=== PATIENT | female | born 1970 | race Caucasian/White ===

== ENCOUNTER 2017-04-10 08:30 | Outpatient (RCR) | payer OTHER, SELFPAY ==
--- NOTE | 2017-02-01 12:17 | HP.PTEVAL_ITS ---
Patient's Visit Information HANNAH HU is a 46 year old F referred to Physical Therapy by Tabitha Musa DO with a diagnosis of RIGHT CLAVICLE PAIN. Date of Evaluation: 02/01/17 Physical Therapist: Sarah Galvan - Visit Plan Frequency: 2-3x /Week Duration: 4-6 Weeks Plan: CERVICAL AND RIGHT SHOULDER MODALITIES NEEDED. RESPONDED WELL TO US TODAY. ADD CTX AND E-STIM WITH CP OR MH NEXT VISIT. POSTURE CORRECTION/ STRENGTHEING. KLAUS UE AND CERVICAL ROM/STRETCHING AND STRENGTHENING NEEDED. 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 Disability: NO. Present symptoms: RIGHT CLAVICLE PAIN. COMES AND GOES. INTERMITTEN LEFT NECK AND TRAP PAIN TOO PAIN IN CLAVICLE REGION INCREASES. Present since: JULY 2016. Pain Scale: WORST 5/10, LEAST 0/10. Currently: 10. UNCHANGING. Commenced as a result of: NO APPARENT REASON. Symptoms at onset: LOCALIZED RIGHT CLAVICLE REGION PAIN. Worse: SITTING IN THE CAR, SCAPULAR DEPRESSION. VERY POSITIONAL. IF SHE MOVES OUT OF THOSE POSITIONS IT GOES AWAY. Better: SEE PREVIOUS. Disturbed sleep: NO. Previous history/Previous treatment: HISTORY OF WHIPLASH A FEW TIMES. STRAIGHTENING OF THE CERVICAL LORDOSIS. NO NECK SURGERY. NO NECK INJECTIONS. NO SHOULDER SURGERY. Gait: RECENT LEFT KNEE SCOPE 3 WEEKS AGO BUT WORKING. Accidents: NONE RECENT. Unexplained weight loss: NO. Imaging: NECK AND SHOULDER X-RAYS - NEGATIVE. MRI IS NEGATIVE. BUT FOUND GOITER. HAVE SEEN SPECIALISTS FOR GOITER AND NO TREATMENT RECOMMENDED AT THIS TIME. SHE IS GOING TO HAVE A BIOPSY THOUGH. SHE HAS ALSO SEEN A FUNCTIONAL MEDICINE DOCTOR AND IS MAKING DIETARY CHANGES. PMH: POTS, GOITER - TEVIN'S DZ., RECENT LEFT CALF PAIN - WENT TO ED AND HAD DOPPLER THAT WAS NEGATIVE. Recent major surgery: KLAUS GLUT MED SURGERIES. OTHER: TINGLING IN RIGHT UE FOR YEARS IF SHE SLEEPS ON IT. GOES AWAY QUICKLY. - Objective THIS PATIENT AMBULATES INDEP'LY INTO PT WITH NO AD'S. SHE IS PLEASANT AND COOPERATIVE TO WORK WITH. KLAUS UE LIGHT TOUCH SENSATION IS INTACT AND SYMMETRICAL. KLAUS UE ROM AND STRENGTH IS WFL. CERVICAL MVMT LOSS: FLEX - NIL, PRO - NIL, EXT - MIN, RET - MOD TO LETICIA, RIGHT ROT - MOD, LEFT ROT - MIN, RIGHT SB - MIN, LEFT SB - MIN. RETRACTION, KLAUS ROTATION, LEFT SB AND TO A LESSER DEGREE RIGHT SB PROVOKES RIGHT CLAVICLE PAIN. CERVICAL DISTRACTION RELEIVES RIGHT CLAVICLE PAIN AND RETURNS ON RELEASE. TREATMENT: PATIENT WAS SEEN TODAY FOR US AT 1.5W/CM2 X 10 MIN TO KLAUS CERVICAL REGION WITH PATIENT SITTING. PATIENT WITH DECREASED CLAVICLE PAIN WITH CERICAL ROM TESTING AGAIN AFTER US. - Goals Goal 1:: DECREASE C/O RIGHT CLAVICLE PAIN Goal Time Frame: 4-6 Weeks Goal 2:: IMPROVE DRIVING AND CERVICAL ROM FUNCTION Goal Time Frame: 4-6 Weeks Goal 3:: INSTRUCT IN PROPHYLAXIS Goal Time Frame: 4-6 Weeks - Rehabilitation Potential Rehabilitation Potential: Good - Anticipated Interventions Patient/Client Instruction: Educate patient on: Condition, Plan of Care, Risk Factors, Benefits of Fitness Program For the Purpose of:: To improve self management Therapeutic Exercise to Include: Strength training, Body mechanics, Postural training, Flexibilty training, Active ROM, Scapular Strength/Stabilization For the Purpose of:: To improve ability of physical actions for home/community/ work/leisure TENS: Yes IF ES: Yes Cryotherapy (ice pack, ice massage): Yes Thermo therapy (hot pack): Yes Ultrasound (thermal/non thermal): Yes Intermittent cervical traction: Yes For the Purpose of:: To decrease pain, To decrease swelling/inflammation, To increase ROM Thank you for the opportunity to evaluate your patient. For Medicare and Medicare HMO plans, please review the plan of care and approve it. It will need to be FAXED BACK to us at [phone] for Medicare purposes. Please let me know if there are questions or concerns regarding this plan of care. Physician Signature: Date:
== END 2017-04-10 09:00 | disposition home or self-care (01) ==
LOC: PT 08:30
PROVIDERS: Family Provider Internal Medicine; PCP Internal Medicine; Visit Provider Orthopaedic Surgery
DX: M25.511 Pain in right shoulder (principal)
CPT/HCPCS: 97012 ×6; 97035 ×7; 97140 ×2; 97162; 97530; 97110

== ENCOUNTER → 2017-10-17 18:41 | Outpatient (CLI) | payer OTHER, SELFPAY ==
[2017-10-24 08:21] LABS: HPV APTIMA, High Risk Negative (Negative); HPV Reflexed? YES, CHARGE PATIENT
== END ==
PROVIDERS: Family Provider Internal Medicine; PCP Internal Medicine; Visit Provider Obstetrics & Gynecology
DX: Z12.4 Encounter for screening for malignant neoplasm of cervix (principal)
CPT/HCPCS: 87624; 88175; G0145

== ENCOUNTER → 2017-11-16 15:29 | Outpatient (CLI) | payer OTHER, SELFPAY | PROVIDERS: Family Provider Internal Medicine; PCP Internal Medicine; Visit Provider Obstetrics & Gynecology | DX: Z12.31 Encounter for screening mammogram for malignant neoplasm of breast (principal) | CPT/HCPCS: 77063; 77067 ==

== ENCOUNTER → 2017-11-29 09:10 | Outpatient (CLI) | payer OTHER, SELFPAY ==
--- NOTE | 2017-11-29 | CER_PTH ---
PATIENT: HANNAH RITTERCCJuly #:[id number] [facility] U#:[id number] AGE/SX: 54/F ROOM: RE11/29/[address]: Dr. Douglas Adrian MD : 1970 BED: DIS: SPEC #: [id number] RECD: 11/30/17 11:47 STATUS: ASAEL FLORES #: [id number] MARYJO: 11/29/17 00:[address]: Douglas Adrian DEPT: SURGICAL PATHOLOGY RECD BY: Miguelito Khoury ENTERED: 11/30/17 11:48 SP TYPE: CERV OTHR DR: Dr. Alejandro Hamilton MD Tissues: A - Uterine cervix, NOS B - Endocervical Procedures: Surgery Specimen Level IV HEADER OPERATION: Colposcopy PRE-OP DIAGNOSIS: LGSIL TISSUE SUBMITTED: A ? Cervical biopsy four quad, B - ECC MICROSCOPIC DIAGNOSIS A. Cervix, four-quadrant biopsy: Focal minimal changes suspicious for HPV cytopathic effects. Acute inflammation. B. ECC: Fragments of benign ecto- and endocervical epithelium with focal minimal changes suspicious for HPV cytopathic effects, blood and mucous. NOREEN:saravanan 12/03/17 MICROSCOPIC DESCRIPTION Slides are reviewed. GROSS DESCRIPTION A - Received in fixative is one container labeled with the patient's name and designated cervical biopsy four quadrant. The specimen consists of multiple irregular fragments of pedro soft tissue that in aggregate measure 1.2 x 0.2 x 0.1 cm. The specimen is totally submitted in one cassette. B - Received in fixative is one container labeled with the patient's name and designated ECC. The specimen consists of multiple fragments of hemorrhagic soft tissue that in aggregate measure 1 x 1 x 0.2 cm. The specimen is totally submitted in one cassette. / NOREEN:saravanan 11/30/17 TC:5 CPT: 77438 x2
== END ==
PROVIDERS: Family Provider Internal Medicine; PCP Internal Medicine; Visit Provider Obstetrics & Gynecology
DX: R87.612 Low grade squamous intraepithelial lesion on cytologic smear of cervix (LGSIL) (principal)
CPT/HCPCS: 88305

== ENCOUNTER → 2018-11-19 08:00 | Outpatient (CLI) | payer OTHER, SELFPAY ==
[2018-10-03 16:57] VITALS: BMI 23.8
--- NOTE | 2018-11-19 08:02 | BI_ITS ---
MAMMOGRAPHY - BILATERAL SCREENING REASON FOR EXAM: Female, 48 years old. Routine annual screening examination. PERTINENT HISTORY: Non-contributory. TECHNIQUE: Digital bilateral breast eugene (3D mammographic acquisition) in the CC and MLO projections. 2-D mediolateral oblique (MLO) and craniocaudad (CC) views of both breasts were obtained. CAD: Full Field Digital Mammography with Computer Added Detection was performed. COMPARISON: Comparison is made with prior examination dated November 16, 2017 and November 15, 2016. FINDINGS: Breast Composition: The breasts are heterogeneously dense, which may obscure small masses. There are no dominant masses or suspicious calcifications. No other significant abnormalities are identified. There has been no significant change since the prior study. BI/SCREEN MAMM (CAD) W/EUGENE BILAT IMPRESSION: Stable bilateral screening mammogram. Yearly follow-up mammogram recommended. (A) ASSESSMENT CATEGORY: BIRADS Category 1: Negative. A letter regarding these results will be sent to the patient by the facility within 30 days. Approximately 10% of breast cancers are not detected by mammography. A normal mammogram should not delay biopsy of a clinically suspicious abnormality. [id number] Electronically Signed: Buzz Barbour, at 9:20 EDT , Service support ,
== END ==
PROVIDERS: Family Provider Internal Medicine; PCP Internal Medicine; Referring Provider Internal Medicine; Visit Provider Internal Medicine
DX: Z12.31 Encounter for screening mammogram for malignant neoplasm of breast (principal)
CPT/HCPCS: 77063; 77067

== ENCOUNTER → 2019-01-13 16:51 | Outpatient (CLI) | payer OTHER, SELFPAY ==
[2018-10-03 16:57] VITALS: BMI 23.8
[2019-01-16 15:36] LABS: HPV APTIMA, High Risk Negative (Negative); HPV Reflexed? YES, CHARGE PATIENT
== END ==
PROVIDERS: Visit Provider Obstetrics & Gynecology
DX: Z12.4 Encounter for screening for malignant neoplasm of cervix (principal)
CPT/HCPCS: 87624; 88175; G0145

== ENCOUNTER 2020-01-03 08:19 | Outpatient (RCR) | payer OTHER, SELFPAY ==
[2019-04-03 16:41] VITALS: BMI 21.7
== END 2020-01-24 23:59 ==
LOC: LABSPEC 08:19
PROVIDERS: Internal Medicine Infectious Disease; Visit Provider Family Medicine Geriatric Medicine
DX: Z11.59 Encounter for screening for other viral diseases (principal)
CPT/HCPCS: 87635; U0003

== ENCOUNTER → 2020-01-21 | Outpatient (CLI) | payer OTHER, SELFPAY ==
[2019-04-03 16:41] VITALS: BMI 21.7
[2020-01-28 15:27] LABS: HPV APTIMA, High Risk Negative (Negative)
[2020-01-28 15:28] LABS: HPV Reflexed? YES, CHARGE PATIENT
== END | disposition home or self-care (01) ==
LOC: LABSPEC 16:53
PROVIDERS: Visit Provider Obstetrics & Gynecology
DX: Z12.4 Encounter for screening for malignant neoplasm of cervix (principal)
CPT/HCPCS: 87624; 88175; G0145

== ENCOUNTER → 2020-04-08 07:54 | Outpatient (CLI) | payer OTHER, SELFPAY ==
[2019-04-03 16:41] VITALS: BMI 21.7
--- NOTE | 2020-04-08 07:57 | BI_ITS ---
MAMMOGRAPHY - BILATERAL SCREENING REASON FOR EXAM: Female, 49 years old. Routine annual screening examination. PERTINENT HISTORY: Non-contributory. TECHNIQUE: Digital bilateral breast eugene (3D mammographic acquisition) in the CC and MLO projections. 2-D mediolateral oblique (MLO) and craniocaudad (CC) views of both breasts were obtained. CAD: Full Field Digital Mammography with Computer Added Detection was performed. COMPARISON: Comparison is made with prior study dated 11/19/2018 and 11/16/2017. FINDINGS: Breast Composition: The breasts are heterogeneously dense, which may obscure small masses. There are no dominant masses or suspicious calcifications. No other significant abnormalities are identified. There has been no significant change since the prior study. BI/SCRN MAMM (CAD)W/EUGENE BILAT IMPRESSION: Stable bilateral screening mammogram. Yearly follow-up mammogram recommended. (A) ASSESSMENT CATEGORY: BIRADS Category 1: Negative. A letter regarding these results will be sent to the patient by the facility within 30 days. Approximately 10% of breast cancers are not detected by mammography. A normal mammogram should not delay biopsy of a clinically suspicious abnormality. [id number] Electronically Signed: Buzz Barbour, at 8:48 EST , Service support ,
== END ==
PROVIDERS: PCP Internal Medicine; Referring Provider Obstetrics & Gynecology; Visit Provider Obstetrics & Gynecology
DX: Z12.31 Encounter for screening mammogram for malignant neoplasm of breast (principal)
CPT/HCPCS: 77063; 77067

== ENCOUNTER → 2020-04-20 16:12 | Outpatient (CLI) | payer OTHER, SELFPAY ==
[2020-04-15 17:08] VITALS: BMI 21.6
[2020-04-20 16:55] LABS: Absolute Lymphocyte Count 1.89 X10^3/uL (0.83-4.51); Absolute Neutrophil Count 4.5 X10^3/uL (2.0-7.7); Basophil# 0.03 X10^3/uL; Basophil% 0.4 % (0-1); Eosinophil# 0.02 X10^3/uL; Eosinophils% 0.3 % (0-5); Hematocrit 42.3 % (37-47); Hemoglobin 13.5 g/dL (12.0-15.0); Lymphocyte # 1.89 X10^3/ul (4.0); Lymphocyte % 27.1 % (19-41); Mean Corp Hgb Conc 31.9 g/dL (32-36); Mean Corpuscular Hgb 31.3 pg (27.0-32.0); Mean Corpuscular Volume 98.1 fL (81-99); Mean Platelet Vol. 10.3 fl (6.2-12.0); Monocyte# 0.53 X10^3/uL; Monocyte% 7.6 % (0-10); NRBC Flagged by Analyzer 0 % (0-5); Neutrophil # 4.49 X10^3/uL (2.7-7.7); Neutrophil % 64.3 % (47-70); Platelet Count 357 K/mm3 (150-450); RBC Distribution Width CV 13.2 % (11.6-14.6); RBC Distribution Width SD 48.4 fl (35.1-43.9); Red Blood Count 4.31 M/mm3 (4.2-5.4)
[2020-04-20 17:14] LABS: Anion Gap 5 (5-15); BUN 15 mg/dL (7-18); BUN/Creat Ratio 16.9 RATIO (10-20); Calcium,Total 9.2 mg/dL (8.5-10.1); Chloride 102 mmol/L (98-107); Cholesterol 115 mg/dL (200); Creatinine, Serum 0.88 mg/dL (0.55-1.02); EST Glomerular Filtration Rate 71 mL/min (>60); Est Glom Filt Rate - Afr Amer 86 mL/min (>60); Glucose 101 mg/dL (74-106); High Density Lipoprotein 58 mg/dL; Potassium 4.1 mmol/L (3.5-5.1); Sodium Level 138 mmol/L (136-145); T4 Free Direct 1.22 ng/dL (0.76-1.46); Thyroid Stim Hormone (TSH) 2.13 uIU/mL (0.358-3.74); Triglycerides 97 mg/dL; Very Low Density Lipoprotein 19 mg/dL (5-40)
== END ==
PROVIDERS: PCP Internal Medicine; Referring Provider Internal Medicine; Visit Provider Internal Medicine
DX: Z00.00 Encounter for general adult medical examination without abnormal findings (principal); I95.1 Orthostatic hypotension; R00.0 Tachycardia, unspecified; N93.9 Abnormal uterine and vaginal bleeding, unspecified
CPT/HCPCS: 36415; 80048; 80061; 84439; 84443; 85025

== ENCOUNTER → 2021-01-27 | Outpatient (CLI) | payer OTHER, SELFPAY ==
[2021-02-01 16:28] LABS: HPV Reflexed? NOT INDICATED
== END | disposition home or self-care (01) ==
LOC: LABSPEC 16:25
PROVIDERS: PCP Internal Medicine; Visit Provider Obstetrics & Gynecology
DX: Z12.4 Encounter for screening for malignant neoplasm of cervix (principal)
CPT/HCPCS: 88175; G0145

== ENCOUNTER 2021-04-18 07:54 | Outpatient (CLI) | payer OTHER, SELFPAY ==
--- NOTE | 2021-04-18 07:57 | BI_ITS ---
MAMMOGRAPHY - BILATERAL SCREENING REASON FOR EXAM: Female, 50 years old. Routine annual screening examination. PERTINENT HISTORY: Non-contributory. TECHNIQUE: Digital bilateral breast eugene (3D mammographic acquisition) in the CC and MLO projections. 2-D mediolateral oblique (MLO) and craniocaudad (CC) views of both breasts were obtained. CAD: Full Field Digital Mammography with Computer Added Detection was performed. COMPARISON: Comparison is made with prior study dated 10/06/2020 and 11/19/2018. FINDINGS: Breast Composition: The breasts are heterogeneously dense, which may obscure small masses. There are no dominant masses or suspicious calcifications. No other significant abnormalities are identified. There has been no significant change since the prior study. BI/SCRN MAMM (CAD)W/EUGENE BILAT IMPRESSION: Stable bilateral screening mammogram. Yearly follow-up mammogram recommended. (A) ASSESSMENT CATEGORY: BIRADS Category 1: Negative. A letter regarding these results will be sent to the patient by the facility within 30 days. Approximately 10% of breast cancers are not detected by mammography. A normal mammogram should not delay biopsy of a clinically suspicious abnormality. [id number] Electronically Signed: Buzz Barbour MD at 9:02 EST , Service support ,
== END 2021-04-18 23:59 | disposition short-term general hospital (02) ==
LOC: OPBI 07:55
PROVIDERS: PCP Internal Medicine; Referring Provider Obstetrics & Gynecology; Visit Provider Obstetrics & Gynecology
DX: Z12.31 Encounter for screening mammogram for malignant neoplasm of breast (principal)
CPT/HCPCS: 77063; 77067

== ENCOUNTER 2021-05-31 15:25 | Outpatient (CLI) | payer OTHER, SELFPAY ==
[2021-05-31 17:17] LABS: Absolute Lymphocyte Count 1.58 X10^3/uL (0.83-4.51); Absolute Neutrophil Count 3.9 X10^3/uL (2.0-7.7); Basophil# 0.03 X10^3/uL; Basophil% 0.5 % (0-1); Eosinophil# 0.06 X10^3/uL; Hematocrit 39.8 % (37-47); Hemoglobin 13.3 g/dL (12.0-15.0); Lymphocyte # 1.58 X10^3/ul (0.83-4.51); Lymphocyte % 26.6 % (19-41); Mean Corp Hgb Conc 33.4 g/dL (32-36); Mean Corpuscular Hgb 32.9 pg (27.0-32.0); Mean Corpuscular Volume 98.5 fL (81-99); Mean Platelet Vol. 10.5 fl (6.2-12.0); Monocyte# 0.37 X10^3/uL; Monocyte% 6.2 % (0-10); NRBC Flagged by Analyzer 0 % (0-5); Neutrophil # 3.87 X10^3/uL (2.7-7.7); Neutrophil % 65.2 % (47-70); Platelet Count 333 K/mm3 (150-450); RBC Distribution Width SD 47.1 fl (35.1-43.9); Red Blood Count 4.04 M/mm3 (4.2-5.4); White Blood Count 5.9 K/mm3 (4.4-11.0)
[2021-05-31 17:42] LABS: ALB/GLOB Ratio 1.3 RATIO (0.9-2.4); AST(SGOT) 21 U/L (15-37); Alanine Aminotransfer ALT/SGPT 27 U/L (13-56); Albumin, Serum 3.9 g/dL (3.2-5.0); Alkaline Phosphatase 43 U/L (45-117); Anion Gap 3 (5-15); BUN 13 mg/dL (7-18); BUN/Creat Ratio 15.5 RATIO (10-20); Calcium,Total 8.7 mg/dL (8.5-10.1); Chloride 102 mmol/L (98-107); Cholesterol 113 mg/dL (200); Creatinine, Serum 0.84 mg/dL (0.55-1.02); EST Glomerular Filtration Rate 76 mL/min (>60); Est Glom Filt Rate - Afr Amer 92 mL/min (>60); Globulin 2.9 g/dL (2.2-4.2); Glucose 111 mg/dL (74-106); High Density Lipoprotein 49 mg/dL; Potassium 4.3 mmol/L (3.5-5.1); Protein, Total 6.8 g/dL (6.4-8.2); Sodium Level 136 mmol/L (136-145); Triglycerides 134 mg/dL; Very Low Density Lipoprotein 27 mg/dL (5-40)
== END 2021-05-31 23:59 | disposition home or self-care (01) ==
LOC: BIMLAB 15:26
PROVIDERS: PCP Internal Medicine; Referring Provider Internal Medicine; Visit Provider Internal Medicine
DX: Z00.00 Encounter for general adult medical examination without abnormal findings (principal)
CPT/HCPCS: 36415; 80053; 80061; 85025

== ENCOUNTER → 2022-02-17 | Outpatient (CLI) | payer OTHER, SELFPAY ==
--- NOTE | 2022-02-17 09:42 | RAD_ITS ---
STUDY: X-RAY - RIGHT KNEE REASON FOR EXAM: Female, 51 years old. Knee pain. TECHNIQUE: 4 view(s) of the knee. COMPARISON: None. FINDINGS: Growth arrest lines in the distal femur. Normal visualized proximal tibia and fibula. Normal proximal tibiofibular articulation. Mild medial compartmental arthrosis. Normal lateral femorotibial compartment. Normal patellofemoral articulation. The soft tissue structures are unremarkable. RAD/Knee 4 or More Views IMPRESSION: Mild medial compartmental arthrosis. No acute abnormality, chondrocalcinosis or erosive changes. Electronically Signed: Eduardo Mendieta, at 10:09 EST ,
== END | disposition home or self-care (01) ==
LOC: MTRAD 09:41
PROVIDERS: PCP Internal Medicine; Referring Provider Physician Assistant; Visit Provider Physician Assistant
DX: M70.51 Other bursitis of knee, right knee (principal)
CPT/HCPCS: 73564

== ENCOUNTER 2022-02-23 09:34 | Emergency (ER) | payer OTHER, SELFPAY ==
[2022-02-23 09:34] VITALS: BP 119/80; PULSE 82; RESP 16; TEMP 36.7; O2SAT 100; BMI 22.3
[2022-02-23 10:28] LABS: Anion Gap 5 (5-15); BUN 12 mg/dL (7-18); BUN/Creat Ratio 17.1 RATIO (10-20); Calcium,Total 8.6 mg/dL (8.5-10.1); Chloride 102 mmol/L (98-107); EST Glomerular Filtration Rate 93 mL/min (>60); Est Glom Filt Rate - Afr Amer 112 mL/min (>60); Estimated Creatinine Clearance 103.88 ml/min; Glucose 96 mg/dL (74-106); Potassium 3.7 mmol/L (3.5-5.1); Sodium Level 139 mmol/L (136-145)
[2022-02-23] MEDS: 0.9% Normal Saline 1,000 ML 1000 ML IV ×2 (10:39→11:59)
[2022-02-23] MEDS: Ondansetron 4 MG/2 ML Vial IV (10:39)
[2022-02-23 12:00] VITALS: BP 120/78; PULSE 82; RESP 16; O2SAT 99
--- NOTE | 2022-02-23 12:36 | EDS_ITS ---
HPI History of Present Illness Chief Complaint: Nausea/Vomiting Detail of Chief Complaint: Nausea, vomiting, congestion, cough and myalgias and arthralgias Informant: patient Onset/Context/Timing Onset: Days (Onset Sunday) Context: Sudden Onset Timing: Continuous and Waxes and wanes Quality: Nausea, vomiting and respiratory Location: GI and upper respiratory Current Severity: Severe Maximum Severity: Severe Worsened by: Attempts to eat or drink anything Relieved by: Nothing Associated Symptoms Associated Symptoms: Initially GI symptoms now respiratory Narrative Narrative: Patient is a 51-year-old woman who presents with nausea vomiting. She is not eating solid since Sunday. She does not anything to drink since Sunday. She does complain of thirst and dry mouth. She does get orthostatic symptoms. She denies diarrhea. Over the past 24 8 hours she has had respiratory symptoms with congestion and cough. Cough is nonproductive. She does complain of myalgias arthralgias. She had a document temperature 103.0 ?F. She denies rash. She denies joint swelling. She states she feels terrible. Patient son was ill with viral-like symptoms. She has been immunized for influenza. Prior similar symptoms: No Recent Illness/Hospitalization: No [facility] Medical History Anxiety Gastroenteritis Goiter IBS (irritable bowel syndrome) POTS (postural orthostatic tachycardia syndrome) SIBO Home Medications multivitamin,[id number]-hhdt-[id number] 27 mg-0.4 mg tablet 1 tab PO DAILY 01/29/17 [History Last Taken Unknown] krill 1,000 mg-omega-3 170 mg-dha 50 mg-epa 80 da-ldykge-dcixd capsule (krill oil) 1 cap PO BID 04/19/17 [History Last Taken Unknown] cholecalciferol (vitamin D3) 125 mcg (5,000 unit) disintegrating tablet unit PO 04/03/19 [History Last Taken Unknown] magnesium 30 mg tablet 30 mg PO DAILY 04/15/20 [History Last Taken Unknown] melatonin 10 mg capsule 5 mg PO HS 04/15/20 [History Last Taken Unknown] vitamin B complex 1 cap PO DAILY 04/15/20 [History Last Taken Unknown] meloxicam 15 mg tablet 15 mg PO DAILY #30 tabs 02/17/22 [Rx Last Taken Unknown] ondansetron 4 mg disintegrating tablet 4 mg PO Q8H PRN PRN Nausea #10 tabs 02/23/22 [Rx Last Taken Unknown] Allergy/AdvReac Type Severity Reaction Status Date / Time naproxen sodium [From Aleve] Allergy Severe Hives Verified 02/23/22 09:36 Penicillins [PCN] Allergy Unknown Unknown Verified 02/23/22 09:36 midodrine Allergy Rash Verified 02/23/22 09:36 Sulfa (Sulfonamide AdvReac Severe Other Verified 02/23/22 09:36 Antibiotics) Family History Mother Heart disease Hypertension Father Hypertension Arthritis Anxiety Hyperlipemia Grandfather Myocardial infarction, Onset Age: 60 Aunt Myocardial infarction, Onset Age: 75 CLL (chronic lymphocytic leukemia) Surgical History hemangeoma left elbow hemangeoma left elbow History of appendectomy History of appendectomy History of arthroscopy of left knee History of History of section History of thyroid surgery History of tonsillectomy History of tonsillectomy left glute medius tenson repair left knee scope left knee scope Mucinous cystadenoma of right ovary right glute medius tendon repair Right Mucinous Cystadenoma Tendinopathy of left gluteus medius Tendinopathy of right gluteal region Social History (Updated 02/23/22 @ 12:[address] Raymond Funes MD) household members: spouse and children Smoking Status: Never smoker alcohol intake: current alcohol intake frequency: holidays/special occasions only substance use type: does not use frequency: 5-6 times per week ROS ROS ED Constitutional Constitutional ED: Reports chills, fever(s) and sweats Eyes Eyes: Denies blurry vision, change in vision or diplopia ENT ENT ED: Reports rhinorrhea and sore throat; Denies ear pain Cardiovascular Cardiovascular: Denies chest pain, orthopnea, palpitations, paroxysmal nocturnal dyspnea or racing heartbeat Respiratory/Chest Respiratory/Chest: Reports cough and dyspnea; Denies dyspnea on exertion, orthopnea, paroxysmal nocturnal dyspnea or sputum Gastrointestinal Gastrointestinal: Reports abdominal pain, nausea and vomiting; Denies constipation, diarrhea or melena Genitourinary Genitourinary ED: Denies dysuria, hematuria or urinary frequency Musculoskeletal Musculoskeletal: Denies arthralgias, back pain, myalgias or neck pain Integumentary Denies abscess, Abrasions or rash Neurologic Neurologic: Denies headache(s), paresthesias or weakness Endocrine Endocrinology: Denies cold intolerance or heat intolerance Hematologic/Lymphatic Hematologic/Lymphatic: Reports systems reviewed and no addt'l complaints, except as documented and none EXAM Physical Exam Const Vital Signs: 02/23/22 09:34 02/23/22 12:00 Temperature 98.1 F Temperature Source Temporal Pulse Rate 82 82 Respiratory Rate 16 16 Blood Pressure 119/80 120/78 Blood Pressure Mean 93 92 Pulse Ox 100 99 Oxygen Delivery Method Room Air Positive well nourished and well developed General Appearance ED: well developed and NAD; Negative for cyanotic or diaphoretic HEENT Reports dry mucous membranes HEENT Narrative: Head is atraumatic normocephalic. Ears normal. Nares patent. Uvula midline. No erythema or exudate the posterior pharynx. Mouth ED: Yes dry mucous membranes Mouth: dry mucous membranes Eyes PERRL and EOMs intact bilaterally General Eye ED: Negative for pale conjunctiva or scleral icterus Neck no lymphadenopathy, supple and no JVD Chest Wall inspection of chest normal and palpation of chest normal Resp normal respiratory effort and clear to auscultation bilaterally Cardio regular rate, regular rhythm, S1 normal heart sound, S2 normal heart sound and no murmurs GI normal to inspection, nondistended, normoactive bowel sounds, non-tender, non- distended and no masses; Negative for hepatosplenomegaly Palpation: soft Back/Spine no CVA tenderness Extremity normal to inspection General Extremety ED: Negative for edema or tenderness General Extremity: Negative for edema Neuro oriented x3, CN's II-XII intact bilaterally and no sensory deficits noted Sensorium / Orientation: alert Psych mental status grossly normal Skin no rashes or lesions noted, no wounds and skin turgor normal MDM MDM MDM Narrative Medical decision making narrative: Clinically patient is dehydrated. Concern patient has influenza in light of her symptoms. Influenza test was obtained. Influenza was positive for influenza A. Basic metabolic panel was obtained to assess renal function and electrolytes. Patient was ordered 2 L of normal saline and Zofran. She states the nausea has improved with Zofran. She has not urinated. Will order third liter if needed. Patient urinated after the third liter of normal saline. She feels markedly better. Plan is to discharge to home. Lab Data Labs: Laboratory Results - last 24 hr 02/23/22 02/23/22 10:12 14:15 Sodium 139 Potassium 3.7 Chloride 102 Carbon Dioxide 32.0 Anion Gap 5 BUN 12 Creatinine 0.70 Estim Creat Clear Calc 103.88 Est GFR (MDRD) Af Amer 112 Est GFR (MDRD) Non-Af 93 BUN/Creatinine Ratio 17.1 Glucose 96 Calcium 8.6 Urine Color Yellow Urine Clarity Sl. Cloudy Urine pH 6.5 Ur Specific [place] 1.015 Urine Protein 15 H Urine Glucose (UA) Normal Urine Ketones 150 A* Urine Occult Blood Negative Urine Nitrite Negative Urine Bilirubin Negative Urine Urobilinogen Normal Ur Leukocyte Esterase Negative Urine RBC 0 SEEN Urine WBC 0 SEEN Ur Squamous Epith Cells 0-5 SEEN Urine Bacteria 0 SEEN Urine Mucus 0 SEEN Discharge Plan Triage Chief Complaint: Nausea/Vomiting ED Provider: Raymond Funes Dx/Rx/DC Orders Clinical Impression: Type A influenza, Intractable nausea and vomiting, Moderate dehydration, Ketosis Instructions: ED Influenza (Adult) Prescriptions: New ondansetron [ondansetron] 4 mg tablet,disintegrating 4 mg PO Q8H PRN PRN (Reason: Nausea) Qty: 10 0RF No Action [id number]-cyw-[id number]-[id number]-ast [krill oil] 1,346-050-16-50 mg capsule 1 cap PO BID melatonin 10 mg capsule 5 mg PO HS cholecalciferol (vitamin D3) 5,000 unit tablet,disintegrating PO vitamin B complex Capsule 1 cap PO DAILY magnesium 30 mg tablet 30 mg PO DAILY meloxicam 15 mg tablet 15 mg PO DAILY Qty: 30 0RF Label Comments: hold while on nsaids multivitamin,cs-aepk-nksspacl 1 TABLET tablet 1 tab PO DAILY Primary Care Provider: Alejandro Hamilton Referrals: Alejandro Hamilton MD [Primary Care Provider] - 1 Week if not improving Disposition Disposition: Home, Self Care
[2022-02-23] MEDS: 0.9% Normal Saline 1,000 ML 999 ML IV (13:17)
[2022-02-23 14:18] LABS: Bacteria 0 SEEN /hpf (None Seen); Mucous, Urine 0 SEEN /hpf (<or=2+); Red Blood Cells-Urine 0 SEEN /hpf (0-5); White Blood Cells 0 SEEN /hpf (0-5)
[2022-02-23 14:19] LABS: Color, Urine Yellow (Yellow); Glucose, Dipstick Normal (Normal); Leukocyte Esterase-Dipstick Negative /ul (Negative); Nitrite-Dipstick Negative (Negative); Occult Blood-Urine Negative /ul (Negative); Protein-Dipstick 15 mg/dl (Negative); Specific Gravity, Urine 1.015 (1.002-1.030); Urine Bilirubin Dipstick Negative (Negative); Urine Clarity Sl. Cloudy (Clear); Urine Urobilinogen Normal (Normal); Urine pH 6.5 (5.0 - 8.0)
[2022-02-23 14:22] LABS: Ketone-Dipstick 150 mg/dl (Negative)
[2022-02-23 14:28] LABS: Squamous Epithelial Cells - UA 0-5 SEEN /hpf (5-10)
[2022-02-23 15:03] VITALS: BP 117/66; PULSE 79; RESP 16; O2SAT 99
== END 2022-02-23 15:09 | disposition home or self-care (01) ==
PROVIDERS: Emergency Provider Emergency Medicine; PCP Internal Medicine; Visit Provider Emergency Medicine
DX: J10.1 Influenza due to other identified influenza virus with other respiratory manifestations (principal); E88.89 Other specified metabolic disorders; R11.2 Nausea with vomiting, unspecified; E86.0 Dehydration; M79.10 Myalgia, unspecified site
CPT/HCPCS: 80048; 81001; 87804; 96361; 96374; 99283; J7030; J2405

== ENCOUNTER → 2022-02-27 | Outpatient (CLI) | payer OTHER, SELFPAY | END | disposition home or self-care (01) | LOC: LABSPEC 10:58 | PROVIDERS: PCP Internal Medicine; Referring Provider Physician Assistant; Visit Provider Physician Assistant | DX: R05.9 Cough, unspecified (principal); Z11.59 Encounter for screening for other viral diseases | CPT/HCPCS: 87635; U0003; U0005 ==

== ENCOUNTER 2022-05-01 08:00 | Outpatient (RCR) | payer OTHER, SELFPAY ==
--- NOTE | 2022-01-12 10:06 | HP.PTEVAL_ITS ---
Patient's Visit Information HANNAH HU is a 51 year old F referred to Physical Therapy by MAXIM SALDANA with a diagnosis of Right Knee Pain. Date of Evaluation: 01/12/22 Physical Therapist: Traci Fuentes DPT - Visit Plan Frequency: 2x /Week Duration: 4 Weeks Plan: Focus on LE and core strength/stabilization- US and DN as modality of choice. HEP Given IE: quad set with towel roll - Subjective Patient reports that she has bursitis in her right knee- she went hiking in [place] in the last week of September- downhills were really bothering her- she used trecking poles which helped. When she got back the pain just continued to get worse. She thought it would get better and it didn't- was biking and then yoga and its not better. Pain is located in pes anserine- and it radiates around the medial knee and into the hamstring. She feels like she has a sleeve on and the patella isn't in the correct location. Went to see DO for her SI joint- and they saw her for her knee too- Meloxicam which is helping- she has had no images. No radiating pain. Decribes the pain as sharp if you push on it-dull and achy with movement- prior it was sharp with heel strike. Worst: 6/10 Agg: pushing on it, downhills, stairs (down specifically), kneeling. Best: 0/10 Eases: elevation, rest, ice. Sleep: disturbed if she loses the pillow between her knees- side sleeper. 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 PMHx: left knee 04' meniscal repair- 17' repair and drain of rabago's cyst- bilateral glut med tendon repairs, SI dysfunction. Meds: Meloxicam, Vitamins - Objective Posture: fair throughout treatment session. Gait: slightly antalgic- decreased heel strike into full extension. Stairs: asc/desc 8'' recip- asc does have mild vaulting to avoid full extension of the right LE, Desc: poor control. HR/TR: able. SLS: 30 sec with increased sway and reports instability. Palpation: tender along medial joint line, pes anserine, posterior medial knee. Observation: mild edema along pes anserine. ROM: 5-125 with pain at end ranges- can get to full extension with pain. Strength: Knee: quad set fair but does have 10 degree lag with SLR due to pain- hamstring strength: 4+/5 with discomfort. - Balance/Special Test Scores Lower Extremity Functional Score: 53 - Goals Goal 1:: Patient will be I with HEP and progression Goal Time Frame: 4-6 Weeks Goal 2:: Patient will asc/desc 8 recip with no HR and good control Goal Time Frame: 4-6 Weeks Goal 3:: Patient will ambulate >300 feet with a normalized gait pattern Goal Time Frame: 4-6 Weeks Goal 4:: Patient will report 80% improvement Goal Time Frame: 4-6 Weeks - Rehabilitation Potential Physical Therapy Diagnosis: Patient presents with hypomobility- she has decreased LE and core strength/stabilization, flex, ROM and muscular endurance leading to abnormal gait and increased pain with ADL's Rehabilitation Potential: Good - Anticipated Interventions Patient/Client Instruction: Educate patient on: Benefits of Fitness Program Therapeutic Exercise to Include: Strength training, Endurance training, Balance training, Coordination, Agility training, Body mechanics, Postural training, Flexibilty training, Gait and locomotor training, Neuromotor development, Dynamic Lumbar Stabilization, Scapular Strength/Stabilization For the Purpose of:: To improve muscle performance and motor function TENS: Yes Thermo therapy (hot pack): Yes Ultrasound (thermal/non thermal): Yes For the Purpose of:: To improve muscle performance and motor function Thank you for the opportunity to evaluate your patient. For Medicare and Medicare HMO plans, please review the plan of care and approve it. It will need to be FAXED BACK to us at [phone] for Medicare purposes. For Medicare only, by signing this I certify the plan of care. Please let me know if there are questions or concerns regarding this plan of care. Physician Signature:_ Date:
--- NOTE | 2022-02-09 08:29 | HP.PTREVAL ---
MAXIM SALDANA, It has been my pleasure to treat HANNAH HU over the last 9 visits for Right Knee Pain. Please see the progress note below for an update on the physical therapy plan of care! Subjective: Patient reports that she stopped the Meloxicam- Sunday and has been miserable since. She had to get up in the middle of the night last night and put ice on it- she can place her hand directly on the area. Functionally is 80% better but the pain is the same. She is able to much more of her workout activities but is still limited. Objective/Function: Posture: fair throughout treatment session. Gait: no deviation noted Stairs: asc/desc 8'' asc/desc good control no HR HR/TR: able. SLS: 30 sec with increased sway and reports instability. Palpation: tender along medial joint line, pes anserine, posterior medial knee. ROM: 0-140 Strength: Knee: Extn: 70 lbs, Flexion: 45 lbs. Plan Plan: 02/09/22: Patient has met all PT goals but she has not been able to functionally return to baseline with activities. Refer back to MD for further evaluation and follow up PRN with PT. IE: Focus on LE and core strength/stabilization- US and DN as modality of choice Balance/Gait/Functional tests - Balance/Special Test Scores Lower Extremity Functional Score: 59 Goals Goal 1:: Patient will be I with HEP and progression Goal Time Frame: 4-6 Weeks Goal Progress: Goal Met Goal 2:: Patient will asc/desc 8 recip with no HR and good control Goal Time Frame: 4-6 Weeks Goal Progress: Goal Met Goal 3:: Patient will ambulate >300 feet with a normalized gait pattern Goal Time Frame: 4-6 Weeks Goal Progress: Goal Met Goal 4:: Patient will report 80% improvement Goal Time Frame: 4-6 Weeks Goal Progress: Goal Met Anticipated Interventions Patient/Client Instruction: Educate patient on: Benefits of Fitness Program Therapeutic Exercise to Include: Strength training, Endurance training, Balance training, Coordination, Agility training, Body mechanics, Postural training, Flexibilty training, Gait and locomotor training, Neuromotor development, Dynamic Lumbar Stabilization, Scapular Strength/Stabilization For the Purpose of:: To improve muscle performance and motor function TENS: Yes Thermo therapy (hot pack): Yes Ultrasound (thermal/non thermal): Yes For the Purpose of:: To improve muscle performance and motor function Please do not hesitate to contact me at [phone] by phone or if you have questions or concerns regarding this new plan of care! Sincerely, ESTEPHANIA HuddlestonT
--- NOTE | 2022-03-08 07:59 | HP.PTREVAL ---
MAXIM PERKINS, It has been my pleasure to treat HANNAH HU over the last 10 visits for Right Knee Pain. Please see the progress note below for an update on the physical therapy plan of care! Subjective: Patient reports that she got an injection the day after Thanksgiving and then ended up getting the flu- was down for 8 days. She had to stop the Meloxicam when she had the flu then when you got better without the medication her knee was painful randomly pulsate throughout the day. She has been doing ice massages which is not making it better. Currently: its better daily function she is fine- steps and car transfers are good- but she is not able to bend all the way, go down inclines. She is point tender on the medial insertion. She had x-rays which were negative. She has not had an MRI. Objective/Function: Posture: fair throughout treatment session. Gait: no deviation noted Stairs: asc/desc 8'' asc/desc good control no HR HR/TR: able. SLS: 30 sec with increased sway and reports instability. Palpation: pes anserine. ROM: 0-140 Strength: Knee: Extn: 73.5 lbs, Flexion: 42 lbs (Strength Ratio is 56%- goal is 67%). Plan Plan: 03/08/22: Referral back to PT for continued strengthening- FOCUS ON POSTERIOR CHAIN. 02/09/22: Patient has met all PT goals but she has not been able to functionally return to baseline with activities. Refer back to MD for further evaluation and follow up PRN with PT. IE: Focus on LE and core strength/stabilization- US and DN as modality of choice Balance/Gait/Functional tests - Balance/Special Test Scores Lower Extremity Functional Score: 61 Goals Goal 1:: Patient will be I with HEP and progression Goal Time Frame: 4-6 Weeks Goal Progress: Goal Met Goal 2:: Patient will asc/desc 8 recip with no HR and good control Goal Time Frame: 4-6 Weeks Goal Progress: Goal Met Goal 3:: Patient will ambulate >300 feet with a normalized gait pattern Goal Time Frame: 4-6 Weeks Goal Progress: Goal Met Goal 4:: Patient will report 80% improvement Goal Time Frame: 4-6 Weeks Goal Progress: Goal Met Goal 5:: Patient will demo 3:2 strength ration of Quads/Hamstring to demo increased posterior chain strength with dynamometer Anticipated Interventions Patient/Client Instruction: Educate patient on: Benefits of Fitness Program Therapeutic Exercise to Include: Strength training, Endurance training, Balance training, Coordination, Agility training, Body mechanics, Postural training, Flexibilty training, Gait and locomotor training, Neuromotor development, Dynamic Lumbar Stabilization, Scapular Strength/Stabilization For the Purpose of:: To improve muscle performance and motor function TENS: Yes Thermo therapy (hot pack): Yes Ultrasound (thermal/non thermal): Yes For the Purpose of:: To improve muscle performance and motor function Please do not hesitate to contact me at [phone] by phone or if you have questions or concerns regarding this new plan of care! Sincerely, ESTEPHANIA HuddletsonT
--- NOTE | 2022-06-19 08:03 | HP.PT.NRP ---
HANNAH HU was seen in my office for initial evaluation on 01/12/22. The following Plan of Care was established for this patient: Initial Frequency: 2x /Week Initial Duration: 4 Weeks Patient/Client Instruction: Educate patient on: Benefits of Fitness Program Therapeutic Exercise to Include: Strength training, Endurance training, Balance training, Coordination, Agility training, Body mechanics, Postural training, Flexibilty training, Gait and locomotor training, Neuromotor development, Dynamic Lumbar Stabilization, Scapular Strength/Stabilization For the Purpose of:: To improve muscle performance and motor function TENS: Yes Thermo therapy (hot pack): Yes Ultrasound (thermal/non thermal): Yes For the Purpose of:: To improve muscle performance and motor function This patient was last seen in our office . Pertinent comments regarding their Physical therapy will appear below: Patient to hold on therapy- discharge at this time and return PRN At this point I will be discontinuing this patient from physical therapy. I would be happy to see this patient again in the future if found appropriate by the physician. Thank you! Traci Fuentes, ESTEPHANIAT Balance/Gait/Functional tests - Balance/Special Test Scores Lower Extremity Functional Score: 64
== END 2022-05-01 19:00 | disposition home or self-care (01) ==
LOC: PT 08:00
PROVIDERS: PCP Internal Medicine
DX: M70.50 Other bursitis of knee, unspecified knee (principal); M25.561 Pain in right knee
CPT/HCPCS: 97033; 97035; 97110; 97162; 97164

== ENCOUNTER → 2022-05-03 | Outpatient (CLI) | payer OTHER, SELFPAY ==
--- NOTE | 2022-05-03 08:45 | MRI_ITS ---
EXAM: MR RIGHT LOWER EXTREMITY WITHOUT INTRAVENOUS CONTRAST, KNEE CLINICAL INDICATION: RIGHT knee pain, NKI TECHNIQUE: Multiplanar and multisequence MR images of the right knee without intravenous contrast. This report was created using [employer] report generation technology. COMPARISON: Right knee radiography February 18, 2020 FINDINGS: BONES/JOINTS: Subtle ill-defined bone marrow edema along the peripheral aspect of the medial tibial plateau and medial tibial metaphysis without fracture line. Bone marrow edema at the anterosuperior patella. Could represent bone contusion with no fracture identified. Adjacent focal subcutaneous edema and also signal alteration involving the distal quadriceps tendon suggests a partial-thickness low to moderate grade tear. No synovial hypertrophy. No intra-articular body. EXTENSOR MECHANISM: Signal alteration involving the distal quadriceps tendon suggesting a partial-thickness low to moderate grade tear. No synovial hypertrophy. No intra-articular body. MEDIAL MENISCUS: Tiny radial tear at the anterior portion of the posterior horn of the medial meniscus. There also appears to be a very small longitudinal oblique tear of the posterior horn medial meniscus with tear contacting the inferior meniscal surface. LATERAL MENISCUS: Unremarkable. MEDIAL CAPSULE/SUPPORTING STRUCTURES: Unremarkable. Intact. LATERAL CAPSULE/SUPPORTING STRUCTURES: Unremarkable. Lateral collateral ligamentous complex, inclusive of the popliteal tendon, are intact. ANTERIOR CRUCIATE LIGAMENT: Unremarkable. Intact. POSTERIOR CRUCIATE LIGAMENT: Unremarkable. Intact. MUSCLES: Unremarkable. CARTILAGE: Unremarkable. No focal chondral defects. FLUID: Physiologic amounts of suprapatellar joint fluid. Very small Yepez''s cyst identified. No joint effusion. OTHER SOFT TISSUES: See above. MRI/Lower Ext Joint Only (Routine) IMPRESSION: 1. Tiny radial tear at the anterior portion of the posterior horn of the medial meniscus. Very small longitudinal oblique tear of the posterior horn medial meniscus with tear contacting the inferior meniscal surface. 2. Small area of bone marrow edema at the anterosuperior patella which may represent bone contusion with no fracture line identified. Adjacent focal subcutaneous edema and also signal alteration involving the distal quadriceps tendon suggests a partial-thickness low to moderate grade tear in the appropriate clinical setting. 3. Subtle ill-defined bone marrow edema along the peripheral aspect of the medial tibial plateau and adjacent medial tibial metaphysis without fracture line. Consider bone contusion in the setting of trauma. Electronically Signed: Ben Colindres MD at 14:26 EST ,
== END | disposition home or self-care (01) ==
PROVIDERS: PCP Internal Medicine; Visit Provider Physician Assistant
DX: M25.561 Pain in right knee (principal); M70.51 Other bursitis of knee, right knee
CPT/HCPCS: 73721

== ENCOUNTER → 2022-08-03 | Outpatient (CLI) | payer OTHER, SELFPAY ==
--- NOTE | 2022-08-03 08:24 | BI_ITS ---
MAMMOGRAPHY - BILATERAL SCREENING REASON FOR EXAM: Female, 51 years old. Routine annual screening examination. PERTINENT HISTORY: Non-contributory. TECHNIQUE: Digital bilateral breast eugene (3D mammographic acquisition) in the CC and MLO projections. 2-D mediolateral oblique (MLO) and craniocaudad (CC) views of both breasts were obtained. CAD: Full Field Digital Mammography with Computer Added Detection was performed. COMPARISON: Comparison is made with prior study dated April 18, 2021 and April 08, 2020. FINDINGS: Breast Composition: The breasts are heterogeneously dense, which may obscure small masses. There are no dominant masses or suspicious calcifications. No other significant abnormalities are identified. There has been no significant change since the prior study. BI/SCRN MAMM (CAD)W/EUGENE BILAT IMPRESSION: Stable bilateral screening mammogram. Yearly follow-up mammogram recommended. (A) ASSESSMENT CATEGORY: BIRADS Category 1: Negative. A letter regarding these results will be sent to the patient by the facility within 30 days. Approximately 10% of breast cancers are not detected by mammography. A normal mammogram should not delay biopsy of a clinically suspicious abnormality. [id number] Electronically Signed: Buzz Barbour MD at 9:52 EDT ,
== END | disposition home or self-care (01) ==
LOC: OPBI 08:21
PROVIDERS: PCP Internal Medicine; Referring Provider Obstetrics & Gynecology; Visit Provider Obstetrics & Gynecology
DX: Z12.31 Encounter for screening mammogram for malignant neoplasm of breast (principal)
CPT/HCPCS: 77063; 77067

== ENCOUNTER → 2022-10-23 | Outpatient (CLI) | payer OTHER, SELFPAY ==
[2022-10-23 16:44] LABS: Absolute Lymphocyte Count 1.43 X10^3/uL (0.83-4.51); Absolute Neutrophil Count 3.7 X10^3/uL (2.0-7.7); Basophil# 0.03 X10^3/uL; Basophil% 0.5 % (0-1); Eosinophil# 0.04 X10^3/uL; Eosinophils% 0.7 % (0-5); Hematocrit 40.3 % (37-47); Hemoglobin 13.1 g/dL (12.0-15.0); Lymphocyte # 1.43 X10^3/ul (0.83-4.51); Lymphocyte % 25.9 % (19-41); Mean Corp Hgb Conc 32.5 g/dL (32-36); Mean Corpuscular Volume 98.5 fL (81-99); Mean Platelet Vol. 10.4 fl (6.2-12.0); Monocyte# 0.29 X10^3/uL; Monocyte% 5.3 % (0-10); NRBC Flagged by Analyzer 0 % (0-5); Neutrophil # 3.71 X10^3/uL (2.7-7.7); Neutrophil % 67.2 % (47-70); Platelet Count 355 K/mm3 (150-450); RBC Distribution Width CV 13.3 % (11.6-14.6); RBC Distribution Width SD 48.3 fl (35.1-43.9); Red Blood Count 4.09 M/mm3 (4.2-5.4); White Blood Count 5.5 K/mm3 (4.4-11.0)
[2022-10-23 19:28] LABS: ALB/GLOB Ratio 1.4 RATIO (0.9-2.4); AST(SGOT) 21 U/L (15-37); Alanine Aminotransfer ALT/SGPT 27 U/L (13-56); Albumin, Serum 3.7 g/dL (3.2-5.0); Alkaline Phosphatase 57 U/L (45-117); Anion Gap 4 (5-15); BUN 12 mg/dL (7-18); BUN/Creat Ratio 12.5 RATIO (10-20); Calcium,Total 8.7 mg/dL (8.5-10.1); Chloride 104 mmol/L (98-107); Cholesterol 109 mg/dL (200); Creatinine, Serum 0.96 mg/dL (0.55-1.02); EST Glomerular Filtration Rate 65 mL/min (>60); Est Glom Filt Rate - Afr Amer 78 mL/min (>60); Globulin 2.7 g/dL (2.2-4.2); Glucose 105 mg/dL (74-106); High Density Lipoprotein 52 mg/dL; Potassium 4.3 mmol/L (3.5-5.1); Protein, Total 6.4 g/dL (6.4-8.2); Sodium Level 138 mmol/L (136-145); Thyroid Stim Hormone (TSH) 0.63 uIU/mL (0.358-3.74); Triglycerides 146 mg/dL; Very Low Density Lipoprotein 29 mg/dL (5-40)
== END | disposition home or self-care (01) ==
LOC: BIMLAB 14:36
PROVIDERS: PCP Internal Medicine; Referring Provider Internal Medicine; Visit Provider Internal Medicine
DX: R00.0 Tachycardia, unspecified (principal); I95.1 Orthostatic hypotension; F41.9 Anxiety disorder, unspecified
CPT/HCPCS: 36415; 80053; 80061; 84443; 85025

== ENCOUNTER 2023-06-11 08:30 | Outpatient (RCR) | payer OTHER, SELFPAY ==
--- NOTE | 2023-04-03 09:13 | HP.PTEVAL_ITS ---
Patient's Visit Information Visit Information Visit Information: HANNAH HU is a 52 year old F referred to Physical Therapy by HIREN HYLTON with a diagnosis of Trochanteric bursitis. Date of Evaluation: 04/03/23 Physical Therapist: ANURAG Bolaños Visit Plan Frequency: 2x /Week Duration: 4 Weeks Plan: 2X/ week for 4 weeks for R hip piriformis stretching, IT band stretching, hip ext and hip rotator strength, Core stability for SI, US, MT and possible try needling, with HEP HEP: knee to opp shoulder piriformis stretch and green strap IT band stretch in supine stretch on the R. Subjective Subjective: 2008 and 2009 glut tendon repair and got an MRI to be sure. Her pain is both (the L is mad because the R is mad). She has a lose SI joint This time it started on the R throbbing pain on the R side. It settled on posterior trochanter. It is just now on the R glut. R lose SI joint. It bothers her when she lays on her L side. She has no N&T or back pain. She does a lot of hiking but stopped because hip ext bothers it. She can walk the dog on flat surface. Her SI was really good. She does a lot of myofascial and muscle energy [facility]...Dr Castillo. Pain R Glut pain: Pain Intensity (Out of 10): 3 L Glut pain: Pain Intensity (Out of 10): 2 R SI pain: Pain Intensity (Out of 10): 1 Objective Objective: Gait: Normal gait pattern LE MMT: R hip flex 29 and L hip flex 20 R knee ext 26 and 30 R knee flex 25 and 19 R hip ext 21 and L 14 R hip abd 17 and L 16 Full trunk AROM Pt is able to walk on heels and toes without weakness Palpation: VERY tender over R piriformis/glut med attachment as well as along the R side border of the sacrum Tight Piriformis on the R (knee to opp shoulder) and IT band on the R compared to the L Balance/Special Test Scores Lower Extremity Functional Score: 66 Goals Goal 1:: I HEP Goal Time Frame: 6-8 Weeks Goal 2:: Increase B hip ext strength (at the time of the eval: R hip ext 21 and L 14) Goal Time Frame: 6-8 Weeks Goal 3:: Be able to walk with longer strides without pain (pain with hip ext) Goal Time Frame: 6-8 Weeks Goal 4:: Increase R piriformis and IT band muscle length Goal Time Frame: 6-8 Weeks Goal 5:: Decrease pain by 50% Goal Time Frame: 6-8 Weeks Rehabilitation Potential Rehabilitation Potential: Good Anticipated Interventions Patient/Client Instruction: Educate patient on: Condition and Plan of Care For the Purpose of:: To decrease pain, To increase ROM, To improve nutrient delivery to tissue, To increase oxygenation perfusion, To improve muscle performance and motor function, To improve ability to perform ADL's, To improve performance and independence with ADL's, To improve gait and locomotor f unctions, To improve health of tissue, To decrease soft tissue restriction and To increase flexibility/ROM Therapeutic Exercise to Include: Strength training, Flexibilty training, Gait and locomotor training, Active ROM and Dynamic Lumbar Stabilization For the Purpose of:: To decrease pain, To increase ROM, To improve nutrient delivery to tissue, To improve muscle performance and motor function, To improve ability to perform ADL's, To increase tolerance to activity/condition/position, To improve performance and independence with ADL's, To decrease level of supervision to perform tasks, To improve ability of physical actions for home/community/work/leisure, To improve gait and locomotor functions, To improve health of tissue, To decrease soft tissue restriction and To increase flexibility/ROM Manual Therapy Techniques to Include: Passive ROM, Functional dry needling and Soft tissue mobilization For the Purpose of:: To decrease pain, To increase ROM, To improve nutrient delivery to tissue, To improve muscle performance and motor function, To improve ability to perform ADL's, To increase tolerance to activity/condition/position, To improve performance and independence with ADL's, To decrease level of supervision to perform tasks, To improve ability of physical actions for home/community/work/leisure, To improve gait and locomotor functions, To improve health of tissue, To decrease soft tissue restriction and To increase flexibility/ROM Cryotherapy (ice pack, ice massage): Yes Thermo therapy (hot pack): Yes Ultrasound (thermal/non thermal): Yes For the Purpose of:: To decrease pain, To decrease swelling/inflammation, To increase ROM, To improve nutrient delivery to tissue, To improve muscle performance and motor function and To improve ability to perform ADL's Text: Thank you for the opportunity to evaluate your patient. For Medicare and Medicare HMO plans, please review the plan of care and approve it. It will need to be FAXED BACK to us at [phone] for Medicare purposes. For Medicare only, by signing this I certify the plan of care. Please let me know if there are questions or concerns regarding this plan of care. Physician Signature: Date:
--- NOTE | 2023-05-08 09:13 | HP.PTREVAL ---
Re-Evaluation Intro: HIREN HYLTON, It has been my pleasure to treat HANNAH HU over the last 10 visits for Trochanteric bursitis. Please see the progress note below for an update on the physical therapy plan of care! Subjective Subjective: Overall she had a 2 week period for no pain but sore. But now it came back. She thinks that it was the high of the steroid still. She only goes back to the Dr if she feels like she needs too. She is Yoga and rock climbing but no hiking and no biking. The pain is not waking her up anymore. Objective Objective/Function: R hip ext 21 and L 18.3 Plan Plan Plan: 2X/ week for additional 3 weeks for R hip piriformis stretching, IT band stretching, hip ext and hip rotator strength, Core stability for SI, US, MT and possible try needling, with HEP Balance/Gait/Functional tests Balance/Special Test Scores Lower Extremity Functional Score: 72 Goals Goals Goal 1:: I HEP Goal Time Frame: 6-8 Weeks Goal Progress: Progressing Goal 2:: Increase B hip ext strength (at the time of the eval: R hip ext 21 and L 14) Goal Time Frame: 6-8 Weeks Goal Progress: Progressing Goal 3:: Be able to walk with longer strides without pain (pain with hip ext) Goal Time Frame: 6-8 Weeks Goal Progress: Progressing Goal 4:: Increase R piriformis and IT band muscle length Goal Time Frame: 6-8 Weeks Goal Progress: Progressing Goal 5:: Decrease pain by 50% Goal Time Frame: 6-8 Weeks Goal Progress: Goal Met Anticipated Interventions Anticipated Interventions Patient/Client Instruction: Educate patient on: Condition and Plan of Care For the Purpose of:: To decrease pain, To increase ROM, To improve nutrient delivery to tissue, To increase oxygenation perfusion, To improve muscle performance and motor function, To improve ability to perform ADL's, To improve performance and independence with ADL's, To improve gait and locomotor functions, To improve health of tissue, To decrease soft tissue restriction and To increase flexibility/ROM Therapeutic Exercise to Include: Strength training, Flexibilty training, Gait and locomotor training, Active ROM and Dynamic Lumbar Stabilization For the Purpose of:: To decrease pain, To increase ROM, To improve nutrient delivery to tissue, To improve muscle performance and motor function, To improve ability to perform ADL's, To increase tolerance to activity/condition/position, To improve performance and independence with ADL's, To decrease level of supervision to perform tasks, To improve ability of physical actions for home/community/work/leisure, To improve gait and locomotor functions, To improve health of tissue, To decrease soft tissue restriction and To increase flexibility/ROM Manual Therapy Techniques to Include: Passive ROM, Functional dry needling and Soft tissue mobilization For the Purpose of:: To decrease pain, To increase ROM, To improve nutrient delivery to tissue, To improve muscle performance and motor function, To improve ability to perform ADL's, To increase tolerance to activity/condition/position, To improve performance and independence with ADL's, To decrease level of supervision to perform tasks, To improve ability of physical actions for home/community/work/leisure, To improve gait and locomotor functions, To improve health of tissue, To decrease soft tissue restriction and To increase flexibility/ROM Cryotherapy (ice pack, ice massage): Yes Thermo therapy (hot pack): Yes Ultrasound (thermal/non thermal): Yes For the Purpose of:: To decrease pain, To decrease swelling/inflammation, To increase ROM, To improve nutrient delivery to tissue, To improve muscle performance and motor function and To improve ability to perform ADL's Re-Evaluation Ending Re-evaluation ending: Please do not hesitate to contact me at [phone] by phone or if you have questions or concerns regarding this new plan of care! Sincerely, ANURAG Bolaños
--- NOTE | 2023-06-11 09:07 | HP.PTDCSUM ---
Discharge Summary D/C summary: It has been my pleasure to treat HANNAH HU referred by HIREN HYLTON, with the diagnosis of Trochanteric bursitis for a total of 19 visit(s). Discharge Date: 06/11/23 Please see the following information for a summary of their discharge status. Subjective Subjective: Pt reports that she is better. Her Raynaud's is bad today. After last Sunday she had no pain for numerous days. She tried hiking again yesterday and longer strides still bothered her for 45 min. Pain R Glut pain: Pain Intensity (Out of 10): 0 L Glut pain: Pain Intensity (Out of 10): 0 R SI pain: Pain Intensity (Out of 10): 0 R IT band: Pain Intensity (Out of 10): 0 Overall Improvement % Improvement: 85 Objective Objective/Function: R hip ext 21 and L 18.5 Goals Goal 1:: I HEP Goal Progress: Goal Met Goal 2:: Increase B hip ext strength (at the time of the eval: R hip ext 21 and L 14) Goal Progress: Goal Met Goal 3:: Be able to walk with longer strides without pain (pain with hip ext) Goal Progress: Progressing Goal 4:: Increase R piriformis and IT band muscle length Goal Progress: Progressing Goal 5:: Decrease pain by 50% Goal Progress: Goal Met Plan Plan: 2X/ week for additional 3 weeks for R hip piriformis stretching, IT band stretching, hip ext and hip rotator strength, Core stability for SI, US, MT and possible try needling, with HEP D/C Information Discharge Comments: Discharge d/c sentence: If there are questions or concerns regarding this patient's physical therapy, please feel free to call me at [phone]. Thank you for the referral of this patient. Sincerely, Letty Long, MPT Balance/Gait/Functional tests Balance/Special Test Scores Lower Extremity Functional Score: 77 Improvement % Improvement: 85
== END 2023-06-11 13:48 | disposition home or self-care (01) ==
LOC: PT 08:30
PROVIDERS: PCP Internal Medicine
DX: M70.61 Trochanteric bursitis, right hip (principal)
CPT/HCPCS: 97110; 97161; 97530

== ENCOUNTER → 2023-07-30 | Outpatient (CLI) | payer OTHER, SELFPAY ==
[2023-08-03 19:07] LABS: HPV APTIMA, High Risk Negative (Negative)
== END | disposition home or self-care (01) ==
PROVIDERS: PCP Internal Medicine; Referring Provider Obstetrics & Gynecology; Visit Provider Obstetrics & Gynecology
DX: Z12.4 Encounter for screening for malignant neoplasm of cervix (principal)
CPT/HCPCS: 87624; 88175; G0145

== ENCOUNTER → 2023-08-15 | Outpatient (CLI) | payer OTHER, SELFPAY ==
--- NOTE | 2023-08-15 07:35 | BI_ITS ---
MAMMOGRAPHY - BILATERAL SCREENING 3-D TOMOSYNTHESIS REASON FOR EXAM: Female, 52 years old. screening mammogram PERTINENT HISTORY: No significant family history. TECHNIQUE: 2-D mammograms and 3-D Tomosynthesis of the breast (s) were performed. CAD was performed. COMPARISON: 08/03/2022 FINDINGS: The breast composition is heterogeneously dense that can obscure small breast masses. Scattered benign calcifications are seen. No dense spiculated masses or suspicious microcalcifications are identified. No architectural distortion is identified. There is no skin thickening or retraction. There has been no significant change since the prior study. BI/SCRN MAMM (CAD)W/EUGENE BILAT IMPRESSION: No mammographic signs of malignancy. Routine yearly mammograms recommended. ASSESSMENT CATEGORY: BIRADS Category 1: Negative. A letter regarding these results will be sent to the patient by the facility within 30 days. FOLLOW UP RECOMMENDATION: Yearly follow up mammogram recommended. (A) Approximately 10% of breast cancers are not detected by mammography. A normal mammogram should not delay biopsy of a clinically suspicious abnormality. Electronically Signed: Judah Alvarez MD at 9:50 EDT ,
--- NOTE | 2023-08-15 07:35 | US_ITS ---
EXAM: US PELVIS TRANSABDOMINAL AND TRANSVAGINAL, COMPLETE CLINICAL INDICATION: postmenopausal bleeding TECHNIQUE: Transabdominal and endovaginal pelvic ultrasound was performed with grayscale and color Doppler imaging. Endovaginal imaging was used for better evaluation of the endometrium and adnexa. COMPARISON: US Pelvis Transabdominal Endovaginal dated 03/29/2012 FINDINGS: UTERUS/CERVIX: Uterus measures 7.7 x 5.5 x 3.8 cm. Endometrial thickness is 4 mm. No discrete evidence of uterine mass. Small amount of fluid distends the endocervical canal. An endocervical polyp difficult to exclude. RIGHT OVARY: Surgically absent. LEFT OVARY: Non-enlarged, normal echogenicity. No findings to suggest ovarian torsion. FREE FLUID: Physiological amount of free fluid noted within the pelvis. US/Pelvic w/ Transvaginal IMPRESSION: Normal endometrium. Question of endocervical polyp. Gynecological follow up recommended. Electronically Signed: Ahsan Interiano MD at 15:09 EDT ,
== END | disposition home or self-care (01) ==
PROVIDERS: PCP Internal Medicine; Referring Provider Obstetrics & Gynecology; Visit Provider Obstetrics & Gynecology
DX: Z12.31 Encounter for screening mammogram for malignant neoplasm of breast (principal); N95.0 Postmenopausal bleeding
CPT/HCPCS: 76830; 76856; 77063; 77067

== ENCOUNTER 2023-11-06 06:01 | Day surgery (SDC) | payer OTHER, SELFPAY ==
[2023-11-06] VITALS (8 sets, daily range): BP systolic 101–108; BP diastolic 57–72; PULSE 58–73; RESP 16–20; TEMP 36.4–36.8; O2SAT 95–99; BMI 22.1
--- NOTE | 2023-11-06 | EMB_PTH ---
PATIENT: HANNAH RITTERCCJuly #:[id number] [place] [facility] [id number] AGE/SX: 53/F ROOM: RE11/06/[address]: Dr. Natalya Schaffer DO : 1970 BED: DIS: 11/06/2023 SPEC #: [id number] RECD: 11/06/23 12:21 STATUS: ASAEL KRISHNAMURTHYLiat #: [id number] MARYJO: 11/06/23 00:[address]: Natalya Schaffer DEPT: SURGICAL PATHOLOGY RECD BY: Miguelito Khoury ENTERED: 11/06/23 12:21 SP TYPE: ENDOM BX/C OTHR DR: Dr. Alejandro Hamilton MD Tissues: Endometrium, NOS Procedures: Surgery Specimen Level IV HEADER OPERATION: Hysteroscopy, D&C, polypectomy PRE-OP DIAGNOSIS: Polyp of cervix uteri, post menopausal bleed TISSUE SUBMITTED: Endometrial curettings MICROSCOPIC DIAGNOSIS Endometrial curettings: Proliferative endometrium with glandular and stromal breakdown. Fragments of benign ectocervical and endocervical mucosa and mucous. Fragments of myometrium. NOREEN/ 11/07/2023 MICROSCOPIC DESCRIPTION Slides are reviewed. GROSS DESCRIPTION Received in fixative is one container labeled with the patient's name and designated Endometrial curettings. The specimen consists of multiple irregular fragments of pedro-pink soft tissue mixed with mucoid tissue that in aggregate measure 5.0 x 3.0 x 0.2 cm. The specimen is totally submitted in two cassettes. NOREEN/ 11/06/2023 TC:5 CPT:46459
[2023-11-06] MEDS: Lactated Ringers 1,000 ML 15 ML IV (06:48)
[2023-11-06 07:03] LABS: Hematocrit 38.5 % (37-47); Hemoglobin 12.8 g/dL (12.0-15.0); Mean Corp Hgb Conc 33.2 g/dL (32-36); Mean Corpuscular Hgb 32.2 pg (27.0-32.0); Mean Corpuscular Volume 96.7 fL (81-99); Mean Platelet Vol. 10.4 fl (6.2-12.0); Platelet Count 270 K/mm3 (150-450); RBC Distribution Width SD 46.6 fl (35.1-43.9); Red Blood Count 3.98 M/mm3 (4.2-5.4); White Blood Count 4.9 K/mm3 (4.4-11.0)
--- NOTE | 2023-11-06 07:13 | HP.PCM_ITS ---
History and Physical Date of Admission: 11/06/23 Vital Signs 07/29/2410:59 10/28/2414:38 10/28/2414:40 Height 5 ft 11 in 5 ft 11 in 5 ft 11 in Weight: 159 lb 2 oz 160 lb BMI 22.1 22.3 BP 110/72 126/84 H Intake Visit Reasons: D&C polypectomy Litigation Legal Secretary Required: No Is patient in pain?: No Allergies naproxen sodium (From Aleve) Allergy (Severe, Verified 10/29/23 15:38) HivesPenicillins (PCN) Allergy (Unknown, Verified 10/29/23 15:38) Unknownmidodrine Allergy (Verified 10/29/23 15:38) RashSulfa (Sulfonamide Antibiotics) Adverse Reaction (Severe, Verified 10/29/23 15:38) Other Medications ?Medication ?Instructions ?Recorded ?Confirmed ?Type multivitamin,zv-cntl-nxtzdqxd 27 1 tab PO DAILY 01/29/17 10/29/23 History mg-0.4 mg tablet krill 1,000 mg-omega-3 170 mg-dha 1 cap PO BID 04/19/17 10/29/23 History 50 mg-epa 80 mo-xlqhhk-cynaz capsule (krill oil) cholecalciferol (vitamin D3) 125 5,000 unit PO DAILY 04/03/19 10/29/23 History mcg (5,000 unit) disintegrating tablet magnesium 30 mg tablet 30 mg PO DAILY 04/15/20 10/29/23 History melatonin 10 mg capsule 5 mg PO HS 04/15/20 10/29/23 History gabapentin 300 mg capsule 300 mg PO QHS #90 caps 11/01/22 10/29/23 Rx medroxyprogesterone 2.5 mg tablet 2.5 mg PO DAILY #90 tabs 11/01/22 10/29/23 Rx estradiol 0.05 mg/24 hr semiweekly 1 patch transdermal 2XW #24 ea 07/30/23 10/29/23 Rx transdermal patch (Vivelle-Dot) Post menopausal: No Patient : No : No PFSH Medical History Wears contact lenses Post-menopausal Open wound Non-smoker History of stress test History of echocardiogram Cardiology follow-up encounter PONV (postoperative nausea and vomiting) Tinnitus Preventative health care Dermatitis Cellulitis Menopausal hot flushes Anxiety SIBO Gastroenteritis IBS (irritable bowel syndrome) Goiter POTS (postural orthostatic tachycardia syndrome) Surgical History History of thyroid surgery hemangeoma left elbow Mucinous cystadenoma of right ovary Tendinopathy of right gluteal region Tendinopathy of left gluteus medius History of arthroscopy of left knee History of section History of tonsillectomy History of appendectomy left knee scope hemangeoma left elbow Right Mucinous Cystadenoma left glute medius tenson repair right glute medius tendon repair left knee scope History of History of tonsillectomy History of appendectomy Family History Mother Heart disease HypertensionFather Hypertension Arthritis Anxiety HyperlipemiaGrandfather Myocardial infarction, Onset Age: 60Aunt Myocardial infarction, Onset Age: 75 CLL (chronic lymphocytic leukemia) Social History household members: spouse and children Smoking Status: Never smoker alcohol intake: current alcohol intake frequency: holidays/special occasions only substance use type: does not use caffeine: Yes what type of physical activity do you participate in: walking, yoga and aerobics frequency: 5-6 times per week HPI D&C polypectomy Details: HANNAH HU is a 52 year old who presents for a pre-op hysteroscopy d&c polypectomy for cervical polyp. She has started to experience withdrawal bleeding from the progesterone recently when she went on her 1 week break. Plan is to do the D&C first then re-evaluate after surgery about hormone changes causing some of the bleeding. ROS Const ROS Unobtainable: All systems reviewed & are unremarkable except as noted in H Resp Resp: Reports system reviewed and no additional complaints, except as documented; Denies cough GI GI: Reports as per HPI Psych Psych: Reports system reviewed and no additional complaints, except as documented Exam Const General: cooperative, healthy appearing, comfortable and no acute distress Resp Effort & Inspection: normal respiratory effort Skin General: no rashes or lesions noted Psych Appearance: grossly normal Speech and Movement: speech and movement normal Coding Level of Care Code Off vis,est,level 4 Diagnoses Polyp of cervix uteri N84.1 Postmenopausal bleeding N95.0 Female climacteric state N95.1 Assessment and Plan Assessment and Plan (1) Polyp of cervix uteri: Status: Acute (2) Postmenopausal bleeding: Status: Acute (3) Female climacteric state: Status: Acute Plan After discussing the patient's diagnosis and treatment plan options, patient wishes to proceed with surgical management. I have discussed with the patient the risks, benefits, and alternatives of the procedure which include but are not limited to risks of anesthesia, bleeding, infection, possible damage to bowel, bladder, or surrounding vasculature which could lead to additional surgery to evaluate any complications. Patient agrees to procedure and wishes to proceed. ACOG/uptodate references given for additional information regarding procedure. plan for hysteroscopy D&C polypectomy.
--- NOTE | 2023-11-06 07:13 | PCM.DC ---
Discharge Instructions Diet Discharge Diet: No restrictions Activity Discharge Activity: Return to Normal Activity, May Shower and May Take a Tub Bath (after 1 week) May resume sexual activity in: 1-2 weeks Weight Bearing Status: Weight bearing as tolerated Lifting Restrictions: none Additional Activity Instructions:: take 800 mg of ibuprofen every 8 hours as needed for pain and cramping. Dressing / Incision Call your doctor if you observe: Fever of 101 or Higher, Using more than 1 pad per hour, Shortness of breath and Uncontrolled pain Follow Up Care Please Follow Up With: Natalya Schaffer, When: Call [phone] to schedule appointment. Test Results: Test results from this visit will be discussed in further detail at your follow-up appointment, if applicable. Discharge Plan Admission Attending Provider: Natalya Schaffer Primary Care Provider: Alejandro Hamilton Instructions Print Language: Albanian Discharge Orders/Prescriptions Prescriptions: No Action grqtg-pr-2-lcu-iok-uiwyfha-ast [krill oil] [id number] mg capsule 1 cap PO BID melatonin 10 mg capsule 5 mg PO HS cholecalciferol (vitamin D3) 5,000 unit tablet,disintegrating 5,000 unit PO DAILY magnesium 30 mg tablet 30 mg PO DAILY medroxyprogesterone 2.5 mg tablet 2.5 mg PO DAILY Qty: 90 4RF gabapentin 300 mg capsule 300 mg PO QHS Qty: 90 4RF estradiol [Vivelle-Dot] 0.05 mg/24 hr patch semiweekly 1 patch transdermal 2XW Qty: 24 4RF Rx Instructions: apply 1 patch for 3 days alternating with 1 patch for 4 days each week for 3 wks per 4-wk cycle multivitamin,yu-qres-ebymlrwk 1 TABLET tablet 1 tab PO DAILY Referrals / Follow Up: Alejandro Hamilton MD [Primary Care Provider] - Disposition Disposition (needs filled in before D/C Order can be placed): Home, Self Care
--- NOTE | 2023-11-06 07:22 | PCM.PRE.AN2 ---
ASA Classification* ASA Classification ASA Classification: 2 Assessment & Plan Anesthesia* Anesthesia Assessment Anesthesia Assessment: Discussed sedation and/or anesthesia options, risks, benefits, and alternatives with patient/parents/legal guardian/POA. Questions invited. The patient/parents/legal guardian/POA seems to understand and agrees to proceed with anesthesia plan. Reviewed the physical assessment, medical history, allergy history and patient home medications list prior to surgery/procedure/anesthetic and documented any changes. Performed airway and anesthesia risk assessments. Anesthesia Type Anesthesia Type: MAC (see written pre anesthesia record for full assessment) Anesthesia Focused Assessment* Temperature: 97.8 F Pulse Rate: 58 Blood Pressure: 101/57 Respiratory Rate: 18 Pulse Ox: 99 Airway Assessment Mouth opens: >3 cm Mallampati Score: II Focused Labs Anesthesia Preop lab: CBC WBC 4.9 K/mm3 (4.4-11.0) 11/06/23 06:45 RBC 3.98 M/mm3 (4.2-5.4) L 11/06/23 06:45 Hgb 12.8 g/dL (12.0-15.0) 11/06/23 06:45 Hct 38.5 % (37-47) 11/06/23 06:45 Plt Count 270 K/mm3 (150-450) 11/06/23 06:45 CHEMISTRY Potassium 4.3 mmol/L (3.5-5.1) 10/23/22 14:36 Sodium 138 mmol/L (136-145) 10/23/22 14:36 BUN 12 mg/dL (7-18) 10/23/22 14:36 Creatinine 0.96 mg/dL (0.55-1.02) 10/23/22 14:36 Glucose 105 mg/dL (74-106) 10/23/22 14:36 TSH 0.63 uIU/mL (0.358-3.74) 10/23/22 14:36 COAG Pre-Assessment Diagnosis/Proposed Procedure Planned Operative Procedure(s): Hysteroscopy,Dilation and Curettage, Polypectomy Anesthesia History 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 When Was Last Pacemaker Check QUESTION #4 FULL TEXT: You/Your Family Experience fever (hyperthermia) with Anesthesia Last Oral Intake Last Oral intake: Last Oral Intake NPO since 20:30 11/06/23 06:32 Meds taken in AM with sips of No 11/06/23 06:32 water? Meds patient instructed to take am of surgery PONV PONV - sterile instrument technician: PONV - sterile instrument technician Female Yes 10/26/23 08:56 HX of Motion Sickness Yes 10/26/23 08:56 HX of N/V After Surgery Yes 10/26/23 08:56 Non-Smoker Yes 10/26/23 08:56 Duration of Surgery greater No 10/26/23 08:56 than 60 minutes Number of Risk Factors 4 10/26/23 08:56 PONV Score Severe Risk 10/26/23 08:56 Height & Weight Height & Weight: Anesthesia: Height & Weight Height 5 ft 11 in 11/06/23 06:32 Weight: 72.121 kg 11/06/23 06:32 Body Mass Index (BMI) 22.1 11/06/23 06:32 Respiratory Assessment Respiratory Assessment - sterile instrument technician: Respiratory Tract Infection Hx - sterile instrument technician Hx Respiratory Tract Infection No 10/26/23 08:56 STOP Sleep Apnea STOP Sleep Apnea - sterile instrument technician: STOP Sleep Apnea - sterile instrument technician Hx Hypertension No 10/26/23 08:56 Hx Sleep Apnea No 10/26/23 08:56 CPAP BIPAP Do you snore loudly (louder No 10/26/23 08:56 than talking or can be heard Do you often feel tired/ No 10/26/23 08:56 fatigued/ sleepy during daytime? Has anyone observed you stop No 10/26/23 08:56 breathing during sleep? STOP Results Negative 10/26/23 08:56 QUESTION #5 FULL TEXT : Do you snore loudly (louder than talking or can be heard through closed doors)? Tobacco Use History Tobacco Use History - sterile instrument technician: Tobacco Use History - sterile instrument technician Tobacco Use Smoking Status Never smoker 10/26/23 08:56 Hx Tobacco Use No 10/26/23 08:56 Years Smoking Packs Smoked per Day Smoking Cessation Date was within the last 15 years Hx Smoking Cessation Date Hx Smoking Cessation Counseling Hematologic Medial History Hematologic Hx - sterile instrument technician: Hematologic Medical Hx - dampener Hx of Blood Transfusion No 10/26/23 08:56 Hx of Transfusion in last 3 No 10/26/23 08:56 Months Date of Last Transfusion (if within last 3 months) Ever experience any problems No 10/26/23 08:56 with transfusion(s)? Specify any problems Hx of Preganancy in last 3 N/A 10/26/23 08:56 Months Nurse Filling Out Transfusion NBUCHER 10/26/23 08:56 & Questions: Date: 10/26/23 10/26/23 08:56 Time: 08:58 10/26/23 08:56 Patient unable to answer at this time (ie. confused, unrespo /Reproduction History /Reproductive History - sterile instrument technician: /Reproductive Hx- sterile instrument technician Hx Now No 10/26/23 08:56 Gestational Age (in weeks): EDC: Hx Hx Para Hx Section SAB No 10/29/23 15:40 Active Medications Active Medications: Current Medications Generic Name Dose Route Start Last Admin Trade Name Freq PRN Reason Stop Dose Admin Lactated Ringer's 1,000 mls @ 15 mls/hr 11/06/23 06:15 11/06/23 06:48 IV 15 mls/hr .Q48H ALEJA Administration PFSH Medical History Wears contact lenses Post-menopausal Open wound Non-smoker History of stress test History of echocardiogram Cardiology follow-up encounter PONV (postoperative nausea and vomiting) Tinnitus Preventative health care Dermatitis Cellulitis Menopausal hot flushes Anxiety SIBO Gastroenteritis IBS (irritable bowel syndrome) Goiter POTS (postural orthostatic tachycardia syndrome) Home Medications ?Medication ?Instructions ?Recorded ?Last Taken ?Type multivitamin,to-pshc-uzqnpfnp 27 1 tab PO DAILY 01/29/17 11/05/23 History mg-0.4 mg tablet krill 1,000 mg-omega-3 170 mg-dha 1 cap PO BID 04/19/17 11/05/23 History 50 mg-epa 80 pw-nezmef-edihu capsule (krill oil) cholecalciferol (vitamin D3) 125 5,000 unit PO DAILY 04/03/19 11/05/23 History mcg (5,000 unit) disintegrating tablet magnesium 30 mg tablet 30 mg PO DAILY 04/15/20 11/05/23 History melatonin 10 mg capsule 5 mg PO HS 04/15/20 11/05/23 History gabapentin 300 mg capsule 300 mg PO QHS #90 caps 11/01/22 11/05/23 Rx medroxyprogesterone 2.5 mg tablet 2.5 mg PO DAILY #90 tabs 11/01/22 11/05/23 Rx estradiol 0.05 mg/24 hr semiweekly 1 patch transdermal 2XW #24 ea 07/30/23 11/04/23 Rx transdermal patch (Vivelle-Dot) Allergy/AdvReac Type Severity Reaction Status Date / Time naproxen sodium (From Aleve) Allergy Severe Hives Verified 11/06/23 06:28 Penicillins (PCN) Allergy Unknown Unknown Verified 11/06/23 06:28 midodrine Allergy Rash Verified 11/06/23 06:28 Sulfa (Sulfonamide AdvReac Severe Other Verified 11/06/23 06:28 Antibiotics) Family History Mother Heart disease Hypertension Father Hypertension Arthritis Anxiety Hyperlipemia Grandfather Myocardial infarction, Onset Age: 60 Aunt Myocardial infarction, Onset Age: 75 CLL (chronic lymphocytic leukemia) Surgical History History of thyroid surgery hemangeoma left elbow Mucinous cystadenoma of right ovary Tendinopathy of right gluteal region Tendinopathy of left gluteus medius History of arthroscopy of left knee History of section History of tonsillectomy History of appendectomy left knee scope hemangeoma left elbow Right Mucinous Cystadenoma left glute medius tenson repair right glute medius tendon repair left knee scope History of History of tonsillectomy History of appendectomy Social History household members: spouse and children Smoking Status: Never smoker alcohol intake: current alcohol intake frequency: holidays/special occasions only substance use type: does not use caffeine: Yes what type of physical activity do you participate in: walking, yoga and aerobics frequency: 5-6 times per week Review of Systems (Anesthesia) ROS Narrative System reviewed and no additional complaints, except as documented.
[2023-11-06] MEDS: Lidocaine 1% (20 ml mdv) 20 ML Vial (07:51)
--- NOTE | 2023-11-06 08:06 | OP.PCM_ITS ---
Problems Associated Problem List Diagnoses (1) Polyp of cervix uteri: (2) Postmenopausal bleeding: Report of Operation Date of Procedure: 11/06/23 Pre-Operative Diagnosis: perimenopausal bleeding, ultrasound finding of polyp of cervix Post-Operative Diagnosis: perimenopausal bleeding, ultrasound finding of polyp of cervix Surgery/Procedure Performed:: hysteroscopy, symphion D&C/polypectomy Description of Surgical Findings:: small cervical polyp like structures visualized. fluid deficit 600cc Surgeon: Natalya Schaffer consulting psychologist: None Type of Anesthesia: MAC and Topical Anesth Anesthesiologist: Dank Ely Specimen's removed: endometrial curettings Estimated Blood Loss (mL): 5cc Description of Procedure: Patient was prepped and draped in a normal sterile fashion under MAC anesthesia. A weighted speculum was placed in the vagina and the anterior lip of the cervix was grasped with a single-tooth tenaculum. A paracervical block was placed with 1% lidocaine. Cervix was progressively dilated to allow passage of a 5 mm reseccting hysteroscope. The lining was fully visualized and noted to have polyp like stuctures in the cervix . The uterus sounded to 8 cm. Curettage was performed using the symphion. The device was pulled back into the cervix and polyp like structures were removed using the symphion. A sharp curettage was also performed, removing scan tissue. All specimens were sent to pathology. All instruments were removed from the vagina and excellent hemostasis was noted. Patient was awoken and taken to recovery in stable condition. Procedure Start Time: 07:47 Procedure Stop Time: 07:57 Complications none Admit VTE Documentation VTE Present on Admission: No VTE Mechan Device Prophylaxis: SCD's VTE Pharm Prophylaxis ordered?: No Multi Select Codes Urinary/Genital Urinary/Genital CPT Codes: 27214 Hysteroscopy,EMC, Polypectomy
--- NOTE | 2023-11-06 08:06 | PCM.POST.ANE ---
Anesthesia: Postop Eval I Current Vital Signs Temperature: 98.2 F Pulse Rate: 72 Blood Pressure: 106/59 Respiratory Rate: 20 Pulse Ox: 95 Oxygen Delivery Method: Room Air Assessment Airway patent: Yes Spontaneous unlabored respirations: Yes Mental status: Awake and Calm nausea: No Vomiting: No Anesthesia Complication: No Fluid Hydration Crystalloid volume administer (ml): 500 Total IV fluid infused: 500 Progress Note Anesthesia document: Postop Eval 1 completed: Yes
--- NOTE | 2023-11-06 08:53 | POSTOPAN2_ITS ---
Anesthesia Postop Eval I Sum Postop Eval Completion status Anesthesia document: Postop Eval 1 completed: Yes Anesthesia Postop Eval I Summary Anesthesia Postop Eval I Summary: Anesthesia Postop Eval I: Assessment Summary Airway patent Yes 11/06/23 08:07 [email or web address] Spontaneous unlabored Yes 11/06/23 08:07 [email or web address] [email or web address] respirations Mental status Awake,Calm 11/06/23 08:07 [email or web address] nausea No 11/06/23 08:07 [email or web address] Vomiting No 11/06/23 08:07 [email or web address] [email or web address] Anesthesia Postop Eval I: Fluid Summary Crystalloid volume administer 500 11/06/23 08:07 [email or web address] (ml) Colloids volume administered ( ml) Blood Product volume administered (ml) Total IV fluid infused 500 11/06/23 08:07 [email or web address] Anesthesia Postop Eval I: Summary Notes Anesthesia Complication No 11/06/23 08:07 [email or web address] Anesthesia Complication Comment: Post-operative progress note Anesthesia: Postop Eval II Evaluation Mental status: Awake Pain Level: 0 nausea: No Vomiting: No
--- NOTE | 2023-11-06 08:53 | PCM.POSTANE2 ---
Anesthesia Postop Eval I Sum Postop Eval Completion status Anesthesia document: Postop Eval 1 completed: Yes Anesthesia Postop Eval I Summary Anesthesia Postop Eval I Summary: Anesthesia Postop Eval I: Assessment Summary Airway patent Yes 11/06/23 08:07 [email or web address] Spontaneous unlabored Yes 11/06/23 08:07 [email or web address] respirations Mental status Awake,Calm 11/06/23 08:07 [email or web address] nausea No 11/06/23 08:07 [email or web address] Vomiting No 11/06/23 08:07 [email or web address] Anesthesia Postop Eval I: Fluid Summary Crystalloid volume administer 500 11/06/23 08:07 [email or web address] (ml) Colloids volume administered ( ml) Blood Product volume administered (ml) Total IV fluid infused 500 11/06/23 08:07 [email or web address] Anesthesia Postop Eval I: Summary Notes Anesthesia Complication No 11/06/23 08:07 [email or web address] Anesthesia Complication Comment: Post-operative progress note Anesthesia: Postop Eval II Evaluation Mental status: Awake Pain Level: 0 nausea: No Vomiting: No
== END 2023-11-06 09:16 | disposition home or self-care (01) ==
LOC: SDC 06:02 → AC 06:03
PROVIDERS: PCP Internal Medicine; Referring Provider Obstetrics & Gynecology; Visit Provider Obstetrics & Gynecology
PROC: 0UB98ZZ Excision of Uterus, Via Natural or Artificial Opening Endoscopic (ICD-10-PCS; CPT 58558; principal; 2023-11-06 07:15)
DX: N84.1 Polyp of cervix uteri (principal); N95.0 Postmenopausal bleeding; N95.1 Menopausal and female climacteric states; Z79.899 Other long term (current) drug therapy
CPT/HCPCS: 58558; 00952; 85027; 86850; 86900; 86901; 88305; J7120; J2405

== ENCOUNTER → 2024-06-25 | Outpatient (CLI) | payer OTHER, SELFPAY ==
--- NOTE | 2024-06-25 08:54 | US_ITS ---
EXAM: DIAG MAMM W/CAD, BILAT; BREAST LIMITED UNILATERAL; BILAT BRST [place] STAND ALONE 06/25/2024 CLINICAL HISTORY: F, Age 53 y/o , LEFT AXILLARY PAIN; LEXT AXILLARY PAIN; PAIN TECHNIQUE: Bilateral Diagnostic digital breast tomosynthesis with 2D and 3D images. Computer aided detection. Also, targeted left breast ultrasound was performed. COMPARISON: Prior exam(s) dated 08/15/2023, 08/03/2022. FINDINGS: MAMMOGRAM: TISSUE DENSITY: The breast tissue is heterogenously dense, which may obscure small masses. The mammogram demonstrates that the patient has dense breasts. Supplemental screening with whole breast ultrasound or MRI may be considered for further evaluation. Bilateral Breast Mammographic Findings: The patient presents with left axillary in the upper outer quadrant breast pain. On the present examination, there are no mammographic abnormalities in the upper-outer left breast and left axilla to account for the patient's pain. Otherwise, there are no suspicious masses, grouped calcifications or architectural distortions in either breast. ULTRASOUND: Targeted ultrasound performed of the left upper outer quadrant and left axilla demonstrate no suspicious sonographic findings. US/Breast Limited Unilateral IMPRESSION: 1. There are no suspicious mammographic or sonographic findings in the area of patient's reported pain in the left breast and left axilla. Clinical management is recommended for the pain. 2. There is no evidence of malignancy in either breast. Right Breast: BIRADS 1 NEGATIVE. Left Breast: BIRADS 1 NEGATIVE. OVERALL FINAL ASSESSMENT: BIRADS 1 NEGATIVE. RECOMMENDATION: Routine annual follow-up in 1 Year A letter with findings and recommendations will be mailed to the patient. Reading Location: [id number]
--- NOTE | 2024-06-25 09:11 | BI_ITS ---
EXAM: DIAG MAMM W/CAD, BILAT; BREAST LIMITED UNILATERAL; BILAT BRST [place] STAND ALONE 06/25/2024 CLINICAL HISTORY: F, Age 53 y/o , LEFT AXILLARY PAIN; LEXT AXILLARY PAIN; PAIN TECHNIQUE: Bilateral Diagnostic digital breast tomosynthesis with 2D and 3D images. Computer aided detection. Also, targeted left breast ultrasound was performed. COMPARISON: Prior exam(s) dated 08/15/2023, 08/03/2022. FINDINGS: MAMMOGRAM: TISSUE DENSITY: The breast tissue is heterogenously dense, which may obscure small masses. The mammogram demonstrates that the patient has dense breasts. Supplemental screening with whole breast ultrasound or MRI may be considered for further evaluation. Bilateral Breast Mammographic Findings: The patient presents with left axillary in the upper outer quadrant breast pain. On the present examination, there are no mammographic abnormalities in the upper-outer left breast and left axilla to account for the patient's pain. Otherwise, there are no suspicious masses, grouped calcifications or architectural distortions in either breast. ULTRASOUND: Targeted ultrasound performed of the left upper outer quadrant and left axilla demonstrate no suspicious sonographic findings. BI/Bilat Brst [place] Stand Alone IMPRESSION: 1. There are no suspicious mammographic or sonographic findings in the area of patient's reported pain in the left breast and left axilla. Clinical management is recommended for the pain. 2. There is no evidence of malignancy in either breast. Right Breast: BIRADS 1 NEGATIVE. Left Breast: BIRADS 1 NEGATIVE. OVERALL FINAL ASSESSMENT: BIRADS 1 NEGATIVE. RECOMMENDATION: Routine annual follow-up in 1 Year A letter with findings and recommendations will be mailed to the patient. Reading Location: [id number]
== END | disposition home or self-care (01) ==
LOC: OPBI 08:52
PROVIDERS: PCP Internal Medicine; Referring Provider Internal Medicine; Visit Provider Internal Medicine
DX: M79.622 Pain in left upper arm (principal)
CPT/HCPCS: 76642; 77062; 77066; G0279

== ENCOUNTER → 2024-09-10 | Outpatient (CLI) | payer OTHER, SELFPAY ==
--- NOTE | 2024-09-10 06:54 | EKG12_ITS ---
Test Reason : PREOP Blood Pressure : */* mmHG Vent. Rate : 67 BPM Atrial Rate : 67 BPM P-R Int : 126 ms QRS Dur : 84 ms QT Int : 398 ms P-R-T Axes : 74 87 65 degrees QTcB Int : 420 ms Normal sinus rhythm Normal ECG Confirmed by ABRIL MULTANI, SAYRA ([id number]), city editor BRYAN MORENO ([id number]) on 09/10/2024 12:45:22 PM Referred By: Fili Johnson Confirmed By: SAYRA SAMUELS MD
--- OUTSIDE RECORDS SUMMARY | 2024-09-10 06:59 | XMS RPT_ITS | CCD ---
Author Organization [facility] Care Team Providers Care Edger Runner Name Role Phone ROSAMARIA SU Unavailable Unavailable IMCA Unavailable Unavailable IMCA Unavailable Unavailable HORATTAS ROSAMARIA C Unavailable Unavailable IMCA Unavailable Unavailable IMCA Unavailable Unavailable HORATTAS, ROSAMARIA C Unavailable Unavailable HORATTAS, ROSAMARIA C Unavailable Unavailable HORATTAS, ROSAMARIA C Unavailable Unavailable IMCA Unavailable Unavailable IMCA Unavailable Unavailable HORATTAS, ROSAMARIA C Unavailable Unavailable IMCA Unavailable Unavailable HORATTAS, ROSAMARIA C Unavailable Unavailable IVELISSESARAH S Unavailable Unavailable IVELISSESARAH CORREA Unavailable Unavailable PB ZEPEDA Referring Unavailable Ama Hamilton MD Primary Care Provider 1(3 30) Estefany Prado MD Unavailable Tacho Del Castillo DO Unavailable [phone] Dr. Ama Cha Primary Care Provider [phone]) Dr. mAa Hamilton Referring Provider [phone] KHALIDA Irving Attending Provider UnavailAma Gaspar MD Primary Care Provider 1(3 30) Estefany Prado MD Unavailable Tacho Del Castillo DO Unavailable [phone] Ama Cha MD Primary Care Provider [phone] Dr. Ama Hamilton Primary Care Provider [phone] Dr. Ama Hamilton Referring Provider [phone] KHALIDA Francisco Attending Provider [phone] KHALIDA Irving Attending Provider UnavailAma Gaspar MD Primary Care Provider 1(3 30) Eve MULTANI, Estefany Unavailable Tacho Del Castillo DO Unavailable Dr. Ama Hamilton Primary Care Provider [phone]) Joy, Dr. Allen Referring Provider [phone] KHALIDA Irving Attending Provider UnavailKHALIDA Snow Attending Provider [phone] Joy, Dr. Allen Attending Provider [phone] Dr. Ama Hamilton Primary Care Provider 1(33 0) Dr. Ama Hamilton Referring Provider [phone] Dr. Natalya Schaffer Attending Provider 1(3 30) Dr. Ama Hamilton Primary Care Provider 1(33 0) Dr. Ama Hamilton Referring Provider [phone] Dr. Ama Hamilton Attending Provider [phone] Dr. Ama Hamilton Primary Care Provider 1(33 0) Joy, Dr. Allen Attending Provider [phone] Dr. Ama Hamilton Referring Provider [phone] Ama Hamilton MD Primary Care Provider 1(3 30) Dr. Natalya Schaffer Attending Provider 1(3 30) EASTON PARKER Attending Unavailable AMA HAMILTON B Primary Care Unavailable ANTONIO VIVAR Referring Unavailable EASTON PARKER Attending Unavailable AMA HAMILTON Primary Care Unavailable SELF Referring Unavailable EASTON PARKER Referring Unavailable EASTON PARKER Attending Unavailable AMA HAMILTON B Primary Care Unavailable Joy MULTANI, Dr. Allen Primary Care Provider Dr. Ama Hamilton MD Referring Provider [phone]) Nico Francisco Attending Provider [phone] Ama Hamilton MD Attending Provider TANIKA ALVES Attending Unavailable OLEGHE, EFEWONGBE B Primary Care Unavailable TANIKA ALVES Attending Unavailable OLEGHE, EFEWONGBE B Primary Care Unavailable TANIKA ALVES Attending Unavailable OLEGHE, EFEWONGBE B Primary Care Unavailable TANIKA ALVES Attending Unavailable OLEGHE, EFEWONGBE B Primary Care Unavailable TANIKA ALVES Attending Unavailable OLEGHE, EFEWONGBE B Primary Care Unavailable TANIKA ALVES Attending Unavailable OLEGHE, EFEWONGBE B Primary Care Unavailable TANIKA ALVES Attending Unavailable OLEGHE, EFEWONGBE B Primary Care Unavailable TANIKA ALVES Attending Unavailable OLEGHE, EFEWONGBE B Primary Care Unavailable Natalya Schaffer Attending Unavailabl e Jennifere Natalya Aguero Referring Unavailabl e Oleghe, Efewongbe Primary Care Unavailable Oleghe, Efewongbe Attending Unavailable Oleghe, Efewongbe Referring Unavailable Oleghe, Efewongbe Primary Care Unavailable Fili Johnson Attending Unavailable Fili Johnson Referring Unavailable Oleghe, Efewongbe Primary Care Unavailable Oleghe, Efewongbe Primary Care Unavailable Oleghe, Efewongbe Referring Unavailable Natalya Schaffer Attending Unavailabl e Oleghe, Efewongbe Attending Unavailable Oleghe, Efewongbe Referring Unavailable Oleghe, Efewongbe Primary Care Unavailable Nico Francisco Attending Unavailable Oleghe, Efewongbe Referring Unavailable Oleghe, Efewongbe Primary Care Unavailable Natalya Schaffer Referring Unavailabl e Oleghe, Efewongbe Primary Care Unavailable Natalya Schaffer Consulting Unavailabl e Natalya Schaffer Attending Unavailabl e Oleghe, Efewongbe Referring Unavailable Oleghe, Efewongbe Primary Care Unavailable Natalya Schaffer Attending Unavailabl e OLEGHE, EFEWONGBE B Primary Care Unavailable SARAH WYNN Referring Unavailable OLEGHE, EFEWONGBE B Primary Care Unavailable SARAH WYNN Attending Unavailable SELF Referring Unavailable OLEGHE, EFEWONGBE B Primary Care Unavailable SARAH WYNN Referring Unavailable OLEGHE, EFEWONGBE B Primary Care Unavailable CESILIA ANTONIO Referring Unavailable OLEGHE, EFEWONGBE B Primary Care Unavailable OLEGHE, EFEWONGBE B Primary Care Unavailable SELF Referring Unavailable SARAH WYNN Referring Unavailable OLEGHE, EFEWONGBE B Primary Care Unavailable OLEGHE, EFEWONGBE B Primary Care Unavailable SARAH WYNN Referring Unavailable OLEGHE, EFEWONGBE B Primary Care Unavailable SARAH WYNN Attending Unavailable SARAH WYNN Attending Unavailable OLEGHE, EFEWONGBE B Primary Care Unavailable OLEGHE, EFEWONGBE B Primary Care Unavailable CLARISTIDES, ROSAMARIA Referring Unavailable Allergies Allergy Classification Reported Allergen(s) Allergy Type Date of Onset Reaction(s) Facility (20 sources) lactase; Translations: [LACTASE] Drug Allergy 02-28-20 13 Other: See Comments [facility] (20 sources) midodrine; Translations: [MIDODRINE] Drug Allergy 06-01-19 16 Rash [facility] (20 sources) naproxen; Translations: [NAPROXEN] Drug Allergy 02-28-20 13 [facility] (20 sources) Penicillins; Translations: [PENICILLINS] Propensity to adverse reactions (disorder) 02-28-20 13 Unknown [facility] (20 sources) sulfamethoxazole; Translations: [SULFAMETHOXAZOLE] Drug Allergy 02-28-20 13 Other: See Comments [facility] (20 sources) Sulfamethoxazole / Trimethoprim; Translations: [SULFAMETHOXAZOLE-T RIMETHOPRIM] Drug Allergy 04-11-19 13 Unknown [facility] (11 sources) Naproxen; Translations: [naproxen sodium] Drug Allergy 09-01-19 22 [facility] (10 sources) Sulfonamides (Antibiotic) Propensity to adverse reactions 09-01-19 22 Other [facility] (1 source) Sulfonamides (Antibiotic) Drug allergy (disorder) 06-06-19 25 [facility] Medications Current Medications Medication Drug Class(es) Dates Sig (Normalized) Sig (Original) A-EB/H6 ([employer]) (20 sources) Start: 10-08-2018 A-EB/H6 ([employer]) Take 1-2 drops daily, increase to 10 drops per day as tolerated. 10/08/2018 Active Start: 10-08-2018 A-EB/H6 ([employer]) Take 1-2 drops daily, increase to 10 drops per day as tolerated. 0 10/08/2018 Active Comment on above: Take 1-2 drops daily , increase to 10 drops per day as tolerated. Biocidin Advanced Formula ([employer]) (20 sources) Start: 03-11-2019 take 5 drop(s) by mouth three times daily Biocidin Advanced Formula ([employer]) Take 5 Drops by mouth three times daily. 03/11/2019 Active Start: 03-11-2019 take 5 drop(s) by mo uth three times daily Biocidin Advanced Formula ([employer]) Take 5 Drops by mouth three times daily. 0 03/11/2019 Active Comment on above: Take 5 Drops by mout h three times daily. cephalexin 500 mg oral capsule (3 sources) Cephalosporin Antibacterial Start: End: take 1 capsule by mouth twice daily cephALEXin (KEFLEX) 500 mg capsule Indications: Injury of right hand, initial encounter Take 1 capsule by mouth two times a day for 5 days. 10 capsule 0 10/25/2023 10/30/2023 Active cholecalciferol 0.125 mg disintegrating oral tablet (10 sources) Vitamin D Start: take 1 tablet by mouth once daily Cholecalciferol (Vitamin D3) 5,000 unit tablet,disintegrating Active 5000 U PO DAILY April 03, 2019 1:00am Start: 04-03-2019 Cholecalcifero l (Vitamin D3) Active UNIT PO April 03, 2019 1:00am Cortisol [employer] 90 ct. ([employer]) Stress, blood sugar, thyroid/hormones/adrenals/sleep/energy/anxiety (20 sources) Start: 06-10-2018 Cortisol [employer]er [address] ([employer]) Stress, blood sugar, thyroid/hormones/adrenals/sleep/energy/anxiety Take 1 in AM and 1 before bed 0 06/10/2018 Active Comment on above: Take 1 in AM and 1 b efore bed diclofenac sodium 75 mg emily yed release oral tablet (20 sources) N o n s t e r o i d a l A n t i - i n f l a m m a t o r y D r u g Start: 02-20-2023 End: 04-05-2023 t a k e 1 t a b l e t b y m o u t h t h r e e t i m e s d a i l y a s n e e d e d f o r p a i n diclofenac, EC, (VOLTAREN) 75 mg EC tabl et Indications: Tendinopathy of gluteus medius Take 1 tablet by mouth three times a day as needed. for pain. 30 tablet 0 03/06/2023 04/05/2023 Active Start: 04-27-2022 End: 06-06-2023 Diclofenac Sodium (Pennsaid) 20 mg/gram /actuation(2 %) solution in metered-dose pump Discontinued 2 NMA TOPICAL Q12H 112 April 27, 2022 1:00am June 06, 2023 5:02pm apply to single affected knee Start: 04-27-2022 End: 06-06-2023 Diclofenac Sodium (Pennsaid) 20 mg/gram /actuation(2 %) solution in metered-dose pump Discontinued 2 PUMP TOPICAL Q12H 112 April 27, 2022 1:00am June 06, 2023 5:02pm apply to single affected knee Start: 01-10-2013 End: 02-17-2022 Diclofenac Sodium 75 MG tabl et Discontinued 75 mg PO NEEDED as needed for Pain January 10, 2013 12:00am February 17, 2022 9:53am Comment on above: Take 75 mg by mouth as needed. Take 1 tablet by florian th three times a day as needed. for pain. ERGOCALCIFEROL, VITAMIN D2, (VITAMIN D ORAL) (20 sources) take 1000 [IU] by mouth once daily ERGOCALCIFEROL, VITAMIN D2, (VITAMIN D ORAL) Take 1,000 Units by mouth once daily. Active take 1000 [IU] by mouth once ying ly ERGOCALCIFEROL, VITAMIN D2, (VITAMIN D ORAL) Take 1,000 Units by mouth once daily. 0 Active Comment on above: Take 1,000 Units by mouth once daily. 84 hr estradiol 0.15861 mg/hr transdermal system (20 sources) Estrogen Start: 03-06-2023 End: 07-30-2023 Estradiol (Vivelle-Dot) 0.05 mg/24 hr patch semiweekly Active 1 NMA TD TWICE A WEEK July 30, 2023 12:23pm apply 1 patch for 3 days alternating with 1 patch for 4 days each week for 3 wks per 4-wk cycle Start: 03-06-2023 End: 07-30-2023 Estradiol (Vivelle-Dot) 0.05 mg/24 hr patch semiweekly Active 1 PATCH TD TWICE A WEEK July 30, 2023 12:23pm apply 1 patch for 3 days alternating with 1 patch for 4 days each week for 3 wks per 4-wk cycle Start: 07-27-2022 Estradiol (DOT TI) 0.0375 mg/24 hr Apply 1 Patch as directed two times a week. 07/27/2022 Active Start: 07-27-2022 End: 03-12-2023 Estradiol (Vivelle-Dot) 0.03 75 mg/24 hr patch semiweekly Discontinued 1 NMA TD TWICE A WEEK November 01, 2022 4:36pm March 12, 2023 2:37pm apply 1 patch for 3 days alternating with 1 patch for 4 days each week for 3 wks per 4-wk cycle Start: 07-27-2022 End: 03-12-2023 Estradiol (Vivelle-Dot) 0.03 75 mg/24 hr patch semiweekly Discontinued 1 PATCH TD TWICE A WEEK October 03, 2022 2:02pm November 01, 2022 4:40pm apply 1 patch for 3 days alternating with 1 patch for 4 days each week for 3 wks per 4-wk cycle hydrocortisone 25 mg/ml topical cream (1 source) Corticosteroid Start: 08-31-2021 Hydrocortisone Active 1 APPLIC TOPICAL TWICE A DAY August 31, 2021 12:00am ketoconazole 20 mg/ml topical cream (1 source) Azole Antifungal Start: 08-31-2021 Ketoconazole Active 1 APPLIC TOPICAL TWICE A DAY 60 August 31, 2021 12:00am krill oil (10 sources) Start: 04-19-2017 take 1 capsule by mouth twice daily Qtzuv-Tg-7-Dha-Epa- Phospho-Ast (Krill Oil) 1,919-091-24-50 mg capsule Active 1 NMA PO TWICE A DAY April 19, 2017 1:00am Start: 04-19-2017 Suvax-Pu-5-Dha -Uts-Hqddrhf-Eto (Krill Oil) 1,547-805-11-50 mg capsule Active 1 CAP PO TWICE A DAY April 19, 2017 12:00am Start: 04-19-2017 Yqwur-Aa-0-Dha -Pyi-Iprceff-Tkc (Krill Oil) 1,124-353-28-50 mg capsule Active 1 CAP PO TWICE A DAY April 19, 2017 1:00am Magnesium (20 sources) Start: 06-10-2018 Magnesium (Citrate) 150 mg (Pure Encapsulations) Take 4 capsules daily. 120 capsule 5 06/10/2018 Active Comment on above: Take 4 capsules jseus y. magnesium gluconate 550 mg oral tablet (10 sources) Start: 04-15-2020 take 1 tablet by mouth once daily Magnesium 30 mg tablet Active 30 mg PO DAILY April 15, 2020 1:00am medroxyPROGESTERone acetate 2.5 mg oral tablet (10 sources) Progestin Start: 07-27-2022 End: 11-21-2023 take 1 tablet by mouth once daily Medroxyprogesterone 2.5 mg tablet Active 2.5 mg PO DAILY November 21, 2023 12:00am melatonin 10 mg oral capsule (20 sources) Start: 04-15-2020 take 5 mg by mouth at bedtime Melatonin 10 mg capsule Active 5 mg PO BEDTIME April 15, 2020 6:07pm Start: 04-15-2020 take 5 mg by mouth at bedtime Melatonin Active 5 MG PO BEDTIME April 15, 2020 6:07pm Start: 04-19-2017 End: 04-15-2020 take 1 capsule by mouth at bedtime as needed Melatonin 10 mg capsule Discontinued 10 mg PO BEDTIME as needed April 19, 2017 1:00am April 15, 2020 6:07pm take 1 tablet by florian th once daily at bedtime melatonin 1 mg tablet Take 1 mg by mouth daily at bedtime. Active Comment on above: Take 1 mg by mouth d aily at bedtime. meloxicam 15 mg oral tablet (20 sources) Nonsteroidal Anti-inflammatory Drug Start: 04-16-2024 take 1 tablet by mouth once daily meloxicam (MOBIC) 15 mg tablet Take 1 tablet by mouth once daily. 30 tablet 1 07/30/2024 Active Start: 03-05-2024 End: 06-05-2024 take 1 tablet by mouth twice daily as needed Meloxicam 7.5 mg tablet Active 7.5 mg PO TWICE A DAY as needed June 05, 2024 5:00pm Start: 01-06-2022 End: 11-03-2022 take 1 tablet by mouth once daily Meloxicam 15 mg tablet Discontinued 15 mg PO DAILY May 24, 2022 1:05pm September 13, 2022 4:56pm Comment on above: Take 1 tablet by florian th once daily. MULTIVIT-MINERALS/FERROUS FUM (MULTI VITAMIN ORAL) (20 sources) MULTIVIT-MINERAL S/FERROUS FUM (MULTI VITAMIN ORAL) Take by mouth once daily. Active MULTIVIT-MINERAL S/FERROUS FUM (MULTI VITAMIN ORAL) Take by mouth once daily. 0 Active Comment on above: Take by mouth once d aily. Multivitamin,Tx-Iro n-Minerals (9 sources) Start: 01-29-2017 take 1 tablet by mouth once daily Multivitamin,Tx-Iro n-Minerals Active 1 TABLET PO DAILY January 29, 2017 12:00am Start: 01-29-2017 take 1 tablet by florian th once daily Multivitamin,Lz-Bviu-Fsbgdnjl Active 1 T ABLET PO DAILY January 29, 2017 1:00am Multivitamin,Ox-Ptpn-Izbtmcp s 1 TABLET tablet (1 source) Start: 01-29-2017 take 1 tablet by mouth once daily Multivitamin,Px-Xlwm-Siwcvmls 1 TABLET tablet Active 1 {tbl} PO DAILY January 29, 2017 1:00am mupirocin 0.02 mg/mg topical ointment (4 sources) RNA Synth etase Inhib itor Antib acter ial Start: 10-25-2023 End: 11-04-2023 mupirocin (BACTROBAN) 2 % ointment Indications: Injury of right hand, initial encounter Apply to affected area three times a day for 10 days. 22 g 0 10/25/2023 11/04/2023 Active oseltamivir 75 mg oral capsu le (2 sources) Neura minid ase Inhib itor Start: 05-27-2024 End: 06-01-2024 take 1 capsule by mouth twice daily oseltamivir (TAMIFLU) 75 mg capsule Indications: Influenza Take 1 capsule by mouth two times a day for 5 days. 10 capsule 05/27/2024 06/01/2024 Active Vitamin D3 5000 U (Pure Encapsulations) (20 sources) Start: 06-10-2018 take 1 capsule by mouth once daily at mealtime Vitamin D3 5000 U (Pure Encapsulations) Take 1 capsule by mouth daily with food. 06/10/2018 Active Start: 06-10-2018 take 1 capsule by mo uth once daily at mealtime Vitamin D3 5000 U (Pure Encapsulations) Take 1 capsule by mouth daily with food. 0 06/10/2018 Active Comment on above: Take 1 capsule by mo uth daily with food. Completed/Discontinued Medications Medication Drug Class(es) Dates Sig (Normalized) Sig (Original) Meriwether (10 sources) Start: 04-19-2017 End: 04-18-2018 Meriwether 250 mg tablet Discontinued mg PO April 19, 2017 1:00am April 18, 2018 6:10pm Start: 04-19-2017 End: 04-18-2018 Meriwether Discontinued MG PO J anuary 2017 12:00am April 18, 2018 5:10pm Start: 04-19-2017 End: 04-18-2018 Meriwether Discontinued MG PO J anuary 2017 1:00am April 18, 2018 6:10pm ascorbic acid 100 mg chewable tablet (10 sources) Vitamin C Start: 04-19-2017 End: 04-15-2020 take 1 tablet by mouth once daily Ascorbic Acid (Vitamin C) 100 mg tablet,chewable Discontinued 100 mg PO daily April 19, 2017 1:00am April 15, 2020 6:05pm calcium carbonate 600 mg / cholecalciferol 0.01 mg oral tablet (10 sources) Vitamin D Start: 04-19-2017 End: 10-03-2018 [id number] p-Abdifatah-Bor (Caltrate 600-D Plus Minerals) 600 mg calcium- 800 unit-50 mg tablet Discontinued 1 {tbl} PO TWICE A DAY April 19, 2017 1:00am October 03, 2018 4:54pm cetirizine hydrochloride 10 mg oral tablet (10 sources) Histamine-1 Receptor Antagonist Start: 01-10-2013 End: 10-18-2017 take 1 tablet by mouth once daily as needed for pain Cetirizine 10 MG tablet Discontinued 10 mg PO DAILY NEEDED as needed for Pain January 10, 2013 12:00am October 18, 2017 5:03pm cyclobenzaprine hydrochloride 5 mg oral tablet (10 sources) Muscle Relaxant Start: 11-02-2020 End: 05-25-2021 take 1 tablet by mouth three times daily as needed for muscle spasms Cyclobenzaprine 5 mg tablet Discontinued 5 mg PO THREE TIMES A DAY as needed for muscle spasm November 02, 2020 12:00am May 25, 2021 6:17pm dexamethasone phosphate 4 mg/ml injectable solution (7 sources) Corticosteroid Start: 04-05-2022 End: 05-24-2022 take 1 dose by mouth once daily Dexamethasone Sodium Phosphate 4 mg/mL solution Discontinued 4 mg PO DAILY April 05, 2022 1:00am May 24, 2022 5:55pm apply to Iontophoresis patch per treatment protocol Start: 04-05-2022 End: 05-24-2022 take 1 dose by mouth once daily Dexamethasone Sodium Phosphate Discontinued 4 MG PO DAILY April 05, 2022 1:00am May 24, 2022 5:55pm apply to Iontophoresis patch per treatment protocol doxycycline monohydrate 100 mg oral capsule (4 sources) Tetracycline-class Drug Start: 09-13-2022 End: 12-20-2022 take 1 capsule by mouth twice daily Doxycycline Monohydrate 100 mg capsule Discontinued 100 mg PO TWICE A DAY September 13, 2022 12:00am December 20, 2022 5:04pm fludrocortisone acetate 0.1 mg oral tablet (20 sources) Start: 06-01-2015 End: 05-25-2021 Fludrocortisone 0.1 mg tablet Discontinued 0.1 mg PO .prn April 15, 2020 6:05pm May 25, 2021 6:16pm gabapentin 300 mg oral capsule (13 sources) Anti-epileptic Agent Start: 07-27-2022 End: 11-21-2023 take 1 capsule by mouth at bedtime Gabapentin 300 mg capsule Discontinued 300 mg PO AT BEDTIME October 27, 2022 3:25pm November 01, 2022 4:40pm methylPREDNISolone 4 mg oral tablet (8 sources) Corticosteroid Start: 03-05-2024 End: 06-05-2024 take 1 tablet by mouth once Methylprednisolone (Medrol (Trevin)) 4 mg tablets,dose pack Discontinued 0 PO per package directions March 05, 2024 1:00am June 05, 2024 5:00pm PO PER PKG DIR for 6 days Start: 04-27-2022 End: 05-05-2022 take 1 tablet by mouth once daily Methylprednisolone (Medrol (Trevin)) 4 mg tablets,dose pack Discontinued 4 mg PO DAILY April 27, 2022 1:00am May 05, 2022 3:54pm one tab by mouth as directed 24 hr metoprolol succinate 25 mg extended release oral tablet (16 sources) beta-Adrenergic Ruma Start: 10-18-2017 End: 05-19-2022 take 1 tablet by mouth once daily Metoprolol Succinate 25 mg tablet extended release 24 hr Discontinued 25 mg PO daily October 18, 2017 12:00am May 25, 2021 6:16pm Comment on above: Take 1 tablet by florian th once daily. ondansetron 4 mg disintegrating oral tablet (19 sources) Serotonin-3 Receptor Antagonist Start: 02-23-2022 End: 05-24-2022 take 1 tablet by mouth every eight hours as needed for nausea Ondansetron 4 mg tablet,disintegra ting Discontinued 4 mg PO EVERY 8 HOURS NEEDED as needed for Nausea February 23, 2022 1:00am May 24, 2022 5:56pm Start: 12-21-2017 End: 12-26-2017 take 1 tablet by mouth three times daily as needed for nausea and vomiting Ondansetron (Zofran Odt) 4 mg tablet,disintegrating Discontinued 4 mg PO THREE TIMES A DAY as needed for nausea and vomiting 12 08December 21, 2017 12:00am December 25, 2017 12:00am December 26, 2017 12:07am PARoxetine hydrochloride 10 mg oral tablet (6 sources) Serotonin Reuptake Inhibitor Start: 05-24-2022 End: 09-13-2022 take 1 tablet by mouth once daily Paroxetine Hcl 10 mg tablet Discontinued 10 mg PO DAILY May 24, 2022 1:00am September 13, 2022 4:56pm TherBiotic Complete 120 Ct. (Klaire/Prothera) (20 sources) Start: 06-10-2018 take 1 capsule by mouth once daily TherBiotic Complete 120 Ct[address] (Klaire/Prothera) Take 1 capsule by mouth once daily. 06/10/2018 Active Start: 06-10-2018 take 1 capsule by mo uth once daily TherBiotic Complete 120 Ct[address] (Klaire/Prothera) Take 1 capsule by mouth once daily. 0 06/10/2018 Active Comment on above: Take 1 capsule by mo uth once daily. Vitamin B Complex (20 sources) Start: 04-15-2020 End: 06-06-2023 take 1 capsule by mouth once daily Vitamin B Complex Discontinued 1 CAP PO DAILY April 15, 2020 1:00am June 06, 2023 5:03pm Start: 04-15-2020 take 1 capsule by mouth once d aily Vitamin B Complex Active 1 CAP PO DAILY April 15, 2020 12:00am Start: 04-15-2020 take 1 capsule by mouth once d aily Vitamin B Complex Active 1 CAP PO DAILY April 15, 2020 1:00am take 2 tablets by mouth once ying ly VITAMIN B COMPLEX (B COMPLEX ORAL) Take 2 tablets by mouth once daily. Active take 2 tablets by mouth once ying ly VITAMIN B COMPLEX (B COMPLEX ORAL) Take 2 tablets by mouth once daily. 0 Active Comment on above: Take 2 tablets by mo uth once daily. Vitamin B Complex capsule (1 source) Start: 04-15-2020 End: 06-06-2023 Vitamin B Complex capsule Discontinued 1 NMA PO DAILY April 15, 2020 1:00am June 06, 2023 5:03pm Problems Active Problems Problem Classification Problem Date Documented Da te Episodic/Chronic Allergic reactions (7 sources) Inflammatory dermatosis; Translations: [Dermatitis, unspecified] Onset: 06-05-2024 12-20-2022 Episodic Anxiety disorders (15 sources) Anxiety; Translations: [Anxiety disorder, unspecified] 05-25-2021 Chronic Complications of surgical procedures or medical care (20 sources) History of subtotal thyroidectomy; Translations: [Postprocedural hypothyroidism] Onset: 09-13-2017 09-13-2017 Chronic Fluid and electrolyte disorders (9 sources) Moderate dehydration; Translations: [Dehydration] 03-03-2022 Episodic Fracture of upper limb (10 sources) Stress fracture of clavicle; Translations: [Stress fracture, right shoulder, initial encounter for fracture] 02-24-2017 Episodic Influenza (10 sources) Influenza due to Influenza A virus; Translations: [Influenza due to other identified influenza virus with other respiratory manifestations] 03-03-2022 Episodic Menopausal disorders (20 sources) Menopausal flushing; Translations: [Menopausal and female climacteric states] Onset: 10-29-2023 05-24-2022 Chronic Mycoses (1 source) Pityriasis versicolor; Translations: [Pityriasis versicolor] Episodic Nausea and vomiting (9 sources) Intractable nausea and vomiting; Translations: [Nausea with vomiting, unspecified] 03-03-2022 Episodic Noninfectious gastroenteritis (10 sources) Gastroenteritis; Translations: [Noninfective gastroenteritis and colitis, unspecified] 04-19-2017 Episodic Other bone disease and musculoskeletal deformities (15 sources) Cervical somatic dysfunction; Translations: [Segmental and somatic dysfunction of cervical region] Episodic Other bone disease and musculoskeletal deformities (16 sources) Somatic dysfunction of thoracic region; Translations: [Segmental and somatic dysfunction of thoracic region] Episodic Other bone disease and musculoskeletal deformities (20 sources) Somatic dysfunction of lumbar region; Translations: [Segmental and somatic dysfunction of lumbar region] Episodic Other bone disease and musculoskeletal deformities (18 sources) Somatic dysfunction of sacral region; Translations: [Segmental and somatic dysfunction of sacral region] Episodic Other bone disease and musculoskeletal deformities (19 sources) Somatic dysfunction of pelvic region; Translations: [Segmental and somatic dysfunction of pelvic region] Episodic Other bone disease and musculoskeletal deformities (12 sources) Somatic dysfunction of lower limb; Translations: [Segmental and somatic dysfunction of lower extremity] Episodic Other bone disease and musculoskeletal deformities (1 source) Somatic dysfunction of abdominal region; Translations: [Segmental and somatic dysfunction of abdomen and other regions] Episodic Other bone disease and musculoskeletal deformities (8 sources) Somatic dysfunction of rib; Translations: [Segmental and somatic dysfunction of rib cage] Episodic Other bone disease and musculoskeletal deformities (13 sources) Somatic dysfunction of head region; Translations: [Segmental and somatic dysfunction of head region] Episodic Other bone disease and musculoskeletal deformities (12 sources) Somatic dysfunction of upper limb; Translations: [Segmental and somatic dysfunction of upper extremity] Episodic Other bone disease and musculoskeletal deformities (1 source) Segmental and somatic dysfunction of rib cage; Translations: [Somatic dysfunction of rib] Onset: 08-12-2024 Episodic Other circulatory disease (20 sources) Raynaud's phenomenon; Translations: [Raynaud's syndrome without gangrene] 01-04-2017 Chronic Other connective tissue disease (1 source) Pain in unspecified hand; Translations: [Pain in unspecified hand] Onset: 06-24-2018 Episodic Other connective tissue disease (2 sources) Bursitis of knee; Translations: [Other bursitis of knee, unspecified knee] Episodic Other connective tissue disease (9 sources) Pes anserinus bursitis of right knee; Translations: [Other bursitis of knee, right knee] 02-17-2022 Episodic Other connective tissue disease (9 sources) Other bursitis of knee, right knee; Translations: [Pes anserinus tendinitis or bursitis] Episodic Other connective tissue disease (3 sources) Disorder of tendon; Translations: [Unspecified disorder of synovium and tendon, unspecified thigh] 03-06-2023 Episodic Other connective tissue disease (2 sources) Iliotibial band friction syndrome of right knee; Translations: [Iliotibial band syndrome, right leg] 05-16-2023 Episodic Other connective tissue disease (1 source) Pain in left arm; Translations: [Pain in left arm] 05-16-2023 Episodic Other connective tissue disease (5 sources) Pain in finger of right hand; Translations: [Pain in right finger(s)] 10-02-2023 Episodic Other connective tissue disease (1 source) Pain in right hand; Translations: [Pain in right hand] 11-15-2023 Episodic Other connective tissue disease (14 sources) Ischial bursitis ; Translations: [Other bursitis of hip, right hip] 02-15-2024 Episodic Other connective tissue disease (2 sources) Pain in axilla; Translations: [Pain in left upper arm] 06-05-2024 Episodic Other connective tissue disease (5 sources) Hamstring injury; Translations: [Other specified enthesopathies of right lower limb, excluding foot] 07-30-2024 Episodic Other connective tissue disease (1 source) Pain in left upper arm; Translations: [Pain in left upper arm] Onset: 06-28-2024 Episodic Other connective tissue disease (1 source) Other specified enthesopathies of right lower limb, excluding foot; Translations: [Hamstring tendinitis of right thigh] Onset: 09-03-2024 Episodic Other ear and sense organ disorders (3 sources) Tinnitus; Translations: [Tinnitus, unspecified ear] 06-06-2023 Episodic Other ear and sense organ disorders (2 sources) Tinnitus, unspecified ear; Translations: [Tinnitus, unspecified] 06-06-2023 Episodic Other ear and sense organ disorders (2 sources) Bilateral tinnitus; Translations: [Tinnitus, bilateral] 06-05-2024 Episodic Other ear and sense organ disorders (1 source) Tinnitus, bilateral; Translations: [Tinnitus, bilateral] Onset: 06-05-2024 Episodic Other female genital disorders (2 sources) Polyp of cervix; Translations: [Polyp of cervix uteri] 07-30-2023 Episodic Other gastrointestinal disorders (20 sources) Irritable bowel syndrome; Translations: [Irritable bowel syndrome without diarrhea] Onset: 06-10-2018 06-10-2018 Chronic Other gastrointestinal disorders (1 source) Constipation, unspecified; Translations: [Constipation, unspecified] Onset: 06-24-2018 Episodic Other gastrointestinal disorders (1 source) Abdominal distension (gaseous); Translations: [Abdominal distension (gaseous)] Onset: 06-24-2018 Episodic Other gastrointestinal disorders (1 source) Irritable bowel syndrome with constipation; Translations: [Irritable bowel syndrome with constipation] Onset: 06-24-2018 Other injuries and conditions due to external causes (1 source) Unspecified injury of right wrist, hand and finger(s), initial encounter; Translations: [Injury of right hand, initial encounter] Onset: 10-26-2023 Episodic Other lower respiratory disease (2 sources) Rib pain; Translations: [Pleurodynia] 07-01-2024 Episodic Other lower respiratory disease (1 source) Pleurodynia; Translations: [Rib pain on left side] Onset: 08-12-2024 Episodic Other nervous system disorders (3 sources) Other chronic pain; Translations: [Chronic right shoulder pain] Onset: 10-02-2023 Chronic Other non-traumatic joint disorders (19 sources) Pain in right knee; Translations: [Pain in joint, lower leg] Episodic Other non-traumatic joint disorders (3 sources) Chronic pain of right upper limb; Translations: [Pain in right shoulder] 01-01-2023 Episodic Other non-traumatic joint disorders (2 sources) Hip pain; Translations: [Pain in right hip] 07-30-2024 Episodic Other non-traumatic joint disorders (1 source) Pain in right shoulder; Translations: [Chronic right shoulder pain] Onset: 07-01-2024 Episodic Other non-traumatic joint disorders (1 source) Pain in right hip; Translations: [Pain of right hip] Onset: 08-13-2024 Episodic Other nutritional; endocrine; and metabolic disorders (9 sources) Ketosis; Translations: [Other specified metabolic disorders] 03-03-2022 Chronic Other skin disorders (1 source) Rash and other nonspecific skin eruption; Translations: [Rash and other nonspecific skin eruption] Episodic Residual codes; unclassified (1 source) Insomnia, unspecified; Translations: [Insomnia, unspecified] Onset: 06-24-2018 Episodic Residual codes; unclassified (2 sources) Pain; Translations: [Pain, unspecified] 04-01-2024 Episodic Skin and subcutaneous tissue infections (5 sources) Cellulitis; Translations: [Cellulitis, unspecified] 09-13-2022 Episodic Sprains and strains (1 source) Acetabular labrum tear; Translations: [Other sprain of right hip, subsequent encounter] 09-09-2024 Episodic Superficial injury; contusion (1 source) Foreign body in hand; Translations: [Superficial foreign body of right hand, initial encounter] 10-25-2023 Episodic Thyroid disorders (20 sources) Nontoxic single thyroid nodule; Translations: [Autoimmune thyroiditis] Onset: 01-24-2017 01-24-2017 Chronic Unclassified (1 source) Unknown / UNK(Unknown) Onset: 06-07-2017 Unclassified (1 source) Established Patient Onset: 12-07-2023 Unclassified (2 sources) Tinnitus of both ears; Translations: [H93.13 - Tinnitus, bilateral,T78.40XA - Allergy, unspecified, initial encounter] Unclassified (1 source) POTS (postural orthostatic tachycardia syndrome); Translations: [POTS (postural orthostatic tachycardia syndrome)] Onset: 05-27-2024 Unclassified (1 source) Flu Like Symptoms Onset: 05-27-2024 Past or Other Problems Problem Classification Problem Date Documented Da te Episodic/Chronic Abdominal pain (20 sources) Abdominal pain; Translations: [Unspecified abdominal pain] Onset: 02-27-2013 Resolved: 06-07-2017 06-07-2017 Episodic Cardiac dysrhythmias (20 sources) Postural orthostatic tachycardia syndrome ; Translations: [Other specified cardiac arrhythmias] Onset: 09-14-2013 Resolved: 06-07-2017 04-19-2017 Chronic Cardiac dysrhythmias (20 sources) Tachycardia; Translations: [Tachycardia, unspecified] Onset: 02-27-2013 Resolved: 06-07-2017 06-07-2017 Episodic Immunizations and screening for infectious disease (5 sources) Requires a tetanus booster; Translations: [Encounter for immunization] Onset: 01-03-2024 10-25-2023 Episodic Malaise and fatigue (20 sources) Weakness; Translations: [Asthenia] Onset: 02-27-2013 02-27-2013 Episodic Open wounds of extremities (20 sources) Puncture wound of hand with foreign body; Translations: [Puncture wound with foreign body of right hand, initial encounter] Onset: 10-26-2023 10-26-2023 Episodic Other bone disease and musculoskeletal deformities (1 source) Segmental and somatic dysfunction of head region; Translations: [Somatic dysfunction of head region] Onset: 12-03-2023 Episodic Other bone disease and musculoskeletal deformities (1 source) Segmental and somatic dysfunction of cervical region; Translations: [Somatic dysfunction of cervical region] Onset: 12-03-2023 Episodic Other bone disease and musculoskeletal deformities (1 source) Segmental and somatic dysfunction of thoracic region; Translations: [Somatic dysfunction of thoracic region] Onset: 12-03-2023 Episodic Other bone disease and musculoskeletal deformities (1 source) Segmental and somatic dysfunction of lumbar region; Translations: [Somatic dysfunction of lumbar region] Onset: 12-03-2023 Episodic Other bone disease and musculoskeletal deformities (1 source) Segmental and somatic dysfunction of sacral region; Translations: [Somatic dysfunction of sacral region] Onset: 12-03-2023 Episodic Other bone disease and musculoskeletal deformities (1 source) Segmental and somatic dysfunction of pelvic region; Translations: [Somatic dysfunction of pelvis region] Onset: 12-03-2023 Episodic Other bone disease and musculoskeletal deformities (1 source) Segmental and somatic dysfunction of upper extremity; Translations: [Somatic dysfunction of upper extremity] Onset: 12-03-2023 Episodic Other bone disease and musculoskeletal deformities (1 source) Segmental and somatic dysfunction of lower extremity; Translations: [Somatic dysfunction of lower extremity] Onset: 10-02-2023 Episodic Other circulatory disease (20 sources) Orthostatic hypotension; Translations: [Orthostatic hypotension] Onset: 04-23-2013 Resolved: 06-07-2017 06-07-2017 Episodic Other connective tissue disease (20 sources) Hand pain; Translations: [Pain in unspecified hand] Onset: 06-10-2018 06-10-2018 Episodic Other connective tissue disease (2 sources) Other bursitis of hip, right hip; Translations: [Ischial bursitis of right side] Onset: 04-09-2024 Episodic Other connective tissue disease (1 source) Pain in right finger(s); Translations: [Finger pain, right] Onset: 12-03-2023 Episodic Other connective tissue disease (1 source) Unspecified disorder of synovium and tendon, unspecified thigh; Translations: [Tendinopathy of gluteus medius] Onset: 11-15-2023 Episodic Other connective tissue disease (1 source) Pain in right hand; Translations: [Right hand pain] Onset: 11-15-2023 Episodic Other connective tissue disease (1 source) Iliotibial band syndrome, right leg; Translations: [It band syndrome, right] Onset: 10-02-2023 Episodic Other female genital disorders (2 sources) Polyp of cervix uteri; Translations: [Mucous polyp of cervix] Onset: 10-29-2023 07-30-2023 Episodic Other gastrointestinal disorders (20 sources) Constipation; Translations: [Constipation, unspecified] Onset: 06-10-2018 06-10-2018 Episodic Other gastrointestinal disorders (20 sources) Abdominal bloating; Translations: [Abdominal distension (gaseous)] Onset: 06-10-2018 06-10-2018 Episodic Other gastrointestinal disorders (20 sources) Small bowel bacterial overgrowth syndrome; Translations: [Other specified diseases of intestine] Onset: 08-13-2018 08-13-2018 Episodic Other gastrointestinal disorders (20 sources) Diarrhea; Translations: [Diarrhea, unspecified] Onset: 02-27-2013 Resolved: 06-07-2017 06-07-2017 Episodic Other injuries and conditions due to external causes (20 sources) Rupture of muscle; Translations: [Other injury of unspecified body region, initial encounter] Onset: 04-23-2013 Resolved: 06-07-2017 06-07-2017 Episodic Other injuries and conditions due to external causes (20 sources) Injury of right hand; Translations: [Unspecified injury of right wrist, hand and finger(s), initial encounter] Onset: 10-26-2023 10-25-2023 Episodic Other non-traumatic joint disorders (1 source) Pain in left knee; Translations: [Chronic pain of left knee] Onset: 10-02-2023 Episodic Other skin disorders (20 sources) Localized swelling, mass and lump, unspecified upper limb; Translations: [Other symptoms referable to joint, upper arm] Onset: 11-03-2015 11-03-2015 Episodic Residual codes; unclassified (20 sources) Insomnia; Translations: [Insomnia, unspecified] Onset: 06-10-2018 06-10-2018 Episodic Residual codes; unclassified (1 source) Pain, unspecified; Translations: [Pain] Onset: 04-16-2024 Episodic Spondylosis; intervertebral disc disorders; other back problems (20 sources) Sacroiliac disorder; Translations: [Sacrococcygeal disorders, not elsewhere classified] Onset: 10-02-2023 Episodic Thyroid disorders (20 sources) Disorder of thyroid, unspecified; Translations: [Mass of thyroid gland] Onset: 01-24-2017 Resolved: 06-07-2017 06-07-2017 Episodic Unclassified (10 sources) 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-2021 Comment on above: 2012 Unclassified (10 sources) SIBO 10-12-2021 Unclassified (20 sources) hemangeoma left elbow 10-12-2021 Comment on above: 2015 Unclassified (10 sources) left glute medius tenson repair 10-12-2021 Comment on above: 2009 Unclassified (20 sources) left knee scope 10-12-2021 Comment on above: 12/2016 Unclassified (10 sources) right glute medius tendon repair 10-12-2021 Comment on above: 2008 Results Test Name Value Interpretation Reference Range Facility US HIP RTon 09-03-2024 US HIP RT * * *Final Report* * * DATE OF EXAM: Sep 03 2024 8:24AM [facility] 1148 - HIP RT / PROCEDURE REASON: multiple diagnoses * * * * Physician Interpretation * * * * RIGHT POSTERIOR HIP ULTRASOUND CLINICAL INFORMATION: Ischial bursitis of right side Hamstring tendinitis of right thigh TECHNIQUE: Moscoso-scale real-time ultrasound of the posterior hip with dynamic evaluation and power Doppler was performed. Images were saved to the permanent image archive. [id number]. COMPARISON: None FINDINGS: PROXIMAL HAMSTRING TENDONS AND ISCHIUM: Tendinosis: Mild. Tearing: None. Power Doppler: Normal power Doppler imaging. Ischial Bursa: No findings of bursitis. Ischial Tuberosity: No osseous hypertrophic changes. Posteromedial Adductor Origin: Intact. POSTERIOR HIP MUSCULATURE: No significant abnormality of the imaged portions of the gluteus wei, piriformis, obturator internus and quadratus femoris muscles. PROXIMAL POSTERIOR THIGH MUSCULATURE: The biceps femoris and semitendinosus muscles are unremarkable. Limited evaluation of the medial adductor gonzalo muscle is unremarkable. ISCHIOFEMORAL SPACE: Maintained. Quadratus femoris space: Maintained. Dynamic evaluation of the ischiofemoral space is normal with normal movement of the sciatic nerve. SCIATIC NERVE AT THE POSTERIOR HIP: Normal appearance. IMPRESSION: Mild hamstring origin tendinosis. No other significant abnormality is identified. The sciatic nerve is within normal limits. Auto Bench Mechanic: JESUS Transcribe Date/Time: Sep 03 2024 8:26A Dictated by : ANTONIO SALAS MD This examination was interpreted and the report reviewed and electronically signed by: ANTONIO SALAS MD on Sep 03 2024 8:27AM EST [id number] Normal [facility] Hip - righton 09-03-2024 IMPRESSION: Mild hamstring origin tendinosis. No other significant abnormality is identified. The sciatic nerve is within normal limits. Auto Bench Mechanic: [email or web address] Transcribe Date/Time: Sep 03 2024 8:26A Dictated by : ANTONIO SALAS MD This examination was interpreted and the report reviewed and electronically signed by: ANTONIO SALAS MD on Sep 03 2024 8:27AM EST DIVISION OF RADIOLOGY * * *Final Report* * * DATE OF EXAM: Sep 03 2024 8:24AM [facility] 1148 - HIP RT / PROCEDURE REASON: multiple diagnoses * * * * Physician Interpretation * * * * RIGHT POSTERIOR HIP ULTRASOUND CLINICAL INFORMATION: Ischial bursitis of right side Hamstring tendinitis of right thigh TECHNIQUE: Moscoso-scale real-time ultrasound of the posterior hip with dynamic evaluation and power Doppler was performed. Images were saved to the permanent image archive. [id number]. COMPARISON: None FINDINGS: PROXIMAL HAMSTRING TENDONS AND ISCHIUM: Tendinosis: Mild. Tearing: None. Power Doppler: Normal power Doppler imaging. Ischial Bursa: No findings of bursitis. Ischial Tuberosity: No osseous hypertrophic changes. Posteromedial Adductor Origin: Intact. POSTERIOR HIP MUSCULATURE: No significant abnormality of the imaged portions of the gluteus wei, piriformis, obturator internus and quadratus femoris muscles. PROXIMAL POSTERIOR THIGH MUSCULATURE: The biceps femoris and semitendinosus muscles are unremarkable. Limited evaluation of the medial adductor gonzalo muscle is unremarkable. ISCHIOFEMORAL SPACE: Maintained. Quadratus femoris space: Maintained. Dynamic evaluation of the ischiofemoral space is normal with normal movement of the sciatic nerve. SCIATIC NERVE AT THE POSTERIOR HIP: Normal appearance. DIVISION OF RADIOLOGY [facility] * * *Final Report* * * DATE OF EXAM: Sep 03 2024 8:24AM [facility] 1148 - US HIP RT / PROCEDURE REASON: multiple diagnoses * * * * Physician Interpretation * * * * RIGHT POSTERIOR HIP ULTRASOUND CLINICAL INFORMATION: Ischial bursitis of right side Hamstring tendinitis of right thigh TECHNIQUE: Moscoso-scale real-time ultrasound of the posterior hip with dynamic evaluation and power Doppler was performed. Images were saved to the permanent image archive. [id number]. COMPARISON: None FINDINGS: PROXIMAL HAMSTRING TENDONS AND ISCHIUM: Tendinosis: Mild. Tearing: None. Power Doppler: Normal power Doppler imaging. Ischial Bursa: No findings of bursitis. Ischial Tuberosity: No osseous hypertrophic changes. Posteromedial Adductor Origin: Intact. POSTERIOR HIP MUSCULATURE: No significant abnormality of the imaged portions of the gluteus wei, piriformis, obturator internus and quadratus femoris muscles. PROXIMAL POSTERIOR THIGH MUSCULATURE: The biceps femoris and semitendinosus muscles are unremarkable. Limited evaluation of the medial adductor gonzalo muscle is unremarkable. ISCHIOFEMORAL SPACE: Maintained. Quadratus femoris space: Maintained. Dynamic evaluation of the ischiofemoral space is normal with normal movement of the sciatic nerve. SCIATIC NERVE AT THE POSTERIOR HIP: Normal appearance. IMPRESSION IMPRESSION: Mild hamstring origin tendinosis. No other significant abnormality is identified. The sciatic nerve is within normal limits. Auto Bench Mechanic: JESUS Transcribe Date/Time: Sep 03 2024 8:26A Dictated by : ANTONIO SALAS MD This examination was interpreted and the report reviewed and electronically signed by: ANTONIO SALAS MD on Sep 03 2024 8:27AM EST [facility] Radiology Study observation (narrative) Pablo smith [facility] US Hip - rightOrdered By: Jeanne da silva Provider on 09-03-2024 [facility] MRI HIP WO IVCON RTon 2024 MRI HIP WO IVCON RT * * *Final Report* * * DATE OF EXAM: Aug 13 2024 9:11AM [facility] 0207 - MRI HIP WO IVCON RT / PROCEDURE REASON: multiple diagnoses * * * * Physician Interpretation * * * * EXAMINATION: MRI HIP WO IVCON RT HISTORY: Pain of right hip Ischial bursitis of right side Hamstring tendinitis of right thigh TECHNIQUE: Routine multiplanar MRI of the hip without contrast COMPARISON: 04/16/2024 radiographs RESULT: Hip joints: Right hip: Anterosuperior acetabular labral tear without displacement. Minimal paralabral chondrosis. Articular cartilage is otherwise relatively preserved. No sizable joint effusion. No subchondral fracture. Large [id number] images of the left hip are unremarkable. Evaluation of articular cartilage and labrum is limited. Bone Marrow: No fracture or suspicious marrow replacing lesions. Small synovial herniation pit at the right femoral head/neck junction. Sacroiliac joints: Within normal limits. Pubic symphysis: Within normal limits. Tendons: Postoperative changes of the gluteus medius tendon repair bilaterally with foci of susceptibility along the gluteus medius tendon insertions. There is increased signal and thickening along the tendon insertion on the right greater than left which could be postoperative and/or tendinosis, although there is no full-thickness or retracted recurrent tearing. Mild right hamstring origin tendinosis. Mild left adductor gonzalo origin tendinosis. No high-grade tear at the hamstring origins. Intact iliopsoas insertions with minimal tendinosis. Adductor and rectus femoris origins are intact. Mild right trochanteric bursitis. Muscles: Within normal limits. Other: No other significant findings. Localizer images: No significant additional findings. IMPRESSION: Right hip acetabular labral tear with minimal paralabral chondrosis . Bilateral gluteus medius insertional tendon repair. Right greater than left insertional signal and thickening which could be postoperative and/or tendinosis. Mild right trochanteric bursitis. Mild right hamstring origin tendinosis without tear. Auto Bench Mechanic: PSCB Transcribe Date/Time: Aug 13 2024 1:59P Dictated by : SVEN RIOS MD This examination was interpreted and the report reviewed and electronically signed by: SVEN RIOS MD on Aug 13 2024 5:04PM EST [id number] Normal [facility] CNOVon 08-12-2024 CNOV Office Visit (OMMS) -------- MARGOT HU ([id number]) 1970 [facility] Date Time Provider Department 08/12/24 8:15 AM [facility] During your visit today, we recorded the following information about you: Temperature Pulse Blood pressure Weight 97.9 degrees 71/minute 126/70 74.8 kg Taniak Alves DO 08/12/2024 9:15 AM Signed [facility] Progress Note Name: Margot Hu Date of : 1970 PCP: Ama Hamilton MD Date of Exam: August 12, 2024 This note was completed using [employer] AI Scribe; use of the scribe was explained to the patient who gave verbal consent to use of an AI scribe. Chief Complaint: This is Margot Hu, a 53 year old female who presents with Patient presents with: Rib pain on left side AMB ROOMING INTAKE FLOWSHEET DATA Pain Pain Level: 3 Pain Location: Buttocks-Right Description: Aching Duration Units: Months Frequency: Intermittent Intervention/Comfort measure: Relaxation, Reposition, Exercise, Cold, Medication, Positioning SUBJECTIVE History of Present Illness: Margot is a 53-year-old female presenting with bilateral hip pain, left rib pain, and right ischial tuberosity pain. Margot reports a recurrence of right hip pain, now accompanied by left hip and left rib pain. She is currently taking meloxicam and has an MRI for her hip scheduled for tomorrow. She describes the pain in her right ischial tuberosity as sharp and notes that it began suddenly while she was sitting in a car, without any preceding injury. The pain has been severe enough to prevent her from lying on either side while sleeping. She also reports a distinct pain on the medial part of the ischial tuberosity, which persisted even after a previous injection that alleviated bursitis. Additionally, Margot experiences stabbing pain in her left ribs, which is exacerbated by certain movements and relieved by bending to the left. She also notes that activities such as raking sticks after a storm have caused prolonged aching in her ribs. She mentions that her iliotibial band pain is not well-controlled and describes a sensation of nerve pain when pressure is applied to her abdomen during aerial yoga. She has an ultrasound scheduled to further investigate her symptoms. Medical, surgical, and family histories reviewed. Allergies and social history reviewed. Review of Systems: Constitutional: (+) sleep disturbance Musculoskeletal: (+) right hip pain, (+) left hip pain, (+) left rib pain, (+) sharp pain OBJECTIVE BP 126/70 Pulse 71 Temp (Src) 97.9 (Temporal) Wt 164 lb 14.5 oz (74.8kg) LMP 10/25/2023 GENERAL: NAD, alert and oriented SKIN: unremarkable, no rash or skin lesions. HEAD: normocephalic. Suboccipital hypertonicity. NOSE/SINUSES: Nares normal. Septum midline. OROPHARYNX: lips, mucosa, and tongue normal, good dentition. No oral lesions noted. NECK: Supple. EXTREMITIES: Normal, No deformities, No skin discoloration, No edema. NEURO: Awake, alert, normal gait, no involuntary motions MSK: Tender point on the mid axillary line on left rib 6. Left rib 6 also slightly inhaled. No significant somatic dysfunction in the cervical or thoracic spine. L5 flexed, rotated and side bent right. Mild to moderate bilateral lumbar paraspinal hypertonicity, slightly more pronounced on the right. Right innominate anteriorly rotated and out flared. Right sacroiliac ligament tight. Left on right sacral torsion. Trigger band noted just inferior of the ASIS and tracking anterolaterally to about 5 cm inferior of the right greater trochanter. ASSESSMENT AND PLAN Chronic right si joint pain (primary encounter diagnosis) Rib pain on left side Somatic dysfunction of head region Somatic dysfunction of lumbar region Somatic dysfunction of sacral region Somatic dysfunction of pelvis region Somatic dysfunction of rib Somatic dysfunction of lower extremity Orders Placed This Encounter Osteopathic manipulative treatment (OMT) Order Comments: This order was created via procedure documentation Patient presents for follow-up, reporting brief flareup of the chronic right hip pain, extending into the right IT band. Also having flare of left rib pain. OMT has provided some relief for this in the past; she is also undergoing orthopedic workup. Somatic dysfunction correlating with her symptoms was identified on exam today. OMT was performed today to improve function and reduce symptoms with good effect. See procedure note below. Return in about 6 weeks (around 09/23/2024). 25 minutes were spent on the date of service was dedicated to preparing to see the patient, [id number] patient care, completing clinical documentation, obtaining and/or reviewing separately obtained history, performing a medically appropriate examination, couns (more content not included)... Normal [facility] Osteopathic manipulative dominic atment (OMT)on 08-12-2024 Tanika Alves DO 08/12/2024 9:15 AM Osteopathic manipulative treatment (OMT) Time/Date:08/12/2024 9:13 AM Informed Consent Consent Obtained: Verbal Acworth Protocol A moment to CARE was completed. SIGN IN Special Equipment: N/A Patient/Surrogate Stated/Verified: Patient name, Date of and Intended procedure TIME OUT Consent documented and matches the intended procedure. Consent Obtained:Verbal Body Regions: Head, Ribs, Lumbar, Sacrum, Pelvis and Lower Extremities Head Technique: suboccipital release Ribs Technique: counterstrain Lumbar Technique: myofascial release Sacrum Technique: balanced ligamentous tension, myofascial release Pelvis Technique: balanced ligamentous tension, myofascial release Lower Extremities Technique:counterstrain, myofascial release Number of Body Regions: 5- 6 Disposition: Osteopathic manipulation tolerated well, reports subjective and objective improvement, improvement in range of motion and mechanics, instructed to increase hydration for the next 24 hours and instructed to follow up if symptoms worsen or fail to improve [facility] Joaquín 07-31-2024 CNPN Telephone (RULTTB) -------- MARGOT HU ([id number]) 1970 F [facility] Date Time Provider Department 07/31/24 EASTON WULTTB During your visit today, we recorded the following information about you: Easton Wu 07/31/2024 8:14 AM Addendum Visit Type: US MSK1 Visit Length: 45 OR 60 MINUTES Order Name/Protocol: US HIP RT; POSTERIOR-EVAL HAMSTRING INSERTION+SCIATIC NERVE. HX OF GLUTE MED TENDON REPAIR Preferred Provider: N/A Comment: N/A Location: [facility] Slot held: N/A Fabby Guillory 07/31/2024 9:25 AM Signed PT scheduled for MSK US on 09/03/24 at 8:15 AM at [facility] Allergies As of Date: 07/31/2024 Noted Allergy Reaction SULFAMETHOXAZOLE-TRIMETH OPRIM 04/11/2012 16 - Unknown ALEVE (NAPROXEN) 02/27/2013 4 - Hives BACTRIM (SULFAMETHOXAZOLE) 02/27/2013 14 - Other: See Comments Comments: Swollen joints LACTOSE INTOLERANCE (LACTASE) 02/27/2013 14 - Other: See Comments Comments: Gastric problems, swelling of lymph nodes MIDODRINE 06/01/2015 2 - Rash PENICILLINS 02/27/2013 16 - Unknown Comments: Childhood reaction. Date Reviewed: 07/30/2024 Reviewed by: Shruti Styles OCCA - Fully Assessed Reason for Visit: Appointment [186] Prescriptions as of 07/31/2024 - meloxicam (MOBIC) 15 mg tablet Take 1 tablet by mouth once daily. - meloxicam (MOBIC) 15 mg tablet Take 1 tablet by mouth once daily. - Estradiol (ZANDER) 0.0375 mg/24 hr Apply 1 Patch as directed two times a week. - Biocidin Advanced Formula ([employer]) Take 5 Drops by mouth three times daily. - A-EB/H6 (Bright White Formulas) Take 1-2 drops daily, increase to 10 drops per day as tolerated. - Cortisol Masonry Installer 90 ct. ([employer]) Stress, blood sugar, thyroid/hormones/adrenal s/sleep/energy/anxiety Take 1 in AM and 1 before bed - Magnesium (Citrate) 150 mg (Pure Encapsulations) Take 4 capsules daily. - TherBiotic Complete 120 Ct. (Klaire/Prothera) Take 1 capsule by mouth once daily. - Vitamin D3 5000 U (Pure Encapsulations) Take 1 capsule by mouth daily with food. - melatonin 1 mg tablet Take 1 mg by mouth daily at bedtime. - MULTIVIT-MINERALS/FERROU S FUM (MULTI VITAMIN ORAL) Take by mouth once daily. - ERGOCALCIFEROL, VITAMIN D2, (VITAMIN D ORAL) Take 1,000 Units by mouth once daily. - VITAMIN B COMPLEX (B COMPLEX ORAL) Take 2 tablets by mouth once daily. Problem List As Of Date 07/31/2024 Noted Resolved Weakness [R53.1] 02/27/2013 Tachycardia [R00.0] 02/27/2013 06/07/2017 Abdominal pain, other specified site [R10.9] 02/27/2013 06/07/2017 Diarrhea [R19.7] 02/27/2013 06/07/2017 Muscle tear [T14.8XXA] 04/23/2013 06/07/2017 Orthostatic hypotension [I95.1] 04/23/2013 06/07/2017 POTS (postural orthostatic tachycardia syndrome*09/14/2013 06/07/2017 Mass of elbow region [R22.30] 11/03/2015 Raynaud's phenomenon [I73.00] [place]'s thyroiditis [E06.3] 01/24/2017 Thyroid mass [E07.9] 01/24/2017 06/07/2017 S/P partial thyroidectomy [E89.0] 09/13/2017 Hand pain [M79.643] 06/10/2018 Constipation [K59.00] 06/10/2018 Bloating [R14.0] 06/10/2018 Insomnia [G47.00] 06/10/2018 IBS (irritable bowel syndrome) [K58.9] 06/10/2018 Small intestinal bacterial overgrowth [K63.8219]08/13/2018 Injury of right hand [S69.91XA] 10/26/2023 Puncture wound of right hand with foreign body *10/26/2023 Encounter Status:Closed by FABBY GUILLORY on 07/31/24 Normal [facility] CNOVon 07-30-2024 CNOV Office Visit (SPRTSO ) -------- MARGOT HU ([id number]) 1970 F [facility] Date Time Provider Department 07/30/24 3:30 PM SARAH WYNN During your visit today, we recorded the following information about you: Sarah Wynn MD 07/30/2024 3:49 PM Signed DEPARTMENT OF ORTHOPAEDICS Chief Complaint: Right hip pain Patient returns for follow up of right hip pain. Last seen 05-28-24 Patient reports no interim trauma. Patient states she was making some improvements up until about 2 weeks ago. No new trauma. Pain is in several different spots around her hip - lateral, proximal hamstring, gluteal region. Pain is affecting ADL's. PHYSICAL EXAM: [facility] 10/25/2023 General: Appears stated age, well built, in no apparent distress. Psychiatric: Mood and affect appropriate. Alert and oriented x 3 without evidence of abnormal respiratory effort. Musculoskeletal Exam: Gait normal, Posture: erect and normal. Exam: Right Left Single Leg Trendelenburg Negative Negative Hip flexion 100 100 IR 20 20 ER 50 50 Anterior impingement negative negative Dynamic labral stress negative negative BERLIN negative negative Posterior Impingement negative negative DHIRAJ negative negative Strength Supine HF 5/5 5/5 Upright HF 5/5 5/5 Adduction 5/5 5/5 Abduction 5/5 5/5 Tenderness with Palpation: Right Left Greater Troch Positive Negative Gluteus Medius Positive Positive Piriformis Positive Negative TTP right ischium IMPRESSION: Ischial bursitis of right hip PLAN: 1. Medication: Mobic 15mg PO q Day with meals PRN 2. Test(s)/Imaging/Referral (s): MRI and US Justification for advanced imaging based on the following: failed conservative treatment, an adequate course of formal physical therapy without relief, an adequate course of an in home rehabilitation program without relief, the use of analgesics including anti-inflammatory medication, when not contra-indicated, without relief, the use of corticosteroids, when not contra-indicated, without relief, activity modification, continued pain and weakness, and duration of symptoms without relief. 3. Intervention: Continue conservative treatment. We will obtain update imaging to further evaluate. Last MRI was in 2022. Patient is having recurrent right hip pain in several different spots around her hip joint. She also is s/p glute med repair several years ago. We will follow up with the patient after imaging is completed to go over the results and set up the next steps accordingly. Patient is on board with the plan and all questions were answered. They will let us know if there are any issues in the interim. 4. Follow-up: In office or virtual follow up after imaging is completed. Scribe Attestation: By signing my name below, I, ERNST Rodas, attest that this documentation has been prepared under the direction and in the presence of Sarah Wynn M.D. Electronically Signed:ERNST Rodas, July 30, 2024 3:33 PM I agree with the Chief Complaint, ROS, and Past Histories independently gathered by the clinical business support administrator and the remaining scribed note accurately describes my personal service to the patient. Sarah Wynn MD Allergies As of Date: 07/30/2024 Noted Allergy Reaction SULFAMETHOXAZOLE-TRIMETH OPRIM 04/11/2012 16 - Unknown ALEVE (NAPROXEN) 02/27/2013 4 - Hives BACTRIM (SULFAMETHOXAZOLE) 02/27/2013 14 - Other: See Comments Comments: Swollen joints LACTOSE INTOLERANCE (LACTASE) 02/27/2013 14 - Other: See Comments Comments: Gastric problems, swelling of lymph nodes MIDODRINE 06/01/2015 2 - Rash PENICILLINS 02/27/2013 16 - Unknown Comments: Childhood reaction. Date Reviewed: 07/30/2024 Reviewed by: Shruti Styles OCCA - Fully Assessed Reason for Visit: Follow Up [171] Primary Visit Diagnosis:Hamstring tendinitis of right thigh [M76.891] Other Visit Diagnoses:Pain of right hip [M25.551] Ischial bursitis of right side [M70.71] Order(s):MRI HIP WO IVCON RIGHT [[id number]] Order #: [id number] FUTURE US HIP RIGHT [[id number]] Order #: [id number] FUTURE meloxicam (MOBIC) 15 mg tabletTake 1 tablet by mouth once daily.Disp: 30 tabletRfl: 1 Prescriptions as of 07/30/2024 - meloxicam (MOBIC) 15 mg tablet Take 1 tablet by mouth once daily. - meloxicam (MOBIC) 15 mg tablet Take 1 tablet by mouth once daily. - Estradiol (ZANDER) 0.0375 mg/24 hr Apply 1 Patch as directed two times a week. - Biocidin Advanced Formula ([employer]) Take 5 Drops by mouth three times daily. - A-EB/H6 (Bright White Formulas) Take 1-2 drops daily, increase to 10 drops per day as tolerated. - Cortisol Masonry Installer 90 ct. ([employer]) Stress, blood sugar, thyroid/hormones/adrenal s/sleep/energy/anxiety Take 1 in AM and 1 before bed - Magnesium (Citrate) 150 mg (Pure Encapsulations) Take 4 capsules daily. - TherBiotic Complete 120 Ct. (more content not included)... Normal [facility] CNOVon 07-01-2024 CNOV Office Visit (OMMS) -------- MARGOT HU ([id number]) 1970 F [facility] Date Time Provider Department 07/01/24 9:15 AM [facility]ANIKA ALVES [facility] During your visit today, we recorded the following information about you: Temperature Pulse Blood pressure Weight 96.4 degrees 66/minute 115/71 73.8 kg Tanika Alves DO 07/01/2024 9:43 AM Signed Please note the following after treatment with Osteopathic Manipulative Treatment: 1. General aching can occur after manipulative treatment for 1-3 days. You may feel nauseous or unwell for a few hours after the treatment, please call if these symptoms persist for more than 24 hours. 2. Please drink an additional 8-16 ounces of water today. This will help reduce the chance of side effects. 3. Please do not engage in heavy lifting or other strenuous activity for 2 days. 4. Please call if you experience new numbness, weakness, or strong or sharp pain. This is not expected after manipulative treatment and should be evaluated. 5. Please minimize sugar, alcohol, and caffeine for the next 24 hours. Please eat a low-protein meal tonight to reduce nitrogen load on your kidneys. 6. Ensure you are getting adequate sleep; sleep is the time when your body does most of its healing. As a general rule, 7 hours of sleep per night is usually adequate. If you have any further questions or would like clarification on the above instructions, please call our office at [phone]. A message will be left with our physician staff and we will return your phone call as soon as possible. Please leave a current phone number to reach you back. If you need to cancel an appointment, it is important to make our office aware 24-48 hours before cancelling, for us to reschedule that appointment for you. You can call our appointment line at [phone] and press option number 1 to leave a message. Please leave a current phone number to reach you back. Tanika Alves DO 07/01/2024 9:49 AM Signed Osteopathic Neuromusculoskeletal Medicine Progress Note Name: Margot Hu Date of : 1970 PCP: Ama Hamilton MD Date of Exam: July 01, 2024 This note was completed using [employer] AI Scribe; use of the scribe was explained to the patient who gave verbal consent to use of an AI scribe. 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 Margot reports right axillary pain that began as intermittent pangs in March and significantly worsened at the end of April. The pain radiates along the path of the serratus anterior muscle and is associated with tenderness in the axillary region. She describes the pain as severe, stating it felt like her bra was attacking her while driving to work. The pain is exacerbated by pressure, such as during an ultrasound, and is not relieved by breath. She denies any issues with breathing. A diagnostic mammogram and ultrasound were performed, both of which were reportedly normal. She also visited urgent care for a fever, during which the axillary pain was noted to be severe. Additionally, Margot reports a recent onset of right shoulder pain that began suddenly five days before a scheduled rock climbing trip during spring. She woke up with an inability to abduct her arm without sharp pain in the posterior shoulder. The pain does not affect her ability to flex or extend the arm and does not disturb her sleep. She took meloxicam, which provided relief. Margot has a history of hamstring tendinopathy and bursitis, for which she received an injection in March. She reports significant improvement in her symptoms, stating she can sit without pain. However, she still experiences mild discomfort in the tendon, particularly during yoga. She is working on hamstring lengthening exercises. She also mentions a history of hip flexor pain and deep glute syndrome, which were alleviated by the injection. She has been taking meloxicam for these conditions but reports it was ineffective prior to the injection. Medical, surgical, and family histories reviewed. Allergies and social history reviewed. Review of Systems: Musculoskeletal: (+) right armpit pain, (+) right shoulder pain, (+) hamstring tightness, (+) tendon pain OBJECTIVE BP 115/71 Pulse 66 Temp (Src) 96.4 (Temporal) Wt 162 lb 11.2 oz (73.8kg) LMP 10/25/19 (more content not included)... Normal [facility] Osteopathic manipulative dominic atment (OMT)on 07-01-2024 Tanika Alves DO 07/01/2024 9:49 AM Osteopathic manipulative treatment (OMT) Time/Date:07/01/2024 9:47 AM Informed Consent Consent Obtained: Verbal Acworth Protocol A moment to CARE was completed. SIGN IN Special Equipment: N/A Patient/Surrogate Stated/Verified: Patient name, Date of and Intended procedure TIME OUT Consent documented and matches the intended procedure. Consent Obtained:Verbal Body Regions: Head, Cervical, Thoracic, Ribs, Lumbar, Sacrum, Pelvis and Upper Extremities Head Technique: balanced ligamentous tension Cervical Technique: balanced ligamentous tension Thoracic Technique: facilitated positional release Ribs Technique: counterstrain and still technique Lumbar Technique: myofascial release Sacrum Technique: myofascial release Pelvis Technique: myofascial release Upper Extremeties Technique: soft tissue Number of Body Regions: 7- 8 Disposition: Osteopathic manipulation tolerated well, reports subjective and objective improvement, improvement in range of motion and mechanics, instructed to increase hydration for the next 24 hours and instructed to follow up if symptoms worsen or fail to improve [facility] Bilat Brst Alphonse Stand Aloneo n 06-25-2024 Bilat Brst Alphonse Stand Alone [facility] [address] [place] [id number] Bilat Brst Alphonse Stand Alone MR#: [id number] Acct: [id number] Name: MARGOT RITTER Rep #: [id number] : 1970 F 53 From: Lyssa Quiros MD PCP: Dr. Ama Hamilton MD Status: REG CL Study: Bilat Brst Alphonse Stand Alone Date of Exam: 05/20 Exam# [id number] Ordering Dr: Ama Hamilton MD EXAM: DIAG MAMM W/CAD, BILAT; BREAST LIMITED UNILATERAL; BILAT BRST ALPHONSE STAND ALONE 06/25/2024 CLINICAL HISTORY: F, Age 53 y/o , LEFT AXILLARY PAIN; LEXT AXILLARY PAIN; PAIN TECHNIQUE: Bilateral Diagnostic digital breast tomosynthesis with 2D and 3D images. Computer aided detection. Also, targeted left breast ultrasound was performed. COMPARISON: Prior exam(s) dated 08/15/2023, 08/03/2022. FINDINGS: MAMMOGRAM: TISSUE DENSITY: The breast tissue is heterogenously dense, which may obscure small masses. The mammogram demonstrates that the patient has dense breasts. Supplemental screening with whole breast ultrasound or MRI may be considered for further evaluation. Bilateral Breast Mammographic Findings: The patient presents with left axillary in the upper outer quadrant breast pain. On the present examination, there are no mammographic abnormalities in the upper-outer left breast and left axilla to account for the patient's pain. Otherwise, there are no suspicious masses, grouped calcifications or architectural distortions in either breast. ULTRASOUND: Targeted ultrasound performed of the left upper outer quadrant and left axilla demonstrate no suspicious sonographic findings. BI/Bilat Brst Alphonse Stand Alone IMPRESSION: 1. There are no suspicious mammographic or sonographic findings in the area of patient's reported pain in the left breast and left axilla. Clinical management is recommended for the pain. 2. There is no evidence of malignancy in either breast. Right Breast: BIRADS 1 NEGATIVE. Left Breast: BIRADS 1 NEGATIVE. OVERALL FINAL ASSESSMENT: BIRADS 1 NEGATIVE. RECOMMENDATION: Routine annual follow-up in 1 Year A letter with findings and recommendations will be mailed to the patient. Reading Location: [facility] CC: Dr. Ama Hamilton MD Auto Bench Mechanic: Signed Normal [facility] Breast Limited Unilateralon 06-25-2024 Breast Limited Unilateral [facility] [address] [place] [id number] Breast Limited Unilateral MR#: [id number] Acct: [id number] Name: MARGOT RITTER Rep #: [id number] : 1970 F 53 From: Lyssa Quiros MD PCP: Dr. Ama Hamilton MD Status: [facility] CL Study: Breast Limited Unilateral Date of Exam: Exam# [id number] Ordering Dr: Ama Hamilton MD EXAM: DIAG MAMM W/CAD, BILAT; BREAST LIMITED UNILATERAL; BILAT BRST ALPHONSE STAND ALONE 06/25/2024 CLINICAL HISTORY: F, Age 53 y/o , LEFT AXILLARY PAIN; LEXT AXILLARY PAIN; PAIN TECHNIQUE: Bilateral Diagnostic digital breast tomosynthesis with 2D and 3D images. Computer aided detection. Also, targeted left breast ultrasound was performed. COMPARISON: Prior exam(s) dated 08/15/2023, 08/03/2022. FINDINGS: MAMMOGRAM: TISSUE DENSITY: The breast tissue is heterogenously dense, which may obscure small masses. The mammogram demonstrates that the patient has dense breasts. Supplemental screening with whole breast ultrasound or MRI may be considered for further evaluation. Bilateral Breast Mammographic Findings: The patient presents with left axillary in the upper outer quadrant breast pain. On the present examination, there are no mammographic abnormalities in the upper-outer left breast and left axilla to account for the patient's pain. Otherwise, there are no suspicious masses, grouped calcifications or architectural distortions in either breast. ULTRASOUND: Targeted ultrasound performed of the left upper outer quadrant and left axilla demonstrate no suspicious sonographic findings. US/Breast Limited Unilateral IMPRESSION: 1. There are no suspicious mammographic or sonographic findings in the area of patient's reported pain in the left breast and left axilla. Clinical management is recommended for the pain. 2. There is no evidence of malignancy in either breast. Right Breast: BIRADS 1 NEGATIVE. Left Breast: BIRADS 1 NEGATIVE. OVERALL FINAL ASSESSMENT: BIRADS 1 NEGATIVE. RECOMMENDATION: Routine annual follow-up in 1 Year A letter with findings and recommendations will be mailed to the patient. Reading Location: [facility] CC: Dr. Ama Hamilton MD Auto Bench Mechanic: Signed Normal [facility] Breast imaging reportOrdered By: Lyssa Quiros on 06-25-2024 Study report [facility] [address] [place] [address] DIAG MAMM W/CAD, BILAT MR#: [id number] Acct: [id number] Name: MARGOT RITTER Rep #: [id number] : 1970 F 53 From: Malaika Quiros MD PCP: Dr. Ama Hamilton MD Status: R EG CLI Study:DIAG MAMM W/CAD, BILAT Date of Exam: 06/25/24 Exam# [id number] Ordering Dr: Daysi Hamilton MD EXAM: DIAG MAMM W/CAD, BILAT; BREAST LIMITED UNILATERAL; BILAT BRST ALPHONSE STAND ALONE 06/25/2024 CLINICAL HISTORY: F, Age 53 y/o , LEFT AXILLARY PAIN; LEXT AXILLARY PAIN; PAIN TECHNIQUE: Bilateral Diagnostic digital breast tomosynthesis with 2D and 3D images. Computer aided detection. Also, targeted left breast ultrasound was performed. COMPARISON: Prior exam(s) dated 08/15/2023, 08/03/2022. FINDINGS: MAMMOGRAM: TISSUE DENSITY: The breast tissue is heterogenously dense, which may obscure small masses. The mammogram demonstrates that the patient has dense breasts. Supplemental screening with whole breast ultrasound or MRI may be considered for further evaluation. Bilateral Breast Mammographic Findings: The patient presents with left axillary in the upper outer quadrant breast pain. On the present examination, there are no mammographic abnormalities in the upper-outer left breast and left axilla to account for the patient's pain. Otherwise, there are no suspicious masses, grouped calcifications or architectural distortions in either breast. ULTRASOUND: Targeted ultrasound performed of the left upper outer quadrant and left axilla demonstrate no suspicious sonographic findings. BI/DIAG MAMM W/CAD, BILAT IMPRESSION: 1. There are no suspicious mammographic or sonographic findings in the area of patient's reported pain in the left breast and left axilla. Clinical management is recommended for the pain. 2. There is no evidence of malignancy in either breast. Right Breast: BIRADS 1 NEGATIVE. Left Breast: BIRADS 1 NEGATIVE. OVERALL FINAL ASSESSMENT: BIRADS 1 NEGATIVE. RECOMMENDATION: Routine annual follow-up in 1 Year A letter with findings and recommendations will be mailed to the patient. Reading Location: [facility] CC: Dr. Ama Hamilton MD ~ Auto Bench Mechanic: Signed [facility] Study report [facility] Imaging Services [address] [place], [place] [address] Bilat Brst Alphonse Stand Alone MR#: [id number] Acct: [id number] Name: PRISCILLASANJANA FRITZMARGOT WALTER Rep #: [id number] : 1970 F 53 From: Malaika Quiros MD PCP: Dr. Ama Hamilton MD Status: R EG CLI Study:Bilat Brst Alphonse Stand Alone Date of Exa m: 06/25/24 Exam# [id number] Ordering Dr: Daysi Hamilton MD EXAM: DIAG MAMM W/CAD, BILAT; BREAST LIMITED UNILATERAL; BILAT BRST ALPHONSE STAND ALONE 06/25/2024 CLINICAL HISTORY: F, Age 53 y/o , LEFT AXILLARY PAIN; LEXT AXILLARY PAIN; PAIN TECHNIQUE: Bilateral Diagnostic digital breast tomosynthesis with 2D and 3D images. Computer aided detection. Also, targeted left breast ultrasound was performed. COMPARISON: Prior exam(s) dated 08/15/2023, 08/03/2022. FINDINGS: MAMMOGRAM: TISSUE DENSITY: The breast tissue is heterogenously dense, which may obscure small masses. The mammogram demonstrates that the patient has dense breasts. Supplemental screening with whole breast ultrasound or MRI may be considered for further evaluation. Bilateral Breast Mammographic Findings: The patient presents with left axillary in the upper outer quadrant breast pain. On the present examination, there are no mammographic abnormalities in the upper-outer left breast and left axilla to account for the patient's pain. Otherwise, there are no suspicious masses, grouped calcifications or architectural distortions in either breast. ULTRASOUND: Targeted ultrasound performed of the left upper outer quadrant and left axilla demonstrate no suspicious sonographic findings. BI/Bilat Brst Alphonse Stand Alone IMPRESSION: 1. There are no suspicious mammographic or sonographic findings in the area of patient's reported pain in the left breast and left axilla. Clinical management is recommended for the pain. 2. There is no evidence of malignancy in either breast. Right Breast: BIRADS 1 NEGATIVE. Left Breast: BIRADS 1 NEGATIVE. OVERALL FINAL ASSESSMENT: BIRADS 1 NEGATIVE. RECOMMENDATION: Routine annual follow-up in 1 Year A letter with findings and recommendations will be mailed to the patient. Reading Location: [facility] CC: Dr. Ama Hamilton MD ~ Auto Bench Mechanic: Signed [facility] DIAG MAMM W/CAD, BILATon DIAG MAMM W/CAD, BILAT [facility] Imaging Services [address] [place], [place] [address] DIAG MAMM W/CAD, BILAT MR#: [id number] Acct: [id number] Name: MARGOT RITTER Rep #: [id number] : 1970 F 53 From: Lyssa Quiros MD PCP: Dr. Ama Hamilton MD Status: REG CLI Study: DIAG MAMM W/CAD, BILAT Date of Exam: 06/25/24 Exam# [id number] Ordering Dr: Ama Hamilton MD EXAM: DIAG MAMM W/CAD, BILAT; BREAST LIMITED UNILATERAL; BILAT BRST ALPHONSE STAND ALONE 06/25/2024 CLINICAL HISTORY: F, Age 53 y/o , LEFT AXILLARY PAIN; LEXT AXILLARY PAIN; PAIN TECHNIQUE: Bilateral Diagnostic digital breast tomosynthesis with 2D and 3D images. Computer aided detection. Also, targeted left breast ultrasound was performed. COMPARISON: Prior exam(s) dated 08/15/2023, 08/03/2022. FINDINGS: MAMMOGRAM: TISSUE DENSITY: The breast tissue is heterogenously dense, which may obscure small masses. The mammogram demonstrates that the patient has dense breasts. Supplemental screening with whole breast ultrasound or MRI may be considered for further evaluation. Bilateral Breast Mammographic Findings: The patient presents with left axillary in the upper outer quadrant breast pain. On the present examination, there are no mammographic abnormalities in the upper-outer left breast and left axilla to account for the patient's pain. Otherwise, there are no suspicious masses, grouped calcifications or architectural distortions in either breast. ULTRASOUND: Targeted ultrasound performed of the left upper outer quadrant and left axilla demonstrate no suspicious sonographic findings. BI/DIAG MAMM W/CAD, BILAT IMPRESSION: 1. There are no suspicious mammographic or sonographic findings in the area of patient's reported pain in the left breast and left axilla. Clinical management is recommended for the pain. 2. There is no evidence of malignancy in either breast. Right Breast: BIRADS 1 NEGATIVE. Left Breast: BIRADS 1 NEGATIVE. OVERALL FINAL ASSESSMENT: BIRADS 1 NEGATIVE. RECOMMENDATION: Routine annual follow-up in 1 Year A letter with findings and recommendations will be mailed to the patient. Reading Location: [id number] CC: Dr. Ama Hamilton MD Auto Bench Mechanic: Signed Normal [facility] Internal Medicine Office Vis itodarnell 06-05-2024 Internal Medicine Office Visit [facility] [address] [place] [address] [place] [address] OFFICE VISIT Date of Service: 06/05/24 MR#: [id number] Acct: [id number] Name: MARGOT HU Rep #: [id number] : 1970 Provider: Dr. Ama duff MD Age/Sex: 53/F Location: [facility] Status: Signed Intake Vital Signs 06/06/23 17:04 03/05/24 07:28 06/05/24 17:09 Height 5 ft 11 in 5 ft 11 in 5 ft 11 in Weight: 159 lb BMI 22.1 BP 110/70 Blood Pressure Location Lt brachial Position Sitting Respiration 16 Pulse 85 Pulse Source Monitor Temp 97.9 F Temp Source Temporal Pulse Oximetry (%) 99 Oxygen Delivery Method room air Intake Visit Reasons: 1 Y FU Chief Complaint: Follow-up/yearly Manager Systems Required: No Is patient in pain?: No Allergies naproxen sodium (From Aleve) Allergy (Severe, Verified 06/05/24 16:56) Hives Penicillins (PCN) Allergy (Unknown, Verified 06/05/24 16:56) Unknown midodrine Allergy (Verified 06/05/24 16:56) Rash Sulfa (Sulfonamide Antibiotics) Adverse Reaction (Severe, Verified 06/05/24 16:56) Other Medications ???Medication ???Instructions ???Recorded ???Confirmed ???Type multivitamin,tx-iron-min erals 27 1 tab PO DAILY 01/29/17 06/05/24 H istory mg-0.4 mg tablet krill 1,000 mg-omega-3 170 mg-dha 1 cap PO BID 04/19/17 06/05/24 Hi story 50 mg-epa 80 sm-gclofz-opbzw capsule (krill oil) cholecalciferol (vitamin D3) 125 5,000 unit PO DAILY 04/03/1906/05 History mcg (5,000 unit) disintegrating tablet magnesium 30 mg tablet 30 mg PO DAILY 04/15/20 06/05/24 H istory melatonin 10 mg capsule 5 mg PO HS 04/15/20 06/05/24 Histo ry estradiol 0.05 mg/24 hr semiweekly 1 patch transdermal 2XW #24 ea 0 07/30/23 06/05/24 Rx transdermal patch (Vivelle-Dot) gabapentin 300 mg capsule 300 mg PO QHS #90 caps 11/21/23 Rx medroxyprogesterone 2.5 mg tablet 2.5 mg PO DAILY 11/21/23 06/05/24 History meloxicam 7.5 mg tablet 7.5 mg PO BID PRN 06/05/24 Histor y PFSH Medical History (Updated 06/05/24 @ 19:[address] Ama Hamilton MD) Pain in left axilla Allergies Tinnitus of both ears Wears contact lenses Post-menopausal Open wound Non-smoker History of stress test History of echocardiogram Cardiology follow-up encounter PONV (postoperative nausea and vomiting) Tinnitus Preventative health care Dermatitis Cellulitis Menopausal hot flushes Anxiety SIBO Gastroenteritis IBS (irritable bowel syndrome) Goiter POTS (postural orthostatic tachycardia syndrome) Surgical History (Updated 06/05/24 @ 17:02 by Tammi Crawley MA) S/P cervical polypectomy History of thyroid surgery hemangeoma left elbow Mucinous cystadenoma of right ovary Tendinopathy of right gluteal region Tendinopathy of left gluteus medius History of arthroscopy of left knee History of section History of tonsillectomy History of appendectomy left knee scope hemangeoma left elbow Right Mucinous Cystadenoma left glute medius tenson repair right glute medius tendon repair left knee scope History of History of tonsillectomy History of appendectomy Family History Mother Heart disease Hypertension Father Hypertension Arthritis Anxiety Hyperlipemia Grandfather Myocardial infarction, Onset Age: 60 Aunt Myocardial infarction, Onset Age: 75 CLL (chronic lymphocytic leukemia) Social History (Updated 06/05/24 @ 17:04 by Tammi Crawley MA) adopted: No household members: spouse number of children: 2 current occupational status: employed current occupation: [employer] pets and animals: Yes (1) pets and animals: dog(s) sexually active: Yes Smoking Status: Never smoker alcohol intake: current alcohol intake frequency: holidays/special occasions only substance use type: does not use diet: gluten free and lactose free caffeine: Yes (3) Type: coffee what type of physical activity do you participate in: walking, yoga and aerobics frequency: 5-6 times per week do you feel safe at home: Yes HPI HPI Chief Complaint: Follow-up/yearly Details: MARGOT HU, is a 53 F who presents to the office today for yearly visit. Also has some concerns. A few weeks ago, she states that she developed sudden onset sharp prickly pain in her left armpit/axilla. Pain became much worse following a viral illness, was seen at an urgent care and had testing including CRP which was within range. Still has intermittent shooting pain in the axillary area. No swelling or palpable abnormality. Last mammogram was in July 2023, no concerns noted. She reports recurrent upper respiratory infection and congestion. Has been using Nasonex and OTC antiallergies which helps but not (more content not included)... Normal [facility] CNOVon 05-28-2024 CNOV Office Visit (SPRTSO ) -------- FRITZMARGOT Luis ([id number]) 1970 F [facility] Date Time Provider Department 05/28/24 8:15 AM SARAH WYNN During your visit today, we recorded the following information about you: Sarah Wynn MD 05/28/2024 8:22 AM Signed DEPARTMENT OF ORTHOPAEDICS May 28, 2024 CC: right hip follow up HPI: Patient returns for reevaluation of her right hip. She has had significant relief from the ischial bursa injection. She does have some additional medial complaints just medial to the ischial bursa on the ischium otherwise she is very happy with her improvement. Denies any interim trauma. She would like to return to hiking. PAIN EVALUATION 05/27/2024195205/28/2024 0808 Pain Level: 1 -- Pain Location: Buttocks-Right Hip-Right Description: Dull -- Duration Units: Months -- Frequency: Intermittent -- Intervention/Comfort measure: Reposition -- Past Medical History: PAST MEDICAL HISTORY Diagnosis Date Goiter IBS (irritable bowel syndrome) POTS (postural orthostatic tachycardia syndrome) Raynaud's phenomenon Family History: FAMILY HISTORY Problem Relation Age of Onset other (htn) Father other (htn) Mother other (DM) Mother other (CLL) Maternal Aunt Ischemic Heart Disease Maternal Grandfather other (HOCM) Maternal Aunt Social History: Medications: meloxicam (MOBIC) 15 mg tablet Take 1 tablet by mouth once daily. Estradiol (ZANDER) 0.0375 mg/24 hr Apply 1 Patch as directed two times a week. Biocidin Advanced Formula ([employer]) Take 5 Drops by mouth three times daily. A-EB/H6 (Bright White Formulas) Take 1-2 drops daily, increase to 10 drops per day as tolerated. Cortisol Masonry Installer 90 ct. ([employer]) Stress, blood sugar, thyroid/hormones/adrenal s/sleep/energy/anxiety Take 1 in AM and 1 before bed Magnesium (Citrate) 150 mg (Pure Encapsulations) Take 4 capsules daily. TherBiotic Complete 120 Ct. (Klaire/Prothera) Take 1 capsule by mouth once daily. Vitamin D3 5000 U (Pure Encapsulations) Take 1 capsule by mouth daily with food. melatonin 1 mg tablet Take 1 mg by mouth daily at bedtime. MULTIVIT-MINERALS/FERROU S FUM (MULTI VITAMIN ORAL) Take by mouth once daily. ERGOCALCIFEROL, VITAMIN D2, (VITAMIN D ORAL) Take 1,000 Units by mouth once daily. VITAMIN B COMPLEX (B COMPLEX ORAL) Take 2 tablets by mouth once daily. oseltamivir (TAMIFLU) 75 mg capsule Take 1 capsule by mouth two times a day for 5 days. Allergies: ALLERGIES Allergen Reactions Sulfamethoxazole-Tr* Unknown Aleve [Naproxen] Hives Bactrim [Sulfametho* Other: See Comments Swollen joints Lactose Intolerance* Other: See Comments Gastric problems, swelling of lymph nodes Midodrine Rash Penicillins Unknown Childhood reaction. Physical Exam: Musculoskeletal Exam: Gait normal, Posture: erect and normal. Exam: Right Left Single Leg Trendelenburg Negative Negative Hip flexion 110 110 IR 20 20 ER 60 60 Anterior impingement negative negative Dynamic labral stress negative negative BERLIN negative negative Posterior Impingement negative negative DHIRAJ negative negative Strength Right Left Supine HF 5/5 5/5 Upright HF 5/5 5/5 Adduction 5/5 5/5 Abduction 5/5 5/5 Tenderness with Palpation: Right Left Greater Troch Positive Negative Gluteus Medius Negative Negative Piriformis Negative Negative She has not no tenderness on the ischium. She has 5/5 strength with resisted knee flexion at 90 and 45 degrees. She does have reproducible pain when she fires her hamstring in full extension. She has mild pain just medial to the hamstring insertion. Review of Systems: GENERAL: No weight loss, malaise or fevers MUSCULOSKELETAL: See HPI Imaging: Assessment/Plan: Improved right ischial bursitis Plan for the patient reviewed. Patient dropped off her MRI to our office which I have not seen yet. I will need to do this. This was done over a year ago. She has had very good relief from the injection. Will continue to monitor the response and reassess in 2 months. If her symptoms recur we would likely repeat MRI and possibly consider ultrasound with focused depending on what I see on her imaging. This could include proximal hamstring insertion this can include ischiofemoral space. This could include sciatic nerve. She voiced understanding agreement with the plan. All questions answered today. Sarah Wynn MD This note was partially generated using BeehiveID voice recognition system, and there may be some incorrect words, spellings, and punctuation that were not noted in checking the note before saving. Medical Decision Making: Medical Decision Making Level: 1 - N/A Allergies As of Date: 05/28/2024 Noted Allergy Reaction SULFAMETHOXAZOLE-TRIMETH OPRIM 04/11/2012 16 - Unknown ALEVE (NAPROXEN) 02/27/2013 4 - Hives BACTRIM (SULFAMETHOXAZOLE) 02/27 (more content not included)... Normal [facility] CBC W Auto Differential pane l (Bld)on 05-27-2024 Basophils (Bld) [#/Vol] 0.04 10*3/uL [facility] Basophils/100 WBC (Bld) 0.8 % C [facility] Differential cell count method Nom (Bld) Auto [facility] Eosinophils (Bld) [#/Vol] 0.08 10*3/uL [facility] Eosinophils/100 WBC (Bld) 1.6 % [facility] Erythrocyte distribution width (RBC) [Ratio] 13.1 % 11.5 - 15.0 % [facility] Hematocrit (Bld) [Volume fraction] 41.8 % 36.0 - 46.0 % [facility] Hemoglobin (Bld) [Mass/Vol] 14.1 g/dL 11.5 - 15.5 g/dL [facility] Immature granulocytes (Bld) [#/Vol] [facility] Immature granulocytes/100 WBC (Bld) 0.4 % [facility] Lymphocytes (Bld) [#/Vol] 1.62 10*3/uL [facility] Lymphocytes/100 WBC (Bld) 32 % [facility] MCH (RBC) [Entitic mass] 32.6 pg 26.0 - 34.0 pg [facility] MCHC (RBC) [Mass/Vol] 33.7 g/dL 30.5 - 36.0 g/dL [facility] MCV (RBC) [Entitic vol] 96.5 fL 80.0 - 100.0 fL [facility] Monocytes (Bld) [#/Vol] 0.41 10*3/uL [facility] Monocytes/100 WBC (Bld) 8.1 % C [facility] Neutrophils (Bld) [#/Vol] 2.89 10*3/uL [facility] Neutrophils/100 WBC (Bld) 57.1 % [facility] Nucleated RBC (Bld) [#/Vol] [facility] Nucleated RBC/100 WBC (Bld) [Ratio] 0 % /100 WBC [facility] Platelet mean volume (Bld) [Entitic vol] 10 fL 9.0 - 12.7 fL [facility] Platelets (Bld) [#/Vol] 343 10*3/uL [facility] RBC (Bld) [#/Vol] 4.33 10*6/uL 3.90 - 5.2 0 m/uL [facility] WBC (Bld) [#/Vol] 5.06 10*3/uL [facility] Basophils (Bld) [#/Vol] 0.04 10*3/uL Normal <0.11 [facility] Comment on above: Order Comment: Speci men Type: BLOOD SPECIMENOrdering Facility: [facility] Address: [address] [place] [address] Performed By: #### 4 537-7 ####[facility] LABCLIA [id number] [place] [address] [place]#### 64835-1 ####[facility] MILL[facility]OWNCL[facility] [id number] [place] [address] [place] Basophils/100 WBC (Bld) 0.8 % Normal [facility] Comment on above: Order Comment: Speci men Type: BLOOD SPECIMENOrdering Facility: [facility] Address: [address] [place] [address] Performed By: #### 4 537-7 ####[facility] LABCLIA [id number] [place] [address] [place]#### 60171-9 ####[facility] MILLWNCLIA [id number] [place] [address] [place] Differential cell count method Nom (Bld) Auto Normal [facility] Comment on above: Order Comment: Speci men Type: BLOOD SPECIMENOrdering Facility: [facility] Address: [address] [place] [address] Performed By: #### 4 537-7 ####[facility] LABCLIA [id number] [place] [address] [place]#### 94860-1 ####[facility] [id number] [place] [address] [place] Eosinophils (Bld) [#/Vol] 0.08 10*3/uL Normal <0.46 [facility] Comment on above: Order Comment: Speci men Type: BLOOD SPECIMENOrdering Facility: [facility] Address: [address] [place] [address] Performed By: #### 4 537-7 ####[facility] LABCLIA [id number] [place] [address] [place]#### 23549-0 ####[facility] [id number] [place] [address] [place] Eosinophils/100 WBC (Bld) 1.6 % Normal [facility] Comment on above: Order Comment: Speci men Type: BLOOD SPECIMENOrdering Facility: [facility] Address: [address] [place] [address] Performed By: #### 4 537-7 ####[facility] LABCLIA [id number] [place] [address] [place]#### 67493-3 ####[facility] [id number] [place] [address] [place] Erythrocyte distribution width (RBC) [Ratio] 13.1 % Normal 11.5-15.0 [facility] Comment on above: Order Comment: Speci men Type: BLOOD SPECIMENOrdering Facility: [facility] Address: [address] [place] [address] Performed By: #### 4 537-7 ####[facility] LABCLIA [id number] [place] [address] [place]#### 33094-2 ####[facility]ILL[facility] [id number] [place] [address] [place] Hematocrit (Bld) [Volume fraction] 41.8 % Normal 36.0-46.0 [facility] Comment on above: Order Comment: Speci men Type: BLOOD SPECIMENOrdering Facility: [facility] Address: [address] [place] [address] Performed By: #### 4 537-7 ####[facility] LABCLIA [id number] [place] [address] [place]#### 53731-8 ####[facility] B[facility]ARDNCLIA [id number] [place] [address] [place] Hemoglobin (Bld) [Mass/Vol] 14.1 g/dL Normal 11.5-15.5 [facility] Comment on above: Order Comment: Speci men Type: BLOOD SPECIMENOrdering Facility: [facility] Address: [address] [place] [address] Performed By: #### 4 537-7 ####[facility] LABCLIA [id number] [place] [address] [place]#### 88755-5 ####[facility] [id number] [place] [address] [place] Immature granulocytes (Bld) [#/Vol] 10*3/uL Normal <0.10 [facility] Comment on above: Order Comment: Speci men Type: BLOOD SPECIMENOrdering Facility: [facility] Address: [address] [place] [address] Performed By: #### 4 537-7 ####[facility] LABCLIA [id number] [place] [address] [place]#### 42104-8 ####[facility] [id number] [place] [address] [place] Immature granulocytes/100 WBC (Bld) 0.4 % Normal [facility] Comment on above: Order Comment: Speci men Type: BLOOD SPECIMENOrdering Facility: [facility] Address: [address] [place] [address] Performed By: #### 4 537-7 ####[facility] LABCLIA [id number] [place] [address] [place]#### 21684-2 ####[facility]ENTER[facility] [id number] [place] [address] [place] Lymphocytes (Bld) [#/Vol] 1.62 10*3/uL Normal 1.00-4.00 [facility] Comment on above: Order Comment: Speci men Type: BLOOD SPECIMENOrdering Facility: [facility] Address: [address] [place] [address] Performed By: #### 4 537-7 ####[facility] LABCLIA [id number] [place] [address] [place]#### 64958-3 ####[facility] [id number] [place] [address] [place] Lymphocytes/100 WBC (Bld) 32.0 % Normal [facility] Comment on above: Order Comment: Speci men Type: BLOOD SPECIMENOrdering Facility: [facility] Address: [address] [place] [address] Performed By: #### 4 537-7 ####[facility] LABCLIA [id number] [place] [address] [place]#### 22095-7 ####[facility]ARDNCLIA [id number] [place] [address] [place] MCH (RBC) [Entitic mass] 32.6 pg Normal 26.0-34.0 [facility] Comment on above: Order Comment: Speci men Type: BLOOD SPECIMENOrdering Facility: [facility] Address: [address] [place] [address] Performed By: #### 4 537-7 ####[facility] LABCLIA [id number] [place] [address] [place]#### 85391-9 ####[facility]ILL[facility] [id number] [place] [address] [place] MCHC (RBC) [Mass/Vol] 33.7 g/dL Normal 30.5-36.0 [facility] Comment on above: Order Comment: Speci men Type: BLOOD SPECIMENOrdering Facility: [facility] Address: [address] [place] [address] Performed By: #### 4 537-7 ####[facility] LABCLIA [id number] [address] [place]#### 95685-7 ####[facility]ARD[facility]CLIA [id number] [place] [address] [place] MCV (RBC) [Entitic vol] 96.5 fL Normal 80.0-100.0 C [facility] Comment on above: Order Comment: Speci men Type: BLOOD SPECIMENOrdering Facility: [facility] Address: [address] [place] [address] Performed By: #### 4 537-7 ####[facility] LABCLIA [id number] [address] [place]#### 06357-4 ####[facility] [id number] [place] [address] [place] Monocytes (Bld) [#/Vol] 0.41 10*3/uL Normal <0.87 [facility] Comment on above: Order Comment: Speci men Type: BLOOD SPECIMENOrdering Facility: [facility] Address: [address] [place] [address] Performed By: #### 4 537-7 ####[facility] LABCLIA [id number] [place] [address] [place]#### 98848-6 ####[facility]CLIA [id number] [place] [address] [place] Monocytes/100 WBC (Bld) 8.1 % Normal [facility] Comment on above: Order Comment: Speci men Type: BLOOD SPECIMENOrdering Facility: [facility] Address: [address] [place] [address] Performed By: #### 4 537-7 ####[facility] LABCLIA [id number] [place] [address] [place]#### 27509-4 ####[facility] [id number] [place] [address] [place] [place] Neutrophils (Bld) [#/Vol] 2.89 10*3/uL Normal 1.45-7.50 [facility] Comment on above: Order Comment: Speci men Type: BLOOD SPECIMENOrdering Facility: [facility] Address: [address] [place] [address] Performed By: #### 4 537-7 ####[facility] LABCLIA [id number] [place] [address] [place]#### 88957-6 ####[facility] NASSAUWNCLIA [id number] [place] [address] [place] Neutrophils/100 WBC (Bld) 57.1 % Normal [facility] Comment on above: Order Comment: Speci men Type: BLOOD SPECIMENOrdering Facility: [facility] Address: [address] [place] [address] Performed By: #### 4 537-7 ####[facility] LABCLIA [id number] [place] [address] [place]#### 33066-3 ####[facility] [id number] [place] [address] [place] Nucleated RBC (Bld) [#/Vol] 10*3/uL Normal <0.01 [facility] Comment on above: Order Comment: Speci men Type: BLOOD SPECIMENOrdering Facility: [facility] Address: [address] [place] [address] Performed By: #### 4 537-7 ####[facility] LABCLIA [id number] [place] [address] [place]#### 04342-1 ####[facility] [id number] [place] [address] [place] Nucleated RBC/100 WBC (Bld) [Ratio] 0.0 /100 WBC Normal [facility] Comment on above: Order Comment: Speci men Type: BLOOD SPECIMENOrdering Facility: [facility] Address: [address] [place] [address] Performed By: #### 4 537-7 ####[facility] LABCLIA [id number] [address] STATES [place]#### 66230-7 ####[facility] [id number] [place] [address] [place] Platelet mean volume (Bld) [Entitic vol] 10.0 fL Normal 9.0-12.7 [facility] Comment on above: Order Comment: Speci men Type: BLOOD SPECIMENOrdering Facility: [facility] Address: [address] [place] [address] Performed By: #### 4 537-7 ####[facility] LABCLIA [id number] [place] [address] [place]#### 63254-8 ####[facility] MILLTOWNCLIA [id number] [place] [address] [place] Platelets (Bld) [#/Vol] 343 10*3/uL Normal 150-400 [facility] Comment on above: Order Comment: Speci men Type: BLOOD SPECIMENOrdering Facility: [facility] Address: [address] [place] [address] Performed By: #### 4 537-7 ####[facility] LABCLIA [id number] [place] [address] [place]#### 85967-8 ####[facility] MILLWNCLIA [id number] [place] [address] [place] RBC (Bld) [#/Vol] 4.33 10*6/uL Normal 3.90-5.20 [facility] Comment on above: Order Comment: Speci men Type: BLOOD SPECIMENOrdering Facility: [facility] Address: [address] [place] [address] Performed By: #### 4 537-7 ####[facility] LABCLIA [id number] [place] [address] [place]#### 94398-2 ####[facility] NASSAUWNCLIA [id number] [place] [address] [place] WBC (Bld) [#/Vol] 5.06 10*3/uL Normal 3.70-11.00 [facility] Comment on above: Order Comment: Speci men Type: BLOOD SPECIMENOrdering Facility: [facility] Address: [address] [place] [address] Performed By: #### 4 537-7 ####[facility] LABCLIA [id number] [place] [address] [place]#### 00716-7 ####[facility] BOULEVARDLANCEOfe [id number] [place] [id number] [place] CNOVon 05-27-2024 CNOV Office Visit (UCWSTR ) -------- MARGOT HU ([id number]) 1970 F [facility] Date Time Provider Department 05/27/24 9:45 AM ROSAMARIA KINCAID [facility] During your visit today, we recorded the following information about you: Temperature Pulse Respiration Blood pressure 97.8 degrees 73/minute 18/minute 124/82 Weight 72.8 kg Rosamaria Kincaid PA-C 05/27/2024 12:10 PM Signed This note was created using [email or web address]. Subjective Margot Hu is a 53 year old female. Patient is a 53-year-old female who complains of fever, chills, body aches with mild congestion and slight cough that she has been experiencing for the past 1 day. Patient also reports overall fatigue and weakness. Patient states that she did note an episode of elevated heart rate last evening without palpitations or chest pain. Patient states that she does have a history of POTS. Patient also reports chest wall pain to her left axilla. Patient denies accident or injury and states she has noted no redness or swelling to the area. Patient reports no dyspnea or shortness of breath. Patient does exercise daily. Flu Like Symptoms Associated symptoms include chills, fatigue, a fever and myalgias. Review of Systems Constitutional: Positive for chills, fatigue and fever. Musculoskeletal: Positive for myalgias. All other systems reviewed and are negative. Objective BP 124/82 Pulse 73 Temp 36.6 ?C (97.8 ?F) (Tympanic) Resp 18 Wt 72.8 kg (160 lb 7.9 oz) LMP 10/25/2023 (Exact Date) SpO2 98% BMI 22.38 kg/m? Physical Exam Vitals and nursing note reviewed. Constitutional: Appearance: Normal appearance. She is normal weight. Comments: Patient appears relaxed and comfortable in the exam room chair. Patient demonstrates a high degree of physical fitness. HENT: Head: Normocephalic and atraumatic. Right Ear: Tympanic membrane, ear canal and external ear normal. Left Ear: Tympanic membrane, ear canal and external ear normal. Nose: Nose normal. Mouth/Throat: Mouth: Mucous membranes are moist. Pharynx: Oropharynx is clear. Eyes: Extraocular Movements: Extraocular movements intact. Conjunctiva/sclera: Conjunctivae normal. Pupils: Pupils are equal, round, and reactive to light. Cardiovascular: Rate and Rhythm: Normal rate and regular rhythm. Pulses: Normal pulses. Heart sounds: Normal heart sounds. Pulmonary: Effort: Pulmonary effort is normal. Breath sounds: Normal breath sounds. Musculoskeletal: General: Normal range of motion. Cervical back: Normal range of motion and neck supple. Skin: General: Skin is warm and dry. Capillary Refill: Capillary refill takes less than 2 seconds. Neurological: General: No focal deficit present. Mental Status: She is alert and oriented to person, place, and time. Psychiatric: Mood and Affect: Mood normal. Behavior: Behavior normal. Thought Content: Thought content normal. Judgment: Judgment normal. Assessment and Plan Unremarkable physical exam findings as noted above. Influenza A/B/SARS-CoV-2/RSV PCR was ordered. Patient's heart rate was noted to be 73 bpm with blood pressure 124/82. Outpatient CBC, CMP, CRP, ESR and TSH/T4 were ordered. Patient was advised that she will be contacted once the above results are received. Patient states that she does have an appointment already scheduled to see her primary care physician next week. Patient was very clearly advised to report to an emergency department if she notes any worsening tachycardia or if she develops associated palpitations, chest pain or other concerning symptoms. Patient was otherwise advised that it is highly probable that she is developing influenza and she was provided with a prescription for Tamiflu 75 mg. Additional supportive care was discussed and the patient verbalizes excellent understanding of same. CLINICAL IMPRESSION: Influenza; History of POTS ASSESSMENT/PLAN: 1. Influenza - ICD9: 487.1, ICD10: J11.1 (primary diagnosis) - COVID AND INFLUENZA A/B AND RSV PCR, ROUTINE - OSELTAMIVIR 75 MG CAPSULE 2. POTS (postural orthostatic tachycardia syndrome) - ICD9: 427.89, ICD10: G90.A - COMPLETE BLOOD COUNT AND DIFFERENTIAL - COMPREHENSIVE METABOLIC PANEL - SEDIMENTATION RATE, WESTERGREN - C-REACTIVE PROTEIN - TSH W/REFLEX FT4 Rosamaria Kincaid PA-C Allergies As of Date: 05/27/2024 Noted Allergy Reaction SULFAMETHOXAZOLE-TRIMETH OPRIM 04/11/2012 16 - Unknown ALEVE (NAPROXEN) 02/27/2013 4 - Hives BACTRIM (SULFAMETHOXAZOLE) 02/27/2013 14 - Other: See Comments Comments: Swollen joints LACTOSE INTOLERANCE (LACTASE) 02/27/2013 14 - Other: See Comments Comments: Gastric problems, swelling of lymph nodes MIDODRINE 06/01/2015 2 - Rash PENICILLINS 02/27/2013 16 - Unknown Comments: Childhood reaction. Date Reviewed: 05/27/2024 Reviewed by: Lexi Agudelo LPN - Fully Assessed Reason for Visit: Flu Like Sy (more content not included)... Normal [facility] CRP SerPl-mCncon 05-27-2024 CRP [Mass/Vol] mg/L Normal <0.9 [facility] Comment on above: Order Comment: Speci men Type: BLOOD SPECIMENOrdering Facility: [facility] Address: [address] [place] [address] Performed By: #### July [facility], 1989-07 ####[employer] [facility] LABORATORYCLIA [id number] [address] STATES OF [facility] Comprehensive metabolic 2000 panelon 05-27-2024 Albumin [Mass/Vol] 4.8 g/dL Normal 3.9-4.9 [facility] Comment on above: Order Comment: Speci men Type: BLOOD SPECIMENOrdering Facility: [facility] Address: [address] [place] [address] Performed By: #### July [facility], 1989-07 ####[employer] [facility] LABORATORYCLIA [id number] [address] [place] ALP [Catalytic activity/Vol] 60 U/L Normal 34-123 [facility] Comment on above: Order Comment: Speci men Type: BLOOD SPECIMENOrdering Facility: [facility] Address: [address] [place] [address] Performed By: #### T JULIO CESAR, 1989-07 ####[facility]ORATORYCLIA [id number] [place] [address] [place] ALT With P-5'-P [Catalytic activity/Vol] 27 U/L Normal 7-38 [facility] Comment on above: Order Comment: Speci men Type: BLOOD SPECIMENOrdering Facility: [facility] Address: [address] [place] [address] Performed By: #### T JULIO CESAR, , 1989-07 ####[facility] LABORATORYCLIA [id number] [place] [address] [place] Anion gap [Moles/Vol] 10 mmol/L Normal 8-15 [facility] Comment on above: Order Comment: Speci men Type: BLOOD SPECIMENOrdering Facility: [facility] Address: [address] [place] [address] Performed By: #### July HARRELL, 1989-07 ####[facility] LABORATORYCLIA [id number] [place] [address] [place] AST With P-5'-P [Catalytic activity/Vol] 28 U/L Normal 13-35 [facility] Comment on above: Order Comment: Speci men Type: BLOOD SPECIMENOrdering Facility: [facility] Address: [address] [place] [address] Performed By: #### July HARRELL, 1989-07 ####[facility] LABORATORYCLIA [id number] [place] [address] [place] Bilirubin [Mass/Vol] 1.0 mg/dL Normal 0.2-1.3 [facility] Comment on above: Order Comment: Speci men Type: BLOOD SPECIMENOrdering Facility: [facility] Address: [address] [place] [address] Performed By: #### July HARRELL, 1989-07 ####[facility] LABORATORYCLIA [id number] [place] [address] [place] Calcium [Mass/Vol] 10.0 mg/dL Normal 8.5-10.2 [facility] Comment on above: Order Comment: Speci men Type: BLOOD SPECIMENOrdering Facility: [facility] Address: [address] [place] [address] Performed By: #### July HARRELL, 1989-07 ####[employer] [facility] LABORATORYCLIA [id number] [place] [address] [place] Chloride [Moles/Vol] 103 mmol/L Normal 98-107 [facility] Comment on above: Order Comment: Speci men Type: BLOOD SPECIMENOrdering Facility: [facility] Address: [address] [place] [address] Performed By: #### July HARRELL, 1989-07 ####[employer] [facility] LABORATORYCLIA [id number] [place] [id number] [place] CO2 [Moles/Vol] 29 mmol/L Normal 22-30 [facility] Comment on above: Order Comment: Speci men Type: BLOOD SPECIMENOrdering Facility: [facility] Address: [address] [place] [address] Performed By: #### July HARRELL, 1989-07 ####[facility] LABORATORYCLIA [id number] [place] [id number] [place] Creatinine [Mass/Vol] 0.88 mg/dL Normal 0.58-0.96 [facility] Comment on above: Order Comment: Speci men Type: BLOOD SPECIMENOrdering Facility: [facility] Address: [address] [place] [address] Performed By: #### July HARRELL, 1989-07 ####[employer] LABORATORYCLIA [id number] [place] [id number] [place] Creatinine and Glomerular filtration rate.predicted panel (S/P/Bld) 78 mL/min/1.73m??? Normal >=60 [facility] Comment on above: Order Comment: Speci men Type: BLOOD SPECIMENOrdering Facility: [facility] Address: [address] [place] [address] Result Comment: Haylie mated Glomerular Filtration Rate (eGFR) is calculated using the 2020 CKD-EPI creatinine equation. This equation utilizes serum creatinine, sex, and age as parameters. The creatinine assay has traceable calibration to isotope dilution-mass spectrometry. Refer to KDIGO guidelines for clinical interpretation. In patients with unstable renal function, e.g. those with acute kidney injury, the eGFR may not accurately reflect actual GFR. Performed By: #### T [facility], , 1989-07 ####[facility]RAX[facility] LABORATORYCLIA [id number] [place] [id number] [place] Glucose [Mass/Vol] 64 mg/dL Low 74-99 [facility] Comment on above: Order Comment: Eugenie dumont Type: BLOOD SPECIMENOrdering Facility: [facility] Address: [address] [place] [address] Result Comment: The [place] Diabetes [employer] (ADA) provides guidance for cutoff values for fasting glucose and random glucose. The ADA defines fasting as no caloric intake for at least 8 hours. Fasting plasma glucose results between 100 to 125 mg/dL indicate increased risk for diabetes (prediabetes). Fasting plasma glucose results greater than or equal to 126 mg/dL meet the criteria for diagnosis of diabetes. In the absence of unequivocal hyperglycemia, results should be confirmed by repeat testing. In a patient with classic symptoms of hyperglycemia or hyperglycemic crisis, random plasma glucose results greater than or equal to 200 mg/dL meet the criteria for diagnosis of diabetes. Reference: Standards of Medical Care in Diabetes 2016, [place] [employer]. Diabetes Care. 2016.39(Suppl 1). Performed By: #### T [facility], , 1989-07 ####[facility]RAX[facility] LABORATORYCLIA [id number] [place] [id number] [place] Potassium [Moles/Vol] 4.7 mmol/L Normal 3.7-5.1 [facility] Comment on above: Order Comment: Eugenie dumont Type: BLOOD SPECIMENOrdering Facility: [facility] Address: [address] [place] [id number] Performed By: #### T [facility], 1989-07 ####[facility] LABORATORYCLIA [id number] [place] [id number] [place] Protein [Mass/Vol] 6.9 g/dL Normal 6.3-8.0 [facility] Comment on above: Order Comment: Speci men Type: BLOOD SPECIMENOrdering Facility: [facility] Address: [address] [place] [address] Performed By: #### July HARRELL, 1989-07 ####[facility] LABORATORYCLIA [id number] [place] [address] [place] Sodium [Moles/Vol] 142 mmol/L Normal 136-144 [facility] Comment on above: Order Comment: Speci men Type: BLOOD SPECIMENOrdering Facility: [facility] Address: [address] [place] [address] Performed By: #### July HARRELL, 1989-07 ####[facility] LABORATORYCLIA [id number] [place] [address] [place] Urea nitrogen [Mass/Vol] 10 mg/dL Normal 7-21 [facility] Comment on above: Order Comment: Speci men Type: BLOOD SPECIMENOrdering Facility: [facility] Address: [address] [place] [address] Performed By: #### July HARRELL, 1989-07 ####[facility] LABORATORYCLIA [id number] [place] [address] [place] ESR Westergren method (Bld) [Velocity]on 05-27-2024 ESR (Bld) [Velocity] 2 mm/h [facility] Interpretation and review of laboratory results Normal [facility] ESR (Bld) [Velocity] 2 mm/h Normal 0-20 [facility] Comment on above: Order Comment: Speci men Type: BLOOD SPECIMENOrdering Facility: [facility] Address: [address] [place] [address] Performed By: #### 4 537-7 ####[facility] LABCLIA [id number] [facility] HOSPITALLuis NEW SPRINGFIELDLAURA [address] [place]#### [address]-6 ####[facility] IESHA [facility] [id number] [place] [id number] [place] TSH W/REFLEX FT4on 5 TSH Qn 1.600 m[IU]/L Normal 0.270-4.200 [facility] Comment on above: Order Comment: Speci men Type: BLOOD SPECIMENOrdering Facility: [facility] Address: [address] [place] [address] Performed By: #### T [facility], 94268-5, 1989-07 ####[facility] LABORATORYIA [id number] [address] [place] Guidance for arthrocentesis of Major jointon 05-06-2024 IMPRESSION: SUCCESSF UL ULTRASOUND GUIDED THERAPEUTIC INJECTION OF THE RIGHT ISCHIAL BURSA, DESCRIBED ABOVE. Attending Radiologist: Dr. Sven Rios MD Profile Grinder Technician: Ralph Guaman MD - Fellow The procedure was performed by the construction project assistant, and the attending radiologist personally supervised the entire procedure. Auto Bench Mechanic: [email or web address] Transcribe Date/Time: May 06 2024 10:03A Dictated by : RALPH GUAMAN MD This examination was interpreted and the report reviewed and electronically signed by: SVEN RIOS MD on May 06 2024 4:38PM [facility] DIVISION OF RADIOLOGY * * *Final Report* * * DATE OF EXAM: May 06 2024 9:05AM [facility] 1165 - US ASP/INJ HIP JT/BURSA RT / PROCEDURE REASON: Ischial bursitis of right side * * * * Physician Interpretation * * * * ULTRASOUND GUIDED RIGHT ISCHIAL BURSA THERAPEUTIC INJECTION INDICATION: The patient is a 53 years year old Female who presented with Ischial bursitis of right side. CONSENT: The risks, benefits, treatment options, potential complications and personnel to be involved were discussed (including the instruments to be used, contrast and anesthesia administration) with the patient. All questions were answered and consent was obtained. The patient indicated willingness to proceed. GENERAL: a) Medication Reconciliation: The patient's medications and allergies were reviewed in the electronic medical record and reconciled to the proposed procedure/treatment. Pre-procedure Sign-in: Safety Checklist Performed Yes c) Positioning: The patient was placed Prone on the Ultrasound table. d) Ultrasound guidance was used to target the ischial bursa. The area was then sterilely prepped and draped. Ultrasound images were saved and sent to a permanent archive. e) Time Out: A time out was performed immediately prior to procedure start with the nursing, anesthesia and interventional team, correctly identifying the patient name, date of , procedure, anatomy (including marking of site and side), patient position, procedure consent form, relevant diagnostic and radiology test results, antibiotic administration, safety precautions, and procedure-specific equipment needs. Procedure Start Time / Timeout Time: 0850 f) Anesthesia Type: Local anesthesia: 3 mL 1% Lidocaine PRE-PROCEDURE IMAGING: Imaging was performed for the purposes of localization. PROCEDURE: a) Procedure Details:A 22g needle was inserted into the bursa using ultrasound guidance after local anesthesia. 3 mL of injectate was administered into the bursa. The needle was removed. Images were stored to the digital archive documenting needle position. b) Injectate Contents: 1 mL Triamcinolone Acetonide (Kenalog) 40mg/ml 2 mL 0.5% Ropivacaine (Naropin) c) Estimated Blood Loss: 0 mL d) Number and Type of Removed Specimens: N/A POST PROCEDURE: a) Hemostasis: Hemostasis was achieved using light manual compression. b) Sign-out: Communication Performed N/A c) Procedure End Time: 0857 d) Conclusion: 1. Post-Procedure instructions:Verbal instructions were given. 2. The patient was discharged from the radiology department in stable condition. COMPLICATIONS: a) Significant Patient Complication: None b) Complications during the procedure: None RESULTS: Medication was injected into the bursa DIVISION OF RADIOLOGY Provider, Renée Kaur - 05/06/2024 * * *Final Report* * * DATE OF EXAM: May 06 2024 9:05AM [facility] 1165 - US ASP/INJ HIP JT/BURSA RT / PROCEDURE REASON: Ischial bursitis of right side * * * * Physician Interpretation * * * * ULTRASOUND GUIDED RIGHT ISCHIAL BURSA THERAPEUTIC INJECTION INDICATION: The patient is a 53 years year old Female who presented with Ischial bursitis of right side. CONSENT: The risks, benefits, treatment options, potential complications and personnel to be involved were discussed (including the instruments to be used, contrast and anesthesia administration) with the patient. All questions were answered and consent was obtained. The patient indicated willingness to proceed. GENERAL: a) Medication Reconciliation: The patient's medications and allergies were reviewed in the electronic medical record and reconciled to the proposed procedure/treatment. Pre-procedure Sign-in: Safety Checklist Performed Yes c) Positioning: The patient was placed Prone on the Ultrasound table. d) Ultrasound guidance was used to target the ischial bursa. The area was then sterilely prepped and draped. Ultrasound images were saved and sent to a permanent archive. e) Time Out: A time out was performed immediately prior to procedure start with the nursing, anesthesia and interventional team, correctly identifying the patient name, date of , procedure, anatomy (including marking of site and side), patient position, procedure consent form, relevant diagnostic and radiology test results, antibiotic administration, safety precautions, and procedure-specific equipment needs. Procedure Start Time / Timeout Time: 849 f) Anesthesia Type: Local anesthesia: 3 mL 1% Lidocaine PRE-PROCEDURE IMAGING: Imaging was performed for the purposes of localization. PROCEDURE: a) Procedure Details:A 22g needle was inserted into the bursa using ultrasound guidance after local anesthesia. 3 mL of injectate was administered into the bursa. The needle was removed. Images were stored to the digital archive documenting needle position. b) Injectate Contents: 1 mL Triamcinolone Acetonide (Kenalog) 40mg/ml 2 mL 0.5% Ropivacaine (Naropin) c) Estimated Blood Loss: 0 mL d) Number and Type of Removed Specimens: N/A POST PROCEDURE: a) Hemostasis: Hemostasis was achieved using light manual compression. b) Sign-out: Communication Performed N/A c) Procedure End Time: 856 d) Conclusion: 1. Post-Procedure instructions:Verbal instructions were given. 2. The patient was discharged from the radiology department in stable condition. COMPLICATIONS: a) Significant Patient Complication: None b) Complications during the procedure: None RESULTS: Medication was injected into the bursa IMPRESSION IMPRESSION: SUCCESSFUL ULTRASOUND GUIDED THERAPEUTIC INJECTION OF THE RIGHT ISCHIAL BURSA, DESCRIBED ABOVE. Attending Radiologist: Dr. Sven Rios MD Profile Grinder Technician: Ralph Guaman MD - Fellow The procedure was performed by the construction project assistant, and the attending radiologist personally supervised the entire procedure. Auto Bench Mechanic: PSCMaty Transcribe Date/Time: May 06 2024 10:03A Dictated by : RALPH GUAMAN MD This examination was interpreted and the report reviewed and electronically signed by: SVEN RIOS MD on May 06 2024 4:38PM EST [facility] Radiology Study observation (narrative) [place] [facility] Guidance for arthrocentesis of Major jointOrdered By: Ccf Provider on 05-06-2024 [facility] US ASP/INJ HIP JT/BURSA RTon 05-06-2024 US ASP/INJ HIP JT/BURSA RT * * *Final Report* * * DATE OF EXAM: May 06 2024 9:05AM KADY 1165 - US ASP/INJ HIP JT/BURSA RT / PROCEDURE REASON: Ischial bursitis of right side * * * * Physician Interpretation * * * * ULTRASOUND GUIDED RIGHT ISCHIAL BURSA THERAPEUTIC INJECTION INDICATION: The patient is a 53 years year old Female who presented with Ischial bursitis of right side. CONSENT: The risks, benefits, treatment options, potential complications and personnel to be involved were discussed (including the instruments to be used, contrast and anesthesia administration) with the patient. All questions were answered and consent was obtained. The patient indicated willingness to proceed. GENERAL: a) Medication Reconciliation: The patient's medications and allergies were reviewed in the electronic medical record and reconciled to the proposed procedure/treatment. Pre-procedure Sign-in: Safety Checklist Performed Yes c) Positioning: The patient was placed Prone on the Ultrasound table. d) Ultrasound guidance was used to target the ischial bursa. The area was then sterilely prepped and draped. Ultrasound images were saved and sent to a permanent archive. e) Time Out: A time out was performed immediately prior to procedure start with the nursing, anesthesia and interventional team, correctly identifying the patient name, date of , procedure, anatomy (including marking of site and side), patient position, procedure consent form, relevant diagnostic and radiology test results, antibiotic administration, safety precautions, and procedure-specific equipment needs. Procedure Start Time / Timeout Time: 0850 f) Anesthesia Type: Local anesthesia: 3 mL 1% Lidocaine PRE-PROCEDURE IMAGING: Imaging was performed for the purposes of localization. PROCEDURE: a) Procedure Details:A 22g needle was inserted into the bursa using ultrasound guidance after local anesthesia. 3 mL of injectate was administered into the bursa. The needle was removed. Images were stored to the digital archive documenting needle position. b) Injectate Contents: 1 mL Triamcinolone Acetonide (Kenalog) 40mg/ml 2 mL 0.5% Ropivacaine (Naropin) c) Estimated Blood Loss: 0 mL d) Number and Type of Removed Specimens: N/A POST PROCEDURE: a) Hemostasis: Hemostasis was achieved using light manual compression. b) Sign-out: Communication Performed N/A c) Procedure End Time: 856 d) Conclusion: 1. Post-Procedure instructions:Verbal instructions were given. 2. The patient was discharged from the radiology department in stable condition. COMPLICATIONS: a) Significant Patient Complication: None b) Complications during the procedure: None RESULTS: Medication was injected into the bursa IMPRESSION: SUCCESSFUL ULTRASOUND GUIDED THERAPEUTIC INJECTION OF THE RIGHT ISCHIAL BURSA, DESCRIBED ABOVE. Attending Radiologist: Dr. Sven Rios MD Profile Grinder Technician: Ralph Guaman MD - Fellow The procedure was performed by the construction project assistant, and the attending radiologist personally supervised the entire procedure. Auto Bench Mechanic: PSYCHIATRIC Transcribe Date/Time: May 06 2024 10:03A Dictated by : RALPH GUAMAN MD This examination was interpreted and the report reviewed and electronically signed by: SVEN RIOS MD on May 06 2024 4:38PM EST [id number] Normal [facility] 04-17-2024 [facility] Telephone (RULTTB) -------- MARGOT HU ([id number]) 1970 F [facility] Date Time Provider Department 04/17/24 EASTON WU During your visit today, we recorded the following information about you: Easton Wu 04/17/2024 12:05 PM Signed Visit Type: INJ ONLY 1 Visit Length: 60 MINUTES Order Name/Protocol: US ASP/INJ HIP JT/BURSA RT; RT ISCHIAL BURSA INJ. Preferred Provider: N/A Comment: N/A Location: [facility] Slot held: N/A Easton Wu 04/17/2024 1:31 PM Signed PT scheduled for MSK US INJ on 05/06/24 at 8:15 AM at [facility]. Allergies As of Date: 04/17/2024 Noted Allergy Reaction SULFAMETHOXAZOLE-TRIMETH OPRIM 04/11/2012 16 - Unknown ALEVE (NAPROXEN) 02/27/2013 4 - Hives BACTRIM (SULFAMETHOXAZOLE) 02/27/2013 14 - Other: See Comments Comments: Swollen joints LACTOSE INTOLERANCE (LACTASE) 02/27/2013 14 - Other: See Comments Comments: Gastric problems, swelling of lymph nodes MIDODRINE 06/01/2015 2 - Rash PENICILLINS 02/27/2013 16 - Unknown Comments: Childhood reaction. Date Reviewed: 04/16/2024 Reviewed by: Shruti Styles OCCA - Fully Assessed Reason for Visit: Appointment [186] Prescriptions as of 04/17/2024 - meloxicam (MOBIC) 15 mg tablet Take 1 tablet by mouth once daily. - Estradiol (ZANDER) 0.0375 mg/24 hr Apply 1 Patch as directed two times a week. - Biocidin Advanced Formula ([employer]) Take 5 Drops by mouth three times daily. - A-EB/H6 (Bright White Formulas) Take 1-2 drops daily, increase to 10 drops per day as tolerated. - Cortisol Masonry Installer 90 ct. ([employer]) Stress, blood sugar, thyroid/hormones/adrenal s/sleep/energy/anxiety Take 1 in AM and 1 before bed - Magnesium (Citrate) 150 mg (Pure Encapsulations) Take 4 capsules daily. - TherBiotic Complete 120 Ct. (Klaire/Prothera) Take 1 capsule by mouth once daily. - Vitamin D3 5000 U (Pure Encapsulations) Take 1 capsule by mouth daily with food. - melatonin 1 mg tablet Take 1 mg by mouth daily at bedtime. - MULTIVIT-MINERALS/FERROU S FUM (MULTI VITAMIN ORAL) Take by mouth once daily. - ERGOCALCIFEROL, VITAMIN D2, (VITAMIN D ORAL) Take 1,000 Units by mouth once daily. - VITAMIN B COMPLEX (B COMPLEX ORAL) Take 2 tablets by mouth once daily. Problem List As Of Date 04/17/2024 Noted Resolved Weakness [R53.1] 02/27/2013 Tachycardia [R00.0] 02/27/2013 06/07/2017 Abdominal pain, other specified site [R10.9] 02/27/2013 06/07/2017 Diarrhea [R19.7] 02/27/2013 06/07/2017 Muscle tear [T14.8XXA] 04/23/2013 06/07/2017 Orthostatic hypotension [I95.1] 04/23/2013 06/07/2017 POTS (postural orthostatic tachycardia syndrome*09/14/2013 06/07/2017 Mass of elbow region [R22.30] 11/03/2015 Raynaud's phenomenon [I73.00] [place]'s thyroiditis [E06.3] 01/24/2017 Thyroid mass [E07.9] 01/24/2017 06/07/2017 S/P partial thyroidectomy [E89.0] 09/13/2017 Hand pain [M79.643] 06/10/2018 Constipation [K59.00] 06/10/2018 Bloating [R14.0] 06/10/2018 Insomnia [G47.00] 06/10/2018 IBS (irritable bowel syndrome) [K58.9] 06/10/2018 Small intestinal bacterial overgrowth [K63.8219]08/13/2018 Injury of right hand [S69.91XA] 10/26/2023 Puncture wound of right hand with foreign body *10/26/2023 Encounter Status:Closed by EASTON WU on 04/17/24 [facility] 04-16-2024 CNOV Office Visit (SPRTSO ) -------- MARGOT HU ([id number]) 1970 F [facility] Date Time Provider Department 04/16/24 2:15 PM SARAH WYNN During your visit today, we recorded the following information about you: Christa Ashton MD 04/16/2024 2:58 PM Signed DEPARTMENT OF ORTHOPAEDICS Chief Complaint: Right hip pain HISTORY OF PRESENT ILLNESS: This is a pleasant 53 year old female, who presents today with a chief complaint of right hip pain. Injury/ Trauma: Denies Patient with a history of bilateral Anton medius abductor repairs done in 2008 by outside surgeon Ngoc. She overall did well from this but does have periodic lateral hip pain that she takes anti-inflammatories for. For the past 3 months since December she has had significant ischial pain which has not improved. Her primary care's started her on a oral prednisone which helped transiently. Anti-inflammatories helped somewhat. Pain is worst when seated or when riding the bike. She states she does have some pain when having resistance to her hamstrings but it is mostly pressure related. She does use a doughnut to help offload the area when seated. She has been doing therapy and some home exercises. PAIN EVALUATION 04/14/2024 0940 04/16/2024 1405 Pain Level: 3 3 Pain Location: Buttocks-Right Leg-Right Description: Aching;Burning;Cramping Sharp Duration Amount of Time: -- 3 Duration Units: Months Months Frequency: Intermittent Intermittent Intervention/Comfort measure: Medication;Reposition;Ex ercise;Pillow support Medication;Positioning ice Pain location: posterior Duration of pain/ symptoms: 3 months Frequency: intermittent Intensity: moderate Quality: dull She Reports nocturnal pain. She denies numbness, tingling, or electric shocks. She denies popping, clicking, catching, locking, grinding, instability, buckling, or giving way. 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 Activity level: Hiking, biking, walking PAST MEDICAL HISTORY Diagnosis Date Goiter IBS (irritable bowel syndrome) POTS (postural orthostatic tachycardia syndrome) Raynaud's phenomenon PAST SURGICAL HISTORY Procedure Laterality Date APPENDECTOMY ARTHROSCOPY KNEE DIAGNOSTIC W/WO SYNOVIAL BX SPX Left 2003 Arthroscopy, knee DELIVERY ONLY 1996 ELBOW SURGERY HX Left 2015 excission mass left elbow OOPHORECTOMY PARTIAL/TOTAL UNI/BI right ovary 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 Biocidin Advanced Formula ([employer]) Take 5 Drops by mouth three times daily. A-EB/H6 (Bright White Formulas) Take 1-2 drops daily, increase to 10 drops per day as tolerated. Cortisol Masonry Installer 90 ct[address] ([employer]) Stress, blood sugar, thyroid/hormones/adrenal s/sleep/energy/anxiety Take 1 in AM and 1 before bed 0 Magnesium (Citrate) 150 mg (Pure Encapsulations) Take 4 capsules daily. 120 capsule [address] (Klaire/Prothera) Take 1 capsule by mouth once daily. Vitamin D3 5000 U (Pure Encapsulations) Take 1 capsule by mouth daily with food. melatonin 1 mg tablet Take 1 mg by mouth daily at bedtime. MULTIVIT-MINERALS/FERROU S FUM (MULTI VITAMIN ORAL) Take by mouth once daily. ERGOCALCIFEROL, VITAMIN D2, (VITAMIN D ORAL) Take 1,000 Units by mouth once daily. VITAMIN B COMPLEX (B COMPLEX ORAL) Take 2 tablets by mouth once daily. No current facility-administered medications for this visit. ALLERGIES Allergen Reactions Sulfamethoxazole-Tr* Unknown Aleve [Naproxen] Hives Bactrim [Sulfametho* Other: See Comments Swollen joints Lactose Intolerance* Other: See Comments Gastric problems, swelling of lymph nodes Midodrine Rash Penicillins Unknown Childhood reaction. FAMILY HISTORY Problem Relation Age of Onset other (htn) Father other (htn) Mother other (DM) Mother other (CLL) Maternal Aunt Ischemic Heart Disease Maternal Grandfather other (HOCM) Maternal Aunt Social History Tobacco Use Smoking status: Never Smokeless tobacco: Never Tobacco comments: No smoking in childhood or adult homes. Substance Use Topics Alcohol use: Yes Comment: Rarely. Drug use: No REVIEW OF SYSTEMS: GENERAL: No weight loss, malaise or fevers HEENT: Negative for frequent or signi (more content not included)... Normal [facility] XR HIP 3V PELV+ AP/LAT RTon 04-16-2024 XR HIP 3V PELV+ AP/LAT RT * * *Final Report* * * DATE OF EXAM: Apr 16 2024 1:59PM SOX [id number] - XR HIP 3V PELV+ AP/LAT RT / PROCEDURE REASON: Pain * * * * Physician Interpretation * * * * HISTORY (as given from clinical provider): Pain . Additional history provided by the performing technologist (if any): --> pain TECHNIQUE: XR HIP 3V PELV+ AP/LAT RT COMPARISON: None RESULT: Normal hip joints and SI joints. Incidental note of transitional lumbosacral vertebral anatomy with prominent left-sided L5 transverse process. No other significant abnormality. Auto Bench Mechanic: PSYCHIATRIC Transcribe Date/Time: Apr 16 2024 5:52P Dictated by : CRIS CARTER MD This examination was interpreted and the report reviewed and electronically signed by: CRIS CARTER MD on Apr 16 2024 5:52PM EST [id number] Normal [facility] XR Pelvis and Hip - right AP and Lateral frogon 04-16-2024 * * *Final Report* * * DATE OF EXAM: Apr 16 2024 1:59PM SOX [id number] - XR HIP 3V PELV+ AP/LAT RT / PROCEDURE REASON: Pain * * * * Physician Interpretation * * * * HISTORY (as given from clinical provider): Pain . Additional history provided by the performing technologist (if any): --> pain TECHNIQUE: XR HIP 3V PELV+ AP/LAT RT COMPARISON: None RESULT: Normal hip joints and SI joints. Incidental note of transitional lumbosacral vertebral anatomy with prominent left-sided L5 transverse process. No other significant abnormality. Auto Bench Mechanic: PSYCHIATRIC Transcribe Date/Time: Apr 16 2024 5:52P Dictated by : CRIS CARTER MD This examination was interpreted and the report reviewed and electronically signed by: CRIS CARTER MD on Apr 16 2024 5:52PM [facility] DIVISION OF RADIOLOGY Provider, [facility] - 04/16/2024 * * *Final Report* * * DATE OF EXAM: Apr 16 2024 1:59PM MARBELLA 5352 - XR HIP 3V PELV+ AP/LAT RT / PROCEDURE REASON: Pain * * * * Physician Interpretation * * * * HISTORY (as given from clinical provider): Pain . Additional history provided by the performing technologist (if any): --> pain TECHNIQUE: XR HIP 3V PELV+ AP/LAT RT COMPARISON: None RESULT: Normal hip joints and SI joints. Incidental note of transitional lumbosacral vertebral anatomy with prominent left-sided L5 transverse process. No other significant abnormality. Auto Bench Mechanic: JESUS Transcribe Date/Time: Apr 16 2024 5:52P Dictated by : CRIS CARTER MD This examination was interpreted and the report reviewed and electronically signed by: CRIS CARTER MD on Apr 16 2024 5:52PM [facility] Radiology Study observation (narrative) Pablo smith [facility] XR Pelvis and Hip - right AP and Lateral frogOrdered By: [facility] Provider on 04-16-2024 [facility] CNOVon 04-09-2024 CNOV Office Visit (OMMS) -------- MARGOT HU ([id number]) 1970 [facility] Date Time Provider Department 04/09/24 4:00 PM [facility]A [facility] During your visit today, we recorded the following information about you: Temperature Pulse Blood pressure Weight 97.3 degrees 64/minute 112/72 74.2 kg Tanika Alves DO 04/09/2024 5:09 PM Signed Osteopathic Neuromusculoskeletal Medicine Progress Note Name: Margot Hu Date of : 1970 PCP: Ama Hamilton MD Date of Exam: April 09, 2024 SUBJECTIVE Chief Complaint: This is Margot Hu, a 53 year old female who presents with Patient presents with: lschial bursitis of right side AMB ROOMING INTAKE FLOWSHEET DATA Pain Pain Level: 2 Description: Sharp, Burning Frequency: Continuous Intervention/Comfort measure: Reposition, Relaxation, Positioning History of Present Illness: Patient presents for follow-up. She reports that she is doing okay. She does continue to experience persistent and constant burning, often sharp, pain over the ischial tuberosity on the right side 2/2 known ischial bursitis; no significant improvement with OMT. She does have an appointment with Dr. Wynn next week and plans to discuss potentially getting a steroid injection into the bursa. Otherwise, she does not have any particular concerns today. The pain in the right fourth finger is significantly improved, occasionally achy at night. Medical, surgical, and family histories reviewed. Allergies and social history reviewed. Review of Systems Musculoskeletal: Positive for arthralgias and back pain. Negative for gait problem, joint swelling, myalgias, neck pain and neck stiffness. Neurological: Negative for dizziness, weakness, numbness and headaches. OBJECTIVE BP 112/72 Pulse 64 Temp (Src) 97.3 (Temporal) Wt 163 lb 9.3 oz (74.2kg) LMP 10/25/2023 Physical Exam Vitals and nursing note reviewed. Constitutional: General: She is not in acute distress. HENT: Head: Normocephalic and atraumatic. Pulmonary: Effort: Pulmonary effort is normal. Abdominal: General: There is no distension. Palpations: Abdomen is soft. Musculoskeletal: Cervical back: Neck supple. No pain with movement, spinous process tenderness or muscular tenderness. Decreased range of motion. Thoracic back: No spasms, tenderness or bony tenderness. Decreased range of motion. Lumbar back: No spasms, tenderness or bony tenderness. Decreased range of motion. Comments: Marked tenderness with boggy texture over the right ischial tuberosity Skin: General: Skin is warm and dry. Neurological: Mental Status: She is alert. Mental status is at baseline. Psychiatric: Mood and Affect: Mood normal. Somatic Dysfunction by Body Region: Head: OA flexed, side bent right rotated left Cervical: C4 flexed, side bent right rotated left Thoracic: T7 extended, rotated and side bent right Lumbar: L5 flexed rotated and sidebent right Sacral: Left on left torsion Pelvis: Right innominate anteriorly rotated Upper extremities: Right fourth DIP restricted on its own lateral aspect Lower extremities: Right hamstring hypertonicity; tension overlying the right ischial tuberosity ASSESSMENT AND PLAN Ischial bursitis of right side (primary encounter diagnosis) Finger pain, right Somatic dysfunction of head region Somatic dysfunction of cervical region Somatic dysfunction of thoracic region Somatic dysfunction of lumbar region Somatic dysfunction of sacral region Somatic dysfunction of pelvis region Somatic dysfunction of upper extremity Somatic dysfunction of lower extremity Orders Placed This Encounter Osteopathic manipulative treatment (OMT) Order Comments: This order was created via procedure documentation Patient presents for follow-up of right ischial bursitis and right SI joint pain. No significant improvement; she will be seeing Dr. Wynn soon and will be discussing possible corticosteroid injection. Right finger pain has significantly improved. Somatic dysfunction correlating with her symptoms was identified on exam today. The goal of OMT will specifically be to restore as much structure as possible to improve the efficacy of any corticosteroid injections are performed as well as to improve blood flow in and out of the area to promote healing. OMT was performed today to improve function and reduce symptoms with good effect. See procedure note below. Return in about 8 weeks (around 06/04/2024). >50% of time spent on the date of service was dedicated to preparing to see the patient, [id number] patient care, completing clinical documentation, obtaining and/or reviewing separately obtained history, performing a medically appropriate examination, counseling and educating the patient/family/caregiver , and time excludes procedure OMT . Thi (more content not included)... Normal [facility] Osteopathic manipulative dominic atment (OMT)on 04-09-2024 Tanika Alves DO 04/09/2024 5:09 PM Osteopathic manipulative treatment (OMT) Time/Date:04/09/2024 4:31 PM Informed Consent Consent Obtained: Verbal [place] Protocol A moment to CARE was completed. SIGN IN Special Equipment: N/A Patient/Surrogate Stated/Verified: Patient name, Date of and Intended procedure TIME OUT Intended patient and procedure match the source document(s). Consent documented and matches the intended procedure. Consent Obtained:Verbal Body Regions: Head, Cervical, Thoracic, Lumbar, Sacrum, Pelvis, Upper Extremities and Lower Extremities Head Technique: balanced ligamentous tension Cervical Technique: balanced ligamentous tension, high-velocity low-amplitude thrust Thoracic Technique: myofascial release Lumbar Technique: myofascial release Sacrum Technique: myofascial release Pelvis Technique: myofascial release Upper Extremeties Technique: balanced ligamentous tension Lower Extremities Technique:facilitated positional release, myofascial release Number of Body Regions: 7- 8 Disposition: Osteopathic manipulation tolerated well, reports subjective and objective improvement, improvement in range of motion and mechanics, instructed to increase hydration for the next 24 hours and instructed to follow up if symptoms worsen or fail to improve [facility] Internal Medicine Office Vis aric 03-05-2024 Internal Medicine Office Visit [facility] [address] [place] [address] [place] [address] OFFICE VISIT Date of Service: 03/05/24 MR#: [id number] Acct: [id number] Name: MARGOT HU Rep #: [id number] : 1970 Provider: KHALIDA Tejeda Age/Sex: 53/F Location[facility] Status: Signed Intake Vital Signs 11/21/23 12:16 03/05/24 07:28 Height 5 ft 11 in 5 ft 11 in Weight: 161 lb BMI 22.4 BP 110/64 Blood Pressure Location Lt brachial Position Sitting Respiration 14 Pulse 77 Pulse Source Monitor Temp 97.5 F L Temp Source Temporal Pulse Oximetry (%) 97 Oxygen Delivery Method room air Intake Visit Reasons: BURSITIS FOLLOW UP Manager Systems Required: No Is patient in pain?: Yes (R buttock) Pain scale (1-10): 3 Allergies naproxen sodium (From Aleve) Allergy (Severe, Verified 03/05/24 07:22) Hives Penicillins (PCN) Allergy (Unknown, Verified 03/05/24 07:22) Unknown midodrine Allergy (Verified 03/05/24 07:22) Rash Sulfa (Sulfonamide Antibiotics) Adverse Reaction (Severe, Verified 03/05/24 07:22) Other Medications ???Medication ???Instructions ???Recorded ???Confirmed ???Type multivitamin,tx-iron-min erals 27 1 tab PO DAILY 01/29/17 03/05/24 History mg-0.4 mg tablet krill 1,000 mg-omega-3 170 mg-dha 1 cap PO BID 04/19/17 03/05/24 History 50 mg-epa 80 it-bqngbp-rceja capsule (krill oil) cholecalciferol (vitamin D3) 125 5,000 unit PO DAILY 04/03/19 03/05/24 History mcg (5,000 unit) disintegrating tablet magnesium 30 mg tablet 30 mg PO DAILY 04/15/20 03/05/24 History melatonin 10 mg capsule 5 mg PO HS 04/15/20 03/05/24 History estradiol 0.05 mg/24 hr semiweekly 1 patch transdermal 2XW #24 ea 07/30/23 03/05/24 Rx transdermal patch (Vivelle-Dot) gabapentin 300 mg capsule 300 mg PO QHS #90 caps 11/21/23 03/05/24 Rx medroxyprogesterone 2.5 mg tablet 2.5 mg PO DAILY 11/21/23 03/05/24 History meloxicam 7.5 mg tablet 7.5 mg PO BID #30 tabs 03/05/24 03/05/24 Rx methylprednisolone 4 mg tablets in See Rx Instructions PO PER PKG DIR 03/05/24 03/05/24 Rx a dose pack (Medrol (Trevin)) #21 tabs Nurse's Note: R buttock pain has been going on about 2.5 months, has been using ice, US, stretching , excercises, and advil. nothing is helping. There is not radiation down leg, and is pin pointed. Sitting and walking on even surfaces hurts the worse. Has been sitting on a donut. Thinks it is bursitis. COUNTS INCLUDE 234 BEDS AT THE [facility] Medical History Wears contact lenses Post-menopausal Open wound Non-smoker History of stress test History of echocardiogram Cardiology follow-up encounter PONV (postoperative nausea and vomiting) Tinnitus Preventative health care Dermatitis Cellulitis Menopausal hot flushes Anxiety SIBO Gastroenteritis IBS (irritable bowel syndrome) Goiter POTS (postural orthostatic tachycardia syndrome) Surgical History S/P cervical polypectomy History of thyroid surgery hemangeoma left elbow Mucinous cystadenoma of right ovary Tendinopathy of right gluteal region Tendinopathy of left gluteus medius History of arthroscopy of left knee History of section History of tonsillectomy History of appendectomy left knee scope hemangeoma left elbow Right Mucinous Cystadenoma left glute medius tenson repair right glute medius tendon repair left knee scope History of History of tonsillectomy History of appendectomy Family History Mother Heart disease Hypertension Father Hypertension Arthritis Anxiety Hyperlipemia Grandfather Myocardial infarction, Onset Age: 58 Aunt Myocardial infarction, Onset Age: 73 CLL (chronic lymphocytic leukemia) Social History household members: spouse and children Smoking Status: Never smoker alcohol intake: current alcohol intake frequency: holidays/special occasions only substance use type: does not use caffeine: Yes what type of physical activity do you participate in: walking, yoga and aerobics frequency: 5-6 times per week HPI HPI Details: MARGOT FRITZ, is a 53 F who presents to the office today for right sided buttock pain. Patient states that she started to notice this back in December. She noticed initially when she was walking and then noticed this when she would be seated. She has been taking anti-inflammatories, icing, heating, doing stretches / yoga, has done some u/s (she has her own U/s machine). ROS Const Constitutional: No body ache, chills, excessive sweating, fatigue, fever(s), frequent falls, headache(s), snoring, weakness, sleep problems or change in appetite Eyes Eyes: (more content not included)... Normal [facility] CNOVon 02-15-2024 CNOV Office Visit (OMMS) -------- MARGOT HU ([id number]) 1970 F [facility] Date Time Provider Department 02/15/24 8:00 AM TANIKA ALVES RADHA During your visit today, we recorded the following information about you: Temperature Pulse Respiration Blood pressure 96.8 degrees 77/minute 16/minute 114/71 Weight 72.7 kg Tanika Alves DO 02/15/2024 8:37 AM Signed Osteopathic Neuromusculoskeletal Medicine Progress Note Name: Margot Hu Date of : 1970 PCP: Ama Hamilton MD Date of Exam: February 15, 2024 SUBJECTIVE Chief Complaint: This is Margot Hu, a 53 year old female who presents with Patient presents with: Buttock Pain: Right side AMB ROOMING INTAKE FLOWSHEET DATA Risk Screening Do you have concerns about personal safety or safety in the home?: No Pain Pain Level: 3 Pain Location: Buttocks-Right Description: Aching, Sharp Duration Units: Weeks Frequency: Intermittent Intervention/Comfort measure: Medication, Reposition, Cold, Pillow support History of Present Illness: Patient presents for follow-up. Good improvement in her usual symptoms of right SI joint pain after last osteopathic manipulative treatment, also reporting full range of motion in the right fourth finger now, though there is still a little bit of aching pain there. It does feel like there is an occasional catch in her right wrist. Overall, she feels improved. However, for the past month and a half or so she has been experiencing gradually worsening aching and sometimes burning pain over the right ischial tuberosity, particularly with sitting or walking. There was no trauma or injury associated with this, however it is interfering with her usual exercise and physical activity. Nightly Advil helps, and sometimes an ice pack will also help (though sometimes it can make it burn more). She has had to sit on a wide oval shaped donut cushion. Medical, surgical, and family histories reviewed. Allergies and social history reviewed. Review of Systems Musculoskeletal: Positive for arthralgias, back pain and gait problem. Negative for joint swelling, myalgias, neck pain and neck stiffness. Neurological: Negative for dizziness, weakness, numbness and headaches. OBJECTIVE BP 114/71 Pulse 77 Temp 96.8 Resp 16 Wt 160 lb 4.4 oz (72.7kg) LMP 10/25/2023 Physical Exam Vitals and nursing note reviewed. Constitutional: General: She is not in acute distress. HENT: Head: Normocephalic and atraumatic. Pulmonary: Effort: Pulmonary effort is normal. Abdominal: General: There is no distension. Palpations: Abdomen is soft. Musculoskeletal: Cervical back: Neck supple. No pain with movement, spinous process tenderness or muscular tenderness. Decreased range of motion. Thoracic back: No spasms, tenderness or bony tenderness. Decreased range of motion. Lumbar back: No spasms, tenderness or bony tenderness. Decreased range of motion. Comments: Marked tenderness with boggy texture over the right ischial tuberosity Skin: General: Skin is warm and dry. Neurological: Mental Status: She is alert. Mental status is at baseline. Psychiatric: Mood and Affect: Mood normal. Somatic Dysfunction by Body Region: Cervical: C5 flexed, rotated and side bent left Thoracic: T2 bilaterally flexed; T4 flexed, rotated and side bent left; T12 extended, rotated and side bent right Lumbar: L5 extended, rotated sidebent right Sacral: Right on left torsion Pelvis: Right innominate markedly anteriorly rotated; tender point over the right ischial tuberosity Upper extremities: Right hamate and fifth metacarpal restricted; right wrist pronated ASSESSMENT AND PLAN Ischial bursitis of right side (primary encounter diagnosis) Chronic right si joint pain Finger pain, right Somatic dysfunction of cervical region Somatic dysfunction of thoracic region Somatic dysfunction of lumbar region Somatic dysfunction of sacral region Somatic dysfunction of pelvis region Somatic dysfunction of upper extremity Orders Placed This Encounter Osteopathic manipulative treatment (OMT) Order Comments: This order was created via procedure documentation Patient presents for follow-up, reporting continuing transient improvement in her usual symptoms of right SI joint pain with OMT. Right fourth finger range of motion is restored, however there is still a little bit of aching pain with an associated catch in the lateral aspect of the right wrist. Now also experiencing pain over the right ischial tuberosity, particular with sitting; exam findings are suggestive of ischial bursitis. Somatic dysfunction correlating with her symptoms was identified on exam today OMT was performed today to improve function and reduce symptoms with good effect. See procedure note below. If ischial bursitis persis (more content not included)... Normal [facility] Osteopathic manipulative dominic atment (OMT)on 02-15-2024 Tanika Alves DO 02/15/2024 8:37 AM Osteopathic manipulative treatment (OMT) Time/Date:02/15/2024 8:34 AM Informed Consent Consent Obtained: Verbal Acworth Protocol A moment to CARE was completed. SIGN IN Special Equipment: N/A Patient/Surrogate Stated/Verified: Patient name, Date of and Intended procedure TIME OUT Intended patient and procedure match the source document(s). Consent documented and matches the intended procedure. Consent Obtained:Verbal Body Regions: Cervical, Thoracic, Lumbar, Pelvis, Sacrum and Upper Extremities Cervical Technique: balanced ligamentous tension Thoracic Technique: facilitated positional release Lumbar Technique: myofascial release Sacrum Technique: myofascial release Pelvis Technique: balanced ligamentous tension, counterstrain Number of Body Regions: 5- 6 Disposition: Osteopathic manipulation tolerated well, reports subjective and objective improvement, improvement in range of motion and mechanics, instructed to increase hydration for the next 24 hours and instructed to follow up if symptoms worsen or fail to improve [facility] CNOVon 01-03-2024 CNOV Office Visit (OMMS) -------- MARGOT HU ([id number]) 1970 [facility] Date Time Provider Department 01/03/24 9:00 AM TANIKA ALVES [facility] During your visit today, we recorded the following information about you: Temperature Pulse Blood pressure Weight 96.1 degrees 62/minute 111/67 72.7 kg Tanika Alves DO 01/03/2024 10:31 AM Signed Osteopathic Neuromusculoskeletal Medicine Progress Note Name: Margot Hu Date of : 1970 PCP: Ama Hamilton MD Date of Exam: January 03, 2024 SUBJECTIVE Chief Complaint: This is Margot Hu, a 53 year old female who presents with Patient presents with: Finger Pain si joint pain Immunizations: Flu vaccination AMB ROOMING INTAKE FLOWSHEET DATA Pain Pain Level: 1 Pain Location: Buttocks-Right Description: Aching, Sharp Duration Units: Months Frequency: Intermittent Intervention/Comfort measure: Reposition, Relaxation, Positioning, Cold History of Present Illness: Patient presents for follow-up. Continues to get excellent relief with OMT. Her right fourth finger is generally much less painful though she does continue to get rather prominent sharp pains here and there along the medial aspect of the finger, particularly while she is asleep. She has not been able to identify any particular trigger for the sharp pains. Also continues to have her chronic right SI/buttock pain, getting good relief with OMT but nothing permanent as of yet. Medical, surgical, and family histories reviewed. Allergies and social history reviewed. Review of Systems Musculoskeletal: Positive for arthralgias and back pain. Negative for gait problem, joint swelling, myalgias, neck pain and neck stiffness. Neurological: Negative for dizziness, weakness, numbness and headaches. OBJECTIVE BP 111/67 Pulse 62 Temp (Src) 96.1 (Temporal) Wt 160 lb 4.4 oz (72.7kg) LMP 10/25/2023 Physical Exam Vitals and nursing note reviewed. Constitutional: General: She is not in acute distress. HENT: Head: Normocephalic and atraumatic. Pulmonary: Effort: Pulmonary effort is normal. Abdominal: General: There is no distension. Palpations: Abdomen is soft. Musculoskeletal: Cervical back: Neck supple. No pain with movement, spinous process tenderness or muscular tenderness. Decreased range of motion. Thoracic back: No spasms, tenderness or bony tenderness. Decreased range of motion. Lumbar back: No spasms, tenderness or bony tenderness. Decreased range of motion. Skin: General: Skin is warm and dry. Neurological: Mental Status: She is alert. Mental status is at baseline. Psychiatric: Mood and Affect: Mood normal. Somatic Dysfunction by Body Region: Head: Suboccipital hypertonicity Cervical: C4, C5, flexed rotated and sidebent right Thoracic: T11 flexed rotated and sidebent right Lumbar: Right quadratus lumborum hypertonicity Sacral: Left SI joint tight; mild tightness in the right SI joint Pelvis: Right innominate posterior Ribs: Right ribs 11 and 12 exhaled Upper extremities: herniated trigger point of right 4th PIP; trigger band between the right 4th PIP and DIP ASSESSMENT AND PLAN Chronic right si joint pain (primary encounter diagnosis) Finger pain, right Somatic dysfunction of head region Somatic dysfunction of cervical region Somatic dysfunction of thoracic region Somatic dysfunction of lumbar region Somatic dysfunction of sacral region Somatic dysfunction of pelvis region Somatic dysfunction of upper extremity Need for influenza vaccination Need for vaccination Somatic dysfunction of rib Orders Placed This Encounter Osteopathic manipulative treatment (OMT) Order Comments: This order was created via procedure documentation INFLUENZA VACCINE, AGE 6MO-64YR, TRIVALENT (FLUZONE) Miroi COVID-19 VACCINE AGE 12+ YR (COMIRNATY) Patient presents for follow-up of chronic SI joint pain and persistent pain in the right fourth finger. Overall doing fairly well today, it gets good relief with OMT. Somatic dysfunction correlating with her symptoms was identified on exam today. OMT was performed today to improve function and reduce symptoms with good effect. See procedure note below. Return in about 6 weeks (around 02/14/2024). >50% of time spent on the date of service was dedicated to preparing to see the patient, [id number] patient care, completing clinical documentation, obtaining and/or reviewing separately obtained history, performing a medically appropriate examination, and counseling and educating the patient/family/caregiver . This note was partially generated using voice recognition software. It has been reviewed for typographical errors, however some may remain. Any questions regarding meaning or word use should be directed to the author. The patient was seen, evaluated, and tr (more content not included)... Normal [facility] Osteopathic manipulative dominic atment (OMT)on 01-03-2024 BrunoTanika mora DO 01/03/2024 10:31 AM Osteopathic manipulative treatment (OMT) Time/Date:01/03/2024 9:35 AM Informed Consent Consent Obtained: Verbal Acworth Protocol SIGN IN Special Equipment: N/A Patient/Surrogate Stated/Verified: Patient name, Date of and Intended procedure TIME OUT Intended patient and procedure match the source document(s). Consent documented and matches the intended procedure. Consent Obtained:Verbal Body Regions: Head, Cervical, Thoracic, Ribs, Lumbar, Pelvis and Sacrum Head Technique: suboccipital release Cervical Technique: balanced ligamentous tension Thoracic Technique: facilitated positional release Ribs Technique: myofascial release Lumbar Technique: myofascial release Sacrum Technique: high-velocity low-amplitude thrust Pelvis Technique: balanced ligamentous tension, myofascial release Number of Body Regions: 7- 8 Disposition: Osteopathic manipulation tolerated well, reports subjective and objective improvement, improvement in range of motion and mechanics, instructed to increase hydration for the next 24 hours and instructed to follow up if symptoms worsen or fail to improve [facility] CNOVon 12-07-2023 CNOV Office Visit ([facility] ) -------- FRITZMARGOT Luis ([id number]) 1970 F [facility] Date Time Provider Department 12/07/23 9:30 AM EASTON PARKER During your visit today, we recorded the following information about you: Respiration Weight Height 16/minute 71.2 kg 1.803 m Easton Parker MD 12/07/2023 11:30 AM Signed Patient presents with: Right Hand - Established Patient: 1 month follow up HISTORY OF PRESENT ILLNESS Margot Hu presents to the office for follow up of right hand puncture wound. The patient is doing well overall. She is now roughly the 6 weeks out from her initial injury. She has retained full motion. No significant pain generally. She is back to her regular activities. No new complaints or concerns on today's visit. Location: Right hand Severity: 0 on a scale of 0-10 Duration of symptoms: Over 6 weeks Treatments tried include conservative management with antibiotics, early active motion Symptoms have Improved REVIEW OF SYSTEMS Cardiovascular ROS:No history of chest pain, palpitation, orthopnea, cyanosis, pedal edema Neurologic ROS: Numbness and Tingling: No PAST MEDICAL HISTORY Past medical, surgical, family, and social histories have been reviewed and updated with the patient today and are located elsewhere in the medical record. Diabetes:No ALLERGIES ALLERGIES Allergen Reactions Sulfamethoxazole-Tr* Unknown Aleve [Naproxen] Hives Bactrim [Sulfametho* Other: See Comments Swollen joints Lactose Intolerance* Other: See Comments Gastric problems, swelling of lymph nodes Midodrine Rash Penicillins Unknown Childhood reaction. PHYSICAL EXAMINATION Resp 16 Ht 180.3 cm (5' 11) Wt 71.2 kg (157 lb) LMP 10/25/2023 (Exact Date) BMI 21.90 kg/m? Body mass index is 21.9 kg/m?. General Appearance Well appearing, alert, in no acute distress, well-hydrated, well nourished. Alert and oriented times: 3 Normal affect times: 3 Appears stated age and well nourished Gait and station:normal Right Upper Extremity Exam: Inspection demonstrates full healing over the puncture wound There is some scar tissue in the area which is minimally tender Tenderness to palpation: No tenderness along the flexor sheath ROM: Full composite fist, all digits tip to palm Sensation intact median, radial, ulnar nerve distribution 2+ radial pulse REVIEW OF STUDIES No new imaging obtained ASSESSMENT AND PLAN ASSESSMENT/PLAN: 1. Puncture wound of right hand with foreign body, subsequent encounter - ICD9: V58.89, 882.1, ICD10: S61.441D The patient has progressed well. She is back to her regular activities without any issues. We will plan on following up together as needed. She has no particular restrictions from my standpoint. All of her questions were answered to her satisfaction. Easton Parker MD Patient educated on activity restrictions: None. Patient instructed to call the office with questions or concerns. Referring Provider: SELF [[id number]] Allergies As of Date: 12/07/2023 Noted Allergy Reaction SULFAMETHOXAZOLE-TRIMETH OPRIM 04/11/2012 16 - Unknown ALEVE (NAPROXEN) 02/27/2013 4 - Hives BACTRIM (SULFAMETHOXAZOLE) 02/27/2013 14 - Other: See Comments Comments: Swollen joints LACTOSE INTOLERANCE (LACTASE) 02/27/2013 14 - Other: See Comments Comments: Gastric problems, swelling of lymph nodes MIDODRINE 06/01/2015 2 - Rash PENICILLINS 02/27/2013 16 - Unknown Comments: Childhood reaction. Date Reviewed: 12/07/2023 Reviewed by: Sofie Taylor LPN - Fully Assessed Reason for Visit: Established Patient [[id number]] Cmt: 1 month follow up Primary Visit Diagnosis:Puncture wound of right hand with foreign body, subsequent encounter [S61.441D] Prescriptions as of 12/07/2023 - Estradiol (ZANDER) 0.0375 mg/24 hr Apply 1 Patch as directed two times a week. - Biocidin Advanced Formula ([employer]) Take 5 Drops by mouth three times daily. - A-EB/H6 (Bright White Formulas) Take 1-2 drops daily, increase to 10 drops per day as tolerated. - Cortisol Masonry Installer 90 ct. ([employer]) Stress, blood sugar, thyroid/hormones/adrenal s/sleep/energy/anxiety Take 1 in AM and 1 before bed - Magnesium (Citrate) 150 mg (Pure Encapsulations) Take 4 capsules daily. - TherBiotic Complete 120 Ct. (Klaire/Prothera) Take 1 capsule by mouth once daily. - Vitamin D3 5000 U (Pure Encapsulations) Take 1 capsule by mouth daily with food. - melatonin 1 mg tablet Take 1 mg by mouth daily at bedtime. - MULTIVIT-MINERALS/FERROU S FUM (MULTI VITAMIN ORAL) Take by mouth once daily. - ERGOCALCIFEROL, VITAMIN D2, (VITAMIN D ORAL) Take 1,000 Units by mouth once daily. - VITAMIN B COMPLEX (B COMPLEX ORAL) Take 2 tablets by mouth once daily. Problem List As Of Date 12/07/2023 Noted Resolved Weakness [R53.1] 02/27/2013 Tachycardia [R00.0] 02/27/2013 06/07/2017 Abdominal (more content not included)... Normal [facility] CNOVon 12-03-2023 [facility] Office Visit (OMMS) -------- MARGOT HU ([id number]) 1970 [facility] Date Time Provider Department 12/03/23 9:00 AM TANIKA ALVES [facility] During your visit today, we recorded the following information about you: Temperature Pulse Blood pressure Weight 96.8 degrees 61/minute 106/66 74 kg Tanika Alves DO 12/03/2023 9:29 AM Signed Osteopathic Neuromusculoskeletal Medicine Progress Note Name: Margot Hu Date of : 1970 PCP: Ama Hamilton MD Date of Exam: December 03, 2023 SUBJECTIVE Chief Complaint: This is Margot Hu, a 53 year old female who presents with Patient presents with: si joint pain AMB ROOMING INTAKE FLOWSHEET DATA Pain Pain Level: 1 Pain Location: Buttocks-Right Description: Aching Duration Units: Months Frequency: Intermittent Intervention/Comfort measure: Reposition, Relaxation, Positioning, Exercise History of Present Illness: Patient presents for follow-up. She reports continued improvement in the pain in her right fourth finger, which is her principal concern today. There is still lingering aching pain in the finger with occasional swelling, without any particular inciting event when it does get bad. It was, for example, bad this morning when she woke up, calming down after several minutes. She has not reinjured the finger. Right SI joint pain is persistent, but at its baseline. It does not really bother her, only occasionally occurring here and there. Medical, surgical, and family histories reviewed. Allergies and social history reviewed. Review of Systems Musculoskeletal: Positive for arthralgias and joint swelling. Negative for back pain, gait problem, myalgias, neck pain and neck stiffness. Neurological: Negative for dizziness, weakness, numbness and headaches. OBJECTIVE BP 106/66 Pulse 61 Temp (Src) 96.8 (Temporal) Wt 163 lb 2.3 oz (74.0kg) LMP 10/25/2023 Physical Exam Vitals and nursing note reviewed. Constitutional: General: She is not in acute distress. HENT: Head: Normocephalic and atraumatic. Pulmonary: Effort: Pulmonary effort is normal. Abdominal: General: There is no distension. Palpations: Abdomen is soft. Musculoskeletal: Cervical back: Neck supple. No pain with movement, spinous process tenderness or muscular tenderness. Decreased range of motion. Thoracic back: No spasms, tenderness or bony tenderness. Decreased range of motion. Lumbar back: No spasms, tenderness or bony tenderness. Decreased range of motion. Skin: General: Skin is warm and dry. Neurological: Mental Status: She is alert. Mental status is at baseline. Psychiatric: Mood and Affect: Mood normal. Somatic Dysfunction by Body Region: Head: OA flexed, side bent right rotated left Cervical: C3 flexed, rotated and side bent right; C5 extended, rotated and side bent right Thoracic: T6 flexed, rotated and side bent left Lumbar: L3-L5 neutral, side bent right and rotated left Sacral: Sacrum flexed, side bent right rotated left Pelvis: Right innominate anteriorly rotated Upper extremities: Tension in the DIP and PIP of the right fourth finger; mild restriction involving the right metacarpal; right olecranon slightly valgus; right acromioclavicular joint moderately tight ASSESSMENT AND PLAN Finger pain, right (primary encounter diagnosis) Chronic right si joint pain Somatic dysfunction of head region Somatic dysfunction of cervical region Somatic dysfunction of thoracic region Somatic dysfunction of lumbar region Somatic dysfunction of sacral region Somatic dysfunction of pelvis region Somatic dysfunction of upper extremity Orders Placed This Encounter Osteopathic manipulative treatment (OMT) Order Comments: This order was created via procedure documentation Patient presents for follow-up of right fourth finger pain and chronic right SI joint pain. Right fourth finger pain is the principal concern today, improving with OMT. Right SI joint pain is chronic, currently at baseline. Somatic dysfunction correlating with her symptoms was identified on exam today. OMT was performed today to improve function and reduce symptoms with good effect. See procedure note below. Return in about 3 weeks (around 12/24/2023). >50% of time spent on the date of service was dedicated to preparing to see the patient, [id number] patient care, completing clinical documentation, obtaining and/or reviewing separately obtained history, performing a medically appropriate examination, and counseling and educating the patient/family/caregiver . This note was partially generated using voice recognition software. It has been reviewed for typographical errors, however some may remain. Any questions regarding meaning or word use should be directed to the author. Tanika Alves DO 8:58 AM 12/03/2023 Procedure (more content not included)... Normal [facility] Osteopathic manipulative dominic atment (OMT)on 12-03-2023 Tanika Alves DO 12/03/2023 9:29 AM Osteopathic manipulative treatment (OMT) Time/Date:12/03/2023 9:27 AM Informed Consent Consent Obtained: Verbal Acworth Protocol SIGN IN Special Equipment: N/A Patient/Surrogate Stated/Verified: Patient name, Date of and Intended procedure TIME OUT Intended patient and procedure match the source document(s). Consent documented and matches the intended procedure. Consent Obtained:Verbal Body Regions: Head, Cervical, Thoracic, Lumbar, Sacrum, Pelvis and Upper Extremities Head Technique: Facilitated positional release Cervical Technique: balanced ligamentous tension Thoracic Technique: balanced ligamentous tension Lumbar Technique: balanced ligamentous tension Sacrum Technique: balanced ligamentous tension Pelvis Technique: facilitated positional release Upper Extremeties Technique: balanced ligamentous tension, myofascial release Number of Body Regions: 5- 6 Disposition: Osteopathic manipulation tolerated well, reports subjective and objective improvement, improvement in range of motion and mechanics, instructed to increase hydration for the next 24 hours and instructed to follow up if symptoms worsen or fail to improve [facility] [employer] Office Visit Reporton 11-21-2023 [employer] [facility] Office Visit Report [facility] [facility] [address], [address] [place] [address] OFFICE VISIT Date of Service: 11/21/23 MR#: [id number] Acct: [id number] Name: MARGOT HU Rep #: [id number] : 1970 Provider: Dr. Natalya Choudhary DO Age/Sex: 53/F [place] [facility] [place]: Signed Intake Vital Signs 07/30/23 11:59 11/06/23 06:32 11/21/23 12:14 11/21/23 12:16 Height 5 ft 11 in 5 ft 11 in 5 ft 11 in 5 ft 11 in Weight: 159 lb 8 oz BMI 22.2 BP 107/72 Intake Visit Reasons: 2 wk D C Manager Systems Required: No Is patient in pain?: No Allergies naproxen sodium (From Aleve) Allergy (Severe, Verified 11/21/23 12:14) Hives Penicillins (PCN) Allergy (Unknown, Verified 11/21/23 12:14) Unknown midodrine Allergy (Verified 11/21/23 12:14) Rash Sulfa (Sulfonamide Antibiotics) Adverse Reaction (Severe, Verified 11/21/23 12:14) Other Medications ???Medication ???Instructions ???Recorded ???Confirmed ???Type multivitamin,tx-iron-min erals 27 1 tab PO DAILY 01/29/17 11/21/23 History mg-0.4 mg tablet krill 1,000 mg-omega-3 170 mg-dha 1 cap PO BID 04/19/17 11/21/23 History 50 mg-epa 80 um-llfkop-rwmrm capsule (krill oil) cholecalciferol (vitamin D3) 125 5,000 unit PO DAILY 04/03/19 11/21/23 History mcg (5,000 unit) disintegrating tablet magnesium 30 mg tablet 30 mg PO DAILY 04/15/20 11/21/23 History melatonin 10 mg capsule 5 mg PO HS 04/15/20 11/21/23 History estradiol 0.05 mg/24 hr semiweekly 1 patch transdermal 2XW #24 ea 07/30/23 11/21/23 Rx transdermal patch (Vivelle-Dot) gabapentin 300 mg capsule 300 mg PO QHS #90 caps 11/21/23 11/21/23 Rx medroxyprogesterone 2.5 mg tablet 2.5 mg PO DAILY 11/21/23 11/21/23 History Post menopausal: No Patient : No : No COUNTS INCLUDE 234 BEDS AT THE [facility] Medical History Wears contact lenses Post-menopausal Open wound Non-smoker History of stress test History of echocardiogram Cardiology follow-up encounter PONV (postoperative nausea and vomiting) Tinnitus Preventative health care Dermatitis Cellulitis Menopausal hot flushes Anxiety SIBO Gastroenteritis IBS (irritable bowel syndrome) Goiter POTS (postural orthostatic tachycardia syndrome) Surgical History S/P cervical polypectomy History of thyroid surgery hemangeoma left elbow Mucinous cystadenoma of right ovary Tendinopathy of right gluteal region Tendinopathy of left gluteus medius History of arthroscopy of left knee History of section History of tonsillectomy History of appendectomy left knee scope hemangeoma left elbow Right Mucinous Cystadenoma left glute medius tenson repair right glute medius tendon repair left knee scope History of History of tonsillectomy History of appendectomy Family History Mother Heart disease Hypertension Father Hypertension Arthritis Anxiety Hyperlipemia Grandfather Myocardial infarction, Onset Age: 60 Aunt Myocardial infarction, Onset Age: 75 CLL (chronic lymphocytic leukemia) Social History household members: spouse and children Smoking Status: Never smoker alcohol intake: current alcohol intake frequency: holidays/special occasions only substance use type: does not use caffeine: Yes what type of physical activity do you participate in: walking, yoga and aerobics frequency: 5-6 times per week HPI 2 wk D C Details: MARGOT HU is a 53 year old who presents for 2 week post op visit. She is status post D C polypectomy. The pathology showed that the multiple areas that were thought to be polyps were just proliferative tissue. She still has some minor bleeding ROS ENT ENT: Reports system reviewed and no additional complaints, except as documented Cardio Card: Reports system reviewed and no additional complaints, except as documented Resp Resp: Denies cough, dyspnea or dyspnea on exertion GI GI: Denies abdominal pain, bloating or change in bowel habits : Denies vaginal odor or vaginal pruritus Musc Musc: Reports system reviewed and no additional complaints, except as documented Exam Const General: cooperative, healthy appearing and comfortable Resp Effort Inspection: normal respiratory effort GI Palpation: soft and nontender Rectal Exam: other Extrem General: no edema Coding Level of Care Code Off vis,est,level 3 Diagnoses Postmenopausal bleeding N95.0 Assessment and Plan Assessment and Plan (1) Postmenopausal bleeding: Status: Acute Plan: pathology was benign. importance of continuing progesterone to prevent malignant transformation of endometrial t (more content not included)... Normal [facility] CNOVon 11-15-2023 CNOV Office Visit (OMMS) -------- MARGOT HU ([id number]) 1970 [facility] Date Time Provider Department 11/15/23 9:00 AM [facility] During your visit today, we recorded the following information about you: Temperature Pulse Blood pressure Weight 97.7 degrees 73/minute 105/67 72 kg Tanika Alves DO 11/15/2023 9:40 AM Signed Osteopathic Neuromusculoskeletal Medicine Progress Note Name: Margot Hu Date of : 1970 PCP: Ama Hamilton MD Date of Exam: November 15, 2023 SUBJECTIVE Chief Complaint: This is Margot Hu, a 53 year old female who presents with Patient presents with: SI Joint Pain: Right side. AMB ROOMING INTAKE FLOWSHEET DATA Pain Pain Level: 1 Pain Location: Back-Lower Description: Aching Duration Units: Months Frequency: Intermittent Intervention/Comfort measure: Medication, Reposition, Cold History of Present Illness: Patient presents for follow-up. After last osteopathic manipulative treatment she reports that she was doing fairly well, until late September when she was on a hiking trip in [place]. After returning from the trip, she noticed return of pain in her right SI joint, similar to prior. Is a mild but persistent aching. For the past several days it has been a little bit worse. Her left knee pain/swelling is resolved. The pain in the right fourth finger is also much improved, though still present, particularly in the morning. Notably, she recently had an injury at work in which a screw punctured her right hand, though the subsequent pain is gradually improving as well; the screw did not damage any neurovascular structures. Medical, surgical, and family histories reviewed. Allergies and social history reviewed. Review of Systems Musculoskeletal: Positive for arthralgias, joint swelling, myalgias and neck pain. Negative for back pain, gait problem and neck stiffness. Neurological: Negative for dizziness, weakness, numbness and headaches. OBJECTIVE BP 105/67 Pulse 73 Temp (Src) 97.7 (Temporal) Wt 158 lb 11.7 oz (72.0kg) LMP 10/25/2023 Physical Exam Vitals and nursing note reviewed. Constitutional: General: She is not in acute distress. HENT: Head: Normocephalic and atraumatic. Pulmonary: Effort: Pulmonary effort is normal. Abdominal: General: There is no distension. Palpations: Abdomen is soft. Musculoskeletal: Cervical back: Neck supple. No pain with movement, spinous process tenderness or muscular tenderness. Decreased range of motion. Thoracic back: No spasms, tenderness or bony tenderness. Decreased range of motion. Lumbar back: No spasms, tenderness or bony tenderness. Decreased range of motion. Skin: General: Skin is warm and dry. Neurological: Mental Status: She is alert. Mental status is at baseline. Psychiatric: Mood and Affect: Mood normal. Somatic Dysfunction by Body Region: Cervical: Left-sided paraspinal hypertonicity; C5 rotated left and C7 rotated right Thoracic: T6 extended, rotated and side bent right Lumbar: L2-L5 neutral, sidebent right rotated left Sacral: Right posterior base Pelvis: Right innominate anteriorly rotated Upper extremities: Right fourth metacarpal tight; right olecranon radially deviated ASSESSMENT AND PLAN Chronic right si joint pain (primary encounter diagnosis) Tendinopathy of gluteus medius Right hand pain Somatic dysfunction of cervical region Somatic dysfunction of thoracic region Somatic dysfunction of lumbar region Somatic dysfunction of sacral region Somatic dysfunction of pelvis region Somatic dysfunction of upper extremity Orders Placed This Encounter Osteopathic manipulative treatment (OMT) Order Comments: This order was created via procedure documentation Patient presents for follow-up of right SI joint pain which has flared up again in the past several weeks. Also presenting for follow-up of right finger pain. Somatic dysfunction correlating with her symptoms was identified on exam today. OMT was performed today to improve function and reduce symptoms with good effect. See procedure note below. Return in about 4 weeks (around 12/13/2023). >50% of time spent on the date of service was dedicated to preparing to see the patient, [id number] patient care, completing clinical documentation, obtaining and/or reviewing separately obtained history, performing a medically appropriate examination, and counseling and educating the patient/family/caregiver . The patient was seen, evaluated, and treated with the assistance of Dr. Natali Spann DO, PGY-IV ON. This note was partially generated using voice recognition software. It has been reviewed for typographical errors, however some may remain. Any questions regarding meaning or word use should be directed to the author. Tanika Alves DO 9:00 AM 11/14 (more content not included)... Normal [facility] Osteopathic manipulative dominic atment (OMT)on 11-15-2023 Tanika Alves DO 11/15/2023 9:40 AM Osteopathic manipulative treatment (OMT) Time/Date:11/15/2023 9:37 AM Informed Consent Consent Obtained: Verbal Acworth Protocol SIGN IN Special Equipment: N/A Patient/Surrogate Stated/Verified: Patient name, Date of and Intended procedure TIME OUT Intended patient and procedure match the source document(s). Consent documented and matches the intended procedure. Consent Obtained:Verbal Body Regions: Cervical, Thoracic, Lumbar, Sacrum, Pelvis and Upper Extremities Cervical Technique: balanced ligamentous tension, facilitated positional release Thoracic Technique: balanced ligamentous tension Lumbar Technique: balanced ligamentous tension Sacrum Technique: myofascial release Pelvis Technique: balanced ligamentous tension Upper Extremeties Technique: balanced ligamentous tension Number of Body Regions: 5- 6 Disposition: Osteopathic manipulation tolerated well, reports subjective and objective improvement, improvement in range of motion and mechanics, instructed to increase hydration for the next 24 hours and instructed to follow up if symptoms worsen or fail to improve [facility] CBC-Complete Blood Cnt No Di ffon 11-06-2023 Erythrocyte distribution width (RBC) [Ratio] 13.0 % Normal 11.6-14.6 [facility] Comment on above: Performed By: #### B TSPAT, L100.0500 #### [facility] [address] [place], [address] Hematocrit (Bld) [Volume fraction] 38.5 % Normal 37-47 [facility] Comment on above: Performed By: #### B TSPAT, L100.0500 #### [facility] [address] [place], [address] Hemoglobin (Bld) [Mass/Vol] 12.8 g/dL Normal 12.0-15.0 [facility] Comment on above: Performed By: #### B TSPAT, L100.0500 #### [facility] [address] [place], [address] MCH (RBC) [Entitic mass] 32.2 pg High 27.0-32.0 [facility] Comment on above: Performed By: #### B TSPAT, L100.0500 #### [facility] [address] [place], [address] MCHC (RBC) [Mass/Vol] 33.2 g/dL Normal 32-36 [facility] Comment on above: Performed By: #### B TSPAT, L100.0500 #### [facility] [address] [place], [address] MCV (RBC) [Entitic vol] 96.7 fL Normal 81-99 [facility] Comment on above: Performed By: #### B TSPAT, L100.0500 #### [facility] [address] [place], [address] Platelet mean volume (Bld) [Entitic vol] 10.4 fL Normal 6.2-12.0 [facility] Comment on above: Performed By: #### B TSPAT, L100.0500 #### [facility] [address] [place], [address] Platelets (Bld) [#/Vol] 270 10*3/uL Normal 150-450 [facility] Comment on above: Performed By: #### B TSPAT, L100.0500 #### [facility] [address] [place], [address] RBC (Bld) [#/Vol] 3.98 10*6/uL Low 4.2-5.4 [facility] Comment on above: Performed By: #### B TSPAT, L100.0500 #### [facility] [address] [place], [address] RDW SD 46.6 fl High 35.1-43.9 [facility] Comment on above: Performed By: #### B TSPAT, L100.0500 #### [facility] [address] [place], [address] WBC (Bld) [#/Vol] 4.9 10*3/uL Normal 4.4-11.0 [facility] Comment on above: Performed By: #### B TSPAT, L100.0500 #### [facility] [address] [place], [address] Discharge Instructionon 10-24 Discharge Instruction [facility] Medical Records Department [address] [place] [address] Instructions for Home/Discharge Instructions 11/06/23 0713 MR#: [id number] Acct: [id number] Name: MARGOT HU Rep #: [id number] : 1970 53 From: Natalya Schaffer DO PCP: Dr. Ama Hamilton MD Status:REG [facility] Discharge Instructions Diet Discharge Diet: No restrictions Activity Discharge Activity: Return to Normal Activity, May Shower and May Take a Tub Bath (after 1 week) May resume sexual activity in: 1-2 weeks Weight Bearing Status: Weight bearing as tolerated Lifting Restrictions: none Additional Activity Instructions:: take 800 mg of ibuprofen every 8 hours as needed for pain and cramping. Dressing / Incision Call your doctor if you observe: Fever of 101 or Higher, Using more than 1 pad per hour, Shortness of breath and Uncontrolled pain Follow Up Care Please Follow Up With: Natalya Schaffer DO When: Call [phone] to schedule appointment. Test Results: Test results from this visit will be discussed in further detail at your follow-up appointment, if applicable. Discharge Plan Admission Attending Provider: Natalya Schaffer Primary Care Provider: Ama Hamilton Instructions Print Language: Kazakh Discharge Orders/Prescriptions Prescriptions: No Action vqeox-[id number]-vtm-fnn-lbvml ho-ast [krill oil] 1,342-339-45-50 mg capsule 1 cap PO BID melatonin 10 mg capsule 5 mg PO HS cholecalciferol (vitamin D3) 5,000 unit tablet,disintegrating 5,000 unit PO DAILY magnesium 30 mg tablet 30 mg PO DAILY medroxyprogesterone 2.5 mg tablet 2.5 mg PO DAILY Qty: 90 4RF gabapentin 300 mg capsule 300 mg PO QHS Qty: 90 4RF estradiol [Vivelle-Dot] 0.05 mg/24 hr patch semiweekly 1 patch transdermal 2XW Qty: 24 4RF Rx Instructions: apply 1 patch for 3 days alternating with 1 patch for 4 days each week for 3 wks per 4-wk cycle multivitamin,tx-iron-min erals 1 TABLET tablet 1 tab PO DAILY Referrals / Follow Up: Ama Hamilton MD [Primary Care Provider] - Disposition Disposition (needs filled in before D/C Order can be placed): Home, Self Care 08/713 Natalya Schaffer DO CC: Dr. Ama Hamilton MD Signed [facility] MR/POSTOP.ANEon 11-06-2023 MR/POSTOP.[facility] Medical Records Department [address] [place] [address] Anesthesia Postop Eval I 11/06/23 0806 MR#: [id number] Acct: [id number] Name: MARGOT HU WALTER Rep #: [id number] : 1970 53 From: Blessing Elizondo CRNA PCP: Dr. Ama Hamilton MD Status:REG SDC Y Race: C Location: [place] [address] Anesthesia: Postop Eval I Current Vital Signs Temperature: 98.2 F Pulse Rate: 72 Blood Pressure: 106/59 Respiratory Rate: 20 Pulse Ox: 95 Oxygen Delivery Method: Room Air Assessment Airway patent: Yes Spontaneous unlabored respirations: Yes Mental status: Awake and Calm nausea: No Vomiting: No Anesthesia Complication: No Fluid Hydration Crystalloid volume administer (ml): 500 Total IV fluid infused: 500 Progress Note Anesthesia document: Postop Eval 1 completed: Yes 11/06/23806 Date Blessing Elizondo CHEMICAL MANAGER Cosigner Signature: Date CC: Signed [facility] MR/TXSCMEOK0qy 11-06-2023 [facility] [address] [facility] [address] Anesthesia Postop Eval II 11/06/2353 MR#: [id number] Acct: [id number] Name: HUMARGOTNETTA WATSON Rep #: [id number] : 1970 53 From: Dank Ely MD PCP: Dr. Ama Hamilton MD Status:REG SDC Y Race: C Location: [place] [address] Anesthesia Postop Eval I Sum Postop Eval Completion status Anesthesia document: Postop Eval 1 completed: Yes Anesthesia Postop Eval I Summary Anesthesia Postop Eval I Summary: Anesthesia Postop Eval I: Assessment Summary Airway patent Yes 11/06/23 08:07 CHEMICAL MANAGER.JDEF Spontaneous unlabored Yes 11/06/23 08:07 CHEMICAL MANAGER.JDEF respirations Mental status Awake,Calm 11/06/23 08:07 CHEMICAL MANAGER.JDEF nausea No 11/06/23 08:07 CHEMICAL MANAGER.JDEF Vomiting No 11/06/23 08:07 CHEMICAL MANAGER.JDEF Anesthesia Postop Eval I: Fluid Summary Crystalloid volume administer 500 11/06/23 08:07 CHEMICAL MANAGER.JDEF (ml) Colloids volume administered ( ml) Blood Product volume administered (ml) Total IV fluid infused 500 11/06/23 08:07 CHEMICAL MANAGER.JDEF Anesthesia Postop Eval I: Summary Notes Anesthesia Complication No 11/06/23 08:07 CHEMICAL MANAGER.JDEF Anesthesia Complication Comment: Post-operative progress note Anesthesia: Postop Eval II Evaluation Mental status: Awake Pain Level: 0 nausea: No Vomiting: No 11/06/23 0853 Date Dank Ely MD Cosigner Signature: Date CC: Signed Normal [facility] Operative Reporton 4 Operative Report [facility] Medical Records Department [address] [place] [address] Operative Report 11/06/23 08 MR#: [id number] Acct: [id number] Name: MARGOT HU Rep #: [id number] : 1970 53 From: Natalya Schaffer DO PCP: Dr. Ama Hamilton MD Status:REG [facility] Location: [place] [address] Problems Associated Problem List Diagnoses (1) Polyp of cervix uteri: (2) Postmenopausal bleeding: Report of Operation Date of Procedure: 11/06/23 Pre-Operative Diagnosis: perimenopausal bleeding, ultrasound finding of polyp of cervix Post-Operative Diagnosis: perimenopausal bleeding, ultrasound finding of polyp of cervix Surgery/Procedure Performed:: hysteroscopy, symphion D C/polypectomy Description of Surgical Findings:: small cervical polyp like structures visualized. fluid deficit 600cc Surgeon: Natalya Schaffer die tripper: None Type of Anesthesia: MAC and Topical Anesth Anesthesiologist: Dank Ely Specimen's removed: endometrial curettings Estimated Blood Loss (mL): 5cc Description of Procedure: Patient was prepped and draped in a normal sterile fashion under MAC anesthesia. A weighted speculum was placed in the vagina and the anterior lip of the cervix was grasped with a single-tooth tenaculum. A paracervical block was placed with 1% lidocaine. Cervix was progressively dilated to allow passage of a 5 mm reseccting hysteroscope. The lining was fully visualized and noted to have polyp like stuctures in the cervix . The uterus sounded to 8 cm. Curettage was performed using the symphion. The device was pulled back into the cervix and polyp like structures were removed using the symphion. A sharp curettage was also performed, removing scan tissue. All specimens were sent to pathology. All instruments were removed from the vagina and excellent hemostasis was noted. Patient was awoken and taken to recovery in stable condition. Procedure Start Time: 07:47 Procedure Stop Time: 07:57 Complications none Admit VTE Documentation VTE Present on Admission: No VTE Mechan Device Prophylaxis: SCD's VTE Pharm Prophylaxis ordered?: No Multi Select Codes Urinary/Genital Urinary/Genital CPT Codes: 13034 Hysteroscopy,EMC, Polypectomy 11/06/23 0809 Cosigner Signature (if applicable): CC: Dr. Ama Hamilton MD; Dr. Natalya Schaffer DO Signed Normal [facility] Surgery Specimen Level Julissa 11-06-2023 Surgery Specimen Level IV Patient Age/Sex Location Account Attending Physician MARGOT HU 53/F [facility] [id number] Dr. Natalya Schaffer, Luis Specimen: [id number] Received: 11/06/23-122 Status: ASAEL Laguna Num: [id number] Spec Type: CHRISTIAN BX/C Enrique Dr: Dr. Natalya Schaffer, HEAD OPERATION: Hysteroscopy, Luis C, polypectomy PRE-OP DIAGNOSIS: Polyp of cervix uteri, post menopausal bleed TISSUE SUBMITTED: Endometrial curettings MICROSCOPIC DIAGNOSIS Endometrial curettings: Proliferative endometrium with glandular and stromal breakdown. Fragments of benign ectocervical and endocervical mucosa and mucous. Fragments of myometrium. NOREEN/ 11/07/2023 MICROSCOPIC DESCRIPTION Slides are reviewed. GROSS DESCRIPTION Received in fixative is one container labeled with the patient's name and designated Endometrial curettings. The specimen consists of multiple irregular fragments of pedro-pink soft tissue mixed with mucoid tissue that in aggregate measure 5.0 x 3.0 x 0.2 cm. The specimen is totally submitted in two cassettes. Aaron 11/06/2023 TC:5 CPT:06856 Patient Age/Sex Location Account Attending Physician MARGOT HU 53/F [facility] [id number] Luis Morrow Signed (signature on file) Dr. Cj Daniels MD 11/07/23 1116 Normal [facility] Comment on above: Performed By: #### P SUIV #### [facility] [address] [place], [place], [address] Type AND Screen - PAT ONLYon 11-06-2023 ABO and Rh group Nom (Bld) Blood group A Rh(D) positive Normal [facility] Comment on above: Order Comment: Reaso n for Laboratory Test PREOP [id number] No N N S 0600 D C Performed By: #### B TSPAT, L100.0500 #### [facility] [address] [place], [place], [address] CNOVon 11-02-2023 CNOV Office Visit ([facility] ) -------- MARGOT HU ([id number]) 1970 F [facility] Date Time Provider Department 11/02/23 8:45 AM EASTON PARKER During your visit today, we recorded the following information about you: Weight Height 71.7 kg 1.803 m Easton Parker MD 11/02/2023 9:05 AM Signed Patient presents with: Right Hand - Established Patient HISTORY OF PRESENT ILLNESS Margot Hu presents to the office for follow up of right hand puncture wound. The patient reports that the injury is still rather sore but is improving consistently. She notes that yesterday she was able to go without Aleve. No numbness or tingling. There has been some continued scant drainage. She has continued to work without any limitations. Location: Right hand Severity: 1 on a scale of 0-10 Duration of symptoms: 8 days Treatments tried include antibiotics, anti-inflammatories Symptoms have Improved REVIEW OF SYSTEMS Cardiovascular ROS:No history of chest pain, palpitation, orthopnea, cyanosis, pedal edema Neurologic ROS: Numbness and Tingling: No PAST MEDICAL HISTORY Past medical, surgical, family, and social histories have been reviewed and updated with the patient today and are located elsewhere in the medical record. Diabetes:No ALLERGIES ALLERGIES Allergen Reactions Sulfamethoxazole-Tr* Unknown Aleve [Naproxen] Hives Bactrim [Sulfametho* Other: See Comments Swollen joints Lactose Intolerance* Other: See Comments Gastric problems, swelling of lymph nodes Midodrine Rash Penicillins Unknown Childhood reaction. PHYSICAL EXAMINATION Ht 180.3 cm (5' 11) Wt 71.7 kg (158 lb) LMP 10/25/2023 (Exact Date) BMI 22.04 kg/m? Body mass index is 22.04 kg/m?. General Appearance Well appearing, alert, in no acute distress, well-hydrated, well nourished. Alert and oriented times: 3 Normal affect times: 3 Appears stated age and well nourished Gait and station:normal Right Upper Extremity Exam: Inspection shows minimal swelling Open wound has decreased in diameter Tenderness to palpation: Tenderness within the palm, within expectations ROM: Full composite fist, all digits tip to palm Sensation intact median, radial, ulnar nerve distribution 2+ radial pulse REVIEW OF STUDIES No new imaging obtained X-rays 10/25/23 3 views of the right hand: No acute fracture or dislocation. Joint spaces are maintained. There are multiple tiny densities between the third and fourth metatarsal heads which could be due to foreign bodies. ASSESSMENT AND PLAN ASSESSMENT/PLAN: 1. Puncture wound of right hand with foreign body, subsequent encounter - ICD9: V58.89, 882.1, ICD10: S61.441D The patient continues to make progress. We will plan on maintaining our current treatment regimen and she will complete the oral antibiotic therapy. We will follow-up in 1 month to ensure uneventful resolution. If there is any degree of worsening we have a plan for her to contact me and earlier follow-up will be arranged. All of her questions were answered to her satisfaction. Easton Parker MD Patient educated on wound care, range of motion exercises. Patient instructed to call the office with questions or concerns. Referring Provider: EASTON PARKER [[id number]] Allergies As of Date: 11/02/2023 Noted Allergy Reaction SULFAMETHOXAZOLE-TRIMETH OPRIM 04/11/2012 16 - Unknown ALEVE (NAPROXEN) 02/27/2013 4 - Hives BACTRIM (SULFAMETHOXAZOLE) 02/27/2013 14 - Other: See Comments Comments: Swollen joints LACTOSE INTOLERANCE (LACTASE) 02/27/2013 14 - Other: See Comments Comments: Gastric problems, swelling of lymph nodes MIDODRINE 06/01/2015 2 - Rash PENICILLINS 02/27/2013 16 - Unknown Comments: Childhood reaction. Date Reviewed: 11/02/2023 Reviewed by: Sofie Taylor LPN - Fully Assessed Reason for Visit: Established Patient [175] Primary Visit Diagnosis:Puncture wound of right hand with foreign body, subsequent encounter [S61.441D] Prescriptions as of 11/02/2023 - Estradiol (ZANDER) 0.0375 mg/24 hr Apply 1 Patch as directed two times a week. - mupirocin (BACTROBAN) 2 % ointment Apply to affected area three times a day for 10 days. - Biocidin Advanced Formula ([employer]) Take 5 Drops by mouth three times daily. - A-EB/H6 (Bright White Formulas) Take 1-2 drops daily, increase to 10 drops per day as tolerated. - Cortisol Masonry Installer 90 ct. (Integrative [employer]) Stress, blood sugar, thyroid/hormones/adrenal s/sleep/energy/anxiety Take 1 in AM and 1 before bed - Magnesium (Citrate) 150 mg (Pure Encapsulations) Take 4 capsules daily. - TherBiotic Complete 120 Ct[address] (Klaire/Prothera) Take 1 capsule by mouth once daily. - Vitamin D3 5000 U (Pure Encapsulations) Take 1 capsule by mouth daily with food. - melatonin 1 mg tablet Take 1 mg by mouth daily at bedtime. - MULTIVIT-MINERALS/FERROU S FUM (more content not included)... Normal [facility] Hazardous Waste Management Specialist Office Visit Reporton 10-29-2023 Hazardous Waste Management Specialist Office Visit Report [facility] [address] [place] [address] OFFICE VISIT Date of Service: 10/29/23 MR#: [id number] Acct: [id number] Name: MARGOT HU Rep #: [id number] : 1970 Provider: Dr. Natalya Choudhary DO Age/Sex: 52/F [place] [facility] [place]: Signed Intake Vital Signs 07/30/23 11:59 10/29/23 15:38 10/29/23 15:40 Height 5 ft 11 in 5 ft 11 in 5 ft 11 in Weight: 159 lb 2 oz 160 lb BMI 22.1 22.3 BP 110/72 126/84 H Intake Visit Reasons: D C polypectomy Manager Systems Required: No Is patient in pain?: No Allergies naproxen sodium (From Aleve) Allergy (Severe, Verified 10/29/23 15:38) Hives Penicillins (PCN) Allergy (Unknown, Verified 10/29/23 15:38) Unknown midodrine Allergy (Verified 10/29/23 15:38) Rash Sulfa (Sulfonamide Antibiotics) Adverse Reaction (Severe, Verified 10/29/23 15:38) Other Medications ???Medication ???Instructions ???Recorded ???Confirmed ???Type multivitamin,tx-iron-min erals 27 1 tab PO DAILY 01/29/17 10/29/23 History mg-0.4 mg tablet krill 1,000 mg-omega-3 170 mg-dha 1 cap PO BID 04/19/17 10/29/23 History 50 mg-epa 80 [id number] capsule (krill oil) cholecalciferol (vitamin D3) 125 5,000 unit PO DAILY 04/03/19 10/29/23 History mcg (5,000 unit) disintegrating tablet magnesium 30 mg tablet 30 mg PO DAILY 04/15/20 10/29/23 History melatonin 10 mg capsule 5 mg PO HS 04/15/20 10/29/23 History gabapentin 300 mg capsule 300 mg PO QHS #90 caps 11/01/22 10/29/23 Rx medroxyprogesterone 2.5 mg tablet 2.5 mg PO DAILY #90 tabs 11/01/22 10/29/23 Rx estradiol 0.05 mg/24 hr semiweekly 1 patch transdermal 2XW #24 ea 07/30/23 10/29/23 Rx transdermal patch (Vivelle-Dot) Post menopausal: No Patient : No : No PFSH Medical History Wears contact lenses Post-menopausal Open wound Non-smoker History of stress test History of echocardiogram Cardiology follow-up encounter PONV (postoperative nausea and vomiting) Tinnitus Preventative health care Dermatitis Cellulitis Menopausal hot flushes Anxiety SIBO Gastroenteritis IBS (irritable bowel syndrome) Goiter POTS (postural orthostatic tachycardia syndrome) Surgical History History of thyroid surgery hemangeoma left elbow Mucinous cystadenoma of right ovary Tendinopathy of right gluteal region Tendinopathy of left gluteus medius History of arthroscopy of left knee History of section History of tonsillectomy History of appendectomy left knee scope hemangeoma left elbow Right Mucinous Cystadenoma left glute medius tenson repair right glute medius tendon repair left knee scope History of History of tonsillectomy History of appendectomy Family History Mother Heart disease Hypertension Father Hypertension Arthritis Anxiety Hyperlipemia Grandfather Myocardial infarction, Onset Age: 60 Aunt Myocardial infarction, Onset Age: 75 CLL (chronic lymphocytic leukemia) Social History household members: spouse and children Smoking Status: Never smoker alcohol intake: current alcohol intake frequency: holidays/special occasions only substance use type: does not use caffeine: Yes what type of physical activity do you participate in: walking, yoga and aerobics frequency: 5-6 times per week HPI D C polypectomy Details: MARGOT HU is a 52 year old who presents for a pre-op hysteroscopy d c polypectomy for cervical polyp. She has started to experience withdrawal bleeding from the progesterone recently when she went on her 1 week break. Plan is to do the D C first then re-evaluate after surgery about hormone changes causing some of the bleeding. ROS Const ROS Unobtainable: All systems reviewed are unremarkable except as noted in H Resp Resp: Reports system reviewed and no additional complaints, except as documented; Denies cough GI GI: Reports as per HPI Psych Psych: Reports system reviewed and no additional complaints, except as documented Exam Const General: cooperative, healthy appearing, comfortable and no acute distress Resp Effort Inspection: normal respiratory effort Skin General: no rashes or lesions noted Psych Appearance: grossly normal Speech and Movement: speech and movement normal Coding Level of Care Code Off vis,est,level 4 Diagnoses Polyp of cervix uteri N84.1 Postmenopausal bleeding N95.0 Female climacteric state N95.1 Assessment and Plan Assessment and Plan (1) Polyp of cervix uteri: Status: Acute (2) Postmenopausal bleeding: Status: Acute (3) (more content not included)... Normal [facility] CNOVon 10-26-2023 CNOV Office Visit (AGHWW1 ) -------- MARGOT HU ([id number]) 1970 [facility] Date Time Provider Department 10/26/23 10:00 AM EASTON PARKER AGHWW1 During your visit today, we recorded the following information about you: Temperature Weight Height 98.2 degrees 70.3 kg 1.803 m Cristóbal Lockhart Tech 10/30/2023 10:17 AM Signed REVIEW OF SYSTEMS: GENERAL: Well developed, well nourished. No acute distress PAIN: Negative for pain, history of chronic pain or current treatment for chronic pain conditions CARDIOVASCULAR: Negative for chest pain, leg swelling and palpations. MSK: Negative for joint swelling SKIN: Negative for lesions, rash, itching, metal sensitivity NEURO: Negative for seizure, trauma, numbness/tingling of extremities. ENDOCRINE: Negative for diabetic associated symptoms HEMATOLOGY: Negative for excessive bleeding, clots, bleeding disorders. Easton Parker MD 10/30/2023 10:17 AM Signed Patient presents with: Right Hand - New, Pain HISTORY OF PRESENT ILLNESS Margot Luis Hu is a 52 year old female right hand dominant who presents for evaluation of a puncture wound to the right hand. The patient sustained an injury at work yesterday when she was sitting in a chair which had broken and collapsed and a screw had penetrated the palmar aspect of the hand between the third and fourth metacarpals. She was evaluated at the emergency department and placed on antibiotics. She reports mild pain, no worsening. She has been tolerating the oral antibiotics. Ports no numbness or tingling. 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 Diabetes:No ALLERGIES ALLERGIES Allergen Reactions Sulfamethoxazole-Tr* Unknown Aleve [Naproxen] Hives Bactrim [Sulfametho* Other: See Comments Swollen joints Lactose Intolerance* Other: See Comments Gastric problems, swelling of lymph nodes Midodrine Rash Penicillins Unknown Childhood reaction. PHYSICAL EXAMINATION Temp 36.8 ?C (98.2 ?F) Ht 180.3 cm (5' 11) Wt 70.3 kg (155 lb) LMP 10/25/2023 (Exact Date) BMI 21.62 kg/m? Body mass index is 21.62 kg/m?. General Appearance Well appearing, alert, in no acute distress, well-hydrated, well nourished. Alert and oriented times: 3 Normal affect times: 3 Appears stated age and well nourished Gait and station:normal Right Upper Extremity Exam: Demonstrates a puncture wound between the third and fourth metacarpals roughly at the level of the distal palmar crease There is no active drainage Skin: WNL Tenderness to palpation: Mild tenderness in line with expectations No tenderness distally along the flexor sheath of either the middle or ring fingers ROM: Full composite fist Independent flexion of the FDS, FDP tendons of the middle, ring fingers is noted Instability: none Sensation:Normal sensation on the radial and ulnar aspect of the middle and ring fingers respectively Atrophy: None Brisk capillary refill REVIEW OF STUDIES X-rays 10/25/23 3 views of the right hand: No acute fracture or dislocation. Joint spaces are maintained. There are multiple tiny densities between the third and fourth metatarsal heads which could be due to foreign bodies. ASSESSMENT AND PLAN ASSESSMENT/PLAN: 1. Puncture wound of right hand with foreign body, initial encounter - ICD9: 882.1, ICD10: S61.441A (primary diagnosis) 2. Injury of right hand, initial encounter - ICD9: 959.4, ICD10: S69.91XA I reviewed the imaging with the patient. There is some radiopaque material within the hand although no sizable foreign body is noted. The puncture wound appears to have avoided the neurovascular bundles as well as the flexor sheaths. I recommended that we continue to treat this conservatively and that she continue out the oral antibiotics until completion. Will plan on following up next week to ensure uneventful healing. She may continue to work. All of her questions were answered to her satisfaction. Easton Parker MD Patient educated on wound care, antibiotic therapy. Patient instructed to call the office with questions or concerns. Referring Provider: ANTONIO VIVAR [[id number]] Allergies As of Date: 10/26/2023 Noted Allergy Reaction SULFAMETHOXAZOLE-TRIMETH OPRIM 04/11/2012 16 - Unknown ALEVE (NAPROXEN) 02/27/2013 4 - Hives BACTRIM (SULFAMETHOXAZOLE) 02/27/2013 14 - Other: (more content not included)... Normal [facility] CNOVon 10-25-2023 CNOV Office Visit (UCWSTR ) -------- MARGOT HU ([id number]) 1970 F [facility] Date Time Provider Department 10/25/23 10:45 AM ANTONIO VIVAR [facility] During your visit today, we recorded the following information about you: Temperature Pulse Respiration Blood pressure 98.4 degrees 69/minute 18/minute 127/86 Weight Last Period 72 kg 10/25/23 Antonio Vivar APRN.GARMENT MANUFACTURER 10/25/2023 12:41 PM Signed Subjective HPI HPI Margot Hu is a 52 year old female who presents today for CC of right hand puncture. This started 1 hour ago. Has tried cleaning with soap/water/alcohol. Symptoms are worsened by rom. Unknown last tetanus. .Patient presents with: Trauma: [facility]-was at a pts home when lawn chair collapsed and a screw went through her R palm x 1 hr ago PAST MEDICAL HISTORY No date: Goiter No date: IBS (irritable bowel syndrome) No date: POTS (postural orthostatic tachycardia syndrome) No date: Raynaud's phenomenon PAST SURGICAL HISTORY No date: APPENDECTOMY 2004: ARTHROSCOPY KNEE DIAGNOSTIC W/WO SYNOVIAL BX SPX; Left Comment: Arthroscopy, knee 1996: DELIVERY ONLY 2016: ELBOW SURGERY HX; Left Comment: excission mass left elbow right ovary Mar 2012 : OOPHORECTOMY PARTIAL/TOTAL UNI/BI Comment: Mucinous cysadenoma 2009: PAST SURGICAL HISTORY OF; Right Comment: Gluteus medius tendon repair 2010: PAST SURGICAL HISTORY OF; Left Comment: Gluteus medius tendon repair 1987: TONSILLECTOMY HX ALLERGIES Sulfamethoxazole-Trimeth oprim, Aleve [Naproxen], Bactrim [Sulfamethoxazole], Lactose Intolerance [Lactase], Midodrine, and Penicillins MEDICATIONS Estradiol (ZANDER) 0.0375 mg/24 hr Apply 1 Patch as directed two times a week. Biocidin Advanced Formula ([employer]) Take 5 Drops by mouth three times daily. A-EB/H6 (Bright White Formulas) Take 1-2 drops daily, increase to 10 drops per day as tolerated. Cortisol Masonry Installer 90 ct. ([employer]) Stress, blood sugar, thyroid/hormones/adrenal s/sleep/energy/anxiety Take 1 in AM and 1 before bed Magnesium (Citrate) 150 mg (Pure Encapsulations) Take 4 capsules daily. TherBiotic Complete 120 Ct[address] (Klaire/Prothera) Take 1 capsule by mouth once daily. Vitamin D3 5000 U (Pure Encapsulations) Take 1 capsule by mouth daily with food. melatonin 1 mg tablet Take 1 mg by mouth daily at bedtime. MULTIVIT-MINERALS/FERROU S FUM (MULTI VITAMIN ORAL) Take by mouth once daily. ERGOCALCIFEROL, VITAMIN D2, (VITAMIN D ORAL) Take 1,000 Units by mouth once daily. VITAMIN B COMPLEX (B COMPLEX ORAL) Take 2 tablets by mouth once daily. FAMILY HISTORY Problem Relation Age of Onset other (htn) Father other (htn) Mother other (DM) Mother other (CLL) Maternal Aunt Ischemic Heart Disease Maternal Grandfather other (HOCM) Maternal Aunt Social History Tobacco Use Smoking status: Never Smokeless tobacco: Never Tobacco comments: No smoking in childhood or adult homes. Substance Use Topics Alcohol use: Yes Comment: Rarely. Drug use: No ROS Objective Blood pressure 127/86, pulse 69, temperature 36.9 ?C (98.4 ?F), resp. rate 18, weight 72 kg (158 lb 11.7 oz), last menstrual period 10/25/2023, SpO2 100%. Physical Exam Constitutional: General: She is not in acute distress. Appearance: She is not toxic-appearing or diaphoretic. HENT: Head: Normocephalic and atraumatic. Pulmonary: Effort: Pulmonary effort is normal. No accessory muscle usage or respiratory distress. Musculoskeletal: Hands: Neurological: Mental Status: She is alert and oriented to person, place, and time. ASSESSMENT/PLAN: 1. Foreign body of right hand, initial encounter - ICD9: 914.6, ICD10: S60.551A (primary diagnosis) Referred to ortho, appointment made 2. Injury of right hand, initial encounter - ICD9: 959.4, ICD10: S69.91XA Site covered Prophylactic atb ordered F/u for s/s infection. - XR HAND GENERAL 3V PA/LAT/OBL RIGHT IMPRESSION: Multiple tiny densities between the third and fourth metatarsal heads which could be due to foreign bodies Dictated by : MIKA PETE MD - CONSULT TO ORTHOPAEDICS - CEPHALEXIN 500 MG CAPSULE - MUPIROCIN 2 % TOPICAL OINTMENT 3. Need for tetanus booster - ICD9: V03.7, ICD10: Z23 - TDAP VACCINE, AGE 7+ YR (ADACEL, BOOSTRIX) Antonio Vivar APRN.GARMENT MANUFACTURER Referring Provider: SELF [[id number]] Allergies As of Date: 10/25/2023 Noted Allergy Reaction SULFAMETHOXAZOLE-TRIMETH OPRIM 04/11/2012 16 - Unknown ALEVE (NAPROXEN) 02/27/2013 4 - Hives BACTRIM (SULFAMETHOXAZOLE) 02/27/2013 14 - Other: See Comments Comments: Swollen joints LACTOSE INTOLERANCE (LACTASE) 02/27/2013 14 - Other: See Comments Comments: Gastric problems, swelling of lymph nodes MIDODRINE 06/01/2015 2 - Rash PENICILLINS 02/27/2013 16 - Unknown Comments: Childhood reaction. Date Reviewed: 10/25/2023 Reviewed by: Dasiy Vicente LPN - Fully Assessed Reaso (more content not included)... [facility] CNPNon 10-25-2023 CNPN Telephone (AGPOB3) -------- MARGOT HU ([id number]) 1970 [facility] Date Time Provider Department 10/25/23 AG ORTH AGPOB3 During your visit today, we recorded the following information about you: Blanca Mac 10/25/2023 11:42 AM Signed ----- Message from Marleen Combs sent at 10/25/2023 11:38 AM EDT ----- Regarding: Orthopedics / Hand: Laceration (Cut) / Workers Compensation Case Orthopedics / Hand: Laceration (Cut) / Workers Compensation Case Patient has been identified by name and Date of (Y/N): Y Patient: Margot Hu Date of : 1970 Previous Provider Seen: NA Body Part(s) Identified: Rt Hand Diagnosis/Reason For Visit: Puncture Wound Reason for the call/escalation: [facility]. Puncture wound occurred at work. If reason for call/escalation is discharge from ED/ER or Hospital, which facility was the patient seen at: na Was an appointment scheduled (Y/N): N-can not schedule worker's comp. Person calling if other than patient: pt Return call to if other than patient: pt Best contact number: [phone] Thank you, Marleen Combs October 25, 2023 11:39 AM Allergies As of Date: 10/25/2023 Noted Allergy Reaction SULFAMETHOXAZOLE-TRIMETH OPRIM 04/11/2012 16 - Unknown ALEVE (NAPROXEN) 02/27/2013 4 - Hives BACTRIM (SULFAMETHOXAZOLE) 02/27/2013 14 - Other: See Comments Comments: Swollen joints LACTOSE INTOLERANCE (LACTASE) 02/27/2013 14 - Other: See Comments Comments: Gastric problems, swelling of lymph nodes MIDODRINE 06/01/2015 2 - Rash PENICILLINS 02/27/2013 16 - Unknown Comments: Childhood reaction. Date Reviewed: 10/25/2023 Reviewed by: Daisy Vicente LPN - Fully Assessed Reason for Visit: ER F/U [41] Cmt: [facility] 10[facility] W/C Prescriptions as of 10/25/2023 - Estradiol (ZANDER) 0.0375 mg/24 hr Apply 1 Patch as directed two times a week. - cephALEXin (KEFLEX) 500 mg capsule Take 1 capsule by mouth two times a day for 5 days. - mupirocin (BACTROBAN) 2 % ointment Apply to affected area three times a day for 10 days. - Biocidin Advanced Formula ([employer]) Take 5 Drops by mouth three times daily. - A-EB/H6 (Bright White Formulas) Take 1-2 drops daily, increase to 10 drops per day as tolerated. - Cortisol Masonry Installer 90 ct. ([employer]) Stress, blood sugar, thyroid/hormones/adrenal s/sleep/energy/anxiety Take 1 in AM and 1 before bed - Magnesium (Citrate) 150 mg (Pure Encapsulations) Take 4 capsules daily. - TherBiotic Complete 120 Ct[address] (Klaire/Prothera) Take 1 capsule by mouth once daily. - Vitamin D3 5000 U (Pure Encapsulations) Take 1 capsule by mouth daily with food. - melatonin 1 mg tablet Take 1 mg by mouth daily at bedtime. - MULTIVIT-MINERALS/FERROU S FUM (MULTI VITAMIN ORAL) Take by mouth once daily. - ERGOCALCIFEROL, VITAMIN D2, (VITAMIN D ORAL) Take 1,000 Units by mouth once daily. - VITAMIN B COMPLEX (B COMPLEX ORAL) Take 2 tablets by mouth once daily. Problem List As Of Date 10/25/2023 Noted Resolved Weakness [R53.1] 02/27/2013 Tachycardia [R00.0] 02/27/2013 06/07/2017 Abdominal pain, other specified site [R10.9] 02/27/2013 06/07/2017 Diarrhea [R19.7] 02/27/2013 06/07/2017 Muscle tear [T14.8XXA] 04/23/2013 06/07/2017 Orthostatic hypotension [I95.1] 04/23/2013 06/07/2017 POTS (postural orthostatic tachycardia syndrome*09/14/2013 06/07/2017 Mass of elbow region [R22.30] 11/03/2015 Raynaud's phenomenon [I73.00] [place]'s thyroiditis [E06.3] 01/24/2017 Thyroid mass [E07.9] 01/24/2017 06/07/2017 S/P partial thyroidectomy [E89.0] 09/13/2017 Hand pain [M79.643] 06/10/2018 Constipation [K59.00] 06/10/2018 Bloating [R14.0] 06/10/2018 Insomnia [G47.00] 06/10/2018 IBS (irritable bowel syndrome) [K58.9] 06/10/2018 Small intestinal bacterial overgrowth [K63.8219]08/13/2018 Encounter Status:Closed by BLANCA MAC on 10/25/23 Normal [facility] XR HAND 3V PA/LAT/OBL RTon 0 10-25-2023 XR HAND 3V PA/LAT/OBL RT * * *Final Report* * * DATE OF EXAM: Oct 25 2023 11:15AM WOX [id number] - XR HAND 3V PA/LAT/OBL RT / PROCEDURE REASON: Injury of right hand, initial encounter * * * * Physician Interpretation * * * * EXAMINATION: XR HAND 3V PA/LAT/OBL RT CLINICAL HISTORY: Right hand pain after trauma Technique: XR HAND 3V PA/LAT/OBL RT -- RIGHT with 3 views on 3 images Comparison: X-ray bilateral hands 05/22/2018 RESULT: No acute fracture or dislocation. Joint spaces are maintained. There are multiple tiny densities between the third and fourth metatarsal heads which could be due to foreign bodies. IMPRESSION: Multiple tiny densities between the third and fourth metatarsal heads which could be due to foreign bodies Auto Bench Mechanic: PSCB Transcribe Date/Time: Oct 25 2023 11:26A Dictated by : MIKA PETE MD This examination was interpreted and the report reviewed and electronically signed by: MIKA PETE MD on Oct 25 2023 11:28AM EST [id number] Normal [facility] XR Hand - right PA and Later al and Obliqueon 10-25-2023 IMPRESSION: Multiple tiny densities between the third and fourth metatarsal heads which could be due to foreign bodies Auto Bench Mechanic: JESUS Transcribe Date/Time: Oct 25 2023 11:26A Dictated by : MIKA PETE MD This examination was interpreted and the report reviewed and electronically signed by: MIKA PETE MD on Oct 25 2023 11:28AM [facility] DIVISION OF RADIOLOGY * * *Final Report* * * DATE OF EXAM: Oct 25 2023 11:15AM WOX [id number] - XR HAND 3V PA/LAT/OBL RT / PROCEDURE REASON: Injury of right hand, initial encounter * * * * Physician Interpretation * * * * EXAMINATION: XR HAND 3V PA/LAT/OBL RT CLINICAL HISTORY: Right hand pain after trauma Technique: XR HAND 3V PA/LAT/OBL RT -- RIGHT with 3 views on 3 images Comparison: X-ray bilateral hands 05/22/2018 RESULT: No acute fracture or dislocation. Joint spaces are maintained. There are multiple tiny densities between the third and fourth metatarsal heads which could be due to foreign bodies. DIVISION OF RADIOLOGY Provider, [facility] - 10/25/2023 * * *Final Report* * * DATE OF EXAM: Oct 25 2023 11:15AM WOX [id number] - XR HAND 3V PA/LAT/OBL RT / PROCEDURE REASON: Injury of right hand, initial encounter * * * * Physician Interpretation * * * * EXAMINATION: XR HAND 3V PA/LAT/OBL RT CLINICAL HISTORY: Right hand pain after trauma Technique: XR HAND 3V PA/LAT/OBL RT -- RIGHT with 3 views on 3 images Comparison: X-ray bilateral hands 05/22/2018 RESULT: No acute fracture or dislocation. Joint spaces are maintained. There are multiple tiny densities between the third and fourth metatarsal heads which could be due to foreign bodies. IMPRESSION IMPRESSION: Multiple tiny densities between the third and fourth metatarsal heads which could be due to foreign bodies Auto Bench Mechanic: JESUS Transcribe Date/Time: Oct 25 2023 11:26A Dictated by : MIKA PETE MD This examination was interpreted and the report reviewed and electronically signed by: MIKA PETE MD on Oct 25 2023 11:28AM [facility] Radiology Study [facility]narrative[facility] - [facility] PA and Later al and ObliqueOrdered By: [facility] Provider on 10-25-2023 [facility] [facility] CNOVon 10-02-2023 CNOV Office Visit (OMMS) -------- MARGOT HU ([id number]) 1970 F [facility] Date Time Provider Department 10/02/23 8:30 AM [facility] During your visit today, we recorded the following information about you: Temperature Pulse Blood pressure Weight 97.6 degrees 70/minute 105/63 72.1 kg Tanika Alves DO 10/02/2023 9:15 AM Signed Osteopathic Neuromusculoskeletal Medicine Progress Note Name: Margot Hu Date of : 1970 PCP: Ama Hamilton MD Date of Exam: October 02, 2023 SUBJECTIVE Chief Complaint: This is Margot Hu, a 52 year old female who presents with Patient presents with: Back Pain AMB ROOMING INTAKE FLOWSHEET DATA Pain Pain Level: 2 Pain Location: Back Description: Aching Duration Amount of Time: 6 Duration Units: Years Frequency: Intermittent Intervention/Comfort measure: Exercise, Reposition, Relaxation History of Present Illness: Patient presents for follow-up. She reports that her lower back pain is doing quite well; she did have a flareup several days ago however it self resolved. She is not having any back pain at all today. However, she does direct attention to her right fourth finger which, in mid July 2023 she injured it while doing aerial yoga (the finger caught in the silk), bruising immediate onset of severe pain in that finger with any movement. Over time, it has gotten better, however it has remained radially deviated at the PIP and painful to move; she has not been able to take a manual blood pressure with her right hand (which is her dominant hand) due to the pain. Other concerns today include posterior left knee pain, which comes and goes and is presently mild to moderate in intensity; sometimes it feels like she is developing a Yepez's cyst, but she is usually able to pushed down. Her right IT band is tight and aching. There is some stiffness and tightness in the neck and upper back as well. These are chronic issues that are present intermittently. Medical, surgical, and family histories reviewed. Allergies and social history reviewed. Review of Systems Musculoskeletal: Positive for arthralgias, joint swelling, myalgias and neck pain. Negative for back pain, gait problem and neck stiffness. Neurological: Negative for dizziness, weakness, numbness and headaches. OBJECTIVE BP 105/63 Pulse 70 Temp (Src) 97.6 (Temporal) Wt 158 lb 15.2 oz (72.1kg) LMP 06/11/2017 Physical Exam Vitals and nursing note reviewed. Constitutional: General: She is not in acute distress. HENT: Head: Normocephalic and atraumatic. Pulmonary: Effort: Pulmonary effort is normal. Abdominal: General: There is no distension. Palpations: Abdomen is soft. Musculoskeletal: Cervical back: Neck supple. No pain with movement, spinous process tenderness or muscular tenderness. Decreased range of motion. Thoracic back: No spasms, tenderness or bony tenderness. Decreased range of motion. Lumbar back: No spasms, tenderness or bony tenderness. Decreased range of motion. Comments: Tenderness and slight radial deviation of the right fourth PIP. Minimal swelling. No swelling noted in the left knee today, though there is some muscle hypertonicity. Right IT band tender. Skin: General: Skin is warm and dry. Neurological: Mental Status: She is alert. Mental status is at baseline. Psychiatric: Mood and Affect: Mood normal. Somatic Dysfunction by Body Region: Head: Suboccipital hypertonicity; OA flexed, side bent right and rotated left Cervical: C3 and C6 bilaterally restricted; C4 flexed, rotated and side bent left Thoracic: Bilateral paraspinal hypertonicity; T2 extended, rotated and side bent left Lumbar: L4 extended, rotated and side bent right Pelvis: Left innominate posteriorly rotated Upper extremities: Right fourth PIP radially deviated Lower extremities: Left hamstrings and gastrocnemius hypertonicity; left tibia externally rotated; left fibular head posterior ASSESSMENT AND PLAN Finger pain, right (primary encounter diagnosis) It band syndrome, right Chronic pain of left knee Neck pain Somatic dysfunction of head region Somatic dysfunction of cervical region Somatic dysfunction of thoracic region Somatic dysfunction of lumbar region Somatic dysfunction of pelvis region Somatic dysfunction of lower extremity Somatic dysfunction of upper extremity Orders Placed This Encounter Osteopathic manipulative treatment (OMT) Order Comments: This order was created via procedure documentation Patient presents for follow-up, chief complaints today being pain in the right fourth finger, the left knee, the neck, and the right IT band. These chronic issues have responded well to OMT in the past. Finger pain specifically is acute, related to injury doing aerial yoga. Somatic dysfunction correlating with he (more content not included)... Normal [facility] Osteopathic manipulative dominic atment (OMT)on 10-02-2023 Tanika Alves DO 10/02/2023 9:15 AM Osteopathic manipulative treatment (OMT) Time/Date:10/02/2023 9:09 AM Informed Consent Consent Obtained: Verbal Acworth Protocol SIGN IN Special Equipment: N/A Patient/Surrogate Stated/Verified: Patient name, Date of and Intended procedure TIME OUT Intended patient and procedure match the source document(s). Consent documented and matches the intended procedure. Consent Obtained:Verbal Body Regions: Head, Cervical, Thoracic, Lumbar, Pelvis, Upper Extremities and Lower Extremities Head Technique: balanced ligamentous tension, suboccipital release Cervical Technique: articulatory, facilitated positional release Thoracic Technique: balanced ligamentous tension, progressive inhibition of neuromusculoskeletal structures Lumbar Technique: balanced ligamentous tension Pelvis Technique: facilitated positional release Upper Extremeties Technique: articulatory Lower Extremities Technique:balanced ligamentous tension, progressive inhibition of neuromusculoskeletal structures Number of Body Regions: 7- 8 Disposition: Osteopathic manipulation tolerated well, reports subjective and objective improvement, improvement in range of motion and mechanics, instructed to increase hydration for the next 24 hours and instructed to follow up if symptoms worsen or fail to improve [facility] Cervical or vaginal specimen microscopic examination by liquid based cytology (reportOrdered By: Natalya Aguero on 07-30-2023 Cytology report Cyto stain.thin prep Doc (Cvx/Vag) Comment . [facility] Comment on above: Criteria not met, HP V Genotype not performed.Performed at: [address] [id number] Director: Kesha Mcclellan MD, Phone: [phone] at: =[facility] [id number] Director: Kesha Mcclellan MD, Phone: [phone] Cervical or vagninal specime n microscopic examination by cytology stain (reported asOrdered By: Natalya Aguero on 07-30-2023 Cytology report Cyto stain Doc (Cvx/Vag) Comment . [facility] Comment on above: The Pap smear is a s creening test designed to aid in thedetection of premalignant and malignant conditions of theuterine cervix. It is not a diagnostic procedure andshould not be used as the sole means of detecting cervicalcancer. Both false-positive and false-negative reports dooccur. Detection in cervical specim en of any of human papilloma virus (HPV) 16, 18, 31, 33,Ordered By: Natalya Aguero on 07-30-2023 HPV 16+18+31+33+35+39+45+51 +52+56+58+59+66+68 DNA Probe+sig amp Ql (Cvx) Negative Negative [facility] Comment on above: This nucleic acid am plification test detects fourteen high-risk HPV types (16,18,31,33,35,39,45,51,52,56,58,59,66,68)without differentiation. Laboratory - CytologyOrdered By: Natalya Aguero on 07-30-2023 [employer] Cyto stain Nom (Cvx/Vag) [ID] Comment . [facility] Comment on above: Symone Eller, Cyto technologist (ASCP) Laboratory - Miscellaneous t estsOrdered By: Natalya Aguero on 07-30-2023 Service comment (Unsp spec) [Interp] . . [facility] Thin prep Papanicolaou smear with manual screeningOrdered By: Natalya Aguero on 07-30-2023 Thin prep Papanicolaou smear with manual screening Comment . [facility] Comment on above: NEGATIVE FOR INTRAEP ITHELIAL LESION OR MALIGNANCY. This liquid based Th inPrep(R) pap test was screened withthe use of an image guided system. Osteopathic manipulative dominic atment (OMT)on 07-25-2023 Tanika Alves DO 07/25/2023 9:01 AM Osteopathic manipulative treatment (OMT) Time/Date:07/25/2023 8:58 AM Informed Consent Consent Obtained: Verbal Acworth Protocol SIGN IN Special Equipment: N/A Patient/Surrogate Stated/Verified: Patient name, Date of and Intended procedure TIME OUT Intended patient and procedure match the source document(s). Consent documented and matches the intended procedure. Consent Obtained:Verbal Body Regions: Head, Cervical, Thoracic, Lumbar, Sacrum, Pelvis and Lower Extremities Head Technique: balanced ligamentous tension Cervical Technique: balanced ligamentous tension Thoracic Technique: balanced ligamentous tension, facilitated positional release, progressive inhibition of neuromusculoskeletal structures Lumbar Technique: balanced ligamentous tension Sacrum Technique: balanced ligamentous tension Pelvis Technique: myofascial release Lower Extremities Technique:counterstrain Number of Body Regions: 7- 8 Disposition: Osteopathic manipulation tolerated well, reports subjective and objective improvement, improvement in range of motion and mechanics, instructed to increase hydration for the next 24 hours and instructed to follow up if symptoms worsen or fail to improve [facility] Absolute lymphocyte countOrd ered By: Ama Hamilton on 10-23-2022 Lymphocytes Auto (Unsp spec) [#/Vol] 1.43 10*3/uL 0.83-4.51 [facility] Basophil percentageOrdered B y: Ama Hamilton on 10-23-2022 Basophils/100 WBC (Bld) 0.5 % 0-1 [facility] Bilirubin [Mass/Vol] 0.50 mg/dL 0.20-1.00 [facility] Comment on above: For patients on eltr ombopag therapy, use of Dimension Brantley TBIL is not recommended. Chloride [Moles/Vol] 104 mmol/L 98-107 [facility] Cholesterol [Mass/Vol] 109 mg/dL <200 [facility] Comment on above: <200 mg/dL Desirable 200-240 mg/dL Borderline >240 mg/dL High Risk Eosinophils/100 WBC (Bld) 0.7 % 0-5 [facility] Glucose [Mass/Vol] 105 mg/dL 74-106 [facility] Comment on above: Fasting Glucose resu lt from 100 to 125 mg/dL suggests IMPAIRED HOMEOSTASIS per A.D.A. criteria. Neutrophils (Bld) [#/Vol] 3.7 10*3/uL 2.0-7.7 [facility] Neutrophils/100 WBC (Bld) 67.2 % 47-70 [facility] Potassium [Moles/Vol] 4.3 mmol/L 3.5-5.1 [facility] Protein [Mass/Vol] 6.4 g/dL 6.4-8.2 [facility] Sodium [Moles/Vol] 138 mmol/L 136-145 [facility] Triglyceride [Mass/Vol] 146 mg/dL <199 [facility] Comment on above: The drugs N-Acetylcy steine and Metamizole may falsely depress this assay.Serum Triglycerides Reference Interval Normal <150 mg/dL Borderline high 150 - 199 mg/dL High 200 - 499 mg/dL Very High > or = 500 mg/dL WBC (Bld) [#/Vol] 5.5 10*3/uL 4.4-11.0 [facility] Blood erythrocytes count (nu mber/volume)Ordered By: Ama Hamilton on 10-23-2022 RBC (Bld) [#/Vol] 4.09 10*6/uL 4.2-5.4 [facility] Blood hemoglobin measurement (mass/volume)Ordered By: Ama Hamilton on 10-23-2022 Hemoglobin (Bld) [Mass/Vol] 13.1 g/dL 12.0-15.0 [facility] Blood lymphocytes/100 leukoc ytesOrdered By: Ama Hamilton on 10-23-2022 Lymphocytes/100 WBC (Bld) 25.9 % 19-41 [facility] Blood monocytes/100 leukocyt esOrdered By: Ama Hamilton on 10-23-2022 Monocytes/100 WBC (Bld) 5.3 % 0-10 [facility] Blood platelet mean volumeOr dered By: Ama Hamilton on 10-23-2022 Platelet mean volume (Bld) [Entitic vol] 10.4 fL 6.2-12.0 [facility] Determination of erythrocyte mean corpuscular volume (MCV)Ordered By: Ama Hamilton on 10-23-2022 MCV (RBC) [Entitic vol] 98.5 fL 81-99 [facility] Hematocrit Auto (Bld) [Volum e fraction]Ordered By: Ama Hamilton on 10-23-2022 Hematocrit (Bld) [Volume fraction] 40.3 % 37-47 [facility] Laboratory - Chemistry and C hemistry - challengeOrdered By: Ama Hamilton on 10-23-2022 ALP [Catalytic activity/Vol] 57 U/L 45-117 [facility] ALT [Catalytic activity/Vol] 27 U/L 13-56 [facility] CO2 [Moles/Vol] 30.0 mmol/L 21.0-32.0 [facility] Globulin (S) [Mass/Vol] 2.7 g/dL 2.2-4.2 [facility] Urea nitrogen/Creatinine [Mass ratio] 12.5 mg/mg 10-20 [facility] Laboratory - Hematology and Cell countsOrdered By: Aidenutriosocuong Hamilton on 10-23-2022 Erythrocyte distribution width (RBC) [Entitic vol] 48.3 fL 35.1-43.9 [facility] Erythrocyte distribution width (RBC) [Ratio] 13.3 % 11.6-14.6 [facility] Immature granulocytes/100 WBC (Bld) 0.400 % 0.0-0.9 [facility] Comment on above: IG% - Immature Granu locytes (promyelocytes, myelocytes and metamyelocytes) > 1% indicates that a LEFT SHIFT is Present. MCH (RBC) [Entitic mass] 32.0 pg 27.0-32.0 [facility] Nucleated RBC/100 WBC (Bld) [Ratio] 0 % 0-5 [facility] MCHC Auto (RBC) [Mass/Vol]Or dered By: Ama Hamilton on 10-23-2022 MCHC (RBC) [Mass/Vol] 32.5 g/dL 32-36 [facility] No Panel InformationOrdered By: Ama Hamilton on 10-23-2022 Estimated GFR (MDRD) Amer 78 mL/min >60 [facility] Comment on above: GFR Calc Estimated GFR (MDRD) Non-Af Amer 65 mL/min >60 [facility] Comment on above: Non- GFR Calc Thyroid Stimulating Hormone (TSH) 0.63 uIU/mL 0.358-3.74 [facility] Platelets bldOrdered By: Timoteodaysi hernandez Brunochristaldaysi on 10-23-2022 Platelets (Bld) [#/Vol] 355 10*3/uL 150-450 [facility] Serum or plasma albumin renee urement (mass/volume)Ordered By: Ama Hamilton on 10-23-2022 Albumin [Mass/Vol] 3.7 g/dL 3.2-5.0 [facility] Serum or plasma albumin/glob ulin mass ratioOrdered By: Ama Hamilton on 10-23-2022 Albumin/Globulin [Mass ratio] 1.4 {ratio} 0.9-2.4 [facility] Serum or plasma calcium renee urement (mass/volume)Ordered By: Ama Hamilton on 10-23-2022 Calcium [Mass/Vol] 8.7 mg/dL 8.5-10.1 [facility] Serum or plasma cholesterol in HDL measurement (mass/volume)Ordered By: Ama Hamilton on 10-23-2022 Cholesterol in HDL [Mass/Vol] 52 mg/dL >40 [facility] Comment on above: The drugs N-Acetylcy steine and Metamizole may falsely depress this assay. Reference Range HDL <40 mg/dL Low HDL Cholesterol HDL >or= 60 mg/dL High HDL Cholesterol Serum or plasma cholesterol in VLDL measurement (mass/volume)Ordered By: Ama Hamilton on 10-23-2022 Cholesterol in VLDL [Mass/Vol] 29 mg/dL 5-40 [facility] Serum or plasma creatinine m easurement (mass/volume)Ordered By: Ama Hamilton on 10-23-2022 Creatinine [Mass/Vol] 0.96 mg/dL 0.55-1.02 [facility] Comment on above: The validity of the calculated GFR & GFRAA in patients over 70 years has not been determined. Clinical correlation is essential. Serum or plasma low density lipoprotein (LDL) cholesterol measurement (mass/volume)Ordered By: Ama Hamilton on 10-23-2022 Cholesterol in LDL [Mass/Vol] 28 mg/dL 0-130 [facility] Serum or plasma urea nitroge n measurement (mass/volume)Ordered By: Ama Hamilton on 10-23-2022 Urea nitrogen [Mass/Vol] 12 mg/dL 7-18 [facility] Thin prep Papanicolaou smear with manual screeningOrdered By: Ama Hamilton on 10-23-2022 Thin prep Papanicolaou smear with manual screening 21 U/L 15-37 [facility] Thin prep Papanicolaou smear with manual screening 4 5-15 [facility] Laboratory - Microbiology an d Antimicrobial susceptibilityOrdered By: Anastasia Irving on 02-27-2022 SARS-CoV-2 (COVID-19) RNA SANDIE+probe Ql (Unsp spec) Not detected Not Detect [facility] Comment on above: Normal Reference Ran ge: Not DetectedMethod:(RT-PCR) real-time reverse transcriptase PCRLuminex Needish Instrument*The Food and Drug Administration (FDA) has issued an Emergency Use Authorization (EAU) for the ALYSSA SARS-CoV-2 Assay for the rapid detection of the virus that causes COVID-19. This test has been validated, but the FDAs independent review of this validation is pending.*Negative results do not preclude infection and should not be used as the sole basis for treatment or patient management. Optimum specimen types and timing for peak viral levels during infections caused by SARS-CoV-2 have not been determined. Collection of multiple specimens from the same patient may be necessary to detect the virus. The possibility of a false negative result should be considered if the patient has clinical presentation or has had recent exposure. Basophil percentageOrdered B y: Dr. Funes on 02-23-2022 Basophil percentage 0 SEEN /hpf 0-5 [facility] Chloride [Moles/Vol] 102 mmol/L 98-107 [facility] Glucose [Mass/Vol] 96 mg/dL 74-106 [facility] Potassium [Moles/Vol] 3.7 mmol/L 3.5-5.1 [facility] Sodium [Moles/Vol] 139 mmol/L 136-145 [facility] Bilirubin Test strip Ql (U)O rdered By: Dr. Funes on 02-23-2022 Bilirubin Ql (U) Negative Negative [facility] Ketones Test strip Ql (U)Ord ered By: Dr. Funes on 02-23-2022 Ketones Ql (U) 150 mg/dl Negative [facility] Comment on above: CRITICAL VALUE *HCRI TICAL VALUE VERIFIED. CALLED TO CHAO CHAMPION (ER)02/23/22 1422 Nico Long.RESULTS READ BACK BY SAME. Laboratory - Chemistry and C hemistry - challengeOrdered By: Dr. Funes on 02-23-2022 CO2 [Moles/Vol] 32.0 mmol/L 21.0-32.0 [facility] Urea nitrogen/Creatinine [Mass ratio] 17.1 mg/mg 10-20 [facility] Mucus LM Ql (Urine sed)Order ed By: Dr. Funes on 02-23-2022 Mucus Ql (Urine sed) 0 SEEN /hpf [facility] Nitrite Test strip Ql (U)Ord ered By: Dr. Funes on 02-23-2022 Nitrite Ql (U) Negative Negative [facility] No Panel InformationOrdered By: Dr. Funes on 02-23-2022 Estimated Creatinine Clearance Calc 103.88 ml/min [facility] Estimated GFR (MDRD) Amer 112 mL/min >60 [facility] Comment on above: GFR Calc Estimated GFR (MDRD) Non-Af Amer 93 mL/min >60 [facility] Comment on above: Non- GFR Calc Influenza Types A,B Direct FA (AZAM) Influenzae A [facility] Protein Test strip Ql (U)Ord ered By: Dr. Funes on 02-23-2022 Protein Ql (U) 15 mg/dl Negative [facility] Serum or plasma calcium renee urement (mass/volume)Ordered By: Dr. Funes on 02-23-2022 Calcium [Mass/Vol] 8.6 mg/dL 8.5-10.1 [facility] Serum or plasma creatinine m easurement (mass/volume)Ordered By: Dr. Funes on 02-23-2022 Creatinine [Mass/Vol] 0.70 mg/dL 0.55-1.02 [facility] Comment on above: The validity of the calculated GFR & GFRAA in patients over 70 years has not been determined. Clinical correlation is essential. Serum or plasma urea nitroge n measurement (mass/volume)Ordered By: Dr. Funes on 02-23-2022 Urea nitrogen [Mass/Vol] 12 mg/dL 7-18 [facility] Squamous epithelial cells de tection in urine sediment by light microscopyOrdered By: Dr. Funes on 02-23-2022 Epithelial cells.squamous LM Ql (Urine sed) 0-5 SEEN /hpf 5-10 [facility] Thin prep Papanicolaou smear with manual screeningOrdered By: Dr. Funes on 02-23-2022 Thin prep Papanicolaou smear with manual screening 5 5-15 [facility] Urine blood detectionOrdered By: Dr. Funes on 02-23-2022 RBC Ql (U) Negative Negative [facility] RBC Ql (U) 0 SEEN /hpf 0-5 [facility] Urine clarityOrdered By: Dr. Funes on 02-23-2022 Clarity (U) Sl. Cloudy Clear [facility] Urine color determinationOrd ered By: Dr. Funes on 02-23-2022 Color (U) Yellow Yellow [facility] Urine glucose detectionOrder ed By: Dr. Funes on 02-23-2022 Glucose Ql (U) Normal mg/dl Normal [facility] Urine leukocyte esterase det ection by dipstickOrdered By: Dr. Funes on 02-23-2022 Leukocyte esterase Test strip Ql (U) Negative Negative [facility] Urine pHOrdered By: Dr. Syed pelayo on 02-23-2022 pH (U) 6.5 [pH] 5.0 - 8.0 [facility] Urine sediment bacteria coun t by microscopy (number/high power field)Ordered By: Dr. Funes on 02-23-2022 Bacteria LM.HPF (Urine sed) [#/Area] 0 /[HPF] None Seen [facility] Urine specific gravity measu rementOrdered By: Dr. Funes on 02-23-2022 Specific gravity (U) [Rel density] 1.015 1.002-1.030 [facility] Urobilinogen Auto test strip Ql (U)Ordered By: Dr. Funes on 02-23-2022 Urobilinogen Ql (U) Normal mg/dl Normal [facility] Surgical Tissue Examon 06-06 Surgical Tissue Exam Test performed at A [address] [id number]: MARGOT HU [id number] REQUESTING: ROSAMARIA SU M.D.FINAL DIAGNOSIS:LEFT THYROID LOBECTOMY - MULTINODULAR GOITER WITH ASSOCIATED CYSTICDEGENERATION, HEMORRHAGE, FIBROSIS AND CALCIFICATION.OPERATIVE PROCEDURE: Lobectomy thyroid total, Unilateral with or without isthmusectomyCLINICAL INFORMATION: Thyroid mass [E07.9]INTRAOPERATIVE CONSULTATION:FROZEN SECTION DIAGNOSIS: Left thyroid lobe, excision - Featurescompatible with colloid goiter in the one section evaluation. Onefrozen section and two touch preps. (ATP)GROSS DESCRIPTION:Substernal goiter and left lobeThe specimen is received fresh and designated with the patient's name,Margot Hu and the designation substernal goiter and left lobe.Received fresh for intraoperative consultation is an intact thyroidlobe with two smaller segments of similar tissue. The specimen has anaggregate weight of 31 gm. The larger intact specimen measures 8 x 4 x2 cm, and the two smaller pieces of tissue together measure 4 x 2 x 1cm. The cauterized surgical margin of the left lobe is inked yellowand the remainder of the specimens are inked black. Serial sectionsthrough the lobe disclose gelatinous and cystic foci throughout. Nodiscrete encapsulated nodules or fleshy regions are identified. Arepresentative section from the intact specimen was submitted forfrozen section evaluation. Sections through the two smaller pieces oftissue disclose one area of calcific change that cuts evenly with ascalpel blade. No additional findings are appreciated. Sections aresubmitted in ten cassettes as follows: 1-8 - payable representative sections ofleft thyroid lobe; 9 - smaller piece of tissue; 10 - smaller piece oftissue with calcification, totally submitted. ATP:vanessa AGUIRRE M.D.(Electronic signature on file)Signed out: 06/11/2017 16:26PRINTED: 06/11/2017 Page 1 of 1 Normal [facility] Comment on above: Performed By: #### S URG ####[place] [id number] Urine HCG, Qual.on 8 HCG.beta subunit ( test) Ql (U) Negative Normal Negative [facility] Comment on above: Performed By: #### H CGUR ####[facility] [place], [place] [address] Specific [place], Ur 1.013 Normal 1.005-1.030 [facility] Comment on above: Performed By: #### H CGUR ####[facility] [place], [place] [address] Calcium Bloodon 05-30-2017 Calcium 9.4 mg/dL Normal 8.5-10.1 [facility] Comment on above: Performed By: #### C A ####[facility] [place], [place] [address] BRIEF OP NOTon 02-06-2017 BRIEF OP NOT HNO ID: [id number]: Sarah Johnservice: RadiologyAuthor Type: PhysicianType: Brief Op NoteFiled: 02/06/2017 1:35 PMNote Text:BRIEF OPERATIVE NOTEPatient Name: Margot HuMRN: [id number] ID: [id number] Date: 02/06/2017Surgeon(s) and Profile Grinder Technician(s):Surgeon(s) and Role: * Sarah Oviedo - PrimaryProcedures and Anesthesia:Procedure(s) and Anesthesia Type: * BIOPSY THYROID - LocalFindings: naEstimated Blood Loss: NoneIntravenous Fluids: NoneCondition: stableSpecimens: 3, 25G FNAPostop Diagnosis: * No post-op diagnosis entered *Signature: Sarah Oviedo MDDate: February 06, 2017Time: 1:35 PM [facility] CYTOLOGYon 02-06-2017 [facility] [facility]: [id number] Physician: Sarah Oviedo M.D.SPECIMEN SUBMITTEDA: THYROID, LEFT LOBE, FINE NEEDLE ASPIRATE (THINPREP, SMEARS ANDCELLBLOCK) FINAL DIAGNOSISA. THYROID, LEFT LOBE, FINE NEEDLE ASPIRATE (THINPREP, SMEARS ANDCELLBLOCK)Benign.Jenaro gn follicular cells, cyst contents, and colloid.Medina Cr MD (Electronic Signature) CLINI TELMA DATA Dominant NoduleGROSS [id number] cc Slightly Cloudy, jason CytoLyt with particles and 6 Smears STAINSA: THYROID, LEFT LOBE, FINE NEEDLE ASPIRATE (THINPREP, SMEARS ANDCELLBLOCK) SMEARS RECEIVED x 6, THIN PREP Non-Orange Picker, CELL BLOCK, H&E, InitialPatient ID #: [id number] of Report: 02/12/2017Date of Procedure: 02/06/2017Date of Receipt: 02/06/2017Submitted by: Sarah Oviedo M.D.Location: MERADDiagnostic interpretation performed at [facility], [address] [place] [id number]. [facility] Comment on above: Performed By: #### F NTHYL ####[facility] [id number] [place], [place] [phone] US GUIDED NEEDLEon 7 US GUIDED NEEDLE * * *Final Report* * *DATE OF EXAM: Feb 06 2017 1:49PM LINDA 1030 - US GUIDED NEEDLE / REASON: Thyroid nodule * * * * Physician Interpretation * * * * INDICATION: Thyroid nodulePROCEDURE: Informed written consent was obtained. The nature of the procedure was explained to the patient with discussion of the risks, benefits, and alternatives. The patient's questions were answered and the patient understands and elects to proceed with the procedure.Using aseptic technique, 1% lidocaine for local anesthesia and sonographic guidance, 3 separate 25-gauge fine-needle aspiration biopsies were obtained from a dominant, complex left lower pole thyroid mass. The patient tolerated the procedure well and left the department in stable condition. No complications were encountered.IMPRESSION: Left thyroid nodule FNA.Auto Bench Mechanic: JESUS Transcribe Date/Time: Feb 06 2017 3:03PDictated by : SARAH OVIEDO MDThis examination was interpreted and the report reviewed and electronically signed by: SARAH OVIEDO MD on Feb 06 2017 3:04PM [id number] [facility] HOSPon 02-05-2017 HOSP Patient:Rashard Hu on N: Height:5' 10.079(1.78 m)Weight:152 lb 9.6 oz (69.219 kg)Outpatient Medications as of 02/06/17:fludrocortisone (FLORINEF) 0.1 mg tabletMULTIVIT-MINERALS/ FERROUS FUM (MULTI VITAMIN ORAL)Lysine 500 mg tabCOMPOUNDED PRESCRIPTIONCOMPOUNDED PRESCRIPTIONGUAIFENESIN/ PSEUDOEPHEDRNE HCL (MUCINEX D ORAL)Cetirizine (ZYRTEC) 10 mg capERGOCALCIFEROL, VITAMIN D2, (VITAMIN D ORAL)VITAMIN B COMPLEX (B COMPLEX ORAL)diclofenac, EC, 75 mg EC tabletAdmission/Clinic Administered Medications as of 02/06/17:Patient has no admission medications.Problem List:Weakness [R53.1]Tachycardia [R00.0]Abdominal pain, other specified site [R10.9]Diarrhea [R19.7]Muscle tear [T14.8XXA]Orthostatic hypotension [I95.1]POTS (postural orthostatic tachycardia syndrome) [R00.0, I95.1]Mass of elbow region [R22.30]Raynaud's phenomenon [I73.00][place]'s thyroiditis [E06.3]Thyroid mass [E07.9]Allergies:Aleve [Naproxen]Bactrim [Sulfamethoxazole]Lactos e Intolerance [Lactase]MidodrinePenici llinsDate Verified: 01/24/17Lab ValuesNo results within the last 30 days for the following basenames: K,HCTProgress Notes ([facility]):Emerita Camarillo RN, RN 02/01/2017 2:54 PM SignedLeft voicemail to schedule Thyroid biopsy. Awaiting call back.Progress Notes ([facility]):Emerita Camarillo RN, RN 01/29/2017 4:07 PM SignedPatient called to schedule Thyroid biopsy, awaiting order from Dr Prado. Perpatient, would like for the procedure to be completed here, as there was a longwait for it to be completed in office. Called Dr Prado's nurse, will see aboutgetting an order by tomorrow. Awaiting order before scheduling patient. [facility] COVID-19 virus antigen assay SARS-CoV-2 (COVID-19) Ag IA.rapid Ql (Resp) [facility] Work Phone: No Panel Information Influenza Types A,B Direct FA (AZAM) Influenzae A [facility] Work Phone: [facility] Vital Signs Date Time Vital Sign Value Performing Clinician Facility 08-12-2024 08:11-0400 Body mass index (BMI) [Ratio] 23 kg/m2 Tanika Alves DO Work Phone: [facility] 08-12-2024 08:11-0400 Body temperature 97.9 [degF] Tanika Alves DO Work Phone: [facility] 08-12-2024 08:11-0400 Body weight 74.8 kg Tanika Alves DO Work Phone: [facility] 08-12-2024 08:11-0400 Diastolic blood pressure 70 mm[Hg] Tanika Alves DO Work Phone: [facility] 08-12-2024 08:11-0400 Heart rate 71 /min Tanika Alves DO Work Phone: [facility] 08-12-2024 08:11-0400 Systolic blood pressure 126 mm[Hg] Tanika Alves DO Work Phone: [facility] 07-01-2024 09:10-0400 Body mass index (BMI) [Ratio] 22.69 kg/m2 Tanika Alves DO Work Phone: [facility] 07-01-2024 09:10-0400 Body temperature 96.4 [degF] Tanika Alves DO Work Phone: [facility] 07-01-2024 09:10-0400 Body weight 73.8 kg Tanika Alves DO Work Phone: [facility] 07-01-2024 09:10-0400 Diastolic blood pressure 71 mm[Hg] Tanika Alves DO Work Phone: [facility] 07-01-2024 09:10-0400 Heart rate 66 /min Tanika Alves DO Work Phone: [facility] 07-01-2024 09:10-0400 Systolic blood pressure 115 mm[Hg] Tanika Alves DO Work Phone: [facility] 06-05-2024 17:09-0400 Body height 180.[address] Ama Hamilton MD Work Phone: [facility] 06-05-2024 17:09-0400 Body mass index (BMI) [Ratio] 22.1 kg/m2 Dr. Ama Hamilton MD Work Phone: [facility] 06-05-2024 17:09-0400 Body temperature 97.9 [degF] Dr. Ama Hamilton MD Work Phone: [facility] 06-05-2024 17:09-0400 Body weight 72.[address] Ama Hamilton MD Work Phone: [facility] 06-05-2024 17:09-0400 Diastolic blood pressure 70 mm[Hg] Dr. Ama Hamilton MD Work Phone: [facility] 06-05-2024 17:09-0400 Heart rate 85 /min Dr. Ama Hamilton MD Work Phone: [facility] 06-05-2024 17:09-0400 Respiratory rate 16 /min Dr. Ama Hamilton MD Work Phone: [facility] 06-05-2024 17:09-0400 SaO2% (BldA) [Mass fraction] 99 % Dr. Ama Hamilton MD Work Phone: [facility] 06-05-2024 17:09-0400 Systolic blood pressure 110 mm[Hg] Dr. Ama Hamilton MD Work Phone: [facility] 05-27-2024 09:57-0500 Body mass index (BMI) [Ratio] 22.38 kg/m2 Rosamaria Clutter PA-C Work Phone: [facility] 05-27-2024 09:57-0500 Body temperature 97.81 [degF] Rosamaria Clutter PA-C Work Phone: [facility] 05-27-2024 09:57-0500 Body weight 72.8 kg Rosamaria Clutter PA-C Work Phone: [facility] 05-27-2024 09:57-0500 Diastolic blood pressure 82 mm[Hg] Rosamaria Clutter PA-C Work Phone: [facility] 05-27-2024 09:57-0500 Heart rate 73 /min Rosamaria Clutter PA-C Work Phone: [facility] 05-27-2024 09:57-0500 Respiratory rate 18 /min Rosamaria Clutter PA-C Work Phone: [facility] 05-27-2024 09:57-0500 SaO2% (BldA) [Mass fraction] 98 % Rosamaria Clutter PA-C Work Phone: [facility] 05-27-2024 09:57-0500 Systolic blood pressure 124 mm[Hg] Rosamaria Clutter PA-C Work Phone: [facility] 04-09-2024 15:57-0500 Body mass index (BMI) [Ratio] 22.81 kg/m2 Tanika Alves DO Work Phone: [facility] 04-09-2024 15:57-0500 Body temperature 97.3 [degF] Tanika Alves DO Work Phone: [facility] 04-09-2024 15:57-0500 Body weight 74.2 kg Tanika Alves DO Work Phone: [facility] 04-09-2024 15:57-0500 Diastolic blood pressure 72 mm[Hg] Tanika Alves DO Work Phone: [facility] 04-09-2024 15:57-0500 Heart rate 64 /min Tanika Alves DO Work Phone: [facility] 04-09-2024 15:57-0500 Systolic blood pressure 112 mm[Hg] Tanika Alves DO Work Phone: [facility] 03-05-2024 07:28-0500 Body mass index (BMI) [Ratio] 22.4 kg/m2 Dr. Ama Hamilton MD Work Phone: [facility] 03-05-2024 07:28-0500 Body temperature 97.5 [degF] Dr. Ama Hamilton MD Work Phone: [facility] 03-05-2024 07:28-0500 Body weight 73.[address] Ama Hamilton MD Work Phone: [facility] 03-05-2024 07:28-0500 Diastolic blood pressure 64 mm[Hg] Dr. Ama Hamilton MD Work Phone: [facility] 03-05-2024 07:28-0500 Heart rate 77 /min Dr. Ama Hamilton MD Work Phone: [facility] 03-05-2024 07:28-0500 Respiratory rate 14 /min Dr. Ama Hamilton MD Work Phone: [facility] 03-05-2024 07:28-0500 SaO2% (BldA) [Mass fraction] 97 % Dr. Ama Hamilton MD Work Phone: [facility] 03-05-2024 07:28-0500 Systolic blood pressure 110 mm[Hg] Dr. Ama Hamilton MD Work Phone: [facility] 02-15-2024 08:03-0500 Body mass index (BMI) [Ratio] 22.35 kg/m2 Tanika Alves DO Work Phone: [facility] 02-15-2024 08:03-0500 Body temperature 96.8 [degF] Tanika Bourgeois DO Work Phone: [facility] 02-15-2024 08:03-0500 Body weight 72.7 kg Tanika Bourgeois DO Work Phone: [facility] 02-15-2024 08:03-0500 Diastolic blood pressure 71 mm[Hg] Tanika Bourgeois DO Work Phone: [facility] 02-15-2024 08:03-0500 Heart rate 77 /min Tanika Bourgeois DO Work Phone: [facility] 02-15-2024 08:03-0500 Respiratory rate 16 /min Tanika Bourgeois DO Work Phone: [facility] 02-15-2024 08:03-0500 Systolic blood pressure 114 mm[Hg] Tanika Bourgeois DO Work Phone: [facility] 01-03-2024 09:00-0400 Body mass index (BMI) [Ratio] 22.35 kg/m2 Tanika Bourgeois DO Work Phone: [facility] 01-03-2024 09:00-0400 Body temperature 96.1 [degF] Tanika Bourgeois DO Work Phone: [facility] 01-03-2024 09:00-0400 Body weight 72.7 kg Tanika Bourgeois DO Work Phone: [facility] 01-03-2024 09:00-0400 Diastolic blood pressure 67 mm[Hg] Tanika Bourgeois DO Work Phone: [facility] 01-03-2024 09:00-0400 Heart rate 62 /min Tanika Bourgeois DO Work Phone: [facility] 01-03-2024 09:00-0400 Systolic blood pressure 111 mm[Hg] Tanika Bourgeois DO Work Phone: [facility] 12-07-2023 09:27-0400 Body height 180.3 cm Easton Parker MD Work Phone: [facility] 12-07-2023 09:27-0400 Body mass index (BMI) [Ratio] 21.9 kg/m2 Easton Parker MD Work Phone: [facility] 12-07-2023 09:27-0400 Body weight 71.22 kg Easton Parker MD Work Phone: [facility] 12-07-2023 09:27-0400 Respiratory rate 16 /min Easton Parker MD Work Phone: [facility] 12-03-2023 08:57-0400 Body mass index (BMI) [Ratio] 22.75 kg/m2 Tanika Krishnanois DO Work Phone: [facility] 12-03-2023 08:57-0400 Body temperature 96.8 [degF] Tanika Carrurgeois DO Work Phone: [facility] 12-03-2023 08:57-0400 Body weight 74 kg Tanika Carrurgeois DO Work Phone: [facility] 12-03-2023 08:57-0400 Diastolic blood pressure 66 mm[Hg] Tanika Bourgeois DO Work Phone: [facility] 12-03-2023 08:57-0400 Heart rate 61 /min Tanika Bourgeois DO Work Phone: [facility] 12-03-2023 08:57-0400 Systolic blood pressure 106 mm[Hg] Tanika Bourgeois DO Work Phone: [facility] 11-15-2023 09:03-0400 Body mass index (BMI) [Ratio] 22.14 kg/m2 Tanika Bourgeois DO Work Phone: [facility] 11-15-2023 09:03-0400 Body temperature 97.7 [degF] Tanika Bourgeois DO Work Phone: [facility] 11-15-2023 09:03-0400 Body weight 72 kg Tanika Alves DO Work Phone: [facility] 11-15-2023 09:03-0400 Diastolic blood pressure 67 mm[Hg] Tanika Alves DO Work Phone: [facility] 11-15-2023 09:03-0400 Heart rate 73 /min Tanika Alves DO Work Phone: [facility] 11-15-2023 09:03-0400 Systolic blood pressure 105 mm[Hg] Tanika Alves DO Work Phone: [facility] 11-02-2023 08:44-0400 Body height 180.3 cm Easton Parker MD Work Phone: [facility] 11-02-2023 08:44-0400 Body mass index (BMI) [Ratio] 22.04 kg/m2 Easton Parker MD Work Phone: [facility] 11-02-2023 08:44-0400 Body weight 71.67 kg Easton Parker MD Work Phone: [facility] 10-26-2023 09:56-0400 Body height 180.3 cm Easton Parker MD Work Phone: [facility] 10-26-2023 09:56-0400 Body mass index (BMI) [Ratio] 21.62 kg/m2 Easton Parker MD Work Phone: [facility] 10-26-2023 09:56-0400 Body temperature 98.2 [degF] Easton Parker MD Work Phone: [facility] 10-26-2023 09:56-0400 Body weight 70.31 kg Easton Parker MD Work Phone: [facility] 10-25-2023 10:46-0400 Body mass index (BMI) [Ratio] 22.14 kg/m2 Antonio Vivar APRN.GARMENT MANUFACTURER Work Phone: [facility] 10-25-2023 10:46-0400 Body temperature 98.4 [degF] Antonio Vivar APRN.GARMENT MANUFACTURER Work Phone: [facility] 10-25-2023 10:46-0400 Body weight 72 kg Antonio Vivar APRN.CNP Work Phone: [facility] 10-25-2023 10:46-0400 Diastolic blood pressure 86 mm[Hg] Antonio Vivar TRANSLATOR/INTERPRETER.GARMENT MANUFACTURER Work Phone: [facility] 10-25-2023 10:46-0400 Heart rate 69 /min Antonio Vivar TRANSLATOR/INTERPRETER.GARMENT MANUFACTURER Work Phone: [facility] 10-25-2023 10:46-0400 Respiratory rate 18 /min Antonio Vivar TRANSLATOR/INTERPRETER.GARMENT MANUFACTURER Work Phone: [facility] 10-25-2023 10:46-0400 SaO2% (BldA) [Mass fraction] 100 % Antonio Vivar TRANSLATOR/INTERPRETER.GARMENT MANUFACTURER Work Phone: [facility] 10-25-2023 10:46-0400 Systolic blood pressure 127 mm[Hg] Antonio Vivar TRANSLATOR/INTERPRETER.GARMENT MANUFACTURER Work Phone: [facility] 10-02-2023 08:29-0400 Body mass index (BMI) [Ratio] 22.17 kg/m2 Tanika Alves DO Work Phone: [facility] 10-02-2023 08:29-0400 Body temperature 97.59 [degF] Tanika Alves DO Work Phone: [facility] 10-02-2023 08:29-0400 Body weight 72.1 kg Tanika Alves DO Work Phone: [facility] 10-02-2023 08:29-0400 Diastolic blood pressure 63 mm[Hg] Tanika Alves DO Work Phone: [facility] 10-02-2023 08:29-0400 Heart rate 70 /min Tanika Alves DO Work Phone: [facility] 10-02-2023 08:29-0400 Systolic blood pressure 105 mm[Hg] Tanika Alves DO Work Phone: [facility] 07-30-2023 11:59-0400 Body height 180.[address] Ama Hamilton Work Phone: [facility] 07-30-2023 11:59-0400 Body mass index (BMI) [Ratio] 22.1 kg/m2 Dr. Ama Hamilton Work Phone: [facility] 07-30-2023 11:59-0400 Body weight 72.[address] Ama Hamilton Work Phone: [facility] 07-30-2023 11:59-0400 Diastolic blood pressure 72 mm[Hg] Dr. Ama Hamilton Work Phone: [facility] 07-30-2023 11:59-0400 Systolic blood pressure 110 mm[Hg] Dr. Ama Hamilton Work Phone: [facility] 07-25-2023 08:26-0400 Body mass index (BMI) [Ratio] 22.59 kg/m2 Tanika Alves DO Work Phone: [facility] 07-25-2023 08:26-0400 Body temperature 96.6 [degF] Tanika Alves DO Work Phone: [facility] 07-25-2023 08:26-0400 Body weight 73.48 kg Tanika Alves DO Work Phone: [facility] 07-25-2023 08:26-0400 Diastolic blood pressure 66 mm[Hg] Tanika Alves DO Work Phone: [facility] 07-25-2023 08:26-0400 Heart rate 61 /min Tanika Alves DO Work Phone: [facility] 07-25-2023 08:26-0400 Systolic blood pressure 123 mm[Hg] Tanika Alves DO Work Phone: [facility] 06-06-2023 17:04-0400 Body height 180.[address] Ama Hamilton Work Phone: [facility] 06-06-2023 17:04-0400 Body mass index (BMI) [Ratio] 22.4 kg/m2 Dr. Ama Hamilton Work Phone: [facility] 06-06-2023 17:04-0400 Body temperature 98.9 [degF] Dr. Ama Hamilton Work Phone: [facility] 06-06-2023 17:04-0400 Body weight 73.[address] Ama Hamilton Work Phone: [facility] 06-06-2023 17:04-0400 Diastolic blood pressure 70 mm[Hg] Dr. Ama Hamilton Work Phone: [facility] 06-06-2023 17:04-0400 Heart rate 54 /min Dr. Ama Hamilton Work Phone: [facility] 06-06-2023 17:04-0400 Respiratory rate 16 /min Dr. Ama Hamilton Work Phone: [facility] 06-06-2023 17:04-0400 SaO2% (BldA) [Mass fraction] 99 % Dr. Ama Hamilton Work Phone: [facility] 06-06-2023 17:04-0400 Systolic blood pressure 110 mm[Hg] Dr. Ama Hamilton Work Phone: [facility] 05-16-2023 09:30-0500 Body temperature 97.2 [degF] Tanika Alves DO Work Phone: [facility] 05-16-2023 09:30-0500 Body weight 72.12 kg Tanika Alves DO Work Phone: [facility] 05-16-2023 09:30-0500 Diastolic blood pressure 68 mm[Hg] Tanika Alves DO Work Phone: [facility] 05-16-2023 09:30-0500 Heart rate 65 /min Tanika Alves DO Work Phone: [facility] 05-16-2023 09:30-0500 Respiratory rate 18 /min Tanika Carrurgeois DO Work Phone: [facility] 05-16-2023 09:30-0500 Systolic blood pressure 108 mm[Hg] Tanika Bourgeois DO Work Phone: [facility] 03-06-2023 11:34-0500 Body temperature 97 [degF] Tanika Bourgeois DO Work Phone: [facility] 03-06-2023 11:34-0500 Body weight 72.12 kg Tanika Carrurgeois DO Work Phone: [facility] 03-06-2023 11:34-0500 Diastolic blood pressure 80 mm[Hg] Tanika Bourgeois DO Work Phone: [facility] 03-06-2023 11:34-0500 Heart rate 73 /min Tanika Brunourgeois DO Work Phone: [facility] 03-06-2023 11:34-0500 Respiratory rate 17 /min Tanika Carrurgeois DO Work Phone: [facility] 03-06-2023 11:34-0500 Systolic blood pressure 121 mm[Hg] Tanika Brunourgeois DO Work Phone: [facility] 01-24-2023 10:55-0400 Body weight 71.22 kg Tanika Carrurgeois DO Work Phone: [facility] 01-24-2023 10:55-0400 Diastolic blood pressure 70 mm[Hg] Tanika Carrurgeois DO Work Phone: [facility] 01-24-2023 10:55-0400 Heart rate 67 /min Tanika Carrurgeois DO Work Phone: [facility] 01-24-2023 10:55-0400 Respiratory rate 12 /min Tanika Carrurgeois DO Work Phone: [facility] 01-24-2023 10:55-0400 Systolic blood pressure 105 mm[Hg] Tanika Carrurgeois DO Work Phone: [facility] 01-01-2023 14:03-0400 Body temperature 97.5 [degF] Tanika Bourgeois DO Work Phone: [facility] 01-01-2023 14:03-0400 Body weight 71.22 kg Tanika Bourgeois DO Work Phone: [facility] 01-01-2023 14:03-0400 Diastolic blood pressure 69 mm[Hg] Tanika Bourgeois DO Work Phone: [facility] 01-01-2023 14:03-0400 Heart rate 62 /min Tanika Bourgeois DO Work Phone: [facility] 01-01-2023 14:03-0400 Systolic blood pressure 127 mm[Hg] Tanika Bourgeois DO Work Phone: [facility] 11-03-2022 08:43-0400 Body temperature 96.91 [degF] Tanika Bourgeois DO Work Phone: [facility] 11-03-2022 08:43-0400 Body weight 71.67 kg Tanika Bourgeois DO Work Phone: [facility] 11-03-2022 08:43-0400 Diastolic blood pressure 65 mm[Hg] Tanika Bourgeois DO Work Phone: [facility] 11-03-2022 08:43-0400 Heart rate 75 /min Tanika Bourgeois DO Work Phone: [facility] 11-03-2022 08:43-0400 Respiratory rate 17 /min Tanika Carrurgeois DO Work Phone: [facility] 11-03-2022 08:43-0400 Systolic blood pressure 107 mm[Hg] Tanika Bourgeois DO Work Phone: [facility] 09-13-2022 16:59-0400 Body height 180.[address] Ama Hamilton Work Phone: [facility] 09-13-2022 16:59-0400 Body mass index (BMI) [Ratio] 21.9 kg/m2 Dr. Ama Hamilton Work Phone: [facility] 09-13-2022 16:59-0400 Body temperature 98.2 [degF] Dr. Ama Hamilton Work Phone: [facility] 09-13-2022 16:59-0400 Body weight 71.[address] Ama Hamilton Work Phone: [facility] 09-13-2022 16:59-0400 Diastolic blood pressure 70 mm[Hg] Dr. Ama Hamilton Work Phone: [facility] 09-13-2022 16:59-0400 Heart rate 65 /min Dr. Ama Hamilton Work Phone: [facility] 09-13-2022 16:59-0400 Respiratory rate 14 /min Dr. Ama Hamilton Work Phone: [facility] 09-13-2022 16:59-0400 SaO2% (BldA) [Mass fraction] 99 % Dr. Ama Hamilton Work Phone: [facility] 09-13-2022 16:59-0400 Systolic blood pressure 106 mm[Hg] Dr. Ama Hamilton Work Phone: [facility] 07-27-2022 15:18-0400 Body height 180.[address] Ama Hamilton Work Phone: [facility] 07-27-2022 15:18-0400 Body mass index (BMI) [Ratio] 22.1 kg/m2 Dr. Ama Hamilton Work Phone: [facility] 07-27-2022 15:18-0400 Body weight 71.[address] Ama Hamilton Work Phone: [facility] 07-27-2022 15:18-0400 Diastolic blood pressure 72 mm[Hg] Dr. Ama Hamilton Work Phone: [facility] 07-27-2022 15:18-0400 Systolic blood pressure 115 mm[Hg] Dr. Ama Hamilton Work Phone: [facility] 05-24-2022 16:59-0500 Body height 180.[address] Ama Hamilton Work Phone: [facility] 05-24-2022 16:59-0500 Body mass index (BMI) [Ratio] 22.1 kg/m2 Dr. Ama Hamilton Work Phone: [facility] 05-24-2022 16:59-0500 Body temperature 98.6 [degF] Dr. Ama Hamilton Work Phone: [facility] 05-24-2022 16:59-0500 Body weight 72.[address] Ama Hamilton Work Phone: [facility] 05-24-2022 16:59-0500 Diastolic blood pressure 72 mm[Hg] Dr. Ama Hamilton Work Phone: [facility] 05-24-2022 16:59-0500 Heart rate 72 /min Dr. Ama Hamilton Work Phone: [facility] 05-24-2022 16:59-0500 Respiratory rate 14 /min Dr. Ama Hamilton Work Phone: [facility] 05-24-2022 16:59-0500 SaO2% (BldA) [Mass fraction] 98 % Dr. Ama Hamilton Work Phone: [facility] 05-24-2022 16:59-0500 Systolic blood pressure 104 mm[Hg] Dr. Ama Hamilton Work Phone: [facility] 05-19-2022 08:32-0500 Body height 180.3 cm Maxim Tat DO Work Phone: [facility] 05-19-2022 08:32-0500 Body temperature 97.39 [degF] Maxim Tat DO Work Phone: [facility] 05-19-2022 08:32-0500 Body weight 72.58 kg Maxim Tat DO Work Phone: [facility] 05-19-2022 08:32-0500 Diastolic blood pressure 65 mm[Hg] Maxim Tat DO Work Phone: [facility] 05-19-2022 08:32-0500 Heart rate 64 /min Maxim Tat DO Work Phone: [facility] 05-19-2022 08:32-0500 Systolic blood pressure 102 mm[Hg] Maxim Tat DO Work Phone: [facility] 04-21-2022 15:57-0500 Body height 180.3 cm Tanika Krishnanois DO Work Phone: [facility] 04-21-2022 15:57-0500 Body temperature 97.59 [degF] Tanika Carrurgeois DO Work Phone: [facility] 04-21-2022 15:57-0500 Body weight 73.48 kg Tanika Carrurgeois DO Work Phone: [facility] 04-21-2022 15:57-0500 Diastolic blood pressure 56 mm[Hg] Tanika Bourgeois DO Work Phone: [facility] 04-21-2022 15:57-0500 Heart rate 70 /min Tanika Carrurgeois DO Work Phone: [facility] 04-21-2022 15:57-0500 Systolic blood pressure 119 mm[Hg] Tanika Carrurgeois DO Work Phone: [facility] 02-27-2022 09:55-0500 Body height 180.[address] Ama Hamilton Work Phone: [facility] 02-27-2022 09:55-0500 Body mass index (BMI) [Ratio] 22.3 kg/m2 Dr. Ama Hamilton Work Phone: [facility] 02-27-2022 09:55-0500 Body temperature 97.1 [degF] Dr. Ama Hamilton Work Phone: [facility] 02-27-2022 09:55-0500 Body weight 72.[address] Ama Hamilton Work Phone: [facility] 02-27-2022 09:55-0500 Diastolic blood pressure 74 mm[Hg] Dr. Ama Hamilton Work Phone: [facility] 02-27-2022 09:55-0500 Heart rate 94 /min Dr. Ama Hamilton Work Phone: [facility] 02-27-2022 09:55-0500 Respiratory rate 16 /min Dr. Ama Hamilton Work Phone: [facility] 02-27-2022 09:55-0500 SaO2% (BldA) [Mass fraction] 98 % Dr. Ama Hamilton Work Phone: [facility] 02-27-2022 09:55-0500 Systolic blood pressure 118 mm[Hg] Dr. Ama Hamilton Work Phone: [facility] 02-23-2022 15:03-0500 Diastolic blood pressure 66 mm[Hg] Dr. Ama Hamilton Work Phone: [facility] 02-23-2022 15:03-0500 Heart rate 79 /min Dr. Ama Hamilton Work Phone: [facility] 02-23-2022 15:03-0500 Respiratory rate 16 /min Dr. Ama Hamilton Work Phone: [facility] 02-23-2022 15:03-0500 SaO2% (BldA) [Mass fraction] 99 % Dr. Ama Hamilton Work Phone: [facility] 02-23-2022 15:03-0500 Systolic blood pressure 117 mm[Hg] Dr. Ama Hamilton Work Phone: [facility] 02-23-2022 09:34-0500 Body height 180.[address] Ama Hamilton Work Phone: [facility] Work Phone: 02-23-2022 09:34-0500 Body mass index (BMI) [Ratio] 22.3 kg/m2 Dr. Ama Hamilton Work Phone: [facility] 02-23-2022 09:34-0500 Body temperature 98.1 [degF] Dr. Ama Hamilton Work Phone: [facility] 02-23-2022 09:34-0500 Body weight 72.[address] Ama Hamilton Work Phone: [facility] 01-06-2022 09:26-0400 Body temperature 97.59 [degF] Maxim Tat DO Work Phone: [facility] 01-06-2022 09:26-0400 Body weight 73.94 kg Maxim Tat DO Work Phone: [facility] 01-06-2022 09:26-0400 Diastolic blood pressure 70 mm[Hg] Maxim Tat DO Work Phone: [facility] 01-06-2022 09:26-0400 Heart rate 70 /min Maxim Tat DO Work Phone: [facility] 01-06-2022 09:26-0400 Respiratory rate 17 /min Maxim Tat DO Work Phone: [facility] 01-06-2022 09:26-0400 Systolic blood pressure 126 mm[Hg] Maxim Tat DO Work Phone: [facility] 12-02-2021 16:49-0400 Body height 179.1 cm Maxim Tat DO Work Phone: [facility] 12-02-2021 16:49-0400 Body temperature 97.3 [degF] Maxim Tat DO Work Phone: [facility] 12-02-2021 16:49-0400 Body weight 73.37 kg Maxim Tat DO Work Phone: [facility] 12-02-2021 16:49-0400 Diastolic blood pressure 65 mm[Hg] Maxim Tat DO Work Phone: [facility] 12-02-2021 16:49-0400 Heart rate 60 /min Maxim Tat DO Work Phone: [facility] 12-02-2021 16:49-0400 Respiratory rate 14 /min Maxim Tat DO Work Phone: [facility] 12-02-2021 16:49-0400 SaO2% (BldA) [Mass fraction] 100 % Maxim Tat DO Work Phone: [facility] 12-02-2021 16:49-0400 Systolic blood pressure 131 mm[Hg] Maxim Tat DO Work Phone: [facility] 10-07-2021 08:58-0400 Body temperature 97.81 [degF] Fili Danyelle DO Work Phone: [facility] 10-07-2021 08:58-0400 Body weight 72.58 kg Fili Danyelle DO Work Phone: [facility] 10-07-2021 08:58-0400 Diastolic blood pressure 69 mm[Hg] Fili Danyelle DO Work Phone: [facility] 10-07-2021 08:58-0400 Heart rate 76 /min Fili Danyelle DO Work Phone: [facility] 10-07-2021 08:58-0400 Respiratory rate 17 /min Fili Danyelle DO Work Phone: [facility] 10-07-2021 08:58-0400 Systolic blood pressure 112 mm[Hg] Fili Danyelle DO Work Phone: [facility] 09-16-2021 09:09-0400 Body temperature 97.9 [degF] Fili Danyelle DO Work Phone: [facility] 09-16-2021 09:09-0400 Body weight 72.58 kg Fili Danyelle DO Work Phone: [facility] 09-16-2021 09:09-0400 Diastolic blood pressure 86 mm[Hg] Fili Danyelle DO Work Phone: [facility] 09-16-2021 09:09-0400 Heart rate 78 /min Fili Danyelle DO Work Phone: [facility] 09-16-2021 09:09-0400 Respiratory rate 17 /min Fili Danyelle DO Work Phone: [facility] 09-16-2021 09:09-0400 Systolic blood pressure 126 mm[Hg] Fili Danyelle DO Work Phone: [facility] 08-31-2021 08:03-0400 Body height 180.[address] Ama Hamilton Work Phone: [facility] Work Phone: 08-31-2021 08:03-0400 Body mass index (BMI) [Ratio] 22.5 kg/m2 Dr. Ama Hamilton Work Phone: [facility] Work Phone: 08-31-2021 08:03-0400 Body temperature 98.1 [degF] Dr. Ama Hamilton Work Phone: [facility] Work Phone: 08-31-2021 08:03-0400 Body weight 73.[address] Ama Hamilton Work Phone: [facility] Work Phone: 08-31-2021 08:03-0400 Diastolic blood pressure 74 mm[Hg] Dr. Ama Hamilton Work Phone: [facility] Work Phone: 08-31-2021 08:03-0400 Heart rate 56 /min Dr. Ama Hamilton Work Phone: [facility] Work Phone: 08-31-2021 08:03-0400 Respiratory rate 16 /min Dr. Ama Hamilton Work Phone: [facility] Work Phone: 08-31-2021 08:03-0400 SaO2% (BldA) [Mass fraction] 99 % Dr. Ama Hamilton Work Phone: [facility] Work Phone: 08-31-2021 08:03-0400 Systolic blood pressure 118 mm[Hg] Dr. Ama Hamilton Work Phone: [facility] Work Phone: Encounters Encounter Date Encounter Type Care Provider Facility Start: 09-10-2024 ambulatory [facility] Facility:[facility] Start: 09-09-2024 End: 09-09-2024 Patient encounter procedure Sarah Wynn MD Work Phone: [facility] Comment on above: Acetabular labrum te ar, right, subsequent encounter (Primary Dx) Start: 09-03-2024 ambulatory SARAH WYNN Facility: [facility] Start: 09-03-2024 End: 09-03-2024 Subsequent hospital visit by physician [facility] Comment on above: Ischial bursitis of right side [M70.71] Start: 09-01-2024 Encounter for other preprocedural examination Fili Alex [facility] Start: 08-13-2024 ambulatory [facility] Maty Rene lity:[facility] Start: 08-12-2024 End: 08-12-2024 Patient encounter procedure Tanika Alves DO Work Phone: [facility] Comment on above: Chronic right SI pillo nt pain (Primary Dx); Rib pain on left side; Somatic dysfunction of head region; Somatic dysfunction of lumbar region; Somatic dysfunction of sacral region; Somatic dysfunction of pelvis region; Somatic dysfunction of rib; Somatic dysfunction of lower extremity Start: 08-12-2024 End: 08-12-2024 ambulatory TANIKA KRISHNANRUDDY Facility:[facility] Start: 07-31-2024 End: 07-31-2024 Telephone encounter [facility] Comment on above: Appointment Start: 07-30-2024 End: 07-30-2024 Patient encounter procedure Sarah Wynn MD Work Phone: [employer] Comment on above: Hamstring tendinitis of right thigh (Primary Dx); Pain of right hip; Ischial bursitis of right side Start: 07-30-2024 End: 07-30-2024 ambulatory AMA HAMILTON Facility:[facility] Start: 07-01-2024 End: 07-01-2024 Patient encounter procedure Tanika Alves DO Work Phone: [facility] Comment on above: Rib pain on left izaiah e (Primary Dx); Chronic right shoulder pain; Chronic right SI joint pain; Somatic dysfunction of head region; Somatic dysfunction of cervical region; Somatic dysfunction of thoracic region; Somatic dysfunction of lumbar region; Somatic dysfunction of sacral region; Somatic dysfunction of pelvis region; Somatic dysfunction of rib; Somatic dysfunction of upper extremity Start: 07-01-2024 End: 07-01-2024 ambulatory TANIKA ALVES Facility:[facility] Start: 06-25-2024 End: 06-25-[address] Ama Hamilton MD Work Phone: [facility] Work Phone: Start: 06-25-2024 End: 06-25-[address] Ama Hamilton MD -Outpatient Breast Imaging Work Phone: Start: 06-25-2024 End: 06-25-2024 ambulatory Ama Hamilton Facility:[facility] Start: 06-05-2024 Encounter for genera l adult medical examination without abnormal findings Ama Hamilton [facility] Start: 06-05-2024 End: 06-05-[address] Ama Hamilton MD -[facility] Work Phone: Start: 06-05-2024 End: 06-05-[address] Ama Hamilton MD [facility] Start: 06-05-2024 End: 06-05-[facility] Start: 06-03-2024 End: 06-03-2024 ambulatory Sarah Wynn MD Work Phone: [facility] Comment on above: hip MRI Start: 06-03-2024 End: 06-03-2024 E-mail encounter from caregiver Sarah Wynn MD Work Phone: [facility] Start: 05-28-2024 End: 05-28-2024 ambulatory SARAH WYNN Facility:[facility] Start: 05-28-2024 End: 05-28-2024 Patient encounter procedure Sarah Wynn MD Work Phone: [facility] Comment on above: Ischial bursitis of right side (Primary Dx) Start: 05-27-2024 End: 07-27-2024 Follow-up encounter Carolyn Smith APRN.CNP Work Phone: [facility] [employer] [facility] Start: 05-27-2024 End: 05-27-2024 [facility] Start: 05-27-2024 End: 05-27-2024 Office outpatient new 30 minutes Rosamaria Kincaid PA-C Work Phone: [facility] [employer] [facility] Comment on above: Influenza (Primary D x); POTS (postural orthostatic tachycardia syndrome) Start: 05-06-2024 End: 05-06-2024 ambulatory SARAH WYNN Facility:[facility] Start: 05-06-2024 End: 05-06-2024 Subsequent hospital visit by physician [facility] Radiology Comment on above: Ischial bursitis of right side [M70.71] Start: 04-17-2024 End: 04-17-2024 Telephone encounter [facility] Comment on above: Appointment Start: 04-16-2024 End: 04-16-2024 Patient encounter procedure Sarah Wynn MD Work Phone: [facility] Comment on above: Ischial bursitis of right side (Primary Dx) Start: 04-16-2024 End: 04-16-2024 ambulatory Sarah Wynn MD Work Phone: [employer] Comment on above: Requested informatio n Start: 04-16-2024 End: 04-16-2024 Subsequent hospital visit by physician Geovany [facility] Geraldo Work Phone: Radiology Comment on above: rt hamstring Start: 04-09-2024 End: 04-09-2024 Patient encounter procedure Tanika Ariellaruddy DO Work Phone: [facility] [employer] [facility] Comment on above: Ischial bursitis of right side (Primary Dx); Finger pain, right; Somatic dysfunction of head region; Somatic dysfunction of cervical region; Somatic dysfunction of thoracic region; Somatic dysfunction of lumbar region; Somatic dysfunction of sacral region; Somatic dysfunction of pelvis region; Somatic dysfunction of upper extremity; Somatic dysfunction of lower extremity Start: 04-09-2024 End: 04-09-2024 ambulatory TANIKA ALVES Facility:[facility] Start: 04-01-2024 End: 04-01-2024 Orders Only Sarah Wynn MD Work Phone: [facility] Comment on above: Pain (Primary Dx) Start: 03-05-2024 End: 03-05-2024 Patient encounter procedure Nico GAXIOLA -[facility] Work Phone: Start: 03-05-2024 End: 03-05-2024 ambulatory Nico GAXIOLA Facility[facility] Start: 02-15-2024 End: 02-15-2024 Patient encounter procedure Tanika Ariellaruddy DO Work Phone: [facility] Comment on above: Ischial bursitis of right side (Primary Dx); Chronic right SI joint pain; Finger pain, right; Somatic dysfunction of cervical region; Somatic dysfunction of thoracic region; Somatic dysfunction of lumbar region; Somatic dysfunction of sacral region; Somatic dysfunction of pelvis region; Somatic dysfunction of upper extremity Start: 02-15-2024 End: 02-15-2024 ambulatory TANIKA ALVES Facility:[facility] Start: 02-14-2024 End: 02-14-2024 ambulatory Tanika Alves DO Work Phone: [facility] Comment on above: Parking Alert Notice - [facility] Start: 02-14-2024 End: 02-14-2024 E-mail encounter from caregiver Tanika Alves DO Work Phone: [facility] Start: 01-03-2024 End: 01-03-2024 Patient encounter procedure Tanika Alves DO Work Phone: [facility] Comment on above: Chronic right SI pillo nt pain (Primary Dx); Finger pain, right; Somatic dysfunction of head region; Somatic dysfunction of cervical region; Somatic dysfunction of thoracic region; Somatic dysfunction of lumbar region; Somatic dysfunction of sacral region; Somatic dysfunction of pelvis region; Somatic dysfunction of upper extremity; Need for influenza vaccination; Need for vaccination; Somatic dysfunction of rib Start: 01-03-2024 End: 01-03-2024 ambulatory TANIKA ALVES Facility:[facility] Start: 12-07-2023 End: 12-07-2023 Patient encounter procedure Easton Parker MD Work Phone: [facility] Comment on above: Puncture wound of ri ght hand with foreign body, subsequent encounter (Primary Dx) Start: 12-07-2023 End: 12-07-2023 ambulatory EASTON PARKER Facility:[facility] Start: 12-03-2023 End: 12-03-2023 Patient encounter procedure Tanika Alves DO Work Phone: [facility] Comment on above: Finger pain, right ( Primary Dx); Chronic right SI joint pain; Somatic dysfunction of head region; Somatic dysfunction of cervical region; Somatic dysfunction of thoracic region; Somatic dysfunction of lumbar region; Somatic dysfunction of sacral region; Somatic dysfunction of pelvis region; Somatic dysfunction of upper extremity Start: 12-03-2023 End: 12-03-2023 ambulatory TANIKA ALVES Facility:[facility] Start: 11-21-2023 End: 11-21-2023 ambulatory Ama Hamilton Facility[facility] Start: 11-15-2023 End: 11-15-2023 Patient encounter procedure Tanika Carraudraruddy DO Work Phone: [facility] Comment on above: Chronic right SI pillo nt pain (Primary Dx); Tendinopathy of gluteus medius; Right hand pain; Somatic dysfunction of cervical region; Somatic dysfunction of thoracic region; Somatic dysfunction of lumbar region; Somatic dysfunction of sacral region; Somatic dysfunction of pelvis region; Somatic dysfunction of upper extremity Start: 11-15-2023 End: 11-15-2023 ambulatory TANIKA ALVES Facility:[facility] Start: 11-06-2023 ambulatory Natalya José Miguel Aguero [facility] Start: 11-06-2023 End: 11-06-2023 ambulatory [facility] José Miguel Aguero Facility:[facility] Start: 11-02-2023 End: 11-02-2023 Patient encounter procedure [facility] Parker [facility] Comment on above: Puncture wound of ri ght hand with foreign body, subsequent encounter (Primary Dx) Start: 11-02-2023 End: 11-02-2023 ambulatory EASTON PARKER Facility:[facility] Start: 10-29-2023 End: 10-29-2023 ambulatory Yamiledolorescuong Joy Facility[facility] Start: 10-26-2023 End: 10-26-2023 Patient encounter procedure Easton Parker MD Work Phone: [facility] Comment on above: Puncture wound of ri ght hand with foreign body, initial encounter (Primary Dx); Injury of right hand, initial encounter Start: 10-26-2023 End: 10-26-2023 ambulatory EASTON PARKER Facility:[facility] Start: 10-25-2023 Telephone encounter Ag Orth Work Phone: [facility] Comment on above: ER F/U ([facility] 10/24 W/C ) Start: 10-25-2023 End: 10-25-2023 Subsequent hospital visit by physician Geovany [facility] Work Phone: Radiology Comment on above: Injury of right hand , initial encounter [S69.91XA] Start: 10-25-2023 End: 10-25-2023 ambulatory AMA HAMILTON Facility:[facility] Start: 10-25-2023 End: 10-25-2023 Patient encounter procedure Antonio Vivar LEBRON Work Phone: [facility] Comment on above: Foreign body of righ t hand, initial encounter (Primary Dx); Injury of right hand, initial encounter; Need for tetanus booster Start: 10-02-2023 End: 10-02-2023 Patient encounter procedure Tanika Alves DO Work Phone: [facility] Comment on above: Finger pain, right ( Primary Dx); It band syndrome, right; Chronic pain of left knee; Neck pain; Somatic dysfunction of head region; Somatic dysfunction of cervical region; Somatic dysfunction of thoracic region; Somatic dysfunction of lumbar region; Somatic dysfunction of pelvis region; Somatic dysfunction of lower extremity; Somatic dysfunction of upper extremity Start: 10-02-2023 End: 10-02-2023 ambulatory TANIKA ALVES Facility:[facility] Start: 07-30-2023 End: 07-30-[address] Ama Hamilton Work Phone: [facility] Work Phone: Start: 07-30-2023 End: 07-30-[address] Ama Hamilton Work Phone: [facility]-Laboratory, Specimen Work Phone: Start: 07-30-2023 End: 07-30-[address] Ama Hamilton Work Phone: [facility] Work Phone: Start: 07-25-2023 End: 07-25-2023 Patient encounter procedure Tanika Alves DO Work Phone: [facility] Comment on above: Chronic right SI pillo nt pain (Primary Dx); Neck pain; Somatic dysfunction of head region; Somatic dysfunction of cervical region; Somatic dysfunction of thoracic region; Somatic dysfunction of lumbar region; Somatic dysfunction of sacral region; Somatic dysfunction of pelvis region; Somatic dysfunction of lower extremity Start: 06-11-2023 End: 06-11-[address] Ama Hamilton Work Phone: [facility] Work Phone: Start: 06-11-2023 End: 06-11-[address] Ama Hamilton Work Phone: [facility]-Physical Therapy Work Phone: Start: 06-06-[address] Ama Hamilton Work Phone: [facility] Start: 06-06-2023 End: 06-06-2023 Encounter for general adult medical examination without abnormal findings Dr. Ama Hamilton Work Phone: [facility] Start: 06-06-2023 End: 06-06-[address] Ama Hamilton Work Phone: [facility] Work Phone: Start: 05-16-2023 End: 05-16-2023 Patient encounter procedure Tanika Alves DO Work Phone: [facility] Comment on above: Neck pain (Primary D x); Tendinopathy of gluteus medius; It band syndrome, right; Left arm pain; Somatic dysfunction of cervical region; Somatic dysfunction of thoracic region; Somatic dysfunction of lumbar region; Somatic dysfunction of sacral region; Somatic dysfunction of pelvis region; Somatic dysfunction of lower extremity; Somatic dysfunction of upper extremity Start: 03-06-2023 End: 03-06-2023 Patient encounter procedure Tanika Alves DO Work Phone: [facility] Comment on above: Tendinopathy of glut eus medius (Primary Dx); Chronic right SI joint pain; Somatic dysfunction of thoracic region; Somatic dysfunction of lumbar region; Somatic dysfunction of sacral region; Somatic dysfunction of pelvis region; Somatic dysfunction of lower extremity Start: 01-24-2023 End: 01-24-2023 Patient encounter procedure Tanika Alves DO Work Phone: [employer] [facility] Comment on above: Chronic right should er pain (Primary Dx); Chronic right SI joint pain; Somatic dysfunction of head region; Somatic dysfunction of thoracic region; Somatic dysfunction of lumbar region; Somatic dysfunction of sacral region; Somatic dysfunction of pelvis region; Somatic dysfunction of upper extremity Start: 01-01-2023 End: 01-01-2023 Patient encounter procedure Tanika Alves DO Work Phone: [facility] [employer] [facility] Comment on above: Neck pain (Primary D x); Chronic right SI joint pain; Chronic right shoulder pain; Somatic dysfunction of head region; Somatic dysfunction of cervical region; Somatic dysfunction of thoracic region; Somatic dysfunction of lumbar region; Somatic dysfunction of sacral region; Somatic dysfunction of upper extremity; Somatic dysfunction of rib Start: 11-03-2022 End: 11-03-2022 Patient encounter procedure Tanika Alves DO Work Phone: [facility] [employer] Comment on above: Neck pain (Primary D x); Chronic right SI joint pain; Chronic left SI joint pain; Right knee pain, unspecified chronicity; Somatic dysfunction of head region; Somatic dysfunction of cervical region; Somatic dysfunction of thoracic region; Somatic dysfunction of lumbar region; Somatic dysfunction of sacral region; Somatic dysfunction of pelvis region; Somatic dysfunction of rib; Somatic dysfunction of upper extremity; Somatic dysfunction of lower extremity Start: 10-23-2022 End: 10-23-[address] Ama Hamilton Work Phone: [facility] Work Phone: Start: 10-23-2022 End: 10-23-[address] Ama Hamilton Work Phone: [facility] [place] Start: 09-13-2022 End: 09-13-[address] Ama Hamilton Work Phone: [facility] Work Phone: Start: 08-03-2022 End: 08-03-[address] Ama Hamilton Work Phone: [facility] Work Phone: Start: 08-03-2022 End: 08-03-[address] Ama Hamilton Work Phone: [facility]-Outpatient Breast Imaging Start: 07-27-2022 End: 07-27-[address] Ama Hamilton Work Phone: [facility] Start: 05-24-2022 End: 05-24-[address] Ama Hamilton Work Phone: [facility] Internal Medicine Start: 05-19-2022 End: 05-19-2022 Office outpatient visit 25 minutes Maxim Tat DO Work Phone: [facility] Comment on above: Chronic left SI join t pain (Primary Dx); Chronic pain of right knee; Chronic midline low back pain without sciatica; Somatic dysfunction of head region; Somatic dysfunction of cervical region; Somatic dysfunction of thoracic region; Somatic dysfunction of rib; Somatic dysfunction of lumbar region; Somatic dysfunction of pelvis region; Somatic dysfunction of sacral region; Somatic dysfunction of lower extremity; Somatic dysfunction of upper extremities Start: 05-05-2022 End: 05-05-[address] Ama Hamilton Work Phone: [facility] Start: 05-03-2022 End: 05-03-[address] Ama Hamilton Work Phone: [facility] Work Phone: Start: 05-03-2022 End: 05-03-[address] Ama Hamilton Work Phone: [facility] Start: 05-01-2022 End: 05-01-[address] Ama Hamilton Work Phone: [facility] Work Phone: Start: 05-01-2022 End: 02-06-[address] [facility] Start: 05-01-[address] Baltazar Hamilton Work Phone: [facility]-Physical Therapy Start: 04-21-2022 End: 04-21-2022 Office outpatient visit 25 minutes Tanika Alves Work Phone: [facility] Comment on above: Sacroiliac pain (Acacia kira Dx); Right knee pain, unspecified chronicity; Pes anserine bursitis; Neck pain; Somatic dysfunction of head region; Somatic dysfunction of cervical region; Somatic dysfunction of lumbar region; Somatic dysfunction of sacral region; Somatic dysfunction of pelvis region; Somatic dysfunction of lower extremity Start: 04-19-2022 End: 04-19-[address] Ama Hamilton Work Phone: [facility] Start: 03-08-[address] Baltazar Hamilton Work Phone: [facility]-Physical Therapy Start: 02-27-2022 End: 02-27-[address] Ama Hamilton Work Phone: [facility] Work Phone: Start: 02-27-2022 End: 02-27-[address] Ama Hamilton Work Phone: [facility]-Laboratory, Specimen Start: 02-27-2022 End: 02-27-[address] Ama Hamilton Work Phone: [facility] Internal Medicine Start: 02-23-2022 End: 02-23-2022 Emergency department patient visit Dr. Ama Hamilton Work Phone: [facility]-Emergency Department Start: 02-17-2022 End: 02-17-[address] Ama Hamilton Work Phone: [facility] Start: 02-09-[address] Baltazar Hamilton Work Phone: [facility]-Physical Therapy Start: 01-06-2022 End: 01-06-2022 Office outpatient visit 25 minutes Maxim Tat DO Work Phone: [employer] Comment on above: Right knee pain, uns pecified chronicity (Primary Dx); Pes anserine bursitis; Sacroiliac pain; Somatic dysfunction of sacral region; Somatic dysfunction of pelvis region; Somatic dysfunction of lower extremity; Somatic dysfunction of lumbar region Start: 12-02-2021 End: 12-02-2021 Office outpatient visit 15 minutes Maxim Tat DO Work Phone: [employer] Comment on above: Sacroiliac pain (Acacia kira Dx); Acute pain of right knee; Neck pain; Somatic dysfunction of head region; Somatic dysfunction of cervical region; Somatic dysfunction of thoracic region; Somatic dysfunction of sacral region; Somatic dysfunction of pelvis region; Somatic dysfunction of rib; Somatic dysfunction of lumbar region Start: 11-12-2021 End: 11-23-[address] Ama Hamilton Work Phone: [facility] Work Phone: Start: 11-12-2021 End: 11-23-[address] Ama Hamilton Work Phone: [facility]-Employee Health Start: 10-07-2021 End: 10-07-2021 Patient encounter procedure Fili Bassett DO Work Phone: [facility] Comment on above: Acute bilateral low back pain without sciatica (Primary Dx); SI (sacroiliac) joint dysfunction; Somatic dysfunction of lumbar region; Somatic dysfunction of pelvis region; Somatic dysfunction of lower extremity; Somatic dysfunction of abdominal region; Somatic dysfunction of rib region Start: 09-16-2021 End: 09-16-2021 Patient encounter procedure Fili Danyelle DO Work Phone: [facility] Comment on above: SI (sacroiliac) join t dysfunction (Primary Dx); Somatic dysfunction of spine, cervical; Somatic dysfunction of thoracic region; Somatic dysfunction of lumbar region; Somatic dysfunction of sacral region; Somatic dysfunction of pelvis region; Somatic dysfunction of lower extremity Start: 08-31-2021 End: 08-31-[address] Ama Hamilton Work Phone: [facility] Start: 06-24-2018 Patient encounter procedure [facility] Start: 04-18-[address] Ama Hamilton Work Phone: [facility] Start: 06-14-2017 End: 06-14-2017 Ambulatory IM[facility] Facility:[facility] Start: 06-06-2017 End: 06-07-2017 Evaluation and management of inpatient IMCA Facility:[facility] Start: 05-29-2017 End: 05-30-2017 Ambulatory [facility] Facility:[facility] Start: 05-10-2017 End: 05-10-2017 Ambulatory ROSAMARIA SU Facility:[facility] Start: 02-06-2017 End: 02-06-2017 Ambulatory [facility] Procedures Date Procedure Procedure Detail Performing Clinician Start: 09-03-2024 Us compl joint r-t w /image documentation Sarah Wynn MD Work Phone: Start: 08-12-2024 Osteopathic manipula tive tx 5-6 body regions Tanika Alves DO Work Phone: Start: 07-01-2024 Osteopathic manipula tive tx 7-8 body regions Tanika Alves DO Work Phone: Start: 06-25-2024 Bilateral mammography Luis Hamilton MD Work Phone: Start: 06-25-[address] mAa Hamilton MD Work Phone: Start: 05-06-2024 Arthrocentesis aspir &/inj major jt/bursa w/us Sarah Wynn MD Work Phone: Start: 04-16-2024 Radex hip unilateral with pelvis 2-3 views Sarah Wynn MD Work Phone: Start: 04-09-2024 Osteopathic manipula tive tx 7-8 body regions Tanika Alves DO Work Phone: Start: 02-15-2024 Osteopathic manipula tive tx 5-6 body regions Tanika Alves DO Work Phone: Start: 01-03-2024 Osteopathic manipula tive tx 7-8 body regions Tanika Krishnanois DO Work Phone: Start: 01-03-2024 PFIZER-BIONTECH COVI D-19 VACCINE AGE 12+ YR (COMIRNATY) Tanika Alves DO Work Phone: Start: 12-03-2023 Osteopathic manipula tive tx 5-6 body regions Tanika Krishnanois DO Work Phone: Start: 11-15-2023 Osteopathic manipula tive tx 5-6 body regions Tanika Krishnanois DO Work Phone: Start: 10-25-2023 Radex hand minimum 3 views Antonio Vivar APRN.CNP Work Phone: Start: 10-02-2023 Osteopathic manipula tive tx 7-8 body regions Tanika Krishnanois DO Work Phone: Start: 07-25-2023 Osteopathic manipula tive tx 7-8 body regions Tanika Krishnanois DO Work Phone: Start: 05-16-2023 Osteopathic manipula tive tx 7-8 body regions Tanika Krishnanois DO Work Phone: Start: 03-06-2023 Osteopathic manipula tive tx 5-6 body regions Tanika Carrurgeois DO Work Phone: Start: 01-24-2023 Osteopathic manipula tive tx 5-6 body regions Tanika Krishnanois DO Work Phone: Start: 01-01-2023 Osteopathic manipula tive tx 7-8 body regions Tanika Bourgeois DO Work Phone: Start: 08-03-2022 Screening mammography D jhonny Hamilton Work Phone: Start: 05-03-2022 MRI of joint of lowe r extremity Dr. Ama Hamilton Work Phone: Start: 02-17-2022 Radiologic examinati on of knee Dr. Ama Hamilton Work Phone: Start: 02-01-2021 Adult depression scr eening assessment Fili Bassett DO Work Phone: Influenza Types A,B Direct FA (AZAM) Dr. Ama Hamilton Work Phone: Influenza Types A,B Direct FA (AZAM) Dr. Ama Hamilton Work Phone: Viral antigen assay Dr. Aide Hamilton Work Phone: Plan of Treatment Date Care Activity Detail Author Start: 10-24-2033 Urine microalbumin profile DTaP,Tdap,Td Vaccine (2 - Td or Tdap) [facility] Start: 05-28-2027 Diabetes Screening Diabetes Screenin g [facility] Start: 10-02-2024 End: 10-02-2024 Patient encounter procedure 10/02/2024 8:45 AM EDT Office Visit [address] [address] Tanika Alves DO [address] [place] [id number] OMM/SI Joint OM [facility] Comment on above: OMM/SI Joint Start: 09-12-2024 End: 09-12-2024 Patient encounter procedure 09/12/2024 10:30 AM EDT Appointment Radiology [address] [address] RT HIP ARTHROGRAM Radiology Comment on above: RT HIP ARTHROGRAM Start: 09-09-2024 End: 09-09-2024 Patient encounter procedure 09/09/2024 2:15 PM EDT Office Visit [facility] [address] [place] [address] Sarah Wynn MD [address] [place] [address] Rt Hip MRI and US F/U [facility] Comment on above: Rt Hip MRI and US F/ U Start: 09-03-2024 End: 09-03-2024 Patient encounter procedure 09/03/2024 8:15 AM EDT Appointment Radiology [address] [place] [address] US HIP RT; POSTERIOR-EVAL HAMSTRING INSERTION+SCIATIC NERVE. HX OF GLUTE MED TENDON REPAIR Radiology Comment on above: US HIP RT; POSTERIOR -EVAL HAMSTRING INSERTION+SCIATIC NERVE. HX OF GLUTE MED TENDON REPAIR Start: 08-27-2024 End: 08-27-2024 Patient encounter procedure 08/27/2024 9:15 AM EDT Office Visit [facility] [address] [place] [address] Sarah Wynn MD [address] [place] [address] right hip f/u after MRI [facility] Comment on above: right hip f/u after MRI Start: 08-13-2024 End: 08-13-2024 Patient encounter procedure Radiology Comment on above: Pain of right hip [M 25.551] Authorized/als Start: 08-12-2024 End: 08-12-2024 Patient encounter procedure 08/12/2024 8:15 AM EDT Office Visit [facility] [address] [place] [address] Tanika Alves DO [address] [place] [address] 6 week follow up [facility] Comment on above: 6 week follow up Start: 07-30-2024 End: 07-30-2024 Patient encounter procedure 07/30/2024 3:30 PM EDT Office Visit [facility] [address] [place] [address] Sarah Wynn MD [address] [place], [place] [id number] 2 month right hip follow up [facility] Comment on above: 2 month right hip fo llow up Start: 07-01-2024 End: 07-01-2024 Patient encounter procedure 07/01/2024 9:15 AM EDT Office Visit [facility] [address] [place] [address] Tanika Alves DO [address] [place] [address] [facility] Comment on above: OMM/SI Joint Start: 06-05-2024 Patient referral [facility] Work Phone: Start: 05-28-2024 End: 05-28-2024 Patient encounter procedure 05/28/2024 8:15 AM EST Office Visit [facility] [address] [place] [address] Sarah Wynn MD [address] [place] [address] right hip follow up [facility] Comment on above: right hip follow up Start: 05-27-2024 End: 08-26-2024 C reactive protein [Mass/volume] in Serum or Plasma [facility] Comment on above: Expected: 05/27/2024 , Expires: 08/26/2024 Start: 05-27-2024 End: 08-26-2024 Comprehensive metabolic 2000 panel - Serum or Plasma [facility] Work Phone: Comment on above: Expected: 05/27/2024 , Expires: 08/26/2024 Start: 05-27-2024 End: 08-26-2024 TSH W/REFLEX FT4 [facility] Comment on above: Expected: 05/27/2024 , Expires: 08/26/2024 Start: 05-20-2024 End: 05-20-2024 Patient encounter procedure 05/20/2024 8:15 AM EST Office Visit [facility] [address] [place] [address] Tanika Alves DO [address] [place] [address] OMM/SI Joint [facility] Comment on above: OMM/SI Joint Start: 05-06-2024 End: 05-06-2024 Patient encounter procedure 05/06/2024 8:15 AM EST Appointment Radiology [address] [place] [address] US ASP/INJ HIP JT/BURSA RT; RT ISCHIAL BURSA INJ. Radiology Comment on above: US ASP/INJ HIP JT/BU RSA RT; RT ISCHIAL BURSA INJ. Start: 04-16-2024 End: 04-16-2024 Patient encounter procedure Radiology Comment on above: Rt Hamstring/Hip xra y Rt Hamstring pain, T enosynovitis, Looking for provider to do US Guided Injection Start: 04-09-2024 End: 04-09-2024 Patient encounter procedure [facility] Comment on above: OMM/SI Joint Start: 04-02-2024 End: 04-02-2024 Patient encounter procedure 04/02/2024 4:00 PM EST Office Visit Plastic Surgery [address] [facility] [address] [place] [address] Rosamaria Pitts MD [address] [facility] [address] [place] [address] deviated nasal septum Plastic Surgery Comment on above: deviated nasal septu m Start: 02-15-2024 End: 02-15-2024 Patient encounter procedure 02/15/2024 8:00 AM EST Office Visit [facility] [address] [place] [address] Tanika Alves DO [address] [place] [address] OMM/SI Joint [facility] Comment on above: OMM/SI Joint Start: 01-03-2024 End: 01-03-2024 Patient encounter procedure 01/03/2024 9:00 AM EDT Office Visit [facility] [address] [address] Tanika Alves DO [address] [place] [address] OMM/SI joint [facility] Comment on above: OMM/SI joint Start: 12-31-2023 End: 12-31-2023 Patient encounter procedure 12/31/2023 9:00 AM EDT Office Visit [facility] [address] [address] Tanika Alves DO [address] [place] [address] OMM/SI joint [facility] Comment on above: OMM/SI joint Start: 12-03-2023 End: 12-03-2023 Patient encounter procedure 12/03/2023 9:00 AM EDT Office Visit [facility] [address] [address] Tanika Alves DO [address] [place] [address] omm follow up [facility] Comment on above: omm follow up Start: 11-25-2023 Influenza vaccination Influenza Vacc ine (#1) [facility] Start: 11-15-2023 End: 11-15-2023 Patient encounter procedure [facility] Comment on above: OMM/SI Joint pain Start: 11-02-2023 End: 11-02-2023 Patient encounter procedure 11/02/2023 8:45 AM EDT Office Visit [facility] [address] [place] [address] Easton Parker MD [address] [place] [address] [facility] Comment on above: RIGHT HAND Start: 10-26-2023 End: 10-26-2023 Patient encounter procedure 10/26/2023 10:00 AM EDT Office Visit [facility] [address] [place] [address] Easton Parker MD [address] [place], [place] [id number] Rt hand/foreign body, [facility] 10[facility]24 [facility] Comment on above: Rt hand/foreign body , [facility] 10/24 Start: 03-26-2023 Behavioral Health Screening Behavioral Health Screening [facility] Start: 03-26-2023 [facility] Start: 11-24-2022 Influenza vaccination C [facility] Start: 05-24-2022 Patient referral [facility] Work Phone: Start: 03-26-2022 DEPRESSION ASSESSMENT DEPRESSION ASS ESSMENT [facility] Start: 02-17-2022 Patient referral [facility] Work Phone: Start: 02-01-2022 Adult depression screening assessment DEPRESSION SCREENING [facility] Start: 11-24-2021 COVID-19 VACCINE (5 - Booster for Moderna series) COVID-19 VACCINE (5 - Booster for Moderna series) [facility] Start: 11-24-2021 Influenza vaccination INFLUENZA (#1) [facility] Start: 07-13-2021 COVID-19 VACCINE (4 - Booster for Moderna series) COVID-19 VACCINE (4 - Booster for Moderna series) [facility] Start: 06-10-2021 DIABET[facility]CREEN [facility] Start: 06-10-2021 Diabetes Screening Diabetes Screenin g [facility] Start: 03-26-2021 DEPRESSION ASSESSMENT DEPRESSION ASS ESSMENT [facility] Start: 2018 Pneumococcal Vaccine : 50+ (1 of 1 - PCV) Pneumococcal Vaccine: 50+ (1 of 1 - PCV) [facility] Start: 2018 SHINGRIX VACCINE (1 of 2) SHINGRIX VACCINE (1 of 2) [facility] Start: 2013 COLOGUARD (FIT-DNA) COLOGUARD (FIT-D NA) [facility] Start: 2013 Colonoscopy COLONOSCOPY [facility] Start: 2013 COLORECTAL CANCER SCREENING COLORECTAL CANCER SCREENING [facility] Start: [address] COLONOGRAPHY [facility] Start: 2013 FECAL OCCULT BLOOD FECAL OCCULT BLOO D [facility] Start: 2013 Lipid 1996 panel - S tho or Plasma Lipid Screening [facility] Start: 2013 Lipid panel Lipid Screening [facility] Start: 2013 LIPID SCREEN LIPID SCREEN [facility] Start: 2013 Screening for malign ant neoplasm of colon [facility] Start: 2013 SIGMOIDOSCOPY SIGMOIDOSCOPY [facility] Start: 2008 Mammography [facility] Start: 2008 Screening for malign ant neoplasm of breast Mammogram Screening [facility] Start: 1998 HPV TESTING HPV TESTING [facility] Start: 1998 Screening for malign ant neoplasm of cervix HPV Testing [facility] Start: 1989 PAP TESTING PAP TESTING [facility] Start: 1989 Screening for malign ant neoplasm of cervix [facility] Start: 11-01-1987 Hepatitis B Vaccine (1 of 3 - 19+ 3-dose series) Hepatitis B Vaccine (1 of 3 - 19+ 3-dose series) [facility] Start: 11-01-1987 Urine microalbumin profile [facility] Start: 1986 Anxiety Screening Anxiety Screening [facility] Start: 1986 Depression Screening Depression Scre ening [facility] Start: 1986 HEPATITIS C SCREENING HEPATITIS C [facility] Start: 1986 Hepatitis C screening Hepatitis C [facility] Start: 1986 HIV SCREENING HIV SCREENING [facility] Start: 1986 HIV screening HIV Screening [facility] Start: 1968 HEPATITIS B (1 of 3 - 3-dose series) HEPATITIS B (1 of 3 - 3-dose series) [facility] Start: 1968 Hepatitis B Vaccine (1 of 3 - 3-dose series) Hepatitis B Vaccine (1 of 3 - 3-dose series) [facility] CBC W Auto Different ial panel - Blood [facility] CBC W Auto Different ial panel - Blood [facility] COVID & INFLUENZA A/ B & RSV PCR, ROUTINE COVID & INFLUENZA A/B & RSV PCR, ROUTINE Microbiology Routine Influenza 05/27/2024 10:51 AM EST [facility] End: 05-16-2025 Guidance for arthrocentesis of Major joint US ASP/INJ HIP JT/BURSA RIGHT Radiology Routine Ischial bursitis of right side 1 Occurrences starting 04/16/2024 until 05/16/2025 [facility] Work Phone: Comment on above: 1 Occurrences starti ng 04/16/2024 until 05/16/2025 End: 10-09-2025 Guidance for injection of Hip IMAGING GUIDED HIP INJECTION RIGHT Radiology Routine Acetabular labrum tear, right, subsequent encounter 1 Occurrences starting 09/09/2024 until 10/09/2025 [facility] Work Phone: Comment on above: 1 Occurrences starti ng 09/09/2024 until 10/09/2025 Lipid 1996 panel - S tho or Plasma [facility] Lipid 1995 panel - S tho or Plasma [facility] Lipid 1995 panel - S tho or Plasma [facility] MG Breast - bilatera l Screening [facility] End: 08-30-2025 MR Hip - right WO contrast MRI HIP WO IVCON RIGHT Radiology Routine Pain of right hip Ischial bursitis of right side Hamstring tendinitis of right thigh 1 Occurrences starting 07/30/2024 until 08/30/2025 [facility] Work Phone: Comment on above: 1 Occurrences starti ng 07/30/2024 until 08/30/2025 Osteopathic manipula tive tx 3-4 body regions OSTEOPATHIC MANIP,3-4 BODY REGN Procedures Routine Somatic dysfunction of sacral region Somatic dysfunction of pelvis region Somatic dysfunction of lower extremity Somatic dysfunction of lumbar region Ordered: 01/06/2022 [facility] Work Phone: Comment on above: Ordered: 01/06/2022 Osteopathic manipula tive tx 5-6 body regions OSTEOPATHIC MANIP,5-6 BODY REGN Procedures Routine Somatic dysfunction of spine, cervical Somatic dysfunction of thoracic region Somatic dysfunction of lumbar region Somatic dysfunction of sacral region Somatic dysfunction of pelvis region Somatic dysfunction of lower extremity SI (sacroiliac) joint dysfunction Ordered: 09/16/2021 [facility] Work Phone: Comment on above: Ordered: 09/16/2021 Osteopathic manipula tive tx 5-6 body regions OSTEOPATHIC MANIP,5-6 BODY REGN Procedures Routine SI (sacroiliac) joint dysfunction Acute bilateral low back pain without sciatica Somatic dysfunction of lumbar region Somatic dysfunction of pelvis region Somatic dysfunction of lower extremity Somatic dysfunction of abdominal region Somatic dysfunction of rib region Ordered: 10/07/2021 [facility] Work Phone: Comment on above: Ordered: 10/07/2021 Osteopathic manipula tive tx 5-6 body regions OSTEOPATHIC MANIP,5-6 BODY REGN Procedures Routine Somatic dysfunction of head region Somatic dysfunction of cervical region Somatic dysfunction of lumbar region Somatic dysfunction of sacral region Somatic dysfunction of pelvis region Somatic dysfunction of lower extremity Ordered: 04/21/2022 [facility] Work Phone: Comment on above: Ordered: 04/21/2022 Osteopathic manipula tive tx 7-8 body regions OSTEOPATHIC MANIP,7-8 BODY REGN Procedures Routine Somatic dysfunction of head region Somatic dysfunction of cervical region Somatic dysfunction of thoracic region Somatic dysfunction of sacral region Somatic dysfunction of pelvis region Somatic dysfunction of rib Somatic dysfunction of lumbar region Ordered: 12/02/2021 [facility] Work Phone: Comment on above: Ordered: 12/02/2021 Osteopathic manipula tive tx 9-10 body regions OSTEOPATHIC MANIP,9-10 BODY REGN Procedures Routine Somatic dysfunction of head region Somatic dysfunction of cervical region Somatic dysfunction of thoracic region Somatic dysfunction of rib Somatic dysfunction of lumbar region Somatic dysfunction of pelvis region Somatic dysfunction of sacral region Somatic dysfunction of lower extremity Somatic dysfunction of upper extremities Ordered: 05/19/2022 [facility] Work Phone: Comment on above: Ordered: 05/19/2022 Osteopathic manipula tive tx 9-10 body regions OSTEOPATHIC MANIP,9-10 BODY REGN Procedures Routine Somatic dysfunction of head region Somatic dysfunction of cervical region Somatic dysfunction of thoracic region Somatic dysfunction of lumbar region Somatic dysfunction of sacral region Somatic dysfunction of pelvis region Somatic dysfunction of rib Somatic dysfunction of upper extremity Somatic dysfunction of lower extremity Ordered: 11/03/2022 [facility] Work Phone: Comment on above: Ordered: 11/03/2022 Patient Education ED Influenza (Adult) [facility] Work Phone: Patient referral [facility] Work Phone: Thyroid stimulating hormone measurement [facility] End: 08-29-2025 US Hip - right US HIP RIGHT Radiology Routine Ischial bursitis of right side Hamstring tendinitis of right thigh 1 Occurrences starting 07/30/2024 until 08/29/2025 [facility] Comment on above: 1 Occurrences starti ng 07/30/2024 until 08/29/2025 US Pelvis [facility] End: 05-01-2025 XR Pelvis and Hip - right AP and Lateral frog XR HIP GENERAL 3V PELV/AP/LAT RIGHT Radiology Routine Pain 1 Occurrences starting 04/01/2024 until 05/01/2025 [facility] Work Phone: Comment on above: 1 Occurrences starti ng 04/01/2024 until 05/01/[address] [facility] Immunizations Immunization Date Immunization Notes Care Provider Maria T yao 01-03-2024 COVID-19 vaccine, ag e 12+ yr ([email or web address] [facility]) Tanika Alves DO Work Phone: [facility] 01-03-2024 influenza, seasonal, injectable Tanika Alves DO Work Phone: [facility] 10-25-2023 tetanus toxoid, redu americo diphtheria toxoid, and acellular pertussis vaccine, adsorbed Antonio Vivar APRN.[employer]MENT MANUFACTURER Work Phone: [facility] 01-02-2023 COVID-19 vaccine, ag e 12+ yr, season ([email or web address]) Tanika Alves DO Work Phone: [facility] 01-02-2023 influenza virus vaccine, unspecified formulation Tanika Alves DO Work Phone: [facility] 06-01-2022 Covid (Moderna) Dr. Richi Hamilton Work Phone: [facility] 01-18-2022 influenza virus vaccine, unspecified formulation Tanika Alves DO Work Phone: [facility] 01-20-2021 influenza virus vaccine, unspecified formulation Fili Danyelle DO Work Phone: [facility] 04-27-2020 COVID-19 vaccine, fu ll dose (MODERNA) Fili Danyelle DO Work Phone: [facility] 03-30-2020 COVID-19 vaccine, fu ll dose (MODERNA) Fili Danyelle DO Work Phone: [facility] 12-16-2019 influenza virus vaccine, unspecified formulation Sarah Wynn MD Work Phone: [facility] 01-21-2019 influenza, injectabl e, quadrivalent, contains preservative Fili Danyelle DO Work Phone: [facility] 01-03-2018 influenza virus vaccine, unspecified formulation Fili Danyelle DO Work Phone: [facility] 02-08-2017 influenza virus vaccine, unspecified formulation Fili Danyelle DO Work Phone: [facility] 01-13-2016 influenza virus vaccine, unspecified formulation Fili Danyelle DO Work Phone: [facility] 03-08-2015 influenza, injectabl e, quadrivalent, preservative free Dr. Ama Hamilton Work Phone: [facility] 03-08-2015 influenza, seasonal, injectable Dr. Ama Hamilton Work Phone: [facility] Payers Date Payer Category Payer Self-pay [id number] 2023 Government (not [facility] care or Medicaid) [employer] [id number] 2023 Unknown [id number] 2023 Unknown PENDING 2013 Private Health Insurance MMO SUP ERMED PPO [id number] 2013 Unknown MMO MMO SUPERMED PLUS [id number] 2013-Present [phone] [address] [place] [address] PPO [id number] 2013 Unknown [id number] 2013 Unknown [id number] Unknown [id number] Unknown [id number] Unknown [id number] Unknown [id number] Unknown [id number] Unknown [id number] Unknown [id number] Unknown [id number] Social History Date Type Detail Facility Start: 01-04-2017 End: 01-06-2022 Tobacco smoking status NHIS Never smoked tobacco [facility] Start: 09-16-2021 End: 09-09-2024 Alcohol intake Current drinker of alcohol (finding) [facility] Start: 01-04-2017 History SDOH Alcohol Comment Rarely. [facility] Start: 01-04-2017 End: 01-06-2022 Tobacco Comment No smoking in childhood or adult homes. [facility] Start: 1970 Sex Assigned At Female C [facility] Work Phone: Start: 09-06-2021 End: 01-06-2022 Exposure to SARS-CoV-2 (event) Not sure [facility] Work Phone (unformatted): [phone] Start: 08-31-2021 End: 07-30-2023 Tobacco smoking status NHIS Unknown if ever smoked [facility] Start: 01-04-2017 End: 01-06-2022 Tobacco use and exposure Smokeless tobacco non-user [facility] Work Phone: Start: 09-12-2022 End: 11-03-2022 History of Social function [facility] Start: 09-12-2022 End: 11-03-2022 Tobacco use panel [facility] Adult Depression Screening Assessment 0 [facility] Start: 01-04-2017 Gender identity Identifies as female gender (finding) [facility] Work Phone: Start: 01-04-2017 Sexual orientation Heterosexual (fin ding) [facility] Work Phone: Start: 06-28-2024 Sex Female (finding) [facility] Functional Status Date Assessment Result Facility 06-07-2017 Are you deaf, or do you have serious difficulty hearing No 06/07/2017 10:13 AM Josefina Fox RN No [facility] 06-07-2017 Are you blind, or do you have serious difficulty seeing, even when wearing glasses No 06/07/2017 10:13 AM Josefina Fox RN No [facility] 06-07-2017 Do you have serious difficulty walking or climbing stairs No 06/07/2017 10:13 AM Josefina Fox, AKIRA No [facility] 06-07-2017 Do you have difficul ty dressing or bathing No 06/07/2017 10:13 AM Josefina Fox, AKIRA No [facility] 06-07-2017 Because of a physica l, mental, or emotional condition, do you have difficulty doing errands alone such as visiting a physician's office or shopping No 06/07/2017 10:13 AM Josefina Fox RN No [facility] Mental Status Date Assessment Result Facility 02-23-2022 Cognitive function Level Of Cons ciousness Awake;Alert;Appropriate;Fol lows Commands [facility] Work Phone: 06-07-2017 Because of a physica l, mental, or emotional condition, do you have serious difficulty concentrating, remembering, or making decisions No 06/07/2017 10:13 AM Josefina Fox RN No [facility] Clinical Notes 11-01-2017 to 09-09-2024 Sarah Wynn MD - 09/09/2024 2:19 PM EDTPatient InstructionsLong TanikaDO - 08/12/2024 8:12 AM EDTTelephone Encounter - Fabby Guillory - 07/31/2024 9:24 AM EDTPatient Instructions Note Date & Type Note Facility 09-09-2024 History of Present illness Narrative Images from the original note were not included. DEPARTMENT OF ORTHOPAEDICS Chief Complaint: Right hip pain Patient returns for follow up of right hip/buttocks pain Last seen 07-30-24 Patient reports no interim trauma since last visit. Patient reports anything that she does irritate her symptoms. She reports pain in several different spots around her hip (anterior, groin, lateral, posterior, buttocks). Since her last visit, the groin pain is new. MRI of the patient's right hip was completed on 08-13-24. Images were reviewed in detail with the patient. MRI shows right hip acetabular labral tear with minimal paralabral chondrosis. Bilateral gluteus medius insertional tendon repair. Right greater than left insertional signal and thickening which could be postoperative and/or tendinosis. Mild right trochanteric bursitis. Mild right hamstring origin tendinosis without tear. PHYSICAL EXAM: [facility] 10/25/2023 General: Appears stated age, well built, in no apparent distress. Psychiatric: Mood and affect appropriate. Alert and oriented x 3 without evidence of abnormal respiratory effort. Musculoskeletal Exam: Gait normal, Posture: erect and normal. Exam: Right Left Single Leg Trendelenburg Negative Negative Hip flexion 100 100 IR 30 30 ER 60 60 Anterior impingement positive negative Dynamic labral stress positive negative BERLIN positive negative Posterior Impingement negative negative DHIRAJ negative negative Strength Supine HF 5/5 5/5 Upright HF 5/5 5/5 Adduction 5/5 5/5 Abduction 5/5 5/5 Tenderness with Palpation: Right Left Greater Troch Positive Negative Gluteus Medius Positive Negative Piriformis Negative Negative IMPRESSION: (S73.191D) Acetabular labrum tear, right, subsequent encounter (primary encounter diagnosis) PLAN: 1. Medication: None. 2. Test(s)/Imaging/Referral(s): Right hip joint injection. 3. Intervention: Continue conservative treatment. Discussed the role for a right hip joint injection. Patient has pain in several different areas around her hip. Discussed the potential outcomes following the injection. - patient gets good relief = continue with PT and monitor - patient gets good relief but this is short lived - potential hip arthroscopy to address her labral tear - patient does not get any relief at all - potential referral to tendon clinic Patient will monitor her response both initially and after 2-3 weeks. She will call or MyChart us with the response. We will triage the next steps accordingly. Patient is on board with the plan and all questions were answered. They will let us know if there are any issues in the interim. 4. Follow-up: Return for contact office 2-3 weeks after injection with update on symptoms. Scribe Attestation: By signing my name below, I, ERNST Rodas, attest that this documentation has been prepared under the direction and in the presence of Sarah Wynn M.D. Electronically Signed:ERNST Rodas, September 09, 2024 2:19 PM I agree with the Chief Complaint, ROS, and Past Histories independently gathered by the clinical business support administrator and the remaining scribed note accurately describes my personal service to the patient. Sarah Wynn MD documented in this encounter [facility] 08-13-2024 Note HNO ID: [id number] Author: MASON GREEN RT(Maximilian) Service: Radiology Author Type: [employer] Producer Type: Progress Notes Filed: 08/13/2024 11:22 Note Text: Radiology Service Progress Note PATIENT NAME: Margot Hu DATE OF SERVICE: August 13, 2024 TIME: 8:47 AM PATIENT IDENTITY VERIFICATION COMPLETED USING TWO (2) IDENTIFIERS: Name and Date of confirmed by patient verbally. FALL SCREENING: Has the patient had 2 falls in the last year or 1 fall with injury or currently using an Ambulatory Assistive Device (Walker, Cane, Wheelchair, Crutches, etc.)? No PATIENT GENDER DATA: Assigned female at . status: : No status: NO. PATIENT RELEVANT IMPLANT DATA REVIEWED: Yes PATIENT PRESENTS WITH AN IMPLANTABLE OR ATTACHED HAND PAINTER: No RADIOLOGY DEPARTMENT: ; Exam(s) Completed: Lower MSK: Hip, right . Lavender Administered: No PERIPHERAL IV DATA: Not applicable SIGNED BY: RT Baylee(R) August 13, 2024 8:47 AM [facility] 08-12-2024 Instructions Tanika Alves DO - 08/12/2024 8:46 AM EDT Please note the following after treatment with Osteopathic Manipulative Treatment: 1. General aching can occur after manipulative treatment for 1-3 days. You may feel nauseous or unwell for a few hours after the treatment, please call if these symptoms persist for more than 24 hours. 2. Please drink an additional 8-16 ounces of water today. This will help reduce the chance of side effects. 3. Please do not engage in heavy lifting or other strenuous activity for 2 days. 4. Please call if you experience new numbness, weakness, or strong or sharp pain. This is not expected after manipulative treatment and should be evaluated. 5. Please minimize sugar, alcohol, and caffeine for the next 24 hours. Please eat a low-protein meal tonight to reduce nitrogen load on your kidneys. 6. Ensure you are getting adequate sleep; sleep is the time when your body does most of its healing. As a general rule, 7 hours of sleep per night is usually adequate. If you have any further questions or would like clarification on the above instructions, please call our office at [phone]. A message will be left with our physician staff and we will return your phone call as soon as possible. Please leave a current phone number to reach you back. If you need to cancel an appointment, it is important to make our office aware 24-48 hours before cancelling, for us to reschedule that appointment for you. You can call our appointment line at [phone] and press option number 1 to leave a message. Please leave a current phone number to reach you back. documented in this encounter [facility] 08-12-2024 Note HNO ID: [id number] Author: TANIKA ALVES DO Service: ? Author Type: Physician Type: Progress Notes Filed: 08/12/2024 09:15 Note Text: Osteopathic Neuromusculoskeletal Medicine Progress Note Name: Margot Hu Date of : 1970 PCP: Ama Hamilton MD Date of Exam: August 12, 2024 This note was completed using [id number] AI Scribe; use of the scribe was explained to the patient who gave verbal consent to use of an AI scribe. Chief Complaint: This is Margot Hu, a 53 year old female who presents with Patient presents with: Rib pain on left side AMB ROOMING INTAKE FLOWSHEET DATA Pain Pain Level: 3 Pain Location: Buttocks-Right Description: Aching Duration Units: Months Frequency: Intermittent Intervention/Comfort measure: Relaxation, Reposition, Exercise, Cold, Medication, Positioning SUBJECTIVE History of Present Illness: Margot is a 53-year-old female presenting with bilateral hip pain, left rib pain, and right ischial tuberosity pain. Margot reports a recurrence of right hip pain, now accompanied by left hip and left rib pain. She is currently taking meloxicam and has an MRI for her hip scheduled for tomorrow. She describes the pain in her right ischial tuberosity as sharp and notes that it began suddenly while she was sitting in a car, without any preceding injury. The pain has been severe enough to prevent her from lying on either side while sleeping. She also reports a distinct pain on the medial part of the ischial tuberosity, which persisted even after a previous injection that alleviated bursitis. Additionally, Margot experiences stabbing pain in her left ribs, which is exacerbated by certain movements and relieved by bending to the left. She also notes that activities such as raking sticks after a storm have caused prolonged aching in her ribs. She mentions that her iliotibial band pain is not well-controlled and describes a sensation of nerve pain when pressure is applied to her abdomen during aerial yoga. She has an ultrasound scheduled to further investigate her symptoms. Medical, surgical, and family histories reviewed. Allergies and social history reviewed. Review of Systems: Constitutional: (+) sleep disturbance Musculoskeletal: (+) right hip pain, (+) left hip pain, (+) left rib pain, (+) sharp pain OBJECTIVE BP 126/70 Pulse 71 Temp (Src) 97.9 (Temporal) Wt 164 lb 14.5 oz (74.8kg) LMP 10/25/2023 GENERAL: NAD, alert and oriented SKIN: unremarkable, no rash or skin lesions. HEAD: normocephalic. Suboccipital hypertonicity. NOSE/SINUSES: Nares normal. Septum midline. OROPHARYNX: lips, mucosa, and tongue normal, good dentition. No oral lesions noted. NECK: Supple. EXTREMITIES: Normal, No deformities, No skin discoloration, No edema. NEURO: Awake, alert, normal gait, no involuntary motions MSK: Tender point on the mid axillary line on left rib 6. Left rib 6 also slightly inhaled. No significant somatic dysfunction in the cervical or thoracic spine. L5 flexed, rotated and side bent right. Mild to moderate bilateral lumbar paraspinal hypertonicity, slightly more pronounced on the right. Right innominate anteriorly rotated and out flared. Right sacroiliac ligament tight. Left on right sacral torsion. Trigger band noted just inferior of the ASIS and tracking anterolaterally to about 5 cm inferior of the right greater trochanter. ASSESSMENT AND PLAN Chronic right si joint pain (primary encounter diagnosis) Rib pain on left side Somatic dysfunction of head region Somatic dysfunction of lumbar region Somatic dysfunction of sacral region Somatic dysfunction of pelvis region Somatic dysfunction of rib Somatic dysfunction of lower extremity Orders Placed This Encounter Osteopathic manipulative treatment (OMT) Order Comments: This order was created via procedure documentation Patient presents for follow-up, reporting brief flareup of the chronic right hip pain, extending into the right IT band. Also having flare of left rib pain. OMT has provided some relief for this in the past; she is also undergoing orthopedic workup. Somatic dysfunction correlating with her symptoms was identified on exam today. OMT was performed today to improve function and reduce symptoms with good effect. See procedure note below. Return in about 6 weeks (around 09/23/2024). 25 minutes were spent on the date of service was dedicated to preparing to see the patient, [id number] patient care, completing clinical documentation, obtaining and/or reviewing separately obtained history, performing a medically appropriate examination, counseling and educating the patient/family/caregiver, and time excludes procedure OMT. This note was partially generated using voice recognition software as well as an AI scribe. It has been reviewed for typographical errors, however some may remain. Any questions regarding (more content not included)... [facility] 08-12-2024 History of Present illness Narrative Associated Order(s): Osteopathic manipulative treatment (OMT) Post-Procedure Diagnose(s): Somatic dysfunction of lumbar region; Somatic dysfunction of sacral region; Somatic dysfunction of pelvis region; Chronic right SI joint pain; Somatic dysfunction of lower extremity; Rib pain on left side; Somatic dysfunction of head region; Somatic dysfunction of rib Images from the original note were not included. Osteopathic Neuromusculoskeletal Medicine Progress Note Name: Margot Hu Date of : 1970 PCP: Ama Hamilton MD Date of Exam: August 12, 2024 This note was completed using [employer] AI Scribe; use of the scribe was explained to the patient who gave verbal consent to use of an AI scribe. Chief Complaint: This is Margot Hu, a 53 year old female who presents with Patient presents with: Rib pain on left side AMB ROOMING INTAKE FLOWSHEET DATA Pain Pain Level: 3 Pain Location: Buttocks-Right Description: Aching Duration Units: Months Frequency: Intermittent Intervention/Comfort measure: Relaxation, Reposition, Exercise, Cold, Medication, Positioning SUBJECTIVE History of Present Illness: Margot is a 53-year-old female presenting with bilateral hip pain, left rib pain, and right ischial tuberosity pain. Margot reports a recurrence of right hip pain, now accompanied by left hip and left rib pain. She is currently taking meloxicam and has an MRI for her hip scheduled for tomorrow. She describes the pain in her right ischial tuberosity as sharp and notes that it began suddenly while she was sitting in a car, without any preceding injury. The pain has been severe enough to prevent her from lying on either side while sleeping. She also reports a distinct pain on the medial part of the ischial tuberosity, which persisted even after a previous injection that alleviated bursitis. Additionally, Margot experiences stabbing pain in her left ribs, which is exacerbated by certain movements and relieved by bending to the left. She also notes that activities such as raking sticks after a storm have caused prolonged aching in her ribs. She mentions that her iliotibial band pain is not well-controlled and describes a sensation of nerve pain when pressure is applied to her abdomen during aerial yoga. She has an ultrasound scheduled to further investigate her symptoms. Medical, surgical, and family histories reviewed. Allergies and social history reviewed. Review of Systems: Constitutional: (+) sleep disturbance Musculoskeletal: (+) right hip pain, (+) left hip pain, (+) left rib pain, (+) sharp pain OBJECTIVE BP 126/70 Pulse 71 Temp (Src) 97.9 (Temporal) Wt 164 lb 14.5 oz (74.8kg) LMP 10/25/2023 GENERAL: NAD, alert and oriented SKIN: unremarkable, no rash or skin lesions. HEAD: normocephalic. Suboccipital hypertonicity. NOSE/SINUSES: Nares normal. Septum midline. OROPHARYNX: lips, mucosa, and tongue normal, good dentition. No oral lesions noted. NECK: Supple. EXTREMITIES: Normal, No deformities, No skin discoloration, No edema. NEURO: Awake, alert, normal gait, no involuntary motions MSK: Tender point on the mid axillary line on left rib 6. Left rib 6 also slightly inhaled. No significant somatic dysfunction in the cervical or thoracic spine. L5 flexed, rotated and side bent right. Mild to moderate bilateral lumbar paraspinal hypertonicity, slightly more pronounced on the right. Right innominate anteriorly rotated and out flared. Right sacroiliac ligament tight. Left on right sacral torsion. Trigger band noted just inferior of the ASIS and tracking anterolaterally to about 5 cm inferior of the right greater trochanter. ASSESSMENT & PLAN Chronic right si joint pain (primary encounter diagnosis) Rib pain on left side Somatic dysfunction of head region Somatic dysfunction of lumbar region Somatic dysfunction of sacral region Somatic dysfunction of pelvis region Somatic dysfunction of rib Somatic dysfunction of lower extremity Orders Placed This Encounter Osteopathic manipulative treatment (OMT) Order Comments: This order was created via procedure documentation Patient presents for follow-up, reporting brief flareup of the chronic right hip pain, extending into the right IT band. Also having flare of left rib pain. OMT has provided some relief for this in the past; she is also undergoing orthopedic workup. Somatic dysfunction correlating with her symptoms was identified on exam today. OMT was performed today to improve function and reduce symptoms with good effect. See procedure note below. Return in about 6 weeks (around 09/23/2024). 25 minutes were spent on the date of service was dedicated to preparing to see the patient, [id number] patient care, completing clinical documentation, obtaining and/or reviewing separately obtained history, performing a medically appropriate examination, counseling and educating the patient/family/caregiver, and time excludes procedure OMT. This note was partially generated using voice recognition software as well as an AI scribe. It has been reviewed for typographical errors, however some may remain. Any questions regarding meaning or word use should be directed to the author. Tanika Alves DO 8:12 AM 08/12/2024 Procedure Osteopathic manipulative treatment (OMT) Time/Date:08/12/2024 9:13 AM Informed Consent Consent Obtained: Verbal [place] Protocol A moment to CARE was completed. SIGN IN Special Equipment: N/A Patient/Surrogate Stated/Verified: Patient name, Date of and Intended procedure TIME OUT Consent documented and matches the intended procedure. Consent Obtained:Verbal Body Regions: Head, Ribs, Lumbar, Sacrum, Pelvis and Lower Extremities Head Technique: suboccipital release Ribs Technique: counterstrain Lumbar Technique: myofascial release Sacrum Technique: balanced ligamentous tension, myofascial release Pelvis Technique: balanced ligamentous tension, myofascial release Lower Extremities Technique:counterstrain, myofascial release Number of Body Regions: 5- 6 Disposition: Osteopathic manipulation tolerated well, reports subjective and objective improvement, improvement in range of motion and mechanics, instructed to increase hydration for the next 24 hours and instructed to follow up if symptoms worsen or fail to improve documented in this encounter [facility] 07-31-2024 Telephone encounter Note PT scheduled for MSK US on 09/03/24 at 8:15 AM at Sports [facility] 07-31-2024 Miscellaneous Notes PT scheduled for MSK US on 09/03/24 at 8:15 AM at Sports Visit Type: US MSK1 Visit Length: 45 OR 60 MINUTES Order Name/Protocol: US HIP RT; POSTERIOR-EVAL HAMSTRING INSERTION+SCIATIC NERVE. HX OF GLUTE MED TENDON REPAIR Preferred Provider: N/A Comment: N/A Location: [facility] Slot held: N/A documented in this encounter [facility] 07-31-2024 Telephone encounter Note Visit Type: US MSK1 Visit Length: 45 OR 60 MINUTES Order Name/Protocol: US HIP RT; POSTERIOR-EVAL HAMSTRING INSERTION+SCIATIC NERVE. HX OF GLUTE MED TENDON REPAIR Preferred Provider: N/A Comment: N/A Location: [facility] Slot held: N/A [facility] 07-30-2024 Note HNO ID: [id number] Author: SARAH WYNN MD Service: ? Author Type: Physician Type: Progress Notes Filed: 07/30/2024 15:49 Note Text: DEPARTMENT OF ORTHOPAEDICS Chief Complaint: Right hip pain Patient returns for follow up of right hip pain. Last seen 05-28-24 Patient reports no interim trauma. Patient states she was making some improvements up until about 2 weeks ago. No new trauma. Pain is in several different spots around her hip - lateral, proximal hamstring, gluteal region. Pain is affecting ADL's. PHYSICAL EXAM: [facility] 10/25/2023 General: Appears stated age, well built, in no apparent distress. Psychiatric: Mood and affect appropriate. Alert and oriented x 3 without evidence of abnormal respiratory effort. Musculoskeletal Exam: Gait normal, Posture: erect and normal. Exam: Right Left Single Leg Trendelenburg Negative Negative Hip flexion 100 100 IR 20 20 ER 50 50 Anterior impingement negative negative Dynamic labral stress negative negative BERLIN negative negative Posterior Impingement negative negative DHIRAJ negative negative Strength Supine HF 5/5 5/5 Upright HF 5/5 5/5 Adduction 5/5 5/5 Abduction 5/5 5/5 Tenderness with Palpation: Right Left Greater Troch Positive Negative Gluteus Medius Positive Positive Piriformis Positive Negative TTP right ischium IMPRESSION: Ischial bursitis of right hip PLAN: 1. Medication: Mobic 15mg PO q Day with meals PRN 2. Test(s)/Imaging/Referral(s): MRI and US Justification for advanced imaging based on the following: failed conservative treatment, an adequate course of formal physical therapy without relief, an adequate course of an in home rehabilitation program without relief, the use of analgesics including anti-inflammatory medication, when not contra-indicated, without relief, the use of corticosteroids, when not contra-indicated, without relief, activity modification, continued pain and weakness, and duration of symptoms without relief. 3. Intervention: Continue conservative treatment. We will obtain update imaging to further evaluate. Last MRI was in 2022. Patient is having recurrent right hip pain in several different spots around her hip joint. She also is s/p glute med repair several years ago. We will follow up with the patient after imaging is completed to go over the results and set up the next steps accordingly. Patient is on board with the plan and all questions were answered. They will let us know if there are any issues in the interim. 4. Follow-up: In office or virtual follow up after imaging is completed. Scribe Attestation: By signing my name below, I, ERNST Rodas, attest that this documentation has been prepared under the direction and in the presence of Sarah Wynn M.D. Electronically Signed:ERNST Rodas, July 30, 2024 3:33 PM I agree with the Chief Complaint, ROS, and Past Histories independently gathered by the clinical business support administrator and the remaining scribed note accurately describes my personal service to the patient. Sarah Wynn MD [facility] 07-30-2024 History of Present illness Narrative Images from the original note were not included. DEPARTMENT OF ORTHOPAEDICS Chief Complaint: Right hip pain Patient returns for follow up of right hip pain. Last seen 05-28-24 Patient reports no interim trauma. Patient states she was making some improvements up until about 2 weeks ago. No new trauma. Pain is in several different spots around her hip - lateral, proximal hamstring, gluteal region. Pain is affecting ADL's. PHYSICAL EXAM: LMP 10/25/2023 General: Appears stated age, well built, in no apparent distress. Psychiatric: Mood and affect appropriate. Alert and oriented x 3 without evidence of abnormal respiratory effort. Musculoskeletal Exam: Gait normal, Posture: erect and normal. Exam: Right Left Single Leg Trendelenburg Negative Negative Hip flexion 100 100 IR 20 20 ER 50 50 Anterior impingement negative negative Dynamic labral stress negative negative BERLIN negative negative Posterior Impingement negative negative DHIRAJ negative negative Strength Supine HF 5/5 5/5 Upright HF 5/5 5/5 Adduction 5/5 5/5 Abduction 5/5 5/5 Tenderness with Palpation: Right Left Greater Troch Positive Negative Gluteus Medius Positive Positive Piriformis Positive Negative TTP right ischium IMPRESSION: Ischial bursitis of right hip PLAN: 1. Medication: Mobic 15mg PO q Day with meals PRN 2. Test(s)/Imaging/Referral(s): MRI and US Justification for advanced imaging based on the following: failed conservative treatment, an adequate course of formal physical therapy without relief, an adequate course of an in home rehabilitation program without relief, the use of analgesics including anti-inflammatory medication, when not contra-indicated, without relief, the use of corticosteroids, when not contra-indicated, without relief, activity modification, continued pain and weakness, and duration of symptoms without relief. 3. Intervention: Continue conservative treatment. We will obtain update imaging to further evaluate. Last MRI was in 2022. Patient is having recurrent right hip pain in several different spots around her hip joint. She also is s/p glute med repair several years ago. We will follow up with the patient after imaging is completed to go over the results and set up the next steps accordingly. Patient is on board with the plan and all questions were answered. They will let us know if there are any issues in the interim. 4. Follow-up: In office or virtual follow up after imaging is completed. Scribe Attestation: By signing my name below, I, ERNST Rodas, attest that this documentation has been prepared under the direction and in the presence of Sarah Wynn M.D. Electronically Signed:ERNST Rodas, July 30, 2024 3:33 PM I agree with the Chief Complaint, ROS, and Past Histories independently gathered by the clinical business support administrator and the remaining scribed note accurately describes my personal service to the patient. Sarah Wynn MD documented in this encounter [facility] 07-01-2024 Note HNO ID: [id number] Author: TANIKA ALVES, DO Service: ? Author Type: Physician Type: Progress Notes Filed: 07/01/2024 09:49 Note Text: Osteopathic Neuromusculoskeletal Medicine Progress Note Name: Margot Hu Date of : 1970 PCP: Ama Hamilton MD Date of Exam: July 01, 2024 This note was completed using [id number] AI Scribe; use of the scribe was explained to the patient who gave verbal consent to use of an AI scribe. 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 Margot reports right axillary pain that began as intermittent pangs in March and significantly worsened at the end of April. The pain radiates along the path of the serratus anterior muscle and is associated with tenderness in the axillary region. She describes the pain as severe, stating it felt like her bra was attacking her while driving to work. The pain is exacerbated by pressure, such as during an ultrasound, and is not relieved by breath. She denies any issues with breathing. A diagnostic mammogram and ultrasound were performed, both of which were reportedly normal. She also visited urgent care for a fever, during which the axillary pain was noted to be severe. Additionally, Margot reports a recent onset of right shoulder pain that began suddenly five days before a scheduled rock climbing trip during spring. She woke up with an inability to abduct her arm without sharp pain in the posterior shoulder. The pain does not affect her ability to flex or extend the arm and does not disturb her sleep. She took meloxicam, which provided relief. Margot has a history of hamstring tendinopathy and bursitis, for which she received an injection in March. She reports significant improvement in her symptoms, stating she can sit without pain. However, she still experiences mild discomfort in the tendon, particularly during yoga. She is working on hamstring lengthening exercises. She also mentions a history of hip flexor pain and deep glute syndrome, which were alleviated by the injection. She has been taking meloxicam for these conditions but reports it was ineffective prior to the injection. Medical, surgical, and family histories reviewed. Allergies and social history reviewed. Review of Systems: Musculoskeletal: (+) right armpit pain, (+) right shoulder pain, (+) hamstring tightness, (+) tendon pain OBJECTIVE BP 115/71 Pulse 66 Temp (Src) 96.4 (Temporal) Wt 162 lb 11.2 oz (73.8kg) LMP 10/25/2023 GENERAL: NAD, alert and oriented. SKIN: Unremarkable, no rash or skin lesions. HEAD: Normocephalic. OA flexed sidebent right, rotated left. NECK: Supple, C5 extended, rotated and sidebent right. EXTREMITIES: Normal, no deformities, no skin discoloration, no edema. NEURO: Awake, alert, normal gait, no involuntary motions. MUSCULOSKELETAL: - T7 flexed, rotated and sidebent left. - Left rib 6, posterior and inhaled. - Right serratus, tender point. - Right innominate anteriorly rotated. - Sacrum flexed, sidebent right and rotated left. - L5 flexed, rotated and sidebent right. - Hypertonicity in right teres minor and major and infraspinatus. ASSESSMENT AND PLAN Rib pain on left side (primary encounter diagnosis) Chronic right shoulder pain Chronic right si joint pain Somatic dysfunction of head region Somatic dysfunction of cervical region Somatic dysfunction of thoracic region Somatic dysfunction of lumbar region Somatic dysfunction of sacral region Somatic dysfunction of pelvis region Somatic dysfunction of rib Somatic dysfunction of upper extremity Orders Placed This Encounter Osteopathic manipulative treatment (OMT) Order Comments: This order was created via procedure documentation Patient presents for follow-up. Previously noted right ischial bursitis is much improved after corticosteroid injections. Presently, reporting acute pain in the left lateral rib cage consistent with a counterstrain tender point, as well as waxing and waning chronic pain in the posterior aspect of the right shoulder, musculoskeletal in nature. Her chronic right SI joint pain is also present, though mild at this time. Somatic dysfunction correlating with her symptoms was identified on exam today. OMT was performed today to improve function and reduce symptoms with good effect. See procedure note below. Return in about 6 weeks (around 5 (more content not included)... [facility] 07-01-2024 History of Present illness Narrative Associated Order(s): Osteopathic manipulative treatment (OMT) Post-Procedure Diagnose(s): Somatic dysfunction of cervical region; Somatic dysfunction of thoracic region; Somatic dysfunction of lumbar region; Somatic dysfunction of sacral region; Somatic dysfunction of pelvis region; Chronic right shoulder pain; Chronic right SI joint pain; Rib pain on left side; Somatic dysfunction of head region; Somatic dysfunction of rib; Somatic dysfunction of upper extremity Images from the original note were not included. Osteopathic Neuromusculoskeletal Medicine Progress Note Name: Margot Hu Date of : 1970 PCP: Ama Hamilton MD Date of Exam: July 01, 2024 This note was completed using [employer] AI Scribe; use of the scribe was explained to the patient who gave verbal consent to use of an AI scribe. 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 Margot reports right axillary pain that began as intermittent pangs in March and significantly worsened at the end of April. The pain radiates along the path of the serratus anterior muscle and is associated with tenderness in the axillary region. She describes the pain as severe, stating it felt like her bra was attacking her while driving to work. The pain is exacerbated by pressure, such as during an ultrasound, and is not relieved by breath. She denies any issues with breathing. A diagnostic mammogram and ultrasound were performed, both of which were reportedly normal. She also visited urgent care for a fever, during which the axillary pain was noted to be severe. Additionally, Margot reports a recent onset of right shoulder pain that began suddenly five days before a scheduled rock climbing trip during spring. She woke up with an inability to abduct her arm without sharp pain in the posterior shoulder. The pain does not affect her ability to flex or extend the arm and does not disturb her sleep. She took meloxicam, which provided relief. Margot has a history of hamstring tendinopathy and bursitis, for which she received an injection in March. She reports significant improvement in her symptoms, stating she can sit without pain. However, she still experiences mild discomfort in the tendon, particularly during yoga. She is working on hamstring lengthening exercises. She also mentions a history of hip flexor pain and deep glute syndrome, which were alleviated by the injection. She has been taking meloxicam for these conditions but reports it was ineffective prior to the injection. Medical, surgical, and family histories reviewed. Allergies and social history reviewed. Review of Systems: Musculoskeletal: (+) right armpit pain, (+) right shoulder pain, (+) hamstring tightness, (+) tendon pain OBJECTIVE BP 115/71 Pulse 66 Temp (Src) 96.4 (Temporal) Wt 162 lb 11.2 oz (73.8kg) LMP 10/25/2023 GENERAL: NAD, alert and oriented. SKIN: Unremarkable, no rash or skin lesions. HEAD: Normocephalic. OA flexed sidebent right, rotated left. NECK: Supple, C5 extended, rotated and sidebent right. EXTREMITIES: Normal, no deformities, no skin discoloration, no edema. NEURO: Awake, alert, normal gait, no involuntary motions. MUSCULOSKELETAL: - T7 flexed, rotated and sidebent left. - Left rib 6, posterior and inhaled. - Right serratus, tender point. - Right innominate anteriorly rotated. - Sacrum flexed, sidebent right and rotated left. - L5 flexed, rotated and sidebent right. - Hypertonicity in right teres minor and major and infraspinatus. ASSESSMENT & PLAN Rib pain on left side (primary encounter diagnosis) Chronic right shoulder pain Chronic right si joint pain Somatic dysfunction of head region Somatic dysfunction of cervical region Somatic dysfunction of thoracic region Somatic dysfunction of lumbar region Somatic dysfunction of sacral region Somatic dysfunction of pelvis region Somatic dysfunction of rib Somatic dysfunction of upper extremity Orders Placed This Encounter Osteopathic manipulative treatment (OMT) Order Comments: This order was created via procedure documentation Patient presents for follow-up. Previously noted right ischial bursitis is much improved after corticosteroid injections. Presently, reporting acute pain in the left lateral rib cage consistent with a counterstrain tender point, as well as waxing and waning chronic pain in the posterior aspect of the right shoulder, musculoskeletal in nature. Her chronic right SI joint pain is also present, though mild at this time. Somatic dysfunction correlating with her symptoms was identified on exam today. OMT was performed today to improve function and reduce symptoms with good effect. See procedure note below. Return in about 6 weeks (around 08/12/2024). 30 minutes were spent on the date of service was dedicated to preparing to see the patient, [id number] patient care, completing clinical documentation, obtaining and/or reviewing separately obtained history, performing a medically appropriate examination, counseling and educating the patient/family/caregiver, and time excludes procedure OMT . This note was partially generated using voice recognition software as well as an AI scribe. It has been reviewed for typographical errors, however some may remain. Any questions regarding meaning or word use should be directed to the author. Tanika Alves DO 9:46 AM 07/01/2024 Procedure Osteopathic manipulative treatment (OMT) Time/Date:07/01/2024 9:47 AM Informed Consent Consent Obtained: Verbal [place] Protocol A moment to CARE was completed. SIGN IN Special Equipment: N/A Patient/Surrogate Stated/Verified: Patient name, Date of and Intended procedure TIME OUT Consent documented and matches the intended procedure. Consent Obtained:Verbal Body Regions: Head, Cervical, Thoracic, Ribs, Lumbar, Sacrum, Pelvis and Upper Extremities Head Technique: balanced ligamentous tension Cervical Technique: balanced ligamentous tension Thoracic Technique: facilitated positional release Ribs Technique: counterstrain and still technique Lumbar Technique: myofascial release Sacrum Technique: myofascial release Pelvis Technique: myofascial release Upper Extremeties Technique: soft tissue Number of Body Regions: 7- 8 Disposition: Osteopathic manipulation tolerated well, reports subjective and objective improvement, improvement in range of motion and mechanics, instructed to increase hydration for the next 24 hours and instructed to follow up if symptoms worsen or fail to improve documented in this encounter [facility] 07-01-2024 Instructions aTnika Alves DO - 07/01/2024 9:43 AM EDT Please note the following after treatment with Osteopathic Manipulative Treatment: 1. General aching can occur after manipulative treatment for 1-3 days. You may feel nauseous or unwell for a few hours after the treatment, please call if these symptoms persist for more than 24 hours. 2. Please drink an additional 8-16 ounces of water today. This will help reduce the chance of side effects. 3. Please do not engage in heavy lifting or other strenuous activity for 2 days. 4. Please call if you experience new numbness, weakness, or strong or sharp pain. This is not expected after manipulative treatment and should be evaluated. 5. Please minimize sugar, alcohol, and caffeine for the next 24 hours. Please eat a low-protein meal tonight to reduce nitrogen load on your kidneys. 6. Ensure you are getting adequate sleep; sleep is the time when your body does most of its healing. As a general rule, 7 hours of sleep per night is usually adequate. If you have any further questions or would like clarification on the above instructions, please call our office at [phone]. A message will be left with our physician staff and we will return your phone call as soon as possible. Please leave a current phone number to reach you back. If you need to cancel an appointment, it is important to make our office aware 24-48 hours before cancelling, for us to reschedule that appointment for you. You can call our appointment line at [phone] and press option number 1 to leave a message. Please leave a current phone number to reach you back. documented in this encounter [facility] 06-25-2024 Radiology Diagnostic study note [facility] Services [address] [place] [address] [id number] Breast Limited Unilateral MR#: [id number] Acct: [id number] Name: MARGOT RITTER Rep #: [id number] : 1970 F 53 From: Malaika Quiros MD PCP: Dr. Ama Hamilton MD Status: R EG CLI Study:Breast Limited Unilateral Date of Exam: 06/25/24 Exam# [id number] Ordering Dr: Daysi Hamilton MD EXAM: DIAG MAMM W/CAD, BILAT; BREAST LIMITED UNILATERAL; BILAT BRST ALPHONSE STAND ALONE 06/25/2024 CLINICAL HISTORY: F, Age 53 y/o , LEFT AXILLARY PAIN; LEXT AXILLARY PAIN; PAIN TECHNIQUE: Bilateral Diagnostic digital breast tomosynthesis with 2D and 3D images. Computer aided detection. Also, targeted left breast ultrasound was performed. COMPARISON: Prior exam(s) dated 08/15/2023, 08/03/2022. FINDINGS: MAMMOGRAM: TISSUE DENSITY: The breast tissue is heterogenously dense, which may obscure small masses. The mammogram demonstrates that the patient has dense breasts. Supplemental screening with whole breast ultrasound or MRI may be considered for further evaluation. Bilateral Breast Mammographic Findings: The patient presents with left axillary in the upper outer quadrant breast pain. On the present examination, there are no mammographic abnormalities in the upper-outer left breast and left axilla to account for the patient's pain. Otherwise, there are no suspicious masses, grouped calcifications or architectural distortions in either breast. ULTRASOUND: Targeted ultrasound performed of the left upper outer quadrant and left axilla demonstrate no suspicious sonographic findings. US/Breast Limited Unilateral IMPRESSION: 1. There are no suspicious mammographic or sonographic findings in the area of patient's reported pain in the left breast and left axilla. Clinical management is recommended for the pain. 2. There is no evidence of malignancy in either breast. Right Breast: BIRADS 1 NEGATIVE. Left Breast: BIRADS 1 NEGATIVE. OVERALL FINAL ASSESSMENT: BIRADS 1 NEGATIVE. RECOMMENDATION: Routine annual follow-up in 1 Year A letter with findings and recommendations will be mailed to the patient. Reading Location: [facility] CC: Dr. Ama Hamilton MD ~ Auto Bench Mechanic: Signed [facility] 05-28-2024 History of Present illness Narrative Images from the original note were not included. DEPARTMENT OF ORTHOPAEDICS May 28, 2024 CC: right hip follow up HPI: Patient returns for reevaluation of her right hip. She has had significant relief from the ischial bursa injection. She does have some additional medial complaints just medial to the ischial bursa on the ischium otherwise she is very happy with her improvement. Denies any interim trauma. She would like to return to [employer]. PAIN EVALUATION 05/27/2024195205/28/2024 0808 Pain Level: 1 -- Pain Location: Buttocks-Right Hip-Right Description: Dull -- Duration Units: Months -- Frequency: Intermittent -- Intervention/Comfort measure: Reposition -- Past Medical History: PAST MEDICAL HISTORY Diagnosis Date Goiter IBS (irritable bowel syndrome) POTS (postural orthostatic tachycardia syndrome) Raynaud's phenomenon Family History: FAMILY HISTORY Problem Relation Age of Onset other (htn) Father other (htn) Mother other (DM) Mother other (CLL) Maternal Aunt Ischemic Heart Disease Maternal Grandfather other (HOCM) Maternal Aunt Social History: Medications: meloxicam (MOBIC) 15 mg tablet Take 1 tablet by mouth once daily. Estradiol (ZANDER) 0.0375 mg/24 hr Apply 1 Patch as directed two times a week. Biocidin Advanced Formula ([employer]) Take 5 Drops by mouth three times daily. A-EB/H6 (Bright White Formulas) Take 1-2 drops daily, increase to 10 drops per day as tolerated. 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 TherBiotic Complete 120 Ct. (Klaire/Prothera) Take 1 capsule by mouth once daily. Vitamin D3 5000 U (Pure Encapsulations) Take 1 capsule by mouth daily with food. melatonin 1 mg tablet Take 1 mg by mouth daily at bedtime. MULTIVIT-MINERALS/FERROUS FUM (MULTI VITAMIN ORAL) Take by mouth once daily. ERGOCALCIFEROL, VITAMIN D2, (VITAMIN D ORAL) Take 1,000 Units by mouth once daily. VITAMIN B COMPLEX (B COMPLEX ORAL) Take 2 tablets by mouth once daily. oseltamivir (TAMIFLU) 75 mg capsule Take 1 capsule by mouth two times a day for 5 days. Allergies: ALLERGIES Allergen Reactions Sulfamethoxazole-Tr* Unknown Aleve [Naproxen] Hives Bactrim [Sulfametho* Other: See Comments Swollen joints Lactose Intolerance* Other: See Comments Gastric problems, swelling of lymph nodes Midodrine Rash Penicillins Unknown Childhood reaction. Physical Exam: Musculoskeletal Exam: Gait normal, Posture: erect and normal. Exam: Right Left Single Leg Trendelenburg Negative Negative Hip flexion 110 110 IR 20 20 ER 60 60 Anterior impingement negative negative Dynamic labral stress negative negative BERLIN negative negative Posterior Impingement negative negative DHIRAJ negative negative Strength Right Left Supine HF 5/5 5/5 Upright HF 5/5 5/5 Adduction 5/5 5/5 Abduction 5/5 5/5 Tenderness with Palpation: Right Left Greater Troch Positive Negative Gluteus Medius Negative Negative Piriformis Negative Negative She has not no tenderness on the ischium. She has 5/5 strength with resisted knee flexion at 90 and 45 degrees. She does have reproducible pain when she fires her hamstring in full extension. She has mild pain just medial to the hamstring insertion. Review of Systems: GENERAL: No weight loss, malaise or fevers MUSCULOSKELETAL: See HPI Imaging: Assessment/Plan: Improved right ischial bursitis Plan for the patient reviewed. Patient dropped off her MRI to our office which I have not seen yet. I will need to do this. This was done over a year ago. She has had very good relief from the injection. Will continue to monitor the response and reassess in 2 months. If her symptoms recur we would likely repeat MRI and possibly consider ultrasound with focused depending on what I see on her imaging. This could include proximal hamstring insertion this can include ischiofemoral space. This could include sciatic nerve. She voiced understanding agreement with the plan. All questions answered today. Sarah Wynn MD This note was partially generated using BeehiveID voice recognition system, and there may be some incorrect words, spellings, and punctuation that were not noted in checking the note before saving. Medical Decision Making: Medical Decision Making Level: 1 - N/A documented in this encounter [facility] 05-28-2024 Note HNO ID: [id number] Author: SARAH WYNN MD Service: ? Author Type: Physician Type: Progress Notes Filed: 05/28/2024 08:22 Note Text: DEPARTMENT OF ORTHOPAEDICS May 28, 2024 CC: right hip follow up HPI: Patient returns for reevaluation of her right hip. She has had significant relief from the ischial bursa injection. She does have some additional medial complaints just medial to the ischial bursa on the ischium otherwise she is very happy with her improvement. Denies any interim trauma. She would like to return to [employer]. PAIN EVALUATION 05/27/2024195205/28/2024 0808 Pain Level: 1 -- Pain Location: Buttocks-Right Hip-Right Description: Dull -- Duration Units: Months -- Frequency: Intermittent -- Intervention/Comfort measure: Reposition -- Past Medical History: PAST MEDICAL HISTORY Diagnosis Date Goiter IBS (irritable bowel syndrome) POTS (postural orthostatic tachycardia syndrome) Raynaud's phenomenon Family History: FAMILY HISTORY Problem Relation Age of Onset other (htn) Father other (htn) Mother other (DM) Mother other (CLL) Maternal Aunt Ischemic Heart Disease Maternal Grandfather other (HOCM) Maternal Aunt Social History: Medications: meloxicam (MOBIC) 15 mg tablet Take 1 tablet by mouth once daily. Estradiol (ZANDER) 0.0375 mg/24 hr Apply 1 Patch as directed two times a week. Biocidin Advanced Formula ([employer]) Take 5 Drops by mouth three times daily. A-EB/H6 (Bright White Formulas) Take 1-2 drops daily, increase to 10 drops per day as tolerated. 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 TherBiotic Complete 120 Ct[address] (Klaire/Prothera) Take 1 capsule by mouth once daily. Vitamin D3 5000 U (Pure Encapsulations) Take 1 capsule by mouth daily with food. melatonin 1 mg tablet Take 1 mg by mouth daily at bedtime. MULTIVIT-MINERALS/FERROUS FUM (MULTI VITAMIN ORAL) Take by mouth once daily. ERGOCALCIFEROL, VITAMIN D2, (VITAMIN D ORAL) Take 1,000 Units by mouth once daily. VITAMIN B COMPLEX (B COMPLEX ORAL) Take 2 tablets by mouth once daily. oseltamivir (TAMIFLU) 75 mg capsule Take 1 capsule by mouth two times a day for 5 days. Allergies: ALLERGIES Allergen Reactions Sulfamethoxazole-Tr* Unknown Aleve [Naproxen] Hives Bactrim [Sulfametho* Other: See Comments Swollen joints Lactose Intolerance* Other: See Comments Gastric problems, swelling of lymph nodes Midodrine Rash Penicillins Unknown Childhood reaction. Physical Exam: Musculoskeletal Exam: Gait normal, Posture: erect and normal. Exam: Right Left Single Leg Trendelenburg Negative Negative Hip flexion 110 110 IR 20 20 ER 60 60 Anterior impingement negative negative Dynamic labral stress negative negative BERLIN negative negative Posterior Impingement negative negative DHIRAJ negative negative Strength Right Left Supine HF 5/5 5/5 Upright HF 5/5 5/5 Adduction 5/5 5/5 Abduction 5/5 5/5 Tenderness with Palpation: Right Left Greater Troch Positive Negative Gluteus Medius Negative Negative Piriformis Negative Negative She has not no tenderness on the ischium. She has 5/5 strength with resisted knee flexion at 90 and 45 degrees. She does have reproducible pain when she fires her hamstring in full extension. She has mild pain just medial to the hamstring insertion. Review of Systems: GENERAL: No weight loss, malaise or fevers MUSCULOSKELETAL: See HPI Imaging: Assessment/Plan: Improved right ischial bursitis Plan for the patient reviewed. Patient dropped off her MRI to our office which I have not seen yet. I will need to do this. This was done over a year ago. She has had very good relief from the injection. Will continue to monitor the response and reassess in 2 months. If her symptoms recur we would likely repeat MRI and possibly consider ultrasound with focused depending on what I see on her imaging. This could include proximal hamstring insertion this can include ischiofemoral space. This could include sciatic nerve. She voiced understanding agreement with the plan. All questions answered today. Sarah Wynn MD This note was partially generated using BeehiveID voice recognition system, and there may be some incorrect words, spellings, and punctuation that were not noted in checking the note before saving. Medical Decision Making: Medical Decision Making Level: 1 - N/A [facility] 05-27-2024 Note HNO ID: [id number] Author: ROSAMARIA KINCAID PA-C Service: ? Author Type: Physician Profile Grinder Technician Type: Progress Notes Filed: 05/27/2024 12:10 Note Text: This note was created using [email or web address]. Subjective Margot Hu is a 53 year old female. Patient is a 53-year-old female who complains of fever, chills, body aches with mild congestion and slight cough that she has been experiencing for the past 1 day. Patient also reports overall fatigue and weakness. Patient states that she did note an episode of elevated heart rate last evening without palpitations or chest pain. Patient states that she does have a history of POTS. Patient also reports chest wall pain to her left axilla. Patient denies accident or injury and states she has noted no redness or swelling to the area. Patient reports no dyspnea or shortness of breath. Patient does exercise daily. Flu Like Symptoms Associated symptoms include chills, fatigue, a fever and myalgias. Review of Systems Constitutional: Positive for chills, fatigue and fever. Musculoskeletal: Positive for myalgias. All other systems reviewed and are negative. Objective BP 124/82 Pulse 73 Temp 36.6 ?C (97.8 ?F) (Tympanic) Resp 18 Wt 72.8 kg (160 lb 7.9 oz) LMP 10/25/2023 (Exact Date) SpO2 98% BMI 22.38 kg/m? Physical Exam Vitals and nursing note reviewed. Constitutional: Appearance: Normal appearance. She is normal weight. Comments: Patient appears relaxed and comfortable in the exam room chair. Patient demonstrates a high degree of physical fitness. HENT: Head: Normocephalic and atraumatic. Right Ear: Tympanic membrane, ear canal and external ear normal. Left Ear: Tympanic membrane, ear canal and external ear normal. Nose: Nose normal. Mouth/Throat: Mouth: Mucous membranes are moist. Pharynx: Oropharynx is clear. Eyes: Extraocular Movements: Extraocular movements intact. Conjunctiva/sclera: Conjunctivae normal. Pupils: Pupils are equal, round, and reactive to light. Cardiovascular: Rate and Rhythm: Normal rate and regular rhythm. Pulses: Normal pulses. Heart sounds: Normal heart sounds. Pulmonary: Effort: Pulmonary effort is normal. Breath sounds: Normal breath sounds. Musculoskeletal: General: Normal range of motion. Cervical back: Normal range of motion and neck supple. Skin: General: Skin is warm and dry. Capillary Refill: Capillary refill takes less than 2 seconds. Neurological: General: No focal deficit present. Mental Status: She is alert and oriented to person, place, and time. Psychiatric: Mood and Affect: Mood normal. Behavior: Behavior normal. Thought Content: Thought content normal. Judgment: Judgment normal. Assessment and Plan Unremarkable physical exam findings as noted above. Influenza A/B/SARS-CoV-2/RSV PCR was ordered. Patient's heart rate was noted to be 73 bpm with blood pressure 124/82. Outpatient CBC, CMP, CRP, ESR and TSH/T4 were ordered. Patient was advised that she will be contacted once the above results are received. Patient states that she does have an appointment already scheduled to see her primary care physician next week. Patient was very clearly advised to report to an emergency department if she notes any worsening tachycardia or if she develops associated palpitations, chest pain or other concerning symptoms. Patient was otherwise advised that it is highly probable that she is developing influenza and she was provided with a prescription for Tamiflu 75 mg. Additional supportive care was discussed and the patient verbalizes excellent understanding of same. CLINICAL IMPRESSION: Influenza; History of POTS ASSESSMENT/PLAN: 1. Influenza - ICD9: 487.1, ICD10: J11.1 (primary diagnosis) - COVID AND INFLUENZA A/B AND RSV PCR, ROUTINE - OSELTAMIVIR 75 MG CAPSULE 2. POTS (postural orthostatic tachycardia syndrome) - ICD9: 427.89, ICD10: G90.A - COMPLETE BLOOD COUNT AND DIFFERENTIAL - COMPREHENSIVE METABOLIC PANEL - SEDIMENTATION RATE, WESTERGREN - C-REACTIVE PROTEIN - TSH W/REFLEX FT4 Rosamaria Kincaid PA-C [facility] 05-27-2024 History of Present illness Narrative This note was created using NoteWriter. Subjective Margot Hu is a 53 year old female. Patient is a 53-year-old female who complains of fever, chills, body aches with mild congestion and slight cough that she has been experiencing for the past 1 day. Patient also reports overall fatigue and weakness. Patient states that she did note an episode of elevated heart rate last evening without palpitations or chest pain. Patient states that she does have a history of POTS. Patient also reports chest wall pain to her left axilla. Patient denies accident or injury and states she has noted no redness or swelling to the area. Patient reports no dyspnea or shortness of breath. Patient does exercise daily. Flu Like Symptoms Associated symptoms include chills, fatigue, a fever and myalgias. Review of Systems Constitutional: Positive for chills, fatigue and fever. Musculoskeletal: Positive for myalgias. All other systems reviewed and are negative. Objective BP 124/82 Pulse 73 Temp 36.6 C (97.8 F) (Tympanic) Resp 18 Wt 72.8 kg (160 lb 7.9 oz) LMP 10/25/2023 (Exact Date) SpO2 98% BMI 22.38 kg/m Physical Exam Vitals and nursing note reviewed. Constitutional: Appearance: Normal appearance. She is normal weight. Comments: Patient appears relaxed and comfortable in the exam room chair. Patient demonstrates a high degree of physical fitness. HENT: Head: Normocephalic and atraumatic. Right Ear: Tympanic membrane, ear canal and external ear normal. Left Ear: Tympanic membrane, ear canal and external ear normal. Nose: Nose normal. Mouth/Throat: Mouth: Mucous membranes are moist. Pharynx: Oropharynx is clear. Eyes: Extraocular Movements: Extraocular movements intact. Conjunctiva/sclera: Conjunctivae normal. Pupils: Pupils are equal, round, and reactive to light. Cardiovascular: Rate and Rhythm: Normal rate and regular rhythm. Pulses: Normal pulses. Heart sounds: Normal heart sounds. Pulmonary: Effort: Pulmonary effort is normal. Breath sounds: Normal breath sounds. Musculoskeletal: General: Normal range of motion. Cervical back: Normal range of motion and neck supple. Skin: General: Skin is warm and dry. Capillary Refill: Capillary refill takes less than 2 seconds. Neurological: General: No focal deficit present. Mental Status: She is alert and oriented to person, place, and time. Psychiatric: Mood and Affect: Mood normal. Behavior: Behavior normal. Thought Content: Thought content normal. Judgment: Judgment normal. Assessment and Plan Unremarkable physical exam findings as noted above. Influenza A/B/SARS-CoV-2/RSV PCR was ordered. Patient's heart rate was noted to be 73 bpm with blood pressure 124/82. Outpatient CBC, CMP, CRP, ESR and TSH/T4 were ordered. Patient was advised that she will be contacted once the above results are received. Patient states that she does have an appointment already scheduled to see her primary care physician next week. Patient was very clearly advised to report to an emergency department if she notes any worsening tachycardia or if she develops associated palpitations, chest pain or other concerning symptoms. Patient was otherwise advised that it is highly probable that she is developing influenza and she was provided with a prescription for Tamiflu 75 mg. Additional supportive care was discussed and the patient verbalizes excellent understanding of same. CLINICAL IMPRESSION: Influenza; History of POTS ASSESSMENT/PLAN: 1. Influenza - ICD9: 487.1, ICD10: J11.1 (primary diagnosis) - COVID & INFLUENZA A/B & RSV PCR, ROUTINE - OSELTAMIVIR 75 MG CAPSULE 2. POTS (postural orthostatic tachycardia syndrome) - ICD9: 427.89, ICD10: G90.A - COMPLETE BLOOD COUNT AND DIFFERENTIAL - COMPREHENSIVE METABOLIC PANEL - SEDIMENTATION RATE, WESTERGREN - C-REACTIVE PROTEIN - TSH W/REFLEX FT4 Rosamaria Kincaid PA-C documented in this encounter [facility] 05-27-2024 Note SARS-COV-2 (AGENT OF COVID-19) RNA: Not detected INFLUENZA A RNA: Not detected INFLUENZA B RNA: Not detected RESPIRATORY SYNCYTIAL VIRUS (RSV) RNA: Not detected [facility] Comment on above: Performed By: #### 9 [id number] ####[facility] [id number] [address] [place] 04-17-2024 Telephone encounter Note PT scheduled for MSK US INJ on 05/06/24 at 8:15 AM at [facility]. [facility] 04-17-2024 Miscellaneous Notes PT scheduled for MSK US INJ on 05/06/24 at 8:15 AM at [facility]. Visit Type: INJ ONLY 1 Visit Length: 60 MINUTES Order Name/Protocol: US ASP/INJ HIP JT/BURSA RT; RT ISCHIAL BURSA INJ. Preferred Provider: N/A Comment: N/A Location: [facility] Slot held: N/A documented in this encounter [facility] 04-17-2024 Telephone encounter Note Visit Type: INJ ONLY 1 Visit Length: 60 MINUTES Order Name/Protocol: US ASP/INJ HIP JT/BURSA RT; RT ISCHIAL BURSA INJ. Preferred Provider: N/A Comment: N/A Location: [facility] Slot held: N/A [facility] 04-16-2024 Note HNO ID: [id number] Author: SARAH WYNN MD Service: ? Author Type: Physician Type: Progress Notes Filed: 04/16/2024 14:58 Note Text: I have reviewed the history and physical obtained by my resident or fellow. HPI explored in detail with the patient. Pt was seen by me and arango findings were confirmed. I agree with the findings as documented. I personally participated the patient's assessment and treatment recommendations. Sarah Wynn MD [facility] 04-16-2024 History of Present illness Narrative I have reviewed the history and physical obtained by my resident or fellow. HPI explored in detail with the patient. Pt was seen by me and arango findings were confirmed. I agree with the findings as documented. I personally participated the patient's assessment and treatment recommendations. Sarah Wynn MD Images from the original note were not included. DEPARTMENT OF ORTHOPAEDICS Chief Complaint: Right hip pain HISTORY OF PRESENT ILLNESS: This is a pleasant 53 year old female, who presents today with a chief complaint of right hip pain. Injury/ Trauma: Denies Patient with a history of bilateral Anton medius abductor repairs done in 2008 by outside surgeon Ngoc. She overall did well from this but does have periodic lateral hip pain that she takes anti-inflammatories for. For the past 3 months since December she has had significant ischial pain which has not improved. Her primary care's started her on a oral prednisone which helped transiently. Anti-inflammatories helped somewhat. Pain is worst when seated or when riding the bike. She states she does have some pain when having resistance to her hamstrings but it is mostly pressure related. She does use a doughnut to help offload the area when seated. She has been doing therapy and some home exercises. PAIN EVALUATION 04/14/2024 0940 04/16/2024 1405 Pain Level: 3 3 Pain Location: Buttocks-Right Leg-Right Description: Aching;Burning;Cramping Sharp Duration Amount of Time: -- 3 Duration Units: Months Months Frequency: Intermittent Intermittent Intervention/Comfort measure: Medication;Reposition;Exercise;Pil low support Medication;Positioning ice Pain location: posterior Duration of pain/ symptoms: 3 months Frequency: intermittent Intensity: moderate Quality: dull She Reports nocturnal pain. She denies numbness, tingling, or electric shocks. She denies popping, clicking, catching, locking, grinding, instability, buckling, or giving way. 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 Activity level: Hiking, biking, walking PAST MEDICAL HISTORY Diagnosis Date Goiter IBS (irritable bowel syndrome) POTS (postural orthostatic tachycardia syndrome) Raynaud's phenomenon PAST SURGICAL HISTORY Procedure Laterality Date APPENDECTOMY ARTHROSCOPY KNEE DIAGNOSTIC W/WO SYNOVIAL BX SPX Left 2003 Arthroscopy, knee DELIVERY ONLY 1996 ELBOW SURGERY HX Left 2016 excission mass left elbow OOPHORECTOMY PARTIAL/TOTAL UNI/BI right ovary 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 Biocidin Advanced Formula ([employer]) Take 5 Drops by mouth three times daily. A-EB/H6 (Bright [employer] Formulas) Take 1-2 drops daily, increase to 10 drops per day as tolerated. 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 120 capsule [address] TherBiotic [address] (Klaire/Prothera) Take 1 capsule by mouth once daily. Vitamin D3 5000 U (Pure Encapsulations) Take 1 capsule by mouth daily with food. melatonin 1 mg tablet Take 1 mg by mouth daily at bedtime. MULTIVIT-MINERALS/FERROUS FUM (MULTI VITAMIN ORAL) Take by mouth once daily. ERGOCALCIFEROL, VITAMIN D2, (VITAMIN D ORAL) Take 1,000 Units by mouth once daily. VITAMIN B COMPLEX (B COMPLEX ORAL) Take 2 tablets by mouth once daily. No current facility-administered medications for this visit. ALLERGIES Allergen Reactions Sulfamethoxazole-Tr* Unknown Aleve [Naproxen] Hives Bactrim [Sulfametho* Other: See Comments Swollen joints Lactose Intolerance* Other: See Comments Gastric problems, swelling of lymph nodes Midodrine Rash Penicillins Unknown Childhood reaction. FAMILY HISTORY Problem Relation Age of Onset other (htn) Father other (htn) Mother other (DM) Mother other (CLL) Maternal Aunt Ischemic Heart Disease Maternal Grandfather other (HOCM) Maternal Aunt Social History Tobacco Use Smoking status: Never Smokeless tobacco: Never Tobacco comments: No smoking in childhood or adult homes. Substance Use Topics Alcohol use: Yes Comment: Rarely. 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 Osseous and soft tissue structures within normal limits. Tonnis grade 2. X-Rays Reviewed and discussed. OTHER STUDIES: Patient brought with her outside MRI read but no images on the disc. Outside read states intact glute med repair with mild hamstring tendinosis PHYSICAL EXAM: LMP 10/25/2023 General: Appears stated age, well built, in no apparent distress. Psychiatric: Mood and affect appropriate. Alert and oriented x 3 without evidence of abnormal respiratory effort. Musculoskeletal Exam: Gait normal, Posture: erect and normal. Exam: Right Left Single Leg Trendelenburg Negative Negative Hip flexion 120 120 IR 25 25 ER 70 70 Anterior impingement positive negative Dynamic labral stress negative negative BERLIN negative negative Posterior Impingement positive negative DHIRAJ negative negative Strength Right Left Supine HF 5/5 5/5 Upright HF 5/5 5/5 Adduction 5/5 5/5 Abduction 5/5 5/5 No pain with resisted hamstring testing either with knee flexion or hip extension. 5/5 str Tenderness with Palpation: Right Left Greater Troch Positive Negative Gluteus Medius Positive Negative Piriformis Positive Negative PROCEDURE: na IMPRESSION: 53-year-old female with ischial tuberosity bursitis, some component of hamstring tendinitis but pain mostly from sitting and less so from resisted hamstring testing. Patient has an outside MRI which unfortunately is unable to be reviewed from a year ago which describes hamstring tendinosis. She has been doing therapy unsuccessfully and has tried both OTC medications and oral prednisone with only transient success. We will refer her for an ultrasound-guided injection and see her response after. She will continue offloading the area as able and avoiding exacerbating activities. She will work on getting the disc of her images. Ordered for 15mg meloxicam. PLAN: 1. Medication: continue, ordered for 15mg meloxicam. 2. Test(s)/Imaging/Referral(s): us guided ischial bursa injection. 3. Intervention: .us guided ischial bursa injection. 4. Follow-up: PRN. Christa Ashton MD Sports Medicine/Orthopaedic Surgery documented in this encounter [facility] 04-16-2024 Note HNO ID: [id number] Author: CHRISTA ASHTON MD Service: ? Author Type: Fellow Type: Progress Notes Filed: 04/16/2024 14:58 Note Text: DEPARTMENT OF ORTHOPAEDICS Chief Complaint: Right hip pain HISTORY OF PRESENT ILLNESS: This is a pleasant 53 year old female, who presents today with a chief complaint of right hip pain. Injury/ Trauma: Denies Patient with a history of bilateral Anton medius abductor repairs done in 2008 by outside surgeon Ngoc. She overall did well from this but does have periodic lateral hip pain that she takes anti-inflammatories for. For the past 3 months since December she has had significant ischial pain which has not improved. Her primary care's started her on a oral prednisone which helped transiently. Anti-inflammatories helped somewhat. Pain is worst when seated or when riding the bike. She states she does have some pain when having resistance to her hamstrings but it is mostly pressure related. She does use a doughnut to help offload the area when seated. She has been doing therapy and some home exercises. PAIN EVALUATION 04/14/2024 0940 04/16/2024 1405 Pain Level: 3 3 Pain Location: Buttocks-Right Leg-Right Description: Aching;Burning;Cramping Sharp Duration Amount of Time: -- 3 Duration Units: Months Months Frequency: Intermittent Intermittent Intervention/Comfort measure: Medication;Reposition;Exercise;Pil low support Medication;Positioning ice Pain location: posterior Duration of pain/ symptoms: 3 months Frequency: intermittent Intensity: moderate Quality: dull She Reports nocturnal pain. She denies numbness, tingling, or electric shocks. She denies popping, clicking, catching, locking, grinding, instability, buckling, or giving way. 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 Activity level: Hiking, biking, walking PAST MEDICAL HISTORY Diagnosis Date Goiter IBS (irritable bowel syndrome) POTS (postural orthostatic tachycardia syndrome) Raynaud's phenomenon PAST SURGICAL HISTORY Procedure Laterality Date APPENDECTOMY ARTHROSCOPY KNEE DIAGNOSTIC W/WO SYNOVIAL BX SPX Left 2003 Arthroscopy, knee DELIVERY ONLY 1995 ELBOW SURGERY HX Left 2015 excission mass left elbow OOPHORECTOMY PARTIAL/TOTAL UNI/BI right ovary 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 Biocidin Advanced Formula ([employer]) Take 5 Drops by mouth three times daily. A-EB/H6 (Bright White Formulas) Take 1-2 drops daily, increase to 10 drops per day as tolerated. 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 120 capsule [address] TherBiotic [address] (Klaire/Prothera) Take 1 capsule by mouth once daily. Vitamin D3 5000 U (Pure Encapsulations) Take 1 capsule by mouth daily with food. melatonin 1 mg tablet Take 1 mg by mouth daily at bedtime. MULTIVIT-MINERALS/FERROUS FUM (MULTI VITAMIN ORAL) Take by mouth once daily. ERGOCALCIFEROL, VITAMIN D2, (VITAMIN D ORAL) Take 1,000 Units by mouth once daily. VITAMIN B COMPLEX (B COMPLEX ORAL) Take 2 tablets by mouth once daily. No current facility-administered medications for this visit. ALLERGIES Allergen Reactions Sulfamethoxazole-Tr* Unknown Aleve [Naproxen] Hives Bactrim [Sulfametho* Other: See Comments Swollen joints Lactose Intolerance* Other: See Comments Gastric problems, swelling of lymph nodes Midodrine Rash Penicillins Unknown Childhood reaction. FAMILY HISTORY Problem Relation Age of Onset other (htn) Father other (htn) Mother other (DM) Mother other (CLL) Maternal Aunt Ischemic Heart Disease Maternal Grandfather other (HOCM) Maternal Aunt Social History Tobacco Use Smoking status: Never Smokeless tobacco: Never Tobacco comments: No smoking in childhood or adult homes. Substance Use Topics Alcohol use: Yes Comment: Rarely. Drug use: No REVIEW OF SYSTEMS: GENERAL: No weight loss, malaise or fevers HEENT: Negative for frequent or significant headaches, No changes in hearing or vision, no nose bleeds or other nasal problems NECK: Negative for lumps, goiter, pain and significant neck swelling RESPIRATORY: Negative for cough, hem (more content not included)... [facility] 04-16-2024 History of Present illness Narrative Radiology Service Progress Note PATIENT NAME: Margot Hu DATE OF SERVICE: April 16, 2024 TIME: 1:59 PM PATIENT IDENTITY VERIFICATION COMPLETED USING TWO (2) IDENTIFIERS: Name and Date of confirmed by patient verbally. FALL SCREENING: Has the patient had 2 falls in the last year or 1 fall with injury or currently using an Ambulatory Assistive Device (Walker, Cane, Wheelchair, Crutches, etc.)? No PATIENT GENDER DATA: Assigned female at . status: : No status: NO. PATIENT RELEVANT IMPLANT DATA REVIEWED: Not Applicable PATIENT PRESENTS WITH AN IMPLANTABLE OR ATTACHED HAND PAINTER: No RADIOLOGY DEPARTMENT: General X-ray: Exam(s) Completed: Pelvis X-Ray: Pelvis with Hip Right PERIPHERAL IV DATA: Not applicable SIGNED BY: RT Aletha(Maximilian) April 16, 2024 1:59 PM documented in this encounter [facility] 04-16-2024 Note HNO ID: [id number] Author: ANTONIO PAN RT(Maximilian) Service: ? Author Type: Morning Show [employer] Producer Type: Progress Notes Filed: 04/16/2024 13:59 Note Text: Radiology Service Progress Note PATIENT NAME: Margot Hu DATE OF SERVICE: April 16, 2024 TIME: 1:59 PM PATIENT IDENTITY VERIFICATION COMPLETED USING TWO (2) IDENTIFIERS: Name and Date of confirmed by patient verbally. FALL SCREENING: Has the patient had 2 falls in the last year or 1 fall with injury or currently using an Ambulatory Assistive Device (Walker, Cane, Wheelchair, Crutches, etc.)? No PATIENT GENDER DATA: Assigned female at . status: : No status: NO. PATIENT RELEVANT IMPLANT DATA REVIEWED: Not Applicable PATIENT PRESENTS WITH AN IMPLANTABLE OR ATTACHED HAND PAINTER: No RADIOLOGY DEPARTMENT: General X-ray: Exam(s) Completed: Pelvis X-Ray: Pelvis with Hip Right PERIPHERAL IV DATA: Not applicable SIGNED BY: RT Aletha(R) April 16, 2024 1:59 PM [facility] 04-09-2024 Instructions Tanika Alves DO - 04/09/2024 4:26 PM EST Please note the following after treatment with Osteopathic Manipulative Treatment: 1. General aching can occur after manipulative treatment for 1-3 days. You may feel nauseous or unwell for a few hours after the treatment, please call if these symptoms persist for more than 24 hours. 2. Please drink an additional 8-16 ounces of water today. This will help reduce the chance of side effects. 3. Please do not engage in heavy lifting or other strenuous activity for 2 days. 4. Please call if you experience new numbness, weakness, or strong or sharp pain. This is not expected after manipulative treatment and should be evaluated. 5. Please minimize sugar, alcohol, and caffeine for the next 24 hours. Please eat a low-protein meal tonight to reduce nitrogen load on your kidneys. 6. Ensure you are getting adequate sleep; sleep is the time when your body does most of its healing. As a general rule, 7 hours of sleep per night is usually adequate. If you have any further questions or would like clarification on the above instructions, please call our office at [phone]. A message will be left with our physician staff and we will return your phone call as soon as possible. Please leave a current phone number to reach you back. If you need to cancel an appointment, it is important to make our office aware 24-48 hours before cancelling, for us to reschedule that appointment for you. You can call our appointment line at [phone] and press option number 1 to leave a message. Please leave a current phone number to reach you back. documented in this encounter [facility] 04-09-2024 Note HNO ID: [id number] Author: TANIKA ALVES DO Service: ? Author Type: Physician Type: Progress Notes Filed: 04/09/2024 17:09 Note Text: Osteopathic Neuromusculoskeletal Medicine Progress Note Name: Margot Hu Date of : 1970 PCP: Ama Hamilton MD Date of Exam: April 09, 2024 SUBJECTIVE Chief Complaint: This is Margot Hu, a 53 year old female who presents with Patient presents with: lschial bursitis of right side AMB ROOMING INTAKE FLOWSHEET DATA Pain Pain Level: 2 Description: Sharp, Burning Frequency: Continuous Intervention/Comfort measure: Reposition, Relaxation, Positioning History of Present Illness: Patient presents for follow-up. She reports that she is doing okay. She does continue to experience persistent and constant burning, often sharp, pain over the ischial tuberosity on the right side 2/2 known ischial bursitis; no significant improvement with OMT. She does have an appointment with Dr. Wynn next week and plans to discuss potentially getting a steroid injection into the bursa. Otherwise, she does not have any particular concerns today. The pain in the right fourth finger is significantly improved, occasionally achy at night. Medical, surgical, and family histories reviewed. Allergies and social history reviewed. Review of Systems Musculoskeletal: Positive for arthralgias and back pain. Negative for gait problem, joint swelling, myalgias, neck pain and neck stiffness. Neurological: Negative for dizziness, weakness, numbness and headaches. OBJECTIVE BP 112/72 Pulse 64 Temp (Src) 97.3 (Temporal) Wt 163 lb 9.3 oz (74.2kg) LMP 10/25/2023 Physical Exam Vitals and nursing note reviewed. Constitutional: General: She is not in acute distress. HENT: Head: Normocephalic and atraumatic. Pulmonary: Effort: Pulmonary effort is normal. Abdominal: General: There is no distension. Palpations: Abdomen is soft. Musculoskeletal: Cervical back: Neck supple. No pain with movement, spinous process tenderness or muscular tenderness. Decreased range of motion. Thoracic back: No spasms, tenderness or bony tenderness. Decreased range of motion. Lumbar back: No spasms, tenderness or bony tenderness. Decreased range of motion. Comments: Marked tenderness with boggy texture over the right ischial tuberosity Skin: General: Skin is warm and dry. Neurological: Mental Status: She is alert. Mental status is at baseline. Psychiatric: Mood and Affect: Mood normal. Somatic Dysfunction by Body Region: Head: OA flexed, side bent right rotated left Cervical: C4 flexed, side bent right rotated left Thoracic: T7 extended, rotated and side bent right Lumbar: L5 flexed rotated and sidebent right Sacral: Left on left torsion Pelvis: Right innominate anteriorly rotated Upper extremities: Right fourth DIP restricted on its own lateral aspect Lower extremities: Right hamstring hypertonicity; tension overlying the right ischial tuberosity ASSESSMENT AND PLAN Ischial bursitis of right side (primary encounter diagnosis) Finger pain, right Somatic dysfunction of head region Somatic dysfunction of cervical region Somatic dysfunction of thoracic region Somatic dysfunction of lumbar region Somatic dysfunction of sacral region Somatic dysfunction of pelvis region Somatic dysfunction of upper extremity Somatic dysfunction of lower extremity Orders Placed This Encounter Osteopathic manipulative treatment (OMT) Order Comments: This order was created via procedure documentation Patient presents for follow-up of right ischial bursitis and right SI joint pain. No significant improvement; she will be seeing Dr. Wynn soon and will be discussing possible corticosteroid injection. Right finger pain has significantly improved. Somatic dysfunction correlating with her symptoms was identified on exam today. The goal of OMT will specifically be to restore as much structure as possible to improve the efficacy of any corticosteroid injections are performed as well as to improve blood flow in and out of the area to promote healing. OMT was performed today to improve function and reduce symptoms with good effect. See procedure note below. Return in about 8 weeks (around 06/04/2024). >50% of time spent on the date of service was dedicated to preparing to see the patient, [id number] patient care, completing clinical documentation, obtaining and/or reviewing separately obtained history, performing a medically appropriate examination, counseling and educating the patient/family/caregiver, and time excludes procedure OMT . This note was partially generated using voice recognition software. It has been reviewed for typographical errors, however some may remain. Any questions regarding meaning or word use should be directed to the author. The patient was seen, evaluated, and treated with the cooper (more content not included)... [facility] 04-09-2024 History of Present illness Narrative Associated Order(s): Osteopathic manipulative treatment (OMT) Post-Procedure Diagnose(s): Ischial bursitis of right side; Finger pain, right; Somatic dysfunction of head region; Somatic dysfunction of cervical region; Somatic dysfunction of thoracic region; Somatic dysfunction of lumbar region; Somatic dysfunction of sacral region; Somatic dysfunction of pelvis region; Somatic dysfunction of upper extremity; Somatic dysfunction of lower extremity Images from the original note were not included. Osteopathic Neuromusculoskeletal Medicine Progress Note Name: Margot Hu Date of : 1970 PCP: Ama Hamilton MD Date of Exam: April 09, 2024 SUBJECTIVE Chief Complaint: This is Margot Hu, a 53 year old female who presents with Patient presents with: lschial bursitis of right side AMB ROOMING INTAKE FLOWSHEET DATA Pain Pain Level: 2 Description: Sharp, Burning Frequency: Continuous Intervention/Comfort measure: Reposition, Relaxation, Positioning History of Present Illness: Patient presents for follow-up. She reports that she is doing okay. She does continue to experience persistent and constant burning, often sharp, pain over the ischial tuberosity on the right side 2/2 known ischial bursitis; no significant improvement with OMT. She does have an appointment with Dr. Wynn next week and plans to discuss potentially getting a steroid injection into the bursa. Otherwise, she does not have any particular concerns today. The pain in the right fourth finger is significantly improved, occasionally achy at night. Medical, surgical, and family histories reviewed. Allergies and social history reviewed. Review of Systems Musculoskeletal: Positive for arthralgias and back pain. Negative for gait problem, joint swelling, myalgias, neck pain and neck stiffness. Neurological: Negative for dizziness, weakness, numbness and headaches. OBJECTIVE BP 112/72 Pulse 64 Temp (Src) 97.3 (Temporal) Wt 163 lb 9.3 oz (74.2kg) LMP 10/25/2023 Physical Exam Vitals and nursing note reviewed. Constitutional: General: She is not in acute distress. HENT: Head: Normocephalic and atraumatic. Pulmonary: Effort: Pulmonary effort is normal. Abdominal: General: There is no distension. Palpations: Abdomen is soft. Musculoskeletal: Cervical back: Neck supple. No pain with movement, spinous process tenderness or muscular tenderness. Decreased range of motion. Thoracic back: No spasms, tenderness or bony tenderness. Decreased range of motion. Lumbar back: No spasms, tenderness or bony tenderness. Decreased range of motion. Comments: Marked tenderness with boggy texture over the right ischial tuberosity Skin: General: Skin is warm and dry. Neurological: Mental Status: She is alert. Mental status is at baseline. Psychiatric: Mood and Affect: Mood normal. Somatic Dysfunction by Body Region: Head: OA flexed, side bent right rotated left Cervical: C4 flexed, side bent right rotated left Thoracic: T7 extended, rotated and side bent right Lumbar: L5 flexed rotated and sidebent right Sacral: Left on left torsion Pelvis: Right innominate anteriorly rotated Upper extremities: Right fourth DIP restricted on its own lateral aspect Lower extremities: Right hamstring hypertonicity; tension overlying the right ischial tuberosity ASSESSMENT & PLAN Ischial bursitis of right side (primary encounter diagnosis) Finger pain, right Somatic dysfunction of head region Somatic dysfunction of cervical region Somatic dysfunction of thoracic region Somatic dysfunction of lumbar region Somatic dysfunction of sacral region Somatic dysfunction of pelvis region Somatic dysfunction of upper extremity Somatic dysfunction of lower extremity Orders Placed This Encounter Osteopathic manipulative treatment (OMT) Order Comments: This order was created via procedure documentation Patient presents for follow-up of right ischial bursitis and right SI joint pain. No significant improvement; she will be seeing Dr. Wynn soon and will be discussing possible corticosteroid injection. Right finger pain has significantly improved. Somatic dysfunction correlating with her symptoms was identified on exam today. The goal of OMT will specifically be to restore as much structure as possible to improve the efficacy of any corticosteroid injections are performed as well as to improve blood flow in and out of the area to promote healing. OMT was performed today to improve function and reduce symptoms with good effect. See procedure note below. Return in about 8 weeks (around 06/04/2024). >50% of time spent on the date of service was dedicated to preparing to see the patient, [id number] patient care, completing clinical documentation, obtaining and/or reviewing separately obtained history, performing a medically appropriate examination, counseling and educating the patient/family/caregiver, and time excludes procedure OMT . This note was partially generated using voice recognition software. It has been reviewed for typographical errors, however some may remain. Any questions regarding meaning or word use should be directed to the author. The patient was seen, evaluated, and treated with the assistance of CAMI Alex. I was present for the entire visit and personally interviewed, examined, and treated the patient. The student was also present for the visit and assisted specifically with OMT in a learning role. Tanika Alves DO 4:01 PM 04/09/2024 Procedure Osteopathic manipulative treatment (OMT) Time/Date:04/09/2024 4:31 PM Informed Consent Consent Obtained: Verbal [place]worth Protocol A moment to CARE was completed. SIGN IN Special Equipment: N/A Patient/Surrogate Stated/Verified: Patient name, Date of and Intended procedure TIME OUT Intended patient and procedure match the source document(s). Consent documented and matches the intended procedure. Consent Obtained:Verbal Body Regions: Head, Cervical, Thoracic, Lumbar, Sacrum, Pelvis, Upper Extremities and Lower Extremities Head Technique: balanced ligamentous tension Cervical Technique: balanced ligamentous tension, high-velocity low-amplitude thrust Thoracic Technique: myofascial release Lumbar Technique: myofascial release Sacrum Technique: myofascial release Pelvis Technique: myofascial release Upper Extremeties Technique: balanced ligamentous tension Lower Extremities Technique:facilitated positional release, myofascial release Number of Body Regions: 7- 8 Disposition: Osteopathic manipulation tolerated well, reports subjective and objective improvement, improvement in range of motion and mechanics, instructed to increase hydration for the next 24 hours and instructed to follow up if symptoms worsen or fail to improve documented in this encounter [facility] 03-05-2024 Evaluation note Diagnosis Onset Date Resolution Ischial bursitis of right side acute March 05, 024 7:22am Health care maintenance acute [facility] 2024 4:55pm Allergies chronic June 05 4:55pm IBS (irritable bowel syndrome) chronic June 05, 2024 4:55pm Menopausal hot flushes chronic [facility] 2024 4:55pm Pain in left axilla chronic June 05, 2024 4:55pm POTS (postural orthostatic tachycardia syndrome) chronic June 05, 2024 4:55pm Tinnitus of both ears chronic Mar 2024 4:55pm [facility] Work Phone: 1(358) 911-732011-22-2024 Instructions* Patient Instructions* Tanika Alves DO - 02/15/2024 8:30 AM EST Please note the following after treatment with Osteopathic Manipulative Treatment: 1. General aching can occur after manipulative treatment for 1-3 days. You may feel nauseous or unwell for a few hours after the treatment, please call if these symptoms persist for more than 24 hours. 2. Please drink an additional 8-16 ounces of water today. This will help reduce the chance of side effects. 3. Please do not engage in heavy lifting or other strenuous activity for 2 days. 4. Please call if you experience new numbness, weakness, or strong or sharp pain. This is not expected after manipulative treatment and should be evaluated. 5. Please minimize sugar, alcohol, and caffeine for the next 24 hours. Please eat a low-protein meal tonight to reduce nitrogen load on your kidneys. 6. Ensure you are getting adequate sleep; sleep is the time when your body does most of its healing. As a general rule, 7 hours of sleep per night is usually adequate. If you have any further questions or would like clarification on the above instructions, please call our office at [phone]. A message will be left with our physician staff and we will return your phone call as soon as possible. Please leave a current phone number to reach you back. If you need to cancel an appointment, it is important to make our office aware 24-48 hours before cancelling, for us to reschedule that appointment for you. You can call our appointment line at [phone] and press option number 1 to leave a message. Please leave a current phone number to reachyou back. [facility] NoteHNO ID: [id number] Author: TANIKA ALVES DO Service: ? Author Type: Physician Type: Progress Notes Filed: 02/15/2024 08:37 Note Text: Osteopathic Neuromusculoskeletal Medicine Progress Note Name: Margot Hu Date of : 1970 PCP: Ama Hamilton MD Date of Exam: February 15, 2024 SUBJECTIVE Chief Complaint: This is Margot Hu, a 53 year old female who presents with Patient presents with: Buttock Pain: Right side AMB ROOMING INTAKE FLOWSHEET DATA Risk Screening Do you have concerns about personal safety or safety in the home?: No Pain Pain Level: 3 Pain Location: Buttocks-Right Description: Aching, Sharp Duration Units: Weeks Frequency: Intermittent Intervention/Comfort measure: Medication, Reposition, Cold, Pillow support History of Present Illness: Patient presents for follow-up. Good improvement in her usual symptoms of right SI joint pain after last osteopathic manipulative treatment, also reporting full range of motion in the right fourth finger now, though there is still a little bit of aching pain there. It does feel like there is an occasional catch in her right wrist. Overall, she feels improved. However, for the past month and a half or so she has been experiencing gradually worsening aching and sometimes burning pain over the right ischial tuberosity, particularly with sitting or walking. There was no trauma or injury associated with this, however it is interfering with her usual exercise and physical activity. Nightly Advil helps, and sometimes an ice pack will also help (though sometimes it can make it burn more). She has had to sit on a wide oval shaped donut cushion. Medical, surgical, and family histories reviewed. Allergies and social history reviewed. Review of Systems Musculoskeletal: Positive for arthralgias, back pain and gait problem. Negative for joint swelling, myalgias, neck pain and neck stiffness. Neurological: Negative for dizziness, weakness, numbness and headaches. OBJECTIVE BP 114/71 Pulse 77 Temp 96.8 Resp 16 Wt 160 lb 4.4 oz (72.7kg) LMP 10/25/2023 Physical Exam Vitals and nursing note reviewed. Constitutional: General: She is not in acute distress. HENT: Head: Normocephalic and atraumatic. Pulmonary: Effort: Pulmonary effort is normal. Abdominal: General: There is no distension. Palpations: Abdomen is soft. Musculoskeletal: Cervical back: Neck supple. No pain with movement, spinous process tenderness or muscular tenderness. Decreased range of motion. Thoracic back: No spasms, tenderness or bony tenderness. Decreased range of motion. Lumbar back: No spasms, tenderness or bony tenderness. Decreased range of motion. Comments: Marked tenderness with boggy texture over the right ischial tuberosity Skin: General: Skin is warm and dry. Neurological: Mental Status: She is alert. Mental status is at baseline. Psychiatric: Mood and Affect: Mood normal. Somatic Dysfunction by Body Region: Cervical: C5 flexed, rotated and side bent left Thoracic: T2 bilaterally flexed; T4 flexed, rotated and side bent left; T12 extended, rotated and side bent right Lumbar: L5 extended, rotated sidebent right Sacral: Right on left torsion Pelvis: Right innominate markedly anteriorly rotated; tender point over the right ischial tuberosity Upper extremities: Right hamate and fifth metacarpal restricted; right wrist pronated ASSESSMENT AND PLAN Ischial bursitis of right side (primary encounter diagnosis) Chronic right si joint pain Finger pain, right Somatic dysfunction of cervical region Somatic dysfunction of thoracic region Somatic dysfunction of lumbar region Somatic dysfunction of sacral region Somatic dysfunction of pelvis region Somatic dysfunction of upper extremity Orders Placed This Encounter Osteopathic manipulative treatment (OMT) Order Comments: This order was created via procedure documentation Patient presents for follow-up, reporting continuing transient improvement in her usual symptoms of right SI joint pain with OMT. Right fourth finger range of motion is restored, however there is still a little bit of aching pain with an associated catch in the lateral aspect of the right wrist. Now also experiencing pain over the right ischial tuberosity, particular with sitting; exam findings are suggestive of ischial bursitis. Somatic dysfunction correlating with her symptoms was identified on exam today OMT was performed today to improve function and reduce symptoms with good effect. See procedure note below. If ischial bursitis persists after treatment, may ultimately end up requiring corticosteroid injection. Return in about 8 weeks (around 04/11/2024). >50% of time spent on the date of service was dedicated to preparing to see the patient, [id number] patient care, completing clinical documentation, obtaining and/or reviewin (more content not included)...[facility]11-22-2024 History of Present illness Narrative* Tanika Alves DO - 02/15/2024 8:06 AM ESTAssociated Order(s): Osteopathic manipulative treatment (OMT) Post-Procedure Diagnose(s): Somatic dysfunction of cervical region; Somatic dysfunction of thoracicregion; Somatic dysfunction of lumbar region; Somatic dysfunction of sacral region; Somatic dysfunction of pelvis region; Chronic right SI joint pain; Finger pain, right; Ischial bursitis of right side; Somatic dysfunction of upper extremity Images from the original note were not included. Osteopathic Neuromusculoskeletal Medicine Progress Note Name: Margot Hu Date of : 1970 PCP: Aam Hamilton MD Date of Exam: February 15, 2024 SUBJECTIVE Chief Complaint: This is Margot Hu, a 53 year old female who presents with Patient presents with: Buttock Pain: Right side AMB ROOMING INTAKE FLOWSHEET DATA Risk Screening Do you have concerns about personal safety or safety in the home?: No Pain Pain Level: 3 Pain Location: Buttocks-Right Description: Aching, Sharp Duration Units: Weeks Frequency: Intermittent Intervention/Comfort measure: Medication, Reposition, Cold, Pillow support History of Present Illness: Patient presents for follow-up. Good improvement in her usual symptoms of right SI joint pain afterlast osteopathic manipulative treatment, also reporting full range of motion in the right fourth finger now, though there is still a little bit of aching pain there. It does feel like there is an occasional catch in her right wrist. Overall, she feels improved. However, for the past month and a half or so she has been experiencing gradually worsening aching and sometimes burning pain over the right ischial tuberosity, particularly with sitting or walking. There was no trauma or injury associated with this, however it is interfering with her usual exercise and physical activity. Nightly Advil helps, and sometimes an ice pack will also help (though sometimes it can make it burn more). She hashad to sit on a wide oval shaped donut cushion. Medical, surgical, and family histories reviewed. Allergies and social history reviewed. Review of Systems Musculoskeletal: Positive for arthralgias, back pain and gait problem. Negative for joint swelling,myalgias, neck pain and neck stiffness. Neurological: Negative for dizziness, weakness, numbness and headaches. OBJECTIVE BP 114/71 Pulse 77 Temp 96.8 Resp 16 Wt 160 lb 4.4 oz (72.7kg) LMP 10/25/2023 Physical Exam Vitals and nursing note reviewed. Constitutional: General: She is not in acute distress. HENT: Head: Normocephalic and atraumatic. Pulmonary: Effort: Pulmonary effort is normal. Abdominal: General: There is no distension. Palpations: Abdomen is soft. Musculoskeletal: Cervical back: Neck supple. No pain with movement, spinous process tenderness or muscular tenderness. Decreased range of motion. Thoracic back: No spasms, tenderness or bony tenderness. Decreased range of motion. Lumbar back: No spasms, tenderness or bony tenderness. Decreased range of motion. Comments: Marked tenderness with boggy texture over the right ischial tuberosity Skin: General: Skin is warm and dry. Neurological: Mental Status: She is alert. Mental status is at baseline. Psychiatric: Mood and Affect: Mood normal. Somatic Dysfunction by Body Region: Cervical: C5 flexed, rotated and side bent left Thoracic: T2 bilaterally flexed; T4 flexed, rotated and side bent left; T12 extended, rotated and side bent right Lumbar: L5 extended, rotated sidebent right Sacral: Right on left torsion Pelvis: Right innominate markedly anteriorly rotated; tender point over the right ischial tuberosity Upper extremities: Right hamate and fifth metacarpal restricted; right wrist pronated ASSESSMENT & PLAN Ischial bursitis of right side (primary encounter diagnosis) Chronic right si joint pain Finger pain, right Somatic dysfunction of cervical region Somatic dysfunction of thoracic region Somatic dysfunction of lumbar region Somatic dysfunction of sacral region Somatic dysfunction of pelvis region Somatic dysfunction of upper extremity Orders Placed This Encounter Osteopathic manipulative treatment (OMT) Order Comments: This order was created via procedure documentation Patient presents for follow-up, reporting continuing transient improvement in her usual symptoms ofright SI joint pain with OMT. Right fourth finger range of motion is restored, however there is still a little bit of aching pain with an associated catch in the lateral aspect of the right wrist. Now also experiencing pain over the right ischial tuberosity, particular with sitting; exam findings are suggestive of ischial bursitis. Somatic dysfunction correlating with her symptoms was identified on exam today OMT was performed today to improve function and reduce symptoms with good effect. See procedure note below. If ischial bursitis persists after treatment, may ultimately end up requiring corticosteroid injection. Return in about 8 weeks (around 04/11/2024). >50% of time spent on the date of service was dedicated to preparing to see the patient, [id number] patient care, completing clinical documentation, obtaining and/or reviewing separately obtained history, performing a medically appropriate examination, and counseling and educating the patient/f amily/caregiver. This note was partially generated using voice recognition software. It has been reviewed for typographical errors, however some may remain. Any questions regarding meaning or word use should be directed to the author. Tanika Alves DO 8:06 AM 02/15/2024 Procedure Osteopathic manipulative treatment (OMT) Time/Date:02/15/2024 8:34 AM Informed Consent Consent Obtained: Verbal Acworth Protocol A moment to CARE was completed. SIGN IN Special Equipment: N/A Patient/Surrogate Stated/Verified: Patient name, Date of and Intended procedure TIME OUT Intended patient and procedure match the source document(s). Consent documented and matches the intended procedure. Consent Obtained:Verbal Body Regions: Cervical, Thoracic, Lumbar, Pelvis, Sacrum and Upper Extremities Cervical Technique: balanced ligamentous tension Thoracic Technique: facilitated positional release Lumbar Technique: myofascial release Sacrum Technique: myofascial release Pelvis Technique: balanced ligamentous tension, counterstrain Number of Body Regions: 5- 6 Disposition: Osteopathic manipulation tolerated well, reports subjective and objective improvement, improvement in range of motion and mechanics, instructed to increase hydration for the next 24 hours and instructed to follow up if symptoms worsen or fail to improve [facility]* Magaly Sanchez RN - 01/03/2024 10:13 AM EDT Flu/Covid Immunizations were given as ordered. Vaccination information sheets given. Patient tolerated well. Magaly Sanchez RN [facility]10[facility] Nurse Note* Magaly Sanchez RN - 01/03/2024 10:13 AM EDT Flu/Covid Immunizations were given as ordered. Vaccination information sheets given. Patient tolerated well. Magaly Radeanu, RN documented in this [facility]Park[facility] Instructions* Patient Instructions* Tanika Alves DO - 01/03/2024 9:30 AM EDT Please note the following after treatment with Osteopathic Manipulative Treatment: 1. General aching can occur after manipulative treatment for 1-3 days. You may feel nauseous or unwell for a few hours after the treatment, please call if these symptoms persist for more than 24 hours. 2. Please drink an additional 8-16 ounces of water today. This will help reduce the chance of side effects. 3. Please do not engage in heavy lifting or other strenuous activity for 2 days. 4. Please call if you experience new numbness, weakness, or strong or sharp pain. This is not expected after manipulative treatment and should be evaluated. 5. Please minimize sugar, alcohol, and caffeine for the next 24 hours. Please eat a low-protein meal tonight to reduce nitrogen load on your kidneys. 6. Ensure you are getting adequate sleep; sleep is the time when your body does most of its healing. As a general rule, 7 hours of sleep per night is usually adequate. If you have any further questions or would like clarification on the above instructions, please call our office at [phone]. A message will be left with our physician staff and we will return your phone call as soon as possible. Please leave a current phone number to reach you back. If you need to cancel an appointment, it is important to make our office aware 24-48 hours before cancelling, for us to reschedule that appointment for you. You can call our appointment line at [phone] and press option number 1 to leave a message. Please leave a current phone number to reachyou back. documented in this encounterPark[facility]24 NoteHNO ID: [id number] Author: TANIKA ALVES DO Service: ? Author Type: Physician Type: Progress Notes Filed: 01/03/2024 10:31 Note Text: Osteopathic Neuromusculoskeletal Medicine Progress Note Name: Margot Hu Date of : 1970 PCP: Ama Hamilton MD Date of Exam: January 03, 2024 SUBJECTIVE Chief Complaint: This is Margot Hu, a 53 year old female who presents with Patient presents with: Finger Pain si joint pain Immunizations: Flu vaccination AMB ROOMING INTAKE FLOWSHEET DATA Pain Pain Level: 1 Pain Location: Buttocks-Right Description: Aching, Sharp Duration Units: Months Frequency: Intermittent Intervention/Comfort measure: Reposition, Relaxation, Positioning, Cold History of Present Illness: Patient presents for follow-up. Continues to get excellent relief with OMT. Her right fourth finger is generally much less painful though she does continue to get rather prominent sharp pains here and there along the medial aspect of the finger, particularly while she is asleep. She has not been able to identify any particular trigger for the sharp pains. Also continues to have her chronic right SI/buttock pain, getting good relief with OMT but nothing permanent as of yet. Medical, surgical, and family histories reviewed. Allergies and social history reviewed. Review of Systems Musculoskeletal: Positive for arthralgias and back pain. Negative for gait problem, joint swelling, myalgias, neck pain and neck stiffness. Neurological: Negative for dizziness, weakness, numbness and headaches. OBJECTIVE BP 111/67 Pulse 62 Temp (Src) 96.1 (Temporal) Wt 160 lb 4.4 oz (72.7kg) LMP 10/25/2023 Physical Exam Vitals and nursing note reviewed. Constitutional: General: She is not in acute distress. HENT: Head: Normocephalic and atraumatic. Pulmonary: Effort: Pulmonary effort is normal. Abdominal: General: There is no distension. Palpations: Abdomen is soft. Musculoskeletal: Cervical back: Neck supple. No pain with movement, spinous process tenderness or muscular tenderness. Decreased range of motion. Thoracic back: No spasms, tenderness or bony tenderness. Decreased range of motion. Lumbar back: No spasms, tenderness or bony tenderness. Decreased range of motion. Skin: General: Skin is warm and dry. Neurological: Mental Status: She is alert. Mental status is at baseline. Psychiatric: Mood and Affect: Mood normal. Somatic Dysfunction by Body Region: Head: Suboccipital hypertonicity Cervical: C4, C5, flexed rotated and sidebent right Thoracic: T11 flexed rotated and sidebent right Lumbar: Right quadratus lumborum hypertonicity Sacral: Left SI joint tight; mild tightness in the right SI joint Pelvis: Right innominate posterior Ribs: Right ribs 11 and 12 exhaled Upper extremities: herniated trigger point of right 4th PIP; trigger band between the right 4th PIP and DIP ASSESSMENT AND PLAN Chronic right si joint pain (primary encounter diagnosis) Finger pain, right Somatic dysfunction of head region Somatic dysfunction of cervical region Somatic dysfunction of thoracic region Somatic dysfunction of lumbar region Somatic dysfunction of sacral region Somatic dysfunction of pelvis region Somatic dysfunction of upper extremity Need for influenza vaccination Need for vaccination Somatic dysfunction of rib Orders Placed This Encounter Osteopathic manipulative treatment (OMT) Order Comments: This order was created via procedure documentation INFLUENZA VACCINE, AGE 6MO-64YR, TRIVALENT (FLUZONE) Miroi COVID-19 VACCINE AGE 12+ YR (COMIRNATY) Patient presents for follow-up of chronic SI joint pain and persistent pain in the right fourth finger. Overall doing fairly well today, it gets good relief with OMT. Somatic dysfunction correlating with her symptoms was identified on exam today. OMT was performed today to improve function and reduce symptoms with good effect. See procedure note below. Return in about 6 weeks (around 02/14/2024). >50% of time spent on the date of service was dedicated to preparing to see the patient, [id number] patient care, completing clinical documentation, obtaining and/or reviewing separately obtained history, performing a medically appropriate examination, and counseling and educating the patient/family/caregiver. This note was partially generated using voice recognition software. It has been reviewed for typographical errors, however some may remain. Any questions regarding meaning or word use should be directed to the author. The patient was seen, evaluated, and treated with the assistance of Dr. Pretty Charles DO. I was present for the entire visit and personally interviewed, examined, and treated the patient. The resident was also present for the visit and assisted specifically with OMT in a learning role. Luis Freeman (more content not included)...[facility] 01-03-2024 History of Present illness Narrative* Tanika Alves DO - 01/03/2024 9:07 AM EDTAssociated Order(s): Osteopathic manipulative treatment (OMT) Post-Procedure Diagnose(s): Chronic right SI joint pain; Finger pain, right; Somatic dysfunction ofhead region; Somatic dysfunction of cervical region; Somatic dysfunction of thoracic region; Somatic dysfunction of lumbar region; Somatic dysfunction of sacral region; Somatic dysfunction of pelvis region; Somatic dysfunction of upper extremity; Need for influenza vaccination; Need for vaccination; Somatic dysfunction of rib Images from the original note were not included. Osteopathic Neuromusculoskeletal Medicine Progress Note Name: Margot Hu Date of : 1970 PCP: Ama Hamilton MD Date of Exam: January 03, 2024 SUBJECTIVE Chief Complaint: This is Margot Hu, a 53 year old female who presents with Patient presents with: Finger Pain si joint pain Immunizations: Flu vaccination AMB ROOMING INTAKE FLOWSHEET DATA Pain Pain Level: 1 Pain Location: Buttocks-Right Description: Aching, Sharp Duration Units: Months Frequency: Intermittent Intervention/Comfort measure: Reposition, Relaxation, Positioning, Cold History of Present Illness: Patient presents for follow-up. Continues to get excellent relief with OMT. Her right fourth fingeris generally much less painful though she does continue to get rather prominent sharp pains here and there along the medial aspect of the finger, particularly while she is asleep. She has not been able to identify any particular trigger for the sharp pains. Also continues to have her chronic right SI/buttock pain, getting good relief with OMT but nothing permanent as of yet. Medical, surgical, and family histories reviewed. Allergies and social history reviewed. Review of Systems Musculoskeletal: Positive for arthralgias and back pain. Negative for gait problem, joint swelling,myalgias, neck pain and neck stiffness. Neurological: Negative for dizziness, weakness, numbness and headaches. OBJECTIVE BP 111/67 Pulse 62 Temp (Src) 96.1 (Temporal) Wt 160 lb 4.4 oz (72.7kg) LMP 10/25/2023 Physical Exam Vitals and nursing note reviewed. Constitutional: General: She is not in acute distress. HENT: Head: Normocephalic and atraumatic. Pulmonary: Effort: Pulmonary effort is normal. Abdominal: General: There is no distension. Palpations: Abdomen is soft. Musculoskeletal: Cervical back: Neck supple. No pain with movement, spinous process tenderness or muscular tenderness. Decreased range of motion. Thoracic back: No spasms, tenderness or bony tenderness. Decreased range of motion. Lumbar back: No spasms, tenderness or bony tenderness. Decreased range of motion. Skin: General: Skin is warm and dry. Neurological: Mental Status: She is alert. Mental status is at baseline. Psychiatric: Mood and Affect: Mood normal. Somatic Dysfunction by Body Region: Head: Suboccipital hypertonicity Cervical: C4, C5, flexed rotated and sidebent right Thoracic: T11 flexed rotated and sidebent right Lumbar: Right quadratus lumborum hypertonicity Sacral: Left SI joint tight; mild tightness in the right SI joint Pelvis: Right innominate posterior Ribs: Right ribs 11 and 12 exhaled Upper extremities: herniated trigger point of right 4th PIP; trigger band between the right 4th PIPand DIP ASSESSMENT & PLAN Chronic right si joint pain (primary encounter diagnosis) Finger pain, right Somatic dysfunction of head region Somatic dysfunction of cervical region Somatic dysfunction of thoracic region Somatic dysfunction of lumbar region Somatic dysfunction of sacral region Somatic dysfunction of pelvis region Somatic dysfunction of upper extremity Need for influenza vaccination Need for vaccination Somatic dysfunction of rib Orders Placed This Encounter Osteopathic manipulative treatment (OMT) Order Comments: This order was created via procedure documentation INFLUENZA VACCINE, AGE 6MO-64YR, TRIVALENT (FLUZONE) Miroi COVID-19 VACCINE AGE 12+ YR (COMIRNATY) Patient presents for follow-up of chronic SI joint pain and persistent pain in the right fourth finger. Overall doing fairly well today, it gets good relief with OMT. Somatic dysfunction correlating with her symptoms was identified on exam today. OMT was performed today to improve function and reduce symptoms with good effect. See procedure note below. Return in about 6 weeks (around 02/14/2024). >50% of time spent on the date of service was dedicated to preparing to see the patient, [id number] patient care, completing clinical documentation, obtaining and/or reviewing separately obtained history, performing a medically appropriate examination, and counseling and educating the patient/f amily/caregiver. This note was partially generated using voice recognition software. It has been reviewed for typographical errors, however some may remain. Any questions regarding meaning or word use should be directed to the author. The patient was seen, evaluated, and treated with the assistance of Dr. Pretty Charles DO. I was present for the entire visit and personally interviewed, examined, and treated the patient. The resident was also present for the visit and assisted specifically with OMT in a learning role. Tanika Alves DO 9:07 AM 01/03/2024 Procedure Osteopathic manipulative treatment (OMT) Time/Date:01/03/2024 9:35 AM Informed Consent Consent Obtained: Verbal Acworth Protocol SIGN IN Special Equipment: N/A Patient/Surrogate Stated/Verified: Patient name, Date of and Intended procedure TIME OUT Intended patient and procedure match the source document(s). Consent documented and matches the intended procedure. Consent Obtained:Verbal Body Regions: Head, Cervical, Thoracic, Ribs, Lumbar, Pelvis and Sacrum Head Technique: suboccipital release Cervical Technique: balanced ligamentous tension Thoracic Technique: facilitated positional release Ribs Technique: myofascial release Lumbar Technique: myofascial release Sacrum Technique: high-velocity low-amplitude thrust Pelvis Technique: balanced ligamentous tension, myofascial release Number of Body Regions: 7- 8 Disposition: Osteopathic manipulation tolerated well, reports subjective and objective improvement, improvement in range of motion and mechanics, instructed to increase hydration for the next 24 hours and instructed to follow up if symptoms worsen or fail to improve documented [facility] NoteHNO ID: [id number] Author: EASTON PARKER MD Service: ? Author Type: Physician Type: Progress Notes Filed: 12/07/2023 11:30 Note Text: Patient presents with: Right Hand - Established Patient: 1 month follow up HISTORY OF PRESENT ILLNESS Margot Hu presents to the office for follow up of right hand puncture wound. The patient is doing well overall. She is now roughly the 6 weeks out from her initial injury. She has retained full motion. No significant pain generally. She is back to her regular activities. No new complaints or concerns on today's visit. Location: Right hand Severity: 0 on a scale of 0-10 Duration of symptoms: Over 6 weeks Treatments tried include conservative management with antibiotics, early active motion Symptoms have Improved REVIEW OF SYSTEMS Cardiovascular ROS:No history of chest pain, palpitation, orthopnea, cyanosis, pedal edema Neurologic ROS: Numbness and Tingling: No PAST MEDICAL HISTORY Past medical, surgical, family, and social histories have been reviewed and updated with the patient today and are located elsewhere in the medical record. Diabetes:No ALLERGIES ALLERGIES Allergen Reactions Sulfamethoxazole-Tr* Unknown Aleve [Naproxen] Hives Bactrim [Sulfametho* Other: See Comments Swollen joints Lactose Intolerance* Other: See Comments Gastric problems, swelling of lymph nodes Midodrine Rash Penicillins Unknown Childhood reaction. PHYSICAL EXAMINATION Resp 16 Ht 180.3 cm (5' 11) Wt 71.2 kg (157 lb) LMP 10/25/2023 (Exact Date) BMI 21.90 kg/m? Body mass index is 21.9 kg/m?. General Appearance Well appearing, alert, in no acute distress, well-hydrated, well nourished. Alert and oriented times: 3 Normal affect times: 3 Appears stated age and well nourished Gait and station:normal Right Upper Extremity Exam: Inspection demonstrates full healing over the puncture wound There is some scar tissue in the area which is minimally tender Tenderness to palpation: No tenderness along the flexor sheath ROM: Full composite fist, all digits tip to palm Sensation intact median, radial, ulnar nerve distribution 2+ radial pulse REVIEW OF STUDIES No new imaging obtained ASSESSMENT AND PLAN ASSESSMENT/PLAN: 1. Puncture wound of right hand with foreign body, subsequent encounter - ICD9: V58.89, 882.1, ICD10: S61.441D The patient has progressed well. She is back to her regular activities without any issues. We will plan on following up together as needed. She has no particular restrictions from my standpoint. All of her questions were answered to her satisfaction. Easton Parker MD Patient educated on activity restrictions: None. Patient instructed to call the office with questions or concerns.[facility]09-13-2024 History of Present illness Narrative* Easton Parker MD - 12/07/2023 9:35 AM EDT Patient presents with: Right Hand - Established Patient: 1 month follow up HISTORY OF PRESENT ILLNESS Margot Hu presents to the office for follow up of right hand puncture wound. The patient is doing well overall. She is now roughly the 6 weeks out from her initial injury. She has retained full motion. No significant pain generally. She is back to her regular activities. No new complaints orconcerns on today's visit. Location: Right hand Severity: 0 on a scale of 0-10 Duration of symptoms: Over 6 weeks Treatments tried include conservative management with antibiotics, early active motion Symptoms have Improved REVIEW OF SYSTEMS Cardiovascular ROS:No history of chest pain, palpitation, orthopnea, cyanosis, pedal edema Neurologic ROS: Numbness and Tingling: No PAST MEDICAL HISTORY Past medical, surgical, family, and social histories have been reviewed and updated with the patient today and are located elsewhere in the medical record. Diabetes:No ALLERGIES ALLERGIES Allergen Reactions Sulfamethoxazole-Tr* Unknown Aleve [Naproxen] Hives Bactrim [Sulfametho* Other: See Comments Swollen joints Lactose Intolerance* Other: See Comments Gastric problems, swelling of lymph nodes Midodrine Rash Penicillins Unknown Childhood reaction. PHYSICAL EXAMINATION Resp 16 Ht 180.3 cm (5' 11) Wt 71.2 kg (157 lb) LMP 10/25/2023 (Exact Date) BMI 21.90 kg/m Body mass index is 21.9 kg/m . General Appearance Well appearing, alert, in no acute distress, well-hydrated, well nourished. Alert and oriented times: 3 Normal affect times: 3 Appears stated age and well nourished Gait and station:normal Right Upper Extremity Exam: Inspection demonstrates full healing over the puncture wound There is some scar tissue in the area which is minimally tender Tenderness to palpation: No tenderness along the flexor sheath ROM: Full composite fist, all digits tip to palm Sensation intact median, radial, ulnar nerve distribution 2+ radial pulse REVIEW OF STUDIES No new imaging obtained ASSESSMENT AND PLAN ASSESSMENT/PLAN: 1. Puncture wound of right hand with foreign body, subsequent encounter - ICD9: V58.89, 882.1, ICD10: S61.441D The patient has progressed well. She is back to her regular activities without any issues. We will plan on following up together as needed. She has no particular restrictions from my standpoint. All of her questions were answered to her satisfaction. Easton Parker MD Patient educated on activity restrictions: None. Patient instructed to call the office with questions or concerns. [facility] Inst[facility]* Patient Instructions* Tanika Alves DO - 12/03/2023 9:23 AM EDT Please note the following after treatment with Osteopathic Manipulative Treatment: 1. General aching can occur after manipulative treatment for 1-3 days. You may feel nauseous or unwell for a few hours after the treatment, please call if these symptoms persist for more than 24 hours. 2. Please drink an additional 8-16 ounces of water today. This will help reduce the chance of side effects. 3. Please do not engage in heavy lifting or other strenuous activity for 2 days. 4. Please call if you experience new numbness, weakness, or strong or sharp pain. This is not expected after manipulative treatment and should be evaluated. 5. Please minimize sugar, alcohol, and caffeine for the next 24 hours. Please eat a low-protein meal tonight to reduce nitrogen load on your kidneys. 6. Ensure you are getting adequate sleep; sleep is the time when your body does most of its healing. As a general rule, 7 hours of sleep per night is usually adequate. If you have any further questions or would like clarification on the above instructions, please call our office at [phone]. A message will be left with our physician staff and we will return your phone call as soon as possible. Please leave a current phone number to reach you back. If you need to cancel an appointment, it is important to make our office aware 24-48 hours before cancelling, for us to reschedule that appointment for you. You can call our appointment line at [phone] and press option number 1 to leave a message. Please leave a current phone number to reachyou back. documented in this encounter[facility] NoteHNO ID: [id number] Author: TANIKA ALVES DO Service: ? Author Type: Physician Type: Progress Notes Filed: 12/03/2023 09:29 Note Text: Osteopathic Neuromusculoskeletal Medicine Progress Note Name: Margot Hu Date of : 1970 PCP: Ama Hamilton MD Date of Exam: December 03, 2023 SUBJECTIVE Chief Complaint: This is Margot Hu, a 53 year old female who presents with Patient presents with: si joint pain AMB ROOMING INTAKE FLOWSHEET DATA Pain Pain Level: 1 Pain Location: Buttocks-Right Description: Aching Duration Units: Months Frequency: Intermittent Intervention/Comfort measure: Reposition, Relaxation, Positioning, Exercise History of Present Illness: Patient presents for follow-up. She reports continued improvement in the pain in her right fourth finger, which is her principal concern today. There is still lingering aching pain in the finger with occasional swelling, without any particular inciting event when it does get bad. It was, for example, bad this morning when she woke up, calming down after several minutes. She has not reinjured the finger. Right SI joint pain is persistent, but at its baseline. It does not really bother her, only occasionally occurring here and there. Medical, surgical, and family histories reviewed. Allergies and social history reviewed. Review of Systems Musculoskeletal: Positive for arthralgias and joint swelling. Negative for back pain, gait problem, myalgias, neck pain and neck stiffness. Neurological: Negative for dizziness, weakness, numbness and headaches. OBJECTIVE BP 106/66 Pulse 61 Temp (Src) 96.8 (Temporal) Wt 163 lb 2.3 oz (74.0kg) LMP 10/25/2023 Physical Exam Vitals and nursing note reviewed. Constitutional: General: She is not in acute distress. HENT: Head: Normocephalic and atraumatic. Pulmonary: Effort: Pulmonary effort is normal. Abdominal: General: There is no distension. Palpations: Abdomen is soft. Musculoskeletal: Cervical back: Neck supple. No pain with movement, spinous process tenderness or muscular tenderness. Decreased range of motion. Thoracic back: No spasms, tenderness or bony tenderness. Decreased range of motion. Lumbar back: No spasms, tenderness or bony tenderness. Decreased range of motion. Skin: General: Skin is warm and dry. Neurological: Mental Status: She is alert. Mental status is at baseline. Psychiatric: Mood and Affect: Mood normal. Somatic Dysfunction by Body Region: Head: OA flexed, side bent right rotated left Cervical: C3 flexed, rotated and side bent right; C5 extended, rotated and side bent right Thoracic: T6 flexed, rotated and side bent left Lumbar: L3-L5 neutral, side bent right and rotated left Sacral: Sacrum flexed, side bent right rotated left Pelvis: Right innominate anteriorly rotated Upper extremities: Tension in the DIP and PIP of the right fourth finger; mild restriction involving the right metacarpal; right olecranon slightly valgus; right acromioclavicular joint moderately tight ASSESSMENT AND PLAN Finger pain, right (primary encounter diagnosis) Chronic right si joint pain Somatic dysfunction of head region Somatic dysfunction of cervical region Somatic dysfunction of thoracic region Somatic dysfunction of lumbar region Somatic dysfunction of sacral region Somatic dysfunction of pelvis region Somatic dysfunction of upper extremity Orders Placed This Encounter Osteopathic manipulative treatment (OMT) Order Comments: This order was created via procedure documentation Patient presents for follow-up of right fourth finger pain and chronic right SI joint pain. Right fourth finger pain is the principal concern today, improving with OMT. Right SI joint pain is chronic, currently at baseline. Somatic dysfunction correlating with her symptoms was identified on exam today. OMT was performed today to improve function and reduce symptoms with good effect. See procedure note below. Return in about 3 weeks (around 12/24/2023). >50% of time spent on the date of service was dedicated to preparing to see the patient, [id number] patient care, completing clinical documentation, obtaining and/or reviewing separately obtained history, performing a medically appropriate examination, and counseling and educating the patient/family/caregiver. This note was partially generated using voice recognition software. It has been reviewed for typographical errors, however some may remain. Any questions regarding meaning or word use should be directed to the author. Tanika Alves DO 8:58 AM 12/03/2023 Procedure Osteopathic manipulative treatment (OMT) Time/Date:12/03/2023 9:27 AM Informed Consent Consent Obtained: Verbal Acworth Protocol SIGN IN Special Equipment: N/A Patient/Surrogate Stated/Verified: Patient name, Date of and Intended procedure TIME OUT I (more content not included)...[facility]09-09-2024 History of Present illness Narrative* Tanika Alves DO - 12/03/2023 8:58 AM EDT Associated Order(s): Osteopathic manipulative treatment (OMT) Post-Procedure Diagnose(s): Somatic dysfunction of cervical region; Somatic dysfunction of thoracicregion; Somatic dysfunction of lumbar region; Somatic dysfunction of sacral region; Somatic dysfunction of pelvis region; Chronic right SI joint pain; Finger pain, right; Somatic dysfunction of head region; Somatic dysfunction of upper extremity Images from the original note were not included. Osteopathic Neuromusculoskeletal Medicine Progress Note Name: Margot Hu Date of : 1970 PCP: Ama Hamilton MD Date of Exam: December 03, 2023 SUBJECTIVE Chief Complaint: This is Margot Hu, a 53 year old female who presents with Patient presents with: si joint pain AMB ROOMING INTAKE FLOWSHEET DATA Pain Pain Level: 1 Pain Location: Buttocks-Right Description: Aching Duration Units: Months Frequency: Intermittent Intervention/Comfort measure: Reposition, Relaxation, Positioning, Exercise History of Present Illness: Patient presents for follow-up. She reports continued improvement in the pain in her right fourth finger, which is her principal concern today. There is still lingering aching pain in the finger withoccasional swelling, without any particular inciting event when it does get bad. It was, for example, bad this morning when she woke up, calming down after several minutes. She has not reinjured the finger. Right SI joint pain is persistent, but at its baseline. It does not really bother her, only occasionally occurring here and there. Medical, surgical, and family histories reviewed. Allergies and social history reviewed. Review of Systems Musculoskeletal: Positive for arthralgias and joint swelling. Negative for back pain, gait problem,myalgias, neck pain and neck stiffness. Neurological: Negative for dizziness, weakness, numbness and headaches. OBJECTIVE BP 106/66 Pulse 61 Temp (Src) 96.8 (Temporal) Wt 163 lb 2.3 oz (74.0kg) LMP 10/25/2023 Physical Exam Vitals and nursing note reviewed. Constitutional: General: She is not in acute distress. HENT: Head: Normocephalic and atraumatic. Pulmonary: Effort: Pulmonary effort is normal. Abdominal: General: There is no distension. Palpations: Abdomen is soft. Musculoskeletal: Cervical back: Neck supple. No pain with movement, spinous process tenderness or muscular tenderness. Decreased range of motion. Thoracic back: No spasms, tenderness or bony tenderness. Decreased range of motion. Lumbar back: No spasms, tenderness or bony tenderness. Decreased range of motion. Skin: General: Skin is warm and dry. Neurological: Mental Status: She is alert. Mental status is at baseline. Psychiatric: Mood and Affect: Mood normal. Somatic Dysfunction by Body Region: Head: OA flexed, side bent right rotated left Cervical: C3 flexed, rotated and side bent right; C5 extended, rotated and side bent right Thoracic: T6 flexed, rotated and side bent left Lumbar: L3-L5 neutral, side bent right and rotated left Sacral: Sacrum flexed, side bent right rotated left Pelvis: Right innominate anteriorly rotated Upper extremities: Tension in the DIP and PIP of the right fourth finger; mild restriction involving the right metacarpal; right olecranon slightly valgus; right acromioclavicular joint moderately tight ASSESSMENT & PLAN Finger pain, right (primary encounter diagnosis) Chronic right si joint pain Somatic dysfunction of head region Somatic dysfunction of cervical region Somatic dysfunction of thoracic region Somatic dysfunction of lumbar region Somatic dysfunction of sacral region Somatic dysfunction of pelvis region Somatic dysfunction of upper extremity Orders Placed This Encounter Osteopathic manipulative treatment (OMT) Order Comments: This order was created via procedure documentation Patient presents for follow-up of right fourth finger pain and chronic right SI joint pain. Right fourth finger pain is the principal concern today, improving with OMT. Right SI joint pain is chronic, currently at baseline. Somatic dysfunction correlating with her symptoms was identified on exam today. OMT was performed today to improve function and reduce symptoms with good effect. See procedure note below. Return in about 3 weeks (around 12/24/2023). >50% of time spent on the date of service was dedicated to preparing to see the patient, [id number] patient care, completing clinical documentation, obtaining and/or reviewing separately obtained history, performing a medically appropriate examination, and counseling and educating the patient/f amily/caregiver. This note was partially generated using voice recognition software. It has been reviewed for typographical errors, however some may remain. Any questions regarding meaning or word use should be directed to the author. Tanika Alves DO 8:58 AM 12/03/2023 Procedure Osteopathic manipulative treatment (OMT) Time/Date:12/03/2023 9:27 AM Informed Consent Consent Obtained: Verbal Acworth Protocol SIGN IN Special Equipment: N/A Patient/Surrogate Stated/Verified: Patient name, Date of and Intended procedure TIME OUT Intended patient and procedure match the source document(s). Consent documented and matches the intended procedure. Consent Obtained:Verbal Body Regions: Head, Cervical, Thoracic, Lumbar, Sacrum, Pelvis and Upper Extremities Head Technique: Facilitated positional release Cervical Technique: balanced ligamentous tension Thoracic Technique: balanced ligamentous tension Lumbar Technique: balanced ligamentous tension Sacrum Technique: balanced ligamentous tension Pelvis Technique: facilitated positional release Upper Extremeties Technique: balanced ligamentous tension, myofascial release Number of Body Regions: 5- 6 Disposition: Osteopathic manipulation tolerated well, reports subjective and objective improvement, improvement in range of motion and mechanics, instructed to increase hydration for the next 24 hours and instructed to follow up if symptoms worsen or fail to improve documented in this encounterPark[facility] Instructions* Patient Instructions* Tanika Alves DO - 11/15/2023 9:31 AM EDT Please note the following after treatment with Osteopathic Manipulative Treatment: 1. General aching can occur after manipulative treatment for 1-3 days. You may feel nauseous or unwell for a few hours after the treatment, please call if these symptoms persist for more than 24 hours. 2. Please drink an additional 8-16 ounces of water today. This will help reduce the chance of side effects. 3. Please do not engage in heavy lifting or other strenuous activity for 2 days. 4. Please call if you experience new numbness, weakness, or strong or sharp pain. This is not expected after manipulative treatment and should be evaluated. 5. Please minimize sugar, alcohol, and caffeine for the next 24 hours. Please eat a low-protein meal tonight to reduce nitrogen load on your kidneys. 6. Ensure you are getting adequate sleep; sleep is the time when your body does most of its healing. As a general rule, 7 hours of sleep per night is usually adequate. If you have any further questions or would like clarification on the above instructions, please call our office at [phone]. A message will be left with our physician staff and we will return your phone call as soon as possible. Please leave a current phone number to reach you back. If you need to cancel an appointment, it is important to make our office aware 24-48 hours before cancelling, for us to reschedule that appointment for you. You can call our appointment line at [phone] and press option number 1 to leave a message. Please leave a current phone number to reachyou back. documented in this encounterPark[facility]24 NoteHNO ID: [id number] Author: TANIKA ALVES DO Service: ? Author Type: Physician Type: Progress Notes Filed: 11/15/2023 09:40 Note Text: Osteopathic Neuromusculoskeletal Medicine Progress Note Name: Margot Hu Date of : 1970 PCP: Ama Hamilton MD Date of Exam: November 15, 2023 SUBJECTIVE Chief Complaint: This is Margot Hu, a 53 year old female who presents with Patient presents with: SI Joint Pain: Right side. AMB ROOMING INTAKE FLOWSHEET DATA Pain Pain Level: 1 Pain Location: Back-Lower Description: Aching Duration Units: Months Frequency: Intermittent Intervention/Comfort measure: Medication, Reposition, Cold History of Present Illness: Patient presents for follow-up. After last osteopathic manipulative treatment she reports that she was doing fairly well, until late September when she was on a hiking trip in [place]. After returning from the trip, she noticed return of pain in her right SI joint, similar to prior. Is a mild but persistent aching. For the past several days it has been a little bit worse. Her left knee pain/swelling is resolved. The pain in the right fourth finger is also much improved, though still present, particularly in the morning. Notably, she recently had an injury at work in which a screw punctured her right hand, though the subsequent pain is gradually improving as well; the screw did not damage any neurovascular structures. Medical, surgical, and family histories reviewed. Allergies and social history reviewed. Review of Systems Musculoskeletal: Positive for arthralgias, joint swelling, myalgias and neck pain. Negative for back pain, gait problem and neck stiffness. Neurological: Negative for dizziness, weakness, numbness and headaches. OBJECTIVE BP 105/67 Pulse 73 Temp (Src) 97.7 (Temporal) Wt 158 lb 11.7 oz (72.0kg) LMP 10/25/2023 Physical Exam Vitals and nursing note reviewed. Constitutional: General: She is not in acute distress. HENT: Head: Normocephalic and atraumatic. Pulmonary: Effort: Pulmonary effort is normal. Abdominal: General: There is no distension. Palpations: Abdomen is soft. Musculoskeletal: Cervical back: Neck supple. No pain with movement, spinous process tenderness or muscular tenderness. Decreased range of motion. Thoracic back: No spasms, tenderness or bony tenderness. Decreased range of motion. Lumbar back: No spasms, tenderness or bony tenderness. Decreased range of motion. Skin: General: Skin is warm and dry. Neurological: Mental Status: She is alert. Mental status is at baseline. Psychiatric: Mood and Affect: Mood normal. Somatic Dysfunction by Body Region: Cervical: Left-sided paraspinal hypertonicity; C5 rotated left and C7 rotated right Thoracic: T6 extended, rotated and side bent right Lumbar: L2-L5 neutral, sidebent right rotated left Sacral: Right posterior base Pelvis: Right innominate anteriorly rotated Upper extremities: Right fourth metacarpal tight; right olecranon radially deviated ASSESSMENT AND PLAN Chronic right si joint pain (primary encounter diagnosis) Tendinopathy of gluteus medius Right hand pain Somatic dysfunction of cervical region Somatic dysfunction of thoracic region Somatic dysfunction of lumbar region Somatic dysfunction of sacral region Somatic dysfunction of pelvis region Somatic dysfunction of upper extremity Orders Placed This Encounter Osteopathic manipulative treatment (OMT) Order Comments: This order was created via procedure documentation Patient presents for follow-up of right SI joint pain which has flared up again in the past several weeks. Also presenting for follow-up of right finger pain. Somatic dysfunction correlating with her symptoms was identified on exam today. OMT was performed today to improve function and reduce symptoms with good effect. See procedure note below. Return in about 4 weeks (around 12/13/2023). >50% of time spent on the date of service was dedicated to preparing to see the patient, [id number] patient care, completing clinical documentation, obtaining and/or reviewing separately obtained history, performing a medically appropriate examination, and counseling and educating the patient/family/caregiver. The patient was seen, evaluated, and treated with the assistance of Dr. Natali Spann DO, PGY-IV ONMM. This note was partially generated using voice recognition software. It has been reviewed for typographical errors, however some may remain. Any questions regarding meaning or word use should be directed to the author. Tanika Alves DO 9:00 AM 11/15/2023 Procedure Osteopathic manipulative treatment (OMT) Time/Date:11/15/2023 9:37 AM Informed Consent Consent Obtained: Verbal Acworth Protocol SIGN IN Special Equipment: N/A Patient/Surrogate Stated/Verified: Patient name, Date of and Intended proce (more content not included)...[facility] History of Present illness Narrative* Tanika Alves DO - 11/15/2023 9:00 AM EDT Associated Order(s): Osteopathic manipulative treatment (OMT) Post-Procedure Diagnose(s): Somatic dysfunction of cervical region; Somatic dysfunction of thoracicregion; Somatic dysfunction of lumbar region; Right hand pain; Somatic dysfunction of sacral region; Somatic dysfunction of pelvis region; Chronic right SI joint pain; Somatic dysfunction of upper extremity; Tendinopathy of gluteus medius Images from the original note were not included. Osteopathic Neuromusculoskeletal Medicine Progress Note Name: Margot Hu Date of : 1970 PCP: Ama Hamilton MD Date of Exam: November 15, 2023 SUBJECTIVE Chief Complaint: This is Margot Hu, a 53 year old female who presents with Patient presents with: SI Joint Pain: Right side. AMB ROOMING INTAKE FLOWSHEET DATA Pain Pain Level: 1 Pain Location: Back-Lower Description: Aching Duration Units: Months Frequency: Intermittent Intervention/Comfort measure: Medication, Reposition, Cold History of Present Illness: Patient presents for follow-up. After last osteopathic manipulative treatment she reports that she was doing fairly well, until late September when she was on a hiking trip in [place]. After returning from the trip, she noticed return of pain in her right SI joint, similar to prior. Is a mild but persistent aching. For the past several days it has been a little bit worse. Her left knee pain/swelling is resolved. The pain in the right fourth finger is also much improved,though still present, particularly in the morning. Notably, she recently had an injury at work in which a screw punctured her right hand, though the subsequent pain is gradually improving as well; the screw did not damage any neurovascular structures. Medical, surgical, and family histories reviewed. Allergies and social history reviewed. Review of Systems Musculoskeletal: Positive for arthralgias, joint swelling, myalgias and neck pain. Negative for back pain, gait problem and neck stiffness. Neurological: Negative for dizziness, weakness, numbness and headaches. OBJECTIVE BP 105/67 Pulse 73 Temp (Src) 97.7 (Temporal) Wt 158 lb 11.7 oz (72.0kg) LMP 10/25/2023 Physical Exam Vitals and nursing note reviewed. Constitutional: General: She is not in acute distress. HENT: Head: Normocephalic and atraumatic. Pulmonary: Effort: Pulmonary effort is normal. Abdominal: General: There is no distension. Palpations: Abdomen is soft. Musculoskeletal: Cervical back: Neck supple. No pain with movement, spinous process tenderness or muscular tenderness. Decreased range of motion. Thoracic back: No spasms, tenderness or bony tenderness. Decreased range of motion. Lumbar back: No spasms, tenderness or bony tenderness. Decreased range of motion. Skin: General: Skin is warm and dry. Neurological: Mental Status: She is alert. Mental status is at baseline. Psychiatric: Mood and Affect: Mood normal. Somatic Dysfunction by Body Region: Cervical: Left-sided paraspinal hypertonicity; C5 rotated left and C7 rotated right Thoracic: T6 extended, rotated and side bent right Lumbar: L2-L5 neutral, sidebent right rotated left Sacral: Right posterior base Pelvis: Right innominate anteriorly rotated Upper extremities: Right fourth metacarpal tight; right olecranon radially deviated ASSESSMENT & PLAN Chronic right si joint pain (primary encounter diagnosis) Tendinopathy of gluteus medius Right hand pain Somatic dysfunction of cervical region Somatic dysfunction of thoracic region Somatic dysfunction of lumbar region Somatic dysfunction of sacral region Somatic dysfunction of pelvis region Somatic dysfunction of upper extremity Orders Placed This Encounter Osteopathic manipulative treatment (OMT) Order Comments: This order was created via procedure documentation Patient presents for follow-up of right SI joint pain which has flared up again in the past severalweeks. Also presenting for follow-up of right finger pain. Somatic dysfunction correlating with hersymptoms was identified on exam today. OMT was performed today to improve function and reduce symptoms with good effect. See procedure note below. Return in about 4 weeks (around 12/13/2023). >50% of time spent on the date of service was dedicated to preparing to see the patient, [id number] patient care, completing clinical documentation, obtaining and/or reviewing separately obtained history, performing a medically appropriate examination, and counseling and educating the patient/f amily/caregiver. The patient was seen, evaluated, and treated with the assistance of Dr. Natali Spann DO, PGY-IV ON. This note was partially generated using voice recognition software. It has been reviewed for typographical errors, however some may remain. Any questions regarding meaning or word use should be directed to the author. Tanika Alves DO 9:00 AM 11/15/2023 Procedure Osteopathic manipulative treatment (OMT) Time/Date:11/15/2023 9:37 AM Informed Consent Consent Obtained: Verbal Acworth Protocol SIGN IN Special Equipment: N/A Patient/Surrogate Stated/Verified: Patient name, Date of and Intended procedure TIME OUT Intended patient and procedure match the source document(s). Consent documented and matches the intended procedure. Consent Obtained:Verbal Body Regions: Cervical, Thoracic, Lumbar, Sacrum, Pelvis and Upper Extremities Cervical Technique: balanced ligamentous tension, facilitated positional release Thoracic Technique: balanced ligamentous tension Lumbar Technique: balanced ligamentous tension Sacrum Technique: myofascial release Pelvis Technique: balanced ligamentous tension Upper Extremeties Technique: balanced ligamentous tension Number of Body Regions: 5- 6 Disposition: Osteopathic manipulation tolerated well, reports subjective and objective improvement, improvement in range of motion and mechanics, instructed to increase hydration for the next 24 hours and instructed to follow up if symptoms worsen or fail to improve documented in [facility] Medical Records Department [address] [place] [address] History Physical Exam 11/06/23712 MR#: [id number] Acct: [id number] Name: MARGOT HU Rep #: [id number] : 1970 53 From: Natalya Schaffer DO PCP: Dr. Ama Hamilton MD Status:[facility] Location: [place] [address]- History and Physical Date of Admission: 11/06/23 Vital Signs 07/29/2410:59 10/28/2414:38 10/28/2414:40 Height 5 ft 11 in 5 ft 11 in 5 ft 11 in Weight: 159 lb 2 oz 160 lb BMI 22.1 22.3 BP 110/72 126/84 H Intake Visit Reasons: D C polypectomy Manager Systems Required: No Is patient in pain?: No Allergies naproxen sodium (From Aleve) Allergy (Severe, Verified 10/29/23 15:38) HivesPenicillins (PCN) Allergy (Unknown, Verified 10/29/23 15:38) Unknownmidodrine Allergy (Verified 10/29/23 15:38) RashSulfa (Sulfonamide Antibiotics) Adverse Reaction (Severe, Verified 10/29/23 15:38) Other Medications ???Medication ???Instructions ???Recorded ???Confirmed ???Type multivitamin,[id number] 27 1 tab PO DAILY 01/29/17 10/29/23 History mg-0.4 mg tablet krill 1,000 mg-omega-3 170 mg-dha 1 cap PO BID 04/19/17 10/29/23 History 50 mg-epa 80 [id number] capsule (krill oil) cholecalciferol (vitamin D3) 125 5,000 unit PO DAILY 04/03/19 10/29/23 History mcg (5,000 unit) disintegrating tablet magnesium 30 mg tablet 30 mg PO DAILY 04/15/20 10/29/23 History melatonin 10 mg capsule 5 mg PO HS 04/15/20 10/29/23 History gabapentin 300 mg capsule 300 mg PO QHS #90 caps 11/01/22 10/29/23 Rx medroxyprogesterone 2.5 mg tablet 2.5 mg PO DAILY #90 tabs 11/01/22 10/29/23 Rx estradiol 0.05 mg/24 hr semiweekly 1 patch transdermal 2XW #24 ea 07/30/23 10/29/23 Rx transdermal patch (Vivelle-Dot) Post menopausal: No Patient : No : No PFSH Medical History Wears contact lenses Post-menopausal Open wound Non-smoker History of stress test History of echocardiogram Cardiology follow-up encounter PONV (postoperative nausea and vomiting) Tinnitus Preventative health care Dermatitis Cellulitis Menopausal hot flushes Anxiety SIBO Gastroenteritis IBS (irritable bowel syndrome) Goiter POTS (postural orthostatic tachycardia syndrome) Surgical History History of thyroid surgery hemangeoma left elbow Mucinous cystadenoma of right ovary Tendinopathy of right gluteal region Tendinopathy of left gluteus medius History of arthroscopy of left knee History of section History of tonsillectomy History of appendectomy left knee scope hemangeoma left elbow Right Mucinous Cystadenoma left glute medius tenson repair right glute medius tendon repair left knee scope History of History of tonsillectomy History of appendectomy Family History Mother Heart disease HypertensionFather Hypertension Arthritis Anxiety HyperlipemiaGrandfather Myocardial infarction, Onset Age: 60Aunt Myocardial infarction, Onset Age: 75 CLL (chronic lymphocytic leukemia) Social History household members: spouse and children Smoking Status: Never smoker alcohol intake: current alcohol intake frequency: holidays/special occasions only substance use type: does not use caffeine: Yes what type of physical activity do you participate in: walking, yoga and aerobics frequency: 5-6 times per week HPI D C polypectomy Details: MARGOT HU is a 52 year old who presents for a pre-op hysteroscopy d c polypectomy for cervical polyp. She has started to experience withdrawal bleeding from the progesterone recently when she went on her 1 week break. Plan is to do the D C first then re-evaluate after surgery about hormone changes causing some of the bleeding. ROS Const ROS Unobtainable: All systems reviewed are unremarkable except as noted in H Resp Resp: Reports system reviewed and no additional complaints, except as documented; Denies cough GI GI: Reports as per HPI Psych Psych: Reports system reviewed and no additional complaints, except as documented Exam Const General: cooperative, healthy appearing, comfortable and no acute distress Resp Effort Inspection: normal respiratory effort Skin General: no rashes or lesions noted Psych Appearance: grossly normal Speech and Movement: speech and movement normal Coding Level of Care Code Off vis,est,level 4 Diagnoses Polyp of cervix uteri N84.1 Postmenopausal bleeding N95.0 Female climacteric state N95.1 Assessment and Plan Assessment and Plan (1) Polyp of cervix uteri: Status: Acute (2) Postmenopausal bleeding: Status: Acute (more content not included)...[facility]08-09-2024 NoteHNO ID: [id number] Author: EASTON PARKER MD Service: ? Author Type: Physician Type: Progress Notes Filed: 11/02/2023 09:05 Note Text: Patient presents with: Right Hand - Established Patient HISTORY OF PRESENT ILLNESS Margot Hu presents to the office for follow up of right hand puncture wound. The patient reports that the injury is still rather sore but is improving consistently. She notes that yesterday she was able to go without Aleve. No numbness or tingling. There has been some continued scant drainage. She has continued to work without any limitations. Location: Right hand Severity: 1 on a scale of 0-10 Duration of symptoms: 8 days Treatments tried include antibiotics, anti-inflammatories Symptoms have Improved REVIEW OF SYSTEMS Cardiovascular ROS:No history of chest pain, palpitation, orthopnea, cyanosis, pedal edema Neurologic ROS: Numbness and Tingling: No PAST MEDICAL HISTORY Past medical, surgical, family, and social histories have been reviewed and updated with the patient today and are located elsewhere in the medical record. Diabetes:No ALLERGIES ALLERGIES Allergen Reactions Sulfamethoxazole-Tr* Unknown Aleve [Naproxen] Hives Bactrim [Sulfametho* Other: See Comments Swollen joints Lactose Intolerance* Other: See Comments Gastric problems, swelling of lymph nodes Midodrine Rash Penicillins Unknown Childhood reaction. PHYSICAL EXAMINATION Ht 180.3 cm (5' 11) Wt 71.7 kg (158 lb) LMP 10/25/2023 (Exact Date) BMI 22.04 kg/m? Body mass index is 22.04 kg/m?. General Appearance Well appearing, alert, in no acute distress, well-hydrated, well nourished. Alert and oriented times: 3 Normal affect times: 3 Appears stated age and well nourished Gait and station:normal Right Upper Extremity Exam: Inspection shows minimal swelling Open wound has decreased in diameter Tenderness to palpation: Tenderness within the palm, within expectations ROM: Full composite fist, all digits tip to palm Sensation intact median, radial, ulnar nerve distribution 2+ radial pulse REVIEW OF STUDIES No new imaging obtained X-rays 10/25/23 3 views of the right hand: No acute fracture or dislocation. Joint spaces are maintained. There are multiple tiny densities between the third and fourth metatarsal heads which could be due to foreign bodies. ASSESSMENT AND PLAN ASSESSMENT/PLAN: 1. Puncture wound of right hand with foreign body, subsequent encounter - ICD9: V58.89, 882.1, ICD10: S61.441D The patient continues to make progress. We will plan on maintaining our current treatment regimen and she will complete the oral antibiotic therapy. We will follow-up in 1 month to ensure uneventful resolution. If there is any degree of worsening we have a plan for her to contact me and earlier follow-up will be arranged. All of her questions were answered to her satisfaction. Easton Parker MD Patient educated on wound care, range of motion exercises. Patient instructed to call the office with questions or concerns.[facility]08-09-2024 History of Present illness Narrative* Easton Parker MD - 11/02/2023 8:54 AM EDT Patient presents with: Right Hand - Established Patient HISTORY OF PRESENT ILLNESS Margot Hu presents to the office for follow up of right hand puncture wound. The patient reports that the injury is still rather sore but is improving consistently. She notes that yesterday she was able to go without Aleve. No numbness or tingling. There has been some continued scant drainage. She has continued to work without any limitations. Location: Right hand Severity: 1 on a scale of 0-10 Duration of symptoms: 8 days Treatments tried include antibiotics, anti-inflammatories Symptoms have Improved REVIEW OF SYSTEMS Cardiovascular ROS:No history of chest pain, palpitation, orthopnea, cyanosis, pedal edema Neurologic ROS: Numbness and Tingling: No PAST MEDICAL HISTORY Past medical, surgical, family, and social histories have been reviewed and updated with the patient today and are located elsewhere in the medical record. Diabetes:No ALLERGIES ALLERGIES Allergen Reactions Sulfamethoxazole-Tr* Unknown Aleve [Naproxen] Hives Bactrim [Sulfametho* Other: See Comments Swollen joints Lactose Intolerance* Other: See Comments Gastric problems, swelling of lymph nodes Midodrine Rash Penicillins Unknown Childhood reaction. PHYSICAL EXAMINATION Ht 180.3 cm (5' 11) Wt 71.7 kg (158 lb) LMP 10/25/2023 (Exact Date) BMI 22.04 kg/m Body mass index is 22.04 kg/m . General Appearance Well appearing, alert, in no acute distress, well-hydrated, well nourished. Alert and oriented times: 3 Normal affect times: 3 Appears stated age and well nourished Gait and station:normal Right Upper Extremity Exam: Inspection shows minimal swelling Open wound has decreased in diameter Tenderness to palpation: Tenderness within the palm, within expectations ROM: Full composite fist, all digits tip to palm Sensation intact median, radial, ulnar nerve distribution 2+ radial pulse REVIEW OF STUDIES No new imaging obtained X-rays 10/25/23 3 views of the right hand: No acute fracture or dislocation. Joint spaces are maintained. There are multiple tiny densities between the third and fourth metatarsal heads which could be due to foreign bodies. ASSESSMENT AND PLAN ASSESSMENT/PLAN: 1. Puncture wound of right hand with foreign body, subsequent encounter - ICD9: V58.89, 882.1, ICD10: S61.441D The patient continues to make progress. We will plan on maintaining our current treatment regimen and she will complete the oral antibiotic therapy. We will follow-up in 1 month to ensure uneventful resolution. If there is any degree of worsening we have a plan for her to contact me and earlier follow-up will be arranged. All of her questions were answered to her satisfaction. Easton Parker MD Patient educated on wound care, range of motion exercises. Patient instructed to call the office with questions or concerns. documented in this encounter[facility] NoteHNO ID: [id number] Author: EASTON PARKER MD Service: ? Author Type: Physician Type: Progress Notes Filed: 10/30/2023 10:17 Note Text: Patient presents with: Right Hand - New, Pain HISTORY OF PRESENT ILLNESS Margot Hu is a 52 year old female right hand dominant who presents for evaluation of a puncture wound to the right hand. The patient sustained an injury at work yesterday when she was sitting in a chair which had broken and collapsed and a screw had penetrated the palmar aspect of the hand between the third and fourth metacarpals. She was evaluated at the emergency department and placed on antibiotics. She reports mild pain, no worsening. She has been tolerating the oral antibiotics. Ports no numbness or tingling. 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 Diabetes:No ALLERGIES ALLERGIES Allergen Reactions Sulfamethoxazole-Tr* Unknown Aleve [Naproxen] Hives Bactrim [Sulfametho* Other: See Comments Swollen joints Lactose Intolerance* Other: See Comments Gastric problems, swelling of lymph nodes Midodrine Rash Penicillins Unknown Childhood reaction. PHYSICAL EXAMINATION Temp 36.8 ?C (98.2 ?F) Ht 180.3 cm (5' 11) Wt 70.3 kg (155 lb) LMP 10/25/2023 (Exact Date) BMI 21.62 kg/m? Body mass index is 21.62 kg/m?. General Appearance Well appearing, alert, in no acute distress, well-hydrated, well nourished. Alert and oriented times: 3 Normal affect times: 3 Appears stated age and well nourished Gait and station:normal Right Upper Extremity Exam: Demonstrates a puncture wound between the third and fourth metacarpals roughly at the level of the distal palmar crease There is no active drainage Skin: WNL Tenderness to palpation: Mild tenderness in line with expectations No tenderness distally along the flexor sheath of either the middle or ring fingers ROM: Full composite fist Independent flexion of the FDS, FDP tendons of the middle, ring fingers is noted Instability: none Sensation:Normal sensation on the radial and ulnar aspect of the middle and ring fingers respectively Atrophy: None Brisk capillary refill REVIEW OF STUDIES X-rays 10/25/23 3 views of the right hand: No acute fracture or dislocation. Joint spaces are maintained. There are multiple tiny densities between the third and fourth metatarsal heads which could be due to foreign bodies. ASSESSMENT AND PLAN ASSESSMENT/PLAN: 1. Puncture wound of right hand with foreign body, initial encounter - ICD9: 882.1, ICD10: S61.441A (primary diagnosis) 2. Injury of right hand, initial encounter - ICD9: 959.4, ICD10: S69.91XA I reviewed the imaging with the patient. There is some radiopaque material within the hand although no sizable foreign body is noted. The puncture wound appears to have avoided the neurovascular bundles as well as the flexor sheaths. I recommended that we continue to treat this conservatively and that she continue out the oral antibiotics until completion. Will plan on following up next week to ensure uneventful healing. She may continue to work. All of her questions were answered to her satisfaction. Easton Parker MD Patient educated on wound care, antibiotic therapy. Patient instructed to call the office with questions or concerns.[facility]08-02-[facility] History of Present illness Narrative* Easton Parker MD - 10/26/2023 10:17 AM EDT Patient presents with: Right Hand - New, Pain HISTORY OF PRESENT ILLNESS Margot Hu is a 52 year old female right hand dominant who presents for evaluation of a puncture wound to the right hand. The patient sustained an injury at work yesterday when she was sitting in a chair which had broken and collapsed and a screw had penetrated the palmar aspect of the hand between the third and fourth metacarpals. She was evaluated at the emergency department and placed onantibiotics. She reports mild pain, no worsening. She has been tolerating the oral antibiotics. Ports no numbness or tingling. 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 Diabetes:No ALLERGIES ALLERGIES Allergen Reactions Sulfamethoxazole-Tr* Unknown Aleve [Naproxen] Hives Bactrim [Sulfametho* Other: See Comments Swollen joints Lactose Intolerance* Other: See Comments Gastric problems, swelling of lymph nodes Midodrine Rash Penicillins Unknown Childhood reaction. PHYSICAL EXAMINATION Temp 36.8 C (98.2 F) Ht 180.3 cm (5' 11) Wt 70.3 kg (155 lb) LMP 10/25/2023 (Exact Date) BMI 21.62 kg/m Body mass index is 21.62 kg/m . General Appearance Well appearing, alert, in no acute distress, well-hydrated, well nourished. Alert and oriented times: 3 Normal affect times: 3 Appears stated age and well nourished Gait and station:normal Right Upper Extremity Exam: Demonstrates a puncture wound between the third and fourth metacarpals roughly at the level of the distal palmar crease There is no active drainage Skin: WNL Tenderness to palpation: Mild tenderness in line with expectations No tenderness distally along the flexor sheath of either the middle or ring fingers ROM: Full composite fist Independent flexion of the FDS, FDP tendons of the middle, ring fingers is noted Instability: none Sensation:Normal sensation on the radial and ulnar aspect of the middle and ring fingers respectively Atrophy: None Brisk capillary refill REVIEW OF STUDIES X-rays 10/25/23 3 views of the right hand: No acute fracture or dislocation. Joint spaces are maintained. There are multiple tiny densities between the third and fourth metatarsal heads which could be due to foreign bodies. ASSESSMENT AND PLAN ASSESSMENT/PLAN: 1. Puncture wound of right hand with foreign body, initial encounter - ICD9: 882.1, ICD10: S61.441A(primary diagnosis) 2. Injury of right hand, initial encounter - ICD9: 959.4, ICD10: S69.91XA I reviewed the imaging with the patient. There is some radiopaque material within the hand althoughno sizable foreign body is noted. The puncture wound appears to have avoided the neurovascular bundles as well as the flexor sheaths. I recommended that we continue to treat this conservatively and that she continue out the oral antibiotics until completion. Will plan on following up next week to ensure uneventful healing. She may continue to work. All of her questions were answered to her satisfaction. Easton Parker MD Patient educated on wound care, antibiotic therapy. Patient instructed to call the office with questions or concerns. * Cristóbal Lockhart Tech - 10/26/2023 9:53 AM EDT REVIEW OF SYSTEMS: GENERAL: Well developed, well nourished. No acute distress PAIN: Negative for pain, history of chronic pain or current treatment for chronic pain conditions CARDIOVASCULAR: Negative for chest pain, leg swelling and palpations. MSK: Negative for joint swelling SKIN: Negative for lesions, rash, itching, metal sensitivity NEURO: Negative for seizure, trauma, numbness/tingling of extremities. ENDOCRINE: Negative for diabetic associated symptoms HEMATOLOGY: Negative for excessive bleeding, clots, bleeding disorders. documented in this encounterPark[facility] NoteHNO ID: [id number] Author: CRISTÓBAL LOCKHART Tech Service: ? Author Type: Morning [employer] Producer Type: Progress Notes Filed: 10/30/2023 10:17 Note Text: REVIEW OF SYSTEMS: GENERAL: Well developed, well nourished. No acute distress PAIN: Negative for pain, history of chronic pain or current treatment for chronic pain conditions CARDIOVASCULAR: Negative for chest pain, leg swelling and palpations. MSK: Negative for joint swelling SKIN: Negative for lesions, rash, itching, metal sensitivity NEURO: Negative for seizure, trauma, numbness/tingling of extremities. ENDOCRINE: Negative for diabetic associated symptoms HEMATOLOGY: Negative for excessive bleeding, clots, bleeding disorders.[facility]08-01-2024 Telephone encounter Note* Telephone Encounter - SantiagoporshaBlanca - 10/25/2023 11:42 AM EDT ----- Message from Marleen Combs sent at 10/25/2023 11:38 AM EDT ----- Regarding: Orthopedics / Hand: Laceration (Cut) / Workers Compensation Case Orthopedics / Hand: Laceration (Cut) / Workers Compensation Case Patient has been identified by name and Date of (Y/N): Y Patient: Margot Hu Date of : 1970 Previous Provider Seen: NA Body Part(s) Identified: Rt Hand Diagnosis/Reason For Visit: Puncture Wound Reason for the call/escalation: [facility] Puncture wound occurred at work. If reason for call/escalation is discharge from ED/ER or Hospital, which facility was the patient seen at: na Was an appointment scheduled (Y/N): N-can not schedule worker's comp. Person calling if other than patient: pt Return call to if other than patient: pt Best contact number: [phone] Thank you, Marleen Combs October 25, 2023 11:39 AM [facility]08-01-2024 Miscellaneous Notes* Telephone Encounter - Blanca Hernández - 10/25/2023 11:42 AM EDT ----- Message from Marleen Combs sent at 10/25/2023 11:38 AM EDT ----- Regarding: Orthopedics / Hand: Laceration (Cut) / Workers Compensation Case Orthopedics / Hand: Laceration (Cut) / Workers Compensation Case Patient has been identified by name and Date of (Y/N): Y Patient: Margot Hu Date of : 1970 Previous Provider Seen: NA Body Part(s) Identified: Rt Hand Diagnosis/Reason For Visit: Puncture Wound Reason for the call/escalation: [facility] Puncture wound occurred at work. If reason for call/escalation is discharge from ED/ER or Hospital, which facility was the patient seen at: na Was an appointment scheduled (Y/N): N-can not schedule worker's comp. Person calling if other than patient: pt Return call to if other than patient: pt Best contact number: [phone] Thank you, Marleen Combs October 25, 2023 11:39 AM documented in this encounterPark[facility]24 NoteHNO ID: [id number] Author: ANTONIO VIVAR APRN.GARMENT MANUFACTURER Service: ? Author Type: Nurse Practitioner Type: Progress Notes Filed: 10/25/2023 12:41 Note Text: Subjective HPI HPI Margot Hu is a 52 year old female who presents today for CC of right hand puncture. This started 1 hour ago. Has tried cleaning with soap/water/alcohol. Symptoms are worsened by rom. Unknown last tetanus. .Patient presents with: Trauma: BW-was at a pts home when lawn chair collapsed and a screw went through her R palm x 1 hr ago PAST MEDICAL HISTORY No date: Goiter No date: IBS (irritable bowel syndrome) No date: POTS (postural orthostatic tachycardia syndrome) No date: Raynaud's phenomenon PAST SURGICAL HISTORY No date: APPENDECTOMY 2004: ARTHROSCOPY KNEE DIAGNOSTIC W/WO SYNOVIAL BX SPX; Left Comment: Arthroscopy, knee 1996: DELIVERY ONLY 2016: ELBOW SURGERY HX; Left Comment: excission mass left elbow right ovary Mar 2012 : OOPHORECTOMY PARTIAL/TOTAL UNI/BI Comment: Mucinous cysadenoma 2009: PAST SURGICAL HISTORY OF; Right Comment: Gluteus medius tendon repair 2010: PAST SURGICAL HISTORY OF; Left Comment: Gluteus medius tendon repair 1987: TONSILLECTOMY HX ALLERGIES Sulfamethoxazole-Trimethoprim, Aleve [Naproxen], Bactrim [Sulfamethoxazole], Lactose Intolerance [Lactase], Midodrine, and Penicillins MEDICATIONS Estradiol (ZANDER) 0.0375 mg/24 hr Apply 1 Patch as directed two times a week. Biocidin Advanced Formula ([employer]) Take 5 Drops by mouth three times daily. A-EB/H6 (Bright White Formulas) Take 1-2 drops daily, increase to 10 drops per day as tolerated. Cortisol Masonry Installer 90 ct. ([employer]) Stress, blood sugar, thyroid/hormones/adrenals/sleep/energy/anxiety Take 1 in AM and 1 before bed Magnesium (Citrate) 150 mg (Pure Encapsulations) Take 4 capsules daily. TherBiotic Complete 120 Ct. (Klaire/Prothera) Take 1 capsule by mouth once daily. Vitamin D3 5000 U (Pure Encapsulations) Take 1 capsule by mouth daily with food. melatonin 1 mg tablet Take 1 mg by mouth daily at bedtime. MULTIVIT-MINERALS/FERROUS FUM (MULTI VITAMIN ORAL) Take by mouth once daily. ERGOCALCIFEROL, VITAMIN D2, (VITAMIN D ORAL) Take 1,000 Units by mouth once daily. VITAMIN B COMPLEX (B COMPLEX ORAL) Take 2 tablets by mouth once daily. FAMILY HISTORY Problem Relation Age of Onset other (htn) Father other (htn) Mother other (DM) Mother other (CLL) Maternal Aunt Ischemic Heart Disease Maternal Grandfather other (HOCM) Maternal Aunt Social History Tobacco Use Smoking status: Never Smokeless tobacco: Never Tobacco comments: No smoking in childhood or adult homes. Substance Use Topics Alcohol use: Yes Comment: Rarely. Drug use: No ROS Objective Blood pressure 127/86, pulse 69, temperature 36.9 ?C (98.4 ?F), resp. rate 18, weight 72 kg (158 lb 11.7 oz), last menstrual period 10/25/2023, SpO2 100%. Physical Exam Constitutional: General: She is not in acute distress. Appearance: She is not toxic-appearing or diaphoretic. HENT: Head: Normocephalic and atraumatic. Pulmonary: Effort: Pulmonary effort is normal. No accessory muscle usage or respiratory distress. Musculoskeletal: Hands: Neurological: Mental Status: She is alert and oriented to person, place, and time. ASSESSMENT/PLAN: 1. Foreign body of right hand, initial encounter - ICD9: 914.6, ICD10: S60.551A (primary diagnosis) Referred to ortho, appointment made 2. Injury of right hand, initial encounter - ICD9: 959.4, ICD10: S69.91XA Site covered Prophylactic atb ordered F/u for s/s infection. - XR HAND GENERAL 3V PA/LAT/OBL RIGHT IMPRESSION: Multiple tiny densities between the third and fourth metatarsal heads which could be due to foreign bodies Dictated by : MIKA PETE MD - CONSULT TO ORTHOPAEDICS - CEPHALEXIN 500 MG CAPSULE - MUPIROCIN 2 % TOPICAL OINTMENT 3. Need for tetanus booster - ICD9: V03.7, ICD10: Z23 - TDAP VACCINE, AGE 7+ YR (ADACEL, BOOSTRIX) Antonio Vivar APRN.[facility]08-01-2024 History of Present illness Narrative* Antonio Vivar APRN.GARMENT MANUFACTURER - 10/25/2023 11:12 AM EDT Images from the original note were not included. Subjective HPI HPI Margot Hu is a 52 year old female who presents today for CC of right hand puncture. Thisstarted 1 hour ago. Has tried cleaning with soap/water/alcohol. Symptoms are worsened by rom. Unknown last tetanus. .Patient presents with: Trauma: BWC-was at a pts home when lawn chair collapsed and a screw went through her R palm x 1 hr ago PAST MEDICAL HISTORY No date: Goiter No date: IBS (irritable bowel syndrome) No date: POTS (postural orthostatic tachycardia syndrome) No date: Raynaud's phenomenon PAST SURGICAL HISTORY No date: APPENDECTOMY 2004: ARTHROSCOPY KNEE DIAGNOSTIC W/WO SYNOVIAL BX SPX; Left Comment: Arthroscopy, knee 1996: DELIVERY ONLY 2016: ELBOW SURGERY HX; Left Comment: excission mass left elbow right ovary Mar 2012 : OOPHORECTOMY PARTIAL/TOTAL UNI/BI Comment: Mucinous cysadenoma 2009: PAST SURGICAL HISTORY OF; Right Comment: Gluteus medius tendon repair 2010: PAST SURGICAL HISTORY OF; Left Comment: Gluteus medius tendon repair 1987: TONSILLECTOMY HX ALLERGIES Sulfamethoxazole-Trimethoprim, Aleve [Naproxen], Bactrim [Sulfamethoxazole], Lactose Intolerance [Lactase], Midodrine, and Penicillins MEDICATIONS Estradiol (ZANDER) 0.0375 mg/24 hr Apply 1 Patch as directed two times a week. Biocidin Advanced Formula ([employer]) Take 5 Drops by mouth three times daily. A-EB/H6 (Bright White Formulas) Take 1-2 drops daily, increase to 10 drops per day as tolerated. Cortisol Masonry Installer 90 ct. ([employer]) Stress, blood sugar, thyroid/hormones/adrenals/sleep/energy/anxiety Take 1 in AM and 1 before bed Magnesium (Citrate) 150 mg (Pure Encapsulations) Take 4 capsules daily. TherBiotic Complete 120 Ct[address] (Klaire/Prothera) Take 1 capsule by mouth once daily. Vitamin D3 5000 U (Pure Encapsulations) Take 1 capsule by mouth daily with food. melatonin 1 mg tablet Take 1 mg by mouth daily at bedtime. MULTIVIT-MINERALS/FERROUS FUM (MULTI VITAMIN ORAL) Take by mouth once daily. ERGOCALCIFEROL, VITAMIN D2, (VITAMIN D ORAL) Take 1,000 Units by mouth once daily. VITAMIN B COMPLEX (B COMPLEX ORAL) Take 2 tablets by mouth once daily. FAMILY HISTORY Problem Relation Age of Onset other (htn) Father other (htn) Mother other (DM) Mother other (CLL) Maternal Aunt Ischemic Heart Disease Maternal Grandfather other (HOCM) Maternal Aunt Social History Tobacco Use Smoking status: Never Smokeless tobacco: Never Tobacco comments: No smoking in childhood or adult homes. Substance Use Topics Alcohol use: Yes Comment: Rarely. Drug use: No ROS Objective Blood pressure 127/86, pulse 69, temperature 36.9 C (98.4 F), resp. rate 18, weight 72 kg (158 lb 11.7 oz), last menstrual period 10/25/2023, SpO2 100%. Physical Exam Constitutional: General: She is not in acute distress. Appearance: She is not toxic-appearing or diaphoretic. HENT: Head: Normocephalic and atraumatic. Pulmonary: Effort: Pulmonary effort is normal. No accessory muscle usage or respiratory distress. Musculoskeletal: Hands: Neurological: Mental Status: She is alert and oriented to person, place, and time. ASSESSMENT/PLAN: 1. Foreign body of right hand, initial encounter - ICD9: 914.6, ICD10: S60.551A (primary diagnosis) Referred to ortho, appointment made 2. Injury of right hand, initial encounter - ICD9: 959.4, ICD10: S69.91XA Site covered Prophylactic atb ordered F/u for s/s infection. - XR HAND GENERAL 3V PA/LAT/OBL RIGHT IMPRESSION: Multiple tiny densities between the third and fourth metatarsal heads which could be due to foreign bodies Dictated by : MIKA PETE MD - CONSULT TO ORTHOPAEDICS - CEPHALEXIN 500 MG CAPSULE - MUPIROCIN 2 % TOPICAL OINTMENT 3. Need for tetanus booster - ICD9: V03.7, ICD10: Z23 - TDAP VACCINE, AGE 7+ YR (ADACEL, BOOSTRIX) Antonio Vivar APRN.GARMENT MANUFACTURER documented in this encounterPark[facility]24 History of Present illness Narrative* Tran Baron RT(R) - 10/25/2023 11:10 AM EDT Radiology Service Progress Note PATIENT NAME: Margot Hu DATE OF SERVICE: October 25, 2023 TIME: 11:07 AM PATIENT IDENTITY VERIFICATION COMPLETED USING TWO (2) IDENTIFIERS: Name and Date of confirmedby patient verbally. FALL SCREENING: Has the patient had 2 falls in the last year or 1 fall with injury or currently using an Ambulatory Assistive Device (Walker, Cane, Wheelchair, Crutches, etc.)? No PATIENT GENDER DATA: Female. status: : No status: NO. PATIENT RELEVANT IMPLANT DATA REVIEWED: Not Applicable PATIENT PRESENTS WITH AN IMPLANTABLE OR ATTACHED HAND PAINTER: No RADIOLOGY DEPARTMENT: General X-ray: Exam(s) Completed: Upper Extremity X- Ray(s): Hand, right PERIPHERAL IV DATA: Not applicable SIGNED BY: UZMA Diaz) October 25, 2023 11:07 AM documented in this encounterParkview Health [facility]08-[facility]-2024 NoteHNO ID: [id number] Author: TRAN BARON RT (R) Service: Radiology Author Type: Technologist Type: Progress Notes Filed: 10/25/2023 11:15 Note Text: Radiology Service Progress Note PATIENT NAME: Margot Hu DATE OF SERVICE: October 25, 2023 TIME: 11:07 AM PATIENT IDENTITY VERIFICATION COMPLETED USING TWO (2) IDENTIFIERS: Name and Date of confirmed by patient verbally. FALL SCREENING: Has the patient had 2 falls in the last year or 1 fall with injury or currently using an Ambulatory Assistive Device (Walker, Cane, Wheelchair, Crutches, etc.)? No PATIENT GENDER DATA: Female. status: : No status: NO. PATIENT RELEVANT IMPLANT DATA REVIEWED: Not Applicable PATIENT PRESENTS WITH AN IMPLANTABLE OR ATTACHED HAND PAINTER: No RADIOLOGY DEPARTMENT: General X-ray: Exam(s) Completed: Upper Extremity X-Ray(s): Hand, right PERIPHERAL IV DATA: Not applicable SIGNED BY: RT Emily(Maximilian) October 25, 2023 11:07 [facility]07-09-2024 Instructions* Patient Instructions* Tanika Alves DO - 10/02/2023 8:59 AM EDT Please note the following after treatment with Osteopathic Manipulative Treatment: 1. General aching can occur after manipulative treatment for 1-3 days. You may feel nauseous or unwell for a few hours after the treatment, please call if these symptoms persist for more than 24 hours. 2. Please drink an additional 8-16 ounces of water today. This will help reduce the chance of side effects. 3. Please do not engage in heavy lifting or other strenuous activity for 2 days. 4. Please call if you experience new numbness, weakness, or strong or sharp pain. This is not expected after manipulative treatment and should be evaluated. 5. Please minimize sugar, alcohol, and caffeine for the next 24 hours. Please eat a low-protein meal tonight to reduce nitrogen load on your kidneys. 6. Ensure you are getting adequate sleep; sleep is the time when your body does most of its healing. As a general rule, 7 hours of sleep per night is usually adequate. If you have any further questions or would like clarification on the above instructions, please call our office at [phone]. A message will be left with our physician staff and we will return your phone call as soon as possible. Please leave a current phone number to reach you back. If you need to cancel an appointment, it is important to make our office aware 24-48 hours before cancelling, for us to reschedule that appointment for you. You can call our appointment line at [phone] and press option number 1 to leave a message. Please leave a current phone number to reachyou back. documented in this encounterParkview Health [facility]07-09-2024 NoteHNO ID: [id number] Author: TANIKA ALVES DO Service: ? Author Type: Physician Type: Progress Notes Filed: 10/02/2023 09:15 Note Text: Osteopathic Neuromusculoskeletal Medicine Progress Note Name: Margot Hu Date of : 1970 PCP: Ama Hamilton MD Date of Exam: October 02, 2023 SUBJECTIVE Chief Complaint: This is Margot Hu, a 52 year old female who presents with Patient presents with: Back Pain AMB ROOMING INTAKE FLOWSHEET DATA Pain Pain Level: 2 Pain Location: Back Description: Aching Duration Amount of Time: 6 Duration Units: Years Frequency: Intermittent Intervention/Comfort measure: Exercise, Reposition, Relaxation History of Present Illness: Patient presents for follow-up. She reports that her lower back pain is doing quite well; she did have a flareup several days ago however it self resolved. She is not having any back pain at all today. However, she does direct attention to her right fourth finger which, in mid July 2023 she injured it while doing aerial yoga (the finger caught in the silk), bruising immediate onset of severe pain in that finger with any movement. Over time, it has gotten better, however it has remained radially deviated at the PIP and painful to move; she has not been able to take a manual blood pressure with her right hand (which is her dominant hand) due to the pain. Other concerns today include posterior left knee pain, which comes and goes and is presently mild to moderate in intensity; sometimes it feels like she is developing a Yepez's cyst, but she is usually able to pushed down. Her right IT band is tight and aching. There is some stiffness and tightness in the neck and upper back as well. These are chronic issues that are present intermittently. Medical, surgical, and family histories reviewed. Allergies and social history reviewed. Review of Systems Musculoskeletal: Positive for arthralgias, joint swelling, myalgias and neck pain. Negative for back pain, gait problem and neck stiffness. Neurological: Negative for dizziness, weakness, numbness and headaches. OBJECTIVE BP 105/63 Pulse 70 Temp (Src) 97.6 (Temporal) Wt 158 lb 15.2 oz (72.1kg) LMP 06/11/2017 Physical Exam Vitals and nursing note reviewed. Constitutional: General: She is not in acute distress. HENT: Head: Normocephalic and atraumatic. Pulmonary: Effort: Pulmonary effort is normal. Abdominal: General: There is no distension. Palpations: Abdomen is soft. Musculoskeletal: Cervical back: Neck supple. No pain with movement, spinous process tenderness or muscular tenderness. Decreased range of motion. Thoracic back: No spasms, tenderness or bony tenderness. Decreased range of motion. Lumbar back: No spasms, tenderness or bony tenderness. Decreased range of motion. Comments: Tenderness and slight radial deviation of the right fourth PIP. Minimal swelling. No swelling noted in the left knee today, though there is some muscle hypertonicity. Right IT band tender. Skin: General: Skin is warm and dry. Neurological: Mental Status: She is alert. Mental status is at baseline. Psychiatric: Mood and Affect: Mood normal. Somatic Dysfunction by Body Region: Head: Suboccipital hypertonicity; OA flexed, side bent right and rotated left Cervical: C3 and C6 bilaterally restricted; C4 flexed, rotated and side bent left Thoracic: Bilateral paraspinal hypertonicity; T2 extended, rotated and side bent left Lumbar: L4 extended, rotated and side bent right Pelvis: Left innominate posteriorly rotated Upper extremities: Right fourth PIP radially deviated Lower extremities: Left hamstrings and gastrocnemius hypertonicity; left tibia externally rotated; left fibular head posterior ASSESSMENT AND PLAN Finger pain, right (primary encounter diagnosis) It band syndrome, right Chronic pain of left knee Neck pain Somatic dysfunction of head region Somatic dysfunction of cervical region Somatic dysfunction of thoracic region Somatic dysfunction of lumbar region Somatic dysfunction of pelvis region Somatic dysfunction of lower extremity Somatic dysfunction of upper extremity Orders Placed This Encounter Osteopathic manipulative treatment (OMT) Order Comments: This order was created via procedure documentation Patient presents for follow-up, chief complaints today being pain in the right fourth finger, the left knee, the neck, and the right IT band. These chronic issues have responded well to OMT in the past. Finger pain specifically is acute, related to injury doing aerial yoga. Somatic dysfunction correlating with her symptoms was identified on exam today. OMT was performed today to improve function and reduce symptoms with good effect. See procedure note below. Return in about 6 weeks (around 11/13/2023). >50% of time spent on the date of service was dedicated to preparing to see (more content not included)...[facility]07-09-2024 History of Present illness Narrative* Tanika Alves DO - 10/02/2023 8:27 AM EDTAssociated Order(s): Osteopathic manipulative treatment (OMT) Post-Procedure Diagnose(s): Neck pain; Somatic dysfunction of cervical region; Somatic dysfunction of thoracic region; Somatic dysfunction of lumbar region; Somatic dysfunction of pelvis region; Finger pain, right; Somatic dysfunction of lower extremity; Chronic pain of left knee; It band syndrome,right; Somatic dysfunction of head region; Somatic dysfunction of upper extremity Images from the original note were not included. Osteopathic Neuromusculoskeletal Medicine Progress Note Name: Margot Hu Date of : 1970 PCP: Ama Hamilton MD Date of Exam: October 02, 2023 SUBJECTIVE Chief Complaint: This is Margot Hu, a 52 year old female who presents with Patient presents with: Back Pain AMB ROOMING INTAKE FLOWSHEET DATA Pain Pain Level: 2 Pain Location: Back Description: Aching Duration Amount of Time: 6 Duration Units: Years Frequency: Intermittent Intervention/Comfort measure: Exercise, Reposition, Relaxation History of Present Illness: Patient presents for follow-up. She reports that her lower back pain is doing quite well; she did have a flareup several days ago however it self resolved. She is not having any back pain at all today. However, she does direct attention to her right fourth finger which, in mid July 2023 she injured it while doing aerial yoga (the finger caught in the silk), bruising immediate onset of severe pain in that finger with any movement. Over time, it has gotten better, however it has remained radially deviated at the PIP and painful to move; she has not been able to take a manual blood pressure with her right hand (which is her dominant hand) due to the pain. Other concerns today include posterior left knee pain, which comes and goes and is presently mild to moderate in intensity; sometimes it feels like she is developing a Yepez's cyst, but she is usually able to pushed down. Her right IT band is tight and aching. There is some stiffness and tightness in the neck and upper back as well. These are chronic issues that are present intermittently. Medical, surgical, and family histories reviewed. Allergies and social history reviewed. Review of Systems Musculoskeletal: Positive for arthralgias, joint swelling, myalgias and neck pain. Negative for back pain, gait problem and neck stiffness. Neurological: Negative for dizziness, weakness, numbness and headaches. OBJECTIVE BP 105/63 Pulse 70 Temp (Src) 97.6 (Temporal) Wt 158 lb 15.2 oz (72.1kg) LMP 06/11/2017 Physical Exam Vitals and nursing note reviewed. Constitutional: General: She is not in acute distress. HENT: Head: Normocephalic and atraumatic. Pulmonary: Effort: Pulmonary effort is normal. Abdominal: General: There is no distension. Palpations: Abdomen is soft. Musculoskeletal: Cervical back: Neck supple. No pain with movement, spinous process tenderness or muscular tenderness. Decreased range of motion. Thoracic back: No spasms, tenderness or bony tenderness. Decreased range of motion. Lumbar back: No spasms, tenderness or bony tenderness. Decreased range of motion. Comments: Tenderness and slight radial deviation of the right fourth PIP. Minimal swelling. No swelling noted in the left knee today, though there is some muscle hypertonicity. Right IT band tender. Skin: General: Skin is warm and dry. Neurological: Mental Status: She is alert. Mental status is at baseline. Psychiatric: Mood and Affect: Mood normal. Somatic Dysfunction by Body Region: Head: Suboccipital hypertonicity; OA flexed, side bent right and rotated left Cervical: C3 and C6 bilaterally restricted; C4 flexed, rotated and side bent left Thoracic: Bilateral paraspinal hypertonicity; T2 extended, rotated and side bent left Lumbar: L4 extended, rotated and side bent right Pelvis: Left innominate posteriorly rotated Upper extremities: Right fourth PIP radially deviated Lower extremities: Left hamstrings and gastrocnemius hypertonicity; left tibia externally rotated; left fibular head posterior ASSESSMENT & PLAN Finger pain, right (primary encounter diagnosis) It band syndrome, right Chronic pain of left knee Neck pain Somatic dysfunction of head region Somatic dysfunction of cervical region Somatic dysfunction of thoracic region Somatic dysfunction of lumbar region Somatic dysfunction of pelvis region Somatic dysfunction of lower extremity Somatic dysfunction of upper extremity Orders Placed This Encounter Osteopathic manipulative treatment (OMT) Order Comments: This order was created via procedure documentation Patient presents for follow-up, chief complaints today being pain in the right fourth finger, the left knee, the neck, and the right IT band. These chronic issues have responded well to OMT in the past. Finger pain specifically is acute, related to injury doing aerial yoga. Somatic dysfunction correlating with her symptoms was identified on exam today. OMT was performed today to improve function and reduce symptoms with good effect. See procedure note below. Return in about 6 weeks (around 11/13/2023). >50% of time spent on the date of service was dedicated to preparing to see the patient, [id number] patient care, completing clinical documentation, obtaining and/or reviewing separately obtained history, performing a medically appropriate examination, and counseling and educating the patient/f amily/caregiver. This note was partially generated using voice recognition software. It has been reviewed for typographical errors, however some may remain. Any questions regarding meaning or word use should be directed to the author. Tanika Alves DO 8:30 AM 10/02/2023 Procedure Osteopathic manipulative treatment (OMT) Time/Date:10/02/2023 9:09 AM Informed Consent Consent Obtained: Verbal [facility]worth Protocol SIGN IN Special Equipment: N/A Patient/Surrogate Stated/Verified: Patient name, Date of and Intended procedure TIME OUT Intended patient and procedure match the source document(s). Consent documented and matches the intended procedure. Consent Obtained:Verbal Body Regions: Head, Cervical, Thoracic, Lumbar, Pelvis, Upper Extremities and Lower Extremities Head Technique: balanced ligamentous tension, suboccipital release Cervical Technique: articulatory, facilitated positional release Thoracic Technique: balanced ligamentous tension, progressive inhibition of neuromusculoskeletal structures Lumbar Technique: balanced ligamentous tension Pelvis Technique: facilitated positional release Upper Extremeties Technique: articulatory Lower Extremities Technique:balanced ligamentous tension, progressive inhibition of neuromusculoskeletal structures Number of Body Regions: 7- 8 Disposition: Osteopathic manipulation tolerated well, reports subjective and objective improvement, improvement in range of motion and mechanics, instructed to increase hydration for the next 24 hours and instructed to follow up if symptoms worsen or fail to improve documented in this encounterPark[facility] NotePap Smear Specimen AdequacyMay 2023 2:00pmComment.Satisfactory for evaluation. Endocervical and/or squamous metaplasticcells (endocervical component)are present.[facility] INTER[facility]ACED A#[id number] Health Kings Mills HospitalComment on above:Satisfactory for evaluation. Endocervical and/or squamous metaplasticcells (endocervical component)are present.07-25-2023 Instructions* Patient Instructions* Tanika Alves DO - 07/25/2023 8:54 AM EDT Please note the following after treatment with Osteopathic Manipulative Treatment: 1. General aching can occur after manipulative treatment for 1-3 days. You may feel nauseous or unwell for a few hours after the treatment, please call if these symptoms persist for more than 24 hours. 2. Please drink an additional 8-16 ounces of water today. This will help reduce the chance of side effects. 3. Please do not engage in heavy lifting or other strenuous activity for 2 days. 4. Please call if you experience new numbness, weakness, or strong or sharp pain. This is not expected after manipulative treatment and should be evaluated. 5. Please minimize sugar, alcohol, and caffeine for the next 24 hours. Please eat a low-protein meal tonight to reduce nitrogen load on your kidneys. 6. Ensure you are getting adequate sleep; sleep is the time when your body does most of its healing. As a general rule, 7 hours of sleep per night is usually adequate. If you have any further questions or would like clarification on the above instructions, please call our office at [phone]. A message will be left with our physician staff and we will return your phone call as soon as possible. Please leave a current phone number to reach you back. If you need to cancel an appointment, it is important to make our office aware 24-48 hours before cancelling, for us to reschedule that appointment for you. You can call our appointment line at [phone] and press option number 1 to leave a message. Please leave a current phone number to reachyou back. documented in this encounterPark[facility]05-01-2024 History of Present illness Narrative* Tanika Alves DO - 07/25/2023 8:31 AM EDTAssociated Order(s): Osteopathic manipulative treatment (OMT) Post-Procedure Diagnose(s): Neck pain; Somatic dysfunction of cervical region; Somatic dysfunction of thoracic region; Somatic dysfunction of lumbar region; Somatic dysfunction of sacral region; Somatic dysfunction of pelvis region; Chronic right SI joint pain; Somatic dysfunction of lower extremity; Somatic dysfunction of head region Images from the original note were not included. Osteopathic Neuromusculoskeletal Medicine Progress Note Name: Margot Hu Date of : 1970 PCP: Ama Hamilton MD Date of Exam: July 25, 2023 SUBJECTIVE Chief Complaint: This is Margot Hu, a 52 year old female who presents with Patient presents with: si pain AMB ROOMING INTAKE FLOWSHEET DATA Pain Pain Level: 2 Pain Location: Buttocks-Right Description: Aching Duration Units: Months Frequency: Intermittent Intervention/Comfort measure: Reposition, Relaxation, Positioning History of Present Illness: Patient presents for follow-up of chronic low back/SI joint pain, as well as neck pain. She is overall doing fairly well; SI joint pain has largely been fairly well-controlled after completion of physical therapy several weeks ago. She has had a couple of flares here and there, generally not lasting more than a few hours. However, about a week ago, she had a particularly bad flare that lasted fora few days before fading. Currently, she has pain in the right SI joint and notes that her entire pelvis feels tight, and mobile. There is also intermittent pains along the sides of her legs consistent with previous diagnoses of IT band syndrome. Her neck is doing fairly well at the moment with only mild aching at the base of the neck. Medical, surgical, and family histories reviewed. Allergies and social history reviewed. Review of Systems Musculoskeletal: Positive for back pain, myalgias and neck pain. Negative for arthralgias, gait problem and neck stiffness. Neurological: Negative for dizziness, weakness, numbness and headaches. OBJECTIVE BP 123/66 Pulse 61 Temp (Src) 96.6 (Temporal) Wt 162 lb (73.5kg) LMP 06/11/2017 Physical Exam Vitals and nursing note reviewed. Constitutional: General: She is not in acute distress. HENT: Head: Normocephalic and atraumatic. Pulmonary: Effort: Pulmonary effort is normal. Abdominal: General: There is no distension. Palpations: Abdomen is soft. Musculoskeletal: Cervical back: Neck supple. No pain with movement, spinous process tenderness or muscular tenderness. Decreased range of motion. Thoracic back: No spasms, tenderness or bony tenderness. Decreased range of motion. Lumbar back: No spasms, tenderness or bony tenderness. Decreased range of motion. Skin: General: Skin is warm and dry. Neurological: Mental Status: She is alert. Mental status is at baseline. Psychiatric: Mood and Affect: Mood normal. Somatic Dysfunction by Body Region: Head: OA flexed, side bent right rotated left Cervical: C3 and C5 flexed, rotated sidebent left Thoracic: T2 flexed, rotated and side bent left; T6 extended, rotated and side bent left; bilateralparaspinal hypertonicity Lumbar: L4 flexed, rotated sidebent right Sacral: Left SI joint tight; left sacral base posterior Pelvis: Bilateral innominates restricted Lower extremities: Right greater trochanter counterstrain point ASSESSMENT & PLAN Chronic right si joint pain (primary encounter diagnosis) Neck pain Somatic dysfunction of head region Somatic dysfunction of cervical region Somatic dysfunction of thoracic region Somatic dysfunction of lumbar region Somatic dysfunction of sacral region Somatic dysfunction of pelvis region Somatic dysfunction of lower extremity Orders Placed This Encounter Osteopathic manipulative treatment (OMT) Order Comments: This order was created via procedure documentation Patient presents for follow-up of chronic SI joint pain, low back pain, neck pain. Recently completed physical therapy which was very helpful for her low back pain and gluteal tendinopathy. Overall, she does seem much improved compared to earlier this year. Somatic dysfunction correlating with her symptoms was identified on exam today. OMT was performed today to improve function and reduce symptoms with good effect. See procedure note below. Return in about 8 weeks (around 09/19/2023). >50% of time spent on the date of service was dedicated to preparing to see the patient, [id number] patient care, completing clinical documentation, obtaining and/or reviewing separately obtained history, performing a medically appropriate examination, and counseling and educating the patient/f amily/caregiver. This note was partially generated using voice recognition software. It has been reviewed for typographical errors, however some may remain. Any questions regarding meaning or word use should be directed to the author. Tanika Alves DO 8:31 AM 07/25/2023 Procedure Osteopathic manipulative treatment (OMT) Time/Date:07/25/2023 8:58 AM Informed Consent Consent Obtained: Verbal Acworth Protocol SIGN IN Special Equipment: N/A Patient/Surrogate Stated/Verified: Patient name, Date of and Intended procedure TIME OUT Intended patient and procedure match the source document(s). Consent documented and matches the intended procedure. Consent Obtained:Verbal Body Regions: Head, Cervical, Thoracic, Lumbar, Sacrum, Pelvis and Lower Extremities Head Technique: balanced ligamentous tension Cervical Technique: balanced ligamentous tension Thoracic Technique: balanced ligamentous tension, facilitated positional release, progressive inhibition of neuromusculoskeletal structures Lumbar Technique: balanced ligamentous tension Sacrum Technique: balanced ligamentous tension Pelvis Technique: myofascial release Lower Extremities Technique:counterstrain Number of Body Regions: 7- 8 Disposition: Osteopathic manipulation tolerated well, reports subjective and objective improvement, improvement in range of motion and mechanics, instructed to increase hydration for the next 24 hours and instructed to follow up if symptoms worsen or fail to improve documented in this encounterPark[facility]03-18-2024 Discharge summary Author Letty Long [facility] June 11, 2023 9:07am Note Date/Time June 11, 2023 9:0 7am [facility] Physical [facility] [address] [place] [address] [address] [place] [address] / REHABILITATION SERVICES DISCHARGE SUMMARY MR#: [id number] Acct: [id number] Name: MARGOT HU Rep #: [id number] : 1970 52 From: Letty Gore Referring DrSilverio: Status: REG RCR Insurance: [facility] SELF PAY INSURANCE Discharge Summary D/C summary: It has been my pleasure to treat MARGOT HU referred by HIREN HYLTON, with the diagnosis of Trochanteric bursitis for a total of 19 visit(s). Discharge Date: 06/11/23 Please see the following information for a summary of their discharge status. Subjective Subjective: Pt reports that she is better. Her Raynaud's is bad today. After last Sunday she had no pain for numerous days. She tried hiking again yesterdayand longer strides still bothered her for 45 min. Pain R Glut pain: Pain Intensity (Out of 10): 0 L Glut pain: Pain Intensity (Out of 10): 0 R SI pain: Pain Intensity (Out of 10): 0 R IT band: Pain Intensity (Out of 10): 0 Overall Improvement % Improvement: 85 Objective Objective/Function: R hip ext 21 and L 18.5 Goals Goal 1:: I HEP Goal Progress: Goal Met Goal 2:: Increase B hip ext strength (at the time of the eval: R hip ext 21 andL 14) Goal Progress: Goal Met Goal 3:: Be able to walk with longer strides without pain (pain with hip ext) Goal Progress: Progressing Goal 4:: Increase R piriformis and IT band muscle length Goal Progress: Progressing Goal 5:: Decrease pain by 50% Goal Progress: Goal Met Plan Plan: 2X/ week for additional 3 weeks for R hip piriformis stretching, IT band stretching, hip ext and hip rotator strength, Core stability for SI, US, MT and possible try needling, with HEP D/C Information Discharge Comments: Discharge d/c sentence: If there are questions or concerns regarding this patient's physical therapy, please feel free to call me at [phone]. Thank you for the referral of thispatient. Sincerely, Letty Long, ANURAG Balance/Gait/Functional tests Balance/Special Test Scores Lower Extremity Functional Score: 77 Improvement % Improvement: 85 <Electronically signed by Letty Long MPT> 06/11/23 0907 CC: Dr. Ama Hamilton MD; HIREN HYLTON ~ Signed [facility] Work Phone: 1(566) 905-609402-21-2024 Instructions* Patient Instructions* Tanika Alves, - 05/16/2023 10:00 AM EST Please note the following after treatment with Osteopathic Manipulative Treatment: 1. General aching can occur after manipulative treatment for 1-3 days. You may feel nauseous or unwell for a few hours after the treatment, please call if these symptoms persist for more than 24 hours. 2. Please drink an additional 8-16 ounces of water today. This will help reduce the chance of side effects. 3. Please do not engage in heavy lifting or other strenuous activity for 2 days. 4. Please call if you experience new numbness, weakness, or strong or sharp pain. This is not expected after manipulative treatment and should be evaluated. 5. Please minimize sugar, alcohol, and caffeine for the next 24 hours. Please eat a low-protein meal tonight to reduce nitrogen load on your kidneys. 6. Ensure you are getting adequate sleep; sleep is the time when your body does most of its healing. As a general rule, 7 hours of sleep per night is usually adequate. If you have any further questions or would like clarification on the above instructions, please call our office at [phone]. A message will be left with our physician staff and we will return your phone call as soon as possible. Please leave a current phone number to reach you back. If you need to cancel an appointment, it is important to make our office aware 24-48 hours before cancelling, for us to reschedule that appointment for you. You can call our appointment line at [phone] and press option number 1 to leave a message. Please leave a current phone number to reachyou back. documented in this encounterPark[facility]02-[facility] History of Present illness Narrative* Tanika Alves DO - 05/16/2023 9:29 AM ESTAssociated Order(s): Osteopathic manipulative treatment (OMT) Post-Procedure Diagnose(s): Neck pain; Somatic dysfunction of cervical region; Somatic dysfunction of thoracic region; Somatic dysfunction of lumbar region; Somatic dysfunction of sacral region; Somatic dysfunction of pelvis region; Left arm pain; Somatic dysfunction of lower extremity; It band syndrome, right; Somatic dysfunction of upper extremity; Tendinopathy of gluteus medius Images from the original note were not included. Osteopathic Neuromusculoskeletal Medicine Progress Note Name: Margot Hu Date of : 1970 PCP: Ama Hamilton MD Date of Exam: May 16, 2023 SUBJECTIVE Chief Complaint: This is Margot Hu, a 52 year old female who presents with Patient presents with: si joint pain: right AMB ROOMING INTAKE FLOWSHEET DATA Pain Pain Level: 2 Pain Location: Buttocks-Right Description: Aching Duration Units: Years Frequency: Intermittent Intervention/Comfort measure: Reposition, Relaxation, Cold, Heat, Exercise History of Present Illness: Patient presents for follow-up of chronic right SI joint pain. She is still in physical therapy forher deep gluteal syndrome which is much improved now. PT should be finished within a week or 2. They have been doing some dry needling for the past couple of sessions which has also been helpful, however she notes that her last session earlier this week dry needling was applied to the right IT bandwhere there was a painful knot. This knot has been intermittently present for about 27 years, onsetafter a nurse gave her a shot of Demerol in that spot for postoperative pain (). In addition, which patient has been experiencing for the past couple of weeks a sensation of something touching the top of her right second toe. There is no actual pain with this or restriction of movement; she does not recall any injury or trauma to the toe or foot. It feels like there is a string sitting on top of her foot. Finally, there is an aching pain that is been present for the past couple of weeks in the lateral aspect of her left arm. She has not been able to identify any triggers, injury relating to it; it is intermittent with random onset. It feels like a line of aching tightness, dissimilar from previous episodes of lateral epicondylitis. Previously noted neck pain is resolved. Medical, surgical, and family histories reviewed. Allergies and social history reviewed. Review of Systems Musculoskeletal: Positive for back pain, myalgias and neck pain. Negative for arthralgias, gait problem and neck stiffness. Neurological: Negative for dizziness, weakness, numbness and headaches. OBJECTIVE BP 108/68 Pulse 65 Temp (Src) 97.2 (Temporal) Resp 18 Wt 159 lb (72.1kg) LMP 06/11/2017 Physical Exam Vitals and nursing note reviewed. Constitutional: General: She is not in acute distress. HENT: Head: Normocephalic and atraumatic. Pulmonary: Effort: Pulmonary effort is normal. Abdominal: General: There is no distension. Palpations: Abdomen is soft. Musculoskeletal: Cervical back: Neck supple. No pain with movement, spinous process tenderness or muscular tenderness. Decreased range of motion. Thoracic back: No spasms, tenderness or bony tenderness. Normal range of motion. Lumbar back: No spasms, tenderness or bony tenderness. Decreased range of motion. Skin: General: Skin is warm and dry. Neurological: Mental Status: She is alert. Mental status is at baseline. Psychiatric: Mood and Affect: Mood normal. Somatic Dysfunction by Body Region: Cervical: C4 extended, rotated and side bent right Thoracic: Thoracic inlet restricted; T2 extended, rotated and side bent right Lumbar: L3-L5 neutral, sidebent right rotated left Sacral: Right SI joint tight Pelvis: Right innominate anteriorly rotated Upper extremities: Trigger band over the lateral aspect of the left upper arm Lower extremities: Tension in the right IT band; restriction in the right second toe PIP, MTP; sometightness in the right tarsal bones ASSESSMENT & PLAN Neck pain (primary encounter diagnosis) Tendinopathy of gluteus medius It band syndrome, right Left arm pain Somatic dysfunction of cervical region Somatic dysfunction of thoracic region Somatic dysfunction of lumbar region Somatic dysfunction of sacral region Somatic dysfunction of pelvis region Somatic dysfunction of lower extremity Somatic dysfunction of upper extremity Orders Placed This Encounter Osteopathic manipulative treatment (OMT) Order Comments: This order was created via procedure documentation Patient presents for follow-up of chronic right SI and gluteal pain 2/2 gluteal syndrome. Also presenting with right IT band pain, foreign body sensation on the surface of her right second toe, and nonspecific pain in the left upper arm. Somatic dysfunction correlating with all of her symptoms was identified on exam today. OMT was performed today to improve function and reduce symptoms with good effect. See procedure note below. Return in about 4 weeks (around 06/13/2023). >50% of time spent on the date of service was dedicated to preparing to see the patient, [id number] patient care, completing clinical documentation, obtaining and/or reviewing separately obtained history, performing a medically appropriate examination, and counseling and educating the patient/f amily/caregiver. This note was partially generated using voice recognition software. It has been reviewed for typographical errors, however some may remain. Any questions regarding meaning or word use should be directed to the author. Tanika Alves DO 9:30 AM 05/16/2023 Procedure Osteopathic manipulative treatment (OMT) Time/Date:05/16/2023 10:03 AM Informed Consent Consent Obtained: Verbal Acworth Protocol SIGN IN Special Equipment: N/A Patient/Surrogate Stated/Verified: Patient name, Date of and Intended procedure TIME OUT Intended patient and procedure match the source document(s). Consent documented and matches the intended procedure. Consent Obtained:Verbal Body Regions: Cervical, Thoracic, Lumbar, Sacrum, Pelvis, Upper Extremities and Lower Extremities Cervical Technique: muscle energy Thoracic Technique: facilitated positional release, myofascial release Lumbar Technique: myofascial release Sacrum Technique: facilitated positional release Pelvis Technique: facilitated positional release Upper Extremeties Technique: facial distortion model Lower Extremities Technique:balanced ligamentous tension, myofascial release Number of Body Regions: 7- 8 Disposition: Osteopathic manipulation tolerated well, reports subjective and objective improvement, improvement in range of motion and mechanics, instructed to increase hydration for the next 24 hours and instructed to follow up if symptoms worsen or fail to improve documented in this encounterPark[facility]12-12-2023 Instructions* Patient Instructions* Tanika Alves DO - 03/06/2023 12:08 PM EST Please note the following after treatment with Osteopathic Manipulative Treatment: 1. General aching can occur after manipulative treatment for 1-3 days. You may feel nauseous or unwell for a few hours after the treatment, please call if these symptoms persist for more than 24 hours. 2. Please drink an additional 8-16 ounces of water today. This will help reduce the chance of side effects. 3. Please do not engage in heavy lifting or other strenuous activity for 2 days. 4. Please call if you experience new numbness, weakness, or strong or sharp pain. This is not expected after manipulative treatment and should be evaluated. 5. Please minimize sugar, alcohol, and caffeine for the next 24 hours. Please eat a low-protein meal tonight to reduce nitrogen load on your kidneys. 6. Ensure you are getting adequate sleep; sleep is the time when your body does most of its healing. As a general rule, 7 hours of sleep per night is usually adequate. If you have any further questions or would like clarification on the above instructions, please call our office at [phone]. A message will be left with our physician staff and we will return your phone call as soon as possible. Please leave a current phone number to reach you back. If you need to cancel an appointment, it is important to make our office aware 24-48 hours before cancelling, for us to reschedule that appointment for you. You can call our appointment line at [phone] and press option number 1 to leave a message. Please leave a current phone number to reachyou back. documented in this encounterPark[facility]12-12-2023 History of Present illness Narrative* Tanika Alves DO - 03/06/2023 11:36 AM ESTAssociated Order(s): Osteopathic manipulative treatment (OMT) Post-Procedure Diagnose(s): Somatic dysfunction of thoracic region; Somatic dysfunction of lumbar region; Somatic dysfunction of sacral region; Somatic dysfunction of pelvis region; Chronic right SI joint pain; Somatic dysfunction of lower extremity; Tendinopathy of gluteus medius Images from the original note were not included. Osteopathic Neuromusculoskeletal Medicine Progress Note Name: Margot Hu Date of : 1970 PCP: Ama Hamilton MD Date of Exam: March 06, 2023 SUBJECTIVE Chief Complaint: This is Margot Hu, a 52 year old female who presents with Patient presents with: Back Pain History of Present Illness: Patient presents for follow-up of low back pain. After last osteopathic manipulative treatment she was doing quite well for several weeks with her pain fading to nearly 0/10. Then, 3 days ago when a cold front went through her symptoms returned, worse than before. This is not the pain in her SI joints about the pain in her right gluteus medius. It does feel little bit different, more posterior tothe greater trochanter rather than right on it, and radiating down the lateral aspect of the right leg. There is no new injury, trauma. Hip extension in particular seems to make it worse. Oral diclofenac does seem to help. Medical, surgical, and family histories reviewed. Allergies and social history reviewed. Review of Systems Constitutional: Negative for chills, fatigue and fever. Respiratory: Negative for cough and shortness of breath. Cardiovascular: Negative for chest pain. Musculoskeletal: Positive for back pain, gait problem and myalgias. Negative for arthralgias, neck pain and neck stiffness. Neurological: Negative for dizziness, weakness, numbness and headaches. OBJECTIVE BP 121/80 Pulse 73 Temp (Src) 97 (Temporal) Resp 17 Wt 159 lb (72.1kg) LMP 06/11/2017 Physical Exam Vitals and nursing note reviewed. Constitutional: General: She is not in acute distress. HENT: Head: Normocephalic and atraumatic. Pulmonary: Effort: Pulmonary effort is normal. Abdominal: General: There is no distension. Palpations: Abdomen is soft. Musculoskeletal: Cervical back: Neck supple. No pain with movement, spinous process tenderness or muscular tenderness. Normal range of motion. Thoracic back: No spasms, tenderness or bony tenderness. Decreased range of motion. Lumbar back: No spasms, tenderness or bony tenderness. Decreased range of motion. Comments: Multiple muscles over the right hemipelvis are hypertonic. There is tenderness just posterior to the right greater trochanter and down the IT band along its posterior aspect which has a boggy texture. Skin: General: Skin is warm and dry. Neurological: Mental Status: She is alert. Mental status is at baseline. Psychiatric: Mood and Affect: Mood normal. 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 for pain. Dispense: 30 tablet Refill: 0 Patient presenting for reflareup of pain from tendinopathy of the right gluteus medius. Notably, however, several other structures other than the gluteus medius appear to be hypertonic, tender, inflamed. OMT was performed today to improve function and reduce symptoms with good effect. See procedurenote below. Will also provide a refill of diclofenac 75 mg p.o. as needed. Return in about 3 weeks (around 03/27/2023). >50% of time spent on the date of service was dedicated to preparing to see the patient, [id number] patient care, completing clinical documentation, obtaining and/or reviewing separately obtained history, performing a medically appropriate examination, and counseling and educating the patient/f amily/caregiver. This note was partially generated using voice recognition software. It has been reviewed for typographical errors, however some may remain. Any questions regarding meaning or word use should be directed to the author. Tanika Alves DO 11:36 AM 03/06/2023 Procedure Osteopathic manipulative treatment (OMT) Time/Date:03/06/2023 12:11 PM Informed Consent Consent Obtained: Verbal Acworth Protocol SIGN IN Special Equipment: N/A Patient/Surrogate Stated/Verified: Patient name, Date of and Intended procedure TIME OUT Intended patient and procedure match the source document(s). Consent documented and matches the intended procedure. Consent Obtained:Verbal Body Regions: Thoracic, Lumbar, Sacrum, Pelvis and Lower Extremities Thoracic Technique: facilitated positional release Lumbar Technique: facilitated positional release, myofascial release Sacrum Technique: balanced ligamentous tension, myofascial release Pelvis Technique: balanced ligamentous tension, myofascial release Lower Extremities Technique:balanced ligamentous tension, lymphatic, myofascial release, soft tissue Number of Body Regions: 5- 6 Disposition: Osteopathic manipulation tolerated well, reports subjective and objective improvement, improvement in range of motion and mechanics, instructed to increase hydration for the next 24 hours and instructed to follow up if symptoms worsen or fail to improve [facility]* Patient Instructions* Tanika Alves DO - 01/24/2023 11:32 AM EDT Please note the following after treatment with Osteopathic Manipulative Treatment: 1. General aching can occur after manipulative treatment for 1-3 days. You may feel nauseous or unwell for a few hours after the treatment, please call if these symptoms persist for more than 24 hours. 2. Please drink an additional 8-16 ounces of water today. This will help reduce the chance of side effects. 3. Please do not engage in heavy lifting or other strenuous activity for 2 days. 4. Please call if you experience new numbness, weakness, or strong or sharp pain. This is not expected after manipulative treatment and should be evaluated. 5. Please minimize sugar, alcohol, and caffeine for the next 24 hours. Please eat a low-protein meal tonight to reduce nitrogen load on your kidneys. 6. Ensure you are getting adequate sleep; sleep is the time when your body does most of its healing. As a general rule, 7 hours of sleep per night is usually adequate. If you have any further questions or would like clarification on the above instructions, please call our office at [phone]. A message will be left with our physician staff and we will return your phone call as soon as possible. Please leave a current phone number to reach you back. If you need to cancel an appointment, it is important to make our office aware 24-48 hours before cancelling, for us to reschedule that appointment for you. You can call our appointment line at [phone] and press option number 1 to leave a message. Please leave a current phone number to reachyou back. documented in this [facility] History of Present illness Narrative* Tanika Alves DO - 01/24/2023 11:02 AM EDTAssociated Order(s): Osteopathic manipulative treatment (OMT) Post-Procedure Diagnose(s): Chronic right shoulder pain; Chronic right SI joint pain; Somatic dysfunction of head region; Somatic dysfunction of thoracic region; Somatic dysfunction of lumbar region;Somatic dysfunction of sacral region; Somatic dysfunction of pelvis region; Somatic dysfunction of upper extremity Images from the original note were not included. Osteopathic Neuromusculoskeletal Medicine Progress Note Name: Margot Hu Date of : 1970 PCP: Ama Hamilton MD Date of Exam: January 24, 2023 SUBJECTIVE Chief Complaint: This is Margot Hu, a 52 year old female who presents with Patient presents with: SI pain History of Present Illness: Patient presents for follow-up of chronic SI joint pain. She continues to derive benefit from osteopathic manipulative treatment, however it only seems to last for a couple of weeks of varying lengths. There was no particular injury or trauma associated with this current episode; this started a couple of weeks after her last treatment. It seems that, throughout the course of the day, it graduallygets worse. It is not, however, affecting her gait at this time. She also continues to have pain in the posterior aspect of her right shoulder, worse when she lays on it (she usually sleeps on that side), or when she adducts her arm across her body. It feels like that shoulder is less stable than the left. Her neck and upper back pain are doing well, however. Medical, surgical, and family histories reviewed. Allergies and social history reviewed. Review of Systems Constitutional: Negative for chills, fatigue and fever. Respiratory: Negative for cough and shortness of breath. Cardiovascular: Negative for chest pain. Musculoskeletal: Positive for arthralgias and back pain. Negative for gait problem, myalgias, neck pain and neck stiffness. Neurological: Negative for dizziness, weakness, numbness and headaches. OBJECTIVE BP 105/70 Pulse 67 Resp 12 Wt 157 lb (71.2kg) LMP 06/11/2017 Physical Exam Vitals and nursing note reviewed. Constitutional: General: She is not in acute distress. HENT: Head: Normocephalic and atraumatic. Pulmonary: Effort: Pulmonary effort is normal. Abdominal: General: There is no distension. Palpations: Abdomen is soft. Musculoskeletal: Right shoulder: Tenderness present. No bony tenderness. Decreased range of motion. Normal strength. Left shoulder: Normal. Cervical back: Neck supple. No pain with movement, spinous process tenderness or muscular tenderness. Normal range of motion. Thoracic back: No spasms, tenderness or bony tenderness. Decreased range of motion. Lumbar back: No spasms, tenderness or bony tenderness. Decreased range of motion. Comments: Mild tightness over the right SI joint with restriction at about the midpoint of the joint. Skin: General: Skin is warm and dry. Neurological: Mental Status: She is alert. Mental status is at baseline. Psychiatric: Mood and Affect: Mood normal. Somatic Dysfunction by Body Region: Head: Suboccipital hypertonicity Thoracic: Thoracic inlet flexed, sidebent left rotated right Lumbar: L2-L4 neutral, sidebent left rotated right; L5 flexed, rotated sidebent right Sacral: Right SI joint restriction with right on right torsion Pelvis: Right innominate anteriorly rotated, slightly out flared Upper extremities: Trigger band with central herniated trigger points involving the posterior aspect of the right shoulder ASSESSMENT & PLAN Chronic right shoulder pain (primary encounter diagnosis) Chronic right si joint pain Somatic dysfunction of head region Somatic dysfunction of thoracic region Somatic dysfunction of lumbar region Somatic dysfunction of sacral region Somatic dysfunction of pelvis region Somatic dysfunction of upper extremity Orders Placed This Encounter Osteopathic manipulative treatment (OMT) Order Comments: This order was created via procedure documentation Patient presents with SI joint pain and left shoulder pain. SI joint pain has treated well with OMTin the past, however various treatment modalities have yet to achieve a lasting relief. The right shoulder pain appears to be directly related to a herniated trigger point with associated trigger band. OMT was performed today to improve function and reduce symptoms with good effect. See procedure note below. Different modalities were used today, particularly using [place] percussion. We will reassess efficacy of this particular treatment modality at next visit. Return in about 3 weeks (around 02/14/2023). >50% of time spent on the date of service was dedicated to preparing to see the patient, [id number] patient care, completing clinical documentation, obtaining and/or reviewing separately obtained history, performing a medically appropriate examination, and counseling and educating the patient/f amily/caregiver. This note was partially generated using voice recognition software. It has been reviewed for typographical errors, however some may remain. Any questions regarding meaning or word use should be directed to the author. Tanika Alves, 11:02 AM 01/24/2023 Procedure Osteopathic manipulative treatment (OMT) Time/Date:01/24/2023 11:34 AM Informed Consent Consent Obtained: Verbal Acworth Protocol SIGN IN Special Equipment: N/A Patient/Surrogate Stated/Verified: Patient name, Date of and Intended procedure TIME OUT Intended patient and procedure match the source document(s). Consent documented and matches the intended procedure. Consent Obtained:Verbal Body Regions: Head, Thoracic, Lumbar, Sacrum, Pelvis and Upper Extremities Head Technique: suboccipital release Thoracic Technique: myofascial release Lumbar Technique: percussion vibrator Sacrum Technique: percussion vibrator Pelvis Technique: muscle energy Upper Extremeties Technique: fascial ligamentous release, myofascial release Number of Body Regions: 5- 6 Disposition: Osteopathic manipulation tolerated well, reports subjective and objective improvement, improvement in range of motion and mechanics, instructed to increase hydration for the next 24 hours and instructed to follow up if symptoms worsen or fail to improve documented in this encounterPark[facility] Instructions* Patient Instructions* Tanika Alves DO - 01/01/2023 2:27 PM EDT Please note the following after treatment with Osteopathic Manipulative Treatment: 1. General aching can occur after manipulative treatment for 1-3 days. You may feel nauseous or unwell for a few hours after the treatment, please call if these symptoms persist for more than 24 hours. 2. Please drink an additional 8-16 ounces of water today. This will help reduce the chance of side effects. 3. Please do not engage in heavy lifting or other strenuous activity for 2 days. 4. Please call if you experience new numbness, weakness, or strong or sharp pain. This is not expected after manipulative treatment and should be evaluated. 5. Please minimize sugar, alcohol, and caffeine for the next 24 hours. Please eat a low-protein meal tonight to reduce nitrogen load on your kidneys. 6. Ensure you are getting adequate sleep; sleep is the time when your body does most of its healing. As a general rule, 7 hours of sleep per night is usually adequate. If you have any further questions or would like clarification on the above instructions, please call our office at [phone]. A message will be left with our physician staff and we will return your phone call as soon as possible. Please leave a current phone number to reach you back. If you need to cancel an appointment, it is important to make our office aware 24-48 hours before cancelling, for us to reschedule that appointment for you. You can call our appointment line at [phone] and press option number 1 to leave a message. Please leave a current phone number to reachyou back. documented in this encounterPark[facility] History of Present illness Narrative* Tanika Alves DO - 01/01/2023 2:05 PM EDTAssociated Order(s): Osteopathic manipulative treatment (OMT) Post-Procedure Diagnose(s): Neck pain; Somatic dysfunction of cervical region; Somatic dysfunction of thoracic region; Somatic dysfunction of lumbar region; Somatic dysfunction of sacral region; Chronic right shoulder pain; Chronic right SI joint pain; Somatic dysfunction of head region; Somatic dysfunction of rib; Somatic dysfunction of upper extremity Images from the original note were not included. Osteopathic Neuromusculoskeletal Medicine Progress Note Name: Margot Hu Date of : 1970 PCP: Ama Hamilton MD Date of Exam: January 01, 2023 SUBJECTIVE Chief Complaint: This is Margot Hu, a 52 year old female who presents with Patient presents with: Neck Pain: SI JOINT History of Present Illness: Patient presents for follow-up of neck pain and right SI joint pain. She reports that she is doing quite well after her last osteopathic treatment 3 weeks ago. She was able to tolerate a flight and vacation with no particular neck discomfort or lower back discomfort (which is unusual for her duringa flight or when using unfamiliar furniture). She does still have some tightness in the upper neck and a mild pain in the right SI joint, however they are much reduced compared to previous. She also continues to experience pain in the right shoulder when attempting to adduct it. The pain is focal in the posterior aspect of the shoulder but not in the glenohumeral joint itself. It does not radiate, and does not trigger with any other movement. After OMT, it also improves, however aftera couple of weeks it returns. Medical, surgical, and family histories reviewed. Allergies and social history reviewed. Review of Systems Constitutional: Negative for chills, fatigue and fever. Respiratory: Negative for cough and shortness of breath. Cardiovascular: Negative for chest pain. Musculoskeletal: Positive for arthralgias, back pain and neck pain. Negative for gait problem, myalgias and neck stiffness. Neurological: Negative for dizziness, weakness, numbness and headaches. OBJECTIVE BP 127/69 Pulse 62 Temp (Src) 97.5 (Temporal) Wt 157 lb (71.2kg) LMP 06/11/2017 Physical Exam Vitals and nursing note reviewed. Constitutional: General: She is not in acute distress. HENT: Head: Normocephalic and atraumatic. Pulmonary: Effort: Pulmonary effort is normal. Abdominal: General: There is no distension. Palpations: Abdomen is soft. Musculoskeletal: Right shoulder: No tenderness or bony tenderness. Decreased range of motion. Normal strength. Left shoulder: Normal. Cervical back: Neck supple. No pain with movement, spinous process tenderness or muscular tenderness. Decreased range of motion. Thoracic back: No spasms, tenderness or bony tenderness. Decreased range of motion. Lumbar back: No spasms, tenderness or bony tenderness. Decreased range of motion. Comments: Mild tightness over the right SI joint. Bilateral innominate movement equal and otherwiseunremarkable. Skin: General: Skin is warm and dry. Neurological: Mental Status: She is alert. Mental status is at baseline. Psychiatric: Mood and Affect: Mood normal. Somatic Dysfunction by Body Region: Head: Suboccipital hypertonicity Cervical: C5 flexed, sidebent right and rotated left Thoracic: Thoracic inlet restricted Lumbar: L5 flexed, rotated and side bent right Sacral: Right SI joint slightly restricted Ribs: Right rib 2 posterior Upper extremities: Restriction noted over bilateral cubital tunnels ASSESSMENT & PLAN Neck pain (primary encounter diagnosis) Chronic right si joint pain Chronic right shoulder pain Somatic dysfunction of head region Somatic dysfunction of cervical region Somatic dysfunction of thoracic region Somatic dysfunction of lumbar region Somatic dysfunction of sacral region Somatic dysfunction of upper extremity Somatic dysfunction of rib Orders Placed This Encounter Osteopathic manipulative treatment (OMT) Order Comments: This order was created via procedure documentation Patient presenting for follow-up of neck pain, right SI joint pain. Both have improved significantly with OMT; patient was able to tolerate a plane ride without difficulty. Right shoulder pain is still present today, does continue to correct with OMT, but does seem to recur. No specific point in the region of pain was found, however it seems to respond to treatment of the second rib on the right. OMT was performed today to improve function and reduce symptoms with good effect. See procedure note below. Return in about 3 weeks (around 01/22/2023). >50% of time spent on the date of service was dedicated to preparing to see the patient, [id number] patient care, completing clinical documentation, obtaining and/or reviewing separately obtained history, performing a medically appropriate examination, and counseling and educating the patient/f amily/caregiver. This note was partially generated using voice recognition software. It has been reviewed for typographical errors, however some may remain. Any questions regarding meaning or word use should be directed to the author. Tanika Alves DO 2:05 PM 01/01/2023 Procedure Osteopathic manipulative treatment (OMT) Time/Date:01/01/2023 2:32 PM Informed Consent Consent Obtained: Verbal Acworth Protocol SIGN IN Special Equipment: N/A Patient/Surrogate Stated/Verified: Patient name, Date of and Intended procedure TIME OUT Intended patient and procedure match the source document(s). Consent documented and matches the intended procedure. Consent Obtained:Verbal Body Regions: Head, Cervical, Ribs, Thoracic, Lumbar, Sacrum and Upper Extremities Head Technique: suboccipital release Cervical Technique: high-velocity low-amplitude thrust, muscle energy Thoracic Technique: myofascial release Ribs Technique: still technique Lumbar Technique: balanced ligamentous tension Sacrum Technique: articulatory Upper Extremeties Technique: balanced ligamentous tension Number of Body Regions: 7- 8 Disposition: Osteopathic manipulation tolerated well, reports subjective and objective improvement, improvement in range of motion and mechanics, instructed to increase hydration for the next 24 hours and instructed to follow up if symptoms worsen or fail to improve documented in this encounterPark[facility] Instructions* Patient Instructions* Tanika Alves DO - 11/03/2022 9:31 AM EDT Please note the following after treatment with Osteopathic Manipulative Treatment: 1. General aching can occur after manipulative treatment for 1-3 days. You may feel nauseous or unwell for a few hours after the treatment, please call if these symptoms persist for more than 24 hours. 2. Please drink an additional 8-16 ounces of water today. This will help reduce the chance of side effects. 3. Please do not engage in heavy lifting or other strenuous activity for 2 days. 4. Please call if you experience new numbness, weakness, or strong or sharp pain. This is not expected after manipulative treatment and should be evaluated. 5. Please minimize sugar, alcohol, and caffeine for the next 24 hours. Please eat a low-protein meal tonight to reduce nitrogen load on your kidneys. 6. Ensure you are getting adequate sleep; sleep is the time when your body does most of its healing. As a general rule, 7 hours of sleep per night is usually adequate. If you have any further questions or would like clarification on the above instructions, please call our office at [phone]. A message will be left with our physician staff and we will return your phone call as soon as possible. Please leave a current phone number to reach you back. If you need to cancel an appointment, it is important to make our office aware 24-48 hours before cancelling, for us to reschedule that appointment for you. You can call our appointment line at [phone] and press option number 1 to leave a message. Please leave a current phone number to reachyou back. documented in this encounterPark[facility]08-[facility] History of Present illness Narrative* Erlinda Loyola DO - 11/03/2022 8:47 AM EDT Images from the original note were not included. Osteopathic Neuromusculoskeletal Medicine Outpatient Progress Note Name: Margot Hu Date of : 1970 Date of Exam: November 03, 2022 Last [facility] Office Visit: 09/12/2022 Ama Hamilton MD is the PCP for this patient. I am seeing this patient for neuromusculoskeletal evaluation and if indicated, osteopathic manipulative treatment, and am returning the patient Ama Valladares MD for primary care. CC: This is Margot Hu, a 52 year old female who presents with Patient presents with: Neck Pain Knee Pain Back Pain Joint Pain History of Present Illness: Patient presents for follow-up. She continues to experience some tightness in the neck, however reports that it is better than it has previously been. She mostly notices the restriction when she tries to turn her neck to the left. Her SI joints are still clicking and popping, sometimes painful, sometimes tight, however much improved compared to previous visits. She denies any new falls or injuries. Her right knee is also improving; after taking the brace off and OMT performed at her last visit,she has had only a little bit of aching pain on the medial aspect of the knee. [place] much difficulty. She does note that she has some chronic tightness and pain in the posterior aspect of the right shoulder. This has been present for several years after developing goiter on the left which pressed on the cervical structures internally. This improved somewhat after the goiter was removed, however she continues to have trouble with crossing her arm across her chest. 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 She has never used smokeless tobacco. She reports current alcohol use. She reports that she does not use drugs. 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 Positives are in bold. Constitutional: no fevers, no chills, no fatigue HEENT: no congestion Neurologic: no weakness, no numbness, no headaches, no dizziness Psychiatric: no significant increased stress, no depression, no anxiety Skin: no rash Musculoskeletal: neck pain, back pain, arthralgia, no myalgia, gait abnormality Physical Exam: VITALS: BP 107/65 Pulse 75 Temp (Src) 96.9 (Temporal) Resp 17 Wt 158 lb (71.7kg) LMP 06/11/2017 Body mass index is 22.04 kg/m . Constitutional: awake and alert, in no acute distress HEENT: normocephalic, atraumatic; OA and suboccipital regions mildly right Neck: supple, slightly decreased range of motion in the neck at multiple points, no midline or muscular tenderness Neurologic: at neurologic baseline Psychiatric: normal mood and affect, cooperative, normal speech MSK: tenderness over distal insertion of the right MCL with some tightness and internal rotation ofthe right tibia; tenderness over both sacral lower poles with left SI and innominate slightly restricted Assessment and Plan: Encounter Diagnosis ICD-10-CM 1. Neck pain M54.2 2. Chronic right SI joint pain M53.3 G89.29 3. Chronic left SI joint pain M53.3 G89.29 4. Right knee pain, unspecified chronicity M25.561 5. Somatic dysfunction of head region M99.00 OSTEOPATHIC MANIP,9-10 BODY REGN CANCELED: OSTEOPATHIC MANIP,7-8 BODY REGN 6. Somatic dysfunction of cervical region M99.01 OSTEOPATHIC MANIP,9-10 BODY REGN CANCELED: OSTEOPATHIC MANIP,7-8 BODY REGN 7. Somatic dysfunction of thoracic region M99.02 OSTEOPATHIC MANIP,9-10 BODY REGN CANCELED: OSTEOPATHIC MANIP,7-8 BODY REGN 8. Somatic dysfunction of lumbar region M99.03 OSTEOPATHIC MANIP,9-10 BODY REGN CANCELED: OSTEOPATHIC MANIP,7-8 BODY REGN 9. Somatic dysfunction of sacral region M99.04 OSTEOPATHIC MANIP,9-10 BODY REGN CANCELED: OSTEOPATHIC MANIP,7-8 BODY REGN 10. Somatic dysfunction of pelvis region M99.05 OSTEOPATHIC MANIP,9-10 BODY REGN CANCELED: OSTEOPATHIC MANIP,7-8 BODY REGN 11. Somatic dysfunction of rib M99.08 OSTEOPATHIC MANIP,9-10 BODY REGN CANCELED: OSTEOPATHIC MANIP,7-8 BODY REGN 12. Somatic dysfunction of upper extremity M99.07 OSTEOPATHIC MANIP,9-10 BODY REGN CANCELED: OSTEOPATHIC MANIP,7-8 BODY REGN 13. Somatic dysfunction of lower extremity M99.06 OSTEOPATHIC MANIP,9-10 BODY REGN Much of Margot symptoms can be related to goiter which was surgically corrected, however restriction does seem to still be present. She is responding well to OMT, which was performed today to improvefunction and reduce symptoms with good effect. Return in about 5 weeks (around 12/08/2022). Start time: 08; end time: 934 Time Spent (min): 46 >50% of time spent on the date of service was dedicated to preparing to see the patient, [id number] patient care, completing clinical documentation, obtaining and/or reviewing separately obtained history, performing a medically appropriate examination, and counseling and educating the patient/f amily/caregiver. Patient seen and evaluated with Dr. Erlinda Loyola DO; please see attestation. Tanika Alves DO PGY-IV, ONMM 8:47 AM 11/03/2022 This note was partially generated using voice recognition software. It has been reviewed for typographical errors, however some may remain. Any questions regarding meaning or word use should be directed to the author. Procedure: Osteopathic Manipulative Treatment Based on the history and physical exam findings, osteopathic manipulative treatment was indicated, verbal consent was obtained and the following procedures were performed: Osteopathic Diagnosis, Treatment, Result Somatic Dysfunction Head M99.00 OA flexed sidebent right, rotated left treated with facilitated positional release; Improved Somatic Dysfunction Cervical M99.01 AA rotated right treated with muscle energy method; C3, C5, C7 all flexed side bent left and rotated right treated with facilitated positional release; Improved Somatic Dysfunction Thoracic M99.02 Thoracic inlet restriction treated with indirect myofascial release; paraspinal hypertonicity treated with combination of soft tissue method and indirect myofascial release; central tendon tightness treated with indirect visceral manipulation with respiratory assist; Improved Somatic Dysfunction Lumbar M99.03 Paraspinal hypertonicity treated with soft tissue method; Improved Somatic Dysfunction Sacral M99.04 Bilateral lower pole Robert tender points treated with strain-counterstrain method; left SI joint restricted treated with Still's technique; Improved Somatic Dysfunction Pelvic M99.05 Left innominate restriction treated with Still's technique; Improved Somatic Dysfunction Lower Extremity M99.06 Medial right knee restriction, particularly in the MCL, with slight internal rotation of the tibia treated with combination of balance ligamentous tension and indirect myofascial release; Improved Somatic Dysfunction Upper Extremity M99.07 Right clavicle restriction, right AC joint restriction, tightness in the right subclavius, and tightness in the posterior glenohumeral ligaments, treated with balanced ligamentous tension; Improved Somatic Dysfunction Ribs M99.08 Right rib 2 posterior treated with Still's technique; Improved Outcome of treatment relative to chief complaint and other pertinent symptoms: Significantly improved range of motion in the neck and the right shoulder; decreased tightness in the neck and sacral regions. Patient tolerated procedure well. On the date above, I was physically present and immediately available through the entire clinical encounter for the care of Margot Hu. I have discussed this patient's history, physical exam, diagnosis, and treatment with Dr. Alves. I have reviewed and agree with the resident's documentation of these elements, and that the care provided was reasonable and necessary. I personally interviewed and examined the patient. I was personally present during the arango/critical portions of the patient's OMT. I have edited the note based on my personal assessment of the patient. My edits are represented by deletions and italic additions. Erlinda Loyola DO November 03, 2022 4:01 PM documented in this encounterPark[facility] Discharge summary Author Traci Fuentes [facility] June 19, 2022 8:03am Note Date/Time June 19, 2022 8:0 3am [facility] Physical Therapy Health[address] [place] [address] / REHABILITATION SERVICES DISCHARGE SUMMARY MR#: [id number] Acct: [id number] Name: MARGOT HU Rep #: [id number] : 1970 51 From: Traci Gore Referring DrSilverio: OUT OF TOWN DOCTOR Status: REG R Insurance: [facility] SELF PAY INSURANCE MARGOT HU was seen in my office for initial evaluation on 01/12/22. The following Plan of Care was established for this patient: Initial Frequency: 2x /Week Initial Duration: 4 Weeks Patient/Client Instruction: Educate patient on: Benefits of Fitness Program Therapeutic Exercise to Include: Strength training, Endurance training, Balance training, Coordination, Agility training, Body mechanics, Postural training, Flexibilty training, Gait and locomotor training, Neuromotor development, Dynamic Lumbar Stabilization, Scapular Strength/Stabilization For the Purpose of:: To improve muscle performance and motor function TENS: Yes Thermo therapy (hot pack): Yes Ultrasound (thermal/non thermal): Yes For the Purpose of:: To improve muscle performance and motor function This patient was last seen in our office . Pertinent comments regarding their Physical therapy will appear below: Patient to hold on therapy- discharge at this time and return PRN At this point I will be discontinuing this patient from physical therapy. I would be happy to see this patient again in the future if found appropriate by the physician. Thank you! Traci Fuentes, DPT Balance/Gait/Functional tests - Balance/Special Test Scores Lower Extremity Functional Score: 64 <Electronically signed by Traci Fuentes DPT> 06/19/22 0803 CC: Dr. Ama Hamilton MD; MAXIM TAT ~ ELR Signed [facility] Work Phone: [phone] 878-893502-24-2023 History of Present illness Narrative* Erlinda Loyola, DO - 05/19/2022 8:30 AM EST Osteopathic Neuromusculoskeletal Medicine (ONMM) Progress Note Name: Margot Hu, Gender: female, : 1970, Age: [age] year old Date of Exam: May 17, 2022 Ama Hamilton MD is the PCP for this patient. I am seeing this patient for neuromusculoskeletal evaluation and if indicated, osteopathic manipulative treatment, and am returning the patient to Ama Hamilton MD for primary care. History of Present Illness: Chief Complaint: This is a 51 year old female . Patient presents with: Neck SI Pain Last OV: 04/21/2022 Functional goal of today's visit: improve L SI joint OMT improved for a few days, then sxs returns Saw chiropractor last week which helped minimally with sxs R knee pain Saw orthopedics 04/2022 Did get injection in R knee day after thanksgiving 01/2022 Taking meloxicam 7.5mg daily, is helping Wearing off loading brace Reports stiffness since thyroid surgery on the R Has partial thyroidectomy, L remains Reports some neck stiffness Review of Systems: Review of Systems sheet reviewed and discussed with patient. Review of Systems Constitutional: Negative for chills and fever. Respiratory: Negative for chest tightness and shortness of breath. Cardiovascular: Negative for chest pain. Musculoskeletal: Positive for gait problem (L SI joint pain) and neck stiffness. Skin: Negative for rash. Medication changes: None All other systems reviewed and negative. Reviewed: Meds, problem list, allergies Social History: reports that she has never smoked. She has never used smokeless tobacco. She reports current alcohol use. She reports that she does not use drugs. 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 Body mass index is 22.32 kg/m . GENERAL APPEARANCE: NAD, A&O , non-ataxic non-antalgic gait, appears nontoxic NECK: supple, no cervical adenopathy. LUNGS: without respiratory distress, no accessory muscle use NEUROLOGY: alert and oriented x 3, speech is fluent, motor strength 5/5 upper and lower extremities, seated /supine straight leg raising negative for back pain or sciatic pain down leg bilaterally. MSK: goes from a standing position to supine position and from a supine position to standing position without difficulty. Normal curvature of lumbar spine, no midline bony tenderness of lumbar spine, no step off palpated,lumbar ROM Osteopathic Structural Exam: See specific diagnoses above Head: decreased CRI Cervical lordosis: increased paraspinal hypertonicity Thoracic kyphosis: increased thoracic kyphosis Lumbar lordosis: increase paraspinal hypertonicity Pelvis: asymmetry of ASIS Sacrum: asymmetry of sacral base Ribs: restriction to motion with respiration Lower extremity: leg length functional discrepancy and tissue texture changes Upper extremity: arm length functional discrepancy and tissue texture changes Abdomen: restriction of abdominal diaphragm with respiration Imaging: MRI knee 04/2022 EXAM: MR RIGHT LOWER EXTREMITY WITHOUT INTRAVENOUS CONTRAST, KNEE CLINICAL INDICATION: RIGHT knee pain, NKI TECHNIQUE: Multiplanar and multisequence MR images of the right knee without intravenous contrast. This report was created using [employer] report generation technology. COMPARISON: Right knee radiography February 18, 2020 FINDINGS: BONES/JOINTS: Subtle ill-defined bone marrow edema along the peripheral aspect of the medial tibial plateau and medial tibial metaphysis without fracture line. Bone marrow edema at the anterosuperior patella. Could represent bone contusion with no fracture identified. Adjacent focal subcutaneous edema and also signal alteration involving the distal quadriceps tendon suggests a partial-thickness low to moderate grade tear. No synovial hypertrophy. No intra-articular body. EXTENSOR MECHANISM: Signal alteration involving the distal quadriceps tendon suggesting a partial-thickness low to moderate grade tear. No synovial hypertrophy. No intra-articular body. MEDIAL MENISCUS: Tiny radial tear at the anterior portion of the posterior horn of the medial meniscus. There also appears to be a very small longitudinal oblique tear of the posterior horn medial meniscus with tear contacting the inferior meniscal surface. LATERAL MENISCUS: Unremarkable. MEDIAL CAPSULE/SUPPORTING STRUCTURES: Unremarkable. Intact. LATERAL CAPSULE/SUPPORTING STRUCTURES: Unremarkable. Lateral collateral ligamentous complex, inclusive of the popliteal tendon, are intact. ANTERIOR CRUCIATE LIGAMENT: Unremarkable. Intact. POSTERIOR CRUCIATE LIGAMENT: Unremarkable. Intact. MUSCLES: Unremarkable. CARTILAGE: Unremarkable. No focal chondral defects. FLUID: Physiologic amounts of suprapatellar joint fluid. Very small Yepez''s cyst identified. No joint effusion. OTHER SOFT TISSUES: See above. Assessment/Plan: Complicating diagnoses that impact the patient's function include: Encounter Diagnosis ICD-10-CM 1. Chronic left SI joint pain M53.3 G89.29 2. Chronic pain of right knee M25.561 G89.29 3. Chronic midline low back pain without sciatica M54.50 G89.29 4. Somatic dysfunction of head region M99.00 OSTEOPATHIC MANIP,9-10 BODY REGN 5. Somatic dysfunction of cervical region M99.01 OSTEOPATHIC MANIP,9-10 BODY REGN 6. Somatic dysfunction of thoracic region M99.02 OSTEOPATHIC MANIP,9-10 BODY REGN 7. Somatic dysfunction of rib M99.08 OSTEOPATHIC MANIP,9-10 BODY REGN 8. Somatic dysfunction of lumbar region M99.03 OSTEOPATHIC MANIP,9-10 BODY REGN 9. Somatic dysfunction of pelvis region M99.05 OSTEOPATHIC MANIP,9-10 BODY REGN 10. Somatic dysfunction of sacral region M99.04 OSTEOPATHIC MANIP,9-10 BODY REGN 11. Somatic dysfunction of lower extremity M99.06 OSTEOPATHIC MANIP,9-10 BODY REGN 12. Somatic dysfunction of upper extremities M99.07 OSTEOPATHIC MANIP,9-10 BODY REGN Office Visit on 05/19/22 OSTEOPATHIC MANIP,9-10 BODY REGN Based on the history and physical exam findings, Osteopathic manipulative treatment was indicated, verbal consent was obtained and the following procedures were performed: Area of greatest dysfunction: left SI Osteopathic Diagnosis, Treatment, Result Somatic Dysfunction Head M99.00 suboccipital hypertonicity treated with suboccipital release Improved Somatic Dysfunction Cervical M99.01 Left hyoid restriction treated with BLT, right SCM hypertonicity treated with indirect myofascial release, Anterior cervical fascia restricted treated with indirect myofascial release, Bilateral hypertonic scalenes treated with muscle energyImproved Somatic Dysfunction Thoracic M99.02 T12/thoracolumbar restriction treated with indirect myofascial release, thoracic inlet restricted bilaterally treated with BLT Improved Somatic Dysfunction Ribs M99.08 Left clavicle superior treated with BLT, Right rib 1 inhalation dysfunction treated with stills technique, rib 12 left restriction treated with BLT Improved Somatic Dysfunction Lumbar M99.03 L5 flexed rotated left side bent left treated with HVLA, Quadratus lumborum left hypertonicity treated with BLT Improved Somatic Dysfunction Pelvic M99.05 Left innominate down slip treated with right anterior leg tug Improved Somatic Dysfunction Sacral M99.04 Sacral dysmotility treated with BMT, bilateral SI joint restriction treated with stills technique Improved Somatic Dysfunction Lower Extremity M99.06 R>L talus anterior talus treated with HVLA and BLT, posterior tibial edema treated with indirect myofascial release Improved Somatic Dysfunction Upper Extremity M99.07 Left greater than right pectoral hypertonicity treated with pectoral traction Improved Outcome of treatment relative to chief complaint: decreased pain and improved ROM Additional Comments: Recommend: Use Crossfit myofascial band Exercise prescription: Utilization of myofascial flossing to right knee effusion, recommended following YouTube videos regarding procedure DATA REVIEWED N/A COUNSELED PATIENT ON I counseled patient on their specific diagnosis listed above. I counseled patient on the recommendations listed above. I counseled patient on the risks and benefits of OMT. After visit summary was reviewed with the patient. I counseled the patient to do home exercises if indicated. Return for re-evaluation of Pain/Somatic Dysfunction. Will provide OMT if indicated. Start time: 840; end time: 940 Time Spent (min): 60 I spent a total of 30 minutes on the date of the service which included preparing to see the patient, [id number] patient care, completing clinical documentation, obtaining and/or reviewing separately obtained history, performing a medically appropriate examination, counseling and educating the pat ient/family/caregiver, communicating results to the patient/family/caregiver, and care coordination(not separately reported). 30 minutes on the date of service were spent on the procedure as specified above. The above conditions, differential diagnoses, treatment plans, and significant side effects of the medications were discussed. The patient verbalizes understanding of the above assessments and treatment, and she has been instructed to call our office if any medical issues arise. Patient seen and evaluated with Dr. Loyola; please see their attestation. Maxim Lou DO This note was partially generated using voice recognition software. It has been reviewed for typographical errors, however some may remain. Any questions regarding meaning or word use should be directed to the author. On the date above, I was physically present and immediately available through the entire clinical encounter for the care of Margot Hu. I have discussed this patient's history, physical exam, diagnosis, and treatment with Dr. Lou. I have reviewed and agree with the resident's documentation of these elements, and that the care provided was reasonable and necessary. I personally interviewed and examined the patient. I was personally present during the arango/critical portions of the patient's OMT. I have edited the note based on my personal assessment of the patient. My edits are represented by deletions and italic additions. Erlinda Loyola DO May 19, 2022 5:04 PM documented in this encounterPark[facility]02-13-[facility]23 Instructions* Patient Instructions* Maxim Lou DO - 05/08/2022 6:31 PM EST Images from the original note were not included. EAETQEWC-Byzyu-Fkxmn-Htqtwmdibj-Qevnwsd-Dgwwytt-Quapi-Lccy-Imdeiydc-Mobility-Place Change Roof Bolter clBmv-[id number]-Nbgeusu-jufq-[id number] Please note the following after treatment with Osteopathic Manipulative Treatment: 1. General aching can occur after manipulative treatment for 1-3 days. You may feel nauseous or unwell for a few hours after the treatment, please call if these symptoms persist for more than 24 hours. 2. Please drink an additional 8-16 ounces of water today. This will help reduce the chance of side effects. 3. Please do not engage in heavy lifting or other strenuous activity for the next 24 hours. However, physical activity is important. Perform physical activity to your comfort level, and be sure to incorporate a gentle stretching routine before and after. 4. Please call if you experience new numbness, weakness, or strong or sharp pain. This is not expected after manipulative treatment and should be evaluated. 5. Please minimize sugar, alcohol, and caffeine for the next 24 hours. 6. Ensure you are getting adequate sleep; sleep is the time when your body does most of its healing. As a general rule, 7 hours of sleep per night is usually adequate. If you have any further questions or would like clarification on the above instructions, please call our office at [phone]. A message will be left with our physician staff and we will return your phone call as soon as possible. Please leave a current phone number to reach you back. If you need to cancel an appointment, it is important to make our office aware 24-48 hours before cancelling, for us to reschedule that appointment for you. You can call our appointment line at [phone] and press option number 1 to leave a message. Please leave a current phone number to reachyou back. documented in this encounterPark[facility]01-27-2023 Instructions* Patient Instructions* Tanika Alves DO - 04/21/2022 4:55 PM EST Please note the following after treatment with Osteopathic Manipulative Treatment: 1. General aching can occur after manipulative treatment for 1-3 days. You may feel nauseous or unwell for a few hours after the treatment, please call if these symptoms persist for more than 24 hours. 2. Please drink an additional 8-16 ounces of water today. This will help reduce the chance of side effects. 3. Please do not engage in heavy lifting or other strenuous activity for 2 days. 4. Please call if you experience new numbness, weakness, or strong or sharp pain. This is not expected after manipulative treatment and should be evaluated. 5. Please minimize sugar, alcohol, and caffeine for the next 24 hours. Please eat a low-protein meal tonight to reduce nitrogen load on your kidneys. 6. Ensure you are getting adequate sleep; sleep is the time when your body does most of its healing. As a general rule, 7 hours of sleep per night is usually adequate. If you have any further questions or would like clarification on the above instructions, please call our office at [phone]. A message will be left with our physician staff and we will return your phone call as soon as possible. Please leave a current phone number to reach you back. If you need to cancel an appointment, it is important to make our office aware 24-48 hours before cancelling, for us to reschedule that appointment for you. You can call our appointment line at [phone] and press option number 1 to leave a message. Please leave a current phone number to reachyou back. documented in this encounterParkview [facility]01-27-2023 History of Present illness Narrative* Elizabeth Ram DO - 04/21/2022 3:58 PM EST Osteopathic Neuromusculoskeletal Medicine (ONMM) Progress Note Name: Margot Hu, Gender: female, : 1970, Age: [age] year old Date of Exam: April 21, 2022 Ama Hamilton MD is the PCP for this patient. I am seeing this patient for neuromusculoskeletal evaluation and if indicated, osteopathic manipulative treatment, and am returning the patient to Ama Hamilton MD for primary care. History of Present Illness: Chief Complaint: Patient presents with: Pain Last OV: 01/06/2022 This is a 51 year old female with PMHx significant for POTS, Raynaud's, IBS, and goiter presenting today for follow-up of SI joint pain and OMT. She reports that she is doing very well; previously, her right SI joint was painful, however it hasbeen symptom-free for the past couple of months. However, for the past month, she has been experiencing new aching pain, similar to before, but in the left SI joint which has been intermittent. She has been unable to articulate herself, has not identified any alleviating or aggravating factors. She reports her chronic neck pain is significantly improved with OMT; there is still a spot in the right side upper back, which she believes is her rib, which has been persistently mildly achy. Her neck is much more mobile, less painful, but not 100% resolved yet; she believes her scalenes are still somewhat tight relating to neuropathy from previously treated goiter. In addition, she reports that her right knee is still painful. She has been treated with meloxicam and physical therapy for this, with good effect from the meloxicam however she is no longer on this medication. As a result, her pain has persisted. She was not getting much improvement with physical therapy; she was sent to a nearby orthopedist who gave her steroid injection into her knee with someimprovement since then. Overall, she feels her knee function is better, however the pain itself hasnot changed. It is located on the medial aspect of the right tibial condyle, nonradiating, ever present. Radiographs of the knee were unremarkable; MRI has been ordered to assess for bony contusion (she does note that this is outside of the [facility]). 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 Trauma History Right ankle sprain in 7th grade Left knee meniscal tear and Yepez's cyst Review of Systems: Review of Systems sheet reviewed and discussed with patient. Review of Systems Constitutional: Negative for chills, fatigue and fever. HENT: Negative for congestion. Respiratory: Negative for cough and shortness of breath. Cardiovascular: Negative for chest pain. Musculoskeletal: Positive for arthralgias and back pain. Negative for gait problem, joint swelling,neck pain and neck stiffness. Skin: Negative for color change and wound. Neurological: Negative for dizziness, weakness, light-headedness, numbness and headaches. Medication changes: None All other systems reviewed and negative. Reviewed: Meds, problem list, allergies Social History: reports that she has never smoked. She has never used smokeless tobacco. She reports current alcohol use. She reports that she does not use drugs. 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 Body mass index is 22.59 kg/m . Physical Exam Vitals and nursing note reviewed. Constitutional: General: She is not in acute distress. Appearance: Normal appearance. She is normal weight. She is not ill-appearing. HENT: Head: Normocephalic and atraumatic. Neck: Comments: Slight hypertonicity is noted in the right posterior scalenes. There is a line of tensionconsistent with scar tissue ranging from the thyroid to the scalenes on the right. Cardiovascular: Rate and Rhythm: Normal rate and regular rhythm. Pulmonary: Effort: Pulmonary effort is normal. No respiratory distress. Musculoskeletal: Cervical back: Normal range of motion and neck supple. No rigidity or tenderness. Comments: Right rib 2 restricted. There is restriction of the left SI joint at the sacral base, which appears to be related to a slightly slipped left innominate. Right knee is not swollen, moderately tender on the medial aspect over several fascial distortions. Skin: General: Skin is warm and dry. Capillary Refill: Capillary refill takes less than 2 seconds. Neurological: General: No focal deficit present. Mental Status: She is alert. Mental status is at baseline. Psychiatric: Mood and Affect: Mood normal. Behavior: Behavior normal. See below under Osteopathic Exam, Diagnosis, Treatment, Result for structural findings. Assessment/Plan: Complicating diagnoses that impact the patient's function include: Encounter Diagnosis ICD-10-CM 1. Sacroiliac pain M53.3 2. Right knee pain, unspecified chronicity M25.561 3. Pes anserine bursitis M70.50 4. Neck pain M54.2 5. Somatic dysfunction of head region M99.00 OSTEOPATHIC MANIP,5-6 BODY REGN 6. Somatic dysfunction of cervical region M99.01 OSTEOPATHIC MANIP,5-6 BODY REGN 7. Somatic dysfunction of lumbar region M99.03 OSTEOPATHIC MANIP,5-6 BODY REGN 8. Somatic dysfunction of sacral region M99.04 OSTEOPATHIC MANIP,5-6 BODY REGN 9. Somatic dysfunction of pelvis region M99.05 OSTEOPATHIC MANIP,5-6 BODY REGN 10. Somatic dysfunction of lower extremity M99.06 OSTEOPATHIC MANIP,5-6 BODY REGN Office Visit on 04/21/22 OSTEOPATHIC MANIP,5-6 BODY REGN Based on the history and physical exam findings, Osteopathic manipulative treatment was indicated, verbal consent was obtained and the following procedures were performed: Osteopathic Exam, Diagnosis, Treatment, Result Somatic Dysfunction Cervical M99.01 C5 extended rotated and sidebent left treated with high-velocity low-amplitude technique; right posterior scalene hypertonic treated with direct myofascial release; Improved Somatic Dysfunction Lumbar M99.03 L3-L4 neutral sidebent left, rotated right treated with high-velocity low-amplitude technique; Improved Somatic Dysfunction Sacral M99.04 restriction of right SI joint at the sacral base treated with high-velocity low-amplitude technique; Improved Somatic Dysfunction Pelvic M99.05 slight upslip of left innominate treated with high-velocity low-amplitude technique; Improved Somatic Dysfunction Lower Extremity M99.06 right tibial internal rotation (mild) treated with balanced ligamentous tension; multiple herniated trigger points over medial tibial condyle treated with the fascial distortion model (indirect method); right sartorius hypertonicity treated with indirect myofascial release; right patellar tendon hypertonic treated with indirect muscle energy technique toquadriceps; Improved Somatic Dysfunction Ribs M99.08 right rib 2 inhaled and slightly posterior, treated with balanced ligamentous tension; Improved Outcome of treatment relative to chief complaint: Significantly improved pain of the right knee. SIjoint demonstrating normal mobility now. Decreased tension in posterior scalenes on the right, however not completely resolved. Additional Comments: Overall improving well with osteopathic manipulations. In terms of the persistent scaling dysfunction, likely relating to scar tissue from the previously resected goiter; we will plan to address thisdysfunction at her next visit. DATA REVIEWED I personally reviewed the last progress note in EPIC. 06 January 2022 COUNSELED PATIENT ON I counseled patient on their specific diagnosis listed above. I counseled patient on the recommendations listed below. After visit summary was reviewed with the patient. Start time: 1558; end time: 1655 Time Spent (min): 57 I spent a total of 30 minutes on the date of the service which included preparing to see the patient, [id number] patient care, completing clinical documentation, obtaining and/or reviewing separately obtained history, performing a medically appropriate examination, and counseling and educating the patient/family/caregiver. 27 minutes on the date of service were spent on the procedure as specified above. Return in about 4 weeks (around 05/19/2022). The above conditions, differential diagnoses, treatment plans, and significant side effects of the medications were discussed. The patient verbalizes understanding of the above assessments and treatment, and she has been instructed to call our office if any medical issues arise. Patient seen and evaluated with Dr. Elizabeth Ram DO; please see their attestation. Tanika Alves DO 3:58 PM 04/21/2022 This note was partially generated using voice recognition software. It has been reviewed for typographical errors, however some may remain. Any questions regarding meaning or word use should be directed to the author. On the date above, I interviewed and examined the patient. I was present for the arango component of the exam and treatment and I fully participated in Margot Hu's care. I discussed the management with the resident, Dr. Tanika Alves . I reviewed the note above and I agree with and confirm those findings as well as the plan of care. I reviewed the labs and the recent notes in EPIC. I haveedited the note based on my personal assessment of the patient. My edits are represented by deletions and italic additions. I agree with the work-up as detailed in the resident's note above. Elizabeth Ram D.O., [employer]ONEYAD, C-[employer] Associate Florist Supplies Salesperson, Osteopathic Neuromusculoskeletal Medicine Residency [facility] documented in this encounterPark[facility] Instructions* Patient Instructions* Maxim Lou DO - 01/06/2022 10:24 AM EDT Okay to take half Mobic if 50 mg too strong. Not take ibuprofen with Mobic. Please note the following after treatment with Osteopathic Manipulative Treatment: 1. General aching can occur after manipulative treatment for 1-3 days. You may feel nauseous or unwell for a few hours after the treatment, please call if these symptoms persist for more than 24 hours. 2. Please drink an additional 8-16 ounces of water today. This will help reduce the chance of side effects. 3. Please do not engage in heavy lifting or other strenuous activity for the next 24 hours. However, physical activity is important. Perform physical activity to your comfort level, and be sure to incorporate a gentle stretching routine before and after. 4. Please call if you experience new numbness, weakness, or strong or sharp pain. This is not expected after manipulative treatment and should be evaluated. 5. Please minimize sugar, alcohol, and caffeine for the next 24 hours. 6. Ensure you are getting adequate sleep; sleep is the time when your body does most of its healing. As a general rule, 7 hours of sleep per night is usually adequate. If you have any further questions or would like clarification on the above instructions, please call our office at [phone]. A message will be left with our physician staff and we will return your phone call as soon as possible. Please leave a current phone number to reach you back. If you need to cancel an appointment, it is important to make our office aware 24-48 hours before cancelling, for us to reschedule that appointment for you. You can call our appointment line at [phone] and press option number 1 to leave a message. Please leave a current phone number to reachyou back. documented in this encounterPark[facility]22 History of Present illness Narrative* Buzz Charles DO - 01/06/2022 9:30 AM EDT Osteopathic Neuromusculoskeletal Medicine (ONMM) Progress Note Name: Margot Hu, Gender: female, : 1970, Age: [age] year old Date of Exam: January 06, 2022 Ama Hamilton MD is the PCP for this patient. I am seeing this patient for neuromusculoskeletal evaluation and if indicated, osteopathic manipulative treatment, and am returning the patient to Ama Hamilton MD for primary care. History of Present Illness: Chief Complaint: This is a 51 year old female . Patient presents with: Back Pain Last OV: 12/02/2021 Functional goal of today's visit: This is a 51-year-old female who presents with right knee pain that has been ongoing since October 2021 after hiking up and down in [place]. She reports she hiked approximately 33 miles in approximately 1 week. Since then she has developed right knee pain. Pain is described as a zinging sensation in her knee when she gets up from sitting to walking. She says she noticed swelling in her knees thatimproves with ibuprofen 800 mg twice daily, Voltaren gel, icing. Patient has adjusted her daily activities secondary to pain. She has modified her yoga activities, has stopped going on stationary bike secondary to pain with right knee flexion. She also reports decreased range of motion with right knee flexion. She denies any trauma, accidents. She denies any instability of the knee, buckling, popping clicking locking. She denies any numbness tingling in her lower extremities Right SI joint stable, improved after OMT. However certain movements do exacerbate right SI joint. Review of Systems: Review of Systems sheet reviewed and discussed with patient. Review of Systems Constitutional: Negative for chills and fever. Respiratory: Negative for chest tightness and shortness of breath. Cardiovascular: Negative for chest pain. Gastrointestinal: Negative for diarrhea and vomiting. Denies nausea, ulcers, melena, reflux Musculoskeletal: Positive for joint swelling (Right knee). New or different joint pain in right knee Medication changes: None All other systems reviewed and negative. Reviewed: Meds, problem list, allergies Social History: reports that she has never smoked. She has never used smokeless tobacco. She reports current alcohol use. She reports that she does not use drugs. 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 Physical Exam Vitals reviewed. Constitutional: General: She is not in acute distress. Appearance: Normal appearance. She is not ill-appearing or toxic-appearing. HENT: Head: Normocephalic and atraumatic. Pulmonary: Effort: Pulmonary effort is normal. No respiratory distress. Breath sounds: Normal breath sounds. No wheezing (no audible wheezing). Abdominal: General: Abdomen is flat. Musculoskeletal: General: Tenderness present. No signs of injury. Right lower leg: No edema. Left lower leg: No edema. Comments: Plus 5 out of 5 strength hip flexion, knee extension and flexion, ankle dorsiflexion and plantar flexion. +2 patellar and Achilles reflexes bilaterally Tender to palpation medial tibial tubercle Patella tracks medially Pes anserine bursa palpated right No appreciated knee effusion, erythema, edema Mild crepitus appreciated with right knee flexion and extension Negative Joie's test, anterior drawer test, posterior drawer test Skin: General: Skin is warm. Coloration: Skin is not jaundiced. Neurological: General: No focal deficit present. Mental Status: She is alert and oriented to person, place, and time. Gait: Gait normal. Psychiatric: Mood and Affect: Mood normal. Osteopathic Structural Exam: See specific diagnoses above Pelvis: asymmetry of ASIS Sacrum: asymmetry of sacral base Ribs: restriction to motion with respiration Lower extremity: leg length functional discrepancy and tissue texture changes Abdomen: restriction of abdominal diaphragm with respiration Assessment/Plan: Complicating diagnoses that impact the patient's function include: Encounter Diagnosis ICD-10-CM 1. Right knee pain, unspecified chronicity M25.561 meloxicam (MOBIC) 15 mg tablet CONSULT TO PHYSICAL THERAPY 2. Pes anserine bursitis M70.50 meloxicam (MOBIC) 15 mg tablet CONSULT TO PHYSICAL THERAPY 3. Sacroiliac pain M53.3 4. Somatic dysfunction of sacral region M99.04 OSTEOPATHIC MANIP,3-4 BODY REGN 5. Somatic dysfunction of pelvis region M99.05 OSTEOPATHIC MANIP,3-4 BODY REGN 6. Somatic dysfunction of lower extremity M99.06 OSTEOPATHIC MANIP,3-4 BODY REGN 7. Somatic dysfunction of lumbar region M99.03 OSTEOPATHIC MANIP,3-4 BODY REGN Office Visit on 01/06/22 OSTEOPATHIC MANIP,3-4 BODY REGN CONSULT TO PHYSICAL THERAPY meloxicam (MOBIC) 15 mg tablet Based on the history and physical exam findings, Osteopathic manipulative treatment was indicated, verbal consent was obtained and the following procedures were performed: Area of greatest dysfunction: Right lower extremity Osteopathic Diagnosis, Treatment, Result Somatic Dysfunction Lumbar M99.03 L5 flexed rotated right side bent right treated with BLT, lumbosacral joint restriction treated with frog legs stills technique Improved Somatic Dysfunction Pelvic M99.05 Anterior right innominate rotation treated with muscle energy, left pubic tubercle inferior pubic sheer treated with stills technique Improved Somatic Dysfunction Sacral M99.04 Right greater than left SI joint restriction treated with stills technique, sacral dysmotility treated with BMT Improved Somatic Dysfunction Lower Extremity M99.06 Drop right cuboid treated with foot block, left navicular dropped treated with foot block, Bilateral sesamoid bone restricted treated with BLT right fibularhead posterior treated with muscle energy, right plantar fascia restriction treated with BLT, compressed patella on the right treated with indirect myofascial release, right tib-fib interosseous strain treated with FLR Improved Outcome of treatment relative to chief complaint: Decreased tender to palpation medial right tibialtubercle, increased right knee flexion per patient,able to ambulate without zinging in knee Additional Comments: Recommend: Recommend physical therapy to strengthen quadriceps and possibly gastrocnemius soleus. Patient without trauma to right knee, no instability. Suspect right knee OA exacerbated after hiking. Consider x-ray right knee if not improved with physical therapy. Advised patient to hold off on ibuprofen while taking meloxicam. Patient can have meloxicam dose asneeded. Advised if patient develops hives with meloxicam to switch back to ibuprofen. We discussed risks of long-term NSAID use including GI bleed, ulcers. Exercise prescription: DATA REVIEWED N/A COUNSELED PATIENT ON I counseled patient on their specific diagnosis listed above. I counseled patient on the recommendations listed above. I counseled patient on the risks and benefits of OMT. After visit summary was reviewed with the patient. I counseled the patient to do home exercises if indicated. Return for re-evaluation of Pain/Somatic Dysfunction. Will provide OMT if indicated. Medical Decision Making: Problems: Moderate: 2+ stable chronic illnesses Risk: Moderate: Moderate risk from testing/treatment and Drug management Medical Decision Making Level: 4 - Moderate The above conditions, differential diagnoses, treatment plans, and significant side effects of the medications were discussed. The patient verbalizes understanding of the above assessments and treatment, and she has been instructed to call our office if any medical issues arise. Patient seen and evaluated with Dr. Charles; please see their attestation. Maxim Lou DO 8:11 AM 01/06/2022 This note was partially generated using voice recognition software. It has been reviewed for typographical errors, however some may remain. Any questions regarding meaning or word use should be directed to the author. On the date above, I was physically present and immediately available through the entire clinical encounter for the care of Margot Hu. I have discussed this patient's history, physical exam, diagnosis, and treatment with Dr. Lou. I have reviewed and agree with the resident's documentation of these elements, and that the care provided was reasonable and necessary. I personally interviewed and examined the patient. I was personally present during the arango/critical portions of the patient'sOMT. Level 4 billing based off of diagnoses and drug management of new prescribed medication meloxicam and PT. I have edited the note based on my personal assessment of the patient. My edits are represented by deletions and italic additions. Buzz Charles D.O. Core Faculty, Osteopathic Neuromusculoskeletal Medicine Residency [facility] documented in this encounterPark[facility]09-[facility]22 Instructions* Patient Instructions* Maxim Lou DO - 12/02/2021 5:56 PM EDT Please note the following after treatment with Osteopathic Manipulative Treatment: 1. General aching can occur after manipulative treatment for 1-3 days. You may feel nauseous or unwell for a few hours after the treatment, please call if these symptoms persist for more than 24 hours. 2. Please drink an additional 8-16 ounces of water today. This will help reduce the chance of side effects. 3. Please do not engage in heavy lifting or other strenuous activity for the next 24 hours. However, physical activity is important. Perform physical activity to your comfort level, and be sure to incorporate a gentle stretching routine before and after. 4. Please call if you experience new numbness, weakness, or strong or sharp pain. This is not expected after manipulative treatment and should be evaluated. 5. Please minimize sugar, alcohol, and caffeine for the next 24 hours. 6. Ensure you are getting adequate sleep; sleep is the time when your body does most of its healing. As a general rule, 7 hours of sleep per night is usually adequate. If you have any further questions or would like clarification on the above instructions, please call our office at [phone]. A message will be left with our physician staff and we will return your phone call as soon as possible. Please leave a current phone number to reach you back. If you need to cancel an appointment, it is important to make our office aware 24-48 hours before cancelling, for us to reschedule that appointment for you. You can call our appointment line at [phone] and press option number 1 to leave a message. Please leave a current phone number to reachyou back. documented in this encounterPark[facility]09-[facility]-2022 History of Present illness Narrative* Elizabeth Ram DO - 12/02/2021 4:30 PM EDT Osteopathic Neuromusculoskeletal Medicine (ONMM) Progress Note Name: Margot Hu, Gender: female, : 1970, Age: [age] year old Date of Exam: December 02, 2021 Ama Hamilton MD is the PCP for this patient. I am seeing this patient for neuromusculoskeletal evaluation and if indicated, osteopathic manipulative treatment, and am returning the patient to Ama Hamilton MD for primary care. History of Present Illness: Chief Complaint: This is a 51 year old female . Patient presents with: Sacroiliac pain Leg length discrepancy Last OV: 10/07/2021 Functional goal of today's visit: improve sacral pain SI joint improved Sacrum very tender at left SI junction, worse if sacrum and lumbar spine contacts hard surface or hat chair has lumbar support Reports she feels that her L hip flexor is tender Last 2 weeks, R knee bursitis R knee Pes anserine discomfort- but no locking, popping or clicking Denies numbness tingling of lower extremities Review of Systems: Review of Systems sheet reviewed and discussed with patient. Review of Systems Constitutional: Negative for chills and fever. Respiratory: Negative for chest tightness and shortness of breath. Gastrointestinal: Negative for abdominal pain, nausea and vomiting. Musculoskeletal: Positive for back pain. Medication changes: None All other systems reviewed and negative. Reviewed: Meds, problem list, allergies Social History: reports that she has never smoked. She has never used smokeless tobacco. She reports current alcohol use. She reports that she does not use drugs. 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 Body mass index is 22.88 kg/m . Physical Exam Vitals reviewed. Constitutional: General: She is not in acute distress. Appearance: Normal appearance. She is not ill-appearing or toxic-appearing. HENT: Head: Normocephalic and atraumatic. Cardiovascular: Rate and Rhythm: Normal rate. Pulmonary: Effort: Pulmonary effort is normal. No respiratory distress. Breath sounds: Normal breath sounds. No wheezing (no audible wheezing). Abdominal: General: Abdomen is flat. Musculoskeletal: Comments: +5/5 lower extremity strength Good sensation bilaterally +2 patellar and Achilles reflex bilaterally Ambulates without issues Hypertonicity of right levator scapula and scalenes Skin: General: Skin is warm. Coloration: Skin is not jaundiced. Neurological: General: No focal deficit present. Mental Status: She is alert and oriented to person, place, and time. Motor: No weakness. Gait: Gait normal. Psychiatric: Mood and Affect: Mood normal. Behavior: Behavior normal. Osteopathic Structural Exam: See specific diagnoses above Head: decreased CRI Cervical lordosis: increased paraspinal hypertonicity Thoracic kyphosis: increased thoracic kyphosis Lumbar lordosis: increase paraspinal hypertonicity Pelvis: asymmetry of ASIS Sacrum: asymmetry of sacral base Ribs: restriction to motion with respiration Lower extremity: leg length functional discrepancy and tissue texture changes Upper extremity: arm length functional discrepancy and tissue texture changes Assessment/Plan: Complicating diagnoses that impact the patient's function include: Encounter Diagnosis ICD-10-CM 1. Sacroiliac pain M53.3 2. Acute pain of right knee M25.561 3. Neck pain M54.2 4. Somatic dysfunction of head region M99.00 OSTEOPATHIC MANIP,7-8 BODY REGN 5. Somatic dysfunction of cervical region M99.01 OSTEOPATHIC MANIP,7-8 BODY REGN 6. Somatic dysfunction of thoracic region M99.02 OSTEOPATHIC MANIP,7-8 BODY REGN 7. Somatic dysfunction of sacral region M99.04 OSTEOPATHIC MANIP,7-8 BODY REGN 8. Somatic dysfunction of pelvis region M99.05 OSTEOPATHIC MANIP,7-8 BODY REGN 9. Somatic dysfunction of rib M99.08 OSTEOPATHIC MANIP,7-8 BODY REGN 10. Somatic dysfunction of lumbar region M99.03 OSTEOPATHIC MANIP,7-8 BODY REGN Office Visit on 12/02/21 OSTEOPATHIC MANIP,7-8 BODY REGN Based on the history and physical exam findings, Osteopathic manipulative treatment was indicated, verbal consent was obtained and the following procedures were performed: Area of greatest dysfunction: sacrum Osteopathic Diagnosis, Treatment, Result Somatic Dysfunction Head M99.00 OA F SlRr treated with traction FPR and muscle energy (oculocephalogyric reflex) Improved Somatic Dysfunction Cervical M99.01 suboccipital hypertonicity treated with direct MFR Improved Somatic Dysfunction Thoracic M99.02 T5 right rotated side bent left treated with BLT, HTP over lefttrapezius treated with indirect and direct FDM Improved Somatic Dysfunction Ribs M99.08 left rib 1 exhaled treated with Still's method; right rib 2 posterior treated with muscle energy Improved Somatic Dysfunction Lumbar M99.03 L4 flexed rotated left side bent left treated with BLT Improved Somatic Dysfunction Pelvic M99.05 Left innominate up slip treated with leg tug Improved Somatic Dysfunction Sacral M99.04 Left unilateral flexion treated with BLT Improved Outcome of treatment relative to chief complaint: decreased pain/tenderness of sacrum and improved ROM Additional Comments: Recommend: Use of ice on herniated trigger point region stay away from heat DATA REVIEWED N/A COUNSELED PATIENT ON I counseled patient on their specific diagnosis listed above. I counseled patient on the recommendations listed above. I counseled patient on the risks and benefits of OMT. After visit summary was reviewed with the patient. I counseled the patient to do home exercises if indicated. Return for re-evaluation of Pain/Somatic Dysfunction. Will provide OMT if indicated. Start time: 440; end time: 549 Time Spent (min): 69 I spent a total of 25 minutes on the date of the service which included preparing to see the patient, [id number] patient care, completing clinical documentation, obtaining and/or reviewing separately obtained history, performing a medically appropriate examination, counseling and educating the pat ient/family/caregiver, communicating results to the patient/family/caregiver, and care coordination(not separately reported). 34 minutes on the date of service were spent on the procedure as specified above. The above conditions, differential diagnoses, treatment plans, and significant side effects of the medications were discussed. The patient verbalizes understanding of the above assessments and treatment, and she has been instructed to call our office if any medical issues arise. Patient seen and evaluated with Dr. Ram; please see their attestation. Maxim Lou DO 8:46 AM 12/02/2021 This note was partially generated using voice recognition software. It has been reviewed for typographical errors, however some may remain. Any questions regarding meaning or word use should be directed to the author. On the date above, I interviewed and examined the patient. I was present for the arango component of the exam and treatment and I fully participated in Margot Hu's care. I discussed the management with the residents, Drs. Maxim Lou and Tanika Alves . I reviewed the note above and I agree with and confirm those findings as well as the plan of care. I reviewed the labs and the recent notes in [facility]. I have edited the note based on my personal assessment of the patient. My edits are represented by deletions and italic additions. I agree with the work-up as detailed in the resident's note above. Elizabeth Ram D.O., Alix-ONEYAD, C-FM [employer] Salesperson, Osteopathic Neuromusculoskeletal Medicine Residency [facility] documented in this encounterPark[facility] History of Present illness Narrative* Priti Castillo DO - 10/07/2021 9:00 AM EDT Outpatient consult PROGRESS NOTE (OMM) Name: Margot Hu, Gender: female, : 1970, Age: [age] year old Date of Exam: October 07, 2021 Ama Hamilton MD is the PCP for this patient. I am seeing this patient for neuromusculoskeletal evaluation and if indicated, osteopathic manipulative treatment, and am returning the patient to Ama Hamilton MD for primary care. History of Present Illness: Chief Complaint: This is a 50 year old female . Patient presents with: Back Pain Last OV: 09/16/2021 Patient presents today to follow-up for SI joint pain States that for 2 days after treatment was very sore However following that she had up until last Sunday States she jumped into a pool and while climbing out of felt pain in her right sacrum States that improved by doing stretching and range of motion exercises Denies any pain today states that her low back feels tight Review of Systems: Review of Systems sheet reviewed and discussed with patient. Pertinent positives bold as below, otherwise negative: GEN: No fever, chills or unintentional weight loss, recent falls or trauma, night sweats, or recentillness EENT: No vision changes, eye pain, sudden changes in hearing, ear pain, runny nose, sore throat CV: No chest pain or palpitation RESP: No shortness of breath or cough NEURO: No numbness, weakness, tingling, loss of bowel or bladder sensation, new or different headache, dizziness GI: No abdominal pain, nausea, vomiting, reflux or heartburn, diarrhea, constipation, melena, hematochezia : No loss of bowel or bladder control, dysuria or hematuria Musc: No new or different back pain, new or different joint pain: Heme: Denies personal history of cancer Psych: Denies mood changes, thoughts of harming self or others Medication changes: None All other systems reviewed and negative. Reviewed: Meds, problem list, allergies Social History: reports that she has never smoked. She has never used smokeless tobacco. She reports current alcohol use. She reports that she does not use drugs. 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 GEN: no acute distress alert and oriented HEAD: NC, AT Eyes: conjunctiva clear, sclera non icteric Throat: MMM Neck: supple, paraspinal hypertonicity Cardiovascular: no cyanosis, cap refill grossly intact Respiratory: no respiratory distress or accessory muscle use Abdomen: soft non tender Integument no lesions or rashes noted Psychological: normal mood and affect Musculoskeletal: Bilateral hypertonic tender lumbar paraspinal muscles Lumbar passive range of motion grossly intact in all planes No tenderness in SI joints bilaterally Neurological: No focal neurological deficits Osteopathic Structural Exam: See specific diagnoses above Lumbar lordosis: increase paraspinal hypertonicity Pelvis: asymmetry of ASIS Sacrum: asymmetry of sacral base Ribs: restriction to motion with respiration Lower extremity: leg length functional discrepancy and tissue texture changes Abdomen: restriction of abdominal diaphragm with respiration Assessment/Plan: Complicating diagnoses that impact the patient's function include: Encounter Diagnosis ICD-10-CM 1. Acute bilateral low back pain without sciatica M54.50 OSTEOPATHIC MANIP,5-6 BODY REGN 2. SI (sacroiliac) joint dysfunction M53.3 OSTEOPATHIC MANIP,5-6 BODY REGN 3. Somatic dysfunction of lumbar region M99.03 OSTEOPATHIC MANIP,5-6 BODY REGN 4. Somatic dysfunction of pelvis region M99.05 OSTEOPATHIC MANIP,5-6 BODY REGN 5. Somatic dysfunction of lower extremity M99.06 OSTEOPATHIC MANIP,5-6 BODY REGN 6. Somatic dysfunction of abdominal region M99.09 OSTEOPATHIC MANIP,5-6 BODY REGN 7. Somatic dysfunction of rib region M99.08 OSTEOPATHIC MANIP,5-6 BODY REGN Office Visit on 10/07/21 OSTEOPATHIC MANIP,5-6 BODY REGN Based on the history and physical exam findings, Osteopathic manipulative treatment was indicated, verbal consent was obtained and the following procedures were performed: Consider XR for lumbar spine if pain persists Also could consider repeat PT if no improvement Osteopathic Diagnosis, Treatment, Result Somatic Dysfunction Lumbar M99.03 L2 ERS right treated with balanced ligamentous tension with respiratory cooperation Bilateral lumbar paraspinal restrictions treated with soft tissue Improved Somatic Dysfunction Pelvic M99.05 Right inferior and left superior pubic shear treated with stills technique, right iliac S restriction treated with strain counterstrain Improved Somatic Dysfunction Lower Extremity M99.06 Right hamstring restriction treated with soft tissue, right subtalar joint inversion and anterior right talus treated with balanced ligamentous tension, CD lateral right ankle and right posterior medial leg trigger band treated with fascial distortion model Improved Somatic Dysfunction Ribs M99.08 Right. 12th rib treated with balanced ligamentous tension Improved Somatic Dysfunction Other/Abdomen M99.09 Abdominal diaphragm rotated right treated with Bioelectricfascial activation and release Improved Outcome of treatment relative to chief complaint: decreased pain and improved ROM Additional Comments: Recommend: Exercise prescription: Continue hamstring stretch and bilateral psoas stretch DATA REVIEWED I personally reviewed the last progress note in [facility]. COUNSELED PATIENT ON I counseled patient on their specific diagnosis listed above. I counseled patient on the recommendations listed below. After visit summary was reviewed with the patient. Medical Decision Making: Problems: Moderate: 1+ chronic illnesses with change Risk: Low: Low risk from testing/treatment Medical Decision Making Level: 3 - Low Return in about 3 months (around 01/07/2022). The above conditions, differential diagnoses, treatment plans, and significant side effects of the medications were discussed. The patient verbalizes understanding of the above assessments and treatment, and she has been instructed to call our office if any medical issues arise. Patient was seen and evaluated with Dr. Jonathan Bassett DO 9:00 AM 10/07/2021 On the date above, I interviewed and examined the patient. I was present for the arango exam and treatment and I fully participated in Margot Hu's care. I discussed the management with the resident, Dr. Bassett. I reviewed the note above and I agree with and confirm those findings as well as the plan of care. I reviewed the labs and the recent notes in [facility]. I have edited the note based on mypersonal assessment of the patient. My edits are represented by and italic additions. I agree with the work-up as detailed in the resident's note above. Priti Castillo DO October 07, 2021 12:38 PM documented in this encounterPark[facility] History of Present illness Narrative* Buzz Charles DO - 09/16/2021 9:00 AM EDT Outpatient consult PROGRESS NOTE (OMM) Name: Margot Hu, Gender: female, : 1970, Age: [age] year old Date of Exam: September 16, 2021 Ama Hamilton MD is the PCP for this patient. I am seeing this patient for neuromusculoskeletal evaluation and if indicated, osteopathic manipulative treatment, and am returning the patient to Ama Hamilton MD for primary care. History of Present Illness: Chief Complaint: This is a 50 year old female . 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 States she was running and jumped up on a curve when the pain happened Hx of right ankle inversion injury in [employer] Review of Systems: Review of Systems sheet reviewed and discussed with patient. Pertinent positives bold as below, otherwise negative: GEN: No fever, chills or unintentional weight loss, recent falls or trauma, night sweats, or recentillness EENT: No vision changes, eye pain, sudden changes in hearing, ear pain, runny nose, sore throat CV: No chest pain or palpitation RESP: No shortness of breath or cough NEURO: No numbness, weakness, tingling, loss of bowel or bladder sensation, new or different headache, dizziness GI: No abdominal pain, nausea, vomiting, reflux or heartburn, diarrhea, constipation, melena, hematochezia : No loss of bowel or bladder control, dysuria or hematuria Musc: No new or different back pain, new or different joint pain: Heme: Denies personal history of cancer Psych: Denies mood changes, thoughts of harming self or others Medication changes: None All other systems reviewed and negative. Reviewed: Meds, problem list, allergies Social History: reports that she has never smoked. She has never used smokeless tobacco. She reports current alcohol use. She reports that she does not use drugs. 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 GEN: no acute distress alert and oriented HEAD: NC, AT Eyes: conjunctiva clear, sclera non icteric Throat: MMM Neck: supple, paraspinal hypertonicity Cardiovascular: no cyanosis, cap refill grossly intact Respiratory: no respiratory distress or accessory muscle use Abdomen: soft non tender Integument no lesions or rashes noted Psychological: normal mood and affect Musculoskeletal: Decreased lumbar lordosis Right SI joint TTP + right standing flexion test + talar tilt test on right Neurological: No focal neurological deficits Osteopathic Structural Exam: See specific diagnoses above Head: decreased CRI Cervical lordosis: increased paraspinal hypertonicity Thoracic kyphosis: increased thoracic kyphosis Lumbar lordosis: increase paraspinal hypertonicity Pelvis: asymmetry of ASIS Sacrum: asymmetry of sacral base Lower extremity: leg length functional discrepancy and tissue texture changes Assessment/Plan: Complicating diagnoses that impact the patient's function include: Encounter Diagnosis ICD-10-CM 1. SI (sacroiliac) joint dysfunction M53.3 OSTEOPATHIC MANIP,5-6 BODY REGN 2. Somatic dysfunction of spine, cervical M99.01 OSTEOPATHIC MANIP,5-6 BODY REGN 3. Somatic dysfunction of thoracic region M99.02 OSTEOPATHIC MANIP,5-6 BODY REGN 4. Somatic dysfunction of lumbar region M99.03 OSTEOPATHIC MANIP,5-6 BODY REGN 5. Somatic dysfunction of sacral region M99.04 OSTEOPATHIC MANIP,5-6 BODY REGN 6. Somatic dysfunction of pelvis region M99.05 OSTEOPATHIC MANIP,5-6 BODY REGN 7. Somatic dysfunction of lower extremity M99.06 OSTEOPATHIC MANIP,5-6 BODY REGN Office Visit on 09/16/21 OSTEOPATHIC MANIP,5-6 BODY REGN Based on the history and physical exam findings, Osteopathic manipulative treatment was indicated, verbal consent was obtained and the following procedures were performed: Osteopathic Diagnosis, Treatment, Result Somatic Dysfunction Cervical M99.01 C6 ERS right treated with balanced ligamentous tension Improved Somatic Dysfunction Thoracic M99.02 thoracic inlet rotated right treated with myofascial release, T8 ERS right treated with myofascial release Improved Somatic Dysfunction Lumbar M99.03 L5 ERS left treated with Articulatory technique, bl lumbar paraspinal restriction treated with soft tissue technique, right psoas restriction treated with strain counterstrain Improved Somatic Dysfunction Sacral M99.04 sacrum ESlRr treated with balanced ligamentous tension, right inferior pole restriction treated with fascial ligamentous release Improved Somatic Dysfunction Pelvic M99.05 right anterior innominate treated with balanced ligamentous tension and fascial ligamentous release Improved Somatic Dysfunction Lower Extremity M99.06 right anterior talus and inverted right subtalar joint restriction treated with balanced ligamentous tension and fascial ligamentous release Improved Outcome of treatment relative to chief complaint: decreased pain and improved ROM Additional Comments: DATA REVIEWED I personally reviewed the last progress note in [facility]. COUNSELED PATIENT ON I counseled patient on their specific diagnosis listed above. I counseled patient on the recommendations listed below. After visit summary was reviewed with the patient. Start time: 15; end time: 9:54 Time Spent (min): 39 I spent a total of 20 minutes on the date of the service which included preparing to see the patient, [id number] patient care, completing clinical documentation, obtaining and/or reviewing separately obtained history, performing a medically appropriate examination and counseling and educating the patient/family/caregiver. 19 minutes on the date of service were spent on the procedure as specified above. Return in about 2 months (around 11/16/2021). The above conditions, differential diagnoses, treatment plans, and significant side effects of the medications were discussed. The patient verbalizes understanding of the above assessments and treatment, and she has been instructed to call our office if any medical issues arise. Patient was seen and evaluated with Dr. Araceli Bassett, DO 9:11 AM 09/16/2021 On the date above, I was physically present and immediately available through the entire clinical encounter for the care of Margot Hu. I have discussed this patient's history, physical exam, diagnosis, and treatment with Dr. Bassett. I have reviewed and agree with the resident's documentation of these elements, and that the care provided was reasonable and necessary. I personally interviewed and examined the patient. I was personally present during the arango/critical portions of the patient's OMT, namely treatment of right psoas. I have edited the note based on my personal assessment of the patient. My edits are represented by deletions and italic additions. Buzz Noel Faculty, Osteopathic Neuromusculoskeletal Medicine Residency [facility] documented in this encounterPark[facility] History of Past illness Narrative* Problem Noted Date Resolved Date Thyroid mass 01/24/2017 06/07/2017 POTS (postural orthostatic tachycardia syndrome) 09/14/2013 06/07/2017 Muscle tear 04/23/2013 06/07/2017 Orthostatic hypotension 04/23/2013 06/08/19 18 Tachycardia 02/27/2013 06/07/2017 Abdominal pain, other specified site 02/27/2013 06/07/2017 Diarrhea 02/27/2013 06/07/2017 documented as of this encounter (statuses as of 09/16/2021) [facility] of Past illness Narrative* Problem Noted Date Resolved Date Thyroid mass 01/24/2017 06/07/2017 POTS (postural orthostatic tachycardia syndrome) 09/14/2013 06/07/2017 Muscle tear 04/23/2013 06/07/2017 Orthostatic hypotension 04/23/2013 06/08/19 18 Tachycardia 02/27/2013 06/07/2017 Abdominal pain, other specified site 02/27/2013 06/07/2017 Diarrhea 02/27/2013 06/07/2017 documented as of this encounter (statuses as of 10/07/2021) [facility] of [facility] illness Narrative* Problem Noted Date Resolved Date Thyroid mass 01/24/2017 06/07/2017 POTS (postural orthostatic tachycardia syndrome) 09/14/2013 06/07/2017 Muscle tear 04/23/2013 06/07/2017 Orthostatic hypotension 04/23/2013 06/08/19 18 Tachycardia 02/27/2013 06/07/2017 Abdominal pain, other specified site 02/27/2013 06/07/2017 Diarrhea 02/27/2013 06/07/2017 documented as of this encounter (statuses as of 12/02/2021) [facility] of [facility] illness Narrative* Problem Noted Date Resolved Date Thyroid mass 01/24/2017 06/07/2017 POTS (postural orthostatic tachycardia syndrome) 09/14/2013 06/07/2017 Muscle tear 04/23/2013 06/07/2017 Orthostatic hypotension 04/23/2013 06/08/19 18 Tachycardia 02/27/2013 06/07/2017 Abdominal pain, other specified site 02/27/2013 06/07/2017 Diarrhea 02/27/2013 06/07/2017 documented as of this encounter (statuses as of 01/06/2022) [facility] illness Narrative* Problem Noted Date Resolved Date Thyroid mass 01/24/2017 06/07/2017 POTS (postural orthostatic tachycardia syndrome) 09/14/2013 06/07/2017 Muscle tear 04/23/2013 06/07/2017 Orthostatic hypotension 04/23/2013 06/08/19 18 Tachycardia 02/27/2013 06/07/2017 Abdominal pain, other specified site 02/27/2013 06/07/2017 Diarrhea 02/27/2013 06/07/2017 documented as of this encounter (statuses as of 04/21/2022) [facility] Narrative* Problem Noted Date Resolved Date Thyroid mass 01/24/2017 06/07/2017 POTS (postural orthostatic tachycardia syndrome) 09/14/2013 06/07/2017 Muscle tear 04/23/2013 06/07/2017 Orthostatic hypotension 04/23/2013 06/08/19 18 Tachycardia 02/27/2013 06/07/2017 Abdominal pain, other specified site 02/27/2013 06/07/2017 Diarrhea 02/27/2013 06/07/2017 documented as of this encounter (statuses as of 05/19/2022) [facility] Narrative* Problem Noted Date Diagnosed Date Resolved Date Thyroid mass 01/24/2017 06/07/2017 POTS (postural orthostatic t achycardia syndrome) 09/14/2013 06/07/2017 Muscle tear 04/23/2013 06/07/2017 Orthostatic hypotension 04/23/201305/24 Tachycardia 02/27/2013 06/07/2017 Abdominal pain, other specified site 02/27/2013 06/07/2017 Diarrhea 02/27/2013 06/07/2017 documented as of this encounter (statuses as of 11/04/2022) [facility] Narrative* Problem Noted Date Diagnosed Date Resolved Date Thyroid mass 01/24/2017 06/07/2017 POTS (postural orthostatic t achycardia syndrome) 09/14/2013 06/07/2017 Muscle tear 04/23/2013 06/07/2017 Orthostatic hypotension 04/23/201305/24 Tachycardia 02/27/2013 06/07/2017 Abdominal pain, other specified site 02/27/2013 06/07/2017 Diarrhea 02/27/2013 06/07/2017 documented as of this encounter (statuses as of 01/02/2023) [facility] Narrative* Problem Noted Date Diagnosed Date Resolved Date Thyroid mass 01/24/2017 06/07/2017 POTS (postural orthostatic t achycardia syndrome) 09/14/2013 06/07/2017 Muscle tear 04/23/2013 06/07/2017 Orthostatic hypotension 04/23/201305/24 Tachycardia 02/27/2013 06/07/2017 Abdominal pain, other specified site 02/27/2013 06/07/2017 Diarrhea 02/27/2013 06/07/2017 documented as of this encounter (statuses as of 01/24/2023) [facility] Narrative* Problem Noted Date Diagnosed Date Resolved Date Thyroid mass 01/24/2017 06/07/2017 POTS (postural orthostatic t achycardia syndrome) 09/14/2013 06/07/2017 Muscle tear 04/23/2013 06/07/2017 Orthostatic hypotension 04/23/201305/24 Tachycardia 02/27/2013 06/07/2017 Abdominal pain, other specified site 02/27/2013 06/07/2017 Diarrhea 02/27/2013 06/07/2017 documented as of this encounter (statuses as of 03/07/2023) [facility] Narrative* Problem Noted Date Diagnosed Date Resolved Date Thyroid mass 01/24/2017 06/07/2017 POTS (postural orthostatic t achycardia syndrome) 09/14/2013 06/07/2017 Muscle tear 04/23/2013 06/07/2017 Orthostatic hypotension 04/23/201305/24 Tachycardia 02/27/2013 06/07/2017 Abdominal pain, other specified site 02/27/2013 06/07/2017 Diarrhea 02/27/2013 06/07/2017 documented as of this encounter (statuses as of 05/16/2023) [facility] Diagnosis SI (sacroiliac) joint dysfunction- Primary Disorders of sacrum Somatic dysfunction of spine, cervical Nonallopathic lesion of cervical region, not elsewhere classified Somatic dysfunction of thoracic region Nonallopathic lesion of thoracic region, not elsewhere classified Somatic dysfunction of lumbar region Nonallopathic lesion of lumbar region, not elsewhere classified Somatic dysfunction of sacral region Nonallopathic lesion of sacral region, not elsewhere classified Somatic dysfunction of pelvis region Nonallopathic lesion of pelvic region, not elsewhere classified Somatic dysfunction of lower extremity Nonallopathic lesion of lower extremities, not elsewhere classified [facility] Diagnosis Acute bilateral low back pain without sciatica- Primary SI (sacroiliac) joint dysfunction Disorders of sacrum Somatic dysfunction of lumbar region Nonallopathic lesion of lumbar region, not elsewhere classified Somatic dysfunction of pelvis region Nonallopathic lesion of pelvic region, not elsewhere classified Somatic dysfunction of lower extremity Nonallopathic lesion of lower extremities, not elsewhere classified Somatic dysfunction of abdominal region Somatic dysfunction of rib region [facility]* Diagnosis Onset Date Resolution Status Tinea versicolor noneactive Rash noneactive [facility] Work Phone: Evaluation note* Diagnosis Sacroiliac pain- Primary Disorders of sacrum Acute pain of right knee Neck pain Cervicalgia Somatic dysfunction of head region Somatic dysfunction of cervical region Nonallopathic lesion of cervical region, not elsewhere classified Somatic dysfunction of thoracic region Nonallopathic lesion of thoracic region, not elsewhere classified Somatic dysfunction of sacral region Nonallopathic lesion of sacral region, not elsewhere classified Somatic dysfunction of pelvis region Nonallopathic lesion of pelvic region, not elsewhere classified Somatic dysfunction of rib Somatic dysfunction of lumbar region Nonallopathic lesion of lumbar region, not elsewhere classified [facility]* Diagnosis Right knee pain, unspecified chronicity- Primary Pes anserine bursitis Pes anserinus tendinitis or bursitis Sacroiliac pain Disorders of sacrum Somatic dysfunction of sacral region Nonallopathic lesion of sacral region, not elsewhere classified Somatic dysfunction of pelvis region Nonallopathic lesion of pelvic region, not elsewhere classified Somatic dysfunction of lower extremity Nonallopathic lesion of lower extremities, not elsewhere classified Somatic dysfunction of lumbar region Nonallopathic lesion of lumbar region, not elsewhere classified [facility] Diagnosis Onset Date Resolution Status Pes anserinus bursitis of right knee acute [facility] Work Phone: Evaluation note* Diagnosis Sacroiliac pain- Primary Disorders of sacrum Right knee pain, unspecified chronicity Pes anserine bursitis Pes anserinus tendinitis or bursitis Neck pain Cervicalgia Somatic dysfunction of head region Somatic dysfunction of cervical region Nonallopathic lesion of cervical region, not elsewhere classified Somatic dysfunction of lumbar region Nonallopathic lesion of lumbar region, not elsewhere classified Somatic dysfunction of sacral region Nonallopathic lesion of sacral region, not elsewhere classified Somatic dysfunction of pelvis region Nonallopathic lesion of pelvic region, not elsewhere classified Somatic dysfunction of lower extremity Nonallopathic lesion of lower extremities, not elsewhere classified [facility] Diagnosis Onset Date Resolution Status Pes anserinus bursitis of right knee acute Pes anserinus bursitis of right knee acute Right knee pain acute Pes anserinus bursitis of right knee acute Right knee pain acute [facility] Work Phone: Evaluation note* Diagnosis Chronic left SI joint pain- Primary Disorders of sacrum Chronic pain of right knee Chronic midline low back pain without sciatica Somatic dysfunction of head region Somatic dysfunction of cervical region Nonallopathic lesion of cervical region, not elsewhere classified Somatic dysfunction of thoracic region Nonallopathic lesion of thoracic region, not elsewhere classified Somatic dysfunction of rib Somatic dysfunction of lumbar region Nonallopathic lesion of lumbar region, not elsewhere classified Somatic dysfunction of pelvis region Nonallopathic lesion of pelvic region, not elsewhere classified Somatic dysfunction of sacral region Nonallopathic lesion of sacral region, not elsewhere classified Somatic dysfunction of lower extremity Nonallopathic lesion of lower extremities, not elsewhere classified Somatic dysfunction of upper extremities Nonallopathic lesion of upper extremities, not elsewhere classified [facility] Diagnosis Onset Date Resolution Status Pes anserinus bursitis of right knee acute Right knee pain acute Pes anserinus bursitis of right knee acute Right knee pain acute Anxiety acute Menopausal hot flushes acute POTS (postural orthostatic tachycardia syndrome) chronic [facility] Work Phone: Evaluation note* Diagnosis Onset Date Resolution Status Pes anserinus bursitis of right knee acute Right knee pain acute Pes anserinus bursitis of right knee acute Right knee pain acute Anxiety acute Menopausal hot flushes acute POTS (postural orthostatic tachycardia syndrome) chronic Female climacteric state acu te [facility] Work Phone: Evaluation note* Diagnosis Onset Date Resolution Status Female climacteric state acu te Cellulitis acute Anxiety chronic Menopausal hot flushes chron ic [facility] Work Phone: Evaluation note* Diagnosis Neck pain- Primary Cervicalgia Chronic right SI joint pain Disorders of sacrum Chronic left SI joint pain Disorders of sacrum Right knee pain, unspecified chronicity Somatic dysfunction of head region Somatic dysfunction of cervical region Nonallopathic lesion of cervical region, not elsewhere classified Somatic dysfunction of thoracic region Nonallopathic lesion of thoracic region, not elsewhere classified Somatic dysfunction of lumbar region Nonallopathic lesion of lumbar region, not elsewhere classified Somatic dysfunction of sacral region Nonallopathic lesion of sacral region, not elsewhere classified Somatic dysfunction of pelvis region Nonallopathic lesion of pelvic region, not elsewhere classified Somatic dysfunction of rib Somatic dysfunction of upper extremity Somatic dysfunction of lower extremity Nonallopathic lesion of lower extremities, not elsewhere classified [facility] Diagnosis Neck pain- Primary Cervicalgia Chronic right SI joint pain Disorders of sacrum Chronic right shoulder pain Pain in joint, shoulder region Somatic dysfunction of head region Somatic dysfunction of cervical region Nonallopathic lesion of cervical region, not elsewhere classified Somatic dysfunction of thoracic region Nonallopathic lesion of thoracic region, not elsewhere classified Somatic dysfunction of lumbar region Nonallopathic lesion of lumbar region, not elsewhere classified Somatic dysfunction of sacral region Nonallopathic lesion of sacral region, not elsewhere classified Somatic dysfunction of upper extremity Somatic dysfunction of rib [facility] Diagnosis Chronic right shoulder pain- Primary Pain in joint, shoulder region Chronic right SI joint pain Disorders of sacrum Somatic dysfunction of head region Somatic dysfunction of thoracic region Nonallopathic lesion of thoracic region, not elsewhere classified Somatic dysfunction of lumbar region Nonallopathic lesion of lumbar region, not elsewhere classified Somatic dysfunction of sacral region Nonallopathic lesion of sacral region, not elsewhere classified Somatic dysfunction of pelvis region Nonallopathic lesion of pelvic region, not elsewhere classified Somatic dysfunction of upper extremity [facility] Diagnosis Tendinopathy of gluteus medius- Primary Chronic right SI joint pain Disorders of sacrum Somatic dysfunction of thoracic region Nonallopathic lesion of thoracic region, not elsewhere classified Somatic dysfunction of lumbar region Nonallopathic lesion of lumbar region, not elsewhere classified Somatic dysfunction of sacral region Nonallopathic lesion of sacral region, not elsewhere classified Somatic dysfunction of pelvis region Nonallopathic lesion of pelvic region, not elsewhere classified Somatic dysfunction of lower extremity Nonallopathic lesion of lower extremities, not elsewhere classified [facility] Diagnosis Neck pain- Primary Cervicalgia Tendinopathy of gluteus medius It band syndrome, right Left arm pain Pain in limb Somatic dysfunction of cervical region Nonallopathic lesion of cervical region, not elsewhere classified Somatic dysfunction of thoracic region Nonallopathic lesion of thoracic region, not elsewhere classified Somatic dysfunction of lumbar region Nonallopathic lesion of lumbar region, not elsewhere classified Somatic dysfunction of sacral region Nonallopathic lesion of sacral region, not elsewhere classified Somatic dysfunction of pelvis region Nonallopathic lesion of pelvic region, not elsewhere classified Somatic dysfunction of lower extremity Nonallopathic lesion of lower extremities, not elsewhere classified Somatic dysfunction of upper extremity [facility] Diagnosis Onset Date Resolution Status Preventative health care acu te Tinnitus acute Anxiety chronic POTS (postural orthostatic tachycardia syndrome) chronic [facility] Work Phone: Evaluation note* Diagnosis Chronic right SI joint pain- Primary Disorders of sacrum Neck pain Cervicalgia Somatic dysfunction of head region Somatic dysfunction of cervical region Nonallopathic lesion of cervical region, not elsewhere classified Somatic dysfunction of thoracic region Nonallopathic lesion of thoracic region, not elsewhere classified Somatic dysfunction of lumbar region Nonallopathic lesion of lumbar region, not elsewhere classified Somatic dysfunction of sacral region Nonallopathic lesion of sacral region, not elsewhere classified Somatic dysfunction of pelvis region Nonallopathic lesion of pelvic region, not elsewhere classified Somatic dysfunction of lower extremity Nonallopathic lesion of lower extremities, not elsewhere classified [facility] Diagnosis Onset Date Resolution Status Preventative health care acu te Tinnitus acute Anxiety chronic POTS (postural orthostatic tachycardia syndrome) chronic Polyp of cervix uteri acute Postmenopausal bleeding acut e Encounter for routine gynecological examination noneactive [facility] Work Phone: Evaluation note* Diagnosis Finger pain, right- Primary Pain in limb It band syndrome, right Chronic pain of left knee Pain in joint, lower leg Neck pain Cervicalgia Somatic dysfunction of head region Somatic dysfunction of cervical region Nonallopathic lesion of cervical region, not elsewhere classified Somatic dysfunction of thoracic region Nonallopathic lesion of thoracic region, not elsewhere classified Somatic dysfunction of lumbar region Nonallopathic lesion of lumbar region, not elsewhere classified Somatic dysfunction of pelvis region Nonallopathic lesion of pelvic region, not elsewhere classified Somatic dysfunction of lower extremity Nonallopathic lesion of lower extremities, not elsewhere classified Somatic dysfunction of upper extremity [facility] Diagnosis Foreign body of right hand, initial encounter- Primary Injury of right hand, initial encounter Need for tetanus booster Need for prophylactic vaccination with tetanus toxoid alone [facility] Diagnosis Puncture wound of right hand with foreign body, initial encounter- Primary Injury of right hand, initial encounter [facility] Diagnosis Puncture wound of right hand with foreign body, subsequent encounter- Primary [facility] Diagnosis Chronic right SI joint pain- Primary Disorders of sacrum Tendinopathy of gluteus medius Right hand pain Pain in limb Somatic dysfunction of cervical region Nonallopathic lesion of cervical region, not elsewhere classified Somatic dysfunction of thoracic region Nonallopathic lesion of thoracic region, not elsewhere classified Somatic dysfunction of lumbar region Nonallopathic lesion of lumbar region, not elsewhere classified Somatic dysfunction of sacral region Nonallopathic lesion of sacral region, not elsewhere classified Somatic dysfunction of pelvis region Nonallopathic lesion of pelvic region, not elsewhere classified Somatic dysfunction of upper extremity [facility] Diagnosis Finger pain, right- Primary Pain in limb Chronic right SI joint pain Disorders of sacrum Somatic dysfunction of head region Somatic dysfunction of cervical region Nonallopathic lesion of cervical region, not elsewhere classified Somatic dysfunction of thoracic region Nonallopathic lesion of thoracic region, not elsewhere classified Somatic dysfunction of lumbar region Nonallopathic lesion of lumbar region, not elsewhere classified Somatic dysfunction of sacral region Nonallopathic lesion of sacral region, not elsewhere classified Somatic dysfunction of pelvis region Nonallopathic lesion of pelvic region, not elsewhere classified Somatic dysfunction of upper extremity [facility] Diagnosis Puncture wound of right hand with foreign body, subsequent encounter- Primary [facility] Diagnosis Chronic right SI joint pain- Primary Disorders of sacrum Finger pain, right Pain in limb Somatic dysfunction of head region Somatic dysfunction of cervical region Nonallopathic lesion of cervical region, not elsewhere classified Somatic dysfunction of thoracic region Nonallopathic lesion of thoracic region, not elsewhere classified Somatic dysfunction of lumbar region Nonallopathic lesion of lumbar region, not elsewhere classified Somatic dysfunction of sacral region Nonallopathic lesion of sacral region, not elsewhere classified Somatic dysfunction of pelvis region Nonallopathic lesion of pelvic region, not elsewhere classified Somatic dysfunction of upper extremity Need for influenza vaccination Need for prophylactic vaccination and inoculation against influenza Need for vaccination Need for prophylactic vaccination and inoculation against unspecified single disease Somatic dysfunction of rib [facility] Diagnosis Ischial bursitis of right side- Primary Chronic right SI joint pain Disorders of sacrum Finger pain, right Pain in limb Somatic dysfunction of cervical region Nonallopathic lesion of cervical region, not elsewhere classified Somatic dysfunction of thoracic region Nonallopathic lesion of thoracic region, not elsewhere classified Somatic dysfunction of lumbar region Nonallopathic lesion of lumbar region, not elsewhere classified Somatic dysfunction of sacral region Nonallopathic lesion of sacral region, not elsewhere classified Somatic dysfunction of pelvis region Nonallopathic lesion of pelvic region, not elsewhere classified Somatic dysfunction of upper extremity [facility] Diagnosis Pain- Primary Generalized pain [facility] Diagnosis Ischial bursitis of right side- Primary Finger pain, right Pain in limb Somatic dysfunction of head region Somatic dysfunction of cervical region Nonallopathic lesion of cervical region, not elsewhere classified Somatic dysfunction of thoracic region Nonallopathic lesion of thoracic region, not elsewhere classified Somatic dysfunction of lumbar region Nonallopathic lesion of lumbar region, not elsewhere classified Somatic dysfunction of sacral region Nonallopathic lesion of sacral region, not elsewhere classified Somatic dysfunction of pelvis region Nonallopathic lesion of pelvic region, not elsewhere classified Somatic dysfunction of upper extremity Somatic dysfunction of lower extremity Nonallopathic lesion of lower extremities, not elsewhere classified [facility] Diagnosis Ischial bursitis of right side- Primary [facility] Diagnosis Pain Generalized pain [facility] Diagnosis Ischial bursitis of right side [facility] Diagnosis Influenza- Primary Influenza with other respiratory manifestations POTS (postural orthostatic tachycardia syndrome) Tachycardia, unspecified [facility] Diagnosis Ischial bursitis of right side- Primary [facility] Diagnosis Ischial bursitis of right side- Primary [facility] Diagnosis Rib pain on left side- Primary Chest pain, unspecified Chronic right shoulder pain Pain in joint, shoulder region Chronic right SI joint pain Disorders of sacrum Somatic dysfunction of head region Somatic dysfunction of cervical region Nonallopathic lesion of cervical region, not elsewhere classified Somatic dysfunction of thoracic region Nonallopathic lesion of thoracic region, not elsewhere classified Somatic dysfunction of lumbar region Nonallopathic lesion of lumbar region, not elsewhere classified Somatic dysfunction of sacral region Nonallopathic lesion of sacral region, not elsewhere classified Somatic dysfunction of pelvis region Nonallopathic lesion of pelvic region, not elsewhere classified Somatic dysfunction of rib Somatic dysfunction of upper extremity [facility]* Diagnosis Hamstring tendinitis of right thigh- Primary Pain of right hip Ischial bursitis of right side [facility] Diagnosis Chronic right SI joint pain- Primary Disorders of sacrum Rib pain on left side Chest pain, unspecified Somatic dysfunction of head region Somatic dysfunction of lumbar region Nonallopathic lesion of lumbar region, not elsewhere classified Somatic dysfunction of sacral region Nonallopathic lesion of sacral region, not elsewhere classified Somatic dysfunction of pelvis region Nonallopathic lesion of pelvic region, not elsewhere classified Somatic dysfunction of rib Somatic dysfunction of lower extremity Nonallopathic lesion of lower extremities, not elsewhere classified [facility] Diagnosis Ischial bursitis of right side Hamstring tendinitis of right thigh [facility]* Diagnosis Acetabular labrum tear, right, subsequent encounter- [facility]* 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 Location: None Selected [facility] Work Phone: Reason for referral (narrative)* Diagnostic Procedure Only (Routine) - Authorized Specialty Diagnoses / Procedures Referred By Contac t Referred To Contact XR IMAGING Diagnoses Pain Procedures XR HIP GENERAL 3V PELV/AP/LAT RIGHT RADEX HIP UNILATERAL WITH PELVIS 2-3 VIEWS Sarah Wynn MD [address] [place] [address] Xr Imaging [place] [address] Referral ID Status Reason Start Date Expiration Date Visits Requested Visits Authorized [id number] Authorized Auto-Generat ed Referral 04/01/2024 05/01/2025 1 1 [facility] for referral (narrative)* Diagnostic Procedure Only (Routine) - New Request Specialty Diagnoses / Procedures Referred By Contac t Referred To Contact US IMAGING Diagnoses Ischial bursitis of right side Procedures US ASP/INJ HIP JT/BURSA RIGHT ARTHROCENTESIS ASPIR&/INJ MAJOR JT/BURSA W/US Sarah Wynn MD [address] [place] [address] [place] [address] Referral ID Status Reason Start Date Expiration Date Visits Requested Visits Authorized [id number] New Request Auto-Generat ed Referral 04/16/2024 05/16/2025 1 1 [facility] for referral (narrative)* Diagnostic Procedure Only (Routine) - Closed Specialty Diagnoses / Procedures Referred By Contac t Referred To Contact XR IMAGING Diagnoses Pain Procedures XR HIP GENERAL 3V PELV/AP/LAT RIGHT RADEX HIP UNILATERAL WITH PELVIS 2-3 VIEWS Sarah Wynn MD [address] [place] [address] Xr Imaging [id number] Referral ID Status Reason Start Date Expiration Date V isits Requested Visits Authorized [id number] Closed Auto-Generate d Referral 04/01/2024 05/01/2025 1 1 [facility] for visit Narrative* Diagnostic Procedure Only (Routine) - Closed Specialty Diagnoses / Procedures Referred By Contac t Referred To Contact XR IMAGING Diagnoses Pain Procedures XR HIP GENERAL 3V PELV/AP/LAT RIGHT RADEX HIP UNILATERAL WITH PELVIS 2-3 VIEWS Sarah Wynn MD [address] [place] [address] [place] [address] Referral ID Status Reason Start Date Expiration Date V isits Requested Visits Authorized [id number] Closed Auto-Generate d Referral 04/01/2024 05/01/2025 1 1 [facility] for visit Narrative* Diagnostic Procedure Only (Routine) - Closed Specialty Diagnoses / Procedures Referred By Lorraine gore Referred To Contact US IMAGING Diagnoses Ischial bursitis of right side Procedures US ASP/INJ HIP JT/BURSA RIGHT ARTHROCENTESIS ASPIR&/INJ MAJOR JT/BURSA W/US Sarah Wynn MD [address] [place] [address] Phone: tel: fax: [place] [address] Referral ID Status Reason Start Date Expiration Date V isits Requested Visits Authorized [id number] Closed Auto-Generate d Referral 04/16/2024 05/16/2025 1 1 [facility] for visit Narrative* Diagnostic Procedure Only (Routine) - Closed Specialty Diagnoses / Procedures Referred By Lorraine gore Referred To Contact US IMAGING Diagnoses Ischial bursitis of right side Hamstring tendinitis of right thigh Procedures US HIP RIGHT US COMPL JOINT R-T W/IMAGE DOCUMENTATION Sarah Wynn MD [address] [place] [address] Phone: tel: fax: [place] [id number] Referral ID Status Reason Start Date Expiration Date V isits Requested Visits Authorized [id number] Closed Auto-Generate d Referral 07/30/2024 08/29/2025 1 1 [facility] Summary Purpose Family History Relationship Condition Age at Onset Recorded Date/T mateo mother Cardiac disease Unknown Hypertension Unknown father Hypertension Unknown Arthritis Unknown Anxiety Unknown Hyperlipidemia Unknown grandfather Myocardial infarction 60 aunt Myocardial infarction 75 Chronic lymphocytic leukemia Unknown Advance Directives Documents on File Type Date Recorded 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 No February 23, 2022 10:51am Chief Complaint and Reason for Visit Chief Complaint Rash Reason for Visit Tinea versicolor Rash Chief Complaint BURSITIS OF KNEE PAT IENT HAS RX RIGHT KNEE EORDER-right knee pain n/v Reason for Visit Pes anserinus bursit is of right knee Chief Complaint RIGHT KNEE EORDER-right knee pain n/v [facility] FU/FLU BURSITIS OF KNEE PATIENT HAS RX Reason for Visit Pes anserinus bursit is of right knee Chief Complaint RIGHT KNEE EORDER-right knee pain n/v [facility] ER FU/FLU RIGHT KNEE BURSITIS OF KNEE PATIENT HAS RX PAIN RIGHT KNEE RIGHT KNEE Reason for Visit Pes anserinus bursit is of right knee Pes anserinus bursitis of right knee Right knee pain Pes anserinus bursitis of right knee Right knee pain Chief Complaint n/v [facility] ER FU/FLU RIGHT KNEE BURSITIS OF KNEE PATIENT HAS RX PAIN RIGHT KNEE RIGHT KNEE yearly check up Reason for Visit Pes anserinus bursit is of right knee Right knee pain Pes anserinus bursitis of right knee Right knee pain Anxiety Menopausal hot flushes POTS (postural orthostatic tachycardia syndrome) Chief Complaint RIGHT KNEE BURSITIS OF KNEE PATIENT HAS RX PAIN RIGHT KNEE RIGHT KNEE yearly check up Menopause consult, ref by Dr. Hamilton SCREENING Reason for Visit Pes anserinus bursit is of right knee Right knee pain Pes anserinus bursitis of right knee Right knee pain Anxiety Menopausal hot flushes POTS (postural orthostatic tachycardia syndrome) Female climacteric state Chief Complaint Menopause consult, r ef by Dr. Hamilton SCREENING 3 M FU Reason for Visit Female climacteric s lobato Cellulitis Anxiety Menopausal hot flushes Chief Complaint 6 M FU DEEP GLUTEAL SYNDROME / PT HAS RX Reason for Visit Preventative health care Tinnitus Anxiety POTS (postural orthostatic tachycardia syndrome) Chief Complaint 6 M FU DEEP GLUTEAL SYNDROME / PT HAS RX Annual ([employer]) PAP Reason for Visit Preventative health care Tinnitus Anxiety POTS (postural orthostatic tachycardia syndrome) Polyp of cervix uteri Postmenopausal bleeding Encounter for routine gynecological examination Chief Complaint Admit Date BURSITIS FOLLOW UP March 05, 2024 7:22am 1 Y FU June 05, 2024 4:5 5pm Left Axillary Pain June 25, 2024 8:36 am Reason for Visit Admit Date Ischial bursitis of right side March 05, 2024 7:22am Health care maintenance June 05, 2024 4:55pm Allergies June 05, 2024 4:5 5pm IBS (irritable bowel syndrome) May 4:55pm Menopausal hot flushes June 05, 2024 4:55pm Pain in left axilla June 05, 2024 4:5 5pm POTS (postural orthostatic tachycardia s yndrome) June 05, 2024 4:55pm Tinnitus of both ears June 05, 2024 4 :55pm Reason for Referral Specialty Diagnoses / Procedures Referred By Contac t Referred To Contact [facility] Diagnoses Pes anserine bursitis Right knee pain, unspecified chronicity Procedures CONSULT TO PHYSICAL THERAPY [facility] 45 MINS Buzz Charles DO [address] [place] [address] [facility] [place] [address] [place] [address] Referral ID Status Reason Start Date Expiration Date Visits Requested Visits Authorized [id number] Pending Review Auto-Generat ed Referral 01/06/2023 1 1 Specialty Diagnoses / Procedures Referred By Contac t Referred To Contact Orthopedics Diagnoses Injury of right hand, initial encounter Procedures CONSULT TO ORTHOPAEDICS OFFICE/OUTPATIENT [facility] [place] 60 MINUTES Antonio Vivar APRN.GARMENT MANUFACTURER [address] [place] [address] Referral ID Status Reason Start Date Expiration Date Visits Requested Visits Authorized [id number] Pending Review PCP Requested Referral 10/25/2023 10/24/2024 1 1 Specialty Diagnoses / Procedures Referred By Contac t Referred To Contact XR IMAGING Diagnoses Injury of right hand, initial encounter Procedures XR HAND GENERAL 3V PA/LAT/OBL RIGHT RADEX HAND MINIMUM 3 VIEWS Antonio Vivar APRN.GARMENT MANUFACTURER [address] [place] [address] Xr Imaging [facility] Referral ID Status Reason Start Date Expiration Date V isits Requested Visits Authorized [id number] Closed Auto-Generate d Referral 10/25/2023 11/23/2024 1 1 Additional Source Comments INFORMATION SOURCE (unrecogn ized section and content) DATE CREATED AUTHOR 09/14/2017 [facility] DATE CREATED AUTHOR AUTHOR'S ORGANIZ ATION 09/18/2017 [facility] DATE CREATED AUTHOR AUTHOR'S ORGANIZ ATION 06/27/2018 [facility] DATE CREATED AUTHOR AUTHOR'S ORGANIZ ATION 12/09/2023 [facility] DATE CREATED AUTHOR AUTHOR'S ORGANIZ ATION 08/13/2024 [facility] DATE CREATED AUTHOR AUTHOR'S ORGANIZ ATION 09/01/2024 [facility] DATE CREATED AUTHOR AUTHOR'S ORGANIZ ATION 09/05/2024 [facility] Source Comments (unrecognize d section and content) In the event this informatio n is protected by the Federal Confidentiality of Alcohol and Drug Abuse Patient Records regulations: The Federal rules restrict any use of the information to criminally investigate or prosecute any alcohol or drug abuse patient.[facility] Hospital[facility] the event this information is protected by the Federal Confidentiality of Alcohol and Drug Abuse Patient Records regulations: The Federal rules restrict any use of the information to criminally investigate or prosecute any alcohol or drug abuse patient.[facility] HospitalIn the event this information is protected by the Federal Confidentiality of Alcohol and Drug Abuse Patient Records regulations: The Federal rules restrict any use of the information to criminally investigate or prosecute any alcohol or drug abuse patient.[facility] HospitalIn the event this information is protected by the Federal Confidentiality of Alcohol and Drug Abuse Patient Records regulations: The Federal rules restrict any use of the information to criminally investigate or prosecute any alcohol or drug abuse patient.[facility] HospitalIn the event this information is protected by the Federal Confidentiality of Alcohol and Drug Abuse Patient Records regulations: The Federal rules restrict any use of the information to criminally investigate or prosecute any alcohol or drug abuse patient.[facility] HospitalIn the event this information is protected by the Federal Confidentiality of Alcohol and Drug Abuse Patient Records regulations: The Federal rules restrict any use of the information to criminally investigate or prosecute any alcohol or drug abuse patient.[facility] HospitalIn the event this information is protected by the Federal Confidentiality of Alcohol and Drug Abuse Patient Records regulations: The Federal rules restrict any use of the information to criminally investigate or prosecute any alcohol or drug abuse patient.[facility] HospitalIn the event this information is protected by the Federal Confidentiality of Alcohol and Drug Abuse Patient Records regulations: The Federal rules restrict any use of the information to criminally investigate or prosecute any alcohol or drug abuse patient.[facility] HospitalIn the event this information is protected by the Federal Confidentiality of Alcohol and Drug Abuse Patient Records regulations: The Federal rules restrict any use of the information to criminally investigate or prosecute any alcohol or drug abuse patient.[facility] HospitalIn the event this information is protected by the Federal Confidentiality of Alcohol and Drug Abuse Patient Records regulations: The Federal rules restrict any use of the information to criminally investigate or prosecute any alcohol or drug abuse patient.[facility] HospitalIn the event this information is protected by the Federal Confidentiality of Alcohol and Drug Abuse Patient Records regulations: The Federal rules restrict any use of the information to criminally investigate or prosecute any alcohol or drug abuse patient.[facility] HospitalIn the event this information is protected by the Federal Confidentiality of Alcohol and Drug Abuse Patient Records regulations: The Federal rules restrict any use of the information to criminally investigate or prosecute any alcohol or drug abuse patient.[facility] HospitalIn the event this information is protected by the Federal Confidentiality of Alcohol and Drug Abuse Patient Records regulations: The Federal rules restrict any use of the information to criminally investigate or prosecute any alcohol or drug abuse patient.[facility] HospitalIn the event this information is protected by the Federal Confidentiality of Alcohol and Drug Abuse Patient Records regulations: The Federal rules restrict any use of the information to criminally investigate or prosecute any alcohol or drug abuse patient.[facility] HospitalIn the event this information is protected by the Federal Confidentiality of Alcohol and Drug Abuse Patient Records regulations: The Federal rules restrict any use of the information to criminally investigate or prosecute any alcohol or drug abuse patient.[facility] HospitalIn the event this information is protected by the Federal Confidentiality of Alcohol and Drug Abuse Patient Records regulations: The Federal rules restrict any use of the information to criminally investigate or prosecute any alcohol or drug abuse patient.[facility] HospitalIn the event this information is protected by the Federal Confidentiality of Alcohol and Drug Abuse Patient Records regulations: The Federal rules restrict any use of the information to criminally investigate or prosecute any alcohol or drug abuse patient.[facility] HospitalIn the event this information is protected by the Federal Confidentiality of Alcohol and Drug Abuse Patient Records regulations: The Federal rules restrict any use of the information to criminally investigate or prosecute any alcohol or drug abuse patient.[facility] HospitalIn the event this information is protected by the Federal Confidentiality of Alcohol and Drug Abuse Patient Records regulations: The Federal rules restrict any use of the information to criminally investigate or prosecute any alcohol or drug abuse patient.[facility] HospitalIn the event this information is protected by the Federal Confidentiality of Alcohol and Drug Abuse Patient Records regulations: The Federal rules restrict any use of the information to criminally investigate or prosecute any alcohol or drug abuse patient.[facility] HospitalIn the event this information is protected by the Federal Confidentiality of Alcohol and Drug Abuse Patient Records regulations: The Federal rules restrict any use of the information to criminally investigate or prosecute any alcohol or drug abuse patient.[facility] HospitalIn the event this information is protected by the Federal Confidentiality of Alcohol and Drug Abuse Patient Records regulations: The Federal rules restrict any use of the information to criminally investigate or prosecute any alcohol or drug abuse patient.[facility] HospitalIn the event this information is protected by the Federal Confidentiality of Alcohol and Drug Abuse Patient Records regulations: The Federal rules restrict any use of the information to criminally investigate or prosecute any alcohol or drug abuse patient.[facility] HospitalIn the event this information is protected by the Federal Confidentiality of Alcohol and Drug Abuse Patient Records regulations: The Federal rules restrict any use of the information to criminally investigate or prosecute any alcohol or drug abuse patient.[facility] HospitalIn the event this information is protected by the Federal Confidentiality of Alcohol and Drug Abuse Patient Records regulations: The Federal rules restrict any use of the information to criminally investigate or prosecute any alcohol or drug abuse patient.[facility] HospitalIn the event this information is protected by the Federal Confidentiality of Alcohol and Drug Abuse Patient Records regulations: The Federal rules restrict any use of the information to criminally investigate or prosecute any alcohol or drug abuse patient.[facility] HospitalIn the event this information is protected by the Federal Confidentiality of Alcohol and Drug Abuse Patient Records regulations: The Federal rules restrict any use of the information to criminally investigate or prosecute any alcohol or drug abuse patient.[facility] HospitalIn the event this information is protected by the Federal Confidentiality of Alcohol and Drug Abuse Patient Records regulations: The Federal rules restrict any use of the information to criminally investigate or prosecute any alcohol or drug abuse patient.[facility] HospitalIn the event this information is protected by the Federal Confidentiality of Alcohol and Drug Abuse Patient Records regulations: The Federal rules restrict any use of the information to criminally investigate or prosecute any alcohol or drug abuse patient.[facility] HospitalIn the event this information is protected by the Federal Confidentiality of Alcohol and Drug Abuse Patient Records regulations: The Federal rules restrict any use of the information to criminally investigate or prosecute any alcohol or drug abuse patient.[facility] HospitalIn the event this information is protected by the Federal Confidentiality of Alcohol and Drug Abuse Patient Records regulations: The Federal rules restrict any use of the information to criminally investigate or prosecute any alcohol or drug abuse patient.[facility] HospitalIn the event this information is protected by the Federal Confidentiality of Alcohol and Drug Abuse Patient Records regulations: The Federal rules restrict any use of the information to criminally investigate or prosecute any alcohol or drug abuse patient.[facility] HospitalIn the event this information is protected by the Federal Confidentiality of Alcohol and Drug Abuse Patient Records regulations: The Federal rules restrict any use of the information to criminally investigate or prosecute any alcohol or drug abuse patient.[facility] HospitalIn the event this information is protected by the Federal Confidentiality of Alcohol and Drug Abuse Patient Records regulations: The Federal rules restrict any use of the information to criminally investigate or prosecute any alcohol or drug abuse patient.[facility] HospitalIn the event this information is protected by the Federal Confidentiality of Alcohol and Drug Abuse Patient Records regulations: The Federal rules restrict any use of the information to criminally investigate or prosecute any alcohol or drug abuse patient.[facility] HospitalIn the event this information is protected by the Federal Confidentiality of Alcohol and Drug Abuse Patient Records regulations: The Federal rules restrict any use of the information to criminally investigate or prosecute any alcohol or drug abuse patient.[facility] HospitalIn the event this information is protected by the Federal Confidentiality of Alcohol and Drug Abuse Patient Records regulations: The Federal rules restrict any use of the information to criminally investigate or prosecute any alcohol or drug abuse patient.[facility] HospitalIn the event this information is protected by the Federal Confidentiality of Alcohol and Drug Abuse Patient Records regulations: The Federal rules restrict any use of the information to criminally investigate or prosecute any alcohol or drug abuse patient.[facility] HospitalIn the event this information is protected by the Federal Confidentiality of Alcohol and Drug Abuse Patient Records regulations: The Federal rules restrict any use of the information to criminally investigate or prosecute any alcohol or drug abuse patient.[facility] HospitalIn the event this information is protected by the Federal Confidentiality of Alcohol and Drug Abuse Patient Records regulations: The Federal rules restrict any use of the information to criminally investigate or prosecute any alcohol or drug abuse patient.[facility] HospitalIn the event this information is protected by the Federal Confidentiality of Alcohol and Drug Abuse Patient Records regulations: The Federal rules restrict any use of the information to criminally investigate or prosecute any alcohol or drug abuse patient.[facility] Reason for Visit (unrecogniz ed section and content) Reason Comments Back Pain Reason Comments Sacroiliac pain Leg length discrepancy Reason Comments Back Pain Reason Comments Pain Reason Comments Neck SI Pain Reason Comments Neck Pain Knee Pain Back Pain Joint Pain Reason Comments Neck Pain SI JOINT Reason Comments SI pain Reason Comments si joint pain right Reason Comments si pain Reason Comments Trauma [facility]-was at a pts serafin e when lawn chair collapsed and a screw went through her R palm x 1 hr ago Specialty Diagnoses / Procedures Referred By Contac t Referred To Contact [facility] / [facility] Diagnoses Right hand injury Procedures REFERRAL TO [facility] FINANCIAL COUNSEL[facility] EST SAME DAY Self [facility] [address] [place] [address] Referral ID Status Reason Start Date Expiration Date V isits Requested Visits Authorized [id number] Outside PCP 10/25/2023 12/24/2023 1 1 Reason Comments ER F/U [facility] 10/24 W/C Reason Comments New Pain Specialty Diagnoses / Procedures Referred By Contac t Referred To Contact Orthopedics / ORTHOPAEDIC SURGERY Diagnoses Rt hand/foreign body, [facility] 10/24 Procedures NEW PATIENT Self Easton Parker MD [address] [place] [id number] Referral ID Status Reason Start Date Expiration Date Visits Re quested Visits Authorized [id number] Closed 10/26/2023 10/26/2023 1 1 Reason Comments Established Patient Specialty Diagnoses / Procedures Referred By Contac t Referred To Contact ORTHOPAEDIC SURGERY Diagnoses RIGHT HAND Procedures REFERRAL TO [facility] FINANCIAL COUNSELOR Easton Parker MD [address] [facility] [address] [place] [address] Easton Parker MD [address] [place] [address] Referral ID Status Reason Start Date Expiration Date Visits Re quested Visits Authorized [id number] Closed 11/02/2023 11/02/2023 1 1 Reason Comments SI Joint Pain Right side. Specialty Diagnoses / Procedures Referred By Contac t Referred To Contact XR IMAGING Diagnoses Injury of right hand, initial encounter Procedures XR HAND GENERAL 3V PA/LAT/OBL RIGHT RADEX HAND MINIMUM 3 VIEWS Antonio Vivar APRN.GARMENT MANUFACTURER [address] [place] [address] [place] [id number] Referral ID Status Reason Start Date Expiration Date V isits Requested Visits Authorized [id number] Closed Auto-Generate d Referral 10/25/2023 10/25/2023 1 1 Reason Comments si joint pain Reason Comments Established Patient 1 month follow up Specialty Diagnoses / Procedures Referred By Contac t Referred To Contact Orthopedics / ORTHOPAEDIC SURGERY Diagnoses 1 mo f/u Rt hand Procedures EST PATIENT Self Easton Parker MD [address] [address] Referral ID Status Reason Start Date Expiration Date Visits Requested Visits Authorized [id number] Outside PCP Patient Cleared - Admin/Chair man/Directo r advise to proceed or did not respond 12/07/2023 02/05/2024 1 1 Reason Onset Date Comments Finger Pain si joint pain Immunizations 01/03/2024 Flu vaccination Reason Comments Buttock Pain Right side Reason Comments lschial bursitis of right side Reason Comments Pain Reason Comments Appointment Reason Comments Flu Like Symptoms Pain in the L axilla - x 1 week and flu like symptoms x 1 day Reason Comments Follow Up Reason Comments Ischial bursitis of right side Reason Comments Follow Up Reason Comments Rib pain on left side Reason Comments MRI Report US F/U AND MRI Care Teams (unrecognized sec tion and content) Edger Runner Relationship Specialty Start Date End Date Ama Hamilton MD PCP - General Internal Medicine 01/24/17 Estefany Prado MD [address] [place] [address] Endocrinology 05/10/17 Tacho Del Castillo DO [address] [place] [address] Neurology 05/10/17 Edger Runner Relationship Specialty Start Date End Date Ama Hamilton MD PCP - General Internal Medicine 01/24/17 Estefany Prado MD [address] [place] [address] Endocrinology 05/10/17 Tacho Del Castillo, [address] [place], [place] [id number] Neurology 05/10/17 Edger Runner Relationship Specialty Start Date End Date Ama Hamilton MD PCP - General Internal Medicine 01/24/17 Estefany Prado MD [address] [place] [address] Endocrinology 05/10/17 Tacho Del Castillo, DO [address] [place], [place] [id number] Neurology 05/10/17 Team Status: Active Member Role Status Dates Dr. Ama Hamilton MD Primary Care Provider Active Team Status: Inactive Member Role Status Dates Dr. Ama Hamilton MD Primary Care Provider, Refer ring Provider Active Nico GAXIOLA PA Attending Provider Active Team Status: Inactive Member Role Status Dates Dr. Ama Hamilton MD Primary Care Provider, Refer ring Provider Active KHALIDA Jovel Attending Provider Active Team Status: Active Member Role Status Dates Dr. Ama Hamilton MD Primary Care Provider Active MADDIE PAN Attending Provider, Referring Provider Ac LES Patrick Active Team Status: Inactive Member Role Status Dates Dr. Ama Hamilton MD Primary Care Provider Active KHALIDA Garcia Attending Provider, Referring Prov ider Active Team Status: Inactive Member Role Status Dates Dr. Ama Hamilton MD Primary Care Provider Active Dr. Raymond Funes MD Attending Provider, Emergency Provi grace Active Team Status: Inactive Member Role Status Dates Dr. Ama Hamilton MD Primary Care Provider Active KHALIDA Jovel Attending Provider, Referring Pro vider Active Team Status: Inactive Member Role Status Dates Dr. Ama Hamilton MD Primary Care Provider Active Nico GAXIOLA, PA Attending Provider Active Edger Runner Relationship Specialty Start Date End Date Ama Hamilton MD PCP - General Internal Medicine 01/24/17 Estefany Prado MD [address] [place] [address] Endocrinology 05/10/17 Tacho Del Castillo DO [address] [place], [place] [id number] Neurology 05/10/17 Team Status: Inactive Member Role Status Dates Dr. Ama Hamilton MD Primary Care P kathy, Attending Provider, Referring Provider Active Team Status: Inactive Member Role Status Dates Dr. Ama Hamilton MD Primary Care Provider Active MADDIE PAN Attending Provider, Referring Provider Ac LES Patrick Active Team Status: Inactive Member Role Status Dates Dr. Ama Hamilton MD Primary Care Provider, Refer ring Provider Active Dr. Natalya Schaffer DO Attending Provider Activ e Team Status: Inactive Member Role Status Dates Dr. Ama Hamilton MD Primary Care Provider Active Dr. Natalya Schaffer DO Attending Provider, Refe rring Provider Active Edger Runner Relationship Specialty Start Date End Date Ama Hamilton MD PCP - General Internal Medicine 01/24/17 Estefany Prado MD [address] [place] [address] Endocrinology 05/10/17 Tacho Del Castillo DO [address] [place], [place] [id number] Neurology 05/10/17 Edger Runner Relationship Specialty Start Date End Date Ama Hamilton MD PCP - General Internal Medicine 01/24/17 Estefany Prado MD [address] [place] [address] Endocrinology 05/10/17 Tacho Del Castillo DO [address] [place] [address] Neurology 05/10/17 Edger Runner Relationship Specialty Start Date End Date Ama Hamilton MD PCP - General Internal Medicine 01/24/17 Estefany Prado MD [address] [place] [address] Endocrinology 05/10/17 Tacho Del Castillo DO [address] [place] [address] Neurology 05/10/17 Edger Runner Relationship Specialty Start Date End Date Ama Hamilton MD PCP - General Internal Medicine 01/24/17 Estefany Prado MD [address] [place] [address] Endocrinology 05/10/17 Tacho Del Castillo DO [address] [place] [address] Neurology 05/10/17 Team Status: Inactive Member Role Status Dates Dr. Ama Hamilton MD Primary Care Provider Active WARNER MARADIAGA Attending Provider Active Edger Runner Relationship Specialty Start Date End Date Ama Hamilton MD PCP - General Internal Medicine 01/24/17 Estefany Prado MD [address] [place] [address] Endocrinology 05/10/17 Tacho Del Castillo DO [address] [place] [address] Neurology 05/10/17 Edger Runner Relationship Specialty Start Date End Date Ama Hamilton MD PCP - General Internal Medicine 01/24/17 Estefany Prado MD [address] [place] [address] Endocrinology 05/10/17 Tacho Del Castillo DO [address] [place] [address] Neurology 05/10/17 Edger Runner Relationship Specialty Start Date End Date Ama Hamilton MD PCP - General Internal Medicine 01/24/17 Estefany Prado MD [address] [place] [address] Endocrinology 05/10/17 Tacho Del Castillo DO [address] [place] [address] Neurology 05/10/17 Edger Runner Relationship Specialty Start Date End Date Ama Hamilton MD PCP - General Internal Medicine 01/24/17 Estefany Prado MD [address] [place] [address] Endocrinology 05/10/17 Tacho Del Castillo DO [address] [place] [address] Neurology 05/10/17 Edger Runner Relationship Specialty Start Date End Date Ama Hamilton MD PCP - General Internal Medicine 01/24/17 Estefany Prado MD [address] [place] [address] Endocrinology 05/10/17 Tacho Del Castillo DO [address] [place] [address] Neurology 05/10/17 Edger Runner Relationship Specialty Start Date End Date Ama Hamilton MD PCP - General Internal Medicine 01/24/17 Estefany Prado MD [address] [place] [address] Endocrinology 05/10/17 Tacho Del Castillo DO [address] [place] [address] Neurology 05/10/17 Edger Runner Relationship Specialty Start Date End Date Ama Hamilton MD PCP - General Internal Medicine 01/24/17 Estefany Prado MD [address] [place] [address] Endocrinology 05/10/17 Tacho Del Castillo DO [address] [place], [place] [id number] Neurology 05/10/17 Edger Runner Relationship Specialty Start Date End Date Ama Hamilton MD PCP - General Internal Medicine 01/24/17 Estefany Prado MD [address] [place] [address] Endocrinology 05/10/17 Tacho Del Castillo DO [address] [place] [address] Neurology 05/10/17 Edger Runner Relationship Specialty Start Date End Date Ama Hamilton MD PCP - General Internal Medicine 01/24/17 Estefany Prado MD [address] [place] [address] Endocrinology 05/10/17 Tacho Del Castillo DO [address] [place] [address] Neurology 05/10/17 Edger Runner Relationship Specialty Start Date End Date Ama Hamilton MD PCP - General Internal Medicine 01/24/17 Estefany Prado MD [address] [place] [address] Endocrinology 05/10/17 Tacho Del Castillo DO [address] [place] [address] Neurology 05/10/17 Edger Runner Relationship Specialty Start Date End Date Ama Hamilton MD PCP - General Internal Medicine 01/24/17 Estefany Prado MD [address] [place] [address] Endocrinology 05/10/17 Tacho Del Castillo DO [address] [place] [address] Neurology 05/10/17 Edger Runner Relationship Specialty Start Date End Date Ama Hamilton MD PCP - General Internal Medicine 01/24/17 Estefany Prado MD [address] [place] [address] Endocrinology 05/10/17 Tacho Del Castillo DO [address] [place] [address] Neurology 05/10/17 Edger Runner Relationship Specialty Start Date End Date Ama Hamilton MD PCP - General Internal Medicine 01/24/17 Estefany Prado MD [address] [place] [address] Endocrinology 05/10/17 Tacho Del Castillo DO [address] [place] [address] Neurology 05/10/17 Edger Runner Relationship Specialty Start Date End Date Ama Hamilton MD PCP - General Internal Medicine 01/24/17 Estefany Prado MD [address] [place] [address] Endocrinology 05/10/17 Tacho Del Castillo DO [address] [place], [place] [id number] Neurology 05/10/17 Edger Runner Relationship Specialty Start Date End Date Ama Hamilton MD PCP - General Internal Medicine 01/24/17 Estefany Prado MD [address] [place] [address] Endocrinology 05/10/17 Tacho Del Castillo DO [address] [facility] [place] [address] Neurology 05/10/17 Team Status: Inactive Member Role Status Dates Dr. Ama Hamilton MD Primary Care Provider Active Start: March 05, 2024 End: March 05, 2024 Dr. Ama Hamilton MD Referring Provider Active Start: March 05, 2024 End: March 05, 2024 KHALIDA Garcia Attending Provider Active St art: March 05, 2024 End: March 05, 2024 Team Status: Inactive Member Role Status Dates Dr. Ama Hamilton MD Primary Care Provider Active Start: June 05, 2024 End: June 05, 2024 Dr. Ama Hamilton MD Attending Provider Active Start: June 05, 2024 End: June 05, 2024 Dr. Ama Hamilton MD Referring Provider Active Start: June 05, 2024 End: June 05, 2024 Team Status: Inactive Member Role Status Dates Dr. Ama Hamilton MD Primary Care Provider Active Start: June 25, 2024 End: June 25, 2024 Dr. Ama Hamilton MD Attending Provider Active Start: June 25, 2024 End: June 25, 2024 Dr. Ama Hamilton MD Referring Provider Active Start: June 25, 2024 End: June 25, 2024 Edger Runner Relationship Specialty Start Date End Date Ama Hamilton MD PCP - General Internal Medicine 01/24/17 Estefany Prado MD [address] [place] [address] Endocrinology 05/10/17 Tacho Del Castillo DO [address] [place] [address] Neurology 05/10/17 Goals (unrecognized section and content) Goals may be documented in a n alternate sectionGoals may be documented in an alternate sectionGoals may be documented in an alternate sectionGoals may be documented in an alternate sectionGoals may be documented in an alternate sectionGoals may be documented in an alternate sectionGoals may be documented in an alternate sectionGoals may be documented in an alternate sectionGoals may be documented in an alternate sectionGoals may be documented in an alternate section FOR RECORDS PERTAINING TO PATIENTS WHO ARE OR HAVE BEEN ENROLLED IN A CHEMICAL DEPENDENCY/SUBSTANCEABUSE PROGRAM, SOME INFORMATION MAY BE OMITTED. This clinical summary was aggregated from multiple sources. Caution should be exercised in using it in the provision of clinical care. This summary normalizes information from multiple sources, and as a consequence, information in this document may materially change the coding, format and clinical context of patient data. In addition, data may be omitted in some cases. CLINICAL DECISIONS SHOULD BE BASED ON THE PRIMARY CLINICAL RECORDS. [employer] [facility] provides no warranty or guarantee of the accuracy or completeness of information in this document.
[2024-09-10 07:45] LABS: Hematocrit 39.9 % (37-47); Hemoglobin 13.3 g/dL (12.0-15.0); Mean Corp Hgb Conc 33.3 g/dL (32-36); Mean Corpuscular Hgb 32.1 pg (27.0-32.0); Mean Corpuscular Volume 96.4 fL (81-99); Mean Platelet Vol. 10.2 fl (6.2-12.0); Platelet Count 315 K/mm3 (150-450); RBC Distribution Width CV 12.4 % (11.6-14.6); RBC Distribution Width SD 44.2 fl (35.1-43.9); Red Blood Count 4.14 M/mm3 (4.2-5.4); White Blood Count 5.8 K/mm3 (4.4-11.0)
[2024-09-10 08:32] LABS: Anion Gap 10 (5-15); BUN 11 mg/dL (4-19); BUN/Creat Ratio 11.2 RATIO (10-20); Calcium,Total 9.3 mg/dL (7.6-11.0); Carbon Dioxide 28.2 mmol/L (21.0-32.0); Chloride 101 mmol/L (98-108); Creatinine, Serum 0.96 mg/dL (0.70-1.20); EST Glomerular Filtration Rate 70 (>60); Glucose 86 mg/dL (70-99); Potassium 4.1 mmol/L (3.3-5.1); Sodium Level 138 mmol/L (133-145)
== END | disposition home or self-care (01) ==
LOC: PSN 06:54
PROVIDERS: PCP Internal Medicine; Referring Provider Otolaryngology; Visit Provider Otolaryngology
DX: Z01.812 Encounter for preprocedural laboratory examination (principal); Z01.810 Encounter for preprocedural cardiovascular examination
CPT/HCPCS: 36415; 80048; 85027; 93005

== ENCOUNTER 2024-11-16 13:48 | Emergency (ER) | payer OTHER, SELFPAY ==
[2024-11-16 13:50] VITALS: BP 134/82; PULSE 69; RESP 14; TEMP 36.9; O2SAT 100; BMI 21.2
--- NOTE | 2024-11-16 14:35 | CT_ITS ---
PROCEDURE: ABDOMEN/PELVIS W IV CONT ONLY 11/16/2024 REASON FOR EXAM: VOMITING, QUIET ABD TECHNIQUE: ABDOMEN/PELVIS W IV CONT ONLY Coronal and Sagittal reconstruction series were provided. CONTRAST: Isovue 370 VOLUME: 100 mL One or more dose reduction techniques were used (e.g., Automated exposure control, adjustment of the mA and/or kV according to patient size, use of iterative reconstruction technique. RADIATION DOSE SUMMARY: CTDlvol: 33.15 mGy DLP: 784.12 mGycm COMPARISON: None FINDINGS: Lung bases: Mild dependent atelectasis Liver: Scattered simple hepatic cysts are noted, largest measures 5 cm. Gallbladder: Unremarkable Spleen: Normal size. Pancreas: Normal size without evidence of mass surrounding inflammation or ductal dilation. Adrenals: Unremarkable Kidneys: No obstructive uropathy or suspicious solid renal lesion. Bladder: Unremarkable Reproductive Organs: Uterus is present, the endometrium can not be accurately evaluated with CT. No suspicious cystic mass or free fluid. Bowel: No ileus or obstruction. Retained stool noted in the colon. Appendix: Not visualized Lymph nodes: No suspicious mesenteric or retroperitoneal lymph nodes Vasculature: The abdominal aorta and IVC are normal. Peritoneum / Retroperitoneum: No free fluid or air Bones: Degenerative changes of the spine. CT/Abdomen/Pelvis W IV Cont ONLY IMPRESSION: No suspicious solid organ abnormality, simple hepatic cysts, no specific follow -up needed No free intraperitoneal fluid, air, or suspicious adenopathy. No CT evidence o f an acute inflammatory process Uterus is present, the endometrium can not be accurately evaluated with CT Retained stool Reading Location: [id number]
--- OUTSIDE RECORDS SUMMARY | 2024-11-16 14:52 | XMS RPT_ITS | CCD ---
Author Organization [facility] Care Team Providers Care Event Operations Manager Name Role Phone ROSAMARIA SU Unavailable Unavailable [...] MD Unavailable Tacho Del Castillo DO Unavailable [phone] Dr. Ama Cha Primary Care Provider [phone] Dr. Ama Hamilton Referring Provider [phone] KHALIDA Irving Attending Provider UnavailAma Gaspar MD Primary Care Provider [phone] Estefany Prado MD Unavailable Tacho Del Castillo DO Unavailable [phone] Ama Cha MD Primary Care Provider 1(3 [...] Provider [phone] Nico Francisco Attending Provider Joy MULTANI, Dr. Allen Attending Provider [phone] Joy MULTANI, Dr. Allen Primary Care Provider Joy MULTANI, Dr. Allen Referring Provider [phone] Alex MULTANI, Dr. Penn Attending Provider [phone] Alex MULTANI, Dr. Penn Referring Provider [phone] Bryan MULTANI, Dr. Rhodes Attending Provider José Miguel Aguero DO, Dr. Hoang Attending Provider Eve MULTANI, Estefany Unavailable Oleghe, Efewongbe Primary Care Unavailable VandNatalya Cordon Attending Unavailabl e Oleghe, Efewongbe Referring Unavailable Fili Johnson Referring Unavailable Carmelo Adams Attending Unavailable Oleghe, Efewongbe Primary Care Unavailable Oleghe, Efewongbe Primary Care Unavailable Vande Natalya Aguero Attending Unavailabl e Vande VeldeNatalya Referring Unavailabl e Vande VelNatalya bedoya Consulting Unavailabl e Oleghe, Efewongbe Referring Unavailable Oleghe, Efewongbe Primary Care Unavailable Vande Natalya Aguero Attending Unavailabl e Oleghe, Efewongbe Referring Unavailable Oleghe, Efewongbe Primary Care Unavailable Vande Natalya Aguero Attending Unavailabl e Oleghe, Efewongbe Referring Unavailable Nico Francisco Attending Unavailable Oleghe, Efewongbe Primary Care Unavailable Oleghe, Efewongbe Referring Unavailable Oleghe, Efewongbe Primary Care Unavailable Oleghe, Efewongbe Attending Unavailable Oleghe, Efewongbe Primary Care Unavailable Vande VelNatalya bedoya Attending Unavailabl e Vande VeldeNatalya Referring Unavailabl e Oleghe, Efewongbe Referring Unavailable Oleghe, Efewongbe Primary Care Unavailable Oleghe, Efewongbe Attending Unavailable Fili Johnson Attending Unavailable Fili Johnson Referring Unavailable Oleghe, Efewongbe Primary Care Unavailable CLUTTER, ROSAMARIA Referring Unavailable OLEGHE, EFEWONGBE B Primary Care Unavailable OLEGHE, EFEWONGBE B Primary Care Unavailable SARAH WYNN Referring Unavailable OLEGHE, EFEWONGBE B Primary Care Unavailable SELF Referring Unavailable OLEGHE, EFEWONGBE B Primary Care Unavailable SARAH WYNN Attending Unavailable SARAH WYNN Referring Unavailable OLEGHE, EFEWONGBE B Primary Care Unavailable OLEGHE, EFEWONGBE B Primary Care Unavailable SARAH WYNN Attending Unavailable OLEGHE, EFEWONGBE B Primary Care Unavailable SARAH WYNN Referring Unavailable OLEGHE, EFEWONGBE B Primary Care Unavailable SARAH WYNN Attending Unavailable SARAH WYNN Referring Unavailable OLEGHE, EFEWONGBE B Primary Care Unavailable SARAH WYNN Referring Unavailable SARAH WYNN Referring Unavailable OLEGHE, EFEWONGBE B Primary Care Unavailable SARAH WYNN Attending Unavailable OLEGHE, EFEWONGBE B Primary Care Unavailable SARAH WYNN Attending Unavailable OLEGHE, EFEWONGBE B Primary Care Unavailable OLEGHE, EFEWONGBE B Primary Care Unavailable TANIKA ALVES Attending Unavailable OLEGHE, EFEWONGBE B Primary Care Unavailable BOTANIKA MORA Attending Unavailable OLEGHE, EFEWONGBE B Primary Care Unavailable TANIKA ALVES Attending Unavailable OLEGHE, EFEWONGBE B Primary Care Unavailable TANIKA ALVES Attending Unavailable TANIKA ALVES Attending Unavailable OLEGHE, EFEWONGBE B Primary Care Unavailable TANIKA ALVES Attending Unavailable OLEGHE, EFEWONGBE B Primary Care Unavailable TANIKA ALVES Attending Unavailable OLEGHE, EFEWONGBE B Primary Care Unavailable OLEGHE, EFEWONGBE B Primary Care Unavailable TANIKA ALVES Attending Unavailable Allergies Allergy Classification Reported Allergen(s) Allergy Type Date of Onset Reaction(s) Facility (20 sources) lactase; Translations: [LACTASE] Drug Allergy 02-28-20 13 Other: See Comments [facility] (20 sources) midodrine; Translations: [MIDODRINE] Drug Allergy 06-01-19 16 Rash [facility] (20 sources) naproxen; Translations: [NAPROXEN] Drug Allergy 02-28-20 13 Hives [facility] (20 sources) Penicillins; Translations: [PENICILLINS] Propensity to adverse reactions (disorder) 02-28-20 13 Unknown [facility] (20 sources) sulfamethoxazole; Translations: [SULFAMETHOXAZOLE] Drug Allergy 02-28-20 13 Other: See Comments [facility] (20 sources) Sulfamethoxazole / Trimethoprim; Translations: [SULFAMETHOXAZOLE-T RIMETHOPRIM] Drug Allergy 04-11-19 13 Unknown [facility] (13 sources) Naproxen; Translations: [naproxen sodium] Drug Allergy 09-01-19 22 Hives [facility] (12 sources) Sulfonamides (Antibiotic) Propensity to adverse reactions 09-01-19 Other [facility] (1 source) Sulfonamides (Antibiotic) Drug allergy (disorder) 09-30-19 [facility] Medications Current Medications Medication Drug Class(es) [...] per day as tolerated. Biocidin Advanced Formula ([employer]) (20 sources) Start: 03-11-2019 take 5 drop(s) by mouth three times daily Biocidin Advanced Formula (Corrupt Lace) Take 5 Drops by mouth three times daily. 03/11/2019 Active Start: 03-11-2019 take 5 drop(s) by mo uth three times daily Biocidin Advanced Formula ([employer]) Take 5 Drops by mouth three [...] Active cholecalciferol 0.125 mg disintegrating oral tablet (12 sources) Vitamin D Start: 020 take 1 tablet by mouth once daily Cholecalciferol (Vitamin D3) 5,000 unit tablet,disintegrating Active 5000 U PO DAILY April 03, 2019 1:00am Start: 04-03-2019 Cholecalcifero l (Vitamin D3) Active UNIT PO April 03, 2019 1:00am Cortisol [employer] Coordinator 90 ct. ([employer]) Stress, blood sugar, thyroid/hormones/adrenals/sleep/energy/anxiety (20 sources) Start: 06-10-2018 Cortisol Credit Coordinator 90 ct[address] ([employer]) Stress, blood [...] metered-dose pump Discontinued 2 PUMP TOPICAL Q12H April 27, 2022 1:00am June 06, 2023 [...] Take 1,000 Units by mouth once daily. estradiol 0.5 mg oral tablet (20 sources) Estrogen Start: 09-29-2024 take 1 tablet by mouth once daily Estradiol 0.5 mg tablet Active 0.5 mg PO daily 0 September 29, 2024 12:00am October 28, 2024 12:00am Start: 03-06-2023 End: 09-02-2024 Estradiol (Vivelle-Dot) 0.05 mg/24 hr patch semiweekly Discontinued 1 NMA TD TWICE A WEEK 16 06March 12, 2023 2:37pm July 30, 2023 12:25pm apply 1 patch for 3 days alternating [...] Discontinued 1 NMA TD TWICE A WEEK 8 2 October 03, 2022 2:02pm November 01, 2022 4:40pm apply 1 patch for 3 days alternating with 1 patch for 4 days each week for 3 wks per 4-wk cycle Start: 07-27-2022 End: 03-12-2023 Estradiol (Vivelle-Dot) 0.03 75 mg/24 hr patch semiweekly Discontinued 1 PATCH TD TWICE A WEEK 8 October 03, 2022 2:02pm November 01, 2022 [...] 1 APPLIC TOPICAL TWICE A DAY 60 14 August 31, 2021 12:00am krill oil (12 sources) Start: 04-19-2017 take 1 capsule by mouth twice daily Tchxa-Ri-9-Dha-Epa- Phospho-Ast (Krill Oil) 1,700-779-75-50 mg capsule Active 1 NMA PO TWICE A DAY April 19, 2017 1:00am Start: 04-19-2017 Zpokf-Fx-5-Dha -Hte-Ejzrpdh-Sio (Krill Oil) 1,761-541-77-50 mg capsule Active 1 CAP PO TWICE A DAY April 19, 2017 12:00am Start: 04-19-2017 Oqqwr-Ny-5-Dha -Kpn-Gjhbanx-Hpp (Krill Oil) 1,535-811-62-50 mg capsule Active 1 CAP PO TWICE A DAY April 19, 2017 1:00am Magnesium (20 sources) Start: 06-10-2018 Magnesium (Cit rate) 150 mg (Pure Encapsulations) Take 4 capsules daily. 120 capsule 5 06/10/2018 Active Comment on above: Take 4 capsules jesus y. magnesium gluconate 550 mg oral tablet (12 sources) Start: 04-15-2020 take 1 tablet by mouth once daily Magnesium 30 mg tablet Active 30 mg PO DAILY April 15, 2020 1:00am melatonin 10 mg oral capsule (20 sources) [...] tablet 1 07/30/2024 Active Start: 03-05-2024 End: 09-29-2024 take 1 tablet by mouth twice daily Meloxicam 7.5 mg tablet Discontinued 7.5 mg PO TWICE A DAY 30 1 April 08, 2024 4:47pm June 05, 2024 5:00pm Start: 01-06-2022 End: 11-03-2022 take 1 tablet by mouth once daily Meloxicam 15 mg tablet Discontinued 15 mg PO DAILY 30 0 May 24, 2022 1:05pm September 13, 2022 [...] 1 tablet by florian th once daily Multivitamin,Pr-Wfmh-Vbdcyrkt Active 1 T ABLET PO DAILY January 29, 2017 1:00am Multivitamin,Mo-Kqbb-Flwlwhl s 1 TABLET tablet (3 sources) Start: 01-29-2017 take 1 tablet by mouth once daily Multivitamin,Kj-Fkaw-Ohvdnqht 1 TABLET tablet Active 1 {tbl} PO [...] Drug Class(es) Dates Sig (Normalized) Sig (Original) [place] (12 sources) Start: 04-19-2017 End: 04-18-2018 [place] 250 mg tablet Discontinued mg PO 0 April 19, 2017 1:00am April 18, 2018 6:10pm Start: 04-19-2017 End: 04-18-2018 [place] 250 mg tablet Discon tinued mg PO April 19, 2017 1:00am April 18, 2018 6:10pm Start: 04-19-2017 End: 04-18-2018 [place] Discontinued MG PO J anuary 2017 12:00am April 18, 2018 5:10pm Start: 04-19-2017 End: 04-18-2018 [place] Discontinued MG PO J anuary 2017 1:00am April 18, 2018 6:10pm ascorbic acid 100 mg chewable tablet (12 sources) Vitamin C Start: 04-19-2017 End: 04-15-2020 take 1 tablet by mouth once daily Ascorbic Acid (Vitamin C) 100 mg tablet,chewable Discontinued 100 mg PO daily April 19, 2017 1:00am April 15, 2020 6:05pm calcium carbonate 600 mg / cholecalciferol 0.01 mg oral tablet (12 sources) Vitamin D Start: 04-19-2017 End: 10-03-2018 Htp-[id number]-Usrv-Ce p-Abdifatah-Bor (Caltrate 600-D Plus Minerals) 600 mg calcium- 800 unit-50 mg tablet Discontinued 1 {tbl} PO TWICE A DAY April 19, 2017 1:00am October 03, 2018 4:54pm cetirizine hydrochloride 10 mg oral tablet (12 sources) Histamine-1 Receptor Antagonist Start: 01-10-2013 End: 10-18-2017 take 1 tablet by mouth once daily as needed for pain Cetirizine 10 MG tablet Discontinued 10 mg PO DAILY NEEDED as needed for Pain January 10, 2013 12:00am October 18, 2017 5:03pm cyclobenzaprine hydrochloride 5 mg oral tablet (12 sources) Muscle Relaxant Start: 11-02-2020 End: 05-25-2021 take 1 tablet by mouth three times daily as needed for muscle spasms Cyclobenzaprine 5 mg tablet Discontinued 5 mg PO THREE TIMES A DAY as needed for muscle spasm 30 0 November 02, 2020 12:00am May 25, 2021 6:17pm dexamethasone phosphate 4 mg/ml injectable solution (9 sources) Corticosteroid Start: 04-05-2022 End: 05-24-2022 take 1 dose by mouth once daily Dexamethasone Sodium Phosphate 4 mg/mL solution Discontinued 4 mg PO DAILY 30 April 05, 2022 1:00am May 24, 2022 5:55pm apply to Iontophoresis patch per treatment protocol Start: 04-05-2022 End: 05-24-2022 take 1 dose by mouth once daily Dexamethasone Sodium Phosphate Discontinued 4 MG PO DAILY April 05, 2022 1:00am May 24, 2022 5:55pm apply to Iontophoresis patch per treatment protocol doxycycline monohydrate 100 mg oral capsule (6 sources) Tetracycline-class Drug Start: 09-13-2022 End: 12-20-2022 take 1 capsule by mouth twice daily Doxycycline Monohydrate 100 mg capsule Discontinued 100 mg PO TWICE A DAY 14 0 September 13, 2022 12:00am December 20, 2022 5:04pm fludrocortisone acetate 0.1 mg oral tablet (20 sources) Start: 06-01-2015 End: 05-25-2021 Fludrocortisone 0.1 mg tablet Discontinued 0.1 mg PO .prn April 15, 2020 6:05pm May 25, 2021 6:16pm gabapentin 300 mg oral capsule (20 sources) Anti-epileptic Agent Start: 07-27-2022 End: 11-21-2023 take 1 capsule by mouth at bedtime Gabapentin 300 mg capsule Discontinued 300 mg PO AT BEDTIME 90 0 October 27, 2022 3:25pm November 01, 2022 4:40pm iohexol injection (OMNIPAQUE 300) (1 source) Start: 09-12-2024 End: 09-12-2024 X (OR/PROCEDURE) PRN, Starting on Sun09/12/24 at 1046, Until Sun09/12/24 at 1046, Intraprocedure Lidocaine (1 source) Antiarrhythmic, Amide Local Anesthetic Start: 09-12-2024 End: 09-12-2024 OTHER, X (OR/PROCEDURE) PRN, Starting on Sun09/12/24 at 1045, Until Sun09/12/24 at 1045, Intraprocedure medroxyPROGESTERone acetate 2.5 mg oral tablet (19 sources) Progestin Start: 07-27-2022 End: 09-29-2024 take 1 tablet by mouth once daily Medroxyprogesterone 2.5 mg tablet Discontinued 2.5 mg PO DAILY 90 4 November 12, 2023 1:18pm November 21, 2023 12:18pm methylPREDNISolone 4 mg oral tablet (12 sources) Corticosteroid Start: 03-05-2024 End: 06-05-2024 take [...] succinate 25 mg extended release oral tablet (18 sources) beta-Adrenergic Ruma Start: 10-18-2017 End: 05-19-2022 take 1 tablet by mouth once daily Metoprolol Succinate 25 mg tablet extended release 24 hr Discontinued 25 mg PO daily October 18, 2017 12:00am May 25, 2021 6:16pm Comment on above: Take 1 tablet by florian th once daily. ondansetron 4 mg disintegrating oral tablet (20 sources) Serotonin-3 Receptor Antagonist Start: 02-23-2022 End: 05-24-2022 take 1 tablet by mouth every eight hours as needed for nausea Ondansetron 4 mg tablet,disintegra ting Discontinued 4 mg PO EVERY 8 HOURS NEEDED as needed for Nausea 10 February 23, 2022 1:00am May 24, 2022 5:56pm Start: 12-21-2017 End: 12-26-2017 take 1 tablet by mouth three times daily as needed for nausea and vomiting Ondansetron (Zofran Odt) 4 mg tablet,disintegrating Discontinued 4 mg PO THREE TIMES A DAY as needed for nausea and vomiting December 21, 2017 12:00am December 25, 2017 12:00am December 26, 2017 12:07am PARoxetine hydrochloride 10 mg oral tablet (8 sources) Serotonin Reuptake Inhibitor Start: 05-24-2022 End: 09-13-2022 take 1 tablet by mouth once daily Paroxetine Hcl 10 mg tablet Discontinued 10 mg PO DAILY 30 May 24, 2022 1:00am September 13, 2022 4:56pm 20 ml ropivacaine hydrochloride 5 mg/ml injection (1 source) Amide Local Anesthetic Start: 09-12-2024 End: 09-12-2024 OTHER, X (OR/PROCEDURE) PRN, Starting on Sun09/12/24 at 1047, Until Sun09/12/24 at 1047, Intraprocedure TherBiotic Complete 120 Ct[address] ([place]laire/Prothera) (20 sources) [...] 1 capsule by mo uth once daily. 1 ml triamcinolone acetonide 40 mg/ml injection (1 source) Corticosteroid Start: End: INTRA-ARTICULAR, X (OR/PROCEDURE) PRN, Starting on Sun09/12/24 at 1047, Until Sun09/12/24 at 1047, Intraprocedure Vitamin B Complex (20 sources) Start: End: take 1 capsule by mouth once daily [...] uth once daily. Vitamin B Complex capsule (3 sources) Start: 04-15-2020 End: 06-06-2023 Vitamin B Complex capsule Discontinued 1 NMA PO DAILY April 15, 2020 1:00am June 06, 2023 5:03pm Problems Active Problems Problem Classification Problem Date Documented Da te Episodic/Chronic Anxiety disorders (17 sources) Anxiety; Translations: [Anxiety disorder, unspecified] 05-25-2021 Chronic Complications of surgical procedures or medical care (20 sources) History of subtotal thyroidectomy; Translations: [Postprocedural hypothyroidism] Onset: 09-13-2017 09-13-2017 Chronic Fluid and electrolyte disorders (11 sources) Moderate dehydration; Translations: [Dehydration] 03-03-2022 Episodic Fracture of upper limb (12 sources) Stress fracture of clavicle; Translations: [Stress fracture, right shoulder, initial encounter for fracture] 02-24-2017 Episodic Influenza (12 sources) Influenza due to Influenza A virus; Translations: [Influenza due to other identified influenza virus with other respiratory manifestations] 03-03-2022 Episodic Menopausal disorders (20 sources) Menopausal flushing; Translations: [Menopausal and female climacteric states] Onset: 10-29-2023 05-24-2022 Chronic Mycoses (1 source) Pityriasis versicolor; Translations: [Pityriasis versicolor] Episodic Nausea and vomiting (11 sources) Intractable nausea and vomiting; Translations: [Nausea with vomiting, unspecified] 03-03-2022 Episodic Noninfectious gastroenteritis (12 sources) Gastroenteritis; Translations: [Noninfective gastroenteritis and colitis, unspecified] 04-19-2017 Episodic Other bone disease and musculoskeletal deformities (17 sources) Cervical somatic dysfunction; Translations: [Segmental and somatic dysfunction of cervical region] Episodic Other bone disease and musculoskeletal deformities (18 sources) Somatic dysfunction of thoracic region; Translations: [Segmental and somatic dysfunction of thoracic region] Episodic Other bone disease and musculoskeletal deformities (20 sources) Somatic dysfunction of lumbar region; Translations: [Segmental and somatic dysfunction of lumbar region] Episodic Other bone disease and musculoskeletal deformities (20 sources) Somatic dysfunction of sacral region; Translations: [Segmental and somatic dysfunction of sacral region] Episodic Other bone disease and musculoskeletal deformities (20 sources) Somatic dysfunction of pelvic region; Translations: [...] bone disease and musculoskeletal deformities (15 sources) Somatic dysfunction of head region; Translations: [Segmental and somatic dysfunction of head region] Episodic Other bone disease and musculoskeletal deformities (12 sources) Somatic dysfunction of upper limb; Translations: [Segmental and somatic dysfunction of upper extremity] Episodic Other circulatory disease (20 sources) Raynaud's phenomenon; Translations: [Raynaud's syndrome without gangrene] 01-04-2017 Chronic Other connective tissue disease (1 source) Pain in unspecified hand; Translations: [Pain in unspecified hand] Onset: 06-24-2018 Episodic Other connective tissue disease (2 sources) Bursitis of knee; Translations: [Other bursitis of knee, unspecified knee] Episodic Other connective tissue disease (11 sources) Pes anserinus bursitis of right knee; [...] hand] 11-15-2023 Episodic Other connective tissue disease (16 sources) Ischial bursitis ; Translations: [Other bursitis of hip, right hip] 02-15-2024 Episodic Other connective tissue disease (6 sources) Pain in axilla; Translations: [Pain in left upper arm] 06-05-2024 Episodic Other connective tissue disease (5 sources) Hamstring injury; Translations: [Other specified enthesopathies of right lower limb, excluding foot] 07-30-2024 Episodic Other connective tissue disease (1 source) Other specified enthesopathies of right lower limb, excluding foot; Translations: [Hamstring tendinitis of right thigh] Onset: 09-03-2024 Episodic Other ear and sense organ disorders (4 sources) Tinnitus; Translations: [Tinnitus, unspecified ear] 06-06-2023 Episodic Other ear and sense organ disorders (2 sources) Tinnitus, unspecified ear; Translations: [Tinnitus, unspecified] 06-06-2023 Episodic Other ear and sense organ disorders (6 sources) Bilateral tinnitus; Translations: [Tinnitus, bilateral] 06-05-2024 Episodic Other female genital disorders (4 sources) Polyp of cervix; Translations: [Polyp of [...] Rib pain; Translations: [Pleurodynia] 07-01-2024 Episodic Other nervous system disorders (2 sources) Other chronic pain; Translations: [Chronic right shoulder pain] Onset: 02-15-2024 Chronic Other non-traumatic joint disorders (20 sources) Pain in right knee; Translations: [Pain in joint, lower leg] Episodic Other non-traumatic joint disorders (3 sources) Chronic pain of right upper limb; Translations: [Pain in right shoulder] 01-01-2023 Episodic Other non-traumatic joint disorders (4 sources) Hip pain; Translations: [Pain in right hip] 07-30-2024 Episodic Other non-traumatic joint disorders (2 sources) Pain in right hip; Translations: [Pain of right hip] Onset: 08-13-2024 Episodic Other nutritional; endocrine; and metabolic disorders (11 sources) Ketosis; Translations: [Other specified metabolic disorders] 03-03-2022 Chronic Other skin disorders (1 source) Rash and other nonspecific skin eruption; Translations: [Rash and other nonspecific skin eruption] Episodic Residual codes; unclassified (1 source) Insomnia, unspecified; Translations: [Insomnia, unspecified] Onset: 06-24-2018 Episodic Residual codes; unclassified (2 sources) Pain; Translations: [Pain, unspecified] 04-01-2024 Episodic Skin and subcutaneous tissue infections (6 sources) Cellulitis; Translations: [Cellulitis, unspecified] 09-13-2022 Episodic Spondylosis; intervertebral disc disorders; other back problems (20 sources) Sacroiliac disorder; Translations: [Sacrococcygeal disorders, not elsewhere classified] Onset: 02-15-2024 Episodic Sprains and strains (3 sources) Acetabular labrum tear; Translations: [Other sprain of right hip, subsequent encounter] Onset: 2024 09-09-2024 Episodic Superficial injury; contusion (1 source) Foreign body in hand; Translations: [Superficial foreign body of right hand, initial encounter] 10-25-2023 Episodic Thyroid disorders (20 sources) Nontoxic single thyroid nodule; Translations: [Autoimmune thyroiditis] Onset: 01-24-2017 01-24-2017 Chronic Unclassified (1 source) Unknown / UNK(Unknown) Onset: 06-07-2017 Unclassified (1 source) Established Patient Onset: 12-07-2023 Unclassified (7 sources) Tinnitus of both ears; Translations: [H93.13 - Tinnitus, bilateral,T78.40XA - Allergy, unspecified, initial encounter] Unclassified (1 source) POTS (postural orthostatic tachycardia syndrome); Translations: [POTS (postural orthostatic tachycardia syndrome)] Onset: 05-27-2024 Unclassified (1 source) Flu Like Symptoms Onset: 05-27-2024 Unclassified (1 source) Autogenerated Problem Onset: 11-03-2024 11-03-2024 Past or Other Problems Problem Classification Problem Date Documented Da te Episodic/Chronic Abdominal pain (20 sources) Abdominal pain; Translations: [Unspecified abdominal pain] Onset: 02-27-2013 Resolved: 06-07-2017 06-07-2017 Episodic Allergic reactions (15 sources) Inflammatory dermatosis; Translations: [Dermatitis, unspecified] Onset: 06-05-2024 12-20-2022 Episodic Cardiac dysrhythmias (20 sources) Postural orthostatic [...] Translations: [Somatic dysfunction of lower extremity] Onset: 08-12-2024 Episodic Other bone disease and musculoskeletal deformities (1 source) Segmental and somatic dysfunction of cervical region; Translations: [Somatic dysfunction of cervical region] Onset: 02-15-2024 Episodic Other bone disease and musculoskeletal deformities (1 source) Segmental and somatic dysfunction of thoracic region; Translations: [Somatic dysfunction of thoracic region] Onset: 02-15-2024 Episodic Other bone disease and musculoskeletal deformities (1 source) Segmental and somatic dysfunction of lumbar region; Translations: [Somatic dysfunction of lumbar region] Onset: 02-15-2024 Episodic Other bone disease and musculoskeletal deformities (1 source) Segmental and somatic dysfunction of sacral region; Translations: [Somatic dysfunction of sacral region] Onset: 02-15-2024 Episodic Other bone disease and musculoskeletal deformities (1 source) Segmental and somatic dysfunction of pelvic region; Translations: [Somatic dysfunction of pelvis region] Onset: 02-15-2024 Episodic Other bone disease and musculoskeletal deformities (1 source) Segmental and somatic dysfunction of head region; Translations: [Somatic dysfunction of head region] Onset: 01-03-2024 Episodic Other bone disease and musculoskeletal deformities (1 source) Segmental and somatic dysfunction of upper extremity; Translations: [Somatic dysfunction of upper extremity] Onset: 01-03-2024 Episodic Other bone disease and musculoskeletal deformities (1 source) Segmental and somatic dysfunction of rib cage; Translations: [Somatic dysfunction of rib] Onset: 01-03-2024 Episodic Other circulatory disease (20 sources) Orthostatic hypotension; Translations: [Orthostatic hypotension] Onset: 04-23-2013 Resolved: 06-07-2017 06-07-2017 Episodic Other connective tissue disease (20 sources) Hand pain; Translations: [Pain in unspecified hand] Onset: 06-10-2018 06-10-2018 Episodic Other connective tissue disease (1 source) Pain in left upper arm; Translations: [Pain in left upper arm] Onset: 06-28-2024 Episodic Other connective tissue disease (2 sources) Other bursitis of hip, right hip; Translations: [Ischial bursitis of right side] Onset: 02-15-2024 Episodic Other connective tissue disease (1 source) Pain in right finger(s); Translations: [Finger pain, right] Onset: 02-15-2024 Episodic Other ear and sense organ disorders [...] initial encounter] Onset: 10-26-2023 10-25-2023 Episodic Other lower respiratory disease (1 source) Pleurodynia; Translations: [Rib pain on left side] Onset: 08-12-2024 Episodic Other non-traumatic joint disorders (1 source) Pain in right shoulder; Translations: [Chronic right shoulder pain] Onset: 07-01-2024 Episodic Other skin disorders (20 sources) Localized swelling, mass and lump, unspecified upper limb; Translations: [Other symptoms referable to joint, upper arm] Onset: 11-03-2015 11-03-2015 Episodic Residual codes; unclassified (20 sources) Insomnia; Translations: [Insomnia, unspecified] Onset: 06-10-2018 06-10-2018 Episodic Residual codes; unclassified (1 source) Pain, unspecified; Translations: [Pain] Onset: 04-16-2024 Episodic Thyroid disorders (20 sources) Disorder of thyroid, unspecified; Translations: [Mass of thyroid gland] Onset: 01-24-2017 Resolved: 06-07-2017 06-07-2017 Episodic Unclassified (12 sources) 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-2021 Comment on above: 2012 Unclassified (12 sources) SIBO 10-12-2021 Unclassified (20 sources) hemangeoma left elbow 10-12-2021 Comment on above: 2015 Unclassified (12 sources) left glute medius tenson repair 10-12-2021 Comment on above: 2009 Unclassified (20 sources) left knee scope 10-12-2021 Comment on above: 12/2016 Unclassified (12 sources) right glute medius tendon repair 10-12-2021 Comment on above: 2008 Results Test Name Value Interpretation Reference Range Facility [facility] 11-14-2024 CNOV Office Visit ([facility]) -------- MARGOT HU ([id number]) 1970 F [facility] Date Time Provider Department 11/14/24 8:00 AM TANIKA ALVES RADHA During your visit today, we recorded the following information about you: Temperature Pulse Blood pressure Weight 97.3 degrees 69/minute 115/65 72.1 kg Tanika Alves DO 11/14/2024 8:39 AM Signed Osteopathic Neuromusculoskeletal Medicine Progress Note Name: Margot Hu Date of : 1970 PCP: Ama Hamilton MD Date of Exam: November 14, 2024 This note was completed using [employer] AI Scribe; use of the scribe was explained to the patient who gave verbal consent to use of an AI scribe. Chief Complaint: This is Margot Hu, a 54 year old female who presents with Patient presents with: SI joint pain: Right side AMB ROOMING INTAKE FLOWSHEET DATA Pain Pain Level: 2 Pain Location: (Joint) Description: Aching Duration Units: Years Frequency: Intermittent Intervention/Comfort measure: Reposition, Relaxation, Exercise, Medication SUBJECTIVE History of Present Illness: Margot Hu is a 54-year-old female presenting with right-sided neck pain and stiffness. Margot reports right-sided neck pain and stiffness, extending into the suboccipital region, which she describes as crabby. She identifies a trigger point in the area, noting that the pain is exacerbated when she breathes to the right while swimming. The pain is severe enough that she sometimes has to manually lift her chin to turn her head. She denies any specific trauma or injury to the neck. 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 She attributes the neck pain to her swimming activities, particularly when breathing to the right side. She also mentions having a neck and notes that her neck was over pliable during her competitive swimming days. In addition to neck pain, Margot reports issues with her right sacroiliac (SI) joint, describing it as spooky. She has a history of bilateral gluteus medius repairs and a current right labral tear, which she plans to have repaired. She describes her pelvis as stubborn and notes that her L5 vertebra tends to get stuck. She denies any specific trauma or injury to the gluteal muscles. Medical, surgical, and family histories reviewed. Allergies and social history reviewed. Review of Systems: Musculoskeletal: (+) right neck pain, (+) neck stiffness, (+) right sacroiliac pain, (+) low back stiffness OBJECTIVE BP 115/65 Pulse 69 Temp (Src) 97.3 (Temporal) Wt 158 lb 15.2 oz (72.1kg) LMP 10/25/2023 Physical Exam Vitals and nursing [...] by Body Region: Head: Suboccipital hypertonicity; OA flexed sidebent right, rotated left Cervical: Bilateral paraspinal hypertonicity, C4-C6 flexed, rotated and side bent left Thoracic: Bilateral paraspinal hypertonicity; T3-T5 neutral, sidebent left and rotated right Lumbar: L2-L5 neutral, side bent right and rotated left Sacral: Bilateral SI joints tight; sacrum flexed, side bent right and rotated left Pelvis: Bilateral innominate's restricted; right innominate anteriorly rotated and out flared ASSESSMENT AND PLAN Neck pain (primary encounter diagnosis) Chronic right si joint pain Right hip pain Somatic dysfunction of head region Somatic dysfunction of cervical region Somatic dysfunction of thoracic region Somatic dysfunction of lumbar region Somatic dysfunction of sacral region Somatic dysfunction of pelvis region Orders Placed This Encounter Osteopathic manipulative treatment (OMT) Order Comments: This order was created via procedure documentation Presenting structural biopsychotype: Not assessed Patient presents for follow-up, reporting acute on chronic neck pain exacerbated by swimming. Also still having pain in the right hip and right SI joint, which are chronic. Gets good relief with OMT. She does have a known right hip labral tear, scheduled for surgery in October. No recent trauma o (more content not included)... Normal [facility] Osteopathic manipulative dominic atment (OMT)on 11-14-2024 Tanika Alves DO 11/14/2024 8:39 AM Osteopathic manipulative treatment (OMT) Time/Date:11/14/2024 8:36 AM Informed Consent Consent Obtained: Verbal [place] Protocol A moment to CARE was completed. SIGN IN Special Equipment: N/A Patient/Surrogate Stated/Verified: Patient name, Date of and Intended procedure TIME OUT Consent documented and matches the intended procedure. Consent Obtained:Verbal Body Regions: Head, Cervical, Thoracic, Lumbar, Sacrum and Pelvis Head Technique: balanced ligamentous tension, suboccipital release Cervical Technique: facilitated positional release, myofascial release Thoracic Technique: facilitated positional release Lumbar Technique: myofascial release Sacrum Technique: myofascial release Pelvis Technique: myofascial release Number of Body Regions: 5- 6 Disposition: Osteopathic manipulation tolerated well, reports subjective and objective improvement, improvement in range of motion and mechanics, instructed to increase hydration for the next 24 hours and instructed to follow up if symptoms worsen or fail to improve [facility] -------- MARGOT HU ([id number]) 1970 F [facility] Date Time Provider Department 10/10/24 [facility] WHEAT[facility] During your visit today, we recorded the following information about you: Easton Wheatley, AT 10/10/2024 3:26 PM Signed Spoke with patient on the phone. Patient had a right hip joint injection on 09-12-24. Patient reports 100% relief of her symptoms for about 4 days. She said she felt amazing and it was an eye opening event. Pain returned about 10 days later. Given the significant relief from the injection (albeit short lived), advised patient she would be a candidate for a hip arthroscopy to treat her labral tear. Other options would be to give this more time, continued activity modification, PT. Patient has been dealing with this for some time now so she would like to discuss surgical options. Will get her set up for a follow up with Dr. Wynn to discuss further. Will tentatively get her set for an December surgery date, pending her follow up with Dr. Wynn in the next few weeks. All questions were addressed. Easton Wheatley, MEd, AT, ATC Allergies As of Date: 10/10/2024 Noted Allergy Reaction SULFAMETHOXAZOLE-TRIMETH OPRIM 04/11/2012 16 - Unknown ALEVE (NAPROXEN) 02/27/2013 4 - Hives BACTRIM (SULFAMETHOXAZOLE) 02/27/2013 14 - Other: See Comments Comments: Swollen joints LACTOSE INTOLERANCE (LACTASE) 02/27/2013 14 - Other: See Comments Comments: Gastric problems, swelling of lymph nodes MIDODRINE 06/01/2015 2 - Rash PENICILLINS 02/27/2013 16 - Unknown Comments: Childhood reaction. Date Reviewed: 10/02/2024 Reviewed by: Josephine Peña MA - Fully Assessed Prescriptions as of 10/10/2024 - meloxicam (MOBIC) 15 mg tablet Take 1 tablet by mouth once daily. - meloxicam (MOBIC) 15 mg tablet Take 1 tablet by mouth once daily. - Estradiol (ZANDER) 0.0375 mg/24 hr Apply 1 Patch as directed two times a week. - Biocidin Advanced Formula ([employer]) Take 5 Drops by mouth three times daily. - A-EB/H6 ([employer]) Take 1-2 drops daily, increase to 10 drops per day as tolerated. - Cortisol Credit Coordinator [address] ct[address] ([employer]) Stress, blood sugar, [...] once daily. Problem List As Of Date 10/10/2024 Noted Resolved Weakness [R53.1] 02/27/2013 Tachycardia [R00.0] [...] foreign body *10/26/2023 Encounter Status:Closed by EASTON WHEATLEY on 10/10/24 Normal [facility] 10-02-2024 CNOV Office Visit ([facility]) -------- MARGOT HU ([id number]) 1970 F [facility] Date Time Provider Department 10/02/24 8:45 AM BRUNOTANIKA MORA RADHA During your visit today, we recorded the following information about you: Temperature Pulse Blood pressure Weight 98.2 degrees 78/minute 121/65 71.3 kg Tanika Alves DO 10/02/2024 9:25 AM Signed Osteopathic Neuromusculoskeletal Medicine Progress Note Name: Margot Hu Date of : 1970 PCP: Ama Hamilton MD Date of Exam: October 02, 2024 This note was completed using [employer] AI Scribe; use of the scribe was explained to the patient who gave verbal consent to use of an AI scribe. Chief Complaint: This is Margot Hu, a 53 year old female who presents with Patient presents with: Hip Pain Low Back Pain: SI joint AMB ROOMING INTAKE FLOWSHEET DATA Pain Pain Level: 3 Pain Location: Hip-Right Description: Aching Duration Units: Months Frequency: Continuous Intervention/Comfort measure: Reposition, Relaxation, Pillow support, Positioning SUBJECTIVE History of Present Illness: Margot Hu is a 53-year-old female presenting for follow-up on chronic bilateral hip pain. Margot was last seen in July and has since undergone an MRI, which revealed a torn labrum. She received an injection nearly 3 weeks ago, which provided relief for approximately 4 days. However, the pain has since returned and is described as constant and severe, feeling like someone shot me in the butt. She also experiences stabbing pain in the IT band when the groin pain intensifies. Margot was previously taking meloxicam, which was discontinued prior to the injection. She reports that the pain limits her activities, including hiking and yoga, and she has resorted to swimming for exercise. Since doing so she has developed some neck pain and tightness as well. 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 This has led to tendinopathy and recurrent flares. 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 Medical, surgical, and family histories reviewed. Allergies and social history reviewed. Review of Systems: Constitutional: (-) chills Musculoskeletal: (+) buttock pain, (+) bilateral groin pain, (+) iliotibial band pain, (+) neck pain, (+) hip pain, (-) knee pain, (-) knee stiffness OBJECTIVE BP 121/65 Pulse 78 Temp (Src) 98.2 (Temporal) Wt 157 lb 3 oz (71.3kg) LMP 10/25/2023 Physical Exam Vitals and nursing [...] Somatic Dysfunction by Body Region: Head: OA sidebent right, rotated left; suboccipital hypertonicity Cervical: Bilateral paraspinal and scalene hypertonicity; AA rotated left; C3 and C4 flexed rotated and sidebent left; C6 flexed rotated and sidebent right Thoracic: Bilateral paraspinal hypertonicity; T2 flexed rotated and sidebent right Sacral: Bilateral SI restrictions Pelvis: Bilateral hip capsule restrictions ASSESSMENT AND PLAN Chronic right si joint pain (primary encounter diagnosis) Right hip pain Neck pain Somatic dysfunction of head region Somatic dysfunction of cervical region Somatic dysfunction of thoracic region Somatic dysfunction of sacral region Somatic dysfunction of pelvis region Orders Placed This Encounter Osteopathic manipulative treatment (OMT) Order Comments: This order was created via procedure documentation Patient presents for follow-up of chronic SI pain, also reporting intermittent right hip pain. Recently diagnosed with a torn labrum. Due to functional loss from these issues she has switched to swimming as her primary exercise, which she (and her neck) are unaccustomed to, leading to some neck pain and tightness as well. Somatic dysfunction was identified on exam. OMT was performed today to improve function and reduce symptoms with good effect. See procedure note below. Return in about 6 weeks (around 11/13/2024). 30 minutes were spent on the d (more content not included)... Normal [facility] Osteopathic manipulative dominic atment (OMT)on 10-02-2024 Tanika Alves DO 10/02/2024 9:25 AM Osteopathic manipulative treatment (OMT) Time/Date:10/02/2024 9:22 AM Informed Consent Consent Obtained: Verbal [place] Protocol A moment to CARE was completed. SIGN IN Special Equipment: N/A Patient/Surrogate Stated/Verified: Patient name, Date of and Intended procedure TIME OUT Consent documented and matches the intended procedure. Consent Obtained:Verbal Body Regions: Head, Cervical, Thoracic, Sacrum and Pelvis Head Technique: balanced ligamentous tension, suboccipital release Cervical Technique: balanced ligamentous tension, progressive inhibition of neuromusculoskeletal structures Thoracic Technique: facilitated positional release, myofascial release Sacrum Technique: Augmentation of CRI Pelvis Technique: Augmentation of CRI Number of Body Regions: 5- 6 Disposition: Osteopathic manipulation tolerated well, reports subjective and objective improvement, improvement in range of motion and mechanics, instructed to increase hydration for the next 24 hours and instructed to follow up if symptoms worsen or fail to improve [facility] [employer] Analyst Office Visit Reporton 09-29-2024 [employer] Analyst Office Visit Report [facility] [address], [address] [place] [address] OFFICE VISIT Date of Service: 09/29/24 MR#: [id number] Acct: [id number] Name: JACQUES HUMARGOTNETTA WATSON Rep #: [id number] : 1970 Provider: Dr. Natalya Choudhary DO Age/Sex: 53/F Location: 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 Is patient in pain?: No Allergies naproxen sodium (From Aleve) Allergy (Severe, Verified 09/29/24 14:52) Hives Penicillins (PCN) Allergy (Unknown, Verified 09/29/24 14:52) Unknown midodrine Allergy (Verified 09/29/24 14:52) Rash Sulfa (Sulfonamide Antibiotics) Adverse Reaction (Severe, Verified 09/29/24 14:52) Other Medications ???Medication ???Instructions ???Recorded ???Confirmed ???Type multivitamin,tx-iron-min erals 27 1 tab PO DAILY 01/29/17 09/29/24 H istory mg-0.4 mg tablet krill 1,000 mg-omega-3 170 mg-dha 1 cap PO BID 04/19/17 09/29/24 Hi story 50 mg-epa 80 ga-[id number]-cohqe capsule (krill oil) cholecalciferol (vitamin D3) 125 5,000 unit PO DAILY 04/03/1909/29 History mcg (5,000 unit) disintegrating tablet magnesium 30 mg tablet 30 mg PO DAILY 04/15/20 09/29/24 H istory melatonin 10 mg capsule 5 mg PO HS 04/15/20 09/29/24 Histo ry gabapentin 300 mg capsule 300 mg PO QHS #90 caps 11/21/23 Rx estradiol 0.05 mg/24 hr semiweekly 1 patch transdermal 2XW #24 ea 0 09/02/24 09/29/24 Rx transdermal patch (Vivelle-Dot) estradiol 0.5 mg tablet 0.5 mg PO QDAY 30 days #30 tabs 09/29/24 Rx medroxyprogesterone 2.5 mg tablet 2.5 mg PO DAILY #90 tabs 09/29/24 09/29/24 Rx Post menopausal: No Patient : No : No PFSH Medical History Polyp of cervix uteri Stress fracture of right clavicle Cellulitis Pain in left axilla Allergies Tinnitus of both ears Wears contact lenses Post-menopausal Open wound Non-smoker History of stress test History of echocardiogram Cardiology follow-up encounter PONV (postoperative nausea and vomiting) Dermatitis Menopausal hot flushes Anxiety SIBO Gastroenteritis IBS [...] 73 CLL (chronic lymphocytic leukemia) Social History adopted: No household members: spouse number of children: 2 current occupational status: employed current occupation: [employer] pets and animals: Yes (1) pets and [...] you feel safe at home: Yes HPI Encounter for routine gynecological examination Details: MARGOT HU is a 53 year old who presents for annual exam. Last PAP:07/30/23 History of abnormal PAP: no Last mammogram: 07/18 History of abnormal mammogram: lymph node on 06/2024 Colon cancer screening: up to date Other preventative health care screenings: due for lipid panel. no breakthrough bleeding but has been having hotflashes again. just filled the 0.5mg vivelle dot. already taking gabapentin. Female Reproductive History Questions: metorrhagia: No, sexually active: Yes, dyspareunia: No and PCB: No Menopausal Symptoms: Yes hot flashes, Yes night sweats, No weight change, No mood changes, No difficulty concentrating, No sleep problems and No change in libido Menopausal Treatment: Yes HRT ROS Const Constitu (more content not included)... Normal [facility] Guidance for injection of Hi glenna 09-12-2024 IMPRESSION: SUCCESSF UL FLUOROSCOPICALLY GUIDED THERAPEUTIC INJECTION OF THE RIGHT HIP DESCRIBED ABOVE. Attending Radiologist: Dr. Hector Segura MD Com Writer: John José MD The procedure was performed by the health care legal assistant, and the attending radiologist was not present but immediately available to furnish services during the entire procedure. Saw Superintendent: PSCB Transcribe Date/Time: Sep 12 2024 1:12P Dictated by : JOHN JOSÉ MD This examination was interpreted and the report reviewed and electronically signed by: HECTOR SEGURA MD on Sep 12 2024 4:08PM [facility] [[email or web address]] DIVISION OF RADIOLOGY * * *Final Report* * * DATE OF EXAM: Sep 12 2024 12:41PM AOX [id number] - XR HIP INJECTION RT / PROCEDURE REASON: Acetabular labrum tear, right, subsequent encounter * * * * Physician Interpretation * * * * FLUOROSCOPICALLY GUIDED RIGHT HIP THERAPEUTIC INJECTION INDICATION: The patient is a 53 years year old Female who presented with Acetabular labrum tear, right, subsequent encounter . CONSENT: The risks, benefits, treatment options, potential [...] procedure/treatment. Pre-procedure Sign-in: Safety Checklist Performed Yes b) Positioning: The patient was placed Supine on the fluoroscopy table. c) The area was then sterilely prepped and draped. d) Time Out: A time out was performed immediately prior to procedure start with the nursing, anesthesia and interventional team, correctly identifying the patient name, date of , procedure, anatomy (including marking of site and side), patient position, procedure consent form, relevant diagnostic and radiology test results, antibiotic administration, safety precautions, and procedure-specific equipment needs. Procedure Start Time / Timeout Time: 1044 e) Anesthesia Type: Local anesthesia: 4mL 1% Lidocaine PROCEDURE: a) Procedure Details:A 20g spinal needle was inserted into the hip joint. 1 ml Omnipaque 300 was injected to confirm intra-articular placement of needle. Contrast was observed to flow into the joint without significant resistance. 7 mL of injectate was administered into the joint . The needle was removed. Images were stored to the permanent digital archive documenting needle position. b) Injectate Contents: 1 mL Triamcinolone Acetonide (Kenalog) 40mg/ml 6 mL 0.5% Ropivacaine (Naropin) c) Estimated Blood Loss: 0 mls d) Number and Type of Removed Specimens: N/A RADIATION DOSE Fluoroscopic Radiation Summary: Air Kerma: 2.0 mGy Fluoro time: 0:05 min:sec POST PROCEDURE: a) Hemostasis: Hemostasis was achieved using light manual compression. b) Sign-out: Communication Performed N/A c) Procedure End Time: 1048 d) Conclusion: The patient was discharged from the radiology department in stable condition. COMPLICATIONS: a) Significant Patient Complication: None b) Complications during the procedure: None RESULTS:Medication was injected into the joint. DIVISION OF RADIOLOGY Provider, [facility] - 09/12/2024 * * *Final Report* * * DATE OF EXAM: Sep 12 2024 12:41PM AOX [id number] - XR HIP INJECTION RT / PROCEDURE REASON: Acetabular labrum tear, right, subsequent encounter * * * * Physician Interpretation * * * * FLUOROSCOPICALLY GUIDED RIGHT HIP THERAPEUTIC INJECTION INDICATION: The patient is a 53 years year old Female who presented with Acetabular labrum tear, right, subsequent encounter . CONSENT: The risks, benefits, treatment options, potential [...] procedure/treatment. Pre-procedure Sign-in: Safety Checklist Performed Yes b) Positioning: The patient was placed Supine on the fluoroscopy table. c) The area was then sterilely prepped and draped. d) Time Out: A time out was performed immediately prior to procedure start with the nursing, anesthesia and interventional team, correctly identifying the patient name, date of , procedure, anatomy (including marking of site and side), patient position, procedure consent form, relevant diagnostic and radiology test results, antibiotic administration, safety precautions, and procedure-specific equipment needs. Procedure Start Time / Timeout Time: 1044 e) Anesthesia Type: Local anesthesia: 4mL 1% Lidocaine PROCEDURE: a) Procedure Details:A 20g spinal needle was inserted into the hip joint. 1 ml Omnipaque 300 was injected to confirm intra-articular placement of needle. Contrast was observed to flow into the joint without significant resistance. 7 mL of injectate was administered into the joint . The needle was removed. Images were stored to the permanent digital archive documenting needle position. b) Injectate Contents: 1 mL Triamcinolone Acetonide (Kenalog) 40mg/ml 6 mL 0.5% Ropivacaine (Naropin) c) Estimated Blood Loss: 0 mls d) Number and Type of Removed Specimens: N/A RADIATION DOSE Fluoroscopic Radiation Summary: Air Kerma: 2.0 mGy Fluoro time: 0:05 min:sec POST PROCEDURE: a) Hemostasis: Hemostasis was achieved using light manual compression. b) Sign-out: Communication Performed N/A c) Procedure End Time: 1047 d) Conclusion: The patient was discharged from the radiology department in stable condition. COMPLICATIONS: a) Significant Patient Complication: None b) Complications during the procedure: None RESULTS:Medication was injected into the joint. IMPRESSION IMPRESSION: SUCCESSFUL FLUOROSCOPICALLY GUIDED THERAPEUTIC INJECTION OF THE RIGHT HIP DESCRIBED ABOVE. Attending Radiologist: Dr. Hector Segura MD Com Writer: John José MD The procedure was performed by the health care legal assistant, and the attending radiologist was not present but immediately available to furnish services during the entire procedure. Saw Superintendent: PSCB Transcribe Date/Time: Sep 12 2024 1:12P Dictated by : JOHN JOSÉ MD This examination was interpreted and the report reviewed and electronically signed by: HECTOR SEGURA MD on Sep 12 2024 4:08PM EST [facility] Radiology Study observation (narrative) [facility] Guidance for injection of Hi pOrdered By: [facility] Provider on 09-12-2024 [facility] XR HIP INJECTION RTon 2024 XR HIP INJECTION RT * * *Final Report* * * DATE OF EXAM: Sep 12 2024 12:41PM AOX [id number] - XR HIP INJECTION RT / PROCEDURE REASON: Acetabular labrum tear, right, subsequent encounter * * * * Physician Interpretation * * * * FLUOROSCOPICALLY GUIDED RIGHT HIP THERAPEUTIC INJECTION INDICATION: The patient is a 53 years year old Female who presented with Acetabular labrum tear, right, subsequent encounter . CONSENT: The risks, benefits, treatment options, potential [...] procedure/treatment. Pre-procedure Sign-in: Safety Checklist Performed Yes b) Positioning: The patient was placed Supine on the fluoroscopy table. c) The area was then sterilely prepped and draped. d) Time Out: A time out was performed immediately prior to procedure start with the nursing, anesthesia and interventional team, correctly identifying the patient name, date of , procedure, anatomy (including marking of site and side), patient position, procedure consent form, relevant diagnostic and radiology test results, antibiotic administration, safety precautions, and procedure-specific equipment needs. Procedure Start Time / Timeout Time: 1044 e) Anesthesia Type: Local anesthesia: 4mL 1% Lidocaine PROCEDURE: a) Procedure Details:A 20g spinal needle was inserted into the hip joint. 1 ml Omnipaque 300 was injected to confirm intra-articular placement of needle. Contrast was observed to flow into the joint without significant resistance. 7 mL of injectate was administered into the joint . The needle was removed. Images were stored to the permanent digital archive documenting needle position. b) Injectate Contents: 1 mL Triamcinolone Acetonide (Kenalog) 40mg/ml 6 mL 0.5% Ropivacaine (Naropin) c) Estimated Blood Loss: 0 mls d) Number and Type of Removed Specimens: N/A RADIATION DOSE Fluoroscopic Radiation Summary: Air Kerma: 2.0 mGy Fluoro time: 0:05 min:sec POST PROCEDURE: a) Hemostasis: Hemostasis was achieved using light manual compression. b) Sign-out: Communication Performed N/A c) Procedure End Time: 1048 d) Conclusion: The patient was discharged from the radiology department in stable condition. COMPLICATIONS: a) Significant Patient Complication: None b) Complications during the procedure: None RESULTS:Medication was injected into the joint. IMPRESSION: SUCCESSFUL FLUOROSCOPICALLY GUIDED THERAPEUTIC INJECTION OF THE RIGHT HIP DESCRIBED ABOVE. Attending Radiologist: Dr. Hector Segura MD Com Writer: John José MD The procedure was performed by the health care legal assistant, and the attending radiologist was not present but immediately available to furnish services during the entire procedure. Saw Superintendent: JESUS Transcribe Date/Time: Sep 12 2024 1:12P Dictated by : JOHN JOSÉ MD This examination was interpreted and the report reviewed and electronically signed by: HECTOR SEGURA MD on Sep 12 2024 4:08PM EST [id number] Normal [facility] 12 Lead EKGon 09-10-2024 12 Lead EKG [facility] Cardiovascular Services [address] [place] [address] 12 Lead EKG 09/10/24 0701 MR#: [id number] Acct: [id number] Name: MARGOT RITTER Rep #: [id number] : 1970 53 From: Carmelo Adams MD Attending Dr: Dr. Fili Johnson MD Status: REG CLI Ordering Dr: Fili Johnson MD Date: 09/10/24 [facility] Sex: F C Admitted: Test Reason : PREOP Blood Pressure : */* mmHG Vent. Rate : 67 BPM Atrial Rate : 67 BPM P-R Int : 126 ms QRS Dur : 84 ms QT Int : 398 ms P-R-T Axes : 74 87 65 degrees QTcB Int : 420 ms Normal sinus rhythm Normal ECG Confirmed by CARMELO ADAMS MD ([id number]), editorial manager BRYAN MORENO ([id number]) on 09/10/2024 12:45:22 PM Referred By: Fili Johnson Confirmed By: CARMELO ADAMS MD 09/10/24 1245 Date Carmelo Adams MD CC: Dr. Ama Hamilton MD; Dr. Fili Johnson MD Signed Normal [facility] Anion gap in Serum or Plasma Ordered By: Fili Johnson on 09-10-2024 Anion gap [Moles/Vol] 10 mmol/L - [facility] BUN/creatinine ratioOrdered By: Fili Johnson on 09-10-2024 Urea nitrogen/Creatinine [Mass ratio] 11.2 mg/mg - [facility] Basic Metabolic Profile (BMP )on 09-10-2024 BUN/CRE 11.2 RATIO Normal - [facility] Comment on above: Performed By: #### L 100.0500, L500.2500 #### [facility] [address] [place], [address] Calcium [Mass/Vol] 9.3 mg/dL Normal 7.6-11.0 [facility] Comment on above: Performed By: #### L 100.0500, L500.2500 #### [facility] [address] [place], [address] Chloride [Moles/Vol] 101 mmol/L Normal 98-108 [facility] Comment on above: Performed By: #### L 100.0500, L500.2500 #### [facility] [address] [place], [address] CO2 [Moles/Vol] 28.2 mmol/L Normal 21.0-32.0 [facility] Comment on above: Performed By: #### L 100.0500, L500.2500 #### [facility] [address] [place], [address] Creatinine [Mass/Vol] 0.96 mg/dL Normal 0.70-1.20 [facility] Comment on above: Performed By: #### L 100.0500, L500.2500 #### [facility] [address] [place], [address] GAP 10 Normal 08-07 [facility] Comment on above: Performed By: #### L 100.0500, L500.2500 #### [facility] [address] [place], [address] GFR/1.73 sq M.predicted among non-blacks MDRD (S/P/Bld) [Vol rate/Area] 70 mL/min/{1.73_m2} Normal >60 [facility] Comment on above: Result Comment: mL/m in/1.73m2 CKD-EPI Creatinine Equation (2020) Performed By: #### L 100.0500, L500.2500 #### [facility] [address] [place], [address] Glucose [Mass/Vol] 86 mg/dL Normal 70-99 [facility] Comment on above: Performed By: #### L 100.0500, L500.2500 #### [facility] [address] [place], [address] Potassium [Moles/Vol] 4.1 mmol/L Normal 3.3-5.1 [facility] Comment on above: Result Comment: Hemo lysis present, Results??could be affected. ?? Performed By: #### L 100.0500, L500.2500 #### [facility] [address] [place], [address] Sodium [Moles/Vol] 138 mmol/L Normal 133-145 [facility] Comment on above: Performed By: #### L 100.0500, L500.2500 #### [facility] [address] [place], [address] Urea nitrogen [Mass/Vol] 11 mg/dL Normal 4-19 [facility] Comment on above: Performed By: #### L 100.0500, L500.2500 #### [facility] [address] [place], [address] CBC-Complete Blood Cnt No Di ffon 09-10-2024 Erythrocyte distribution width (RBC) [Ratio] 12.4 % Normal 11.6-14.6 [facility] Comment on above: Performed By: #### L 100.0500, L500.2500 #### [facility] [address] [place], [address] Hematocrit (Bld) [Volume fraction] 39.9 % Normal 37-47 [facility] Comment on above: Performed By: #### L 100.0500, L500.2500 #### [facility] [address] [place], [address] Hemoglobin (Bld) [Mass/Vol] 13.3 g/dL Normal 12.0-15.0 [facility] Comment on above: Performed By: #### L 100.0500, L500.2500 #### [facility] [address] [place], [address] MCH (RBC) [Entitic mass] 32.1 pg High 27.0-32.0 [facility] Comment on above: Performed By: #### L 100.0500, L500.2500 #### [facility] [address] [place], [address] MCHC (RBC) [Mass/Vol] 33.3 g/dL Normal 32-36 [facility] Comment on above: Performed By: #### L 100.0500, L500.2500 #### [facility] [address] [place], [address] MCV (RBC) [Entitic vol] 96.4 fL Normal 81-[address] [facility] Comment on above: Performed By: #### L 100.0500, L500.2500 #### [facility] [address] [place], [address] Platelet mean volume (Bld) [Entitic vol] 10.2 fL Normal 6.2-12.0 [facility] Comment on above: Performed By: #### L 100.0500, L500.2500 #### [facility] [address] [place], [address] Platelets (Bld) [#/Vol] 315 10*3/uL Normal 150-450 [facility] Comment on above: Performed By: #### L 100.0500, L500.2500 #### [facility] [address] [place], [address] RBC (Bld) [#/Vol] 4.14 10*6/uL Low 4.2-5.4 [facility] Comment on above: Performed By: #### L 100.0500, L500.2500 #### [facility] [address] [place], [address] RDW SD 44.2 fl High 35.1-43.9 [facility] Comment on above: Performed By: #### L 100.0500, L500.2500 #### [facility] [address] [place], [address] WBC (Bld) [#/Vol] 5.8 10*3/uL Normal 4.4-11.0 [facility] Comment on above: Performed By: #### L 100.0500, L500.2500 #### [facility] [address] [place], [address] Carbon dioxide, total [Moles /volume] in Central venous bloodOrdered By: Fili Johnson on 09-10-2024 CO2 [Moles/Vol] 28.2 mmol/L 21.0-32.0 [facility] Chloride assayOrdered By: Jerman Johnson on 09-10-2024 Chloride [Moles/Vol] 101 mmol/L 98-108 [facility] Electrocardiogram reportOrde red By: Carmelo Adams on 09-10-2024 EKG study [facility] Cardiovascular Services [address] [place] [address] 12 Lead EKG 09/10/24 0701 MR#: [id number] Acct: [id number] Name: MARGOT RITTER Shannan p #:[id number] : 1970 53 From: Carmelo Adams MD Attending Dr: Dr. Fili Johnson MD Status: REG CLI Ordering Dr: Fili Johnson MD Date: Location: [facility] Sex: F C Admitted: Test Reason : PREOP Blood Pressure : */* mmHG Vent. Rate : 67 BPM Atrial Rate : 67 BPM P-R Int : 126 ms QRS Dur : 84 ms QT Int : 398 ms P-R-T Axes : 74 87 65 degrees QTcB Int : 420 ms Normal sinus rhythm Normal ECG Confirmed by BRYAN MULTANI, CARMELO ([id number]), editorial manager BRYAN MORENO ([id number]) on 2:45:22 PM Referred By: Fili Johnson Confirmed By: CARMELO ADAMS MD 09/10/24 1245 Date _ Carmelo Adams MD CC: Dr. Ama Hamilton MD; Dr. Fili Johnson MD ~ Signed [facility] Other Phone: Erythrocyte distribution wid th ratioOrdered By: Fili Johnson on 09-10-2024 Erythrocyte distribution width (RBC) [Ratio] 12.4 % 11.6-14.6 [facility] Erythrocyte distribution wid th standard deviationOrdered By: Fili Johnson on 09-10-2024 Erythrocyte distribution width (RBC) [Ratio] 44.2 fl High 35.1-43.9 [facility] Glomerular filtration rate ( GFR) estimation/1.73 sq m using serum, plasma, or whole bOrdered By: Fili Johnson on 09-10-2024 GFR/1.73 sq M.predicted among non-blacks MDRD (S/P/Bld) [Vol rate/Area] 70 mL/min/{1.73_m2} >60 [facility] Comment on above: mL/min/1.73m2 CKD-EP I Creatinine Equation (2020) Hematocrit Auto (Bld) [Volum e fraction]Ordered By: Fili Johnson on 09-10-2024 Hematocrit (Bld) [Volume fraction] 39.9 % 37-47 [facility] Hemoglobin measurementOrdere d By: Fili Johnson on 09-10-2024 Hemoglobin (Bld) [Mass/Vol] 13.3 g/dL 12.0-15.0 [facility] MCV (mean corpuscular volume ) determinationOrdered By: Fili Johnson on 09-10-2024 MCV (RBC) [Entitic vol] 96.4 fL 81-[address] [facility] Mean corpuscular hemoglobin (MCH) determinationOrdered By: Fili Johnson on 09-10-2024 MCH (RBC) [Entitic mass] 32.1 pg High 27.0-32.0 [facility] Mean corpuscular hemoglobin concentration (MCHC) determinationOrdered By: Fili Johnson on 09-10-2024 MCHC (RBC) [Mass/Vol] 33.3 g/dL 32-36 [facility] Mean platelet volume determi nationOrdered By: Fili Johnson on 09-10-2024 Platelet mean volume (Bld) [Entitic vol] 10.2 fL 6.2-12.0 [facility] Platelet countOrdered By: Jerman Johnson on 09-10-2024 Platelets (Bld) [#/Vol] 315 10*3/uL 150-450 [facility] Potassium measurement (mass/ volume)Ordered By: Fili Johnson on 09-10-2024 Potassium (Unsp spec) [Mass/Vol] 4.1 mmol/L 3.3-5.1 [facility] Comment on above: Hemolysis present, R esults could be affected. RBC Auto (Bld) [#/Vol]Ordere d By: Fili Johnson on 09-10-2024 RBC (Bld) [#/Vol] 4.14 10*6/uL Low 4.2-5.4 [facility] Serum creatinine measurement (mass/volume)Ordered By: Fili Johnson on 09-10-2024 Creatinine [Mass/Vol] 0.96 mg/dL 0.70-1.20 [facility] Serum glucose measurement (m ass/volume)Ordered By: Fili Johnson on 09-10-2024 Glucose [Mass/Vol] 86 mg/dL 70-99 [facility] Serum or plasma calcium renee urement (mass/volume)Ordered By: Fili Johnson on 09-10-2024 Calcium [Mass/Vol] 9.3 mg/dL 7.6-11.0 [facility] Serum or plasma urea nitroge n measurement (mass/volume)Ordered By: Fili Johnson on 09-10-2024 Urea nitrogen [Mass/Vol] 11 mg/dL 4-19 [facility] Sodium levelOrdered By: Tika Johnson on 09-10-2024 Sodium [Moles/Vol] 138 mmol/L 133-145 [facility] White blood cell (WBC) count Ordered By: Fili Johnson on 09-10-2024 WBC (Bld) [#/Vol] 5.8 10*3/uL 4.4-11.0 [facility] CNOVon 09-09-2024 CNOV Office Visit (SPHTB) -------- MARGOT HU ([id number]) 1970 F [facility] Date Time Provider Department 09/09/24 2:15 PM SARAH WYNN [facility] During your visit today, we recorded the following information about you: Sarah Wynn MD 09/09/2024 2:36 PM Signed DEPARTMENT OF ORTHOPAEDICS Chief Complaint: [...] hamstring origin tendinosis without tear. PHYSICAL EXAM: [facility] 10/25/2023 General: Appears stated age, well [...] Medius Positive Negative Piriformis Negative Negative IMPRESSION: (N32.572G) Acetabular labrum tear, right, subsequent encounter (primary encounter diagnosis) PLAN: 1. Medication: None. 2. Test(s)/Imaging/Referral (s): Right hip joint injection. 3. Intervention: Continue [...] Past Histories independently gathered by the clinical information support project manager and the remaining scribed note accurately describes my personal service to the patient. Sarah Wynn MD Referring Provider: SARAH WYNN [[id number]] Allergies As of Date: 09/09/2024 Noted Allergy Reaction SULFAMETHOXAZOLE-TRIMETH OPRIM 04/11/2012 16 - Unknown ALEVE (NAPROXEN) 02/27/2013 4 - Hives BACTRIM (SULFAMETHOXAZOLE) 02/27/2013 14 - Other: See Comments Comments: Swollen joints LACTOSE INTOLERANCE (LACTASE) 02/27/2013 14 - Other: See Comments Comments: Gastric problems, swelling of lymph nodes MIDODRINE 06/01/2015 2 - Rash PENICILLINS 02/27/2013 16 - Unknown Comments: Childhood reaction. Date Reviewed: 09/09/2024 Reviewed by: Dejuan Garcia MA - Fully Assessed Reason for Visit: MRI Report [1240] Cmt: US F/U AND MRI Primary Visit Diagnosis:Acetabular labrum tear, right, subsequent encounter [S73.191D] Order(s):IMAGING GUIDED HIP INJECTION RIGHT [[id number]] Order #: [id number] FUTURE Prescriptions as of 09/09/2024 - meloxicam (MOBIC) 15 mg tablet Take 1 tablet by mouth once daily. - meloxicam (MOBIC) 15 mg tablet Take 1 tablet by mouth once daily. - Estradiol (ZANDER) 0.0375 mg/24 hr Apply 1 Patch as directed two times a week. - Biocidin Advanced Formula ([employer]) Take 5 Drops by mouth three times daily. - A-EB/H6 (Bright White Formulas) Take 1-2 drops daily, increase to 10 drops per day as tolerated. - Cortisol Credit Coordinator 90 ct. ([employer]) Stress, blood sugar, thyroid/hormones/adrenal s/sleep/energy/anxiety Take 1 in AM and 1 be (more content not included)... Normal [facility] US HIP RTon 09-03-2024 US HIP RT * * *Final Report* * * DATE OF EXAM: Sep 03 2024 8:24AM KADY 1148 - US HIP RT / PROCEDURE [...] The sciatic nerve is within normal limits. Saw Superintendent[facility] Transcribe Date/Time: Sep 03 2024 8:26A Dictated by : ANTONIO SALAS MD This examination was interpreted and the report reviewed and electronically signed by: ANTONIO SALAS MD on Sep 03 2024 8:27AM EST [id number] Normal [facility] Hip - righton 09-03-2024 IMPRESSION: Mild hamstring origin tendinosis. No other significant abnormality is identified. The sciatic nerve is within normal limits. Saw Superintendent: [facility] Transcribe Date/Time: Sep 03 2024 8:26A Dictated by : ANTONIO SALAS MD This examination was interpreted and the report reviewed and electronically signed by: ANTONIO SALAS MD on Sep 03 2024 8:27AM EST DIVISION OF RADIOLOGY * * *Final Report* * * DATE OF EXAM: Sep 03 2024 8:24AM [facility] 1148 - HIP RT / [...] HIP: Normal appearance. DIVISION OF RADIOLOGY Provider, [facility] José [facility] - 09/03/2024 * * *Final Report* * * DATE OF EXAM: Sep 03 2024 8:24AM KADY 1148 - US HIP RT / PROCEDURE [...] The sciatic nerve is within normal limits. Saw Superintendent: JESUS Transcribe Date/Time: Sep 03 2024 8:26A Dictated by : ANTONIO SALAS MD This examination was interpreted and the report reviewed and electronically signed by: ANTONIO SALAS MD on Sep 03 2024 8:27AM EST [facility] Radiology Study observation (narrative) Pablo smith [facility] US Hip - rightOrdered By: Jeanne da silva Provider on 09-03-2024 [facility] MRI HIP WO IVCON RTon 2024 MRI HIP WO IVCON RT * * *Final Report* * * DATE OF EXAM: Aug 13 2024 9:11AM [facility] 0207 - MRI HIP WO IVCON RT [...] sizable joint effusion. No subchondral fracture. Large pnqcm-lo-zdyv images of the left hip are unremarkable. [...] Mild right hamstring origin tendinosis without tear. Saw Superintendent: JESUS Transcribe Date/Time: Aug 13 2024 1:59P Dictated by : SVEN RIOS MD This examination was interpreted and the report reviewed and electronically signed by: SVEN RIOS MD on Aug 13 2024 5:04PM EST [id number] Normal [facility] CNOVon 08-12-2024 CNOV Office Visit (OMMS) -------- HUMARGOT ([id number]) 1970 [facility] Date Time Provider Department 08/12/24 8:15 AM TANIKA ALVES [facility] During your visit today, we recorded the following information about you: Temperature Pulse Blood pressure Weight 97.9 degrees 71/minute 126/70 74.8 kg Tanika Alves DO 08/12/2024 9:15 AM Signed Osteopathic Neuromusculoskeletal Medicine Progress Note Name: Margot Hu Date of : 1970 PCP: Ama Hamilton MD Date of Exam: August 12, 2024 This note was completed using [employer] AI Scribe; use of the scribe was [...] dedicated to preparing to see the patient, [id number] patient care, completing clinical documentation, obtaining and/or reviewing separately obtained history, performing a medically appropriate examination, couns (more content not included)... Normal [facility] Osteopathic manipulative dominic atment (OMT)on 08-12-2024 Tanika Alves DO 08/12/2024 9:15 AM Osteopathic manipulative treatment (OMT) Time/Date:08/12/2024 9:13 AM Informed Consent Consent Obtained: Verbal [place] Protocol A moment to CARE was completed. [...] if symptoms worsen or fail to improve [facility] Joaquín 07-31-2024 CNPN Telephone (RULTTB) -------- MARGOT HU ([id number]) 1970 F [facility] Date Time Provider Department 07/31/24 EASTON WULTTB During your visit today, we recorded the following information about you: Easton Wu 07/31/2024 8:14 AM Addendum Visit Type: US MSK1 Visit Length: 45 OR 60 MINUTES Order Name/Protocol: US HIP RT; POSTERIOR-EVAL HAMSTRING INSERTION+SCIATIC NERVE. HX OF GLUTE MED TENDON REPAIR Preferred Provider: N/A Comment: N/A [facility] Slot held: N/A [...] times a week. - Biocidin Advanced Formula ([employer]) Take 5 Drops by mouth three times daily. - A-EB/H6 (B[employer]) Take 1-2 drops daily, increase to 10 drops per day as tolerated. - Cortisol Credit Coordinator 90 ct[address] ([employer]) Stress, blood sugar, [...] with foreign body *10/26/2023 Encounter Status:Closed by GUILLORYFABBY on 07/31/24 Normal [facility] CNOVon 07-30-2024 CNOV Office Visit (SPRTSO ) -------- MARGOT HU ([id number]) 1970 F [facility] Date Time Provider Department 07/30/24 3:30 PM [...] Past Histories independently gathered by the clinical information support project manager and the remaining scribed note accurately describes [...] side [M70.71] Order(s):MRI HIP WO IVCON RIGHT [[id number]] Order #: [id number] FUTURE US HIP RIGHT [[id number]] Order #: [id number] FUTURE meloxicam (MOBIC) 15 mg tabletTake 1 [...] times a week. - Biocidin Advanced Formula ([employer]) Take 5 Drops by mouth three times daily. - A-EB/H6 ([employer]) Take 1-2 drops daily, increase to 10 drops per day as tolerated. - Cortisol Credit Coordinator 90 ct[address] ([employer]) Stress, blood sugar, thyroid/hormones/adrenal s/sleep/energy/anxiety Take 1 in AM and 1 before bed - Magnesium (Citrate) 150 mg (Pure Encapsulations) Take 4 capsules daily. - TherBiotic Complete 120 Ct. (more content not included)... Normal [facility] CNOVon 07-01-2024 CNOV Office Visit (OMMS) -------- MARGOT HU ([id number]) 1970 F [facility] Date Time Provider Department 07/01/24 9:15 AM TANIKA ALVES [facility] During your visit today, we recorded the [...] above instructions, please call our office at [phone]. A message will be left with our [...] You can call our appointment line at [phone] and press option number 1 to leave a message. Please leave a current phone number to reach you back. Tanika Alves DO 07/01/2024 9:49 AM Signed Osteopathic Neuromusculoskeletal Medicine Progress Note Name: Margot Hu Date of : 1970 PCP: Ama Hamilton MD Date of Exam: July 01, 2024 This note was completed using [employer] AI Scribe; use of the scribe was [...] LMP 10/25/19 (more content not included)... Normal [facility] Osteopathic manipulative dominic atment (OMT)on 07-01-2024 Tanika Alves DO 07/01/2024 9:49 AM Osteopathic manipulative treatment (OMT) Time/Date:07/01/2024 9:47 AM Informed Consent Consent Obtained: Verbal [place] Protocol A moment to CARE was completed. [...] if symptoms worsen or fail to improve [facility] Bilat Brst Alphonse Stand Aloneo n 06-25-2024 Bilat Brst Alphonse Stand Alone [facility] Imaging Services [address] [place] [id number] Bilat Brst Alphonse Stand Alone MR#: [id number] Acct: [id number] Name: MARGOT RITTER Rep #: [id number] : 1970 F 53 From: Lyssa Quiros MD PCP: Dr. Ama Hamilton MD Status: REG CLI Study: Bilat Brst Alphonse Stand Alone Date of Exam: 05/20 Exam# [id number] Ordering Dr: Ama Hamilton MD EXAM: DIAG [...] be mailed to the patient. Reading Location: [facility] CC: Dr. Ama Hamilton MD Saw Superintendent: Signed Normal [facility] Breast Limited Unilateralon 06-25-2024 Breast Limited Unilateral [facility] Imaging Services [address] [place] [id number] Breast Limited Unilateral MR#: [id number] Acct: [id number] Name: MARGOT RITTER Rep #: [id number] : 1970 F 53 From: Lyssa Quiros MD PCP: Dr. Ama Hamilton MD Status: REG CLI Study: Breast Limited Unilateral Date of Exam: Exam# [id number] Ordering Dr: Ama Hamilton MD EXAM: DIAG [...] be mailed to the patient. Reading Location: [facility] CC: Dr. Ama Hamilton MD Saw Superintendent: Signed Normal [facility] Breast imaging reportOrdered By: Lyssa Quiros on 06-25-2024 Study report [facility] Imaging Services [address] [place] [address] DIAG MAMM W/CAD, BILAT MR#: [id number] Acct: [id number] Name: MARGOT RITTER Rep #: [id number] : 1970 F 53 From: Malaika Quiros MD PCP: Dr. Ama Hamilton MD Status: R EG CLI Study:DIAG MAMM W/CAD, BILAT Date of Exam: 06/25/24 Exam# [id number] Ordering Dr: Daysi Hamilton MD EXAM: DIAG [...] be mailed to the patient. Reading Location: [facility] CC: Dr. Ama Hamilton MD ~ Saw Superintendent: Signed [facility] Study report [facility] Imaging Services [address], [place] [address] Bilat Brst Alphonse Stand Alone MR#: [id number] Acct: [id number] Name: JACQUES FRITZMARGOT WALTER Rep #: [id number] : 1970 F 53 From: Malaika Quiros MD PCP: Dr. Ama Hamilton MD Status: R EG CLI Study:Bilat Brst Alphonse Stand Alone Date of Exa m: 06/25/24 Exam# [id number] Ordering Dr: Daysi Hamilton MD EXAM: DIAG [...] be mailed to the patient. Reading Location: [facility] CC: Dr. Ama Hamilton MD ~ Saw Superintendent: Signed [facility] DIAG MAMM W/CAD, BILATon DIAG MAMM W/CAD, BILAT [facility] Imaging Services [address] [place], [place] [address] DIAG MAMM W/CAD, BILAT MR#: [id number] Acct: [id number] Name: MARGOT RITTER Rep #: [id number] : 1970 F 53 From: Lyssa Quiros MD PCP: Dr. Ama Hamilton MD Status: REG CLI Study: DIAG MAMM W/CAD, BILAT Date of Exam: 06/25/24 Exam# [id number] Ordering Dr: Ama Hamilton MD EXAM: DIAG [...] be mailed to the patient. Reading Location: [id number] CC: Dr. Ama Hamilton MD Saw Superintendent: Signed Normal [facility] Internal Medicine Office Vis itodarnell 06-05-2024 Internal Medicine Office Visit [facility] [address] [place] [address] [place] [address] OFFICE VISIT Date of Service: 06/05/24 MR#: [id number] Acct: [id number] Name: MARGOT HU Rep #: [id number] : 1970 Provider: Dr. Ama duff MD Age/Sex: 53/F Location[place] 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 Normal [facility] CNOVon 05-28-2024 CNOV Office Visit (SPRTSO ) -------- FRITZMARGOT D ([id number]) 1970 F [facility] Date Time Provider Department 05/28/24 8:15 AM [...] two times a week. Biocidin Advanced Formula (Corrupt Lace) Take 5 Drops by mouth three times daily. A-EB/H6 (Bright White Formulas) Take 1-2 drops daily, increase to 10 drops per day as tolerated. Cortisol Credit Coordinator [address] ct[address] ([employer]) Stress, blood sugar, [...] MD This note was partially generated using Kiggit voice recognition system, and there may be some incorrect words, spellings, and punctuation that were not noted in checking the note before saving. Medical Decision Making: Medical Decision Making Level: 1 - N/A Allergies As of Date: 05/28/2024 Noted Allergy Reaction SULFAMETHOXAZOLE-TRIMETH OPRIM 04/11/2012 16 - Unknown ALEVE (NAPROXEN) 02/27/2013 4 - Hives BACTRIM (SULFAMETHOXAZOLE) 02/27 (more content not included)... Normal [facility] CBC W Auto Differential pane l (Bld)on 05-27-2024 Basophils (Bld) [#/Vol] 0.04 10*3/uL [facility] Basophils/100 WBC (Bld) 0.8 % C [facility] Differential cell count method Nom (Bld) Auto [facility] Eosinophils (Bld) [#/Vol] 0.08 10*3/uL [facility] Eosinophils/100 WBC (Bld) 1.6 % [facility] Erythrocyte distribution width (RBC) [Ratio] 13.1 % 11.5 - 15.0 % [facility] Hematocrit (Bld) [Volume fraction] 41.8 % 36.0 - 46.0 % [facility] Hemoglobin (Bld) [Mass/Vol] 14.1 g/dL 11.5 - 15.5 g/dL [facility] Immature granulocytes (Bld) [#/Vol] [facility] Immature granulocytes/100 WBC (Bld) 0.4 % [facility] Lymphocytes (Bld) [#/Vol] 1.62 10*3/uL [facility] Lymphocytes/100 WBC (Bld) 32 % [facility] MCH (RBC) [Entitic mass] 32.6 pg 26.0 - 34.0 pg [facility] MCHC (RBC) [Mass/Vol] 33.7 g/dL 30.5 - 36.0 g/dL [facility] MCV (RBC) [Entitic vol] 96.5 fL 80.0 - 100.0 fL [facility] Monocytes (Bld) [#/Vol] 0.41 10*3/uL [facility] Monocytes/100 WBC (Bld) 8.1 % C [facility] Neutrophils (Bld) [#/Vol] 2.89 10*3/uL [facility] Neutrophils/100 WBC (Bld) 57.1 % [facility] Nucleated RBC (Bld) [#/Vol] [facility] Nucleated RBC/100 WBC (Bld) [Ratio] 0 % /100 WBC [facility] Platelet mean volume (Bld) [Entitic vol] 10 fL 9.0 - 12.7 fL [facility] Platelets (Bld) [#/Vol] 343 10*3/uL [facility] RBC (Bld) [#/Vol] 4.33 10*6/uL 3.90 - 5.2 0 m/uL [facility] WBC (Bld) [#/Vol] 5.06 10*3/uL [facility] Basophils (Bld) [#/Vol] 0.04 10*3/uL Normal <0.11 [facility] Comment on above: Order Comment: Speci men Type: BLOOD SPECIMENOrdering Facility: [facility] Address: [address] [place] [address] Performed By: #### 4 537-7 ####[facility] LABCLIA [id number] [place] [address] [place]#### 93500-1 ####[facility] MILLTOWNCLIA [id number] [place] [address] [place] Basophils/100 WBC (Bld) 0.8 % Normal [facility] Comment on above: Order Comment: Speci men Type: BLOOD SPECIMENOrdering Facility: [facility] Address: [address] [place] [address] Performed By: #### 4 537-7 ####[facility] LABCLIA [id number] [place] [address] [place]#### 29564-6 ####[facility]OOK[facility]ILLEWNCLIA [id number] [place] [address] [place] Differential cell count method Nom (Bld) Auto Normal [facility] Comment on above: Order Comment: Speci men Type: BLOOD SPECIMENOrdering Facility: [facility] Address: [address] [place] [address] Performed By: #### 4 537-7 ####[facility] LABCLIA [id number] [place] [address] [place]#### 19463-2 ####[facility] MILLTOWNCLIA [id number] [place] [address] [place] Eosinophils (Bld) [#/Vol] 0.08 10*3/uL Normal <0.46 [facility] Comment on above: Order Comment: Speci men Type: BLOOD SPECIMENOrdering Facility: [facility] Address: [address] [place] [address] Performed By: #### 4 537-7 ####[facility] LABCLIA [id number] [place] [address] [place]#### 77531-8 ####[facility] MILLTOWNCLIA [id number] [place] [address] [place] Eosinophils/100 WBC (Bld) 1.6 % Normal [facility] Comment on above: Order Comment: Speci men Type: BLOOD SPECIMENOrdering Facility: [facility] Address: [address] [place] [address] Performed By: #### 4 537-7 ####[facility] LABCLIA [id number] [place] [address] [place]#### 43994-1 ####[facility]ERNCLIA [id number] [place] [address] [place] Erythrocyte distribution width (RBC) [Ratio] 13.1 % Normal 11.5-15.0 [facility] Comment on above: Order Comment: Speci men Type: BLOOD SPECIMENOrdering Facility: [facility] Address: [address] [place] [address] Performed By: #### 4 537-7 ####[facility] LABCLIA [id number] [place] [address] [place]#### 30266-9 ####[facility] MILLWNCLIA [id number] [place] [address] [place] Hematocrit (Bld) [Volume fraction] 41.8 % Normal 36.0-46.0 [facility] Comment on above: Order Comment: Speci men Type: BLOOD SPECIMENOrdering Facility: [facility] Address: [address] [place] [address] Performed By: #### 4 537-7 ####[facility] LABCLIA [id number] [place] [address] [place]#### 53773-6 ####[facility] MILLWNCLIA [id number] [place] [address] [place] Hemoglobin (Bld) [Mass/Vol] 14.1 g/dL Normal 11.5-15.5 [facility] Comment on above: Order Comment: Speci men Type: BLOOD SPECIMENOrdering Facility: [facility] Address: [address] [place] [address] Performed By: #### 4 537-7 ####[facility] LABCLIA [id number] [place] [address] [place]#### 42065-7 ####[facility]ERNCLIA [id number] [place] [address] [place] Immature granulocytes (Bld) [#/Vol] 10*3/uL Normal <0.10 [facility] Comment on above: Order Comment: Speci men Type: BLOOD SPECIMENOrdering Facility: [facility] Address: [address] [place] [address] Performed By: #### 4 537-7 ####[facility] LABCLIA [id number] [place] [address] [place]#### 03404-6 ####[facility] MILLWNCLIA [id number] [place] [address] [place] Immature granulocytes/100 WBC (Bld) 0.4 % Normal [facility] Comment on above: Order Comment: Speci men Type: BLOOD SPECIMENOrdering Facility: [facility] Address: [address] [place] [address] Performed By: #### 4 537-7 ####[facility] LABCLIA [id number] [place] [address] [place]#### 49872-8 ####[facility]OSPITALLIA [id number] [place] [address] [place] Lymphocytes (Bld) [#/Vol] 1.62 10*3/uL Normal 1.00-4.00 [facility] Comment on above: Order Comment: Speci men Type: BLOOD SPECIMENOrdering Facility: [facility] Address: [address] [place] [address] Performed By: #### 4 537-7 ####[facility] LABIA [id number] [place] [address] [place]#### 38029-8 ####[facility] [id number] [place] [address] [place] Lymphocytes/100 WBC (Bld) 32.0 % Normal [facility] Comment on above: Order Comment: Speci men Type: BLOOD SPECIMENOrdering Facility: [facility] Address: [address] [place] [address] Performed By: #### 4 537-7 ####[facility] LABIA [id number] [place] [address] [place]#### 08241-6 ####[facility]ITALL[facility] [id number] [place] [address] [place] MCH (RBC) [Entitic mass] 32.6 pg Normal 26.0-34.0 [facility] Comment on above: Order Comment: Speci men Type: BLOOD SPECIMENOrdering Facility: [facility] Address: [address] [place] [address] Performed By: #### 4 537-7 ####[facility] LABCLIA [id number] [place] [address] [place]#### 96415-5 ####[facility] AMANDANEW YORKNCLIA [id number] [place] [address] [place] MCHC (RBC) [Mass/Vol] 33.7 g/dL Normal 30.5-36.[address] [facility] Comment on above: Order Comment: Speci men Type: BLOOD SPECIMENOrdering Facility: [facility] Address: [address] [place] [address] Performed By: #### 4 537-7 ####[facility] LABCLIA [id number] [place] [address] [place]#### 79669-6 ####[facility]ENTERNCA [id number] [place] [address] [place] MCV (RBC) [Entitic vol] 96.5 fL Normal 80.0-100.0 C [facility] Comment on above: Order Comment: Speci men Type: BLOOD SPECIMENOrdering Facility: [facility] Address: [address] [place] [address] Performed By: #### 4 537-7 ####[facility] LABCLIA [id number] [place] [address] [place]#### 04522-4 ####[facility]ERNCLIA [id number] [place] [address] [place] Monocytes (Bld) [#/Vol] 0.41 10*3/uL Normal <0.87 [facility] Comment on above: Order Comment: Speci men Type: BLOOD SPECIMENOrdering Facility: [facility] Address: [address] [place] [address] Performed By: #### 4 537-7 ####[facility] LABCLIA [id number] [place] [address] [place]#### 92372-1 ####[facility]ERNCLIA [id number] [place] [address] [place] Monocytes/100 WBC (Bld) 8.1 % Normal [facility] Comment on above: Order Comment: Speci men Type: BLOOD SPECIMENOrdering Facility: [facility] Address: [address] [place] [address] Performed By: #### 4 537-7 ####[facility] LABCLIA [id number] [place] [address] [place]#### 28170-1 ####[facility] [id number] [place] [address] [place] Neutrophils (Bld) [#/Vol] 2.89 10*3/uL Normal 1.45-7.50 [facility] Comment on above: Order Comment: Speci men Type: BLOOD SPECIMENOrdering Facility: [facility] Address: [address] [place] [address] Performed By: #### 4 537-7 ####[facility] LABCLIA [id number] [address] [place]#### 15113-1 ####[facility]LEWNCLIA [id number] [place] [address] [place] Neutrophils/100 WBC (Bld) 57.1 % Normal [facility] Comment on above: Order Comment: Speci men Type: BLOOD SPECIMENOrdering Facility: [facility] Address: [address] [place] [address] Performed By: #### 4 537-7 ####[facility] LABCLIA [id number] [address] [place]#### 80239-9 ####[facility] [id number] [place] [address] [place] Nucleated RBC (Bld) [#/Vol] 10*3/uL Normal <0.01 [facility] Comment on above: Order Comment: Speci men Type: BLOOD SPECIMENOrdering Facility: [facility] Address: [address] [place] [address] Performed By: #### 4 537-7 ####[facility] LABIA [id number] [place] [address] [place]#### 93663-8 ####[facility] [id number] [place] [address] [place] Nucleated RBC/100 WBC (Bld) [Ratio] 0.0 /100 WBC Normal [facility] Comment on above: Order Comment: Speci men Type: BLOOD SPECIMENOrdering Facility: [facility] Address: [address] [place] [address] Performed By: #### 4 537-7 ####[facility] LABCLIA [id number] [address] [place]#### 60385-4 ####[facility] [id number] [place] [address] [place] Platelet mean volume (Bld) [Entitic vol] 10.0 fL Normal 9.0-12.7 [facility] Comment on above: Order Comment: Speci men Type: BLOOD SPECIMENOrdering Facility: [facility] Address: [address] [place] [address] Performed By: #### 4 537-7 ####[facility] LABCLIA [id number] [place] [address] [place]#### 10097-1 ####[facility] MILLWNCLIA [id number] [place] [address] [place] Platelets (Bld) [#/Vol] 343 10*3/uL Normal 150-400 [facility] Comment on above: Order Comment: Speci men Type: BLOOD SPECIMENOrdering Facility: [facility] Address: [address] [place] [address] Performed By: #### 4 537-7 ####[facility] LABCLIA [id number] [place] [address] [place]#### 16284-7 ####[facility] [id number] [place] [address] [place] RBC (Bld) [#/Vol] 4.33 10*6/uL Normal 3.90-5.20 [facility] Comment on above: Order Comment: Speci men Type: BLOOD SPECIMENOrdering Facility: [facility] Address: [address] [place] [address] Performed By: #### 4 537-7 ####[facility] LABCLIA [id number] [place] [address] [place]#### 94904-9 ####[facility] [id number] [place] [address] [place] WBC (Bld) [#/Vol] 5.06 10*3/uL Normal 3.70-11.00 [facility] Comment on above: Order Comment: Speci men Type: BLOOD SPECIMENOrdering Facility: [facility] Address: [address] [place] [address] Performed By: #### 4 537-7 ####[facility] LABCLIA [id number] [place] [address] [place]#### 56382-1 ####[facility]SVILLENCVIDYA [id number] [place] [address] [place] CNOVon 05-27-2024 CNOV Office Visit (UCWSTR ) -------- MARGOT HU ([id number]) 1970 F [facility] Date Time Provider Department 05/27/24 9:45 AM ROSAMARIA KINCAID [facility] During your visit today, we recorded the following information about you: Temperature Pulse Respiration Blood pressure 97.8 degrees 73/minute 18/minute 124/82 Weight 72.8 kg Rosamaria Kincaid PA-C 05/27/2024 12:10 PM Signed This note was created using Wetradetogether. Subjective Margot Hu is a 53 year [...] Like Sy (more content not included)... Normal [facility] CRP SerPl-mCncon 05-27-2024 CRP [Mass/Vol] mg/L Normal <0.9 [facility] Comment on above: Order Comment: Speci men Type: BLOOD SPECIMENOrdering Facility: [facility] Address: [address] [place] [address] Performed By: #### July [facility], 1987-07 ####[facility] LABORATORYCLIA [id number] [address] STATES OF [facility] Comprehensive metabolic 2000 panelon 05-27-2024 Albumin [Mass/Vol] 4.8 g/dL Normal 3.9-4.9 [facility] Comment on above: Order Comment: Speci men Type: BLOOD SPECIMENOrdering Facility: [facility] Address: [address] [place] [address] Performed By: #### July [facility], 1987-07 ####[employer] [facility] LABORATORYCLIA [id number] [address] [place] ALP [Catalytic activity/Vol] 60 U/L Normal 34-123 [facility] Comment on above: Order Comment: Speci men Type: BLOOD SPECIMENOrdering Facility: [facility] Address: [address] [place] [address] Performed By: #### July HARRELL, 1987-07 ####[facility]ORATORYCLIA [id number] [address] [place] ALT With P-5'-P [Catalytic activity/Vol] 27 U/L Normal 7-38 [facility] Comment on above: Order Comment: Speci men Type: BLOOD SPECIMENOrdering Facility: [facility] Address: [address] [place] [address] Performed By: #### July HARRELL, 1987-07 ####[facility]ORATORYCLIA [id number] [address] [place] Anion gap [Moles/Vol] 10 mmol/L Normal 8-[address] [facility] Comment on above: Order Comment: Speci men Type: BLOOD SPECIMENOrdering Facility: [facility] Address: [address] [place] [address] Performed By: #### July HARRELL, 1987-07 ####[facility] LABORATORYCLIA [id number] [address] [place] AST With P-5'-P [Catalytic activity/Vol] 28 U/L Normal 13-35 [facility] Comment on above: Order Comment: Speci men Type: BLOOD SPECIMENOrdering Facility: [facility] Address: [address] [place] [address] Performed By: #### July HARRELL, 1987-07 ####[facility]ORATORYCLIA [id number] [place] [address] [place] Bilirubin [Mass/Vol] 1.0 mg/dL Normal 0.2-1.3 [facility] Comment on above: Order Comment: Speci men Type: BLOOD SPECIMENOrdering Facility: [facility] Address: [address] [place] [address] Performed By: #### July HARRELL, 1987-07 ####[facility]ORATORYCLIA [id number] [place] [address] [place] Calcium [Mass/Vol] 10.0 mg/dL Normal 8.5-10.2 [facility] Comment on above: Order Comment: Speci men Type: BLOOD SPECIMENOrdering Facility: [facility] Address: [address] [place] [address] Performed By: #### July HARRELL, , 1987-07 ####[employer] GENERAL LABORATORYCLIA [id number] [place] [id number] [place] Chloride [Moles/Vol] 103 mmol/L Normal 98-107 [facility] Comment on above: Order Comment: Speci men Type: BLOOD SPECIMENOrdering Facility: [facility] Address: [address] [place] [address] Performed By: #### July HARRELL, , 1987-07 ####[facility] LABORATORYCLIA [id number] [place] [address] [place] CO2 [Moles/Vol] 29 mmol/L Normal 22-30 [facility] Comment on above: Order Comment: Speci men Type: BLOOD SPECIMENOrdering Facility: [facility] Address: [address] [place] [address] Performed By: #### July HARRELL, , 1987-07 ####[employer] GENERAL LABORATORYCLIA [id number] [place] [id number] [place] Creatinine [Mass/Vol] 0.88 mg/dL Normal 0.58-0.[address] [facility] Comment on above: Order Comment: Speci men Type: BLOOD SPECIMENOrdering Facility: [facility] Address: [address] [place] [address] Performed By: #### July HARRELL, 1987-07 ####[facility]ORATORYCLIA [id number] [place] [address] [place] Creatinine and Glomerular filtration rate.predicted panel (S/P/Bld) 78 mL/min/1.73m??? Normal >=60 [facility] Comment on above: Order Comment: Speci men Type: BLOOD SPECIMENOrdering Facility: [facility] Address: [address] [place] [address] Result Comment: Haylie mated Glomerular Filtration Rate [...] reflect actual GFR. Performed By: #### T [facility], 26457-5, 1987-07 ####SensioLabsMAN [facility] HOSPITALCLIA [id number] [place] [id number] [place] Glucose [Mass/Vol] 64 mg/dL Low 74-99 [facility] Comment on above: Order Comment: Eugenie dumont Type: BLOOD SPECIMENOrdering Facility: [facility] Address: [address] [place] [address] Result Comment: The [place] Diabetes Association (ADA) provides guidance for cutoff [...] Standards of Medical Care in Diabetes 2016, [place] [employer]. Diabetes Care. 2016.39(Suppl 1). Performed By: #### T [facility], , 1987-07 ####[facility] LABORATORYCLIA [id number] [place] [id number] [place] Potassium [Moles/Vol] 4.7 mmol/L Normal 3.7-5.[address] [facility] Comment on above: Order Comment: Eugenie dumont Type: BLOOD SPECIMENOrdering Facility: [facility] Address: [address] [place] [address] Performed By: #### T JULIO CESAR, 1989-07 ####[facility] LABORATORYCLIA [id number] [place] [address] [place] Protein [Mass/Vol] 6.9 g/dL Normal 6.3-8.0 [facility] Comment on above: Order Comment: Speci men Type: BLOOD SPECIMENOrdering Facility: [facility] Address: [address] [place] [address] Performed By: #### July HARRELL, 1987-07 ####[facility] LABORATORYCLIA [id number] [place] [address] [place] Sodium [Moles/Vol] 142 mmol/L Normal 136-144 [facility] Comment on above: Order Comment: Speci men Type: BLOOD SPECIMENOrdering Facility: [facility] Address: [address] [place] [address] Performed By: #### July HARRELL, 1987-07 ####[facility] LABORATORYCLIA [id number] [place] [address] [place] Urea nitrogen [Mass/Vol] 10 mg/dL Normal 7-21 [facility] Comment on above: Order Comment: Speci men Type: BLOOD SPECIMENOrdering Facility: [facility] Address: [address] [place] [address] Performed By: #### July HARRELL, 1987-07 ####[facility] LABORATORYCLIA [id number] [place] [address] [place] ESR Westergren method (Bld) [Velocity]on 05-27-2024 ESR (Bld) [Velocity] 2 mm/h [facility] Interpretation and review of laboratory results Normal [facility] ESR (Bld) [Velocity] 2 mm/h Normal 0-20 [facility] Comment on above: Order Comment: Speci men Type: BLOOD SPECIMENOrdering Facility: [facility] Address: [address] [place] [address] Performed By: #### 4 537-7 ####[facility] LABCLIA [id number] [facility] [place] [address] [place]#### [address]-6 ####[facility] IESHA [facility] [id number] [place] [id number] [place] TSH W/REFLEX FT4on 5 TSH Qn 1.600 m[IU]/L Normal 0.270-4.200 [facility] Comment on above: Order Comment: Speci men Type: BLOOD SPECIMENOrdering Facility: [facility] Address: [address] [place], [place] [address] Performed By: #### T [facility], 24995-7, 1987-07 ####[facility] LABORATORYCLIA [id number] [place] [address] [place] Guidance for arthrocentesis of Major jointon 05-06-2024 IMPRESSION: SUCCESSF UL ULTRASOUND GUIDED THERAPEUTIC INJECTION OF THE RIGHT ISCHIAL BURSA, DESCRIBED ABOVE. Attending Radiologist: Dr. Sven Rios MD Com Writer: Ralph Guaman MD - Fellow The procedure was performed by the health care legal assistant, and the attending radiologist personally supervised the entire procedure. Saw Superintendent: [facility] Transcribe Date/Time: May 06 2024 10:03A Dictated by : RALPH GUAMAN MD This examination was interpreted and the report reviewed and electronically signed by: SVEN RIOS MD on May 06 2024 4:38PM [facility] [email or web address]] DIVISION OF RADIOLOGY * * *Final Report* * * DATE OF EXAM: May 06 2024 9:05AM [facility] 1165 - US ASP/INJ HIP [...] needs. Procedure Start Time / Timeout Time: 08 f) Anesthesia Type: Local anesthesia: 3 mL [...] Communication Performed N/A c) Procedure End Time: 08 d) Conclusion: 1. Post-Procedure instructions:Verbal instructions were given. 2. The patient was discharged from the radiology department in stable condition. COMPLICATIONS: a) Significant Patient Complication: None b) Complications during the procedure: None RESULTS: Medication was injected into the bursa IMPRESSION IMPRESSION: SUCCESSFUL ULTRASOUND GUIDED THERAPEUTIC INJECTION OF THE RIGHT ISCHIAL BURSA, DESCRIBED ABOVE. Attending Radiologist: Dr. Sven Rios MD Com Writer: Ralph Guaman MD - Fellow The procedure was performed by the health care legal assistant, and the attending radiologist personally supervised the entire procedure. Saw Superintendent: JESUS Transcribe Date/Time: May 06 2024 10:03A Dictated by : RALPH GUAMAN MD This examination was interpreted and the report reviewed and electronically signed by: SVEN RIOS MD on May 06 2024 4:38PM EST [facility] Radiology Study observation (narrative) [facility] Guidance for arthrocentesis of Major jointOrdered By: Ccf Provider on 05-06-2024 [facility] US ASP/INJ HIP JT/BURSA RTon 05-06-2024 [...] ABOVE. Attending Radiologist: Dr. Sven Rios MD Com Writer: Ralph Guaman MD - Fellow The procedure was performed by the health care legal assistant, and the attending radiologist personally supervised the entire procedure. Saw [facility] Transcribe Date/Time: May 06 2024 10:03A Dictated by : RALPH GUAMAN MD This examination was interpreted and the report reviewed and electronically signed by: SVEN RIOS MD on May 06 2024 4:38PM EST [id number] Normal [facility] 04-17-2024 [facility] Telephone (RULTTB) -------- MARGOT HU ([id number]) 1970 F [facility] Date Time Provider Department 04/17/24 EASTON WU During your visit today, we recorded the following information about you: Easton Wu 04/17/2024 12:05 PM Signed Visit Type: INJ ONLY 1 Visit Length: 60 MINUTES Order Name/Protocol: US ASP/INJ HIP JT/BURSA RT; RT ISCHIAL BURSA INJ. Preferred Provider: N/A Comment: N/A Location: [facility] Slot held: N/A ZehraEaston wright 04/17/2024 1:31 PM Signed PT scheduled for [...] times a week. - Biocidin Advanced Formula ([employer]ricket[employer]) Take 5 Drops by mouth three times daily. - A-EB/H6 (Bright White Formulas) Take 1-2 drops daily, increase to 10 drops per day as tolerated. - Cortisol Credit Coordinator 90 ct. (Integrative Therapeutics) Stress, blood sugar, [...] Encounter Status:Closed by EASTON WU on 04/17/24 [facility] CNOVon 04-16-2024 CNOV Office Visit (SPRTSO ) -------- MARGOT HU ([id number]) 1970 F [facility] Date Time Provider Department 04/16/24 2:15 PM [...] Denies Patient with a history of bilateral [place] medius abductor repairs done in 2008 by outside surgeon [employer]. 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 Biocidin Advanced Formula (Corrupt Lace) Take 5 Drops by mouth three times daily. A-EB/H6 (Bright White Formulas) Take 1-2 drops daily, increase to 10 drops per day as tolerated. Cortisol Credit Coordinator 90 ct. (Integrative Therapeutics) Stress, blood sugar, [...] or signi (more content not included)... Normal [facility] XR HIP 3V PELV+ AP/LAT RTon 04-16-2024 [...] L5 transverse process. No other significant abnormality. Saw Superintendent: [employer] Transcribe Date/Time: Apr 16 2024 5:52P Dictated by : CRIS CARTER MD This examination was interpreted and the report reviewed and electronically signed by: CRIS CARTER MD on Apr 16 2024 5:52PM EST [id number] Normal [facility] XR Pelvis and Hip - right [...] L5 transverse process. No other significant abnormality. Saw Superintendent: [facility] Transcribe Date/Time: Apr 16 2024 5:52P Dictated by : CRIS CARTER MD This examination was interpreted and the report reviewed and electronically signed by: CRIS CARTER MD on Apr 16 2024 5:52PM [facility] [[email or web address]] DIVISION OF RADIOLOGY Provider, Cc José shields [place] - 04/16/2024 * * *Final Report* * [...] L5 transverse process. No other significant abnormality. Saw Superintendent: JESUS Transcribe Date/Time: Apr 16 2024 5:52P Dictated by : CRIS CARTER MD This examination was interpreted and the report reviewed and electronically signed by: CRIS CARTER MD on Apr 16 2024 5:52PM [facility] Radiology Study observation (narrative) Pablo smith [facility] XR Pelvis and Hip - right AP and Lateral frogOrdered By: Ccf Provider on 04-16-2024 [facility] CNOVon 04-09-2024 CNOV Office Visit (OMMS) -------- MARGOT HU ([id number]) 1970 [facility] Date Time Provider Department 04/09/24 4:00 PM TANIKA ALVES [facility] During your visit today, we recorded the [...] dedicated to preparing to see the patient, jjkp-ff-gmil patient care, completing clinical documentation, obtaining and/or reviewing separately obtained history, performing a medically appropriate examination, counseling and educating the patient/family/caregiver , and time excludes procedure OMT . Thi (more content not included)... Normal [facility] Osteopathic manipulative dominic atment (OMT)on 04-09-2024 Tanika Alves DO 04/09/2024 5:09 PM Osteopathic manipulative treatment (OMT) Time/Date:04/09/2024 4:31 PM Informed Consent Consent Obtained: Verbal [place] Protocol A moment to CARE was completed. [...] if symptoms worsen or fail to improve [facility] Internal Medicine Office Vis aric 03-05-2024 Internal Medicine Office Visit [facility] [place] [address] [place] [address] OFFICE VISIT Date of Service: 03/05/24 MR#: [id number] Acct: [id number] Name: MARGOT HU Rep #: [id number] : 1970 Provider: KHALIDA Tejeda Age/Sex: 53/F Location: 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 nothing is helping. There is not radiation down leg, and is pin pointed. Sitting and walking on even surfaces hurts the worse. Has been sitting on a donut. Thinks it is bursitis. [facility] Medical History Wears contact lenses Post-menopausal Open [...] Eyes Eyes: (more content not included)... Normal [facility] CNOVon 02-15-2024 CNOV Office Visit (OMWI) -------- MARGOT HU ([id number]) 1970 F [facility] Date Time Provider Department 02/15/24 8:00 AM BRUNOTANIKA MORA RADHA During your visit today, we recorded [...] bursitis persis (more content not included)... Normal [facility] Osteopathic manipulative dominic atment (OMT)on 02-15-2024 Tanika Alves DO 02/15/2024 8:37 AM Osteopathic manipulative treatment (OMT) Time/Date:02/15/2024 8:34 AM Informed Consent Consent Obtained: Verbal [place] Protocol A moment to CARE was completed. [...] if symptoms worsen or fail to improve [facility] CNOVon 01-03-2024 CNOV Office Visit (OMMS) -------- MARGOT HU ([id number]) 1970 [facility] Date Time Provider Department 01/03/24 9:00 AM TANIKA ALVES [facility] During your visit today, we recorded the [...] documentation INFLUENZA VACCINE, AGE 6MO-64YR, TRIVALENT (FLUZONE) Mengcao COVID-19 VACCINE AGE 12+ YR (COMIRNATY) Patient [...] dedicated to preparing to see the patient, eora-ur-xrnn patient care, completing clinical documentation, obtaining and/or [...] and tr (more content not included)... Normal [facility] Osteopathic manipulative dominic atment (OMT)on 01-03-2024 Long TanikaDO 01/03/2024 10:31 AM Osteopathic manipulative treatment (OMT) Time/Date:01/03/2024 9:35 AM Informed Consent Consent Obtained: Verbal [place] Protocol SIGN IN Special Equipment: N/A Patient/Surrogate [...] if symptoms worsen or fail to improve [facility] CNOVon 12-07-2023 CNOV Office Visit (PAMELA ) -------- FRITZMARGOT Luis ([id number]) 1970 F [facility] Date Time Provider Department 12/07/23 9:30 AM EASTON PARKER During your visit today, we recorded the following information about you: Respiration Weight Height 16/minute 71.2 kg 1.803 m Easton Parker MD 12/07/2023 11:30 AM Signed Patient presents with: Right Hand - Established Patient: 1 month follow up HISTORY OF PRESENT ILLNESS Margot Luis Hu presents to the office for follow [...] times a week. - Biocidin Advanced Formula (Corrupt Lace) Take 5 Drops by mouth three times daily. - A-EB/H6 (Bright White Formulas) Take 1-2 drops daily, increase to 10 drops per day as tolerated. - Cortisol Credit Coordinator 90 ct. ([employer]) Stress, blood sugar, [...] 06/07/2017 Abdominal (more content not included)... Normal [facility] CNOVon 12-03-2023 [facility] Office Visit (OMMS) -------- MARGOT HU ([id number]) 1970 [facility] Date Time Provider Department 12/03/23 9:00 AM TANIKA ALVES [facility] During your visit today, we recorded the [...] dedicated to preparing to see the patient, nmbh-wv-ssbw patient care, completing clinical documentation, obtaining and/or [...] 12/03/2023 Procedure (more content not included)... Normal [facility] Osteopathic manipulative dominic atment (OMT)on 12-03-2023 Tanika Alves DO 12/03/2023 9:29 AM Osteopathic manipulative treatment (OMT) Time/Date:12/03/2023 9:27 AM Informed Consent Consent Obtained: Verbal [place] Protocol SIGN IN Special Equipment: N/A Patient/Surrogate [...] if symptoms worsen or fail to improve [facility] [employer] [facility] Analyst Office Visit Reporton 11-21-2023 Security Operations Center Analyst Office Visit Report [facility] [address], [address] [place] [address] OFFICE VISIT Date of Service: 11/21/23 MR#: [id number] Acct: [id number] Name: MARGOT HU Rep #: [id number] : 1970 Provider: Dr. Natalya Choudhary DO Age/Sex: 53/F Location: 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 Normal [facility] Osteopathic manipulative dominic atment (OMT)on 11-15-2023 Tanika Alves DO 11/15/2023 9:40 AM Osteopathic manipulative treatment (OMT) Time/Date:11/15/2023 9:37 AM Informed Consent Consent Obtained: Verbal [place] Protocol SIGN IN Special Equipment: N/A Patient/Surrogate [...] if symptoms worsen or fail to improve [facility] CBC-Complete Blood Cnt No Di ffon 11-06-2023 Erythrocyte distribution width (RBC) [Ratio] 13.0 % Normal 11.6-14.6 [facility] Comment on above: Performed By: #### B TSPAT, L100.0500 #### [facility] [address] [place], [address] Hematocrit (Bld) [Volume fraction] 38.5 % Normal 37-47 [facility] Comment on above: Performed By: #### B TSPAT, L100.0500 #### [facility] [address] [place], [address] Hemoglobin (Bld) [Mass/Vol] 12.8 g/dL Normal 12.0-15.0 [facility] Comment on above: Performed By: #### B TSPAT, L100.0500 #### [facility] [address] [place], [address] MCH (RBC) [Entitic mass] 32.2 pg High 27.0-32.0 [facility] Comment on above: Performed By: #### B TSPAT, L100.0500 #### [facility] [address] [place], [address] MCHC (RBC) [Mass/Vol] 33.2 g/dL Normal 32-36 [facility] Comment on above: Performed By: #### B TSPAT, L100.0500 #### [facility] [address] [place], [address] MCV (RBC) [Entitic vol] 96.7 fL Normal 81-[address] [facility] Comment on above: Performed By: #### B TSPAT, L100.0500 #### [facility] [address] [place], [address] Platelet mean volume (Bld) [Entitic vol] 10.4 fL Normal 6.2-12.0 [facility] Comment on above: Performed By: #### B TSPAT, L100.0500 #### [facility] [address] [place], [address] Platelets (Bld) [#/Vol] 270 10*3/uL Normal 150-450 [facility] Comment on above: Performed By: #### B TSPAT, L100.0500 #### [facility] [address] [place], [address] RBC (Bld) [#/Vol] 3.98 10*6/uL Low 4.2-5.4 [facility] Comment on above: Performed By: #### B TSPAT, L100.0500 #### [facility] [address] [place], [address] RDW SD 46.6 fl High 35.1-43.9 [facility] Comment on above: Performed By: #### B TSPAT, L100.0500 #### [facility] [address] [place], [address] WBC (Bld) [#/Vol] 4.9 10*3/uL Normal 4.4-11.0 [facility] Comment on above: Performed By: #### B TSPAT, L100.0500 #### [facility] [address] [place], [address] Discharge Instructionon 10-[address] [facility] Medical Records Department [address] [place] [address] Instructions for Home/Discharge Instructions 11/06/23 0713 MR#: [id number] Acct: [id number] Name: MARGOT HU Rep #: [id number] : 1970 53 From: Natalya Schaffer DO PCP: Dr. Ama Hamilton MD Status:REG [facility] Discharge Instructions Diet Discharge Diet: No restrictions [...] Up With: Natalya Schaffer DO When: Call [phone] to schedule appointment. Test Results: Test results from this visit will be discussed in further detail at your follow-up appointment, if applicable. Discharge Plan Admission Attending Provider: Natalya Schaffer Primary Care Provider: Ama Hamilton Instructions Print Language: Yi Discharge Orders/Prescriptions Prescriptions: No Action fnqti-re-9-tkx-oae-kwcom ho-ast [krill oil] [id number] mg capsule 1 cap PO BID melatonin [...] Order can be placed): Home, Self Care 11/06/23 0714 Natalya Schaffer DO CC: Dr. Ama Hamilton MD Signed Normal [facility] MR/POSTOP.Bernarda 11-06-2023 MR/POSTOP.[facility] Medical Records Department [address] [place] [address] Anesthesia Postop Eval I 11/06/23 0806 MR#: [id number] Acct: [id number] Name: MARGOT HU #: [id number] : 1970 53 From: Blessing Elizondo CRNA PCP: Dr. Ama Hamilton MD Status:REG SDC Y Race: C Location: [place] [address] Anesthesia: Postop Eval I Current Vital Signs [...] 1 completed: Yes 11/06/23806 Date Blessing Elizondo RENTAL SALES AGENT Cosigner Signature: Date CC: Signed Normal [facility] MR/[id number] 11-06-2023 [facility] Medical Records Department [address] [place] [address] Anesthesia Postop Eval II 11/06/23 0853 MR#: [id number] Acct: [id number] Name: MARGOT HU Rep #: [id number] : 1970 53 From: Dank Ely MD PCP: Dr. Ama Hamilton MD Status:REG [facility] Y Race: C Location: [place] [address] Anesthesia Postop Eval I Sum Postop Eval Completion status Anesthesia document: Postop Eval 1 completed: Yes Anesthesia Postop Eval I Summary Anesthesia Postop Eval I Summary: Anesthesia Postop Eval I: Assessment Summary Airway patent Yes 11/06/23 08:07 RENTAL SALES AGENT.JDEF Spontaneous unlabored Yes 11/06/23 08:07 RENTAL SALES AGENT.JDEF respirations Mental status Awake,Calm 11/06/23 08:07 RENTAL SALES AGENT.JDEF nausea No 11/06/23 08:07 RENTAL SALES AGENT.JDEF Vomiting No 11/06/23 08:07 RENTAL SALES AGENT.JDEF Anesthesia Postop Eval I: Fluid Summary Crystalloid volume administer 500 11/06/23 08:07 RENTAL SALES AGENT.JDEF (ml) Colloids volume administered ( ml) Blood Product volume administered (ml) Total IV fluid infused 500 11/06/23 08:07 RENTAL SALES AGENT.JDEF Anesthesia Postop Eval I: Summary Notes Anesthesia Complication No 11/06/23 08:07 RENTAL SALES AGENT.JDEF Anesthesia Complication Comment: Post-operative progress note Anesthesia: Postop Eval II Evaluation Mental status: Awake Pain Level: 0 nausea: No Vomiting: No 11/06/23 0853 Date Dank Ely MD Cosigner Signature: Date CC: Signed Normal [facility] Operative Reporton [address] [facility] Medical Records Department [address] [facility] [place] [address] Operative Report 11/06/23 0806 MR#: [id number] Acct: [id number] Name: MARGOT HU Rep #: [id number] : 1970 53 From: Natalya Schaffer DO PCP: Dr. Ama Hamilton MD Status:[facility] Location: [place] [address] Problems Associated Problem List Diagnoses (1) Polyp of cervix uteri: (2) Postmenopausal bleeding: Report of Operation Date of Procedure: 11/06/23 Pre-Operative Diagnosis: perimenopausal bleeding, ultrasound finding of polyp of cervix Post-Operative Diagnosis: perimenopausal bleeding, ultrasound finding of polyp of cervix Surgery/Procedure Performed:: hysteroscopy, symphion D C/polypectomy Description of Surgical Findings:: small cervical polyp like structures visualized. fluid deficit 600cc Surgeon: Natalya Schaffer clinical massage therapist: None Type of Anesthesia: MAC and Topical [...] Multi Select Codes Urinary/Genital Urinary/Genital CPT Codes: 20253 Hysteroscopy,EMC, Polypectomy 11/06/23 0809 Cosigner Signature (if applicable): CC: Dr. Ama Hamilton MD; Dr. Natalya Schaffer DO Signed Normal [facility] Surgery Specimen Level Julissa 11-06-2023 Surgery Specimen Level IV Patient Age/Sex Location Account Attending Physician HUMARGOT 53/F [facility] [id number] Dr. Natalya Schaffer, D Specimen: [id number] Received: 11/06/23 Status: ASAEL Laguna Num: [id number] Spec Type: ENDOM BX/C Subm Dr: Dr. Natalya Schaffer, DO HEADER OPERATION: Hysteroscopy, Luis Thomson, polypectomy PRE-OP DIAGNOSIS: Polyp of cervix uteri, post menopausal bleed TISSUE SUBMITTED: Endometrial curettings MICROSCOPIC DIAGNOSIS Endometrial curettings: Proliferative endometrium with glandular and stromal breakdown. Fragments of benign ectocervical and endocervical mucosa and mucous. Fragments of myometrium. [facility] 11/07/2023 MICROSCOPIC DESCRIPTION Slides are reviewed. GROSS DESCRIPTION Received in fixative is one container labeled with the patient's name and designated Endometrial curettings. The specimen consists of multiple irregular fragments of pedro-pink soft tissue mixed with mucoid tissue that in aggregate measure 5.0 x 3.0 x 0.2 cm. The specimen is totally submitted in two cassettes. [facility] 11/06/2023 TC:5 CPT:74035 Patient Age/Sex Location Account Attending Physician MARGOT HU 53/[address] [facility] [id number] Luis Morrow Signed (signature on file) Dr. Cj Daniels MD 11/07/23 1116 Normal [facility] Comment on above: Performed By: #### P GONSALO #### [facility] [address] [place], [place], [address] Type AND Screen - PAT ONLYon 11-06-2023 ABO and Rh group Nom (Bld) Blood group A Rh(D) positive Normal [facility] Comment on above: Order Comment: Reaso n for Laboratory Test PREOP [id number] No N N S 0600 D C Performed By: #### B TSPAT, L100.0500 #### [facility] [address] [place], [address] CNOVon 11-02-2023 CNOV Office Visit (AGORT ) -------- MARGOT HU ([id number]) 1970 F [facility] Date Time Provider Department 11/02/23 8:45 AM [...] questions or concerns. Referring Provider: EASTON PARKER [[id number]] Allergies As of Date: 11/02/2023 Noted Allergy [...] right hand with foreign body, subsequent encounter [L26.142M] Prescriptions as of 11/02/2023 - Estradiol (ZANDER) 0.0375 mg/24 hr Apply 1 Patch as directed two times a week. - mupirocin (BACTROBAN) 2 % ointment Apply to affected area three times a day for 10 days. - Biocidin Advanced Formula (Corrupt Lace) Take 5 Drops by mouth three times daily. - A-EB/H6 (Bright White Formulas) Take 1-2 drops daily, increase to 10 drops per day as tolerated. - Cortisol Credit Coordinator 90 ct. ([employer]) Stress, blood sugar, [...] S FUM (more content not included)... Normal [facility] Security Operations Center Analyst Office Visit Reporton 10-29-2023 Security Operations Center Analyst Office Visit Report [facility] [address] [place] [address] OFFICE VISIT Date of Service: 10/29/23 MR#: [id number] Acct: [id number] Name: MARGOT HU Rep #: [id number] : 1970 Provider: Dr. Natalya Choudhary DO Age/Sex: 52/F Location: [facility] Status: Signed Intake Vital Signs 07/30/23 11:59 10/29/23 15:38 10/29/23 15:40 Height 5 ft 11 in 5 ft 11 in 5 ft 11 in Weight: 159 lb 2 oz 160 lb BMI 22.1 22.3 BP 110/72 126/84 H Intake Visit Reasons: D C polypectomy Vegetable Farmer Required: No Is patient in pain?: No [...] BID 04/19/17 10/29/23 History 50 mg-epa 80 qn-rbarka-ihqck capsule (krill oil) cholecalciferol (vitamin D3) 125 [...] Acute (3) (more content not included)... Normal [facility] CNOVon 10-26-2023 CNOV Office Visit (AGHWW1 ) -------- MARGOT HU ([id number]) 1970 F [facility] Date Time Provider Department 10/26/23 10:00 AM [...] questions or concerns. Referring Provider: ANTONIO VIVAR [[id number]] Allergies As of Date: 10/26/2023 Noted Allergy Reaction SULFAMETHOXAZOLE-TRIMETH OPRIM 04/11/2012 16 - Unknown ALEVE (NAPROXEN) 02/27/2013 4 - Hives BACTRIM (SULFAMETHOXAZOLE) 02/27/2013 14 - Other: (more content not included)... Normal [facility] CNPNon 10-25-2023 CNPN Telephone (AGPOB3) -------- MARGOT HU ([id number]) 1970 [facility] Date Time Provider Department 10/25/23 AG [...] other than patient: pt Best contact number: [phone] Thank you, Marleen Combs October 25, 2023 [...] for 10 days. - Biocidin Advanced Formula (Corrupt Lace) Take 5 Drops by mouth three times daily. - A-EB/H6 (Bright White Formulas) Take 1-2 drops daily, increase to 10 drops per day as tolerated. - Cortisol Credit Coordinator 90 ct. ([employer]) Stress, blood sugar, [...] Encounter Status:Closed by BLANCA MAC on 10/25/23 [facility] XR Hand - right PA and Later al and Obliqueon 10-25-2023 IMPRESSION: Multiple tiny densities between the third and fourth metatarsal heads which could be due to foreign bodies Saw Superintendent: PSCB Transcribe Date/Time: Oct 25 2023 11:26A Dictated by : MIKA PETE MD This examination was interpreted and the report reviewed and electronically signed by: MIKA PETE MD on Oct 25 2023 11:28AM [facility] [[email or web address]] DIVISION OF RADIOLOGY * * *Final Report* [...] to foreign bodies. DIVISION OF RADIOLOGY Provider, Renée shields [place] - 10/25/2023 * * *Final Report* * [...] which could be due to foreign bodies Saw Superintendent: [facility] Transcribe Date/Time: Oct 25 2023 11:26A Dictated by : MIKA PETE MD This examination was interpreted and the report reviewed and electronically signed by: MIKA PETE MD on Oct 25 2023 11:28AM EST [facility] Radiology Study observation (narrative) [facility] XR Hand - right PA and Later al and ObliqueOrdered By: Ccf Provider on 10-25-2023 [facility] Osteopathic manipulative dominic atment (OMT)on 10-02-2023 Tanika Alves DO 10/02/2023 9:15 AM Osteopathic manipulative treatment (OMT) Time/Date:10/02/2023 9:09 AM Informed Consent Consent Obtained: Verbal [place] Protocol SIGN IN Special Equipment: N/A Patient/Surrogate [...] if symptoms worsen or fail to improve [facility] Cervical or vaginal specimen microscopic examination by liquid based cytology (reportOrdered By: Natalya Aguero on 07-30-2023 Cytology report Cyto stain.thin prep Doc (Cvx/Vag) Comment . [facility] Comment on above: Criteria not met, HP V Genotype not performed.Performed at: [facility] [id number] Director: Kesha Mcclellan MD, Phone: [phone] at: = - [facility] [id number] Director: Kesha Mcclellan MD, Phone: [phone] Cervical or vagninal specime n microscopic examination by cytology stain (reported asOrdered By: Natalya Aguero on 07-30-2023 Cytology report Cyto stain Doc (Cvx/Vag) Comment . [facility] Comment on above: The Pap smear is [...] DNA Probe+sig amp Ql (Cvx) Negative Negative [facility] Comment on above: This nucleic acid am plification test detects fourteen high-risk HPV types (16,18,31,33,35,39,45,51,52,56,58,59,66,68)without differentiation. Laboratory - CytologyOrdered By: Natalya Aguero on 07-30-2023 Head Transfer Clerk Cyto stain Nom (Cvx/Vag) [ID] Comment . [facility] Comment on above: Symone Eller, Cyto technologist (ASCP) Laboratory - Miscellaneous t estsOrdered By: Natalya Aguero on 07-30-2023 Service comment (Unsp spec) [Interp] . . [facility] Thin prep Papanicolaou smear with manual screeningOrdered By: Natalya Aguero on 07-30-2023 Thin prep Papanicolaou smear with manual screening Comment . [facility] Comment on above: NEGATIVE FOR INTRAEP ITHELIAL LESION OR MALIGNANCY. This liquid based Th inPrep(R) pap test was screened withthe use of an image guided system. Osteopathic manipulative dominic atment (OMT)on 07-25-2023 Tanika Alves DO 07/25/2023 9:01 AM Osteopathic manipulative treatment (OMT) Time/Date:07/25/2023 8:58 AM Informed Consent Consent Obtained: Verbal [place] Protocol SIGN IN Special Equipment: N/A Patient/Surrogate [...] if symptoms worsen or fail to improve [facility] Absolute lymphocyte countOrd ered By: Ama [place] on 10-23-2022 Lymphocytes Auto (Unsp spec) [#/Vol] 1.43 10*3/uL 0.83-4.51 [facility] Basophil percentageOrdered B y: Ama [place] on 10-23-2022 Basophils/100 WBC (Bld) 0.5 % 0-[address] [facility] Bilirubin [Mass/Vol] 0.50 mg/dL 0.20-1.00 [facility] Comment on above: For patients on eltr ombopag therapy, use of Dimension [place] TBIL is not recommended. Chloride [Moles/Vol] 104 mmol/L 98-107 [facility] Cholesterol [Mass/Vol] 109 mg/dL <200 [facility] Comment on above: <200 mg/dL Desirable 200-240 mg/dL Borderline >240 mg/dL High Risk Eosinophils/100 WBC (Bld) 0.7 % 0-5 [facility] Glucose [Mass/Vol] 105 mg/dL 74-106 [facility] Comment on above: Fasting Glucose resu lt from 100 to 125 mg/dL suggests IMPAIRED HOMEOSTASIS per A.D.A. criteria. Neutrophils (Bld) [#/Vol] 3.7 10*3/uL 2.0-7.7 [facility] Neutrophils/100 WBC (Bld) 67.2 % 47-70 [facility] Potassium [Moles/Vol] 4.3 mmol/L 3.5-5.1 [facility] Protein [Mass/Vol] 6.4 g/dL 6.4-8.2 [facility] Sodium [Moles/Vol] 138 mmol/L 136-145 [facility] Triglyceride [Mass/Vol] 146 mg/dL <199 [facility] Comment on above: The drugs N-Acetylcy steine and Metamizole may falsely depress this assay.Serum Triglycerides Reference Interval Normal <150 mg/dL Borderline high 150 - 199 mg/dL High 200 - 499 mg/dL Very High > or = 500 mg/dL WBC (Bld) [#/Vol] 5.5 10*3/uL 4.4-11.0 [facility] Blood erythrocytes count (nu mber/volume)Ordered By: Ama [place] on 10-23-2022 RBC (Bld) [#/Vol] 4.09 10*6/uL 4.2-5.4 [facility] Blood hemoglobin measurement (mass/volume)Ordered By: Ama [place] on 10-23-2022 Hemoglobin (Bld) [Mass/Vol] 13.1 g/dL 12.0-15.0 [facility] Blood lymphocytes/100 leukoc ytesOrdered By: lynnette Hamilton on 10-23-2022 Lymphocytes/100 WBC (Bld) 25.9 % 19-41 [facility] Blood monocytes/100 leukocyt esOrdered By: [facility] [place] on 10-23-2022 Monocytes/100 WBC (Bld) 5.3 % 0-[address] [facility] Blood platelet mean volumeOr dered By: lynnette Hamilton on 10-23-2022 Platelet mean volume (Bld) [Entitic vol] 10.4 fL 6.2-12.0 [facility] Determination of erythrocyte mean corpuscular volume (MCV)Ordered By: sidd[place]ens[place]cuong [place] on 10-23-2022 MCV (RBC) [Entitic vol] 98.5 fL 81-99 [facility] Hematocrit Auto (Bld) [Volum e fraction]Ordered By: [facility] [place] on 10-23-2022 Hematocrit (Bld) [Volume fraction] 40.3 % 37-47 [facility] Laboratory - Chemistry and C hemistry - challengeOrdered By: lynnette Hamilton on 10-23-2022 ALP [Catalytic activity/Vol] 57 U/L 45-117 [facility] ALT [Catalytic activity/Vol] 27 U/L 13-56 [facility] CO2 [Moles/Vol] 30.0 mmol/L 21.0-32.0 [facility] Globulin (S) [Mass/Vol] 2.7 g/dL 2.2-4.2 [facility] Urea nitrogen/Creatinine [Mass ratio] 12.5 mg/mg 10-20 [facility] Laboratory - Hematology and Cell countsOrdered By: [facility] [place] on 10-23-2022 Erythrocyte distribution width (RBC) [Entitic vol] 48.3 fL 35.1-43.9 [facility] Erythrocyte distribution width (RBC) [Ratio] 13.3 % 11.6-14.6 [facility] Immature granulocytes/100 WBC (Bld) 0.400 % 0.0-0.9 [facility] Comment on above: IG% - Immature Granu locytes (promyelocytes, myelocytes and metamyelocytes) > 1% indicates that a LEFT SHIFT is Present. MCH (RBC) [Entitic mass] 32.0 pg 27.0-32.0 [facility] Nucleated RBC/100 WBC (Bld) [Ratio] 0 % 0-5 [facility] MCHC Auto (RBC) [Mass/Vol]Or dered By: Ama [place] on 10-23-2022 MCHC (RBC) [Mass/Vol] 32.5 g/dL 32-36 [facility] No Panel InformationOrdered By: Ama Hamilton on 10-23-2022 Estimated GFR (MDRD) Amer 78 mL/min >60 [facility] Comment on above: GFR Calc Estimated GFR (MDRD) Non-Af Amer 65 mL/min >60 [facility] Comment on above: Non- GFR Calc Thyroid Stimulating Hormone (TSH) 0.63 uIU/mL 0.358-3.74 [facility] Platelets bldOrdered By: Timoteo Hamilton on 10-23-2022 Platelets (Bld) [#/Vol] 355 10*3/uL 150-450 [facility] Serum or plasma albumin renee urement (mass/volume)Ordered By: Ama Hamilton on 10-23-2022 Albumin [Mass/Vol] 3.7 g/dL 3.2-5.0 [facility] Serum or plasma albumin/glob ulin mass ratioOrdered By: Ama Hamilton on 10-23-2022 Albumin/Globulin [Mass ratio] 1.4 {ratio} 0.9-2.4 [facility] Serum or plasma calcium renee urement (mass/volume)Ordered By: Ama Hamilton on 10-23-2022 Calcium [Mass/Vol] 8.7 mg/dL 8.5-10.1 [facility] Serum or plasma cholesterol in HDL measurement (mass/volume)Ordered By: Ama Hamilton on 10-23-2022 Cholesterol in HDL [Mass/Vol] 52 mg/dL >40 [facility] Comment on above: The drugs N-Acetylcy steine and Metamizole may falsely depress this assay. Reference Range HDL <40 mg/dL Low HDL Cholesterol HDL >or= 60 mg/dL High HDL Cholesterol Serum or plasma cholesterol in VLDL measurement (mass/volume)Ordered By: Ama Hamilton on 10-23-2022 Cholesterol in VLDL [Mass/Vol] 29 mg/dL 5-40 [facility] Serum or plasma creatinine m easurement (mass/volume)Ordered By: Ama Hamilton on 10-23-2022 Creatinine [Mass/Vol] 0.96 mg/dL 0.55-1.02 [facility] Comment on above: The validity of the calculated GFR & GFRAA in patients over 70 years has not been determined. Clinical correlation is essential. Serum or plasma low density lipoprotein (LDL) cholesterol measurement (mass/volume)Ordered By: [facility] [place] on 10-23-2022 Cholesterol in LDL [Mass/Vol] 28 mg/dL 0-130 [facility] Serum or plasma urea nitroge n measurement (mass/volume)Ordered By: [facility] Carrdaysi on 10-23-2022 Urea nitrogen [Mass/Vol] 12 mg/dL 7-18 [facility] Thin prep Papanicolaou smear with manual screeningOrdered By: siddharth[place]cuong [place] on 10-23-2022 Thin prep Papanicolaou smear with manual screening 21 U/L 15-37 [facility] Thin prep Papanicolaou smear with manual screening 4 5-15 [facility] Laboratory - Microbiology an d Antimicrobial susceptibilityOrdered By: Anastasia Irving on 02-27-2022 SARS-CoV-2 (COVID-19) RNA SANDIE+probe Ql (Unsp spec) Not detected Not Detect [facility] Comment on above: Normal Reference Ran ge: Not DetectedMethod:(RT-PCR) real-time reverse transcriptase PCRLuminex ALYSSA Instrument*The Food and Drug Administration (FDA) has [...] 02-23-2022 Basophil percentage 0 SEEN /hpf 0-5 [facility] Chloride [Moles/Vol] 102 mmol/L 98-107 [facility] Glucose [Mass/Vol] 96 mg/dL 74-106 [facility] Potassium [Moles/Vol] 3.7 mmol/L 3.5-5.1 [facility] Sodium [Moles/Vol] 139 mmol/L 136-145 [facility] Bilirubin Test strip Ql (U)O rdered By: Dr. Funes on 02-23-2022 Bilirubin Ql (U) Negative Negative [facility] Ketones Test strip Ql (U)Ord ered By: Dr. Funes on 02-23-2022 Ketones Ql (U) 150 mg/dl Negative [facility] Comment on above: CRITICAL VALUE *HCRI TICAL VALUE VERIFIED. CALLED TO CHAO CHAMPION (ER)02/23/22 [address].RESULTS READ BACK BY SAME. Laboratory - Chemistry and C hemistry - challengeOrdered By: Dr. Funes on 02-23-2022 CO2 [Moles/Vol] 32.0 mmol/L 21.0-32.0 [facility] Urea nitrogen/Creatinine [Mass ratio] 17.1 mg/mg 10-20 [facility] Mucus LM Ql (Urine sed)Order ed By: Dr. Funes on 02-23-2022 Mucus Ql (Urine sed) 0 SEEN /hpf [facility] Nitrite Test strip Ql (U)Ord ered By: Dr. Funes on 02-23-2022 Nitrite Ql (U) Negative Negative [facility] No Panel InformationOrdered By: Dr. Funes on 02-23-2022 Estimated Creatinine Clearance Calc 103.88 ml/min [facility] Estimated GFR (MDRD) Amer 112 mL/min >60 [facility] Comment on above: GFR Calc Estimated GFR (MDRD) Non-Af Amer 93 mL/min >60 [facility] Comment on above: Non- GFR Calc Influenza Types A,B Direct FA (AZAM) Influenzae A [facility] Protein Test strip Ql (U)Ord ered By: Dr. Funes on 02-23-2022 Protein Ql (U) 15 mg/dl Negative [facility] Serum or plasma calcium renee urement (mass/volume)Ordered By: Dr. Funes on 02-23-2022 Calcium [Mass/Vol] 8.6 mg/dL 8.5-10.1 [facility] Serum or plasma creatinine m easurement (mass/volume)Ordered By: Dr. Funes on 02-23-2022 Creatinine [Mass/Vol] 0.70 mg/dL 0.55-1.02 [facility] Comment on above: The validity of the calculated GFR & GFRAA in patients over 70 years has not been determined. Clinical correlation is essential. Serum or plasma urea nitroge n measurement (mass/volume)Ordered By: Dr. Funes on 02-23-2022 Urea nitrogen [Mass/Vol] 12 mg/dL 7-18 [facility] Squamous epithelial cells de tection in urine sediment by light microscopyOrdered By: Dr. Funes on 02-23-2022 Epithelial cells.squamous LM Ql (Urine sed) 0-5 SEEN /hpf 5-10 [facility] Thin prep Papanicolaou smear with manual screeningOrdered By: Dr. Funes on 02-23-2022 Thin prep Papanicolaou smear with manual screening 5 5-15 [facility] Urine blood detectionOrdered By: Dr. Funes on 02-23-2022 RBC Ql (U) Negative Negative [facility] RBC Ql (U) 0 SEEN /hpf 0-5 [facility] Urine clarityOrdered By: Dr. Funes on 02-23-2022 Clarity (U) Sl. Cloudy Clear [facility] Urine color determinationOrd ered By: Dr. Funes on 02-23-2022 Color (U) Yellow Yellow [facility] Urine glucose detectionOrder ed By: Dr. Funes on 02-23-2022 Glucose Ql (U) Normal mg/dl Normal [facility] Urine leukocyte esterase det ection by dipstickOrdered By: Dr. Funes on 02-23-2022 Leukocyte esterase Test strip Ql (U) Negative Negative [facility] Urine pHOrdered By: Dr. Syed pelayo on 02-23-2022 pH (U) 6.5 [pH] 5.0 - 8.0 [facility] Urine sediment bacteria coun t by microscopy (number/high power field)Ordered By: Dr. Funes on 02-23-2022 Bacteria LM.HPF (Urine sed) [#/Area] 0 /[HPF] None Seen [facility] Urine specific gravity measu rementOrdered By: Dr. Funes on 02-23-2022 Specific gravity (U) [Rel density] 1.015 1.002-1.030 [facility] Urobilinogen Auto test strip Ql (U)Ordered By: Dr. Funes on 02-23-2022 Urobilinogen Ql (U) Normal mg/dl Normal [facility] Surgical Tissue Examon 06-06 Surgical Tissue Exam Test performed at A [address] [id number]: MARGOT HU [id number] REQUESTING: ROSAMARIA SU M.D.FINAL DIAGNOSIS:LEFT THYROID LOBECTOMY [...] in ten cassettes as follows: 1-8 - senior human resources representative sections ofleft thyroid lobe; 9 - smaller piece of tissue; 10 - smaller piece oftissue with calcification, totally submitted. ATP:vanessa AGUIRRE M.D.(Electronic signature on file)Signed out: 06/11/2017 16:26PRINTED: 06/11/2017 Page 1 of 1 Normal [facility] Comment on above: Performed By: #### S URG ####[place] [address] Urine HCG, Qual.on 8 HCG.beta subunit ( test) Ql (U) Negative Normal Negative [facility] Comment on above: Performed By: #### H CGUR ####[address] [address] Specific [place], Ur 1.013 Normal 1.005-1.030 [facility] Comment on above: Performed By: #### H CGUR ####[address] [address] Calcium Bloodon 05-30-2017 Calcium 9.4 mg/dL Normal 8.5-10.1 [facility] Comment on above: Performed By: #### C A ####[address] [address] BRIEF OP NOTon 02-06-2017 BRIEF OP NOT HNO ID: [id number]: Sarah Johnservice: RadiologyAuthor Type: PhysicianType: Brief Op NoteFiled: 02/06/2017 1:35 PMNote Text:BRIEF OPERATIVE NOTEPatient Name: Margot HuMRN: [id number] ID: [id number] Date: 02/06/2017Surgeon(s) and Com Writer(s):Surgeon(s) and Role: * Sarah Oviedo - PrimaryProcedures and Anesthesia:Procedure(s) and Anesthesia Type: * BIOPSY THYROID - LocalFindings: naEstimated Blood Loss: NoneIntravenous Fluids: NoneCondition: stableSpecimens: 3, 25G FNAPostop Diagnosis: * No post-op diagnosis entered *Signature: ADELAIDE Serranoate: February 06, 2017Time: 1:35 PM [facility] CYTOLOGYon 02-06-2017 [facility]Y [facility]: [id number] Physician: Sarah Oviedo M.D.SPECIMEN SUBMITTEDA: THYROID, LEFT LOBE, FINE NEEDLE ASPIRATE (THINPREP, SMEARS ANDCELLBLOCK) FINAL DIAGNOSISA. THYROID, LEFT LOBE, FINE NEEDLE ASPIRATE (THINPREP, SMEARS ANDCELLBLOCK)Benign.Jenaro gn follicular cells, cyst contents, and colloid.Medina Cr MD (Electronic Signature) CLINI TELMA DATA Dominant NoduleGROSS [id number] cc Slightly Cloudy, jason CytoLyt with particles and 6 Smears STAINSA: THYROID, LEFT LOBE, FINE NEEDLE ASPIRATE (THINPREP, SMEARS ANDCELLBLOCK) SMEARS RECEIVED x 6, THIN PREP Non-Lead Electrician, CELL BLOCK, H&E, InitialPatient ID #: [id number] of Report: 02/12/2017Date of Procedure: 02/06/2017Date of Receipt: 02/06/2017Submitted by: Sarah Oviedo M.D.Location: MERADDiagnostic interpretation performed at [facility], [address] [place] [address]. [facility] Comment on above: Performed By: #### F NTHYL ####[facility] [id number] [place], [place] [phone] US GUIDED NEEDLEon 7 US GUIDED NEEDLE [...] No complications were encountered.IMPRESSION: Left thyroid nodule FNA.Saw Superintendent: JESUS Transcribe Date/Time: Feb 06 2017 3:03PDictated by : SARAH OVIEDO MDThimariposa examination was interpreted and the report reviewed and electronically signed by: SARAH OVIEDO MD on Feb 06 2017 3:04PM [id number] [facility] HOSPon 02-05-2017 HOSP Patient:Rashard Hu [facility] N: Height:5' 10.079(1.78 m)Weight:152 lb 9.6 oz [...] days for the following basenames: K,HCTProgress Notes ([facility]):Emerita Camarillo RN, RN 02/01/2017 2:54 PM SignedLeft voicemail to schedule Thyroid biopsy. Awaiting call back.Progress Notes ([facility]):Emerita Camarillo RN, RN 01/29/2017 4:07 PM SignedPatient called to schedule Thyroid biopsy, awaiting order from Dr Prado. Perpatient, would like for the procedure to be completed here, as there was a longwait for it to be completed in office. Called Dr Prado's nurse, will see aboutgetting an order by tomorrow. Awaiting order before scheduling patient. Normal [facility] COVID-19 virus antigen assay SARS-CoV-2 (COVID-19) Ag IA.rapid Ql (Resp) [facility] Work Phone: No Panel Information Influenza Types A,B Direct FA (AZAM) Influenzae A [facility] Work Phone: [facility] Vital Signs Date Time Vital Sign Value Performing Clinician Facility 11-14-2024 08:08-0400 Body mass index (BMI) [Ratio] 22.17 kg/m2 Tanika Alves DO Work Phone: [facility] 11-14-2024 08:08-0400 Body temperature 97.3 [degF] Tanika Alves DO Work Phone: [facility] 11-14-2024 08:08-0400 Body weight 72.1 kg Tanika Alves DO Work Phone: [facility] 11-14-2024 08:08-0400 Diastolic blood pressure 65 mm[Hg] Tanika Boaudraois DO Work Phone: [facility] 11-14-2024 08:08-0400 Heart rate 69 /min Tanika Krishnanois DO Work Phone: [facility] 11-14-2024 08:08-0400 Systolic blood pressure 115 mm[Hg] Tanika Bourgeois DO Work Phone: [facility] 10-02-2024 08:47-0400 Body mass index (BMI) [Ratio] 21.92 kg/m2 Tanika Bourgeois DO Work Phone: [facility] 10-02-2024 08:47-0400 Body temperature 98.2 [degF] Tanika Bourgeois DO Work Phone: [facility] 10-02-2024 08:47-0400 Body weight 71.3 kg Tanika Alves DO Work Phone: [facility] 10-02-2024 08:47-0400 Diastolic blood pressure 65 mm[Hg] Tanika Bourgeois DO Work Phone: [facility] 10-02-2024 08:47-0400 Heart rate 78 /min Tanika Alves DO Work Phone: [facility] 10-02-2024 08:47-0400 Systolic blood pressure 121 mm[Hg] Tanika Bourgeois DO Work Phone: [facility] 09-29-2024 14:57-0400 Body height 180.[address] Ama Hamilton MD Work Phone: [facility] 09-29-2024 14:53-0400 Body mass index (BMI) [Ratio] 22.3 kg/m2 Dr. Ama Hamilton MD Work Phone: [facility] 09-29-2024 14:53-0400 Body weight 72.[address] Ama Hamilton MD Work Phone: [facility] 09-29-2024 14:53-0400 Diastolic blood pressure 73 mm[Hg] Dr. Ama Hamilton MD Work Phone: [facility] 09-29-2024 14:53-0400 Systolic blood pressure 122 mm[Hg] Dr. Ama Hamilton MD Work Phone: [facility] 08-12-2024 08:11-0400 Body mass index (BMI) [Ratio] 23 kg/m2 Tanika Alves DO Work Phone: [facility] 08-12-2024 08:11-0400 Body temperature 97.9 [degF] Tanika Alves DO Work Phone: [facility] 08-12-2024 08:11-0400 Body weight 74.8 kg Tanika Alves DO Work Phone: [facility] 08-12-2024 08:11-0400 Diastolic blood pressure 70 mm[Hg] Tanika Alves DO Work Phone: [facility] 08-12-2024 08:11-0400 Heart rate 71 /min Tanika Krishnanois DO Work Phone: [facility] 08-12-2024 08:11-0400 Systolic blood pressure 126 mm[Hg] Tanika Krishnanois DO Work Phone: [facility] 07-01-2024 09:10-0400 Body mass index (BMI) [Ratio] 22.69 kg/m2 Tanika Krishnanois DO Work Phone: [facility] 07-01-2024 09:10-0400 Body temperature 96.4 [degF] Tanika Alves DO Work Phone: [facility] 07-01-2024 09:10-0400 Body weight 73.8 kg Tanika Alves DO Work Phone: [facility] 07-01-2024 09:10-0400 Diastolic blood pressure 71 mm[Hg] Tanika Alves DO Work Phone: [facility] 07-01-2024 09:10-0400 Heart rate 66 /min Tanika Alves DO Work Phone: [facility] 07-01-2024 09:10-0400 Systolic blood pressure 115 mm[Hg] Tanika Alves DO Work Phone: [facility] 06-05-2024 17:09-0400 Body height 180.[address] Ama Hamilton MD Work Phone: [facility] 06-05-2024 17:09-0400 Body mass index (BMI) [Ratio] 22.1 kg/m2 Dr. Ama [place] MD Work Phone: [facility] 06-05-2024 17:09-0400 Body temperature 97.9 [degF] Dr. Ama Hamilton MD Work Phone: [facility] 06-05-2024 17:09-0400 Body weight 72.[address] Ama Hamilton MD Work Phone: [facility] 06-05-2024 17:09-0400 Diastolic blood pressure 70 mm[Hg] Dr. Ama Hamilton MD Work Phone: [facility] 06-05-2024 17:09-0400 Heart rate 85 /min Dr. Ama Hamilton MD Work Phone: [facility] 06-05-2024 17:09-0400 Respiratory rate 16 /min Dr. Ama Hamilton MD Work Phone: [facility] 06-05-2024 17:09-0400 SaO2% (BldA) [Mass fraction] 99 % Dr. Ama Hamilton MD Work Phone: [facility] 06-05-2024 17:09-0400 Systolic blood pressure 110 mm[Hg] Dr. Ama Hamilton MD Work Phone: [facility] 05-27-2024 09:57-0500 Body mass index (BMI) [Ratio] 22.38 kg/m2 Rosamaria Clutter PA-C Work Phone: [facility] 05-27-2024 09:57-0500 Body temperature 97.81 [degF] Rosamaria Clutter PA-C Work Phone: [facility] 05-27-2024 09:57-0500 Body weight 72.8 kg Rosamaria Clutter PA-C Work Phone: [facility] 05-27-2024 09:57-0500 Diastolic blood pressure 82 mm[Hg] Rosamaria Clutter PA-C Work Phone: [facility] 05-27-2024 09:57-0500 Heart rate 73 /min Rosamaria Clutter PA-C Work Phone: [facility] 05-27-2024 09:57-0500 Respiratory rate 18 /min Rosamaria Clutter PA-C Work Phone: [facility] 05-27-2024 09:57-0500 SaO2% (BldA) [Mass fraction] 98 % Rosamaria Clutter PA-C Work Phone: [facility] 05-27-2024 09:57-0500 Systolic blood pressure 124 mm[Hg] Rosamaria Clutter PA-C Work Phone: [facility] 04-09-2024 15:57-0500 Body mass index (BMI) [Ratio] 22.81 kg/m2 Tanika Alves DO Work Phone: [facility] 04-09-2024 15:57-0500 Body temperature 97.3 [degF] Tanika Alves DO Work Phone: [facility] 04-09-2024 15:57-0500 Body weight 74.2 kg Tanika Alves DO Work Phone: [facility] 04-09-2024 15:57-0500 Diastolic blood pressure 72 mm[Hg] Tanika Alves DO Work Phone: [facility] 04-09-2024 15:57-0500 Heart rate 64 /min Tanika Alvse DO Work Phone: [facility] 04-09-2024 15:57-0500 Systolic blood pressure 112 mm[Hg] Tanika Alves DO Work Phone: [facility] 03-05-2024 07:28-0500 Body mass index (BMI) [Ratio] 22.4 kg/m2 Dr. Ama Hamilton MD Work Phone: [facility] 03-05-2024 07:28-0500 Body temperature 97.5 [degF] Dr. Ama Hamilton MD Work Phone: [facility] 03-05-2024 07:28-0500 Body weight 73.[address] Ama Hamilton MD Work Phone: [facility] 03-05-2024 07:28-0500 Diastolic blood pressure 64 mm[Hg] Dr. Ama Hamilton MD Work Phone: [facility] 03-05-2024 07:28-0500 Heart rate 77 /min Dr. Ama Hamilton MD Work Phone: [facility] 03-05-2024 07:28-0500 Respiratory rate 14 /min Dr. Ama Hamilton MD Work Phone: [facility] 03-05-2024 07:28-0500 SaO2% (BldA) [Mass fraction] 97 % Dr. Ama Hamilton MD Work Phone: [facility] 03-05-2024 07:28-0500 Systolic blood pressure 110 mm[Hg] Dr. Ama Hamilton MD Work Phone: [facility] 02-15-2024 08:03-0500 Body mass index (BMI) [Ratio] 22.35 kg/m2 Tanika Alves DO Work Phone: [facility] 02-15-2024 08:03-0500 Body temperature 96.8 [degF] Tanika Alves DO Work Phone: [facility] 02-15-2024 08:03-0500 Body weight 72.7 kg Tanika Bourgeois DO Work Phone: [facility] 02-15-2024 08:03-0500 Diastolic blood pressure 71 mm[Hg] Tanika Bourgeois DO Work Phone: [facility] 02-15-2024 08:03-0500 Heart rate 77 /min Tanika Bourgeois DO Work Phone: [facility] 02-15-2024 08:03-0500 Respiratory rate 16 /min Tanika Bourgeois DO Work Phone: [facility] 02-15-2024 08:03-0500 Systolic blood pressure 114 mm[Hg] Tanika Bourgeois DO Work Phone: [facility] 01-03-2024 09:00-0400 Body mass index (BMI) [Ratio] 22.35 kg/m2 Tanika Bourgeois DO Work Phone: [facility] 01-03-2024 09:00-0400 Body temperature 96.1 [degF] Tanika Bourgeois DO Work Phone: [facility] 01-03-2024 09:00-0400 Body weight 72.7 kg Tanika Bourgeois DO Work Phone: [facility] 01-03-2024 09:00-0400 Diastolic blood pressure 67 mm[Hg] Tanika Bourgeois DO Work Phone: [facility] 01-03-2024 09:00-0400 Heart rate 62 /min Tanika Bourgeois DO Work Phone: [facility] 01-03-2024 09:00-0400 Systolic blood pressure 111 mm[Hg] Tanika Bourgeois DO Work Phone: [facility] 12-07-2023 09:27-0400 Body height 180.3 cm Easton Parker MD Work Phone: [facility] 12-07-2023 09:27-0400 Body mass index (BMI) [Ratio] 21.9 kg/m2 Easton Parker MD Work Phone: [facility] 12-07-2023 09:27-0400 Body weight 71.22 kg Easton Parker MD Work Phone: [facility] 12-07-2023 09:27-0400 Respiratory rate 16 /min Easton Parker MD Work Phone: [facility] 12-03-2023 08:57-0400 Body mass index (BMI) [Ratio] 22.75 kg/m2 Tanika Krishnanois DO Work Phone: [facility] 12-03-2023 08:57-0400 Body temperature 96.8 [degF] Tanika Carrurgeois DO Work Phone: [facility] 12-03-2023 08:57-0400 Body weight 74 kg Tanika Krishnanois DO Work Phone: [facility] 12-03-2023 08:57-0400 Diastolic blood pressure 66 mm[Hg] Tanika Carrurgeois DO Work Phone: [facility] 12-03-2023 08:57-0400 Heart rate 61 /min Tanika Carrurgeois DO Work Phone: [facility] 12-03-2023 08:57-0400 Systolic blood pressure 106 mm[Hg] Tanika Carrurgeois DO Work Phone: [facility] 11-15-2023 09:03-0400 Body mass index (BMI) [Ratio] 22.14 kg/m2 Tanika Carrurgeois DO Work Phone: [facility] 11-15-2023 09:03-0400 Body temperature 97.7 [degF] Tanika Carrurgeois DO Work Phone: [facility] 11-15-2023 09:03-0400 Body weight 72 kg Tanika Krishnanois DO Work Phone: [facility] 11-15-2023 09:03-0400 Diastolic blood pressure 67 mm[Hg] Tanika Carrurgeois DO Work Phone: [facility] 11-15-2023 09:03-0400 Heart rate 73 /min Tanika Alves DO Work Phone: [facility] 11-15-2023 09:03-0400 Systolic blood pressure 105 mm[Hg] Tanika Alves DO Work Phone: [facility] 11-02-2023 08:44-0400 Body height 180.3 cm Easton Parker MD Work Phone: [facility] 11-02-2023 08:44-0400 Body mass index (BMI) [Ratio] 22.04 kg/m2 Easton Parker MD Work Phone: [facility] 11-02-2023 08:44-0400 Body weight 71.67 kg Easton Parker MD Work Phone: [facility] 10-26-2023 09:56-0400 Body height 180.3 cm Easton Parker MD Work Phone: [facility] 10-26-2023 09:56-0400 Body mass index (BMI) [Ratio] 21.62 kg/m2 Easton Parker MD Work Phone: [facility] 10-26-2023 09:56-0400 Body temperature 98.2 [degF] Easton Parker MD Work Phone: [facility] 10-26-2023 09:56-0400 Body weight 70.31 kg Easton Parker MD Work Phone: [facility] 10-25-2023 10:46-0400 Body mass index (BMI) [Ratio] 22.14 kg/m2 Antonio Vivar APRN.WELFARE OFFICER Work Phone: [facility] 10-25-2023 10:46-0400 Body temperature 98.4 [degF] Antonio Vivar APRN.WELFARE OFFICER Work Phone: [facility] 10-25-2023 10:46-0400 Body weight 72 kg Antonio Vivar APRN.WELFARE OFFICER Work Phone: [facility] 10-25-2023 10:46-0400 Diastolic blood pressure 86 mm[Hg] Antonio Vivar ARMATURE VARNISHER.WELFARE OFFICER Work Phone: [facility] 10-25-2023 10:46-0400 Heart rate 69 /min Antonio King ARMATURE VARNISHER.WELFARE OFFICER Work Phone: [facility] 10-25-2023 10:46-0400 Respiratory rate 18 /min Antonio Vivar ARMATURE VARNISHER.WELFARE OFFICER Work Phone: [facility] 10-25-2023 10:46-0400 SaO2% (BldA) [Mass fraction] 100 % Antonio Vivar ARMATURE VARNISHER.WELFARE OFFICER Work Phone: [facility] 10-25-2023 10:46-0400 Systolic blood pressure 127 mm[Hg] Antonio Vivar ARMATURE VARNISHER.WELFARE OFFICER Work Phone: [facility] 10-02-2023 08:29-0400 Body mass index (BMI) [Ratio] 22.17 kg/m2 Tanika Alves DO Work Phone: [facility] 10-02-2023 08:29-0400 Body temperature 97.59 [degF] Tanika Alves DO Work Phone: [facility] 10-02-2023 08:29-0400 Body weight 72.1 kg Tanika Alves DO Work Phone: [facility] 10-02-2023 08:29-0400 Diastolic blood pressure 63 mm[Hg] Tanika Alves DO Work Phone: [facility] 10-02-2023 08:29-0400 Heart rate 70 /min Tanika Alves DO Work Phone: [facility] 10-02-2023 08:29-0400 Systolic blood pressure 105 mm[Hg] Tanika Krishnanois DO Work Phone: [facility] 07-30-2023 11:59-0400 Body height 180.[address] Ama Hamilton Work Phone: [facility] 07-30-2023 11:59-0400 Body mass index (BMI) [Ratio] 22.1 kg/m2 Dr. Ama Hamilton Work Phone: [facility] 07-30-2023 11:59-0400 Body weight 72.[address] Ama Hamilton Work Phone: [facility] 07-30-2023 11:59-0400 Diastolic blood pressure 72 mm[Hg] Dr. Ama Hamilton Work Phone: [facility] 07-30-2023 11:59-0400 Systolic blood pressure 110 mm[Hg] Dr. Ama Hamilton Work Phone: [facility] 07-25-2023 08:26-0400 Body mass index (BMI) [Ratio] 22.59 kg/m2 Tanika Alves DO Work Phone: [facility] 07-25-2023 08:26-0400 Body temperature 96.6 [degF] Tanika Alves DO Work Phone: [facility] 07-25-2023 08:26-0400 Body weight 73.48 kg Tanika Alves DO Work Phone: [facility] 07-25-2023 08:26-0400 Diastolic blood pressure 66 mm[Hg] Tanika Alves DO Work Phone: [facility] 07-25-2023 08:26-0400 Heart rate 61 /min Tanika Alves DO Work Phone: [facility] 07-25-2023 08:26-0400 Systolic blood pressure 123 mm[Hg] Tanika Alves DO Work Phone: [facility] 06-06-2023 17:04-0400 Body height 180.[address] Ama Hamilton Work Phone: [facility] 06-06-2023 17:04-0400 Body mass index (BMI) [Ratio] 22.4 kg/m2 Dr. Ama Hamilton Work Phone: [facility] 06-06-2023 17:04-0400 Body temperature 98.9 [degF] Dr. Ama Hamilton Work Phone: [facility] 06-06-2023 17:04-0400 Body weight 73.[address] Ama Hamilton Work Phone: [facility] 06-06-2023 17:04-0400 Diastolic blood pressure 70 mm[Hg] Dr. Ama Hamilton Work Phone: [facility] 06-06-2023 17:04-0400 Heart rate 54 /min Dr. Ama Hamilton Work Phone: [facility] 06-06-2023 17:04-0400 Respiratory rate 16 /min Dr. Ama Hamilton Work Phone: [facility] 06-06-2023 17:04-0400 SaO2% (BldA) [Mass fraction] 99 % Dr. Ama Hamilton Work Phone: [facility] 06-06-2023 17:04-0400 Systolic blood pressure 110 mm[Hg] Dr. Ama Hamilton Work Phone: [facility] 05-16-2023 09:30-0500 Body temperature 97.2 [degF] Tanika Alves DO Work Phone: [facility] 05-16-2023 09:30-0500 Body weight 72.12 kg Tanika Alves DO Work Phone: [facility] 05-16-2023 09:30-0500 Diastolic blood pressure 68 mm[Hg] Tanika Alves DO Work Phone: [facility] 05-16-2023 09:30-0500 Heart rate 65 /min Tanika Alves DO Work Phone: [facility] 05-16-2023 09:30-0500 Respiratory rate 18 /min Tanika Alves DO Work Phone: [facility] 05-16-2023 09:30-0500 Systolic blood pressure 108 mm[Hg] Tanika Bourgeois DO Work Phone: [facility] 03-06-2023 11:34-0500 Body temperature 97 [degF] Tanika Bourgeois DO Work Phone: [facility] 03-06-2023 11:34-0500 Body weight 72.12 kg Tanika Bourgeois DO Work Phone: [facility] 03-06-2023 11:34-0500 Diastolic blood pressure 80 mm[Hg] Tanika Bourgeois DO Work Phone: [facility] 03-06-2023 11:34-0500 Heart rate 73 /min Tanika Bourgeois DO Work Phone: [facility] 03-06-2023 11:34-0500 Respiratory rate 17 /min Tanika Bourgeois DO Work Phone: [facility] 03-06-2023 11:34-0500 Systolic blood pressure 121 mm[Hg] Tanika Bourgeois DO Work Phone: [facility] 01-24-2023 10:55-0400 Body weight 71.22 kg Tanika Carrurgeois DO Work Phone: [facility] 01-24-2023 10:55-0400 Diastolic blood pressure 70 mm[Hg] Tanika Bourgeois DO Work Phone: [facility] 01-24-2023 10:55-0400 Heart rate 67 /min Tanika Bourgeois DO Work Phone: [facility] 01-24-2023 10:55-0400 Respiratory rate 12 /min Tanika Bourgeois DO Work Phone: [facility] 01-24-2023 10:55-0400 Systolic blood pressure 105 mm[Hg] Tanika Bourgeois DO Work Phone: [facility] 01-01-2023 14:03-0400 Body temperature 97.5 [degF] Tanika Bourgeois DO Work Phone: [facility] 01-01-2023 14:03-0400 Body weight 71.22 kg Tanika Bourgeois DO Work Phone: [facility] 01-01-2023 14:03-0400 Diastolic blood pressure 69 mm[Hg] Tanika Bourgeois DO Work Phone: [facility] 01-01-2023 14:03-0400 Heart rate 62 /min Tanika Bourgeois DO Work Phone: [facility] 01-01-2023 14:03-0400 Systolic blood pressure 127 mm[Hg] Tanika Bourgeois DO Work Phone: [facility] 11-03-2022 08:43-0400 Body temperature 96.91 [degF] Tanika Bourgeois DO Work Phone: [facility] 11-03-2022 08:43-0400 Body weight 71.67 kg Tanika Bourgeois DO Work Phone: [facility] 11-03-2022 08:43-0400 Diastolic blood pressure 65 mm[Hg] Tanika Bourgeois DO Work Phone: [facility] 11-03-2022 08:43-0400 Heart rate 75 /min Tanika Bourgeois DO Work Phone: [facility] 11-03-2022 08:43-0400 Respiratory rate 17 /min Tanika Bourgeois DO Work Phone: [facility] 11-03-2022 08:43-0400 Systolic blood pressure 107 mm[Hg] Tanika Bourgeois DO Work Phone: [facility] 09-13-2022 16:59-0400 Body height 180.[address] Ama Hamilton Work Phone: [facility] 09-13-2022 16:59-0400 Body mass index (BMI) [Ratio] 21.9 kg/m2 Dr. Ama Hamilton Work Phone: [facility] 09-13-2022 16:59-0400 Body temperature 98.2 [degF] Dr. Ama Hmailton Work Phone: [facility] 09-13-2022 16:59-0400 Body weight 71.[address] Ama Hamilton Work Phone: [facility] 09-13-2022 16:59-0400 Diastolic blood pressure 70 mm[Hg] Dr. Ama Hamilton Work Phone: [facility] 09-13-2022 16:59-0400 Heart rate 65 /min Dr. Ama Hamilton Work Phone: [facility] 09-13-2022 16:59-0400 Respiratory rate 14 /min Dr. Ama Hamilton Work Phone: [facility] 09-13-2022 16:59-0400 SaO2% (BldA) [Mass fraction] 99 % Dr. Ama Hamilton Work Phone: [facility] 09-13-2022 16:59-0400 Systolic blood pressure 106 mm[Hg] Dr. Ama Hamilton Work Phone: [facility] 07-27-2022 15:18-0400 Body height 180.[address] Ama Hamilton Work Phone: [facility] 07-27-2022 15:18-0400 Body mass index (BMI) [Ratio] 22.1 kg/m2 Dr. Ama Hamilton Work Phone: [facility] 07-27-2022 15:18-0400 Body weight 71.[address] Ama Hamilton Work Phone: [facility] 07-27-2022 15:18-0400 Diastolic blood pressure 72 mm[Hg] Dr. Ama Hamilton Work Phone: [facility] 07-27-2022 15:18-0400 Systolic blood pressure 115 mm[Hg] Dr. Ama Hamilton Work Phone: [facility] 05-24-2022 16:59-0500 Body height 180.[address] Ama Hamilton Work Phone: [facility] 05-24-2022 16:59-0500 Body mass index (BMI) [Ratio] 22.1 kg/m2 Dr. Ama Hamilton Work Phone: [facility] 05-24-2022 16:59-0500 Body temperature 98.6 [degF] Dr. Ama Hamilton Work Phone: [facility] 05-24-2022 16:59-0500 Body weight 72.[address] Ama Hamilton Work Phone: [facility] 05-24-2022 16:59-0500 Diastolic blood pressure 72 mm[Hg] Dr. Ama Hamilton Work Phone: [facility] 05-24-2022 16:59-0500 Heart rate 72 /min Dr. Ama Hamilton Work Phone: [facility] 05-24-2022 16:59-0500 Respiratory rate 14 /min Dr. Ama Hamilton Work Phone: [facility] 05-24-2022 16:59-0500 SaO2% (BldA) [Mass fraction] 98 % Dr. Ama Hamilton Work Phone: [facility] 05-24-2022 16:59-0500 Systolic blood pressure 104 mm[Hg] Dr. Ama Hamilton Work Phone: [facility] 05-19-2022 08:32-0500 Body height 180.3 cm Maxim Tat DO Work Phone: [facility] 05-19-2022 08:32-0500 Body temperature 97.39 [degF] Maxim Tat DO Work Phone: [facility] 05-19-2022 08:32-0500 Body weight 72.58 kg Maxim Tat DO Work Phone: [facility] 05-19-2022 08:32-0500 Diastolic blood pressure 65 mm[Hg] Maxim Tat DO Work Phone: [facility] 05-19-2022 08:32-0500 Heart rate 64 /min Maxim Tat DO Work Phone: [facility] 05-19-2022 08:32-0500 Systolic blood pressure 102 mm[Hg] Maxim Tat DO Work Phone: [facility] 04-21-2022 15:57-0500 Body height 180.3 cm Tanika Carrabby DO Work Phone: [facility] 04-21-2022 15:57-0500 Body temperature 97.59 [degF] Tanika Krishnanois DO Work Phone: [facility] 04-21-2022 15:57-0500 Body weight 73.48 kg Tanika Brunoaudraois DO Work Phone: [facility] 04-21-2022 15:57-0500 Diastolic blood pressure 56 mm[Hg] Tanika Carrurgeois DO Work Phone: [facility] 04-21-2022 15:57-0500 Heart rate 70 /min Tanika Carraudraois DO Work Phone: [facility] 04-21-2022 15:57-0500 Systolic blood pressure 119 mm[Hg] Tanika Alves DO Work Phone: [facility] 02-27-2022 09:55-0500 Body height 180.[address] Ama Hamilton Work Phone: [facility] 02-27-2022 09:55-0500 Body mass index (BMI) [Ratio] 22.3 kg/m2 Dr. Ama Hamilton Work Phone: [facility] 02-27-2022 09:55-0500 Body temperature 97.1 [degF] Dr. Ama Hamilton Work Phone: [facility] 02-27-2022 09:55-0500 Body weight 72.[address] Ama Hamilton Work Phone: [facility] 02-27-2022 09:55-0500 Diastolic blood pressure 74 mm[Hg] Dr. Ama Hamilton Work Phone: [facility] 02-27-2022 09:55-0500 Heart rate 94 /min Dr. Ama Hamilton Work Phone: [facility] 02-27-2022 09:55-0500 Respiratory rate 16 /min Dr. Ama Hamilton Work Phone: [facility] 02-27-2022 09:55-0500 SaO2% (BldA) [Mass fraction] 98 % Dr. Ama Hamilton Work Phone: [facility] 02-27-2022 09:55-0500 Systolic blood pressure 118 mm[Hg] Dr. Ama Hamilton Work Phone: [facility] 02-23-2022 15:03-0500 Diastolic blood pressure 66 mm[Hg] Dr. Ama Hamilton Work Phone: [facility] 02-23-2022 15:03-0500 Heart rate 79 /min Dr. Ama Hamilton Work Phone: [facility] 02-23-2022 15:03-0500 Respiratory rate 16 /min Dr. Ama Hamilton Work Phone: [facility] 02-23-2022 15:03-0500 SaO2% (BldA) [Mass fraction] 99 % Dr. Ama Hamilton Work Phone: [facility] 02-23-2022 15:03-0500 Systolic blood pressure 117 mm[Hg] Dr. Ama Hamilton Work Phone: [facility] 02-23-2022 09:34-0500 Body height 180.[address] Ama Hamilton Work Phone: [facility] Work Phone: 02-23-2022 09:34-0500 Body mass index (BMI) [Ratio] 22.3 kg/m2 Dr. Ama Hamilton Work Phone: [facility] 02-23-2022 09:34-0500 Body temperature 98.1 [degF] Dr. Ama Hamilton Work Phone: [facility] 02-23-2022 09:34-0500 Body weight 72.[address] Ama Hamilton Work Phone: [facility] 01-06-2022 09:26-0400 Body temperature 97.59 [degF] Maxim Tat DO Work Phone: [facility] 01-06-2022 09:26-0400 Body weight 73.94 kg Maxim Tat DO Work Phone: [facility] 01-06-2022 09:26-0400 Diastolic blood pressure 70 mm[Hg] Maxim Tat DO Work Phone: [facility] 01-06-2022 09:26-0400 Heart rate 70 /min Maxim Tat DO Work Phone: [facility] 01-06-2022 09:26-0400 Respiratory rate 17 /min Maxim Tat DO Work Phone: [facility] 01-06-2022 09:26-0400 Systolic blood pressure 126 mm[Hg] Maxim Tat DO Work Phone: [facility] 12-02-2021 16:49-0400 Body height 179.1 cm Maxim Tat DO Work Phone: [facility] 12-02-2021 16:49-0400 Body temperature 97.3 [degF] Maxim Tat DO Work Phone: [facility] 12-02-2021 16:49-0400 Body weight 73.37 kg Maxim Tat DO Work Phone: [facility] 12-02-2021 16:49-0400 Diastolic blood pressure 65 mm[Hg] Maxim Tat DO Work Phone: [facility] 12-02-2021 16:49-0400 Heart rate 60 /min Maxim Tat DO Work Phone: [facility] 12-02-2021 16:49-0400 Respiratory rate 14 /min Maxim Tat DO Work Phone: [facility] 12-02-2021 16:49-0400 SaO2% (BldA) [Mass fraction] 100 % Maxim Tat DO Work Phone: [facility] 12-02-2021 16:49-0400 Systolic blood pressure 131 mm[Hg] Maxim Tat DO Work Phone: [facility] 10-07-2021 08:58-0400 Body temperature 97.81 [degF] Fili Danyelle DO Work Phone: [facility] 10-07-2021 08:58-0400 Body weight 72.58 kg Fiil Danyelle DO Work Phone: [facility] 10-07-2021 08:58-0400 Diastolic blood pressure 69 mm[Hg] Fili Danyelle DO Work Phone: [facility] 10-07-2021 08:58-0400 Heart rate 76 /min Fili Danyelle DO Work Phone: [facility] 10-07-2021 08:58-0400 Respiratory rate 17 /min Fili Danyelle DO Work Phone: [facility] 10-07-2021 08:58-0400 Systolic blood pressure 112 mm[Hg] Fili Danyelle DO Work Phone: [facility] 09-16-2021 09:09-0400 Body temperature 97.9 [degF] Fili Danyelle DO Work Phone: [facility] 09-16-2021 09:09-0400 Body weight 72.58 kg Fili Danyelle DO Work Phone: [facility] 09-16-2021 09:09-0400 Diastolic blood pressure 86 mm[Hg] Fili Danyelle DO Work Phone: [facility] 09-16-2021 09:09-0400 Heart rate 78 /min Fili Danyelle DO Work Phone: [facility] 09-16-2021 09:09-0400 Respiratory rate 17 /min Fili Danyelle DO Work Phone: [facility] 09-16-2021 09:09-0400 Systolic blood pressure 126 mm[Hg] Fili Danyelle DO Work Phone: [facility] 08-31-2021 08:03-0400 Body height 180.[address] Ama Hamilton Work Phone: [facility] Work Phone: 08-31-2021 08:03-0400 Body mass index (BMI) [Ratio] 22.5 kg/m2 Dr. Ama Hamilton Work Phone: [facility] Work Phone: 08-31-2021 08:03-0400 Body temperature 98.1 [degF] Dr. Ama Hamilton Work Phone: [facility] Work Phone: 08-31-2021 08:03-0400 Body weight 73.[address] Ama Hamilton Work Phone: [facility] Work Phone: 08-31-2021 08:03-0400 Diastolic blood pressure 74 mm[Hg] Dr. Ama Hamilton Work Phone: [facility] Work Phone: 08-31-2021 08:03-0400 Heart rate 56 /min Dr. Ama Hamilton Work Phone: [facility] Work Phone: 08-31-2021 08:03-0400 Respiratory rate 16 /min Dr. Ama Hamilton Work Phone: [facility] Work Phone: 08-31-2021 08:03-0400 SaO2% (BldA) [Mass fraction] 99 % Dr. Ama Hamilton Work Phone: [facility] Work Phone: 08-31-2021 08:03-0400 Systolic blood pressure 118 mm[Hg] Dr. Ama Hamilton Work Phone: [facility] Work Phone: Encounters Encounter Date Encounter Type Care Provider Facility Start: 11-14-2024 End: 11-14-2024 Patient encounter procedure Tanika Alves DO Work Phone: [facility] [facility] Comment on above: Neck pain (Primary D x); Chronic right SI joint pain; Right hip pain; Somatic dysfunction of head region; Somatic dysfunction of cervical region; Somatic dysfunction of thoracic region; Somatic dysfunction of lumbar region; Somatic dysfunction of sacral region; Somatic dysfunction of pelvis region Start: 11-14-2024 End: 11-14-2024 ambulatory [facility] Maty CARRRIGO Facility:[facility] Start: 2024 End: 2024 ambulatory [facility] Facility:[facility] Start: 10-10-2024 End: 10-10-2024 Telephone encounter Easton Wheatley AT Work Phone: [facility] Start: 10-09-2024 End: 10-10-2024 ambulatory Sarah Wynn MD Work Phone: [facility] Start: 10-09-2024 End: 10-10-2024 Follow-up encounter Sarah Wynn MD Work Phone: [facility] Comment on above: Injection follow up Start: 10-02-2024 End: 10-02-2024 Patient encounter procedure Tanika Alves DO Work Phone: [facility] Comment on above: Chronic right SI pillo nt pain (Primary Dx); Right hip pain; Neck pain; Somatic dysfunction of head region; Somatic dysfunction of cervical region; Somatic dysfunction of thoracic region; Somatic dysfunction of sacral region; Somatic dysfunction of pelvis region Start: 10-02-2024 End: 10-02-2024 ambulatory TANIKA ALVES Facility:[facility] Start: 09-29-2024 End: 09-29-[address] Natalya Schaffer DO [facility] Work Phone: Start: 09-29-2024 End: 09-29-[address] Natalya Schaffer DO [facility] Start: 09-29-2024 End: 09-29-[address] Ama Hamilton MD Work Phone: -[facility] Start: 09-17-2024 Encounter for preprocedural laboratory examination Fili Johnson [facility] Start: 09-12-2024 ambulatory AMA Rene lity:[facility] Start: 09-12-2024 End: 09-12-2024 Subsequent hospital visit by physician Xr Arthro/Inject/Aspr Main A21 Radiology Comment on above: Acetabular labrum te ar, right, subsequent encounter [S73.191D] Start: 09-10-2024 End: 09-10-2024 Non-patient / Non-visit Dr. Carmelo Adams MD -[facility] Work Phone: Start: 09-10-2024 End: 09-10-[address] Ama Hamilton MD Work Phone: [facility] Work Phone: Start: 09-10-2024 End: 09-10-[address] Fili Johnson MD -Pulmonary Services/Neurology Work Phone: Start: 09-09-2024 End: 09-09-2024 Patient encounter procedure Sarah Wynn MD Work Phone: [facility] Comment on above: Acetabular labrum te ar, right, subsequent encounter (Primary Dx) Start: 09-09-2024 End: 09-10-2024 ambulatory Sarah Wynn MD Work Phone: [facility] Start: 09-09-2024 End: 09-10-2024 Follow-up encounter Sarah Wynn MD Work Phone: [facility] Comment on above: Injection follow up questions Start: 09-03-2024 ambulatory AMA CARRRIGO Anju lity:[facility] Start: 09-03-2024 End: 09-03-2024 Subsequent hospital visit by physician [employer] [address] Radiology Comment on above: Ischial bursitis of right side [M70.71] Start: 08-13-2024 ambulatory SARAH WYNN Facility: [facility] Start: 08-12-2024 End: 08-12-2024 Patient encounter procedure Tanika Alves DO Work Phone: [facility] [employer] [facility] Comment on above: Chronic right SI pillo nt pain (Primary Dx); Rib pain on left side; Somatic dysfunction of head region; Somatic dysfunction of lumbar region; Somatic dysfunction of sacral region; Somatic dysfunction of pelvis region; Somatic dysfunction of rib; Somatic dysfunction of lower extremity Start: 08-12-2024 End: 08-12-2024 ambulatory TANIKA ALVES Facility:[facility] Start: 07-31-2024 End: 07-31-2024 Telephone encounter Easton Wu Rad[facility] Comment on above: Appointment Start: 07-30-2024 End: 07-30-2024 Patient encounter procedure Sarah Wynn MD Work Phone: [facility] Comment on above: Hamstring tendinitis of right thigh (Primary Dx); Pain of right hip; Ischial bursitis of right side Start: 07-30-2024 End: 07-30-2024 ambulatory SARAH WYNN Facility:[facility] Start: 07-01-2024 End: 07-01-2024 Patient encounter procedure Tanika Alves DO Work Phone: [facility] [employer] [facility] Comment on above: Rib pain on left [...] extremity Start: 07-01-2024 End: 07-01-2024 ambulatory TANIKA Maximilian HARSHADRUDDY Facility:[facility] Start: 06-25-2024 End: 06-25-[address] Ama Hamilton MD Work Phone: [facility] Work Phone: Start: 06-25-2024 End: 06-25-[address] Ama Hamilton MD -Outpatient Breast Imaging Work Phone: Start: 06-25-2024 End: 06-25-2024 [facility] Start: 06-05-2024 Encounter for genera l adult medical examination without abnormal findings [facility] Start: 06-05-2024 End: 06-05-[address] Ama Hamilton MD -[facility] Work Phone: Start: 06-05-2024 End: 06-05-[address] Ama Hamilton MD [facility] Start: 06-05-2024 End: 06-05-2024 ambulatory Ama Hamilton Facility[facility] Start: 06-03-2024 End: 06-03-2024 ambulatory Sarah Wynn MD Work Phone: [facility] Comment on above: hip MRI Start: 06-03-2024 End: 06-03-2024 E-mail encounter from caregiver Sarah Wynn MD Work Phone: [facility] Start: 05-28-2024 End: 05-28-2024 ambulatory SARAH WYNN Facility:[facility] Start: 05-28-2024 End: 05-28-2024 Patient encounter procedure Sarah Wynn MD Work Phone: [facility] Comment on above: Ischial bursitis of right side (Primary Dx) Start: 05-27-2024 End: 07-27-2024 Follow-up encounter Carolyn Smith APRN.CNP Work Phone: [facility] Start: 05-27-2024 End: 05-27-2024 ambulatory ROSAMARIA KINCAID Facility:[facility] Start: 05-27-2024 End: 05-27-2024 Office outpatient new 30 minutes Rosamaria Meléndezrobina PA-C Work Phone: [facility] Comment on above: Influenza (Primary D x); POTS (postural orthostatic tachycardia syndrome) Start: 05-06-2024 End: 05-06-2024 ambulatory SARAH WYNN Facility:[facility] Start: 05-06-2024 End: 05-06-2024 Subsequent hospital visit by physician [address] Radiology Comment on above: Ischial bursitis of right side [M70.71] Start: 04-17-2024 End: 04-17-2024 Telephone encounter Easton Wu Radiology Comment on above: Appointment Start: 04-16-2024 End: 04-16-2024 Patient encounter procedure Sarah Wynn MD Work Phone: [employer] Comment on above: Ischial bursitis of right side (Primary Dx) Start: 04-16-2024 End: 04-16-2024 ambulatory Sarah Wynn MD Work Phone: [employer] Comment on above: Requested informatio n Start: 04-16-2024 End: 04-16-2024 Subsequent hospital visit by physician Geovany [facility] Geraldo Work Phone: Radiology Comment on above: rt hamstring Start: 04-09-2024 End: 04-09-2024 Patient encounter procedure Tanika Alves DO Work Phone: [facility] Comment on above: Ischial bursitis of right side (Primary Dx); Finger pain, right; Somatic dysfunction of head region; Somatic dysfunction of cervical region; Somatic dysfunction of thoracic region; Somatic dysfunction of lumbar region; Somatic dysfunction of sacral region; Somatic dysfunction of pelvis region; Somatic dysfunction of upper extremity; Somatic dysfunction of lower extremity Start: 04-09-2024 End: 04-09-2024 ambulatory [facility] Facility:[facility] Start: 04-01-2024 End: 04-01-2024 Orders Only Sarah Wynn MD Work Phone: [facility]oint[facility] Comment on above: Pain (Primary Dx) Start: 03-05-2024 End: 03-05-2024 Patient encounter procedure Nico GAXIOLA -[facility] Work Phone: Start: 03-05-2024 End: 03-05-2024 [facility] Start: 02-15-2024 End: 02-15-2024 Patient encounter procedure Tanika Alves DO Work Phone: [facility] [employer] Comment on above: Ischial bursitis of right side (Primary Dx); Chronic right SI joint pain; Finger pain, right; Somatic dysfunction of cervical region; Somatic dysfunction of thoracic region; Somatic dysfunction of lumbar region; Somatic dysfunction of sacral region; Somatic dysfunction of pelvis region; Somatic dysfunction of upper extremity Start: 02-15-2024 End: 02-15-2024 [facility] Facility:[facility] Start: 02-14-2024 End: 02-14-2024 ambulatory Tanika Alves DO Work Phone: [employer] [facility] [employer] Comment on above: Parking Alert Notice [facility] Start: 02-14-2024 End: 02-14-2024 E-mail encounter from caregiver Tanika Alves DO Work Phone: [facility] [employer] Start: 01-03-2024 End: 01-03-2024 Patient encounter procedure Tanika Alves DO Work Phone: [facility] [employer] Comment on above: Chronic right SI pillo [...] of rib Start: 01-03-2024 End: 01-03-2024 ambulatory [facility] Facility:[facility] Start: 12-07-2023 End: 12-07-2023 Patient encounter procedure Easton Parker MD Work Phone: [facility] Comment on above: Puncture wound of ri ght hand with foreign body, subsequent encounter (Primary Dx) Start: 12-07-2023 End: 12-07-2023 ambulatory EASTON PARKER Facility:[facility] Start: 12-03-2023 End: 12-03-2023 Patient encounter procedure Tanika Alves DO Work Phone: [facility] Comment on above: Finger pain, right ( Primary Dx); Chronic right SI joint pain; Somatic dysfunction of head region; Somatic dysfunction of cervical region; Somatic dysfunction of thoracic region; Somatic dysfunction of lumbar region; Somatic dysfunction of sacral region; Somatic dysfunction of pelvis region; Somatic dysfunction of upper extremity Start: 12-03-2023 End: 12-03-2023 [facility] Facility:[facility] Start: 11-21-2023 End: 11-21-2023 ambulatory [facility] Facility[facility] Start: 11-19-2023 Encounter for other preprocedural examination [facility] Start: 11-15-2023 End: 11-15-2023 Patient encounter procedure Tanika Alves DO Work Phone: [facility] Comment on above: Chronic right SI pillo nt pain (Primary Dx); Tendinopathy of gluteus medius; Right hand pain; Somatic dysfunction of cervical region; Somatic dysfunction of thoracic region; Somatic dysfunction of lumbar region; Somatic dysfunction of sacral region; Somatic dysfunction of pelvis region; Somatic dysfunction of upper extremity Start: 11-06-2023 ambulatory [facility] ty:[facility] Start: 11-06-2023 End: 11-06-2023 ambulatory [facility] Start: 11-02-2023 End: 11-02-2023 Patient encounter procedure Easton Parker MD Work Phone: [facility] Comment on above: Puncture wound of ri ght hand with foreign body, subsequent encounter (Primary Dx) Start: 11-02-2023 End: 11-02-2023 ambulatory EASTON PARKER Facility:[facility] Start: 10-29-2023 End: 10-29-2023 ambulatory Ama Hamilton Facility:[facility] Start: 10-26-2023 End: 10-26-2023 Patient encounter procedure Easton Parker MD Work Phone: [facility] Comment on above: Puncture wound of ri ght hand with foreign body, initial encounter (Primary Dx); Injury of right hand, initial encounter Start: 10-26-2023 End: 10-26-2023 ambulatory EASTON PARKER Facility:[facility] Start: 10-25-2023 Telephone encounter Ag Orth Work Phone: [facility] Comment on above: ER F/U ([facility] 10/24 W/C ) Start: 10-25-2023 End: 10-25-2023 Subsequent hospital visit by physician Geovany [facility] Work Phone: Radiology Comment on above: Injury of right hand , initial encounter [S69.91XA] Start: 10-25-2023 End: 10-25-2023 Patient encounter procedure Antonio Vivar APRN.CNP Work Phone: [facility] Comment on above: Foreign body of righ t hand, initial encounter (Primary Dx); Injury of right hand, initial encounter; Need for tetanus booster Start: 10-02-2023 End: 10-02-2023 Patient encounter procedure Tanika Alves DO Work Phone: [facility] Comment on above: Finger pain, right ( Primary Dx); It band syndrome, right; Chronic pain of left knee; Neck pain; Somatic dysfunction of head region; Somatic dysfunction of cervical region; Somatic dysfunction of thoracic region; Somatic dysfunction of lumbar region; Somatic dysfunction of pelvis region; Somatic dysfunction of lower extremity; Somatic dysfunction of upper extremity Start: 07-30-2023 End: 07-30-[address] Ama Hamilton Work Phone: [facility] Work Phone: Start: 07-30-2023 End: 07-30-[address] Ama Hamilton Work Phone: [facility]-Laboratory, Specimen Work Phone: Start: 07-30-2023 End: 07-30-[address] Ama Hamilton Work Phone: [facility] Work Phone: Start: 07-25-2023 End: 07-25-2023 Patient encounter procedure Tanika Alves DO Work Phone: [facility] Comment on above: Chronic right SI pillo nt pain (Primary Dx); Neck pain; Somatic dysfunction of head region; Somatic dysfunction of cervical region; Somatic dysfunction of thoracic region; Somatic dysfunction of lumbar region; Somatic dysfunction of sacral region; Somatic dysfunction of pelvis region; Somatic dysfunction of lower extremity Start: 06-11-2023 End: 06-11-[address] Ama Hamilton Work Phone: [facility] Work Phone: Start: 06-11-2023 End: 06-11-[address] Ama Hamilton Work Phone: [facility]-Physical Therapy Work Phone: Start: 06-06-[address] Ama Hamilton Work Phone: [facility] Start: 06-06-2023 End: 06-06-2023 Encounter for general adult medical examination without abnormal findings Dr. Ama Hamilton Work Phone: [facility] Start: 06-06-2023 End: 06-06-[address] Ama Hamilton Work Phone: [facility] Work Phone: Start: 05-16-2023 End: 05-16-2023 Patient encounter procedure Tanika Alves DO Work Phone: [employer] Comment on above: Neck pain (Primary D x); Tendinopathy of gluteus medius; It band syndrome, right; Left arm pain; Somatic dysfunction of cervical region; Somatic dysfunction of thoracic region; Somatic dysfunction of lumbar region; Somatic dysfunction of sacral region; Somatic dysfunction of pelvis region; Somatic dysfunction of lower extremity; Somatic dysfunction of upper extremity Start: 03-06-2023 End: 03-06-2023 Patient encounter procedure Tanika Alves [employer] Phone: [employer] Comment on above: Tendinopathy of glut eus medius (Primary Dx); Chronic right SI joint pain; Somatic dysfunction of thoracic region; Somatic dysfunction of lumbar region; Somatic dysfunction of sacral region; Somatic dysfunction of pelvis region; Somatic dysfunction of lower extremity Start: 01-24-2023 End: 01-24-2023 Patient encounter procedure Tanika Alves DO Work Phone: [employer] Comment on above: Chronic right should er pain (Primary Dx); Chronic right SI joint pain; Somatic dysfunction of head region; Somatic dysfunction of thoracic region; Somatic dysfunction of lumbar region; Somatic dysfunction of sacral region; Somatic dysfunction of pelvis region; Somatic dysfunction of upper extremity Start: 01-01-2023 End: 01-01-2023 Patient encounter procedure Tanika Alves DO [employer] Phone: [employer] Comment on above: Neck pain (Primary D x); Chronic right SI joint pain; Chronic right shoulder pain; Somatic dysfunction of head region; Somatic dysfunction of cervical region; Somatic dysfunction of thoracic region; Somatic dysfunction of lumbar region; Somatic dysfunction of sacral region; Somatic dysfunction of upper extremity; Somatic dysfunction of rib Start: 11-03-2022 End: 11-03-2022 Patient encounter procedure Tanika Alves DO [employer] Phone: [employer] Comment on above: Neck pain (Primary D [...] 10-23-[address] Ama Hamilton Work Phone: [facility] Work Phone: Start: 10-23-2022 End: 10-23-[address] Ama Hamilton Work Phone: [facility]-Laboratory, BIM Start: 09-13-2022 End: 09-13-[address] Ama Hamilton Work Phone: [facility] Internal Medicine Work Phone: Start: 08-03-2022 End: 08-03-[address] Ama Hamilton Work Phone: [facility] Work Phone: Start: 08-03-2022 End: 08-03-[address] Ama Hamilton Work Phone: [facility]-Outpatient Breast Imaging Start: 07-27-2022 End: 07-27-[address] Ama Hamilton Work Phone: [facility] Start: 05-24-2022 End: 05-24-[address] Ama Hamilton Work Phone: [facility] Start: 05-19-2022 End: 05-19-2022 Office outpatient visit 25 minutes Maxim Tat DO Work Phone: [facility] Comment on above: Chronic left SI [...] encounter procedure Dr. Ama Hamilton Work Phone: [facility] Start: 05-03-2022 End: 05-03-[address] Ama Hamilton Work Phone: [facility] Work Phone: Start: 05-03-2022 End: 05-03-[address] Ama Hamilton Work Phone: [facility] Start: 05-01-2022 End: 05-01-[address] Ama Hamilton Work Phone: [facility] Work Phone: Start: 05-01-2022 End: 05-01-[address] Ama Hamilton Work Phone: [facility]-Physical Therapy Start: 05-01-[address] Baltazar Hamilton Work Phone: [facility] Start: 04-21-2022 End: 04-21-2022 Office outpatient visit 25 minutes Tanika Alves DO Work Phone: [facility] Comment on above: Sacroiliac pain (Acacia kira Dx); Right knee pain, unspecified chronicity; Pes anserine bursitis; Neck pain; Somatic dysfunction of head region; Somatic dysfunction of cervical region; Somatic dysfunction of lumbar region; Somatic dysfunction of sacral region; Somatic dysfunction of pelvis region; Somatic dysfunction of lower extremity Start: 04-19-2022 End: 04-19-[address] Ama Hamilton Work Phone: [facility] Start: 03-08-[address] Baltazar Hamilton [facility] Start: 02-27-2022 End: 02-27-[address] Ama Hamilton Work Phone: [facility] Work Phone: Start: 02-27-2022 End: 02-27-[address] Ama Hamilton Work Phone: [facility]-Laboratory, Specimen Start: 02-27-2022 End: 02-27-[address] Ama Hamilton Work Phone: [facility] Start: 02-23-2022 End: 02-23-2022 Emergency department patient visit Dr. Ama Hamilton Work Phone: [facility]-Emergency Department Start: 02-17-2022 End: 02-17-[address] Ama Hamilton Work Phone: [facility] Start: 02-09-[address] Baltazar Hamilton Work Phone: [facility]-Physical Therapy Start: 01-06-2022 End: 01-06-2022 Office outpatient visit 25 minutes Maxim Tat DO Work Phone: [employer] Comment on above: Right knee pain, uns pecified chronicity (Primary Dx); Pes anserine bursitis; Sacroiliac pain; Somatic dysfunction of sacral region; Somatic dysfunction of pelvis region; Somatic dysfunction of lower extremity; Somatic dysfunction of lumbar region Start: 12-02-2021 End: 12-02-2021 Office outpatient visit 15 minutes Maxim Tat DO Work Phone: [employer] Comment on above: Sacroiliac pain (Acacia kira Dx); Acute pain of right knee; Neck pain; Somatic dysfunction of head region; Somatic dysfunction of cervical region; Somatic dysfunction of thoracic region; Somatic dysfunction of sacral region; Somatic dysfunction of pelvis region; Somatic dysfunction of rib; Somatic dysfunction of lumbar region Start: 11-12-2021 End: 11-23-[address] Ama Hamilton Work Phone: [facility] Work Phone: Start: 11-12-2021 End: 11-23-[address] Ama Hamilton Work Phone: [facility] Start: 10-07-2021 End: 10-07-2021 Patient encounter procedure Fili Bassett DO Work Phone: [facility] Comment on above: Acute bilateral low back pain without sciatica (Primary Dx); SI (sacroiliac) joint dysfunction; Somatic dysfunction of lumbar region; Somatic dysfunction of pelvis region; Somatic dysfunction of lower extremity; Somatic dysfunction of abdominal region; Somatic dysfunction of rib region Start: 09-16-2021 End: 09-16-2021 Patient encounter procedure Fili Handyroot Work Phone: [facility] Comment on above: SI (sacroiliac) join t dysfunction (Primary Dx); Somatic dysfunction of spine, cervical; Somatic dysfunction of thoracic region; Somatic dysfunction of lumbar region; Somatic dysfunction of sacral region; Somatic dysfunction of pelvis region; Somatic dysfunction of lower extremity Start: 08-31-2021 End: 08-31-[address] Ama Hamilton Work Phone: [facility] Start: 06-24-2018 Patient encounter procedure [facility] Start: 04-18-[address] Ama Hamilton Work Phone: [facility] Start: 06-14-2017 End: 06-14-2017 Ambulatory [facility] Facility:[facility] Start: 06-06-2017 End: 06-07-2017 Evaluation and management of inpatient [facility] Facility:[facility] Start: 05-29-2017 End: 05-30-2017 Ambulatory [facility] Facility:[facility] Start: 05-10-2017 End: 05-10-2017 Ambulatory ROSAMARIA SU Facility:[facility] Start: 02-06-2017 End: 02-06-2017 Ambulatory [facility] Procedures Date Procedure Procedure Detail Performing Clinician Start: 11-14-2024 Osteopathic manipula tive tx 5-6 body regions Tanika Alves DO Work Phone: Start: 10-02-2024 Osteopathic manipula tive tx 5-6 body regions Tanika Alves DO Work Phone: Start: 09-12-2024 Arthrocentesis aspir &/inj major jt/bursa w/us Sarah Wynn MD Work Phone: Start: 09-03-2024 Us compl joint r-t w /image documentation Sarah Wynn MD Work Phone: Start: 08-12-2024 Osteopathic manipula tive tx 5-6 body regions Tanika Long DO Work Phone: Start: 07-01-2024 Osteopathic manipula tive tx 7-8 body regions Tanika Alves DO Work Phone: Start: 06-25-2024 Bilateral mammography Luis Hamilton MD Work Phone: Start: 06-25-[address] Ama Hamilton MD Work Phone: Start: 05-06-2024 Arthrocentesis aspir &/inj major jt/bursa w/us Sarah Wynn MD Work Phone: Start: 04-16-2024 Radex hip unilateral with pelvis 2-3 views Sarah Wynn MD Work Phone: Start: 04-09-2024 Osteopathic manipula tive tx 7-8 body regions Tanika Alves DO Work Phone: Start: 02-15-2024 Osteopathic manipula tive tx 5-6 body regions Tanika Brunoaudraruddy DO Work Phone: Start: 01-03-2024 Osteopathic manipula tive tx 7-8 body regions Tanika Alves DO Work Phone: Start: 01-03-2024 Mengcao COVI D-19 VACCINE AGE 12+ YR (COMIRNATY) Tanika Alves DO Work Phone: Start: 12-03-2023 Osteopathic manipula tive tx 5-6 body regions Tanika Alves DO Work Phone: Start: 11-15-2023 Osteopathic manipula tive tx 5-6 body regions Tanika Alves DO Work Phone: Start: 10-25-2023 Radex hand minimum 3 views Antonio King TERRAWELFARE OFFICER Work Phone: Start: 10-02-2023 Osteopathic manipula tive tx 7-8 body regions Tanika Alves DO Work Phone: Start: 07-25-2023 Osteopathic manipula tive tx 7-8 body regions Tanika Alves DO Work Phone: Start: 05-16-2023 Osteopathic manipula tive tx 7-8 body regions Tanika Alves DO Work Phone: Start: 03-06-2023 Osteopathic manipula tive tx 5-6 body regions Tanika Alves DO Work Phone: Start: 01-24-2023 Osteopathic manipula tive tx 5-6 body regions Tanika Alves DO Work Phone: Start: 01-01-2023 Osteopathic manipula tive tx 7-8 body regions Tanika Alves DO Work Phone: Start: 08-03-2022 Screening mammography D r. Ama Hamilton Work Phone: Start: 05-03-2022 MRI of [...] DTaP,Tdap,Td Vaccine (2 - Td or Tdap) [facility] Start: 05-28-2027 Diabetes Screening Diabetes Screenin g [facility] Start: 03-24-2025 End: 03-24-2025 Patient encounter procedure 03/24/2025 11:15 AM EST Office Visit [facility] [address] [place], [place] [phone] Sarah Wynn MD [address] [place] [address] [facility] Comment on above: RIGHT HIP Start: 02-13-2025 End: 02-13-2025 ambulatory 02/13/2025 1:20 PM EST [facility] [address] [place], [place] [phone] Rere Romeo PA-C [address] [place], [place] [phone] [facility] Comment on above: RIGHT HIP Start: 01-16-2025 End: 01-16-2025 Patient encounter procedure 01/16/2025 9:30 AM EDT Office Visit [facility] [address] [place] [address] Tanika Alves DO [address] [place] [address] omm [facility] Comment on above: omm Start: 01-13-2025 End: 01-13-2025 Patient encounter procedure 01/13/2025 11:00 AM EDT Office Visit [facility] [address] [place] [address] Rere Romeo PA-C [address] [place] [address] RIGHT HIP [facility] Comment on above: RIGHT HIP Start: 12-30-2024 End: 12-30-2024 ambulatory 12/30/2024 3:45 PM EDT OT/PT/Speech Visit [facility] [address] [place] [address] OCarolyn Akbar, PT Post op right hip labrum repair [facility] Comment on above: Post op right hip la darlene repair Start: 12-29-2024 End: 12-29-2024 Admission to same day surgery center 12/29/2024 11:43 AM EDT - 12/29/2024 1:57 PM EDT Surgery [facility] [address] [place] [address] Sarah Wynn MD [address] [place] [address] ARTHROSCOPY HIP W/ LABRAL REPAIR [facility] Comment on above: ARTHROSCOPY HIP W/ L ABRAL REPAIR Start: 12-29-2024 End: 12-29-2024 Arthroscopy hip w/labral repair ARTHROSCOPY HIP W/ LABRAL REPAIR Acetabular labrum tear, right, subsequent encounter 12/29/2024 11:43 AM EDT MM ASC Start: 12-29-2024 Subsequent hospital visit by physician 12/29/2024 11:43 AM EDT Hospital Encounter [facility] [address] [place] [address] Sarah Wynn MD [address] [place] [address] Acetabular labrum tear, right, subsequent encounter [S73.191D] [facility] Surgery [facility] Comment on above: Acetabular labrum te ar, right, subsequent encounter [S73.191D] Start: 12-08-2024 End: 12-08-2024 Anesthesia consultation 12/08/2024 8:00 AM EDT PAT Pre Anesthesia [address] [place] [address] DOS 12/29/24 Pre Anesthesia Comment on above: DOS 12/29/24 Start: 11-24-2024 Influenza vaccination Influenza Vacc ine (#1) [facility] Start: 11-10-2024 End: 11-10-2024 Patient encounter procedure 11/10/2024 1:30 PM EDT Office Visit [facility] [address] [place] [address] Tanika Alves DO [address] [place] [address] [facility] Comment on above: OMM/SI Joint Start: 2024 End: 2024 ambulatory 2024 10:45 AM EDT [facility] [address] [place] [address] Sarah Wynn MD [address] [place], [place] [phone] RT HIP F/U [facility] Comment on above: RT HIP F/U Start: 10-02-2024 End: 10-02-2024 Patient encounter procedure 10/02/2024 8:45 AM EDT Office Visit [facility] [address] [place] [address] Tainka Alves DO [address] [place] [address] [facility] Comment on above: OMM/SI Joint Start: 09-12-2024 End: 09-12-2024 Patient encounter procedure 09/12/2024 10:30 AM EDT Appointment Radiology [address] [address] RT HIP ARTHROGRAM Radiology Comment on above: RT HIP ARTHROGRAM Start: 09-09-2024 End: 09-09-2024 Patient encounter procedure 09/09/2024 2:15 PM EDT Office Visit [facility] [address] [place] [address] Sarah Wynn MD [address] [place] [address] Rt Hip MRI and US F/U [facility] Comment on above: Rt Hip MRI and US F/ U Start: 09-03-2024 End: 09-03-2024 Patient encounter procedure 09/03/2024 8:15 AM EDT Appointment Radiology [address] [place] [address] US HIP RT; POSTERIOR-EVAL HAMSTRING INSERTION+SCIATIC NERVE. HX OF GLUTE MED TENDON REPAIR Radiology Comment on above: US HIP RT; POSTERIOR -EVAL HAMSTRING INSERTION+SCIATIC NERVE. HX OF GLUTE MED TENDON REPAIR Start: 08-27-2024 End: 08-27-2024 Patient encounter procedure 08/27/2024 9:15 AM EDT Office Visit [facility] [address] [place] [address] Sarah Wynn MD [address] [place] [address] right hip f/u after MRI [facility] Comment on above: right hip f/u after MRI Start: 08-13-2024 End: 08-13-2024 Patient encounter procedure Radiology Comment on above: Pain of right hip [M 25.551] Authorized/als Start: 08-12-2024 End: 08-12-2024 Patient encounter procedure 08/12/2024 8:15 AM EDT Office Visit [facility] [address] [place] [address] Tanika Alves DO [address] [place] [address] 6 week follow up [facility] Comment on above: 6 week follow up Start: 07-30-2024 End: 07-30-2024 Patient encounter procedure 07/30/2024 3:30 PM EDT Office Visit [facility] [address] [place] [address] Sarah Wynn MD [address] [place], [place] [phone] 2 month right hip follow up [facility] Comment on above: 2 month right hip fo llow up Start: 07-01-2024 End: 07-01-2024 Patient encounter procedure 07/01/2024 9:15 AM EDT Office Visit [facility] [address] [place] [address] Tanika Alves DO [address] [place] [address] OMM/SI Joint [facility] Comment on above: OMM/SI Joint Start: 06-05-2024 Patient referral [facility] Work Phone: Start: 05-28-2024 End: 05-28-2024 Patient encounter procedure 05/28/2024 8:15 AM EST Office Visit [facility] [address] [place] [address] Sarah Wynn MD [address] [place], [place] [phone] right hip follow up [facility] Comment on above: right hip follow up Start: 05-27-2024 End: 08-26-2024 C reactive protein [Mass/volume] in Serum or Plasma [facility] Comment on above: Expected: 05/27/2024 , Expires: 08/26/2024 Start: 05-27-2024 End: 08-26-2024 Comprehensive metabolic 2000 panel - Serum or Plasma [facility] Work Phone: Comment on above: Expected: 05/27/2024 , Expires: 08/26/2024 Start: 05-27-2024 End: 08-26-2024 TSH W/REFLEX FT4 [facility] Comment on above: Expected: 05/27/2024 , Expires: 08/26/2024 Start: 05-20-2024 End: 05-20-2024 Patient encounter procedure 05/20/2024 8:15 AM EST Office Visit [facility] [address] [place] [address] Tanika Alves DO [address] [place] [address] OMM/SI Joint [facility] Comment on above: OMM/SI Joint Start: 05-06-2024 End: 05-06-2024 Patient encounter procedure 05/06/2024 8:15 AM EST Appointment Radiology [address] [place] [address] US ASP/INJ HIP JT/BURSA RT; RT ISCHIAL BURSA INJ. Radiology Comment on above: US ASP/INJ HIP JT/BU RSA RT; RT ISCHIAL BURSA INJ. Start: 04-16-2024 End: 04-16-2024 Patient encounter procedure Radiology Comment on above: Rt Hamstring/Hip xra y Rt Hamstring pain, T enosynovitis, Looking for provider to do US Guided Injection Start: 04-09-2024 End: 04-09-2024 Patient encounter procedure [facility] Comment on above: OMM/SI Joint Start: 04-02-2024 End: 04-02-2024 Patient encounter procedure 04/02/2024 4:00 PM EST Office Visit Plastic Surgery [address] [facility] [address] [place] [address] Rosamaria Pitts MD [address] [facility] [address] [place] [address] deviated nasal septum Plastic Surgery Comment on above: deviated nasal septu m Start: 02-15-2024 End: 02-15-2024 Patient encounter procedure 02/15/2024 8:00 AM EST Office Visit [address] [address] [place] [address] [place] [address] [facility] Comment on above: OMM/SI Joint Start: 01-03-2024 End: 01-03-2024 Patient encounter procedure 01/03/2024 9:00 AM EDT Office Visit [address] [address] Tanika Alves DO [address] [place] [address] OMM/SI joint [facility] Comment on above: OMM/SI joint Start: 12-31-2023 End: 12-31-2023 Patient encounter procedure 12/31/2023 9:00 AM EDT Office Visit [address] [address] [place] [address] [place] [address] OMM/SI joint [facility] Comment on above: OMM/SI joint Start: 12-03-2023 End: 12-03-2023 Patient encounter procedure 12/03/2023 9:00 AM EDT Office Visit [address] [address] Tanika Alves DO [address] [place] [address] omm follow up [facility] Comment on above: omm follow up Start: 11-25-2023 Influenza vaccination Influenza Vacc ine (#1) [facility] Start: 11-15-2023 End: 11-15-2023 Patient encounter procedure [facility] Comment on above: OMM/SI Joint pain Start: 11-02-2023 End: 11-02-2023 Patient encounter procedure 11/02/2023 8:45 AM EDT Office Visit [facility] [address] [place], [place] [phone] Easton Parker MD [address] [place], [place] [phone] RIGHT HAND [facility] Comment on above: RIGHT HAND Start: 10-26-2023 End: 10-26-2023 Patient encounter procedure 10/26/2023 10:00 AM EDT Office Visit [facility] [address] [place], [place] [phone] Easton Parker MD [address] [place], [place] [phone] Rt hand/foreign body, [facility] 10[facility]24 [facility] Comment on above: Rt hand/foreign body , [facility] 10/24 Start: 03-26-2023 Behavioral Health Screening Behavioral Health Screening [facility] Start: 03-26-2023 Depression Assessment Depression Ass [facility] Start: 11-24-2022 Influenza vaccination [facility] Start: 05-24-2022 Patient referral [facility] Work Phone: Start: 03-26-2022 DEPRESSION ASSESSMENT DEPRESSION ASS [facility] Start: 02-17-2022 Patient referral [facility] Work Phone: Start: 02-01-2022 Adult depression screening assessment DEPRESSION SCREENING [facility] Start: 11-24-2021 COVID-19 VACCINE (5 - Booster for Moderna series) COVID-19 VACCINE (5 - Booster for Moderna series) [facility] Start: 11-24-2021 Influenza vaccination INFLUENZA (#1) [facility] Start: 07-13-2021 COVID-19 VACCINE (4 - Booster for Moderna series) COVID-19 VACCINE (4 - Booster for Moderna series) [facility] Start: 06-10-2021 DIABETES SCREEN DIABETES SCREEN [facility] Start: 06-10-2021 Diabetes Screening Diabetes Screenin g [facility] Start: 03-26-2021 DEPRESSION ASSESSMENT DEPRESSION ASS ESSMENT [facility] Start: 2018 Pneumococcal Vaccine : 50+ (1 of 1 - PCV) Pneumococcal Vaccine: 50+ (1 of 1 - PCV) [facility] Start: 2018 SHINGRIX VACCINE (1 of 2) SHINGRIX VACCINE (1 of 2) [facility] Start: 2013 COLOGUARD (FIT-DNA) COLOGUARD (FIT-D NA) [facility] Start: 2013 Colonoscopy COLONOSCOPY [facility] Start: 2013 COLORECTAL CANCER SCREENING COLORECTAL CANCER SCREENING [facility] Start: [address] COLONOGRAPHY [facility] Start: 2013 FECAL OCCULT BLOOD FECAL OCCULT BLOO D [facility] Start: 2013 Lipid 1996 panel - S tho or Plasma Lipid Screening [facility] Start: 2013 Lipid panel Lipid Screening [facility] Start: 2013 LIPID SCREEN LIPID SCREEN [facility] Start: 2013 Screening for malign ant neoplasm of colon [facility] Start: 2013 SIGMOIDOSCOPY SIGMOIDOSCOPY [facility] Start: 2008 Mammography [facility] Start: 2008 Screening for malign ant neoplasm of breast Mammogram Screening [facility] Start: 1998 HPV TESTING HPV TESTING [facility] Start: 1998 Screening for malign ant neoplasm of cervix HPV Testing [facility] Start: 1989 PAP TESTING PAP TESTING [facility] Start: 1989 Screening for malign ant neoplasm of cervix [facility] Start: 11-01-1987 Hepatitis B Vaccine (1 of 3 - 19+ 3-dose series) Hepatitis B Vaccine (1 of 3 - 19+ 3-dose series) [facility] Start: 11-01-1987 Urine microalbumin profile [facility] Start: 1986 Anxiety Screening Anxiety Screening [facility] Start: 1986 Depression Screening Depression Scre ening [facility] Start: 1986 HEPATITIS C SCREENING HEPATITIS C SC REENING [facility] Start: 1986 Hepatitis C screening Hepatitis C Karan juan [facility] Start: 1986 HIV SCREENING HIV SCREENING [facility] Start: 1986 HIV screening HIV Screening [facility] Start: 1968 HEPATITIS B (1 of 3 - 3-dose series) HEPATITIS B (1 of 3 - 3-dose series) [facility] Start: 1968 Hepatitis B Vaccine (1 of 3 - 3-dose series) Hepatitis B Vaccine (1 of 3 - 3-dose series) [facility] CBC W Auto Different ial panel - Blood [facility] CBC W Auto Different ial panel - Blood [facility] COVID & INFLUENZA A/ B & RSV PCR, ROUTINE COVID & INFLUENZA A/B & RSV PCR, ROUTINE Microbiology Routine Influenza 05/27/2024 10:51 AM EST [facility] End: 05-16-2025 Guidance for arthrocentesis of Major joint US ASP/INJ HIP JT/BURSA RIGHT Radiology Routine Ischial bursitis of right side 1 Occurrences starting 04/16/2024 until 05/16/2025 [facility] Work Phone: Comment on above: 1 Occurrences starti ng 04/16/2024 until 05/16/2025 End: 10-09-2025 Guidance for injection of Hip IMAGING GUIDED HIP INJECTION RIGHT Radiology Routine Acetabular labrum tear, right, subsequent encounter 1 Occurrences starting 09/09/2024 until 10/09/2025 [facility] Work Phone: Comment on above: 1 Occurrences starti ng 09/09/2024 until 10/09/2025 Lipid 1995 panel - S tho or Plasma [facility] Lipid 1995 panel - S tho or Plasma [facility] Lipid 1995 panel - S tho or Plasma [facility] MG Breast - bilatera l Screening [facility] End: 08-30-2025 MR Hip - right WO contrast MRI HIP WO IVCON RIGHT Radiology Routine Pain of right hip Ischial bursitis of right side Hamstring tendinitis of right thigh 1 Occurrences starting 07/30/2024 until 08/30/2025 [facility] Work Phone: Comment on above: 1 Occurrences starti ng 07/30/2024 until 08/30/2025 Osteopathic manipula tive tx 3-4 body regions OSTEOPATHIC MANIP,3-4 BODY REGN Procedures Routine Somatic dysfunction of sacral region Somatic dysfunction of pelvis region Somatic dysfunction of lower extremity Somatic dysfunction of lumbar region Ordered: 01/06/2022 [facility] Work Phone: Comment on above: Ordered: 01/06/2022 Osteopathic manipula tive tx 5-6 body regions OSTEOPATHIC MANIP,5-6 BODY REGN Procedures Routine Somatic dysfunction of spine, cervical Somatic dysfunction of thoracic region Somatic dysfunction of lumbar region Somatic dysfunction of sacral region Somatic dysfunction of pelvis region Somatic dysfunction of lower extremity SI (sacroiliac) joint dysfunction Ordered: 09/16/2021 [facility] Work Phone: Comment on above: Ordered: 09/16/2021 Osteopathic manipula tive tx 5-6 body regions OSTEOPATHIC MANIP,5-6 BODY REGN Procedures Routine SI (sacroiliac) joint dysfunction Acute bilateral low back pain without sciatica Somatic dysfunction of lumbar region Somatic dysfunction of pelvis region Somatic dysfunction of lower extremity Somatic dysfunction of abdominal region Somatic dysfunction of rib region Ordered: 10/07/2021 [facility] Work Phone: Comment on above: Ordered: 10/07/2021 Osteopathic manipula tive tx 5-6 body regions OSTEOPATHIC MANIP,5-6 BODY REGN Procedures Routine Somatic dysfunction of head region Somatic dysfunction of cervical region Somatic dysfunction of lumbar region Somatic dysfunction of sacral region Somatic dysfunction of pelvis region Somatic dysfunction of lower extremity Ordered: 04/21/2022 [facility] Work Phone: Comment on above: Ordered: 04/21/2022 Osteopathic manipula tive tx 7-8 body regions OSTEOPATHIC MANIP,7-8 BODY REGN Procedures Routine Somatic dysfunction of head region Somatic dysfunction of cervical region Somatic dysfunction of thoracic region Somatic dysfunction of sacral region Somatic dysfunction of pelvis region Somatic dysfunction of rib Somatic dysfunction of lumbar region Ordered: 12/02/2021 [facility] Work Phone: Comment on above: Ordered: [...] Somatic dysfunction of upper extremities Ordered: 05/19/2022 [facility] Work Phone: Comment on above: Ordered: [...] Somatic dysfunction of lower extremity Ordered: 11/03/2022 [facility] Work Phone: Comment on above: Ordered: 11/03/2022 Patient Education ED Influenza (Adult) [facility] Work Phone: Patient referral [facility] Work Phone: Thyroid stimulating hormone measurement [facility] End: 08-29-2025 US Hip - right US HIP RIGHT Radiology Routine Ischial bursitis of right side Hamstring tendinitis of right thigh 1 Occurrences starting 07/30/2024 until 08/29/2025 [facility] Comment on above: 1 Occurrences starti ng 07/30/2024 until 08/29/2025 US Pelvis [facility] End: 05-01-2025 XR Pelvis and Hip - right AP and Lateral frog XR HIP GENERAL 3V PELV/AP/LAT RIGHT Radiology Routine Pain 1 Occurrences starting 04/01/2024 until 05/01/2025 [facility] Work Phone: Comment on above: 1 Occurrences starti ng 04/01/2024 until 05/01/2025 [facility] Immunizations Immunization Date Immunization Notes Care Provider Maria T yao 01-03-2024 COVID-19 vaccine, ag e 12+ yr (Mengcao COMIRNATY) Tanika Alves DO Work Phone: [facility] 01-03-2024 influenza, seasonal, injectable Tanika Alves DO Work Phone: [facility] 01-03-2024 influenza virus vaccine, unspecified formulation Tanika Alves DO Work Phone: [facility] 10-25-2023 tetanus toxoid, redu americo diphtheria toxoid, and acellular pertussis vaccine, adsorbed Antonio Vivar ARMATURE VARNISHER.WELFARE OFFICER Work Phone: [facility] 01-02-2023 COVID-19 vaccine, ag e 12+ yr, season (Mengcao) Taniak Alves DO Work Phone: [facility] 01-02-2023 influenza virus vaccine, unspecified formulation Tanika Alves DO Work Phone: [facility] 06-01-2022 Covid (Moderna) Dr. Richi Hamilton Work Phone: [facility] 01-18-2022 influenza virus vaccine, unspecified formulation Tanika Alves DO Work Phone: [facility] 01-20-2021 influenza virus vaccine, unspecified formulation Fili Danyelle DO Work Phone: [facility] 04-27-2020 COVID-19 vaccine, fu ll dose (MODERNA) Fili Danyelle DO Work Phone: [facility] 03-30-2020 COVID-19 vaccine, fu ll dose (MODERNA) Fili Danyelle DO Work Phone: [facility] 12-16-2019 influenza virus vaccine, unspecified formulation Sarah Wynn MD Work Phone: [facility] 01-21-2019 influenza, injectabl e, quadrivalent, contains preservative Fili Danyelle DO Work Phone: [facility] 01-03-2018 influenza virus vaccine, unspecified formulation Fili Danyelle DO Work Phone: [facility] 02-08-2017 influenza virus vaccine, unspecified formulation Fili Bassett DO Work Phone: [facility] 01-13-2016 influenza virus vaccine, unspecified formulation Fili Bassett DO Work Phone: [facility] 03-08-2015 influenza, injectabl e, quadrivalent, preservative free Dr. Ama Hamilton Work Phone: [facility] 03-08-2015 influenza, seasonal, injectable Dr. Ama Hamilton Work Phone: [facility] Payers Date Payer Category Payer Self-pay [id number] 2023 Government (not [facility] care or [facility]) [facility] [id number] 2023 Unknown [id number] 2023 Unknown PENDING 2013 Private Health Insurance MMO SUP [employer] PPO [id number] 2013 Unknown MMO MMO [employer] PLUS [id number] 2013-Present [phone] [address] [place] [address] PPO [id number] 2013 Unknown [id number] 2013 Unknown [id number] Unknown [id number] Unknown [id number] Unknown [id number] Unknown [id number] 462 Unknown [id number] 462 Unknown [id number] 462 Unknown [id number] 462 Unknown [id number] 462 Unknown [id number] 462 Unknown [id number] 462 Social History Date Type Detail Facility Start: 01-04-2017 End: 01-06-2022 Tobacco smoking status NHIS Never smoked tobacco [facility] Start: 09-16-2021 End: 09-09-2024 Alcohol intake Current drinker of alcohol (finding) [facility] Start: 01-04-2017 History SDOH Alcohol Comment Rarely. [facility] Start: 01-04-2017 End: 01-06-2022 Tobacco Comment No smoking in childhood or adult homes. [facility] Start: 1970 Sex Assigned At Female C [facility] Work Phone: Start: 09-06-2021 End: 01-06-2022 Exposure to SARS-CoV-2 (event) Not sure [facility] Work Phone (unformatted): [phone] Start: 08-31-2021 End: 07-30-2023 Tobacco smoking status NHIS Unknown if ever smoked [facility] Start: 01-04-2017 End: 01-06-2022 Tobacco use and exposure Smokeless tobacco non-user [facility] Work Phone: Start: 09-12-2022 End: 11-03-2022 History of Social function [facility] Start: 09-12-2022 End: 11-03-2022 Tobacco use panel [facility] Start: 02-25-2012 Adult Depression Screening Assessment 0 [facility] Start: 01-04-2017 Gender identity Identifies as female gender (finding) [facility] Work Phone: Start: 01-04-2017 Sexual orientation Heterosexual (fin ding) [facility] Work Phone: Start: 06-28-2024 Sex Female (finding) [facility] Goals Date Patient Goal Desired Activity /State Personal health goal Functional Status Date Assessment Result Facility 06-07-2017 Are you deaf, or do you have serious difficulty hearing No 06/07/2017 10:13 AM Josefina Fox RN No [facility] 06-07-2017 Are you blind, or do you have serious difficulty seeing, even when wearing glasses No 06/07/2017 10:13 AM Josefina Fox RN No [facility] 06-07-2017 Do you have serious difficulty walking or climbing stairs No 06/07/2017 10:13 AM Josefina Fox RN No [facility] 06-07-2017 Do you have difficul ty dressing or bathing No 06/07/2017 10:13 AM Josefina Fox RN No [facility] 06-07-2017 Because of a physica l, mental, or emotional condition, do you have difficulty doing errands alone such as visiting a physician's office or shopping No 06/07/2017 10:13 AM EDT Josefina Salinas RN No [facility] Mental Status Date Assessment Result Facility 02-23-2022 Cognitive function Level Of Cons ciousness Awake;Alert;Appropriate;Fol lows Commands [facility] Work Phone: 06-07-2017 Because of a physica l, mental, or emotional condition, do you have serious difficulty concentrating, remembering, or making decisions No 06/07/2017 10:13 AM EDT Josefina Salinas RN No [facility] Clinical Notes 01-24-2017 to 11-14-2024 Patient InstructionsTanika Alves, DO - 11/14/2024 8:04 AM EDTTelephone Encounter - [place]on Wheatley AT - 10/10/2024 3:27 PM EDTPatient InstructionsSarah Wynn MD - 09/09/2024 2:19 PM EDT Note Date & Type Note Facility 11-14-2024 Instructions Tanika Alves, - 11/14/2024 8:31 AM EDT Please note the following after [...] above instructions, please call our office at [phone]. A message will be left with our [...] You can call our appointment line at [phone] and press option number 1 to leave a message. Please leave a current phone number to reach you back. documented in this encounter [facility] 11-14-2024 Note HNO ID: [id number] Author: TANIKA ALVES DO Service: ? Author Type: Physician Type: Progress Notes Filed: 11/14/2024 08:39 Note Text: Osteopathic Neuromusculoskeletal Medicine Progress Note Name: Margot Hu Date of : 1970 PCP: Ama Hamilton MD Date of Exam: November 14, 2024 This note was completed using [employer] AI Scribe; use of the scribe was explained to the patient who gave verbal consent to use of an AI scribe. Chief Complaint: This is Margot Hu, a 54 year old female who presents with Patient presents with: SI joint pain: Right side AMB ROOMING INTAKE FLOWSHEET DATA Pain Pain Level: 2 Pain Location: (Joint) Description: Aching Duration Units: Years Frequency: Intermittent Intervention/Comfort measure: Reposition, Relaxation, Exercise, Medication SUBJECTIVE History of Present Illness: Margot Hu is a 54-year-old female presenting with right-sided neck pain and stiffness. Margot reports right-sided neck pain and stiffness, extending into the suboccipital region, which she describes as crabby. She identifies a trigger point in the area, noting that the pain is exacerbated when she breathes to the right while swimming. The pain is severe enough that she sometimes has to manually lift her chin to turn her head. She denies any specific trauma or injury to the neck. 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 She attributes the neck pain to her swimming activities, particularly when breathing to the right side. She also mentions having a neck and notes that her neck was over pliable during her competitive swimming days. In addition to neck pain, Margot reports issues with her right sacroiliac (SI) joint, describing it as spooky. She has a history of bilateral gluteus medius repairs and a current right labral tear, which she plans to have repaired. She describes her pelvis as stubborn and notes that her L5 vertebra tends to get stuck. She denies any specific trauma or injury to the gluteal muscles. Medical, surgical, and family histories reviewed. Allergies and social history reviewed. Review of Systems: Musculoskeletal: (+) right neck pain, (+) neck stiffness, (+) right sacroiliac pain, (+) low back stiffness OBJECTIVE BP 115/65 Pulse 69 Temp (Src) 97.3 (Temporal) Wt 158 lb 15.2 oz (72.1kg) LMP 10/25/2023 Physical Exam Vitals and nursing [...] by Body Region: Head: Suboccipital hypertonicity; OA flexed sidebent right, rotated left Cervical: Bilateral paraspinal hypertonicity, C4-C6 flexed, rotated and side bent left Thoracic: Bilateral paraspinal hypertonicity; T3-T5 neutral, sidebent left and rotated right Lumbar: L2-L5 neutral, side bent right and rotated left Sacral: Bilateral SI joints tight; sacrum flexed, side bent right and rotated left Pelvis: Bilateral innominate's restricted; right innominate anteriorly rotated and out flared ASSESSMENT AND PLAN Neck pain (primary encounter diagnosis) Chronic right si joint pain Right hip pain Somatic dysfunction of head region Somatic dysfunction of cervical region Somatic dysfunction of thoracic region Somatic dysfunction of lumbar region Somatic dysfunction of sacral region Somatic dysfunction of pelvis region Orders Placed This Encounter Osteopathic manipulative treatment (OMT) Order Comments: This order was created via procedure documentation Presenting structural biopsychotype: Not assessed Patient presents for follow-up, reporting acute on chronic neck pain exacerbated by swimming. Also still having pain in the right hip and right SI joint, which are chronic. Gets good relief with OMT. She does have a known right hip labral tear, scheduled for surgery in December. No recent trauma or injury. Somatic dysfunction was identified on exam. OMT was performed today to improve function and reduce symptoms with good effect. See procedure note below. Return in about 9 weeks (around 01/16/2025). 30 minutes were spent on the date of service was dedicated to p (more content not included)... [facility] 11-14-2024 History of Present illness Narrative Associated Order(s): Osteopathic manipulative treatment (OMT) Post-Procedure Diagnose(s): Neck pain; Somatic dysfunction of cervical region; Somatic dysfunction of thoracic region; Somatic dysfunction of lumbar region; Right hip pain; Somatic dysfunction of sacral region; Somatic dysfunction of pelvis region; Chronic right SI joint pain; Somatic dysfunction of head region Images from the original note were not included. Osteopathic Neuromusculoskeletal Medicine Progress Note Name: Margot Hu Date of : 1970 PCP: Ama Hamilton MD Date of Exam: November 14, 2024 This note was completed using [employer] AI Scribe; use of the scribe was explained to the patient who gave verbal consent to use of an AI scribe. Chief Complaint: This is Margot Hu, a 54 year old female who presents with Patient presents with: SI joint pain: Right side AMB ROOMING INTAKE FLOWSHEET DATA Pain Pain Level: 2 Pain Location: (Joint) Description: Aching Duration Units: Years Frequency: Intermittent Intervention/Comfort measure: Reposition, Relaxation, Exercise, Medication SUBJECTIVE History of Present Illness: Margot Hu is a 54-year-old female presenting with right-sided neck pain and stiffness. Margot reports right-sided neck pain and stiffness, extending into the suboccipital region, which she describes as crabby. She identifies a trigger point in the area, noting that the pain is exacerbated when she breathes to the right while swimming. The pain is severe enough that she sometimes has to manually lift her chin to turn her head. She denies any specific trauma or injury to the neck. 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 She attributes the neck pain to her swimming activities, particularly when breathing to the right side. She also mentions having a neck and notes that her neck was over pliable during her competitive swimming days. In addition to neck pain, Margot reports issues with her right sacroiliac (SI) joint, describing it as spooky. She has a history of bilateral gluteus medius repairs and a current right labral tear, which she plans to have repaired. She describes her pelvis as stubborn and notes that her L5 vertebra tends to get stuck. She denies any specific trauma or injury to the gluteal muscles. Medical, surgical, and family histories reviewed. Allergies and social history reviewed. Review of Systems: Musculoskeletal: (+) right neck pain, (+) neck stiffness, (+) right sacroiliac pain, (+) low back stiffness OBJECTIVE BP 115/65 Pulse 69 Temp (Src) 97.3 (Temporal) Wt 158 lb 15.2 oz (72.1kg) LMP 10/25/2023 Physical Exam Vitals and nursing [...] by Body Region: Head: Suboccipital hypertonicity; OA flexed sidebent right, rotated left Cervical: Bilateral paraspinal hypertonicity, C4-C6 flexed, rotated and side bent left Thoracic: Bilateral paraspinal hypertonicity; T3-T5 neutral, sidebent left and rotated right Lumbar: L2-L5 neutral, side bent right and rotated left Sacral: Bilateral SI joints tight; sacrum flexed, side bent right and rotated left Pelvis: Bilateral innominate's restricted; right innominate anteriorly rotated and out flared ASSESSMENT & PLAN Neck pain (primary encounter diagnosis) Chronic right si joint pain Right hip pain Somatic dysfunction of head region Somatic dysfunction of cervical region Somatic dysfunction of thoracic region Somatic dysfunction of lumbar region Somatic dysfunction of sacral region Somatic dysfunction of pelvis region Orders Placed This Encounter Osteopathic manipulative treatment (OMT) Order Comments: This order was created via procedure documentation Presenting structural biopsychotype: Not assessed Patient presents for follow-up, reporting acute on chronic neck pain exacerbated by swimming. Also still having pain in the right hip and right SI joint, which are chronic. Gets good relief with OMT. She does have a known right hip labral tear, scheduled for surgery in December. No recent trauma or injury. Somatic dysfunction was identified on exam. OMT was performed today to improve function and reduce symptoms with good effect. See procedure note below. Return in about 9 weeks (around 01/16/2025). 30 minutes were spent on the date of service was dedicated to preparing to see the patient, [id number] patient care, completing clinical documentation, obtaining and/or [...] directed to the author. Tanika Alves DO 8:04 AM 11/14/2024 Procedure Osteopathic manipulative treatment (OMT) Time/Date:11/14/2024 8:36 AM Informed Consent Consent Obtained: Verbal [place] Protocol A moment to CARE was completed. SIGN IN Special Equipment: N/A Patient/Surrogate Stated/Verified: Patient name, Date of and Intended procedure TIME OUT Consent documented and matches the intended procedure. Consent Obtained:Verbal Body Regions: Head, Cervical, Thoracic, Lumbar, Sacrum and Pelvis Head Technique: balanced ligamentous tension, suboccipital release Cervical Technique: facilitated positional release, myofascial release Thoracic Technique: facilitated positional release Lumbar Technique: myofascial release Sacrum Technique: myofascial release Pelvis Technique: myofascial release Number of Body Regions: 5- 6 Disposition: Osteopathic manipulation tolerated well, reports subjective and objective improvement, improvement in range of motion and mechanics, instructed to increase hydration for the next 24 hours and instructed to follow up if symptoms worsen or fail to improve documented in this encounter [facility] 2024 Note HNO ID: [id number] Author: SARAH WYNN MD Service: ? Author Type: Physician Type: Progress Notes Filed: 2024 10:55 Note Text: I have communicated my name and active licensure. The patient's identity and physical location were verified at the time of this visit. Either the patient or their legal senior human resources representative has been informed of the risks and benefits of -- and alternatives to -- treatment through a remote evaluation and consents to proceed with the evaluation remotely. Subjective Margot Hu is a 54 year old female. Hip Pain: - Reports 100% relief of hip pain following recent hip injection. - Inquires about surgical options and details of the procedure. - Has mild impingement on both the socket and ball side. - Limited physical activity due to pain; unable to engage in hiking or walking for extended distances. 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 Objective LMP 10/25/2023 (Exact Date) No exam performed 1. Acetabular labrum tear, right, subsequent encounter (S73.191D) - Significant relief following intra-articular hip injection, confirming intra-articular source of pain. - Imaging demonstrates minimal arthritis and mild mixed-type impingement (pincer and cam morphology); no significant dysplasia. - Discussed hip arthroscopy with labral repair or reconstruction and femoroacetabular impingement decompression; procedure is outpatient, approximately 1.5 hours, with two small incisions. - Reviewed surgical risks, benefits, and alternatives; patient expressed understanding and interest in proceeding. - Surgery scheduled for December 29; will include bursa removal and tendon evaluation. - Postoperative plan: partial weight-bearing with crutches and brace for 2-3 weeks (may extend based on intraoperative findings), immediate initiation of physical therapy to prevent scar formation, gradual return to activities over 6-12 weeks, and full functional recovery expected by 3-6 months. - Advised patient to prepare with gluteal activation exercises as tolerated; emphasized importance of postoperative rehabilitation for optimal outcome. - Provided written information on surgery and recovery expectations. - Follow-up by [facility] to confirm surgical details; patient instructed to contact if no communication by Sunday. Visit was conducted via [employer] Patient Location: None of the Above [facility] 10-10-2024 Telephone encounter Note Spoke with patient on the phone. Refer to telephone encounter from today for full documentation. Yulisa Finney, AT, ATC [facility] Work Phone: 10-10-2024 Miscellaneous Notes Spoke with patient on the phone. Refer to telephone encounter from today for full documentation. Yulisa Finney, AT, ATC documented in this encounter [facility] 10-10-2024 Telephone encounter Note Spoke with patient on the phone. Patient had a right hip joint injection on 09-12-24. Patient reports 100% relief of her symptoms for about 4 days. She said she felt amazing and it was an eye opening event. Pain returned about 10 days later. Given the significant relief from the injection (albeit short lived), advised patient she would be a candidate for a hip arthroscopy to treat her labral tear. Other options would be to give this more time, continued activity modification, PT. Patient has been dealing with this for some time now so she would like to discuss surgical options. Will get her set up for a follow up with Dr. Wynn to discuss further. Will tentatively get her set for an December surgery date, pending her follow up with Dr. Wynn in the next few weeks. All questions were addressed. Yulisa Finney, AT, ATC [facility] Work Phone: 10-10-2024 Miscellaneous Notes Spoke with patient on the phone. Patient had a right hip joint injection on 09-12-24. Patient reports 100% relief of her symptoms for about 4 days. She said she felt amazing and it was an eye opening event. Pain returned about 10 days later. Given the significant relief from the injection (albeit short lived), advised patient she would be a candidate for a hip arthroscopy to treat her labral tear. Other options would be to give this more time, continued activity modification, PT. Patient has been dealing with this for some time now so she would like to discuss surgical options. Will get her set up for a follow up with Dr. Wynn to discuss further. Will tentatively get her set for an December surgery date, pending her follow up with Dr. Wynn in the next few weeks. All questions were addressed. Yulisa Finney, AT, ATC documented in this encounter [facility] 10-02-2024 Instructions Tanika Alves DO - 10/02/2024 9:16 AM EDT Please note the following after [...] above instructions, please call our office at [phone]. A message will be left with our [...] You can call our appointment line at [phone] and press option number 1 to leave a message. Please leave a current phone number to reach you back. documented in this encounter [facility] 10-02-2024 Note HNO ID: [id number] Author: TANIKA ALVES DO Service: ? Author Type: Physician Type: Progress Notes Filed: 10/02/2024 09:25 Note Text: Osteopathic Neuromusculoskeletal Medicine Progress Note Name: Margot uH Date of : 1970 PCP: Ama Hamilton MD Date of Exam: October 02, 2024 This note was completed using [employer] AI Scribe; use of the scribe was explained to the patient who gave verbal consent to use of an AI scribe. Chief Complaint: This is Margot Hu, a 53 year old female who presents with Patient presents with: Hip Pain Low Back Pain: SI joint AMB ROOMING INTAKE FLOWSHEET DATA Pain Pain Level: 3 Pain Location: Hip-Right Description: Aching Duration Units: Months Frequency: Continuous Intervention/Comfort measure: Reposition, Relaxation, Pillow support, Positioning SUBJECTIVE History of Present Illness: Margot Hu is a 53-year-old female presenting for follow-up on chronic bilateral hip pain. Margot was last seen in July and has since undergone an MRI, which revealed a torn labrum. She received an injection nearly 3 weeks ago, which provided relief for approximately 4 days. However, the pain has since returned and is described as constant and severe, feeling like someone shot me in the butt. She also experiences stabbing pain in the IT band when the groin pain intensifies. Margot was previously taking meloxicam, which was discontinued prior to the injection. She reports that the pain limits her activities, including hiking and yoga, and she has resorted to swimming for exercise. Since doing so she has developed some neck pain and tightness as well. 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 This has led to tendinopathy and recurrent flares. 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 Medical, surgical, and family histories reviewed. Allergies and social history reviewed. Review of Systems: Constitutional: (-) chills Musculoskeletal: (+) buttock pain, (+) bilateral groin pain, (+) iliotibial band pain, (+) neck pain, (+) hip pain, (-) knee pain, (-) knee stiffness OBJECTIVE BP 121/65 Pulse 78 Temp (Src) 98.2 (Temporal) Wt 157 lb 3 oz (71.3kg) LMP 10/25/2023 Physical Exam Vitals and nursing [...] Somatic Dysfunction by Body Region: Head: OA sidebent right, rotated left; suboccipital hypertonicity Cervical: Bilateral paraspinal and scalene hypertonicity; AA rotated left; C3 and C4 flexed rotated and sidebent left; C6 flexed rotated and sidebent right Thoracic: Bilateral paraspinal hypertonicity; T2 flexed rotated and sidebent right Sacral: Bilateral SI restrictions Pelvis: Bilateral hip capsule restrictions ASSESSMENT AND PLAN Chronic right si joint pain (primary encounter diagnosis) Right hip pain Neck pain Somatic dysfunction of head region Somatic dysfunction of cervical region Somatic dysfunction of thoracic region Somatic dysfunction of sacral region Somatic dysfunction of pelvis region Orders Placed This Encounter Osteopathic manipulative treatment (OMT) Order Comments: This order was created via procedure documentation Patient presents for follow-up of chronic SI pain, also reporting intermittent right hip pain. Recently diagnosed with a torn labrum. Due to functional loss from these issues she has switched to swimming as her primary exercise, which she (and her neck) are unaccustomed to, leading to some neck pain and tightness as well. Somatic dysfunction was identified on exam. OMT was performed today to improve function and reduce symptoms with good effect. See procedure note below. Return in about 6 weeks (around 11/13/2024). 30 minutes were spent on the date of service was dedicated to preparing to see the patient, [id number] patient care, completing clinical documentation, obtaining and/or reviewing separately obtained history, performing a medically appropriate examination, counseling and educating the patient/family/ (more content not included)... [facility] 10-02-2024 History of Present illness Narrative Associated Order(s): Osteopathic manipulative treatment (OMT) Post-Procedure Diagnose(s): Neck pain; Somatic dysfunction of cervical region; Somatic dysfunction of thoracic region; Right hip pain; Somatic dysfunction of sacral region; Somatic dysfunction of pelvis region; Chronic right SI joint pain; Somatic dysfunction of head region Images from the original note were not included. Osteopathic Neuromusculoskeletal Medicine Progress Note Name: Magrot Hu Date of : 1970 PCP: Ama Hamilton MD Date of Exam: October 02, 2024 This note was completed using [employer] AI Scribe; use of the scribe was explained to the patient who gave verbal consent to use of an AI scribe. Chief Complaint: This is Margot Hu, a 53 year old female who presents with Patient presents with: Hip Pain Low Back Pain: SI joint AMB ROOMING INTAKE FLOWSHEET DATA Pain Pain Level: 3 Pain Location: Hip-Right Description: Aching Duration Units: Months Frequency: Continuous Intervention/Comfort measure: Reposition, Relaxation, Pillow support, Positioning SUBJECTIVE History of Present Illness: Margot Hu is a 53-year-old female presenting for follow-up on chronic bilateral hip pain. Margot was last seen in July and has since undergone an MRI, which revealed a torn labrum. She received an injection nearly 3 weeks ago, which provided relief for approximately 4 days. However, the pain has since returned and is described as constant and severe, feeling like someone shot me in the butt. She also experiences stabbing pain in the IT band when the groin pain intensifies. Margot was previously taking meloxicam, which was discontinued prior to the injection. She reports that the pain limits her activities, including hiking and yoga, and she has resorted to swimming for exercise. Since doing so she has developed some neck pain and tightness as well. 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 This has led to tendinopathy and recurrent flares. 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 Medical, surgical, and family histories reviewed. Allergies and social history reviewed. Review of Systems: Constitutional: (-) chills Musculoskeletal: (+) buttock pain, (+) bilateral groin pain, (+) iliotibial band pain, (+) neck pain, (+) hip pain, (-) knee pain, (-) knee stiffness OBJECTIVE BP 121/65 Pulse 78 Temp (Src) 98.2 (Temporal) Wt 157 lb 3 oz (71.3kg) LMP 10/25/2023 Physical Exam Vitals and nursing [...] Somatic Dysfunction by Body Region: Head: OA sidebent right, rotated left; suboccipital hypertonicity Cervical: Bilateral paraspinal and scalene hypertonicity; AA rotated left; C3 and C4 flexed rotated and sidebent left; C6 flexed rotated and sidebent right Thoracic: Bilateral paraspinal hypertonicity; T2 flexed rotated and sidebent right Sacral: Bilateral SI restrictions Pelvis: Bilateral hip capsule restrictions ASSESSMENT & PLAN Chronic right si joint pain (primary encounter diagnosis) Right hip pain Neck pain Somatic dysfunction of head region Somatic dysfunction of cervical region Somatic dysfunction of thoracic region Somatic dysfunction of sacral region Somatic dysfunction of pelvis region Orders Placed This Encounter Osteopathic manipulative treatment (OMT) Order Comments: This order was created via procedure documentation Patient presents for follow-up of chronic SI pain, also reporting intermittent right hip pain. Recently diagnosed with a torn labrum. Due to functional loss from these issues she has switched to swimming as her primary exercise, which she (and her neck) are unaccustomed to, leading to some neck pain and tightness as well. Somatic dysfunction was identified on exam. OMT was performed today to improve function and reduce symptoms with good effect. See procedure note below. Return in about 6 weeks (around 11/13/2024). 30 minutes were spent on the date of service was dedicated to preparing to see the patient, [id number] patient care, completing clinical documentation, obtaining and/or [...] and treated with the assistance of Dr. Fernando Clayton DO. I was present for the entire visit and personally interviewed, examined, and treated the patient. The resident was also present for the visit and assisted specifically with OMT in a learning role. Tanika Alves DO 8:49 AM 10/02/2024 Procedure Osteopathic manipulative treatment (OMT) Time/Date:10/02/2024 9:22 AM Informed Consent Consent Obtained: Verbal [place] Protocol A moment to CARE was completed. SIGN IN Special Equipment: N/A Patient/Surrogate Stated/Verified: Patient name, Date of and Intended procedure TIME OUT Consent documented and matches the intended procedure. Consent Obtained:Verbal Body Regions: Head, Cervical, Thoracic, Sacrum and Pelvis Head Technique: balanced ligamentous tension, suboccipital release Cervical Technique: balanced ligamentous tension, progressive inhibition of neuromusculoskeletal structures Thoracic Technique: facilitated positional release, myofascial release Sacrum Technique: Augmentation of CRI Pelvis Technique: Augmentation of CRI Number of Body Regions: 5- 6 Disposition: Osteopathic manipulation tolerated well, reports subjective and objective improvement, improvement in range of motion and mechanics, instructed to increase hydration for the next 24 hours and instructed to follow up if symptoms worsen or fail to improve documented in this encounter [facility] 09-12-2024 History of Present illness Narrative Radiology Service Progress Note PATIENT NAME: Margot Hu DATE OF SERVICE: September 12, 2024 TIME: 1:16 PM PATIENT IDENTITY VERIFICATION COMPLETED USING TWO [...] PATIENT PRESENTS WITH AN IMPLANTABLE OR ATTACHED ASSISTANT MEN'S LACROSSE COACH: No RADIOLOGY DEPARTMENT: General X-ray: Exam(s) Completed: THERAPEUTIC JOINT INJECTION right hip PERIPHERAL IV DATA: Not applicable SIGNED BY: UZMA Decker) September 12, 2024 1:16 PM documented in this encounter [facility] 09-12-2024 Note HNO ID: [id number] Author: JENNIFER WILSON RT(R) Service: Radiology Author Type: Technologist Type: Progress Notes Filed: 09/12/2024 13:17 Note Text: Radiology Service Progress Note PATIENT NAME: Margot Hu DATE OF SERVICE: September 12, 2024 TIME: 1:16 PM PATIENT IDENTITY VERIFICATION COMPLETED USING TWO [...] PATIENT PRESENTS WITH AN IMPLANTABLE OR ATTACHED ASSISTANT MEN'S LACROSSE COACH: No RADIOLOGY DEPARTMENT: General X-ray: Exam(s) Completed: THERAPEUTIC JOINT INJECTION right hip PERIPHERAL IV DATA: Not applicable SIGNED BY: RT Brianne(R) September 12, 2024 1:16 PM [facility] 09-09-2024 Note HNO ID: [id number] Author: SARAH WYNN MD Service: ? Author Type: Physician Type: Progress Notes Filed: 09/09/2024 14:36 Note Text: DEPARTMENT OF ORTHOPAEDICS Chief Complaint: [...] hamstring origin tendinosis without tear. PHYSICAL EXAM: LMP 10/25/2023 General: Appears stated [...] Medius Positive Negative Piriformis Negative Negative IMPRESSION: (S73.039W) Acetabular labrum tear, right, subsequent encounter (primary [...] Past Histories independently gathered by the clinical information support project manager and the remaining scribed note accurately describes my personal service to the patient. Sarah Wynn MD [facility] 09-09-2024 History of Present illness Narrative Images [...] hamstring origin tendinosis without tear. PHYSICAL EXAM: [facility] 10/25/2023 General: Appears stated age, well [...] Medius Positive Negative Piriformis Negative Negative IMPRESSION: (S73.939D) Acetabular labrum tear, right, subsequent encounter (primary [...] Scribe Attestation: By signing my name below, IEaston AT, attest that this documentation has been prepared under the direction and in the presence of Sarah Wynn M.D. Electronically Signed:Easton Wheatley, AT, September 09, 2024 2:19 PM I agree with the Chief Complaint, ROS, and Past Histories independently gathered by the clinical information support project manager and the remaining scribed note accurately describes my personal service to the patient. Sarah Wynn MD documented in this encounter [facility] 08-13-2024 Note HNO ID: [id number] Author: MASON GREEN RT(R) Service: Radiology Author Type: Abatement Worker Type: Progress Notes Filed: 08/13/2024 11:22 Note [...] PATIENT PRESENTS WITH AN IMPLANTABLE OR ATTACHED ASSISTANT MEN'S LACROSSE COACH: No RADIOLOGY DEPARTMENT: MR; Exam(s) Completed: Lower MSK: Hip, right . Lavender Administered: No PERIPHERAL IV DATA: Not applicable SIGNED BY: RT Baylee(R) August 13, 2024 8:47 AM [facility] 08-12-2024 Instructions Tanika Alves DO - 08/12/2024 [...] above instructions, please call our office at [phone]. A message will be left with our [...] You can call our appointment line at [phone] and press option number 1 to leave a message. Please leave a current phone number to reach you back. documented in this encounter [facility] 08-12-2024 Note HNO ID: [id number] Author: TANIKA ALVES DO Service: ? Author Type: Physician Type: Progress Notes Filed: 08/12/2024 09:15 Note Text: Osteopathic Neuromusculoskeletal Medicine Progress Note Name: Margot Hu Date of : 1970 PCP: Ama Hamilton MD Date of Exam: August 12, 2024 This note was completed using [employer] AI Scribe; use of the scribe was [...] dedicated to preparing to see the patient, [id number] patient care, completing clinical documentation, obtaining and/or reviewing separately obtained history, performing a medically appropriate examination, counseling and educating the patient/family/caregiver, and time excludes procedure OMT. This note was partially generated using voice recognition software as well as an AI scribe. It has been reviewed for typographical errors, however some may remain. Any questions regarding (more content not included)... [facility] 08-12-2024 History of Present illness Narrative [...] 12, 2024 This note was completed using [employer] AI Scribe; use of the scribe was [...] dedicated to preparing to see the patient, [id number] patient care, completing clinical documentation, obtaining and/or [...] 9:13 AM Informed Consent Consent Obtained: Verbal [place] Protocol A moment to CARE was completed. [...] fail to improve documented in this encounter [facility] 07-31-2024 Telephone encounter Note PT scheduled for MSK US on 09/03/24 at 8:15 AM at Sports [facility] 07-31-2024 Miscellaneous Notes PT scheduled for MSK US on 09/03/24 at 8:15 AM at Sports Visit Type: [place] [id number] Visit Length: 45 OR 60 MINUTES Order Name/Protocol: US HIP RT; POSTERIOR-EVAL HAMSTRING INSERTION+SCIATIC NERVE. HX OF GLUTE MED TENDON REPAIR Preferred Provider: N/A Comment: N/A Location: [facility] Slot held: N/A documented in this encounter [facility] 07-31-2024 Telephone encounter Note Visit Type: MSK1 Visit Length: 45 OR 60 MINUTES Order Name/Protocol: US HIP RT; POSTERIOR-EVAL HAMSTRING INSERTION+SCIATIC NERVE. HX OF GLUTE MED TENDON REPAIR Preferred Provider: N/A Comment: N/A Location: [facility] Slot held: N/A [facility] 07-30-2024 Note HNO ID: [id number] Author: SARAH WYNN MD Service: ? Author [...] region. Pain is affecting ADL's. PHYSICAL EXAM: [facility] 10/25/2023 General: Appears stated age, well [...] the presence of Sarah Wynn M.D. Electronically Signed:ENRST Rodas, July 30, 2024 3:33 PM I agree with the Chief Complaint, ROS, and Past Histories independently gathered by the clinical information support project manager and the remaining scribed note accurately describes my personal service to the patient. Sarah Wynn MD [facility] 07-30-2024 History of Present illness Narrative Images [...] region. Pain is affecting ADL's. PHYSICAL EXAM: [facility] 10/25/2023 General: Appears stated age, well [...] Past Histories independently gathered by the clinical information support project manager and the remaining scribed note accurately describes my personal service to the patient. Sarah Wynn MD documented in this encounter [facility] 07-01-2024 Note HNO ID: [id number] Author: TANIKA ALVES, DO Service: ? Author Type: Physician Type: Progress Notes Filed: 07/01/2024 09:49 Note Text: Osteopathic Neuromusculoskeletal Medicine Progress Note Name: Margot Hu Date of : 1970 PCP: Ama Hamilton MD Date of Exam: July 01, 2024 This note was completed using [employer] AI Scribe; use of the scribe was [...] (Temporal) Wt 162 lb 11.2 oz (73.8kg) [facility] 10/25/2023 GENERAL: NAD, alert and oriented. SKIN: [...] weeks (around 5 (more content not included)... [facility] 07-01-2024 History of Present illness Narrative [...] 01, 2024 This note was completed using [employer] AI Scribe; use of the scribe was [...] dedicated to preparing to see the patient, [id number]-[id number] patient care, completing clinical documentation, obtaining and/or [...] 9:47 AM Informed Consent Consent Obtained: Verbal [place] Protocol A moment to CARE was completed. [...] fail to improve documented in this encounter [facility] 07-01-2024 Instructions Tanika Alves DO - 07/01/2024 9:43 AM EDT [...] above instructions, please call our office at [phone]. A message will be left with our [...] You can call our appointment line at [phone] and press option number 1 to leave a message. Please leave a current phone number to reach you back. documented in this encounter [facility] 06-25-2024 Radiology Diagnostic study note [facility] Imaging Services [address] [place] [id number] Breast Limited Unilateral MR#: [id number] Acct: [id number] Name: MARGOT RITTER Rep #: [id number] : 1970 F 53 From: Malaika Quiros MD PCP: Dr. Ama Hamilton MD Status: R EG CLI Study:Breast Limited Unilateral Date of Exam: 06/25/24 Exam# [id number] Ordering Dr: Daysi Hamilton MD EXAM: DIAG [...] be mailed to the patient. Reading Location: [facility] CC: Dr. Ama Hamilton MD ~ Saw Superintendent: Signed [facility] 06-05-2024 Evaluation note Diagnosis Onset Date Resolution Health care maintenance acute [facility] 2024 4:55pm Allergies chronic June 05 4:55pm IBS (irritable bowel syndrome) chronic June 05, 2024 4:55pm Menopausal hot flushes chronic Ma [facility] 2024 4:55pm Pain in left axilla chronic June 05, 2024 4:55pm POTS (postural orthostatic tachycardia syndrome) chronic June 05, 2024 4:55pm Tinnitus of both ears chronic Mar 2024 4:55pm [facility] Work Phone: 1(843) 261-841603-13-2025 Evaluation note* Diagnosis Onset Date Resolution Status Admit Date Allergies chronic June 05 4:55pm IBS (irritable bowel syndrome) chron ic June 05, 2024 4:55pm Menopausal hot flushes chronic Ma [facility] 2024 4:55pm Pain in left axilla chronic June 05, 2024 4:55pm POTS (postural orthostatic tachycardia syndrome) chronic May 4:55pm Tinnitus of both ears chronic Mar 2024 4:55pm Health care maintenance deleted [facility] 2024 4:55pm Encounter for routine gynecological examination noneactive September 292024 2:47pm [employer] Work Phone: 1(408) 761-185103-05-2025 History of Present illness Narrative* Sarah Wynn MD - 05/28/2024 8:12 AM EST Images from the original note were [...] two times a week. Biocidin Advanced Formula ([employer]) Take 5 Drops by mouth three times daily. A-EB/H6 ([employer]) Take 1-2 drops daily, increase to 10 drops per day as tolerated. Cortisol Credit Coordinator 90 ct. ([employer]) Stress, blood sugar, [...] strength with resisted knee flexion at 90 and45 degrees. She does have reproducible pain when she fires her hamstring in full extension. She hasmild pain just medial to the hamstring insertion. Review of Systems: GENERAL: No weight loss, malaise or fevers MUSCULOSKELETAL: See HPI Imaging: Assessment/Plan: Improved right ischial bursitis Plan for the patient reviewed. Patient dropped off her MRI to our office which I have not seen yet.I will need to do this. This was [...] insertion this can include ischiofemoral space. This couldinclude sciatic nerve. She voiced understanding agreement with the plan. All questions answered today. Sarah Wynn MD This note was partially generated using [employer] voice recognition system, and there may be some incorrect words, spellings, and punctuation that were not noted in checking the note before saving. Medical Decision Making: Medical Decision Making Level: 1 - N/A [facility]25 NoteHNO ID: [id number] Author: SARAH WYNN MD Service: ? Author [...] two times a week. Biocidin Advanced Formula ([employer]) Take 5 Drops by mouth three times daily. A-EB/H6 ([employer]) Take 1-2 drops daily, increase to 10 drops per day as tolerated. Cortisol Credit Coordinator 90 ct. ([employer]) Stress, blood sugar, [...] MD This note was partially generated using [employer] voice recognition system, and there may be some incorrect words, spellings, and punctuation that were not noted in checking the note before saving. Medical Decision Making: Medical Decision Making Level: 1 - N/[facility]03-04-2025 Note HNO ID: [id number] Author: ROSAMARIA KINCAID PA-C Service: ? Author Type: Physician Com Writer Type: Progress Notes Filed: 05/27/2024 12:10 Note Text: This note was created using [employer]. Subjective Margot Hu is a 53 year [...] - C-REACTIVE PROTEIN - TSH W/REFLEX FT4 [facility] History of Present illness Narrative* Rosamaria Kincaid PA-C - 05/27/2024 12:04 PM EST This note was created using [employer]. Subjective Margot Hu is a 53 year old female. Patient is a 53-year-old female who complains of fever, chills, body aches with mild congestion andslight cough that she has been experiencing for [...] accident or injury and states she has notedno redness or swelling to the area. Patient reports no dyspnea or shortness of breath. Patient doesexercise daily. Flu Like Symptoms Associated symptoms include chills, fatigue, a fever and myalgias. Review of Systems Constitutional: Positive for chills, fatigue and fever. Musculoskeletal: Positive for myalgias. All other systems reviewed and are negative. Objective BP 124/82 Pulse 73 Temp 36.6 C (97.8 F) (Tympanic) Resp 18 Wt 72.8 kg (160 lb 7.9 oz) LMP10/25/2023 (Exact Date) SpO2 98% BMI 22.38 kg/m [...] blood pressure 124/82. Outpatient CBC, CMP, CRP, ESRand TSH/T4 were ordered. Patient was advised that she will be contacted once the above results are received. Patient states that she does have an appointment already scheduled to see her primary carephysician next week. Patient was very clearly advised [...] FT4 Rosamaria Kincaid PA-C documented [facility] [id number] (AGENT OF COVID-19) RNA: Not detected INFLUENZA A RNA: Not detected INFLUENZA B RNA: Not detected RESPIRATORY SYNCYTIAL VIRUS (RSV) RNA: Not detectedMedina HospitalComment on above:Performed By: #### [id number] ####[facility] LABCLIA [id number] [address] [id number] Telephone encounter Note* Telephone Encounter - Easton Wu - 04/17/2024 1:31 PM EST PT scheduled for MSK US INJ on 05/06/24 at 8:15 AM at [facility]. [facility]01-23-2025 Miscellaneous Notes* Telephone Encounter - Easton Wu - 04/17/2024 1:31 PM EST PT scheduled for MSK US INJ on 05/06/24 at 8:15 AM at Sports. * Telephone Encounter - Easton Wu - 04/17/2024 12:03 PM EST Visit Type: INJ ONLY 1 Visit Length: 60 MINUTES Order Name/Protocol: US ASP/INJ HIP JT/BURSA RT; RT ISCHIAL BURSA INJ. Preferred Provider: N/A Comment: N/A Location: [facility] Slot held: N/A [facility] Telephone encounter Note * Telephone Encounter - Easton Wu - 04/17/2024 12:03 PM EST Visit Type: INJ ONLY 1 Visit Length: 60 MINUTES Order Name/Protocol: US ASP/INJ HIP JT/BURSA RT; RT ISCHIAL BURSA INJ. Preferred Provider: N/A Comment: N/A Location: [facility] Slot held: N/A [facility]01-22-2025 NoteHNO ID: [id number] Author: SARAH WYNN MD Service: ? Author [...] patient's assessment and treatment recommendations. Sarah Wynn [facility]01-22-2025 History of Present illness Narrative* Sarah Wynn MD - 04/16/2024 2:58 PM EST I have reviewed the history and physical obtained by my resident or fellow. HPI explored in detail with the patient. Pt was seen by me and arango findings were confirmed. I agree with the findings as documented. I personally participated the patient's assessment and treatment recommendations. Sarah Wynn MD * Christa Ashton MD - 04/16/2024 2:10 PM EST Images from the original note were not included. DEPARTMENT OF ORTHOPAEDICS Chief Complaint: Right hip pain HISTORY OF PRESENT ILLNESS: This is a pleasant 53 year old female, who presents today with a chief complaint of right hip pain. 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 Biocidin Advanced Formula ([employer]) Take 5 Drops by mouth three times daily. A-EB/H6 ([employer]) Take 1-2 drops daily, increase to 10 drops per day as tolerated. Cortisol Credit Coordinator 90 ct. 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 She hasbeen doing therapy unsuccessfully and has tried both OTC medications and oral prednisone with only transient success. We will refer her for an ultrasound-guided injection and see her response after. She will continue offloading the area as able and avoiding exacerbating activities. She will work ongetting the disc of her images. Ordered for 15mg meloxicam. PLAN: 1. Medication: continue, ordered for 15mg meloxicam. 2. Test(s)/Imaging/Referral(s): us guided ischial bursa injection. 3. Intervention: .us guided ischial bursa injection. 4. Follow-up: PRN. Christa Ashton MD Sports Medicine/Orthopaedic Surgery documented [facility]25 NoteHNO ID: [id number] Author: CHRISTA ASHTON MD Service: ? Author Type: Fellow Type: Progress Notes Filed: 04/16/2024 14:58 Note Text: DEPARTMENT OF ORTHOPAEDICS Chief Complaint: Right hip pain HISTORY OF PRESENT ILLNESS: This is a pleasant 53 year old female, who presents today with a chief complaint of right hip pain. 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 Biocidin Advanced Formula ([employer]) Take 5 Drops by mouth three times daily. A-EB/H6 ([employer]) Take 1-2 drops daily, increase to 10 drops per day as tolerated. Cortisol Credit Coordinator 90 ct. ([employer]) Stress, blood sugar, [...] Negative for cough, hem (more content not included)...[facility]01-22-2025 History of Present illness Narrative* Antonio Pan, RT(R) - 04/16/2024 2:00 PM EST Radiology Service Progress Note PATIENT NAME: Margot uH DATE OF SERVICE: April 16, 2024 TIME: [...] Assigned female at . status: : No status:NO. PATIENT RELEVANT IMPLANT DATA REVIEWED: Not Applicable PATIENT PRESENTS WITH AN IMPLANTABLE OR ATTACHED ASSISTANT MEN'S LACROSSE COACH: No RADIOLOGY DEPARTMENT: General X-ray: Exam(s) Completed: Pelvis X-Ray: Pelvis with Hip Right PERIPHERAL IV DATA: Not applicable SIGNED BY: RT Aletha(R) April 16, 2024 1:59 PM documented in this encounterMem[facility]2025 NoteHNO ID: [id number] Author: ANTONIO PAN RT(R) Service: ? Author Type: Abatement Worker Type: Progress Notes Filed: 04/16/2024 13:59 Note [...] PATIENT PRESENTS WITH AN IMPLANTABLE OR ATTACHED ASSISTANT MEN'S LACROSSE COACH: No RADIOLOGY DEPARTMENT: General X-ray: Exam(s) Completed: Pelvis X-Ray: Pelvis with Hip Right PERIPHERAL IV DATA: Not applicable SIGNED BY: RT Aletha(R) April 16, 2024 1:59 [facility]01-15-2025 Instructions* Patient Instructions* Tanika Alves DO - 04/09/2024 4:26 PM [...] above instructions, please call our office at [phone]. A message will be left with our [...] You can call our appointment line at [phone] and press option number 1 to leave a message. Please leave a current phone number to reachyou back. documented in this encounterMemorial [facility]-2025 NoteHNO ID: [id number] Author: TANIKA ALVES DO Service: ? Author [...] dedicated to preparing to see the patient, yehb-fh-vrfg patient care, completing clinical documentation, obtaining and/or [...] treated with the cooper (more content not included)...[facility]01-15-2025 History of Present illness Narrative * Tanika Alves DO - 04/09/2024 4:01 PM ESTAssociated Order(s): Osteopathic manipulative treatment (OMT) Post-Procedure Diagnose(s): Ischial bursitis of right side; Finger pain, right; Somatic dysfunctionof head region; Somatic dysfunction of cervical region; [...] is doing okay. She does continue to experiencepersistent and constant burning, often sharp, pain over the ischial tuberosity on the right side 2/2 known ischial bursitis; no significant improvement with OMT. She does have an appointment with next week and plans to discuss potentially [...] significantly improved. Somatic dysfunction correlating with her symptomswas identified on exam today. The goal of [...] dedicated to preparing to see the patient, nqzv-gs-wlvs patient care, completing clinical documentation, obtaining and/or [...] 4:31 PM Informed Consent Consent Obtained: Verbal [place] Protocol A moment to CARE was completed. [...] or fail to improve documented in this encounterMemorial [facility]12-11-2024 Evaluation note* Diagnosis Onset Date Resolution Status Admit Date Ischial bursitis of right side acute March 05, 024 7:22am Health care maintenance acute [facility] 2024 4:55pm Allergies chronic June 05 4:55pm IBS (irritable bowel syndrome) chronic June 05, 2024 4:55pm Menopausal hot flushes chronic [facility] 2024 4:55pm Pain in left axilla chronic June 05, 2024 4:55pm POTS (postural orthostatic tachycardia syndrome) chronic May 4:55pm Tinnitus of both ears chronic [facility] 2024 4:55pm [facility] Work Phone: 1(233) 192-698911-22-2024 Instructions* Patient Instructions* Tanika Alves DO - [...] above instructions, please call our office at [phone]. A message will be left with our [...] You can call our appointment line at [phone] and press option number 1 to leave a message. Please leave a current phone number to reachyou back. documented in this encounterMemorial [facility]11-22-2024 NoteHNO ID: [id number] Author: TANIKA ALVES DO Service: ? Author [...] dedicated to preparing to see the patient, ldaw-xa-xvtg patient care, completing clinical documentation, obtaining and/or reviewin (more content not included)...[facility]11-22-2024 History of Present illness Narrative* Tanika [...] dedicated to preparing to see the patient, tgdo-wf-hzap patient care, completing clinical documentation, obtaining and/or [...] 8:34 AM Informed Consent Consent Obtained: Verbal [place] Protocol A moment to CARE was completed. [...] or fail to improve documented in this encounterMemorial [facility]10-10-2024 Nurse Note* Magaly Sanchez RN - 01/03/2024 10:13 AM EDT Flu/Covid Immunizations were given as ordered. Vaccination information sheets given. Patient tolerated well. Magaly Sanchez RN [facility]10-10-2024 Nurse Note* Magaly Sanchez RN - 01/03/2024 10:13 AM EDT Flu/Covid Immunizations were given as ordered. Vaccination information sheets given. Patient tolerated well. Magaly Sanchez RN documented in this encounterMemorial [facility]10-10-2024 Instructions* Patient Instructions* Tanika Alves DO [...] above instructions, please call our office at [phone]. A message will be left with our [...] You can call our appointment line at [phone] and press option number 1 to leave a message. Please leave a current phone number to reachyou back. documented in this encounterMemorial [facility]10-10-2024 NoteHNO ID: [id number] Author: TANIKA ALVES DO Service: ? Author [...] documentation INFLUENZA VACCINE, AGE 6MO-64YR, TRIVALENT (FLUZONE) PFIZER-Bluetest COVID-19 VACCINE AGE 12+ YR (COMIRNATY) Patient [...] dedicated to preparing to see the patient, mloz-gs-xzup patient care, completing clinical documentation, obtaining and/or [...] learning role. Luis Freeman (more content not included)...[facility] 01-03-2024 History of Present illness Narrative* [...] documentation INFLUENZA VACCINE, AGE 6MO-64YR, TRIVALENT (FLUZONE) Mengcao COVID-19 VACCINE AGE 12+ YR (COMIRNATY) Patient [...] dedicated to preparing to see the patient, rrob-et-rpdj patient care, completing clinical documentation, obtaining and/or [...] 9:35 AM Informed Consent Consent Obtained: Verbal [place] Protocol SIGN IN Special Equipment: N/A Patient/Surrogate [...] or fail to improve documented in this encounterMemorial [facility]09-13-2024 NoteHNO ID: [id number] Author: EASTON PARKER MD Service: ? Author [...] to call the office with questions or concerns.[facility] History of Present illness Narrative* Easton Parker [...] with questions or concerns. documented in this encounterMemorial [facility]09-09-2024 Instructions* Patient Instructions* Tanika Alves DO [...] above instructions, please call our office at [phone]. A message will be left with our [...] You can call our appointment line at [phone] and press option number 1 to leave a message. Please leave a current phone number to reachyou back. documented in this encounterMemorial [facility]09-09-2024 NoteHNO ID: [id number] Author: TANIKA ALVES DO Service: ? Author [...] dedicated to preparing to see the patient, mhwa-lt-coix patient care, completing clinical documentation, obtaining and/or [...] 9:27 AM Informed Consent Consent Obtained: Verbal [place] Protocol SIGN IN Special Equipment: N/A Patient/Surrogate Stated/Verified: Patient name, Date of and Intended procedure TIME OUT I (more content not included)...[facility]09-09-2024 History of Present illness Narrative* Tanika [...] included. Osteopathic Neuromusculoskeletal Medicine Progress Note Name: Magrot Hu Date of : 1970 PCP: Ama [...] dedicated to preparing to see the patient, jguw-cr-zplm patient care, completing clinical documentation, obtaining and/or [...] 9:27 AM Informed Consent Consent Obtained: Verbal [place] Protocol SIGN IN Special Equipment: N/A Patient/Surrogate [...] or fail to improve documented in this encounterMemorial [facility]08-22-2024 Instructions* Patient Instructions* Tanika Alves DO [...] above instructions, please call our office at [phone]. A message will be left with our [...] You can call our appointment line at [phone] and press option number 1 to leave a message. Please leave a current phone number to reachyou back. documented in this encounterMemorial [facility]08-22-2024 History of Present illness Narrative* Tanika Alves DO - 11/15/2023 9:00 AM EDTAssociated Order(s): Osteopathic manipulative treatment (OMT) [...] she was on a hiking trip in [place]. After returning from the trip, she noticed [...] dedicated to preparing to see the patient, ilsc-cn-xmuv patient care, completing clinical documentation, obtaining and/or [...] 9:37 AM Informed Consent Consent Obtained: Verbal [place] Protocol SIGN IN Special Equipment: N/A Patient/Surrogate [...] or fail to improve documented in this encounterMemorial [facility]08-13-2024 [facility] Medical Records Department [address] [place] [address] History Physical Exam 11/06/23712 MR#: [id number] Acct: [id number] Name: MARGOT HU Rep #: [id number] : 1970 53 From: Natalya Schaffer DO PCP: Dr. 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 Is patient in pain?: No Allergies naproxen sodium (From Aleve) Allergy (Severe, Verified 10/29/23 15:38) HivesPenicillins (PCN) Allergy (Unknown, Verified 10/29/23 15:38) Unknownmidodrine Allergy (Verified 10/29/23 15:38) RashSulfa (Sulfonamide Antibiotics) Adverse Reaction (Severe, Verified 10/29/23 15:38) Other Medications ???Medication ???Instructions ???Recorded ???Confirmed ???Type multivitamin,vm-ktuw-anacpbwp 27 1 tab PO DAILY 01/29/17 10/29/23 History mg-0.4 mg tablet krill 1,000 mg-omega-3 170 mg-dha 1 cap PO BID 04/19/17 10/29/23 History 50 mg-epa 80 sj-uwnquk-ohuyb capsule (krill oil) cholecalciferol (vitamin D3) 125 [...] Postmenopausal bleeding: Status: Acute (more content not included)...[facility]08-09-2024 NoteHNO ID: [id number] Author: EASTON PARKER MD Service: ? Author [...] to call the office with questions or concerns.[facility]08-[facility] History of Present illness Narrative* Easton Parker [...] with questions or concerns. documented in this encounterMemorial [facility]08-02-2024 NoteHNO ID: [id number] Author: EASTON PARKER MD Service: ? Author [...] to call the office with questions or concerns.[facility]08-02-2024 History of Present illness Narrative* Easton Parker [...] bleeding, clots, bleeding disorders. documented in this encounterMemorial [facility]08-02-2024 NoteHNO ID: [id number] Author: CRISTÓBAL LOCKHART Tech Service: ? Author Type: Abatement Worker Type: Progress Notes Filed: 10/30/2023 10:17 Note [...] HEMATOLOGY: Negative for excessive bleeding, clots, bleeding disorders.[facility]08-01-2024 Telephone encounter Note* Telephone Encounter - Blanca Mac - 10/25/2023 11:42 AM EDT ----- Message [...] other than patient: pt Best contact number: [phone] Thank you, Marleen Combs October 25, 2023 11:39 AM [facility]08-01-2024 Miscellaneous Notes* Telephone Encounter - Blanca [...] other than patient: pt Best contact number: [phone] Thank you, Marleen Combs October 25, 2023 11:39 AM documented in this encounterMemorial [facility]08-01-2024 History of Present illness Narrative* Antonio Vivar APRN.WELFARE OFFICER - 10/25/2023 11:12 AM EDT Images from [...] two times a week. Biocidin Advanced Formula (Corrupt Lace) Take 5 Drops by mouth three times daily. A-EB/H6 (Bright White Formulas) Take 1-2 drops daily, increase to 10 drops per day as tolerated. Cortisol Credit Coordinator 90 ct[address] ([employer]) Stress, blood sugar, [...] AGE 7+ YR (ADACEL, BOOSTRIX) Antonio Vivar APRN.WELFARE OFFICER documented in this encounterMemorial [facility]08-01-2024 History of Present illness Narrative* Salma Michael, RT(R) - 10/25/2023 11:10 AM EDT Radiology [...] PATIENT PRESENTS WITH AN IMPLANTABLE OR ATTACHED ASSISTANT MEN'S LACROSSE COACH: No RADIOLOGY DEPARTMENT: General X-ray: Exam(s) Completed: Upper Extremity X- Ray(s): Hand, right PERIPHERAL IV DATA: Not applicable SIGNED BY: RT Emily(R) October 25, 2023 11:07 AM documented in this encounterMemorial [facility]07-09-2024 Instructions* Patient Instructions* Tanika Alves DO [...] above instructions, please call our office at [phone]. A message will be left with our [...] You can call our appointment line at [phone] and press option number 1 to leave a message. Please leave a current phone number to reachyou back. documented in this encounterMemorial [facility]07-09-2024 History of Present illness Narrative* BrunoTanika moraDO - 10/02/2023 8:27 AM EDTAssociated Order(s): Osteopathic [...] dedicated to preparing to see the patient, rrnc-wp-gjyz patient care, completing clinical documentation, obtaining and/or [...] 9:09 AM Informed Consent Consent Obtained: Verbal [place] Protocol SIGN IN Special Equipment: N/A Patient/Surrogate [...] or fail to improve documented in this encounterMemorial [facility]05-06-2024 NotePap Smear Specimen AdequacyMay 2023 2:00pmComment.Satisfactory for evaluation. Endocervical and/or squamous metaplasticcells (endocervical component)are present.[facility] INTERFACED A#[id number] Health St. Elizabeth Youngstown HospitalComment on above:Satisfactory for evaluation. Endocervical and/or [...] above instructions, please call our office at [phone]. A message will be left with our [...] You can call our appointment line at [phone] and press option number 1 to leave a message. Please leave a current phone number to reachyou back. documented in this encounterMemorial [facility]05-01-2024 History of Present illness Narrative* Tanika [...] dedicated to preparing to see the patient, mpie-wl-nuem patient care, completing clinical documentation, obtaining and/or [...] 8:58 AM Informed Consent Consent Obtained: Verbal [place] Protocol SIGN IN Special Equipment: N/A Patient/Surrogate [...] or fail to improve documented in this encounterMemorial [facility]03-18-2024 Discharge summary Author Letty Long [facility] June 11, 2023 9:07am Note Date/Time June 11, 2023 9:0 7am [facility] [address] [place] [address] [address] [place] [address] / REHABILITATION SERVICES DISCHARGE SUMMARY MR#: [id number] Acct: [id number] Name: MARGOT HU Rep #: [id number] : 1970 52 From: Letty Gore Referring DrSilverio: Status: REG R Insurance: [facility] SELF PAY INSURANCE Discharge Summary D/C summary: It has been my pleasure to treat MARGTO HU referred by HIREN HYLTON, with the [...] please feel free to call me at [phone]. Thank you for the referral of thispatient. Sincerely, ANURAG Bolaños Balance/Gait/Functional tests Balance/Special Test Scores Lower Extremity Functional Score: 77 Improvement % Improvement: 85 <Electronically signed by Letty Long MPT> 06/11/23 0907 CC: Dr. Ama Hamilton MD; HIREN HYLTON ~ Signed [facility] Work Phone: 1(342) 518-260802-21-2024 Instructions* Patient Instructions* Tanika Alves, - 05/16/2023 [...] above instructions, please call our office at [phone]. A message will be left with our [...] You can call our appointment line at [phone] and press option number 1 to leave a message. Please leave a current phone number to reachyou back. documented in this encounterMemorial [facility]02-21-2024 History of Present illness Narrative* Tanika [...] dedicated to preparing to see the patient, xpao-qn-wxcj patient care, completing clinical documentation, obtaining and/or [...] 10:03 AM Informed Consent Consent Obtained: Verbal [place] Protocol SIGN IN Special Equipment: N/A Patient/Surrogate [...] or fail to improve documented in this encounterMemorial [facility]12-12-2023 Instructions* Patient Instructions* Tanika Alves DO [...] above instructions, please call our office at [phone]. A message will be left with our [...] You can call our appointment line at [phone] and press option number 1 to leave a message. Please leave a current phone number to reachyou back. documented in this encounterMemorial [facility]12-12-2023 History of Present illness Narrative* Tanika [...] dedicated to preparing to see the patient, nnht-yh-lefb patient care, completing clinical documentation, obtaining and/or [...] 12:11 PM Informed Consent Consent Obtained: Verbal [place] Protocol SIGN IN Special Equipment: N/A Patient/Surrogate [...] or fail to improve documented in this encounterMemorial [facility]11-01-2023 Instructions* Patient Instructions* Tanika Alves DO [...] above instructions, please call our office at [phone]. A message will be left with our [...] You can call our appointment line at [phone] and press option number 1 to leave a message. Please leave a current phone number to reachyou back. documented in this encounterMemorial [facility]11-01-2023 History of Present illness Narrative* Tanika [...] Different modalities were used today, particularly using Geovanni percussion. We will reassess efficacy of this particular treatment modality at next visit. Return in about 3 weeks (around 02/14/2023). >50% of time spent on the date of service was dedicated to preparing to see the patient, mtjl-am-zqeo patient care, completing clinical documentation, obtaining and/or reviewing separately obtained history, performing a medically appropriate examination, and counseling and educating the patient/f amily/caregiver. This note was partially generated using voice recognition software. It has been reviewed for typographical errors, however some may remain. Any questions regarding meaning or word use should be directed to the author. Tanika Alves DO 11:02 AM 01/24/2023 Procedure Osteopathic manipulative treatment (OMT) Time/Date:01/24/2023 11:34 AM Informed Consent Consent Obtained: Verbal [place] Protocol SIGN IN Special Equipment: N/A Patient/Surrogate [...] or fail to improve documented in this encounterMemorial [facility]10-09-2023 Instructions* Patient Instructions* Tanika Alves DO [...] above instructions, please call our office at [phone]. A message will be left with our [...] You can call our appointment line at [phone] and press option number 1 to leave a message. Please leave a current phone number to reachyou back. documented in this encounterMemorial [facility]10-09-2023 History of Present illness Narrative* Tanika [...] dedicated to preparing to see the patient, vpvb-id-qlac patient care, completing clinical documentation, obtaining and/or [...] 2:32 PM Informed Consent Consent Obtained: Verbal [place] Protocol SIGN IN Special Equipment: N/A Patient/Surrogate [...] or fail to improve documented in this encounterMemorial [facility]08-11-2023 Instructions* Patient Instructions* Tanika Alves DO [...] above instructions, please call our office at [phone]. A message will be left with our [...] You can call our appointment line at [phone] and press option number 1 to leave a message. Please leave a current phone number to reachyou back. documented in this encounterMemorial [facility]08-11-2023 History of Present illness Narrative* Erlinda Loyola DO - 11/03/2022 8:47 AM EDT Images from the original note were not included. Osteopathic Neuromusculoskeletal Medicine Outpatient Progress Note Name: Margot Hu Date of : 1970 Date of Exam: November 03, 2022 Last [facility] Office Visit: 09/12/2022 Ama Hamilton MD is [...] the knee. [place] able [place] again without [place] brace without much difficulty. [...] allergies Medication changes: None Social History: Margot Smith Hu reports that she has never smoked. [...] about 5 weeks (around 12/08/2022). Start time: 0847; end time: 934 Time Spent (min): 46 >50% of time spent on the date of service was dedicated to preparing to see the patient, muyo-pv-xzck patient care, completing clinical documentation, obtaining and/or [...] 03, 2022 4:01 PM documented in this encounterMemorial [facility]03-27-2023 Discharge summary Author Traci Fuentes [facility] June 19, 2022 8:03am Note Date/Time June 19, 2022 8:0 3am [facility] [address] [place] [address] [address] [place] [address] / REHABILITATION SERVICES DISCHARGE SUMMARY MR#: [id number] Acct: [id number] Name: MARGOT HU Rep #: [id number] : 1970 51 From: Traci L Dallas DP T Referring DrSilverio: OUT OF TOWN DOCTOR Status: REG RCR Insurance: [facility] SELF PAY INSURANCE MARGOT HU was seen [...] by the physician. Thank you! Traci Fuentes, ESTEPHANIAT Balance/Gait/Functional tests - Balance/Special Test Scores Lower Extremity Functional Score: 64 <Electronically signed by Traci Fuentes DPT> 06/19/22 0803 CC: Dr. Ama Hamilton MD; MAXIM TAT ~ ELR Signed [facility] Work Phone: 1(138) 144-545002-24-2023 History of Present illness Narrative* Erlinda Loyola, [...] intravenous contrast. This report was created using [employer] report generation technology. COMPARISON: Right knee radiography [...] which included preparing to see the patient, hspy-lx-kbwk patient care, completing clinical documentation, obtaining and/or [...] 19, 2022 5:04 PM documented in this encounterMemorial [facility]02-13-2023 Instructions* Patient Instructions* Maxim Lou DO - 05/08/2022 6:31 PM EST Images from the original note were not included. PUZJDJFH-Vxpff-Mixct-Cfkmrnvgmv-Ilizcgk-Hkvjspf-Vxpea-Dmmt-Clywjzlt-Mobility-Inspector Boiler seJmt-pxotwbea-Ynwqfco-qmjp-[id number] Please note the following after treatment with [...] above instructions, please call our office at [phone]. A message will be left with our [...] You can call our appointment line at [phone] and press option number 1 to leave a message. Please leave a current phone number to reachyou back. documented in this encounterMemorial [facility]01-27-2023 Instructions* Patient Instructions* Tanika Alves DO [...] above instructions, please call our office at [phone]. A message will be left with our [...] You can call our appointment line at [phone] and press option number 1 to leave a message. Please leave a current phone number to reachyou back. documented in this encounterMemorial [facility]01-27-2023 History of Present illness Narrative* Elizabeth [...] note that this is outside of the [facility] system). Patient's functional goals: Resolve all [...] which included preparing to see the patient, gpuw-gb-exgb patient care, completing clinical documentation, obtaining and/or [...] the labs and the recent notes in [facility]. I haveedited the note based on my personal assessment of the patient. My edits are represented by deletions and italic additions. I agree with the work-up as detailed in the resident's note above. Elizabeth Ram D.O., Alix-AKILA, C- Associate Help Aid, Osteopathic Neuromusculoskeletal Medicine Residency [facility] documented in this encounterMemorial Health [facility]10-14-2022 Instructions* Patient Instructions* Maxim Lou DO [...] above instructions, please call our office at [phone]. A message will be left with our [...] You can call our appointment line at [phone] and press option number 1 to leave a message. Please leave a current phone number to reachyou back. documented in this encounterMemorial [facility]10-14-2022 History of Present illness Narrative* Buzz [...] 2021 after hiking up and down in [place]. She reports she hiked approximately 33 miles [...] drugs. 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 I have discussed this patient's history, [...] D.O. Core Faculty, Osteopathic Neuromusculoskeletal Medicine Residency [facility] documented in this encounterMemorial [facility]09-09-2022 Instructions* Patient Instructions* Maxim Lou DO [...] above instructions, please call our office at [phone]. A message will be left with our [...] You can call our appointment line at [phone] and press option number 1 to leave a message. Please leave a current phone number to reachyou back. documented in this encounterMemorial Health System Selby [facility] of [facility] Narrative* Elizabeth [...] which included preparing to see the patient, [id number] patient care, completing clinical documentation, obtaining and/or [...] the labs and the recent notes in [facility]. I have edited the note based on my personal assessment of the patient. My edits are represented by deletions and italic additions. I agree with the work-up as detailed in the resident's note above. Elizabeth Ram D.O., C-ONMM, C-FM Help Aid, Osteopathic Neuromusculoskeletal Medicine Residency [facility] History of Present illness Narrative* Priti Ramesh DO Jonathan - 10/07/2021 9:00 AM EDT Outpatient consult [...] personally reviewed the last progress note in [facility]. COUNSELED PATIENT ON I counseled patient on [...] was seen and evaluated with Dr. Jonathan Bassett, DO 9:00 AM 10/07/2021 On the date [...] the labs and the recent notes in [facility]. I have edited the note based on mypersonal assessment of the patient. My edits are represented by and italic additions. I agree with the work-up as detailed in the resident's note above. Priti Castillo DO October 07, 2021 12:38 PM [facility] History of Present illness Narrative* Buzz [...] Hx of right ankle inversion injury in . High school Review of Systems: Review of [...] personally reviewed the last progress note in [facility]. COUNSELED PATIENT ON I counseled patient on their specific diagnosis listed above. I counseled patient on the recommendations listed below. After visit summary was reviewed with the patient. Start time: 914; end time: 9:54 Time Spent (min): 39 I spent a total of 20 minutes on the date of the service which included preparing to see the patient, [id number] patient care, completing clinical documentation, obtaining and/or [...] Buzz Noel Faculty, Osteopathic Neuromusculoskeletal Medicine Residency [facility] History of Past illness Narrative* Problem Noted Date Resolved Date Thyroid mass 01/24/2017 06/07/2017 POTS (postural orthostatic tachycardia syndrome) 09/14/2013 06/07/2017 Muscle tear 04/23/2013 06/07/2017 Orthostatic hypotension 04/23/2013 06/08/19 18 Tachycardia 02/27/2013 06/07/2017 Abdominal pain, other specified site 02/27/2013 06/07/2017 Diarrhea 02/27/2013 06/07/2017 documented as of this encounter (statuses as of 09/16/2021) [facility] History of Past illness Narrative* Problem Noted Date Resolved Date Thyroid mass 01/24/2017 06/07/2017 POTS (postural orthostatic tachycardia syndrome) 09/14/2013 06/07/2017 Muscle tear 04/23/2013 06/07/2017 Orthostatic hypotension 04/23/2013 06/08/19 18 Tachycardia 02/27/2013 06/07/2017 Abdominal pain, other specified site 02/27/2013 06/07/2017 Diarrhea 02/27/2013 06/07/2017 documented as of this encounter (statuses as of 10/07/2021) [facility] History of Past illness Narrative* Problem Noted Date Resolved Date Thyroid mass 01/24/2017 06/07/2017 POTS (postural orthostatic tachycardia syndrome) 09/14/2013 06/07/2017 Muscle tear 04/23/2013 06/07/2017 Orthostatic hypotension 04/23/2013 06/08/19 18 Tachycardia 02/27/2013 06/07/2017 Abdominal pain, other specified site 02/27/2013 06/07/2017 Diarrhea 02/27/2013 06/07/2017 documented as of this encounter (statuses as of 12/02/2021) [facility] History of Past illness Narrative* Problem Noted Date Resolved Date Thyroid mass 01/24/2017 06/07/2017 POTS (postural orthostatic tachycardia syndrome) 09/14/2013 06/07/2017 Muscle tear 04/23/2013 06/07/2017 Orthostatic hypotension 04/23/2013 06/08/19 18 Tachycardia 02/27/2013 06/07/2017 Abdominal pain, other specified site 02/27/2013 06/07/2017 Diarrhea 02/27/2013 06/07/2017 documented as of this encounter (statuses as of 01/06/2022) [facility] History of Past illness Narrative* Problem Noted Date Resolved Date Thyroid mass 01/24/2017 06/07/2017 POTS (postural orthostatic tachycardia syndrome) 09/14/2013 06/07/2017 Muscle tear 04/23/2013 06/07/2017 Orthostatic hypotension 04/23/2013 06/08/19 18 Tachycardia 02/27/2013 06/07/2017 Abdominal pain, other specified site 02/27/2013 06/07/2017 Diarrhea 02/27/2013 06/07/2017 documented as of this encounter (statuses as of 04/21/2022) [facility] History of Past illness Narrative* Problem Noted Date Resolved Date Thyroid mass 01/24/2017 06/07/2017 POTS (postural orthostatic tachycardia syndrome) 09/14/2013 06/07/2017 Muscle tear 04/23/2013 06/07/2017 Orthostatic hypotension 04/23/2013 06/08/19 18 Tachycardia 02/27/2013 06/07/2017 Abdominal pain, other specified site 02/27/2013 06/07/2017 Diarrhea 02/27/2013 06/07/2017 documented as of this encounter (statuses as of 05/19/2022) [facility] of Past illness Narrative* Problem Noted Date Diagnosed Date Resolved Date Thyroid mass 01/24/2017 06/07/2017 POTS (postural orthostatic t achycardia syndrome) 09/14/2013 06/07/2017 Muscle tear 04/23/2013 06/07/2017 Orthostatic hypotension 04/23/201305/24 Tachycardia 02/27/2013 06/07/2017 Abdominal pain, other specified site 02/27/2013 06/07/2017 Diarrhea 02/27/2013 06/07/2017 documented as of this encounter (statuses as of 11/04/2022) [facility] History of Past illness Narrative* Problem Noted Date Diagnosed Date Resolved Date Thyroid mass 01/24/2017 06/07/2017 POTS (postural orthostatic t achycardia syndrome) 09/14/2013 06/07/2017 Muscle tear 04/23/2013 06/07/2017 Orthostatic hypotension 04/23/201305/24 Tachycardia 02/27/2013 06/07/2017 Abdominal pain, other specified site 02/27/2013 06/07/2017 Diarrhea 02/27/2013 06/07/2017 documented as of this encounter (statuses as of 01/02/2023) [facility] of [facility] illness Narrative* Problem Noted Date Diagnosed Date Resolved Date Thyroid mass 01/24/2017 06/07/2017 POTS (postural orthostatic t achycardia syndrome) 09/14/2013 06/07/2017 Muscle tear 04/23/2013 06/07/2017 Orthostatic hypotension 04/23/201305/24 Tachycardia 02/27/2013 06/07/2017 Abdominal pain, other specified site 02/27/2013 06/07/2017 Diarrhea 02/27/2013 06/07/2017 documented as of this encounter (statuses as of 01/24/2023) [facility] History of [facility] illness Narrative* Problem Noted Date Diagnosed Date Resolved Date Thyroid mass 01/24/2017 06/07/2017 POTS (postural orthostatic t achycardia syndrome) 09/14/2013 06/07/2017 Muscle tear 04/23/2013 06/07/2017 Orthostatic hypotension 04/23/201305/24 Tachycardia 02/27/2013 06/07/2017 Abdominal pain, other specified site 02/27/2013 06/07/2017 Diarrhea 02/27/2013 06/07/2017 documented as of this encounter (statuses as of 03/07/2023) [facility] History of Past illness Narrative* Problem Noted Date Diagnosed Date Resolved Date Thyroid mass 01/24/2017 06/07/2017 POTS (postural orthostatic t achycardia syndrome) 09/14/2013 06/07/2017 Muscle tear 04/23/2013 06/07/2017 Orthostatic hypotension 04/23/201305/24 Tachycardia 02/27/2013 06/07/2017 Abdominal pain, other specified site 02/27/2013 06/07/2017 Diarrhea 02/27/2013 06/07/2017 documented as of this encounter (statuses as of 05/16/2023) [facility] note* Diagnosis SI (sacroiliac) joint dysfunction- Primary [...] not elsewhere classified documented in this encounter [facility] note* Diagnosis Acute bilateral low back pain [...] of rib region documented in this encounter [facility] note* Diagnosis Onset Date Resolution Status Tinea versicolor noneactive Rash noneactive [facility] Work Phone: Evaluation note* Diagnosis Sacroiliac pain- [...] not elsewhere classified documented in this encounter [facility] note* Diagnosis Right knee pain, unspecified chronicity- [...] not elsewhere classified [facility] encounter [facility] Diagnosis Onset Date Resolution Status Pes anserinus bursitis of right knee acute [facility] Work Phone: Evaluation note* Diagnosis Sacroiliac pain- [...] not elsewhere classified [facility] encounter [facility] Diagnosis Onset Date Resolution Status Pes anserinus bursitis of right knee acute Pes anserinus bursitis of right knee acute Right knee pain acute Pes anserinus bursitis of right knee acute Right knee pain acute [facility] Work Phone: Evaluation note* Diagnosis Chronic left [...] not elsewhere classified [facility] Diagnosis Onset Date Resolution Status Pes anserinus bursitis of right knee acute Right knee pain acute Pes anserinus bursitis of right knee acute Right knee pain acute Anxiety acute Menopausal hot flushes acute POTS (postural orthostatic tachycardia syndrome) chronic [facility] Work Phone: Evaluation note* Diagnosis Onset Date Resolution Status Pes anserinus bursitis of right knee acute Right knee pain acute Pes anserinus bursitis of right knee acute Right knee pain acute Anxiety acute Menopausal hot flushes acute POTS (postural orthostatic tachycardia syndrome) chronic Female climacteric state acu te [facility] Work Phone: Evaluation note* Diagnosis Onset Date Resolution Status Female climacteric state acu te Cellulitis acute Anxiety chronic Menopausal hot flushes chron ic [facility] Work Phone: Evaluation note* Diagnosis Neck pain- [...] not elsewhere classified [facility] encounter [facility] Diagnosis Neck pain- Primary Cervicalgia [...] dysfunction of rib [facility] Diagnosis Chronic right shoulder pain- Primary [...] of upper extremity [facility] Diagnosis Tendinopathy of gluteus medius- [...] not elsewhere classified [facility]* Diagnosis Neck pain- Primary Cervicalgia Tendinopathy [...] of upper extremity [facility] Diagnosis Onset Date Resolution Status Preventative health care acu te Tinnitus acute Anxiety chronic POTS (postural orthostatic tachycardia syndrome) chronic [facility] Work Phone: Evaluation note* Diagnosis Chronic right [...] not elsewhere classified [facility] Diagnosis Onset Date Resolution Status Preventative health care acu te Tinnitus acute Anxiety chronic POTS (postural orthostatic tachycardia syndrome) chronic Polyp of cervix uteri acute Postmenopausal bleeding acut e Encounter for routine gynecological examination noneactive [facility] Work Phone: Evaluation note* Diagnosis Finger pain, [...] of upper extremity [facility] Foreign body of right hand, initial encounter- Primary Injury of right hand, initial encounter Need for tetanus booster Need for prophylactic vaccination with tetanus toxoid alone [facility] Diagnosis Puncture wound of right hand with foreign body, initial encounter- Primary Injury of right hand, initial encounter [facility] Diagnosis Puncture wound of right hand with foreign body, subsequent encounter- Primary [facility] Diagnosis Chronic right SI joint [...] of upper extremity [facility] Diagnosis Finger pain, right- Primary [...] of upper extremity [facility] Diagnosis Puncture wound of right hand with foreign body, subsequent encounter- Primary [facility] Diagnosis Chronic right SI joint pain- [...] dysfunction of rib [facility] Diagnosis Ischial bursitis of right side- [...] of upper extremity [facility] Diagnosis Pain- Primary Generalized pain [facility] Diagnosis Ischial bursitis of right side- [...] not elsewhere classified [facility] Diagnosis Ischial bursitis of right side- Primary [facility] Diagnosis Pain Generalized pain [facility] Diagnosis Ischial bursitis of right side [facility] Diagnosis Influenza- Primary Influenza with other respiratory manifestations POTS (postural orthostatic tachycardia syndrome) Tachycardia, unspecified [facility] Diagnosis Ischial bursitis of right side- Primary [facility] Diagnosis Ischial bursitis of right side- Primary [facility] Diagnosis Rib pain on left [...] of upper extremity [facility] Diagnosis Hamstring tendinitis of right thigh- Primary Pain of right hip Ischial bursitis of right side [facility] Diagnosis Chronic right SI joint [...] not elsewhere classified [facility] Diagnosis Ischial bursitis of right side Hamstring tendinitis of right thigh [facility] Diagnosis Acetabular labrum tear, right, subsequent encounter- Primary [facility] Diagnosis Acetabular labrum tear, right, subsequent encounter [facility] Diagnosis Chronic right SI joint pain- Primary Disorders of sacrum Right hip pain Pain in joint, pelvic region and thigh Neck pain Cervicalgia Somatic dysfunction of head region Somatic dysfunction of cervical region Nonallopathic lesion of cervical region, not elsewhere classified Somatic dysfunction of thoracic region Nonallopathic lesion of thoracic region, not elsewhere classified Somatic dysfunction of sacral region Nonallopathic lesion of sacral region, not elsewhere classified Somatic dysfunction of pelvis region Nonallopathic lesion of pelvic region, not elsewhere classified [facility] Diagnosis Neck pain- Primary Cervicalgia Chronic right SI joint pain Disorders of sacrum Right hip pain Pain in joint, pelvic region and thigh Somatic dysfunction of head region Somatic dysfunction [...] lesion of pelvic region, not elsewhere classified Acetabular labrum tear, right, subsequent encounter documented in this encounter [facility] Discharge instructionsAmbulatory Orders* TRANSCRIPTION MANAGER Location: None Selected [facility] Work Phone: [facility] for referral (narrative)* Diagnostic Procedure Only (Routine) - Authorized Specialty Diagnoses / Procedures Referred By Contac t Referred To Contact XR IMAGING Diagnoses Pain Procedures XR HIP GENERAL 3V PELV/AP/LAT RIGHT RADEX HIP UNILATERAL WITH PELVIS 2-3 VIEWS Sarah Wynn MD [address] [phone] [facility] [place] [address] Referral ID Status Reason Start Date Expiration Date Visits Requested Visits Authorized [id number] Authorized Auto-Generat ed Referral 04/01/2024 05/01/2025 1 1 [facility] [place] for referral (narrative)* Diagnostic Procedure Only (Routine) - New Request Specialty Diagnoses / Procedures Referred By Contac t Referred To Contact US IMAGING Diagnoses Ischial bursitis of right side Procedures US ASP/INJ HIP JT/BURSA RIGHT ARTHROCENTESIS ASPIR&/INJ MAJOR JT/BURSA W/US Sarah Wynn MD [address] [phone] [place] [address] Referral ID Status Reason Start Date Expiration Date Visits Requested Visits Authorized [id number] New Request Auto-Generat ed Referral 04/16/2024 05/16/2025 1 1 [facility] [place] for referral (narrative)* Diagnostic Procedure Only (Routine) - Closed Specialty Diagnoses / Procedures Referred By Contac t Referred To Contact XR IMAGING Diagnoses Pain Procedures XR HIP GENERAL 3V PELV/AP/LAT RIGHT RADEX HIP UNILATERAL WITH PELVIS 2-3 VIEWS Sarah Wynn MD [address] [place] [address] Xr Imaging [facility] Referral ID Status Reason Start Date Expiration Date V isits Requested Visits Authorized [id number] Closed Auto-Generate d Referral 04/01/2024 05/01/2025 1 1 [facility] [place] for visit Narrative* Diagnostic Procedure Only (Routine) - Closed Specialty Diagnoses / Procedures Referred By Contac t Referred To Contact XR IMAGING Diagnoses Pain Procedures XR HIP GENERAL 3V PELV/AP/LAT RIGHT RADEX HIP UNILATERAL WITH PELVIS 2-3 VIEWS Sarah Wynn MD [address] [place] [address] Xr Imaging [facility] Referral ID Status Reason Start Date Expiration Date V isits Requested Visits Authorized [id number] Closed Auto-Generate d Referral 04/01/2024 05/01/2025 1 1 [facility] for visit Narrative* Diagnostic Procedure Only (Routine) - Closed Specialty Diagnoses / Procedures Referred By Contac t Referred To Contact US IMAGING Diagnoses Ischial bursitis of right side Procedures US ASP/INJ HIP JT/BURSA RIGHT ARTHROCENTESIS ASPIR&/INJ MAJOR JT/BURSA W/US Sarah Wynn MD [address] [place] [address] Phone: tel: fax: [place] [address] Referral ID Status Reason Start Date Expiration Date V isits Requested Visits Authorized [id number] Closed Auto-Generate d Referral 04/16/2024 05/16/2025 1 1 [facility]* Diagnostic Procedure Only (Routine) - Closed Specialty Diagnoses / Procedures Referred By Contac t Referred To Contact US IMAGING Diagnoses Ischial bursitis of right side Hamstring tendinitis of right thigh Procedures US HIP RIGHT US COMPL JOINT R-T W/IMAGE DOCUMENTATION Sarah Wynn MD [address] [place] [address] Phone: tel: fax: [place] [address] Referral ID Status Reason Start Date Expiration Date V isits Requested Visits Authorized [id number] Closed Auto-Generate d Referral 07/30/2024 08/29/2025 1 1 [facility] Summary Purpose Family History No Family History Records Found Relationship Condition Age at Onset Recorded Date/T mateo mother Cardiac disease Unknown Hypertension Unknown father Hypertension Unknown Arthritis Unknown Anxiety Unknown Hyperlipidemia Unknown grandfather Myocardial infarction 60 aunt Myocardial infarction 75 Chronic lymphocytic leukemia Unknown Advance Directives No Advanced Directives Records FoundDocuments on File Type Date Recorded 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 Reason for Visit Preventative health care [...] both ears June 05, 2024 4 :55pm Chief Complaint Admit Date 1 Y FU June 05, 2024 4:5 5pm Left Axillary Pain June 25, 2024 8:36 am PRE OP September 10, 2024 6:51 am Reason for Visit Admit Date Health care maintenance June 05, 2024 4:55pm Allergies June 05, 2024 4:5 5pm IBS (irritable bowel syndrome) May 4:55pm Menopausal hot flushes June 05, 2024 4:55pm Pain in left axilla June 05, 2024 4:5 5pm POTS (postural orthostatic tachycardia s yndrome) June 05, 2024 4:55pm Tinnitus of both ears June 05, 2024 4 :55pm Chief Complaint Admit Date 1 Y FU June 05, 2024 4:5 5pm Left Axillary Pain June 25, 2024 8:36 am PRE OP September 10, 2024 6:51 am PRE OP September 10, 2024 7:01 am 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, 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 2:47p m Reason for Visit Admit Date Allergies June 05, 2024 4:5 5pm IBS (irritable bowel syndrome) May 4:55pm Menopausal hot flushes June 05, 2024 4:55pm Pain in left axilla June 05, 2024 4:5 5pm POTS (postural orthostatic tachycardia s yndrome) June 05, 2024 4:55pm Tinnitus of both ears June 05, 2024 4 :55pm Health care maintenance June 05, 2024 4:55pm Encounter for routine gynecological exam ination September 29, 2024 2:47pm Reason for Referral Specialty Diagnoses / Procedures Referred By Lorraine gore Referred To Contact [facility] Diagnoses Pes anserine bursitis Right knee pain, unspecified chronicity Procedures CONSULT TO PHYSICAL THERAPY PHYSICAL THERAPY EVALUATION HIGH COMPLEX 45 MINS Buzz Charles DO [address] [place] [address] [facility] [address] [address] Referral ID Status Reason Start Date Expiration Date Visits Requested Visits Authorized [id number] Pending Review Auto-Generat ed Referral 2 01/06/2023 1 1 Specialty Diagnoses / Procedures Referred By Contac t Referred To Contact Orthopedics Diagnoses Injury of right hand, initial encounter Procedures CONSULT TO ORTHOPAEDICS OFFICE/OUTPATIENT [facility] MDM 60 MINUTES Antonio Vivar APRN.WELFARE OFFICER [address] [place] [address] Referral ID Status Reason Start Date Expiration Date Visits Requested Visits Authorized [id number] Pending Review PCP Requested Referral 10/25/2023 10/24/2024 1 1 Specialty Diagnoses / Procedures Referred By Contac t Referred To Contact XR IMAGING Diagnoses Injury of right hand, initial encounter Procedures XR HAND GENERAL 3V PA/LAT/OBL RIGHT RADEX HAND MINIMUM 3 VIEWS Antonio Vivar APRN.WELFARE OFFICER [address] [place] [address] [place] [address] Referral ID Status Reason Start Date Expiration Date V isits Requested Visits Authorized [id number] Closed Auto-Generate d Referral 10/25/2023 11/23/2024 1 1 Additional Source Comments INFORMATION SOURCE (unrecogn ized section and content) DATE CREATED AUTHOR 09/14/2017 [facility] DATE CREATED AUTHOR AUTHOR'S ORGANIZ ATION 09/18/2017 [facility] DATE CREATED AUTHOR AUTHOR'S ORGANIZ ATION 06/27/2018 [facility] DATE CREATED AUTHOR AUTHOR'S ORGANIZ ATION 12/09/2023 [facility] DATE CREATED AUTHOR AUTHOR'S ORGANIZ ATION 10/03/2024 [facility] DATE CREATED AUTHOR AUTHOR'S ORGANIZ ATION 11/02/2024 [facility] DATE CREATED AUTHOR AUTHOR'S ORGANIZ ATION 11/16/2024 [facility] Source Comments (unrecognize d section and content) In the event this informatio n is protected by the Federal Confidentiality of Alcohol and Drug Abuse Patient Records regulations: The Federal rules restrict any use of the information to criminally investigate or prosecute any alcohol or drug abuse patient.[facility] HospitalIn the event this information is protected by the Federal Confidentiality of Alcohol and Drug Abuse Patient Records regulations: The Federal rules restrict any use of the information to criminally investigate or prosecute any alcohol or drug abuse patient.[facility] HospitalIn the event this information is protected by the Federal Confidentiality of Alcohol and Drug Abuse Patient Records regulations: The Federal rules restrict any use of the information to criminally investigate or prosecute any alcohol or drug abuse patient.[facility] HospitalIn the event this information is protected by the Federal Confidentiality of Alcohol and Drug Abuse Patient Records regulations: The Federal rules restrict any use of the information to criminally investigate or prosecute any alcohol or drug abuse patient.[facility] HospitalIn the event this information is protected by the Federal Confidentiality of Alcohol and Drug Abuse Patient Records regulations: The Federal rules restrict any use of the information to criminally investigate or prosecute any alcohol or drug abuse patient.[facility] HospitalIn the event this information is protected by the Federal Confidentiality of Alcohol and Drug Abuse Patient Records regulations: The Federal rules restrict any use of the information to criminally investigate or prosecute any alcohol or drug abuse patient.[facility] HospitalIn the event this information is protected by the Federal Confidentiality of Alcohol and Drug Abuse Patient Records regulations: The Federal rules restrict any use of the information to criminally investigate or prosecute any alcohol or drug abuse patient.[facility] HospitalIn the event this information is protected by the Federal Confidentiality of Alcohol and Drug Abuse Patient Records regulations: The Federal rules restrict any use of the information to criminally investigate or prosecute any alcohol or drug abuse patient.[facility] HospitalIn the event this information is protected by the Federal Confidentiality of Alcohol and Drug Abuse Patient Records regulations: The Federal rules restrict any use of the information to criminally investigate or prosecute any alcohol or drug abuse patient.[facility] HospitalIn the event this information is protected by the Federal Confidentiality of Alcohol and Drug Abuse Patient Records regulations: The Federal rules restrict any use of the information to criminally investigate or prosecute any alcohol or drug abuse patient.[facility] HospitalIn the event this information is protected by the Federal Confidentiality of Alcohol and Drug Abuse Patient Records regulations: The Federal rules restrict any use of the information to criminally investigate or prosecute any alcohol or drug abuse patient.[facility] HospitalIn the event this information is protected by the Federal Confidentiality of Alcohol and Drug Abuse Patient Records regulations: The Federal rules restrict any use of the information to criminally investigate or prosecute any alcohol or drug abuse patient.[facility] HospitalIn the event this information is protected by the Federal Confidentiality of Alcohol and Drug Abuse Patient Records regulations: The Federal rules restrict any use of the information to criminally investigate or prosecute any alcohol or drug abuse patient.[facility] HospitalIn the event this information is protected by the Federal Confidentiality of Alcohol and Drug Abuse Patient Records regulations: The Federal rules restrict any use of the information to criminally investigate or prosecute any alcohol or drug abuse patient.[facility] HospitalIn the event this information is protected by the Federal Confidentiality of Alcohol and Drug Abuse Patient Records regulations: The Federal rules restrict any use of the information to criminally investigate or prosecute any alcohol or drug abuse patient.[facility] HospitalIn the event this information is protected by the Federal Confidentiality of Alcohol and Drug Abuse Patient Records regulations: The Federal rules restrict any use of the information to criminally investigate or prosecute any alcohol or drug abuse patient.[facility] HospitalIn the event this information is protected by the Federal Confidentiality of Alcohol and Drug Abuse Patient Records regulations: The Federal rules restrict any use of the information to criminally investigate or prosecute any alcohol or drug abuse patient.[facility] HospitalIn the event this information is protected by the Federal Confidentiality of Alcohol and Drug Abuse Patient Records regulations: The Federal rules restrict any use of the information to criminally investigate or prosecute any alcohol or drug abuse patient.[facility] HospitalIn the event this information is protected by the Federal Confidentiality of Alcohol and Drug Abuse Patient Records regulations: The Federal rules restrict any use of the information to criminally investigate or prosecute any alcohol or drug abuse patient.[facility] HospitalIn the event this information is protected by the Federal Confidentiality of Alcohol and Drug Abuse Patient Records regulations: The Federal rules restrict any use of the information to criminally investigate or prosecute any alcohol or drug abuse patient.[facility] HospitalIn the event this information is protected by the Federal Confidentiality of Alcohol and Drug Abuse Patient Records regulations: The Federal rules restrict any use of the information to criminally investigate or prosecute any alcohol or drug abuse patient.[facility] HospitalIn the event this information is protected by the Federal Confidentiality of Alcohol and Drug Abuse Patient Records regulations: The Federal rules restrict any use of the information to criminally investigate or prosecute any alcohol or drug abuse patient.[facility] HospitalIn the event this information is protected by the Federal Confidentiality of Alcohol and Drug Abuse Patient Records regulations: The Federal rules restrict any use of the information to criminally investigate or prosecute any alcohol or drug abuse patient.[facility] HospitalIn the event this information is protected by the Federal Confidentiality of Alcohol and Drug Abuse Patient Records regulations: The Federal rules restrict any use of the information to criminally investigate or prosecute any alcohol or drug abuse patient.[facility] HospitalIn the event this information is protected by the Federal Confidentiality of Alcohol and Drug Abuse Patient Records regulations: The Federal rules restrict any use of the information to criminally investigate or prosecute any alcohol or drug abuse patient.[facility] HospitalIn the event this information is protected by the Federal Confidentiality of Alcohol and Drug Abuse Patient Records regulations: The Federal rules restrict any use of the information to criminally investigate or prosecute any alcohol or drug abuse patient.[facility] HospitalIn the event this information is protected by the Federal Confidentiality of Alcohol and Drug Abuse Patient Records regulations: The Federal rules restrict any use of the information to criminally investigate or prosecute any alcohol or drug abuse patient.[facility] HospitalIn the event this information is protected by the Federal Confidentiality of Alcohol and Drug Abuse Patient Records regulations: The Federal rules restrict any use of the information to criminally investigate or prosecute any alcohol or drug abuse patient.[facility] HospitalIn the event this information is protected by the Federal Confidentiality of Alcohol and Drug Abuse Patient Records regulations: The Federal rules restrict any use of the information to criminally investigate or prosecute any alcohol or drug abuse patient.[facility] HospitalIn the event this information is protected by the Federal Confidentiality of Alcohol and Drug Abuse Patient Records regulations: The Federal rules restrict any use of the information to criminally investigate or prosecute any alcohol or drug abuse patient.[facility] HospitalIn the event this information is protected by the Federal Confidentiality of Alcohol and Drug Abuse Patient Records regulations: The Federal rules restrict any use of the information to criminally investigate or prosecute any alcohol or drug abuse patient.[facility] HospitalIn the event this information is protected by the Federal Confidentiality of Alcohol and Drug Abuse Patient Records regulations: The Federal rules restrict any use of the information to criminally investigate or prosecute any alcohol or drug abuse patient.[facility] HospitalIn the event this information is protected by the Federal Confidentiality of Alcohol and Drug Abuse Patient Records regulations: The Federal rules restrict any use of the information to criminally investigate or prosecute any alcohol or drug abuse patient.[facility] HospitalIn the event this information is protected by the Federal Confidentiality of Alcohol and Drug Abuse Patient Records regulations: The Federal rules restrict any use of the information to criminally investigate or prosecute any alcohol or drug abuse patient.[facility] HospitalIn the event this information is protected by the Federal Confidentiality of Alcohol and Drug Abuse Patient Records regulations: The Federal rules restrict any use of the information to criminally investigate or prosecute any alcohol or drug abuse patient.[facility] HospitalIn the event this information is protected by the Federal Confidentiality of Alcohol and Drug Abuse Patient Records regulations: The Federal rules restrict any use of the information to criminally investigate or prosecute any alcohol or drug abuse patient.[facility] HospitalIn the event this information is protected by the Federal Confidentiality of Alcohol and Drug Abuse Patient Records regulations: The Federal rules restrict any use of the information to criminally investigate or prosecute any alcohol or drug abuse patient.[facility] HospitalIn the event this information is protected by the Federal Confidentiality of Alcohol and Drug Abuse Patient Records regulations: The Federal rules restrict any use of the information to criminally investigate or prosecute any alcohol or drug abuse patient.[facility] HospitalIn the event this information is protected by the Federal Confidentiality of Alcohol and Drug Abuse Patient Records regulations: The Federal rules restrict any use of the information to criminally investigate or prosecute any alcohol or drug abuse patient.[facility] HospitalIn the event this information is protected by the Federal Confidentiality of Alcohol and Drug Abuse Patient Records regulations: The Federal rules restrict any use of the information to criminally investigate or prosecute any alcohol or drug abuse patient.[facility] HospitalIn the event this information is protected by the Federal Confidentiality of Alcohol and Drug Abuse Patient Records regulations: The Federal rules restrict any use of the information to criminally investigate or prosecute any alcohol or drug abuse patient.[facility] HospitalIn the event this information is protected by the Federal Confidentiality of Alcohol and Drug Abuse Patient Records regulations: The Federal rules restrict any use of the information to criminally investigate or prosecute any alcohol or drug abuse patient.[facility] HospitalIn the event this information is protected by the Federal Confidentiality of Alcohol and Drug Abuse Patient Records regulations: The Federal rules restrict any use of the information to criminally investigate or prosecute any alcohol or drug abuse patient.[facility] HospitalIn the event this information is protected by the Federal Confidentiality of Alcohol and Drug Abuse Patient Records regulations: The Federal rules restrict any use of the information to criminally investigate or prosecute any alcohol or drug abuse patient.[facility] HospitalIn the event this information is protected by the Federal Confidentiality of Alcohol and Drug Abuse Patient Records regulations: The Federal rules restrict any use of the information to criminally investigate or prosecute any alcohol or drug abuse patient.[facility] HospitalIn the event this information is protected by the Federal Confidentiality of Alcohol and Drug Abuse Patient Records regulations: The Federal rules restrict any use of the information to criminally investigate or prosecute any alcohol or drug abuse patient.[facility] HospitalIn the event this information is protected by the Federal Confidentiality of Alcohol and Drug Abuse Patient Records regulations: The Federal rules restrict any use of the information to criminally investigate or prosecute any alcohol or drug abuse patient.[facility] Reason for Visit (unrecogniz ed section [...] Reason Comments si pain Reason Comments Trauma [facility]-was at a pts serafin e when lawn chair collapsed and a screw went through her R palm x 1 hr ago Specialty Diagnoses / Procedures Referred By Contac t Referred To Contact Internal Medicine / [facility] Diagnoses Right hand injury Procedures REFERRAL TO [facility] FINANCIAL COUNSELOR EST SAME DAY Self [facility] [address] [place] [address] Referral ID Status Reason Start Date Expiration Date V isits Requested Visits Authorized [id number] Outside PCP 10/25/2023 12/24/2023 1 1 Reason Comments ER F/U [facility] 10/24 W/C Reason Comments New Pain Specialty Diagnoses / Procedures Referred By Contac t Referred To Contact Orthopedics / ORTHOPAEDIC SURGERY Diagnoses Rt hand/foreign body, [facility] 10/24 Procedures NEW PATIENT Self Easton Parker MD [address] [place] [address] Referral ID Status Reason Start Date Expiration Date Visits Re quested Visits Authorized [id number] Closed 10/26/2023 10/26/2023 1 1 Reason Comments Established Patient Specialty Diagnoses / Procedures Referred By Contac t Referred To Contact ORTHOPAEDIC SURGERY Diagnoses RIGHT HAND Procedures REFERRAL TO [facility] FINANCIAL COUNSELOR Easton Parker MD [address] [facility] [address] [place] [address] Easton Parker MD [address] [place] [address] [place] [address] Referral ID Status Reason Start Date Expiration Date Visits Re quested Visits Authorized [id number] Closed 11/02/2023 11/02/2023 1 1 Reason Comments SI Joint Pain Right side. Specialty Diagnoses / Procedures Referred By Contac t Referred To Contact XR IMAGING Diagnoses Injury of right hand, initial encounter Procedures XR HAND GENERAL 3V PA/LAT/OBL RIGHT RADEX HAND MINIMUM 3 VIEWS Antonio Vivar APRN.WELFARE OFFICER [address] [place] [address] [place] [address] Referral ID Status Reason Start Date Expiration Date V isits Requested Visits Authorized [id number] Closed Auto-Generate d Referral 10/25/2023 10/25/2023 1 1 Reason Comments si joint pain Reason Comments Established Patient 1 month follow up Specialty Diagnoses / Procedures Referred By Contac t Referred To Contact Orthopedics / ORTHOPAEDIC SURGERY Diagnoses 1 mo f/u Rt hand Procedures EST PATIENT Self Easton Parker MD [address] [facility] [address] [place] [address] Referral ID Status Reason Start Date Expiration Date Visits Requested Visits Authorized [id number] Outside PCP Patient Cleared - Admin/Chair man/Directo [...] Comments MRI Report US F/U AND MRI Reason Comments Rad Arthrogram A21 Reason Comments Hip Pain Low Back Pain SI joint Reason Comments SI joint pain Right side Care Teams (unrecognized sec tion and content) Event Operations Manager Relationship Specialty Start Date End Date Ama Hamilton MD PCP - General Internal Medicine 01/24/17 Estefany Prado MD [address] [place] [address] Endocrinology 05/10/17 Tacho Del Castillo DO [address] [place], [place] [id number] Neurology 05/10/17 Event Operations Manager Relationship Specialty Start Date End Date Ama Hamilton MD PCP - General Internal Medicine 01/24/17 Estefany Prado MD [address] [place] [address] Endocrinology 05/10/17 Tacho Del Castillo, [address] [place], [place] [id number] Neurology 05/10/17 Event Operations Manager Relationship Specialty Start Date End Date Ama Hamilton MD PCP - General Internal Medicine 01/24/17 Estefany Prado MD [address] [place] [address] Endocrinology 05/10/17 Tacho Del Castillo, [address] [place] [address] Neurology 05/10/17 Team Status: Active Member Role Status Dates Dr. Ama Hamilton MD Primary Care Provider Active Team Status: Inactive Member Role Status Dates Dr. Ama Hamilton MD Primary Care Provider, Refer ring Provider Active KHALIDA Garcia Attending Provider Active Team Status: Inactive Member [...] Active Nico GAXIOLA, PA Attending Provider Active Event Operations Manager Relationship Specialty Start Date End Date Ama Hamilton MD PCP - General Internal Medicine 01/24/17 Estefany Prado MD [address] [place], [place] [id number] Endocrinology 05/10/17 Tacho Del Castillo DO [address] [place], [place] [id number] Neurology 05/10/17 Team Status: Inactive Member Role Status Dates Dr. Ama Hamilton MD Primary Care P rovider, Attending Provider, Referring Provider Active Team Status: [...] DO Attending Provider, Refe rring Provider Active Event Operations Manager Relationship Specialty Start Date End Date Ama Hamilton MD PCP - General Internal Medicine 01/24/17 Estefany Prado MD [address] [place], [place] [id number] Endocrinology 05/10/17 Tacho Del Castillo DO [address] [place], [place] [phone] Neurology 05/10/17 Event Operations Manager Relationship Specialty Start Date End Date Ama Hamilton MD PCP - General Internal Medicine 01/24/17 Estefany Prado MD [address] [place] [address] Endocrinology 05/10/17 Tacho Del Castillo DO [address] [place] [address] Neurology 05/10/17 Event Operations Manager Relationship Specialty Start Date End Date Ama Hamilton MD PCP - General Internal Medicine 01/24/17 Estefany Prado MD [address] [place] [address] Endocrinology 05/10/17 Tacho Del Castillo DO [address] [place] [address] Neurology 05/10/17 Event Operations Manager Relationship Specialty Start Date End Date Ama Hamilton MD PCP - General Internal Medicine 01/24/17 Estefany Prado MD [address] [place] [address] Endocrinology 05/10/17 Tacho Del Castillo DO [address] [place], [place] [phone] Neurology 05/10/17 Team Status: Inactive Member Role Status Dates Dr. Ama Hamilton MD Primary Care Provider Active WARNER MARADIAGA Attending Provider Active Event Operations Manager Relationship Specialty Start Date End Date Ama Hamilton MD PCP - General Internal Medicine 01/24/17 Estefany Prado MD [address] [place] [address] Endocrinology 05/10/17 Tacho Del Castillo DO [address] [place] [address] Neurology 05/10/17 Event Operations Manager Relationship Specialty Start Date End Date Ama Hamilton MD PCP - General Internal Medicine 01/24/17 Estefany Prado MD [address] [place] [address] Endocrinology 05/10/17 Tacho Del Castillo DO [address] [place] [address] Neurology 05/10/17 Event Operations Manager Relationship Specialty Start Date End Date Ama Hamilton MD PCP - General Internal Medicine 01/24/17 Estefany Prado MD [address] [place] [address] Endocrinology 05/10/17 Tacho Del Castillo DO [address] [place] [address] Neurology 05/10/17 Event Operations Manager Relationship Specialty Start Date End Date Ama Hamilton MD PCP - General Internal Medicine 01/24/17 Estefany Prado MD [address] [place] [address] Endocrinology 05/10/17 Tacho Del Castillo DO [address] [place] [address] Neurology 05/10/17 Event Operations Manager Relationship Specialty Start Date End Date Ama Hamilton MD PCP - General Internal Medicine 01/24/17 Estefany Prado MD [address] [place] [address] Endocrinology 05/10/17 Tacho Del Castillo DO [address] [place] [address] Neurology 05/10/17 Event Operations Manager Relationship Specialty Start Date End Date Ama Hamilton MD PCP - General Internal Medicine 01/24/17 Estefany Prado MD [address] [place] [address] Endocrinology 05/10/17 Tacho Del Castillo DO [address] [place] [address] Neurology 05/10/17 Event Operations Manager Relationship Specialty Start Date End Date Ama Hamilton MD PCP - General Internal Medicine 01/24/17 Estefany Prado MD [address] [place] [address] Endocrinology 05/10/17 Tacho Del Castillo DO [address] [place] [address] Neurology 05/10/17 Event Operations Manager Relationship Specialty Start Date End Date Ama Hamilton MD PCP - General Internal Medicine 01/24/17 Estefany Prado MD [address] [place] [address] Endocrinology 05/10/17 Tacho Del Castillo DO [address] [place] [address] Neurology 05/10/17 Event Operations Manager Relationship Specialty Start Date End Date Ama Hamilton MD PCP - General Internal Medicine 01/24/17 Estefany Prado MD [address] [place] [address] Endocrinology 05/10/17 Tacho Del Castillo DO [address] [place] [address] Neurology 05/10/17 Event Operations Manager Relationship Specialty Start Date End Date Ama Hamilton MD PCP - General Internal Medicine 01/24/17 Estefany Prado MD [address] [place] [address] Endocrinology 05/10/17 Tacho Del Castillo DO [address] [place] [address] Neurology 05/10/17 Event Operations Manager Relationship Specialty Start Date End Date Ama Hamilton MD PCP - General Internal Medicine 01/24/17 Estefany Prado MD [address] [place] [address] Endocrinology 05/10/17 Tacho Del Castillo DO [address] [place] [address] Neurology 05/10/17 Event Operations Manager Relationship Specialty Start Date End Date Ama Hamilton MD PCP - General Internal Medicine 01/24/17 Estefany Prado MD [address] [place] [address] Endocrinology 05/10/17 Tacho Del Castillo DO [address] [place] [address] Neurology 05/10/17 Event Operations Manager Relationship Specialty Start Date End Date Ama Hamilton MD PCP - General Internal Medicine 01/24/17 Estefany Prado MD [address] [place] [address] Endocrinology 05/10/17 Tacho Del Castillo DO [address] [place] [address] Neurology 05/10/17 Event Operations Manager Relationship Specialty Start Date End Date Ama Hamilton MD PCP - General Internal Medicine 01/24/17 Estefany Prado MD [address] [place] [address] Endocrinology 05/10/17 Tacho Del Castillo DO [address] [place] [address] Neurology 05/10/17 Event Operations Manager Relationship Specialty Start Date End Date Ama Hamilton MD PCP - General Internal Medicine 01/24/17 Estefany Prado MD [address] [facility] [place] [address] Endocrinology 05/10/17 Tacho Del Castillo DO [address] [facility] [place] [address] Neurology 05/10/17 Team Status: Inactive Member Role [...] June 25, 2024 End: June 25, 2024 Event Operations Manager Relationship Specialty Start Date End Date Ama Hamilton MD PCP - General Internal Medicine 01/24/17 Estefany Prado MD [address] [id number] Endocrinology 05/10/17 Tacho Del Castillo DO [address] [place] [address] Neurology 05/10/17 Team Status: Inactive Member Role Status Dates Dr. Ama Hamilton MD Primary Care Provider Active Start: September 10, 2024 End: September 10, 2024 Dr. Fili Johnson MD Attending Provider Active Start: September 10, 2024 End: September 10, 2024 Dr. Fili Johnson MD Referring Provider Active Start: September 10, 2024 End: September 10, 2024 Team Status: Active Member Role/Relationship Status Dates Dr. Ama Hamilton MD Primary Care Provider Active Team Status: Inactive Member Role/Relationship Status Dates Dr. Ama Hamilton MD Primary Care Provider Active Start: June 05, 2024 End: June 05, 2024 Dr. Ama Hamilton MD Attending Provider Active Start: June 05, 2024 End: June 05, 2024 Dr. Ama Hamilton MD Referring Provider Active Start: June 05, 2024 End: June 05, 2024 Team Status: Inactive Member Role/Relationship Status Dates Dr. Ama Hamilton MD Primary Care Provider Active Start: June 25, 2024 End: June 25, 2024 Dr. Ama Hamilton MD Attending Provider Active Start: June 25, 2024 End: June 25, 2024 Dr. Ama Hamilton MD Referring Provider Active Start: June 25, 2024 End: June 25, 2024 Team Status: Inactive Member Role/Relationship Status Dates Dr. Ama Hamilton MD Primary Care Provider Active Start: September 10, 2024 End: September 10, 2024 Dr. Fili Johnson MD Attending Provider Active Start: September 10, 2024 End: September 10, 2024 Dr. Fili Johnson MD Referring Provider Active Start: September 10, 2024 End: September 10, 2024 Team Status: Active Member Role/Relationship Status Dates Dr. Ama Hamilton MD Primary Care Provider Active Start: September 10, 2024 End: September 10, 2024 Dr. Carmelo Adams MD Attending Provider Active S tart: September 10, 2024 End: September 10, 2024 Dr. Fili Johnson MD Referring Provider Active Start: September 10, 2024 End: September 10, 2024 Team Status: Inactive Member Role/Relationship Status Dates Dr. Ama Hamilton MD Primary Care Provider Active Start: September 29, 2024 End: September 29, 2024 Dr. Ama Hamilton MD Referring Provider Active Start: September 29, 2024 End: September 29, 2024 Dr. Natalya Schaffer DO Attending Provider Activ e Start: September 29, 2024 End: September 29, 2024 Event Operations Manager Relationship Specialty Start Date End Date Ama Hamilton MD PCP - General Internal Medicine 01/24/17 Estefany Prado MD [address] [place] [address] Endocrinology 05/10/17 Tacho Del Castillo DO [address] [place], [place] [id number] Neurology 05/10/17 Event Operations Manager Relationship Specialty Start Date End Date Ama Hamilton MD PCP - General Internal Medicine 01/24/17 Estefany Prado MD [address] [place] [address] Endocrinology 05/10/17 Tacho Del Castillo DO [address] [place] [address] Neurology 05/10/17 Event Operations Manager Relationship Specialty Start Date End Date Ama Hamilton MD PCP - General Internal Medicine 01/24/17 Estefany Prado MD [address] [facility] [place] [address] Endocrinology 05/10/17 Tacho Del Castillo DO [address] [facility] [place] [address] Neurology 05/10/17 Goals (unrecognized section and content) [...] BE BASED ON THE PRIMARY CLINICAL RECORDS. [facility] provides no warranty or guarantee of the accuracy or completeness of information in this document.
[2024-11-16 15:00] LABS: Hematocrit 41.7 % (37-47); Hemoglobin 14.1 g/dL (12.0-15.0); Immature Granulocytes Count 0.020 X10^3/uL (0.0-0.0); Mean Corp Hgb Conc 33.8 g/dL (32-36); Mean Corpuscular Volume 96.3 fL (81-99); Mean Platelet Vol. 9.9 fl (6.2-12.0); NRBC Flagged by Analyzer 0 % (0-5); Platelet Count 287 K/mm3 (150-450); RBC Distribution Width CV 12.5 % (11.6-14.6); RBC Distribution Width SD 44.9 fl (35.1-43.9); Red Blood Count 4.33 M/mm3 (4.2-5.4); White Blood Count 7.9 K/mm3 (4.4-11.0)
[2024-11-16] MEDS: 0.9% Normal Saline (1000mL) 1,000 ML 999 ML IV (15:06)
[2024-11-16 15:25] LABS: AST(SGOT) 21 U/L (<=31); Alanine Aminotransfer ALT/SGPT 21 U/L (<=34); Albumin, Serum 4.3 g/dL (3.5-5.0); Alkaline Phosphatase 61 U/L (35-104); Anion Gap 10 (5-15); BUN 9 mg/dL (4-19); BUN/Creat Ratio 12.2 RATIO (10-20); Calcium,Total 9.4 mg/dL (7.6-11.0); Carbon Dioxide 27.2 mmol/L (21.0-32.0); Chloride 103 mmol/L (98-108); Estimated Creatinine Clearance 95.09 ml/min (50-250); Globulin 2.2 g/dL (2.2-4.2); Glucose 111 mg/dL (70-99); Potassium 4.0 mmol/L (3.3-5.1)
--- NOTE | 2024-11-16 15:27 | ED.VIS.GI ---
HPI HPI - GI History of Present Illness Chief Complaint: Nausea/Vomiting Informant: patient Abdominal Pain/Flank Pain Onset: Yesterday Context: Gradual Onset Narrative Narrative: Patient had dental implant placed day before yesterday. Yesterday morning, she took a tramadol for the soreness, after that she vomited, and has not been able to stop. Now she has been dry heaving despite not drinking or eating anything. The emesis is nonbilious nonbloody. She denies any abdominal pain. No chest pain or shortness of breath. She denies any fevers or chills. She denies any bloody or purulent discharge from the dental implant in her mouth which was right maxillary, she states it has been sore but not more so than yesterday, feels similar to other implants she has had. She had a normal bowel movement since the procedure wants, but has not gone yet today. She has had multiple prior abdominal surgeries, but none recently. [facility] Medical History Polyp of cervix uteri Stress fracture of right clavicle Cellulitis Pain in left axilla Allergies Tinnitus of both ears Wears contact lenses Post-menopausal Open wound Non-smoker History of stress test History of echocardiogram Cardiology follow-up encounter PONV (postoperative nausea and vomiting) Dermatitis Menopausal hot flushes Anxiety SIBO Gastroenteritis IBS (irritable bowel syndrome) Goiter POTS (postural orthostatic tachycardia syndrome) Home Medications ?Medication ?Instructions ?Recorded ?Last Taken ?Type multivitamin,dc-tpuc-rkvjezzx 27 1 tab PO DAILY 01/29/17 11/05/23 History mg-0.4 mg tablet krill 1,000 mg-omega-3 170 mg-dha 1 cap PO BID 04/19/17 11/05/23 History 50 mg-epa 80 ml-abhjkr-qawil capsule (krill oil) cholecalciferol (vitamin D3) 125 5,000 unit PO DAILY 04/03/19 11/05/23 History mcg (5,000 unit) disintegrating tablet magnesium 30 mg tablet 30 mg PO DAILY 04/15/20 11/05/23 History melatonin 10 mg capsule 5 mg PO HS 04/15/20 11/05/23 History estradiol 0.05 mg/24 hr semiweekly 1 patch transdermal 2XW #24 ea 09/02/24 Unknown Rx transdermal patch (Vivelle-Dot) medroxyprogesterone 2.5 mg tablet 2.5 mg PO DAILY #90 tabs 09/29/24 Unknown Rx gabapentin 300 mg capsule 300 mg PO QHS #90 caps 10/28/24 Unknown Rx ondansetron 8 mg disintegrating 8 mg PO Q8H PRN nausea and 11/16/24 Unknown Rx tablet vomiting #20 tabs promethazine 25 mg rectal 25 mg RECTAL Q6H PRN PRN Nausea ##6 11/16/24 Unknown Rx suppository (Promethegan) promethazine 25 mg tablet 25 mg PO Q6H PRN PRN Nausea #10 11/16/24 Unknown Rx TABLETS Allergy/AdvReac Type Severity Reaction Status Date / Time naproxen sodium (From Aleve) Allergy Severe Hives Verified 11/16/24 13:51 Penicillins (PCN) Allergy Unknown Unknown Verified 11/16/24 13:51 midodrine Allergy Rash Verified 11/16/24 13:51 Sulfa (Sulfonamide AdvReac Severe Other Verified 11/16/24 13:51 Antibiotics) Family History Mother Heart disease Hypertension Father Hypertension Arthritis Anxiety Hyperlipemia Grandfather Myocardial infarction, Onset Age: 60 Aunt Myocardial infarction, Onset Age: 75 CLL (chronic lymphocytic leukemia) Surgical History (Updated 11/16/24 @ 17:[address] Javi Hamlin MD) S/P cervical polypectomy History of thyroid surgery hemangeoma left elbow Mucinous cystadenoma of right ovary Tendinopathy of right gluteal region Tendinopathy of left gluteus medius History of arthroscopy of left knee History of section History of tonsillectomy History of appendectomy left knee scope hemangeoma left elbow Right Mucinous Cystadenoma left glute medius tenson repair right glute medius tendon repair left knee scope History of History of tonsillectomy History of appendectomy Social History adopted: No household members: spouse number of children: 2 current occupational status: employed current occupation: [employer] pets and animals: Yes (1) pets and animals: dog(s) sexually active: Yes Smoking Status: Never smoker alcohol intake: current alcohol intake frequency: holidays/special occasions only substance use type: does not use diet: gluten free and lactose free caffeine: Yes (3) Type: coffee what type of physical activity do you participate in: walking, yoga and aerobics frequency: 5-6 times per week do you feel safe at home: Yes ROS ROS ED Constitutional Constitutional ED: Denies chills or fever(s) Eyes Eyes: Denies change in vision, diplopia or eye pain ENT ENT ED: Reports other Details: Right maxillary dental pain due to recent dental implant placement ; Denies rhinorrhea or sore throat Cardiovascular Cardiovascular: Denies chest pain or palpitations Respiratory/Chest Respiratory/Chest: Denies cough or dyspnea Gastrointestinal Gastrointestinal: Reports nausea and vomiting; Denies abdominal pain or diarrhea Genitourinary Genitourinary ED: Denies dysuria or hematuria Musculoskeletal Musculoskeletal: Denies back pain or neck pain Integumentary Denies abscess or rash Neurologic Neurologic: Denies headache(s), paresthesias or weakness Psychiatric Psychiatric: Denies anxiety or suicidal thoughts EXAM Physical Exam Const Vital Signs: 11/16/24 13:50 Temperature 98.4 F Temperature Source Oral Pulse Rate 69 Respiratory Rate 14 Blood Pressure 134/82 H Blood Pressure Mean 99 Pulse Ox 100 Oxygen Delivery Method Room Air Positive well nourished and well developed General Appearance ED: well developed and NAD HEENT Reports moist mucous membranes HEENT Narrative: Right maxillary molar dental implant site x 1 with intact chromic suture, some mild gingival swelling and tenderness but not severe, no sign of an abscess, no trismus. No discharge or bleeding. normocephalic and atraumatic Eyes PERRL and EOMs intact bilaterally Neck full ROM, no lymphadenopathy and supple Resp normal respiratory effort and clear to auscultation bilaterally Cardio regular rate, regular rhythm and no murmurs GI non-tender and non-distended GI Narrative: Absent bowel sounds Palpation: soft Back/Spine no CVA tenderness General Back: other FROM Extremity normal to inspection General Extremety ED: Negative for edema, pulses abnormal or tenderness General Extremity: Negative for edema or pulses abnormal Neuro oriented x3, CN's II-XII intact bilaterally and no sensory deficits noted Sensorium / Orientation: awake and alert Motor Exam: strength 5/5 throughout Psych mental status grossly normal and thought process normal Skin no rashes or lesions noted and no wounds MDM MDM MDM Narrative Medical decision making narrative: Labs are obtained, she does not have a leukocytosis, there is a bit of a trend toward a left shift but no bands, chemistries are all normal, BUN and creatinine are normal, her lipase is elevated. She does not have any pain to suggest pancreatitis but her abdomen is completely quiet with absent bowel sounds, she has had multiple prior abdominal surgeries, so although I would typically expect a lot of pain, bowel obstruction is in the differential so we obtained a CT of the abdomen/pelvis. It is negative for anything acute showing no signs of a bowel obstruction no signs of pancreatitis. I reviewed the images and the report which I agree with. I think her lipase is elevated for non-pancreatitis reasons. She does not drink alcohol, and she does not have hyperbilirubinemia to suggest biliary obstruction nor does she have symptoms of biliary colic to suggest cholecystitis. In the meantime she is given IV fluids and Reglan. She is a little bit less nauseated, has not vomited, but still too nauseated to try drinking fluids. Although quite a bit of stool was seen in the colon on the CT, I discussed with the patient she had a normal bowel movement yesterday, and she does not feel like she needs to go right now, so this is probably a normal radiographic finding. I also reviewed the images to evaluate for possible basilar infiltrate and lungs, I see none in the lung windows appear normal. She has normal vital signs and does not appear to be septic or to have an infection related to her recent dental procedure. She was put on a Z-Trevin, she did take the first pill but has not had a chance to get the second 1 down yet. It is possible the symptoms are related to that medication and/or the tramadol that she took, or possibly viral infection. Or related to needing to have a bowel movement here soon. Given all of this I think reasonable to treat her symptoms and have her follow-up if symptoms persist. History & Record Review Discussion w/independent historian: Patient and Significant other Lab Data Attestation: I reviewed the patient's lab results. Labs: Laboratory Results - last 24 hr 11/16/24 14:47 WBC 7.9 RBC 4.33 Hgb 14.1 Hct 41.7 MCV 96.3 MCH 32.6 H MCHC 33.8 RDW Std Deviation 44.9 H RDW Coeff of Janice 12.5 Plt Count 287 MPV 9.9 Immature Gran % (Auto) 0.300 Neut % (Auto) 81.2 H Lymph % (Auto) 12.8 L [place] % (Auto) 5.2 Eos % (Auto) 0.1 Baso % (Auto) 0.4 Absolute Neuts (auto) 6.4 Absolute Lymphs (auto) 1.01 Nucleated RBC % 0 Sodium 140 Potassium 4.0 Chloride 103 Carbon Dioxide 27.2 Anion Gap 10 BUN 9 Creatinine 0.72 Estim Creat Clear Calc 95.09 Est GFR (MDRD) Non-Af 98 BUN/Creatinine Ratio 12.2 Glucose 111 H Calcium 9.4 Total Bilirubin 0.81 AST 21 ALT 21 Alkaline Phosphatase 61 Total Protein 6.5 Albumin 4.3 Globulin 2.2 Albumin/Globulin Ratio 2.0 Lipase 476 H Radiography Diagnostic Testing: Clinical Impression(s) from Imaging Studies Abdomen/Pelvis CT 11/16/24 14:35 IMPRESSION: No suspicious solid organ abnormality, simple hepatic cysts, no specific follow-up needed No free intraperitoneal fluid, air, or suspicious adenopathy. No CT evidence of an acute inflammatory process Uterus is present, the endometrium can not be accurately evaluated with CT Retained stool Reading Location: [facility] Discharge Plan Triage Chief Complaint: Nausea/Vomiting ED Provider: Javi Hamlin Dx/Rx/DC Orders Clinical Impression: Nausea with vomiting, unspecified, History of recent dental procedure Instructions: ED Vomiting (Adult) Prescriptions: New promethazine [Promethegan] 25 mg suppository 25 mg RECTAL Q6H PRN PRN (Reason: Nausea) Qty: 6 0RF ondansetron 8 mg tablet,disintegrating 8 mg PO Q8H PRN (Reason: nausea and vomiting) Qty: 20 0RF promethazine 25 mg tablet 25 mg PO Q6H PRN PRN (Reason: Nausea) Qty: 10 0RF No Action btnqb-[id number]-ibb-uqo-yrkltga-ast [krill oil] [id number],882-046-89-50 mg capsule 1 cap PO BID melatonin 10 mg capsule 5 mg PO HS cholecalciferol (vitamin D3) 5,000 unit tablet,disintegrating 5,000 unit PO DAILY magnesium 30 mg tablet 30 mg PO DAILY medroxyprogesterone 2.5 mg tablet 2.5 mg PO DAILY Qty: 90 4RF multivitamin,fy-zlqc-dkcyrwaa 1 TABLET tablet 1 tab PO DAILY estradiol [Vivelle-Dot] 0.05 mg/24 hr patch semiweekly 1 patch transdermal 2XW Qty: 24 0RF Rx Instructions: apply 1 patch for 3 days alternating with 1 patch for 4 days each week for 3 wks per 4-wk cycle gabapentin 300 mg capsule 300 mg PO QHS Qty: 90 4RF Primary Care Provider: Alejandro Hamilton Referrals: Alejandro Hamilton MD [Primary Care Provider] - 1-2 Days if not improving Print Language: Chadian Disposition Disposition: Home, Self Care
[2024-11-16 15:48] LABS: Lipase 476 U/L (13-75)
[2024-11-16 17:08] VITALS: BP 123/75; PULSE 81; RESP 14; O2SAT 100
[2024-11-16 17:47] VITALS: BP 123/75; PULSE 81; RESP 14; TEMP 37; O2SAT 100
== END 2024-11-16 17:49 | disposition home or self-care (01) ==
PROVIDERS: Emergency Provider Emergency Medicine; PCP Internal Medicine; Visit Provider Emergency Medicine
DX: R11.2 Nausea with vomiting, unspecified (principal); R19.11 Absent bowel sounds; R10.9 Unspecified abdominal pain; Z98.890 Other specified postprocedural states
CPT/HCPCS: 74177; 80053; 83690; 85025; 96361; 96374; 96375; 99284; Q9967; A4216; J2405